=== PATIENT | female | born 1980 | race Caucasian/White ===

== ENCOUNTER 2021-02-02 09:31 | Observation (INO) | payer OTHER, SELFPAY ==
[2021-02-02] VITALS (56 sets, daily range): BP systolic 132–189; BP diastolic 84–127; PULSE 55–100; RESP 9–21; TEMP 35.5–37; O2SAT 95–99; BMI 25.7
--- NOTE | ~2021-02-02 | XR_ITS ---
EXAMINATION: XR chest 2V DATE: 02/02/2021 10:10 INDICATION: Chest pain TECHNIQUE: PA and lateral views of the chest are obtained. COMPARISON: None available FINDINGS: The lungs are free of acute opacities. There is no pleural effusion or pneumothorax. The ca rdiomediastinal silhouette is normal. The visualized bones and soft tissues are unremarkable. IMPRESSION: 1. No acute cardiopulmonary abnormality. Reviewed, dictated and finalized at location B. LE UI DESIGNER
--- NOTE | 2021-02-02 09:33 | ECG_ITS ---
Measurements Intervals [place] Rate: 84 P: 20 LA: 146 QRS: 3 QRSD: 93 T: 28 QT: 331 QTc: 393 Interpretive Statements SINUS RHYTHM DELAYED PRECORDIAL R/S TRANSITION VOLTAGE CRITERIA FOR LVH MINIMAL Q WAVES- HIGH LATERAL LEADS BASELINE ARTIFACT- I, III, AVL BORDERLINE ECG Electronically Signed On 02-02-2021 10:04:29 [employer] [employer] by Sixto Willis D.O.
--- NOTE | 2021-02-02 10:46 | ED.ARRPALP ---
HPI - Arrhythmia/Palpitations General Chief Complaint: Arrhythmia/Palpitations Stated Complaint: CP,PALPATIONS Time Seen by Provider: 02/02/21 10:30 Source: patient and RN notes reviewed Mode of arrival: ambulatory Limitations: no limitations History of Present Illness HPI narrative: This is a 40 year old female with history of hypertension who presents for evaluation of chest pain and palpitations. Last night she developed palpitations. She states it feels like her heart is skip beats and then it will speed up. She is also having associated left chest pain and shortness of breath with her symptoms. She thought her symptoms were due to anxiety, but this morning she felt clammy so she came to ER. She still feels like she is having palpitations. She denies cough, fever, nausea, vomiting, diarrhea, leg swelling or calf pain. She denies history of palpations. Several years ago, she had episode of tachycardia when she was coming off from Heroin. She has not had any more episode. She denies any recent drug use. She took her losartan for hypertension this morning. Related Data Allergies Allergy/AdvReac Type Severity Reaction Status Date / Time amoxicillin Allergy Mild Rash Verified 02/02/21 10:39 sumatriptan Allergy Mild ANAPHALAXIS, Verified 02/02/21 10:39 WHEEZING Review of Systems Review of Systems: All systems reviewed & are unremarkable except as noted in HPI and below PMFSH Past Medical History Medical History (Updated 02/02/21 @ 17:01 by Sindi Powell MD) Hypertension Surgical History Surgical History (Updated 02/02/21 @ 10:58 by Sindi Powell MD) History of hysterectomy Social History Social History (Updated 02/02/21 @ 10:58 by Sindi Poewll MD) Smoking status: Never smoker Substance use: former Substance use type: heroin Exam Narrative: GENERAL: Well-appearing, well-nourished, and in no acute distress. HEAD: Normocephalic, atraumatic EYES: PERRLA and EOMI, conjunctiva clear without discharge EARS: TM's clear bilaterally without erythema or dullness NOSE: Nares clear, no rhinorrhea or epistaxis THROAT:Mucous membranes moist, Oropharynx normal without erythema, exudate, peritonsillar swelling or fluctuance NECK: Supple, without lymphadenopathy or mass RESPIRATORY: No respiratory distress, Airway patent, Respirations non-labored, Clear to auscultation without rales, rhonchi or wheeze HEART: Regular rate and rhythm. No murmur heard. Normal peripheral pulses. ABDOMEN: Soft, nontender, nondistended, normal active bowel sounds. No masses. No rebound or guarding, No organomegaly. EXTREMITIES: No edema, normal strength with full range of motion. SKIN: Warm, dry, normal color without rash NEURO: Alert and oriented x3. CN 2-12 grossly intact. No focal deficits. PSYCH: Normal mood and affect. Course Reevaluation(s) Reevaluation #1: Patient's initial BP was was 189/105 and it decreased to 150/100 without treatment initially. Patient was given metoprolol for her palpitations and she reported that she felt better. On recheck of her BP, it is elevated to 190/110s and now patient is complaining of headache . She was given hydralazine 10 mg IV that has decreased BP to 155/94. She will be admitted. I discussed with Kaylene Monroe who accepts patient to [facility] at this time instead of IMU. Date: 02/02/21 Time: 16:57 Vital Signs Vital signs: Vital Signs Temperature 97.6 F 02/02/21 09:46 Pulse Rate 76 02/02/21 09:46 Respiratory Rate 18 02/02/21 09:46 Blood Pressure 189/105 H 02/02/21 09:46 Pulse Oximetry 99 02/02/21 09:46 Temperature 97.6 F 02/02/21 09:46 Pulse Rate 62 02/02/21 15:00 Respiratory Rate 13 02/02/21 14:45 Blood Pressure 186/110 H 02/02/21 13:40 Pulse Oximetry 98 02/02/21 15:00 MDM - Arrhythmia/Palpitations Lab Data Attestation: I reviewed the patient's lab results. Result diagrams: 02/02/21 11:03 02/02
[2021-02-02] MEDS: ASPIRIN 81 MG CHEWABLE TABLET 324 MG PO (11:03)
[2021-02-02 11:18] LABS: Basophils Percent Auto 0.5 % (0.2-1.2); Eosinophils Percent Auto 0.5 % (0-4.4); Hematocrit 42.7 % (37.0-47.0); Immature Granulocyte Absolute 0.04 K/mm3 (0.00-0.031); Immature Granulocyte Percent A 0.5 % (0-0.5); Lymphocytes Absolute Auto 1.52 K/mm3 (0.9-3.2); Lymphocytes Percent Auto 18.6 % (18.3-44.2); Mean Corpuscular HGB Conc 32.8 g/dl (32-36); Mean Corpuscular Hemoglobin 26.8 pg (26-34); Mean Corpuscular Volume 81.8 fl (80-100); Monocytes Absolute Auto 0.3 K/mm3 (0.1-0.6); Monocytes Percent Auto 3.8 % (2.6-8.5); Neutrophils Absolute Auto 6.2 K/mm3 (1.3-6.7); Neutrophils Percent Auto 76.1 % (45.5-73.1); Platelet Count Result 284 k/mm3 (150-375); Red Blood Count 5.22 M/mm3 (4.2-5.4); Red Cell Distribution Width 13.9 % (11.5-14.5); White Blood Count 8.2 K/mm3 (4.5-10.0)
[2021-02-02 11:24] LABS: D Dimer 0.29 ug/mL (<0.48)
[2021-02-02 11:25] LABS: INR 1.1; Partial Thromboplastin Time 33.4 SECONDS (22.3-36.8); Prothrombin Time 14.1 Seconds (11.1-14.7)
[2021-02-02 13:03] LABS: Blood Urea Nitrogen 14 mg/dL (7-17); Estimated Glomerular Filt Rate > 60
[2021-02-02 13:15] LABS: Troponin I < 0.012 ng/mL (0.000-0.034)
[2021-02-02 13:32] LABS: Anion Gap 13 mmol/L (8-16); Calcium 9.2 mg/dL (8.4-10.2); Carbon Dioxide 22 mmol/L (22-30); Chloride 102 mmol/L (98-107); Estimated CRCL calculation 75 ml/min; Glucose 96 mg/dL (65-110); Potassium 3.6 mmol/L (3.4-5.0); Sodium 137 mmol/L (137-145)
[2021-02-02] MEDS: METOPROLOL TARTRATE 50 MG TAB 25 MG PO (13:41)
--- NOTE | 2021-02-02 13:42 | PC.NURSE ---
pt c/o intermittent palpitations that match up with pvcs noted on monitor. family at bedside.
[2021-02-02 15:08] LABS: Troponin I < 0.012 ng/mL (0.000-0.034)
[2021-02-02] MEDS: hydrALAZINE HCL 20 MG/ML VIAL 10 MG IV PUSH (16:04)
[2021-02-02 17:46] LABS: Amphetamine Screen Urine Negative (Negative); Barbiturate Screen Urine Negative (Negative); Benzodiazepines Screen Urine Positive (Negative); Cannabinoid Screen Urine Negative (Negative); Cocaine Screen Urine Negative (Negative); Methadone Screen Urine Positive (Negative); Opiate Screen Urine Negative (Negative); Phencyclidine Screen Urine Negative (Negative)
--- NOTE | 2021-02-02 18:24 | PM.IMHP ---
H&P: HPI History of Present Illness Date/Time: 02/02/21 18:24 this is a 40-year-old female patient who has a history of high blood pressure. The patient tells me that she is a recovering opioid addict in goes to a methadone clinic daily. The patient stated that she has to check into the methadone clinic every day to receive her medication. She stated that she did so today. The patient stated that she has been under a lot of stress with her oldest son recently. The patient used to have a counselor that she could talk to but no longer has a mental health counselor that she can talk to. She is not on anything for depression or anxiety. The patient admits that she still continues to have strong urges to use opioids. She denies using any other narcotics other than the methadone. The patient came to the emergency room with complaints of chest pain and palpitations. Last night she developed these palpitations. She felt like her heart was skipping beats. This morning she felt very clammy and came to the emergency room. The patient took her routine home medications this morning. Her blood pressure initially was 189/105. She was given several doses of hydralazine. Her EKG was read as sinus rhythm with a heart rate of 84. The patient was given aspirin, Lopressor, and 3 doses of hydralazine and IV Tylenol in the emergency room. Patient stated that she starting to feel somewhat better. Patient's drug toxicology screen came back positive for methadone and benzodiazepine. Troponin negative x2 The patient is being admitted to observation status on the date of service of 02/02/2021. Chief Complaint: Chest pain Review of Systems Review of Systems: All systems reviewed & are unremarkable except as noted in HPI and below Constitutional: Constitutional: Reports as per HPI and Reports no additional constitutional complaints Eyes: Eyes: Reports as per HPI and Reports no additional eye complaints ENT: Reports system reviewed and no additional complaints, except as documented and Reports Normal hearing present Cardiovascular: Cardiovascular: Reports no additional cardiovascular complaints Respiratory: Respiratory: Reports no additional respiratory complaints and Reports no additional respiratory complaints Gastrointestinal: Gastrointestinal: Reports as per HPI and Reports no additional gastrointestinal complaints Musculoskeletal: Musculoskeletal: Reports no additional musculoskeletal complaints Integumentary/Breasts: Skin/Breast: Reports system reviewed and no additional complaints, except as docu and Reports as per HPI Neurologic: Reports system reviewed and no additional complaints, except as documented, Reports as per HPI and Reports Normal hearing present Psychiatric: Psychiatric: Reports no additional psychiatric complaints and Reports as per HPI Endocrine: Endocrine: Reports no additional endocrine complaints Hematologic/Lymphatic: Hematologic/Lymphatic: Reports no additional hematologic/lymphatic complaints Allergic/Immunologic: Allergic/Immunologic: Reports no additional allergic/immunologic complaints PMFSH Past Medical History Medical History (Updated 02/02/21 @ 18:35 by Kaylene Monroe NP) Hypertension Opioid abuse Surgical History Surgical History (Updated 02/02/21 @ 18:35 by Kaylene Monroe NP) H/O tubal ligation History of hysterectomy Family History Family History (Updated 02/02/21 @ 18:35 by Kaylene Monroe NP) Mother Atrial fibrillation Social History Social History (Updated 02/02/21 @ 18:36 by Kaylene Monroe NP) Social History: The patient stated that she is and she has 3 children. She stated that she goes to the methadone clinic and receives methadone every day. She denies any alcohol marijuana or illicit drugs. 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 She does not have a durable power attorney lawyer for healthcare. Code status full code
--- NOTE | 2021-02-02 19:15 | ADMGEN ---
This patient, Gely Allen, was admitted to Medical Room 253-01. Patient/family oriented to hospital policies and general routines including ID bracelet, bed and alarms, visiting hours, pain management, procedures, bathroom and other care routines, personal items, smoking policy, room service/diet, and visiting hours. Information on how to activate the Rapid Response Team has been discussed. Patient/Family are encouraged to report perceived risks to care and to ask questions if they do not understand what they are told or what they should do.
[2021-02-02 21:49] LABS: Troponin I < 0.012 ng/mL (0.000-0.034)
[2021-02-03] VITALS (8 sets, daily range): BP systolic 128–152; BP diastolic 69–87; PULSE 61–89; RESP 14–18; TEMP 36.6–36.8; O2SAT 98–99
--- NOTE | 2021-02-03 05:27 | PC.NURSE ---
0520 SPOKE WITH DARIUS DEGROOT AT [facility] ABOUT PT METHADONE DOSE SHE CONFIRMED THE PT TAKES 170 MG OF METHADONE DAILY AND HER LAST DOSE WAS YESTERDAY 02/02
--- NOTE | 2021-02-03 06:00 | ECHO_ITS ---
Patient Info Name: Gely Allen Age: 40 years : 1980 Gender: Female Ht: 65 in Wt: 154 lbs BSA: 1.80 m2 HR: 60 bpm BP: 128 / 83 mmHg Heart Rhythm: Sinus Rhythm Technical Quality: Good Exam Date: 02/03/2021 10:22 AM Exam Location: [facility] Patient Status: Outpatient Admit Date: 02/02/2021 Staff Ordering Physician: Sindi Powell MD [employer] Worker Composites: Paige Segovia RDCS Attending Provider: Yaa Arvizu PA-C Referring Physician: Andre PALENCIA; Exam Type: CA echo doppler color flow Study Info Indications R00.2 - Palpitations Complete two-dimensional, color flow and Doppler transthoracic echocardiogram is performed. Summary 1. Complete two-dimensional, color flow and Doppler transthoracic echocardiogram is performed. 2. Normal left ventricular size and thickness with good systolic function of all segments. No segmental wall motion abnormalities. Calculated ejection fraction 65%. Grade 2 diastolic dysfunction. Normal global longitudinal strain,-18%. 3. There is trace tricuspid valve regurgitation. 4. No pulmonary hypertension, estimated pulmonary arterial systolic pressure is 24 mmHg. 5. Normal sinus rhythm. Left Ventricle Left ventricular chamber dimension is normal. Left ventricular systolic function is normal, estimated at 60-65%. There is no increased left ventricular wall thickness. Left ventricular septal wall motion is normal. The left ventricular diastolic function is normal. Global longitudinal strain is normal at 18 %. Right Ventricle Right ventricular chamber dimension is normal. Right ventricular systolic function is normal. Left Atria Left atrial chamber dimension is normal. Right Atria Right atrial chamber dimension is normal. Aortic Valve The aortic valve is trileaflet. There is no aortic valve sclerosis. There is no aortic valve stenosis. There is no aortic valve regurgitation. Pulmonic Valve The pulmonic valve is normal. There is no pulmonic valve stenosis. There is no pulmonic regurgitation. Mitral Valve The mitral valve has normal leaflets. There is no mitral valve stenosis. There is no mitral valve regurgitation. Tricuspid Valve The tricuspid valve leaflets are normal. There is no significant tricuspid valve stenosis. There is trace tricuspid valve regurgitation. No pulmonary hypertension, estimated pulmonary arterial systolic pressure is 24 mmHg. Pericardium/Pleural The pericardium appears normal. There is no pericardial effusion. Inferior Vena Cava Not well visualized inferior vena cava with >50% collapse upon inspiration consistent with Empty right atrial pressure, 10 mmHg. Aorta The aortic root size at the sinus of Valsalva is normal. The prox ascending aorta size is normal. Left Ventricular Outflow Tract Name Value Normal LVOT 2D LVOT Diameter 2.0 cm LVOT Doppler LVOT Peak Gradient 4 mmHg LVOT Mean Gradient 2 mmHg LVOT VTI 20 cm LVOT VTI/AV VTI Ratio 1.0 LVOT Stroke Volume
[2021-02-03] MEDS: methADONE HCL (*CRX) 10 MG TABLET 170 MG PO (08:39)
[2021-02-03] MEDS: LOSARTAN POTASSIUM 100 MG TABLET PO (08:39)
[2021-02-03] MEDS: LORazepam (*CRX) 0.5 MG TABLET PO ×2 (08:39→16:37)
[2021-02-03] MEDS: ENOXAPARIN 40 MG/0.4 ML SYRINGE SUB-Q (08:40)
[2021-02-03 09:48] LABS: Basophils Percent Auto 0.3 % (0.2-1.2); Eosinophils Percent Auto 0.5 % (0-4.4); Hematocrit 40.1 % (37.0-47.0); Hemoglobin 13.4 g/dL (12.0-15.0); Immature Granulocyte Absolute 0.02 K/mm3 (0.00-0.031); Immature Granulocyte Percent A 0.2 % (0-0.5); Lymphocytes Percent Auto 15.8 % (18.3-44.2); Mean Corpuscular HGB Conc 33.4 g/dl (32-36); Mean Corpuscular Hemoglobin 26.8 pg (26-34); Mean Corpuscular Volume 80.2 fl (80-100); Mean Platelet Volume 9.8 fl (7.4-10.4); Monocytes Absolute Auto 0.3 K/mm3 (0.1-0.6); Monocytes Percent Auto 2.8 % (2.6-8.5); Neutrophils Absolute Auto 7.1 K/mm3 (1.3-6.7); Neutrophils Percent Auto 80.4 % (45.5-73.1); Platelet Count Result 288 k/mm3 (150-375); Red Cell Distribution Width 13.8 % (11.5-14.5); White Blood Count 8.9 K/mm3 (4.5-10.0)
[2021-02-03 09:59] LABS: Anion Gap 10 mmol/L (8-16); Blood Urea Nitrogen 14 mg/dL (7-17); Calcium 9.4 mg/dL (8.4-10.2); Carbon Dioxide 26 mmol/L (22-30); Chloride 101 mmol/L (98-107); Estimated CRCL calculation 59 ml/min; Estimated Glomerular Filt Rate > 60; Glucose 237 mg/dL (65-110); Potassium 3.9 mmol/L (3.4-5.0); Sodium 137 mmol/L (137-145)
[2021-02-03] MEDS: ACETAMINOPHEN 325 MG TABLET 650 MG PO (14:00)
--- NOTE | 2021-02-03 17:06 | PM.IMPN ---
Progress Note: A&P Assessment and Plan (1) Hypertension, uncontrolled: Code(s): I10 - Essential (primary) hypertension Status: Acute Assessment and Plan: Blood pressure was elevated on presentation up to 175/127. No evidence of end-organ dysfunction. She received hydralazine and labetalol and did have improvement in her blood pressures Resume home losartan Her blood pressure is better controlled at this time. Last BP 150/78 Continue to monitor blood pressure trends. Consider 2nd antihypertensive agent if BP remains elevated (2) Palpitations: Code(s): R00.2 - Palpitations Status: Acute Assessment and Plan: EKG reviewed showing sinus rhythm. Telemetry reviewed with no arrhythmias or pauses, some occasional episodes of bradycardia Palpitations have resolved (3) Opioid abuse: Code(s): F11.10 - Opioid abuse, uncomplicated Status: Chronic Assessment and Plan: History of opiate abuse maintained on methadone. She goes to methadone clinic daily. Continue home methadone dose, verified by her methadone clinic Follow-up with methadone clinic on discharge (4) Chest pain: Code(s): R07.9 - Chest pain, unspecified Status: Acute Assessment and Plan: Episode of atypical chest pain this afternoon. See subjective for further details. Clinical picture not consistent with cardiac etiology. Troponins negative x3 EKG reviewed with no ischemic changes Possibly related to anxiety. Continue low-dose Ativan p.r.n. Possibly related to GERD. Will initiate antacids Continue to monitor Subjective Date/time seen: 02/03/21 17:06 Interval history: Date of service: 02/03/2021 Gely Allen is a 40-year-old female with a history of hypertension and opioid abuse on methadone who is seen in follow-up for hypertension and palpitations. She is feeling slightly better today. She no longer endorses palpitations. She did say that this afternoon after walking back from taking a shower she developed a midsternal chest discomfort that went up from her chest to her neck to her left ear. It then also went to her right ear briefly but that quickly resolved. Discomfort the midsternal area and the right ear persisted. She described this as a sharp sensation. She also thought that it was similar to a really bad heartburn. She denied ringing in the ears, ear pain, hearing changes. Denied jaw pain or arm pain. No diaphoresis. Denies anxiety, though noted she was much more anxious this morning. She did have another episode of supplementing palpitations while in the shower. She denies nausea, vomiting, fever, chills, dizziness, lightheadedness, weakness. Denies shortness of breath. No coughing. Denies swelling in her extremities. She does have a mild frontal headache. She has no additional concerns at this time. Review of Systems Review of Systems: All systems reviewed & are unremarkable except as noted in HPI and below Exam Narrative: Ms. Allen is well-nourished, well-appearing 40-year-old female who is lying supine in bed. She appears comfortable and is in NARD. Neuro: awake, alert and oriented x4, speech clear, no focal neuro deficits noted HEENMT: normocephalic, atraumatic, EOMI, sclerae anicteric, moist oral mucosa Neck: supple, no lymphadenopathy Chest: no reproducible chest pain with palpation Respiratory: clear to auscultation bilaterally, nonlabored breathing Cardio: regular rate, regular rhythm with S1-S2 Abdomen: nondistended, normoactive bowel sounds, soft, nontender to palpation Extremities: no edema, erythema, or tenderness to palpation, DP pulses 2+ bilaterally Skin: no rashes or lesions, warm and dry Psych: appropriate mood and affect, judgment and insight intact Objective Data Vital Signs Vital Signs: Vital Signs - 24 hr 02/02/21 17:18 02/02/21 17:30 02/02/21 17:45 Temperature Pulse Rate 77 69 66 Respiratory Rate
[2021-02-03] MEDS: FAMOTIDINE 20 MG TABLET PO (19:59)
[2021-02-04 06:00] VITALS: BP 137/84; PULSE 81; RESP 18; TEMP 37; O2SAT 98
[2021-02-04 06:42] LABS: Glucose Point of Care 91 mg/dl (65-105)
[2021-02-04] MEDS: LOSARTAN POTASSIUM 100 MG TABLET PO (08:22)
[2021-02-04] MEDS: methADONE HCL (*CRX) 10 MG TABLET 170 MG PO (08:22)
[2021-02-04] MEDS: FAMOTIDINE 20 MG TABLET PO (08:23)
[2021-02-04] MEDS: ENOXAPARIN 40 MG/0.4 ML SYRINGE SUB-Q (08:23)
[2021-02-04] MEDS: LORazepam (*CRX) 0.5 MG TABLET PO (08:23)
--- NOTE | 2021-02-04 11:06 | PM.DS ---
DS: Admitting Diagnosis Discharge Date 02/04/2021 Admitting Diagnosis Palpitations DS: Discharge Diagnosis Discharge Diagnosis (1) Hypertension, uncontrolled: Code(s): I10 - Essential (primary) hypertension Status: Acute Assessment and Plan: Blood pressure was elevated on presentation up to 175/127. No evidence of end-organ dysfunction. She received hydralazine and labetalol and did have improvement in her blood pressures. Home losartan was reviewed and blood pressures were well controlled. Instructed to monitor blood pressures at home daily for 1-2 weeks and follow-up with primary care provider for further monitoring (2) Palpitations: Code(s): R00.2 - Palpitations Status: Acute Assessment and Plan: EKG reviewed showing sinus rhythm. Telemetry reviewed with no arrhythmias or pauses, some occasional episodes of sinus bradycardia (48-55). Palpitations resolved. May have been related to anxiety. Follow-up with PCP in consider event monitor if recurrence. (3) Opioid abuse: Code(s): F11.10 - Opioid abuse, uncomplicated Status: Chronic Assessment and Plan: History of opiate abuse maintained on methadone. She goes to methadone clinic daily. Home methadone continue during hospitalization, follow-up with clinic on discharge (4) Chest pain: Code(s): R07.9 - Chest pain, unspecified Status: Acute Assessment and Plan: Episode of atypical chest pain 02/03/2021. Clinical picture not consistent with cardiac etiology. Troponins negative x3. EKG reviewed with no ischemic changes. May have been related to anxiety. Symptoms resolved entirely. DS: Summary Hospital Course Hospital Course: Date of admission: 02/02/2021 Date of discharge: 02/04/2021 Gely Allen is a 40-year-old female with a history of hypertension and opioid abuse on methadone who presented to the emergency department 820 with complaints palpitations. On presentation to the emergency department, her blood pressure was elevated at 189/95, additional vital signs are stable, CBC and BMP unremarkable, troponin, TSH within normal limits, and CXR showed no acute cardiopulmonary findings. She was admitted to the hospitalist service for further evaluation and management. Please see above for further details. Her blood pressure improved and remained stable on her home regimen. She will continue to monitor at home. Palpitations and chest pain resolved entirely. She will need to follow-up with her primary care provider in 1 week for further monitoring. She was feeling much better and requested discharge home. Given her overall improvement, she was determined to no longer require inpatient care and was felt to be stable for discharge. We discussed worrisome signs and symptoms for which to return and she was educated on her medications. She was discharged in hemodynamically stable condition on 02/04/2021. Status at Discharge Functional status at discharge: independent ambulation Overall status at discharge: patient is back to baseline Time Spent with Patient Time attestation: Total time spent providing and/or coordinating discharge services: 45 minutes Time spent: Greater than 30 minutes Exam Narrative: Ms. Allen is well-nourished, well-appearing 40-year-old female who is lying supine in bed. She appears comfortable and is in NARD. Neuro: awake, alert and oriented x4, speech clear, no focal neuro deficits noted HEENMT: normocephalic, atraumatic, EOMI, sclerae anicteric, moist oral mucosa Neck: supple, no lymphadenopathy Respiratory: clear to auscultation bilaterally, nonlabored breathing Cardio: regular rate, regular rhythm with S1-S2 Abdomen: nondistended, normoactive bowel sounds, soft, nontender to palpation Extremities: no edema, erythema, or tenderness to palpation, DP pulses 2+ bilaterally Skin: no rashes or lesions, warm and dry Psych: appropriate mood and affect, judgment and
== END 2021-02-04 12:54 | disposition home or self-care (01) ==
LOC: ANHED 17:01 → ANH2MED 18:09
PROVIDERS: Physician Assistant; Admitting Provider Internal Medicine; Emergency Provider General Practice; PCP Physician Assistant; Visit Provider Internal Medicine
DX: R07.9 Chest pain, unspecified (principal); R00.2 Palpitations; I10 Essential (primary) hypertension; F11.10 Opioid abuse, uncomplicated; Z23 Encounter for immunization
CPT/HCPCS: 36415; 71046; 80048; 80307; 82948; 83735; 84443; 84484; 85025; 85380; 85610; 85730; 90471; 90653; 93005; 93306; 96372; 96374; 96375; 99285; A9270; G0008; G0378; G0379; J0131; J0360; J1650

== ENCOUNTER 2022-06-30 10:07 | Inpatient (IN) | payer OTHER, SELFPAY ==
[2022-06-30] VITALS (20 sets, daily range): BP systolic 145–168; BP diastolic 62–105; PULSE 74–160; RESP 13–18; TEMP 36.9–37.2; O2SAT 100; BMI 27.8
--- NOTE | 2022-06-30 | ECHO_ITS ---
Patient Info Name: Gely Allen Age: 41 years : 1980 Gender: Female Ht: 65 in Wt: 167 lbs BSA: 1.88 m2 HR: 127 bpm BP: 168 / 62 mmHg Heart Rhythm: Tachycardia Technical Quality: Fair Exam Date: 06/30/2022 5:18 PM Exam Location: [facility] Patient Status: Inpatient Admit Date: 06/30/2022 Staff Ordering Physician: Ronny Barrientos MD Rotor Balancer: Marsha Gardiner RDCS Attending Provider: Peggy Quinn MD Referring Physician: Iliana MORALES; Exam Type: CA echo doppler color flow Study Info Indications - wide complex tachycardia R07.9 - Chest pain, unspecified Complete two-dimensional, color flow and Doppler transthoracic echocardiogram is performed. Summary 1. Complete two-dimensional, color flow and Doppler transthoracic echocardiogram is performed. 2. Left ventricular chamber dimension is normal. 3. Left ventricular systolic function is normal, estimated at 60-65%. 4. There is mildly increased left ventricular wall thickness. 5. The left ventricular diastolic function is normal. 6. The mid anteroseptal is akinetic. 7. The apical septum, apical cap, and mid inferoseptal are hypokinetic. 8. There is mild tricuspid valve regurgitation. Left Ventricle Left ventricular chamber dimension is normal. Left ventricular systolic function is normal, estimated at 60-65%. There is mildly increased left ventricular wall thickness. The left ventricular diastolic function is normal. The mid anteroseptal is akinetic. The apical septum, apical cap, and mid inferoseptal are hypokinetic. All other bennett appear normal. Right Ventricle Right ventricular chamber dimension is normal. Right ventricular systolic function is normal. Left Atria Left atrial chamber dimension is normal. Right Atria Right atrial chamber dimension is normal. Atrial Septum Intact interatrial septum visualized by color flow imaging. Aortic Valve The aortic valve is probable trileaflet. There is mild aortic valve sclerosis. There is no aortic valve stenosis. There is trace aortic valve regurgitation. Pulmonic Valve The pulmonic valve is normal. There is no pulmonic valve stenosis. There is trace pulmonic regurgitation. Mitral Valve The mitral valve has normal leaflets. There is no mitral valve stenosis. There is trace mitral valve regurgitation. Tricuspid Valve The tricuspid valve leaflets are normal. There is no significant tricuspid valve stenosis. There is mild tricuspid valve regurgitation. Pericardium/Pleural The pericardium appears normal. There is no pericardial effusion. Aorta The aortic root size at the sinus of Valsalva is normal. Left Ventricular Outflow Tract Name Value Normal LVOT 2D LVOT Diameter 2.0 cm LVOT Doppler LVOT Peak Gradient 5 mmHg LVOT Mean Gradient 3 mmHg LVOT VTI 17 cm LVOT VTI/AV VTI Ratio 0.9 LVOT Stroke Volume 51 ml LVOT CO 6.1 l/min LVOT
--- NOTE | ~2022-06-30 | CT_ITS ---
EXAMINATION: CTA chest PE protocol DATE: 06/30/2022 12:37 INDICATION: Chest pain. Shortness of breath. TECHNIQUE: Computed tomography angiography (CTA) of the chest was performed with 100 mL Omnipaque-350 intravenous contrast timed to evaluate the pulmonary arteries. Coronal maximum intensity projection 3D-reconstructions were created by the technologist. Automated exposure control and iterative reconst ruction technique were employed. The dose-length product was 556.02 mGy-cm. COMPARISON: None. FINDINGS: The lungs demonstrate mild atelectasis. No pleural effusion. There is a 6 mm nodule left lo wer lobe, likely not clinically significant. The heart size is normal. No pericardial effusion. There is no pulmonary embolus. There is mild thoracic spondylosis. IMPRESSION: 1. No pulmonary embolus. Reviewed, dictated and finalized at location A. IMPRESSION: 1. No pulmonary embolus.
--- NOTE | ~2022-06-30 | CT_ITS ---
EXAMINATION: CT brain wo con INDICATION: Altered mental status, lethargy COMPARISON: None TECHNIQUE: Standard unenhanced head CT. The dose-length product (DLP) was 605.33 mGy-cm. The mA was a djusted according to patient size. Iterative reconstruction technique was employed. FINDINGS: There is no intracranial hemorrhage, acute infarction, or abnormal mass lesion. The ventric les are normal. There is no abnormal mass effect or midline shift. The abdi-white matter differentiat ion is normal. The basal cisterns are patent. The orbits are normal. The paranasal sinuses, mastoids and calvarium are normal. IMPRESSION: 1. No acute intracranial abnormality. Reviewed, dictated and finalized at location B.
--- NOTE | ~2022-06-30 | XR_ITS ---
EXAMINATION: XR chest 2V DATE: 06/30/2022 11:15 INDICATION: Shortness of breath. Diffuse chest pain and weakness. TECHNIQUE: AP and lateral views of the chest were obtained. COMPARISON: Chest radiograph dated 02/02/2021 FINDINGS: The lungs remain clear with no focal airspace opacities, pulmonary edema, pleural effusion or pneumot horax. The cardiomediastinal silhouette is normal. Visualized bones and soft tissues are unremarkable . IMPRESSION: 1. No acute cardiopulmonary disease. Reviewed, dictated and finalized at location A.
--- NOTE | ~2022-06-30 | US_ITS ---
EXAMINATION: US soft tissue UE LT DATE: 06/30/2022 23:25 INDICATION: Swelling and erythema at the left upper arm TECHNIQUE: Multiple grayscale and Doppler ultrasound images of the region of concern at the left uppe r arm were obtained. COMPARISON: None FINDINGS: There is prominent reticular pattern of decreased echogenicity in the subcutaneous fat at the region of concern consistent with cellulitis. No abscess or other abnormal masses or fluid collections ident ified. IMPRESSION: 1. Prominent subcutaneous edema consistent with cellulitis. No evident abscess. Reviewed, dictated and finalized at location A.
--- NOTE | ~2022-06-30 | US_ITS ---
EXAMINATION: US soft tissue UE RT DATE: 06/30/2022 13:48 INDICATION: Induration, warmth and erythema at the right upper extremity. TECHNIQUE: Grayscale and color Doppler images of the region of concern at the right upper extremity w ere obtained. COMPARISON: None. FINDINGS: The right internal jugular vein, subclavian vein, axillary vein, brachial vein, basilic vein, radial vein, and ulnar vein are patent. There is focal soft tissue swelling and subcutaneous edema in the ri ght upper arm in the expected region of the right cephalic vein which was unable be identified either on grayscale images with color Doppler. There is more focal 12 x 7 mm region of decreased echogenici ty with spiculated margins and without posterior acoustic enhancement which could represent a more fo tosha small region of phlegmonous change. No discrete abscess. Per discussion with the gear cutter, the right cephalic vein was able to be identified more distally on real-time sonography and became obscu red upon reaching the region of edema but images were not recorded. IMPRESSION: 1. Focal soft tissue swelling and subcutaneous edema consistent with cellulitis with possible small r egion of phlegmonous change without organized abscess in the right upper extremity region of concern. This occurs along the reported course of the right cephalic vein which became obscured in this regio n and is unable to be identified with either grayscale or color Doppler imaging which raises concern for secondary thrombosis/occlusion. Findings were discussed with Jovana Wells, the nurse gopi amador for the patient, at 2:10 PM. 2. Otherwise patent right upper extremity veins with no definitive venous thrombosis. Reviewed, dictated and finalized at location A. IMPRESSION: 1. Focal soft tissue swelling and subcutaneous edema consistent with cellulitis with possible small region of phlegmonous change without organized abscess in the right upper extremity region of concern. This occurs along the reported cou rse of the right cephalic vein which became obscured in this region and is unab le to be identified with either grayscale or color Doppler imaging which raises concern for secondary thrombosis/occlusion. Findings were discussed with Esther Wells, the nurse caring for the patient, at 2:10 PM. 2. Otherwise patent right upper extremity veins with no definitive venous throm bosis.
--- NOTE | 2022-06-30 10:24 | ECG_ITS ---
Measurements Intervals [place] Rate: 96 P: 58 [place]: 219 QRS: -5 QRSD: 103 T: 8 QT: 310 QTc: 393 Interpretive Statements SINUS RHYTHM WITH FIRST DEGREE AV BLOCK POSSIBLE LEFT ATRIAL ENLARGEMENT [-0.1mV P WAVE IN V1/V2] NONSPECIFIC ST AND T-WAVE ABNORMALITY ABNORMAL ECG COMPARED TO ECG 02/02/2021 09:37:29 FIRST DEGREE AV BLOCK NOW PRESENT T-WAVE ABNORMALITY NOW PRESENT Electronically Signed On 06-30-2022 13:51:49 CDT by Ronny Barrientos M.D.
--- NOTE | 2022-06-30 10:33 | ED.SOB ---
HPI - SOB/Dyspnea General Chief Complaint: Shortness of Breath/Dyspnea <JESSIE Wilkinson Last Filed: 06/30/22 19:30> Stated Complaint: sob <JESSIE Wilkinson Last Filed: 06/30/22 19:30> Time Seen by Provider: 06/30/22 10:10 <JESSIE Wilkinson Last Filed: 06/30/22 19:30> Source: patient <JESSIE Wilkinson Last Filed: 06/30/22 19:30> Mode of arrival: ambulatory <JESSIE Wilkinson Last Filed: 06/30/22 19:30> Limitations: no limitations <JESSIE Wilkinson Last Filed: 06/30/22 19:30> History of Present Illness HPI Narrative: Patient is a 41 y/o female who presents to the ED with c/o SOB. Patient reports she had increased anxiety yesterday. This morning, she had an episode where she felt very out of it. Patient states she never lost consciousness but had a hard time responding to her daughter. She also feels that she is breathing very fast and having to work harder to breathe. She feels her heart racing. She notes a history of PVCs. She reports having intermittent midsternal chest pain since 6 AM this morning, no significant aggravating or alleviating factors. Patient also reports having tingling in her extremities, but denies nausea, vomiting, abdominal pain, fevers, cough or cold symptoms, lower extremity pain or swelling. Patient is a recovering IV drug user, opioids/fentanyl, and is currently on methadone. Patient reports a history of hypertension, but is not on any medication for this currently. Unable to tell me why. She denies history of hyperlipidemia, diabetes, smoking, family history of heart disease. <JESSIE Wilkinson Last Filed: 06/30/22 19:30> Related Data Home Medications: Home Medications Medication Instructions Recorded Confirmed methadone 190 mg PO DAILY 02/03/21 06/30/22 famotidine 20 mg tablet (Pepcid) 20 mg PO BID PRN Stomach Upset 06/30/22 06/30/22 <Melodie Sher PA-C - Last Filed: 06/30/22 19:30> Allergies/Adverse Reactions: Allergies Allergy/AdvReac Type Severity Reaction Status Date / Time amoxicillin Allergy Mild Rash Verified 06/30/22 10:24 sumatriptan Allergy Mild ANAPHALAXIS, Verified 06/30/22 10:24 WHEEZING <Melodie Sher PA-C - Last Filed: 06/30/22 19:30> Review of Systems Review of Systems: CONSTITUTIONAL: Denies fever, chills, or sweats. EYES: Denies visual changes. ENT: Denies rhinorrhea, congestion, sore throat. CARDIOVASCULAR: See HPI. RESPIRATORY: See HPI. GASTROINTESTINAL: Denies abdominal pain, nausea, vomiting, or diarrhea. GENITOURINARY: Denies dysuria or hematuria. SKIN: Denies rash or itching. MUSCULOSKELETAL: Denies back pain, joint pain, or myalgia. NEUROLOGIC: See HPI. PSYCHIATRIC: See HPI. <Melodie Sher PA-C - Last Filed: 06/30/22 19:30> All systems reviewed & are unremarkable except as noted in HPI and below <Melodie Sher PA-C - Last Filed: 06/30/22 19:30> PMFSH Past Medical History Medical History: Medical History Anxiety Bipolar disorder Depression Hypertension Opioid abuse <Melodie Sher PA-C - Last Filed: 06/30/22 19:30> Surgical History Surgical History: Surgical History History of hysterectomy History of tubal ligation <Melodie Sher PA-C - Last Filed: 06/30/22 19:30> Family History Family History: Family History Mother Atrial fibrillation <Melodie Sher PA-C - Last Filed: 06/30/22 19:30> Social History Social History: Social History Social History: Surrogate medical decision maker: Maria L Cuevas, mother. Code status: Full code. Smoking status: Never smoker Alcohol intake: never Substance
--- NOTE | 2022-06-30 11:07 | PC.NURSE ---
Pt to CT scan via stretcher.
[2022-06-30 11:20] LABS: Basophils Percent Auto 0.1 % (0.2-1.2); Hematocrit 38.2 % (37.0-47.0); Hemoglobin 12.5 g/dL (12.0-15.0); Immature Granulocyte Absolute 0.05 K/mm3 (0.00-0.031); Immature Granulocyte Percent A 0.3 % (0-0.5); Lymphocytes Absolute Auto 1.37 K/mm3 (0.9-3.2); Lymphocytes Percent Auto 9.1 % (18.3-44.2); Mean Corpuscular HGB Conc 32.7 g/dl (32-36); Mean Corpuscular Volume 85.7 fl (80-100); Mean Platelet Volume 10.4 fl (7.4-10.4); Monocytes Absolute Auto 0.7 K/mm3 (0.1-0.6); Monocytes Percent Auto 4.6 % (2.6-8.5); Neutrophils Absolute Auto 12.9 K/mm3 (1.3-6.7); Neutrophils Percent Auto 85.9 % (45.5-73.1); Platelet Count Result 344 k/mm3 (150-375); Red Blood Count 4.46 M/mm3 (4.2-5.4)
[2022-06-30] MEDS: SODIUM CHLORIDE 0.9% IV 1,000 ML 999 ML IV CONT ×2 (11:26→12:56)
[2022-06-30 11:28] LABS: INR 1.2; Partial Thromboplastin Time 28.3 SECONDS (22.3-36.8); Prothrombin Time 14.9 Seconds (11.1-14.7)
[2022-06-30 11:31] LABS: Albumin Level 4.5 g/dL (3.5-5.1); Alkaline Phosphatase 108 U/L (38-126); Anion Gap 16 mmol/L (8-16); Aspartate Amino Transferase 35 U/L (14-36); Bilirubin,Total 0.6 mg/dL (0.2-1.3); Blood Urea Nitrogen 16 mg/dL (7-17); Calcium 9.2 mg/dL (8.4-10.2); Carbon Dioxide 22 mmol/L (22-30); Chloride 103 mmol/L (98-107); Estimated CRCL calculation 74 ml/min; Estimated Glomerular Filt Rate > 60; Glucose 154 mg/dL (65-110); Potassium 3.6 mmol/L (3.4-5.0); Sodium 141 mmol/L (137-145)
[2022-06-30] MEDS: MAGNESIUM SULF 2 GM/WATER 50ML 2 GM/50 ML BAG IVPB ×2 (11:31→20:35)
--- NOTE | 2022-06-30 11:39 | PC.NURSE ---
radha in lab contacted regarded adding on mag level.
[2022-06-30 11:44] LABS: D Dimer 0.73 ug/mL (<0.48)
[2022-06-30 11:46] LABS: Alanine Aminotransferase 48 U/L (6-35)
--- NOTE | 2022-06-30 11:47 | PC.NURSE ---
pt asked to provide urine sample, pt stated she is unable to void at this time but will try in a few minutes .
[2022-06-30 11:52] LABS: Magnesium 2.1 mg/dL (1.6-2.3)
--- NOTE | 2022-06-30 12:25 | PC.NURSE ---
Pt to CT scan via stretcher at this time, pt is on tele monitor. HR 105.
[2022-06-30 13:34] LABS: Appearance Urine Cloudy (Clear); Bacteria Urine Rare /hpf; Bilirubin Urine Negative (Negative); Blood Urine Negative (Negative); Color Urine Yellow (Yellow); Glucose Urine UA Negative (Negative); Ketones Urine Trace mg/dL (Negative); Leukocyte Esterase Ur Negative LEU/UL (Negative); Nitrate Urine Negative (Negative); Non Pathogenic Casts 0-2; Protein Urine Negative (Negative); RBC Urine 0-2 /hpf (0-2); Specific Grav Ur 1.021 (1.001-1.035); Squamous Epithelial Cell Urine Few /hpf (Few); Urobilinogen Urine 0.2 mg/dL (<2.0); WBC Urine 0-5 /hpf
--- NOTE | 2022-06-30 13:38 | PC.NURSE ---
u/s in room at this time for test on left upper arm
[2022-06-30 13:42] LABS: Add Urine Microscopic? YES
[2022-06-30 15:05] LABS: Amphetamine Screen Urine Negative (Negative); Barbiturate Screen Urine Negative (Negative); Benzodiazepines Screen Urine Negative (Negative); Cannabinoid Screen Urine Negative (Negative); Cocaine Screen Urine Negative (Negative); Methadone Screen Urine Positive (Negative); Opiate Screen Urine Negative (Negative); Phencyclidine Screen Urine Negative (Negative)
--- NOTE | 2022-06-30 15:45 | PM.IMHP ---
H&P: HPI History of Present Illness Date/Time: 06/30/22 15:45 Chief Complaint: Chest pain and shortness a breath. Narrative: This is a 41-year-old female with history of opiate drug abuse on methadone who presented to the emergency department from for evaluation of chest pain shortness a breath. Patient provides the following history. She got up this morning at about 06:00 and was feeling anxious, short of breath, and reports intermittent, nonradiating midsternal chest discomfort which she has a difficult time describing. She also reports having an episode where she felt ?very out of it? but there was no loss of consciousness. She was afebrile on arrival and her blood pressures have been persistently in the 140s to 150 systolic. Pertinent labs include a WBC count of 15.0, D-dimer 0.73, sodium 141, potassium 3.6, calcium 9.2, magnesium 2.1, troponin 0.050. Chest CTA was negative for pulmonary embolism. EKG did not demonstrate any acute ST segment deviations. An ultrasound of the right arm showed a focal soft tissue swelling and subcutaneous edema consistent with cellulitis and possible right cephalic vein thrombus. Patient admits that she skin pops and though she has been trying to get clean she does admit to using fentanyl last night. While still in the ED she was noted to have a nearly 40 beat run of ventricular tachycardia while in the ED. She was alert the entire time but was nauseated, diaphoretic, short of breath, and she was having some chest discomfort. She was given magnesium and was admitted to the IMU. While in IMU she had a no other run of ventricular tachycardia, initially concerning for torsades though it appeared more monomorphic thereafter (lasting approximately 1 minute) and she was brought to the hospital laboratory technician as echocardiogram showed some wall motion abnormalities. Her coronary arteries were clean but she had several runs of polymorphic ventricular tachycardia requiring defibrillation. She was bolused with amiodarone and she is now in ICU on a lidocaine drip. She has no known personal or family history of long QT syndrome. Aside from methadone and the fentanyl last night, she does not take any medications on a routine basis. Review of Systems Review of Systems: Twelve systems were reviewed and are negative except for as per HPI. [facility] Past Medical History Medical History Anxiety Bipolar disorder Depression Hypertension Opioid abuse Surgical History Surgical History History of hysterectomy History of tubal ligation Family History Family History Mother Atrial fibrillation Social History Social History Social History: Surrogate medical decision maker: Maria L Cuevas, mother. Code status: Full code. Smoking status: Never smoker Alcohol intake: never Substance use: former Substance use type: heroin, opiates, painkillers and IV drugs Other substance usage details: fentanyl Last use: 06/29/22 Lack of Transportation: No Lack of Food: Never True Current Housing: I Have Housing Concerned About Future Housing: No Difficulty Paying Gas/Electric Bills: No Difficulty Paying for Meds: No Currently Unemployed: No Education: Associate Degree Difficulty w/ Childcare or Family Care: No Additional living arrangements comments: Lives in [place]. with 3 children. Spiritual care concerns: No Meds Home Medications and Allergies Home Medications Medication Instructions Recorded Confirmed Type methadone 190 mg PO DAILY 02/03/21 06/30/22 History blood pressure monitor (Blood #1 ea 02/04/21 06/30/22 Rx Pressure Kit) famotidine 20 mg tablet (Pepcid) 20 mg PO BID PRN Stomach Upset 06/30/22 06/30/22 History Allergies Allergy/AdvReac Type Severity Re
--- NOTE | 2022-06-30 16:07 | ADMGEN ---
This patient, Gely Allen, was admitted to IMU Room 204-01 on 06/30/22 at 1420. Patient/family oriented to hospital policies and general routines including ID bracelet, bed and alarms, visiting hours, pain management, procedures, bathroom and other care routines, personal items, smoking policy, room service/diet, and visiting hours. Information on how to activate the Rapid Response Team has been discussed. Patient/Family are encouraged to report perceived risks to care and to ask questions if they do not understand what they are told or what they should do.
--- NOTE | 2022-06-30 17:05 | PM.CNCAR ---
Assessment and Plan Assessment and plan (1) Wide-complex tachycardia: Code(s): R00.0 - Tachycardia, unspecified Status: Acute Assessment and Plan: The ER rhythm strip appears to be torsades. Rhythm is concerning for torsades but had minimum is an unstable wide complex tachycardic rhythm. I ordered a stat echocardiogram. I was present during at the echo and there is wall motion abnormalities in anterior septum apical septum apex. QTC is normal but patient does use methadone as well as fentanyl at this point. Patient has received IV magnesium. Will replace potassium with additional 40 mEq of potassium chloride p.o. x1. I have talked to Dr. Nova and plan given wide complex tachycardia (unstable rhythm), chest pain/tightness, acute dyspnea and elevated troponins, the plan will be to proceed to a coronary angiogram to rule out underlying CAD. Other possibilities include stress-induced cardiomyopathy, coronary spasm versus other (2) Acute dyspnea: Code(s): R06.00 - Dyspnea, unspecified Status: Acute Assessment and Plan: Possibly related to underlying CAD. Echo ordered (3) Elevated troponin: Code(s): R77.8 - Other specified abnormalities of plasma proteins Status: Acute Assessment and Plan: 325 mg p.o. aspirin be given if not already provided than 81 mg daily. (4) Intravenous drug abuse: Code(s): F19.10 - Other psychoactive substance abuse, uncomplicated Status: Acute Assessment and Plan: Social work to aid with support regarding her IV drug use (5) Anxiety: Code(s): F41.9 - Anxiety disorder, unspecified Status: Acute (6) Chest pain: Code(s): R07.9 - Chest pain, unspecified Status: Acute Assessment and Plan: Possible ACS. (7) Hypertension, uncontrolled: Code(s): I10 - Essential (primary) hypertension Status: Acute Plan She may need transfer to a tertiary facility depending on the results of the coronary angiogram. History of Present Illness History of Present Illness Consult date/time: 06/30/22 17:05 Requesting physician: Melodie Sher PA-C Consult reason: chest pain Reason For Visit: cp,sob,elevated troponin,sustained vtach,ivda Narrative: Reason for consultation: Chest pain, polymorphic VT IV drug use, shortness of breath Date of service 06/30/2022 Requesting provider: Melodie WATSON History: Patient is a 41-year-old female who has history of IV drug use including heroin and fentanyl. She scan pops. She has reduced her drug use because of use of methadone. She does have a history of high blood pressure also. She has been using fentanyl recently but acutely woke up today at 6:00 a.m. with shortness of breath and her heart pounding. She also has been having some relatively constant chest heaviness. The shortness of breath occurs at rest. Her heart pounding will come and go over. Of seconds to minutes and she feels hot, tingling and lightheaded and then her symptoms will temporarily subside and then come back. She denies any syncope, paroxysmal nocturnal dyspnea, orthopnea, edema. She came to the ER where she had an episode of sustained wide complex tachycardia appearing to be polymorphic ventricular tachycardia. She did spontaneously convert. She did not lose consciousness but was presyncopal. Review of Systems Review of Systems: All systems reviewed & are unremarkable except as noted in HPI and below Constitutional: Constitutional: Denies body ache(s) Eyes: Eyes: Denies blurry vision ENT: Reports Normal hearing present Cardiovascular: Cardiovascular: Reports chest pain, Reports lightheadedness and Reports palpitations Respiratory: Respiratory: Reports dyspnea Gastrointestinal: Gastrointestinal: Denies abdominal pain Genitourinary: Genitourinary: Denies hematuria Musculoskeletal: Musculoskeletal: Denies back pain Integumentary/Breasts: Skin/Breast: Reports dry s
--- NOTE | 2022-06-30 17:27 | ECG_ITS ---
Measurements Intervals [place] Rate: 111 P: 32 [place]: 148 QRS: -8 QRSD: 105 T: 42 QT: 333 QTc: 453 Interpretive Statements SINUS TACHYCARDIA NONSPECIFIC ST AND T WAVE ABNORMALITY COMPARED TO ECG 06/30/2022 11:28:57 SINUS TACHYCARDIA NOW PRESENT Electronically Signed On 07-01-2022 10:34:52 CDT by Kylie Nova M.D.
--- NOTE | 2022-06-30 17:31 | ECG_ITS ---
Measurements Intervals [place] Rate: 90 P: 68 WV: 219 QRS: 2 QRSD: 102 T: -1 QT: 345 QTc: 424 Interpretive Statements SINUS RHYTHM WITH FIRST DEGREE AV BLOCK NONSPECIFIC ST & T-WAVE ABNORMALITY aBNORMAL ECG COMPARED TO ECG 06/30/2022 10:16:24 NO SIGNIFICANT CHANGES Electronically Signed On 06-30-2022 17:57:00 CDT by Ronny Barrientos M.D.
[2022-06-30] MEDS: ASPIRIN 81 MG CHEWABLE TABLET 324 MG PO (17:58)
[2022-06-30] MEDS: POTASSIUM CHLORIDE 20 MEQ TABLET 40 MEQ PO (17:58)
[2022-06-30 18:00] LABS: CRP 1.3 mg/dL (<1.0); Creatine Kinase 61 U/L (30-135)
[2022-06-30 18:02] LABS: Lactic Acid Reflex 3.7 mmol/L (0.7-2.0)
[2022-06-30 18:11] LABS: Hemoglobin A1C 5.7 % (<5.7)
[2022-06-30 18:18] LABS: Troponin I 0.406 ng/mL (0.000-0.034)
--- NOTE | 2022-06-30 18:20 | WPDMODSED ---
Moderate Sedation Note-Pt Data Patient Data Diagnosis: Torsades, ACS Present Complaint: Torsades, ACS Procedure to be performed/Plan: Coronary angiography, LHC, +/- PCI Allergies Allergy/AdvReac Type Severity Reaction Status Date / Time amoxicillin Allergy Mild Rash Verified 06/30/22 10:24 sumatriptan Allergy Mild ANAPHALAXIS, Verified 06/30/22 10:24 WHEEZING Home Medications Medication Instructions Recorded Confirmed Type methadone 190 mg PO DAILY 02/03/21 06/30/22 History blood pressure monitor (Blood #1 ea 02/04/21 06/30/22 Rx Pressure Kit) famotidine 20 mg tablet (Pepcid) 20 mg PO BID PRN Stomach Upset 06/30/22 06/30/22 History Current Medications: Active Medications Acetaminophen (Acetaminophen 325 Mg Tablet) 650 mg PO Q6H PRN PRN Reason: Mild Pain (1-3) or Fever Enoxaparin Sodium (Enoxaparin 80 Mg/0.8 Ml Syringe) 75 mg SUB-Q Q12HR KENTRELL Imipenem/Cilastatin Sodium 1, (000 mg/ Sodium Chloride) 250 mls @ 375 mls/hr IVPB Q6HR KENTRELL Last Admin: 06/30/22 17:58 Dose: 375 mls/hr Perflutren Lipid Microsphere (Perflutren Lipid Microspheres 1.5 Ml Vial Diluted To 10 Ml Total Volume) 0 ml IV PUSH ONCE PRN; Protocol PRN Reason: adequate visualization Stop: 07/02/22 17:01 Sedation/Anesthesia: No previous sedation/anesthesia problems (including family history). [facility] Past Medical History Medical History Anxiety Bipolar disorder Depression Hypertension Opioid abuse Surgical History Surgical History History of hysterectomy History of tubal ligation Family History Family History Mother Atrial fibrillation Social History Social History Social History: The patient stated that she is and she has 3 children. She stated that she goes to the methadone clinic and receives methadone every day. She denies any alcohol marijuana or illicit drugs. 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 She does not have a durable power assistant city attorney for healthcare. Code status full code Smoking status: Never smoker Alcohol intake: never Substance use: former Substance use type: heroin, opiates, painkillers and IV drugs Other substance usage details: fentanyl Last use: 06/29/22 Lack of Transportation: No Lack of Food: Never True Current Housing: I Have Housing Concerned About Future Housing: No Difficulty Paying Gas/Electric Bills: No Difficulty Paying for Meds: No Currently Unemployed: No Education: Associate Degree Difficulty w/ Childcare or Family Care: No Spiritual care concerns: No Mod Sed Physical Exam Physical Exam Pre Procedural Exam: Normal: Appearance, Lungs, Heart Rate, Heart Rhythm, Neuro Exam, Abdomen, Extremities and Skin Hours since solid foods: 5 Hours since liquid intake: 5 Mallampati Classification: class III Internal Medicine - PN: Obj Da Vital Signs Vital Signs: Vital Signs - 24 hr 06/30/22 10:13 06/30/22 10:21 06/30/22 10:41 Temperature Pulse Rate 107 H Respiratory Rate 15 Blood Pressure 145/92 H 155/100 H Pulse Oximetry 100 100 Oxygen Delivery Room Air Room Air 06/30/22 10:42 06/30/22 10:44 06/30/22 11:50 Temperature Pulse Rate 95 Respiratory Rate 15 Blood Pressure 166/86 H 158/83 H 154/92 H Pulse Oximetry 100 Oxygen Delivery 06/30/22 12:47 06/30/22 13:38 06/30/22 13:41 Temperature Pulse Rate 106 H 116 H 114 H Respiratory Rate 13 14 16 Blood Pressure 166/105 H 154/91 H 154/91 H Pulse Oximetry 100 100 100 Oxygen Delivery 06/30/22 13:44 06/30/22 16:00 06/30/22 14:20 Temperature 37.2 C Pulse Rate 108 H Respiratory Rate 18 Blood Pressure 152/98 H Pulse Oximetry 100 Oxygen Delivery
--- NOTE | 2022-06-30 18:22 | WPDCARDPROC ---
Cardiac Cath Procedure Note Date of procedure:: 06/30/22 Performing physician:: CATHETERIZATION LABORATORY REPORT Procedure Date: 06/30/2022 Willow Analyst: Kylie Nova M.D., [facility]? Referring Physician: John Barrientos M.D. ? Procedure Start Time: 18:39 Procedure End Time: 19:05 Total Procedure Time: 26 minutes Pre-op Diagnosis: Torsades / Acute Coronary Syndrome Post-op Diagnosis: Non-obstructive coronary arteries Elevated left ventricular end-diastolic pressure of 30mmHg Takotsubo cardiomyopathy Ventricular tachycardia - monomorphic and polymorphic VT s/p 4 shocks while on tin can laborer table Procedure(s): Ultrasound-guided access of the right common femoral artery and the right femoral vein Coronary angiography Left heart cath Left ventricular angiogram Angioseal closure of the right common femoral artery Venous sheath sutured in place Access Site: Right common femoral artery (right radial artery not pursued due to concern for possible cellulitis in RUE) Right femoral vein Brief History and Clinical Indications: Patient is a 41-year-old female with a history of IV drug use who is referred for urgent cardiac cath for Torsades / acute coronary syndrome. All risks, benefits and alternatives to left heart catheterization with or without percutaneous coronary intervention was discussed at length with the patient. Risk of complications including but not limited to bleeding, infection, arrhythmia, stroke, worsening kidney function, blood loss, groin hematoma, limb loss, emergency coronary artery bypass grafting, and even were discussed with the patient and all questions were answered. The patient understood and wished to proceed. Time out called, patient name, date of , medical record number, allergies, procedure performed, identify Willow Analyst, patient and staff member concurred with accurate data, procedure carried on. Findings: LEFT HEART CATHETERIZATION FINDINGS: 1. Left main: Large caliber vessel. The left main coronary artery is widely patent without any significant obstructive disease. 2. Left anterior descending: Large caliber vessel. The LAD and the diagonal branches have mild luminal irregularities without any significant obstructive angiographic disease. 3. Left circumflex: Large caliber vessel. The left circumflex artery and the main marginal branches have mild luminal irregularities without any significant obstructive angiographic disease. The left circumflex is co-dominant 4. Right coronary artery: Large caliber vessel. The RCA has mild luminal irregularities without any significant obstructive angiographic disease. The RCA is co-dominant vessel. 5. Left ventricle: A. End-diastolic pressure 30mmHg. B. LV gram: Left ventricular wall motion consistent with a Takotsubo pattern. C. No significant gradient across aortic valve on catheter pullback. Description of Procedure: Informed consent signed and placed in the chart. Patient transferred to tin can laborer room. Prepped and draped in usual sterile fashion. 2% lidocaine in right groin area. Micropuncture needle used to access right common femoral artery with Seldinger technique under fluoroscopic and ultrasound guidance. J wire advanced, micropuncture cannula placed. Right iliofemoral angiogram performed, access confirmed and micropuncture cannula exchanged for 6-FR sheath. Micropuncture needle used to access right femoral vein under ultrasound guidance. J wire advanced, micropuncture cannula placed. 4F sheath placed in right femoral vein. 5F FL 4 diagnostic catheter engaged Left Main Coronary Artery. 5F FR 4 diagnostic catheter engaged Right Coronary Artery. Multiple orthogonal angiogram obtained and reviewed 5F Pigtail diagnostic catheter crossed aortic valve to obtain LVEDP, LV angiogram deferred. Hemostasis was achieved by 6F Angioseal. Venous sheath sutured in place. Throughout the whole procedure, patient intermittently went into monomorphic and p
[2022-06-30 18:42] LABS: HIV 1/2 Ab P24 Ag Result Negative (Negative)
[2022-06-30 18:59] LABS: Hepatitis B Surface Antigen Negative (Negative)
[2022-06-30 19:04] LABS: HAV RESULT Negative (Negative); Hepatitis B Core IgM Result Negative (Negative)
[2022-06-30 19:16] LABS: Hepatitis C Virus Antibody Negative (Negative)
[2022-06-30] MEDS: MAGNESIUM SULF 2 GM/WATER 50ML 2 GM/50 ML BAG 50 GM (20:17)
[2022-06-30 20:36] LABS: Reflex Lactic Acid Yes or No Add Lactic
[2022-06-30] MEDS: MORPHINE SULFATE (*CRX) 2 MG/ML INJ IV PUSH (23:17)
[2022-07-01] VITALS (60 sets, daily range): BP systolic 124–220; BP diastolic 72–155; PULSE 99–139; RESP 13–31; TEMP 36.9–37.9; O2SAT 91–100
[2022-07-01] MEDS: LORazepam INJ (*CRX) 2 MG/ML VIAL 1 MG IV PUSH ×4 (00:15→13:26)
[2022-07-01 04:50] LABS: Hematocrit 39.6 % (37.0-47.0); Hemoglobin 13.2 g/dL (12.0-15.0); Mean Corpuscular HGB Conc 33.3 g/dl (32-36); Mean Corpuscular Hemoglobin 28.1 pg (26-34); Mean Corpuscular Volume 84.3 fl (80-100); Mean Platelet Volume 10.5 fl (7.4-10.4); Platelet Count Result 368 k/mm3 (150-375); Red Cell Distribution Width 13.1 % (11.5-14.5); White Blood Count 18.9 K/mm3 (4.5-10.0)
[2022-07-01 05:15] LABS: Anion Gap 12 mmol/L (8-16); Blood Urea Nitrogen 11 mg/dL (7-17); Calcium 8.6 mg/dL (8.4-10.2); Carbon Dioxide 25 mmol/L (22-30); Chloride 103 mmol/L (98-107); Estimated CRCL calculation 67 ml/min; Estimated Glomerular Filt Rate > 60; Glucose 139 mg/dL (65-110); Lactic Acid 1.3 mmol/L (0.7-2.0); Magnesium 2.7 mg/dL (1.6-2.3); Potassium 3.2 mmol/L (3.4-5.0); Sodium 140 mmol/L (137-145)
[2022-07-01 05:16] LABS: Anion Gap 13 mmol/L (8-16); Blood Urea Nitrogen 11 mg/dL (7-17); Calcium 8.5 mg/dL (8.4-10.2); Carbon Dioxide 24 mmol/L (22-30); Chloride 103 mmol/L (98-107); Estimated CRCL calculation 67 ml/min; Estimated Glomerular Filt Rate > 60; Glucose 138 mg/dL (65-110); Magnesium 2.7 mg/dL (1.6-2.3); Potassium 3.2 mmol/L (3.4-5.0); Sodium 140 mmol/L (137-145)
[2022-07-01 06:23] LABS: Glucose Point of Care 117 mg/dl (65-105)
--- NOTE | 2022-07-01 07:17 | PC.NURSE ---
EKG completed in ER on June 30, 2022 at 1126
[2022-07-01] MEDS: KCL 40 MEQ/WATER 100 ML 100 ML 25 ML IVPB (08:47)
[2022-07-01] MEDS: ENOXAPARIN 40 MG/0.4 ML SYRINGE SUB-Q (08:49)
[2022-07-01] MEDS: SODIUM CHLORIDE 0.9% IV 1,000 ML 75 ML IV CONT (09:35)
--- NOTE | 2022-07-01 10:42 | PM.PNCARD ---
Progress Note: A&P Assessment and Plan (1) Wide-complex tachycardia: Code(s): R00.0 - Tachycardia, unspecified Status: Acute Assessment and Plan: Wide complex tachycardia. Some strips appear to be torsades and other strips appear to be more monomorphic in etiology.? Methadone as cause or simple stress induced cardiomyopathy. Regardless she is more stable at this point. Awaiting transfer to [facility] for further evaluation including EP. Will reduce her lidocaine drip to 3 mg / minute (2) Acute dyspnea: Code(s): R06.00 - Dyspnea, unspecified Status: Acute Assessment and Plan: Possibly related to underlying CAD. Preserved EF but wall motion abnormalities are noted (3) Elevated troponin: Code(s): R77.8 - Other specified abnormalities of plasma proteins Status: Acute Assessment and Plan: Continue aspirin 81 mg p.o. daily (4) Intravenous drug abuse: Code(s): F19.10 - Other psychoactive substance abuse, uncomplicated Status: Acute Assessment and Plan: Social work to aid with support regarding her IV drug use (5) Anxiety: Code(s): F41.9 - Anxiety disorder, unspecified Status: Acute (6) Chest pain: Code(s): R07.9 - Chest pain, unspecified Status: Acute Assessment and Plan: Possible ACS. (7) Hypertension, uncontrolled: Code(s): I10 - Essential (primary) hypertension Status: Acute Assessment and Plan: Will add losartan 25 mg p.o. daily 1st dose now Subjective Date/time seen: 07/01/22 10:42 Interval history: 41-year-old with presyncope, IV drug use, wide complex tachycardia Date of service 07/01/2022: Status post coronary angiogram is detailed below. She did require multiple cardioversions yesterday but nothing since yesterday evening. She is tachycardic but overall feels better. She is having some hallucinations by denies any chest pain, shortness of breath, syncope, presyncope Review of Systems Review of Systems: All systems reviewed & are unremarkable except as noted in HPI and below Constitutional: Constitutional: Denies body ache(s), Reports excessive sweating and Reports headache(s) Eyes: Eyes: Denies blurry vision ENT: Reports Normal hearing present and Reports headache(s) Cardiovascular: Cardiovascular: Reports chest pain, Reports lightheadedness, Reports palpitations and Reports dyspnea Respiratory: Respiratory: Reports dyspnea Gastrointestinal: Gastrointestinal: Denies abdominal pain Genitourinary: Genitourinary: Denies hematuria Musculoskeletal: Musculoskeletal: Denies back pain Integumentary/Breasts: Skin/Breast: Reports dry skin Neurologic: Reports Normal hearing present and Reports headache(s) Psychiatric: Psychiatric: Reports anxiety Endocrine: Endocrine: Reports excessive sweating and Reports palpitations Hematologic/Lymphatic: Hematologic/Lymphatic: Denies easy bleeding Allergic/Immunologic: Allergic/Immunologic: Denies GI upset with certain foods Exam Narrative: Appears stated age Const: General: uncomfortable HENMT: Face/Nose/Sinus: Normal nares present Mouth: Yes moist mucous membranes Eyes: Sclera: sclerae normal EOM: EOMs intact bilaterally Neck: Neck: supple Thyroid: thyroid normal Carotids: no bruits Chest: Other: No reproducible chest wall pain to palpate Resp: Effort & Inspection: normal respiratory effort Auscultation: clear to auscultation bilaterally Cardio: Rate: tachycardic Rhythm: regular rhythm Other: No obvious murmur GI: Inspection: non-distended Auscultation: normal bowel sounds Skin: General skin exam: normal color and wounds noted Wounds: wounds noted Other: Evidence of skin popping noted Neuro: Cranial nerves: Yes Normal hearing present Speech: normal speech Sensory Exam: normal sensation Extrem: General: normal to inspection and no edema Other: Right groin femoral vein line is still in plac
[2022-07-01] MEDS: LIDOCAINE HCL 1% PF INJ 5 ML VIAL INFILTRATE (11:20)
--- NOTE | 2022-07-01 11:33 | WPDCNINT ---
Assessment and Plan Assessment and plan (1) Wide-complex tachycardia: Code(s): R00.0 - Tachycardia, unspecified Status: Acute Assessment and Plan: Wide complex tachycardia likely related to methadone, fentanyl or other drugs. -cardiology following the patient -patient currently on lidocaine infusion and more stable -not required a shock since 8:00 p.m. on 06/30/2022 -patient has been accepted to [facility] for evaluation by mail processing associate, waiting for a bed (2) Elevated troponin: Code(s): R77.8 - Other specified abnormalities of plasma proteins Status: Acute Assessment and Plan: Elevated troponin with chest pain hand and white complex tachycardia, patient was [facility] where she had an angiogram that showed takotsubo cardiomyopathy, nonobstructive coronary arteries, elevated LVEDP and was given Lasix -cardiology following the patient -continue aspirin (3) Intravenous drug abuse: Code(s): F19.10 - Other psychoactive substance abuse, uncomplicated Status: Acute Assessment and Plan: Patient is on methadone and goes to methadone clinic in [place] white admits to skin popping fentanyl -methadone currently on hold due to concerns of prolonged QT and polymorphic ventricular tachycardia -will monitor for withdrawal symptoms (4) Hypertension, uncontrolled: Code(s): I10 - Essential (primary) hypertension Status: Acute Assessment and Plan: Patient started on losartan (5) Cellulitis of left upper arm: Code(s): L03.114 - Cellulitis of left upper limb Status: Acute Assessment and Plan: Right upper extremity cellulitis, likely leads from skin popping -continue vancomycin and imipenem -cultures have been obtained and will deescalate Plan DVT prophylaxis: Lovenox SQ Stress ulcer prophylaxis: Not indicated Nutrition: NPO except meds Code Status: Full code Critical Care Time Spent: 51 minutes Due to a high probability of clinically significant, life threatening deterioration, the patient required my highest level of preparedness to intervene emergently and I personally spent this critical care time directly and personally managing the patient. This critical care time included obtaining a history; examining the patient; pulse oximetry; ordering and review of studies; arranging urgent treatment with development of a management plan; evaluation of patient's response to treatment; frequent reassessment; and discussions with other providers. It was exclusive of separately billable procedures and treating other patients and teaching time. Please see Assessment and Plan section and the rest of the note for further information on patient assessment and treatment This dictation may have been done utilizing a voice recognition system. Attempts have been made to correct errors. However, there may be uncorrected grammatical, spelling, and recognitions errors present. Optical Laboratory Mechanic Consult Note Consult date: 07/01/22 Reason for consult: Chest pain, polymorphic V-tach, IV drug use, shortness of breath HPI: Gely Allen is a 41 year old female with past medical history of opiate drug use, on methadone, history of anxiety, depression, essential hypertension presented the ED. Patient has been recovering addict and is on methadone. She did use fentanyl recently and on the day of admission she woke up with complains of chest heaviness and shortness of breath along with palpitations. She did feel lightheaded. In the ER she had an episode sustained wide complex ventricular tachycardia. She was admitted to IMU where she had another episode of wide complex ventricular tachycardia thought to be torsades and received a shock, patient was taken to [facility] where she was found to Takotsubo cardiomyopathy, nonobstructive coronary arteries, elevated LVEDP 30 mmHg and was given Lasix, she had ventricular tachycardia, more more amorphic and polymor
[2022-07-01] MEDS: LOSARTAN POTASSIUM 25 MG TABLET PO (12:08)
[2022-07-01] MEDS: POTASSIUM CHLORIDE 20 MEQ PACKET (FOR LIQUID) 40 MEQ PO (12:10)
[2022-07-01] MEDS: ASPIRIN 81 MG ENTERIC TABLET PO (12:10)
[2022-07-01] MEDS: ACETAMINOPHEN 325 MG TABLET 650 MG PO (13:26)
[2022-07-01] MEDS: HYDROcodone/acetaminophen (*CRX) 5-325 MG TABLET 1 TAB PO (13:26)
[2022-07-01] MEDS: hydrALAZINE HCL 20 MG/ML VIAL 10 MG IV PUSH (13:28)
[2022-07-01] MEDS: CENTRAL LINE FLUSH 10 ML IV PUSH (13:28)
--- NOTE | 2022-07-01 16:05 | PM.IMPN ---
Progress Note: A&P Assessment and Plan (1) Ventricular tachycardia: Code(s): I47.20 - Ventricular tachycardia, unspecified Status: Acute Assessment and Plan: She has intermittent wide complex tachycardia is consistent with polymorphic ventricular tachycardia. She has been on methadone which can cause QT prolongations which may very well be what is precipitating the torsades [place]. However she has also been on fentanyl and/or other drugs. She has thus far been given potassium, magnesium, amiodarone, and she is now on a lidocaine drip. [facility] system contacted to initiate transfer for EP consult. Awaiting bed placement No shock required since 8:00 p.m. on 06/30/2022 (2) Chest pain: Code(s): R07.9 - Chest pain, unspecified Status: Acute Assessment and Plan: Related to above. Clean coronaries noted on catheterization 06/30/2022 findings of taco soup 0 cardiomyopathy (3) Elevated troponin: Code(s): R77.8 - Other specified abnormalities of plasma proteins Status: Acute Assessment and Plan: Related to above. Trend to peak. (4) Thrombosis of right cephalic vein: Code(s): I82.611 - Acute embolism and thrombosis of superficial veins of right upper extremity Status: Acute Assessment and Plan: Right upper extremity soft tissue ultrasound shows evidence of possible thrombosis/occlusion of the right cephalic vein. Likely related to skin popping. Warm compresses ordered. (5) Intravenous drug abuse: Code(s): F19.10 - Other psychoactive substance abuse, uncomplicated Status: Acute Assessment and Plan: She goes to the methadone clinic in [place] daily but admits to skin popping fentanyl last night. Methadone on hold as there are concerns that may be the etiology of the slightly prolonged QT and polymorphic ventricular tachycardia. Monitor closely for withdrawal symptoms. (6) Cellulitis of left upper arm: Code(s): L03.114 - Cellulitis of left upper limb Status: Acute Assessment and Plan: Continue empiric imipenem and vancomycin for right upper extremity cellulitis. She skin pops and is at risk for MRSA. Imipenem ordered for broader coverage and to cover anaerobes. Subjective Date/time seen: 07/01/22 16:05 Interval history: Chart reviewed. Feels okay. Denies any chest pain or shortness of breath. Required multiple cardioversion yesterday none overnight. Reports she is on methadone for her opiate dependence however she is still using fentanyl Review of Systems Review of Systems: All systems reviewed & are unremarkable except as noted in HPI and below Exam Narrative: General: Moderately ill-appearing female supine in bed. HEENT: Normocephalic, atraumatic. PERRL, EOMI. Sclera anicteric. Tacky mucous membranes. Neck: Supple. No JVD or lymphadenopathy. Respiratory: Lungs are clear to auscultation bilaterally. Cardiovascular: Tachycardic with normal S1-S2. No obvious murmur. Gastrointestinal: Abdomen is soft, nontender, and nondistended with positive bowel sounds. Skin: Warm and dry. Significant scarring over both upper arms from longstanding history of skin popping. The left upper arm is a bit swollen, red, and indurated. It is a bit tender to palpation. Some scabbed over areas. Extremities: No cyanosis, clubbing, or edema. Radial and pedal pulses intact. Neurological: Alert. Cranial nerves 2-12 are grossly intact. No gross focal deficits to casual conversation. Psychiatric: Cooperative. Appropriate mood. Flat affect. Objective Data Vital Signs Vital Signs: Vital Signs - 24 hr 06/30/22 16:33 06/30/22 16:34 06/30/22 16:33 Temperature Pulse Rate Respiratory Rate Blood Pressure 154/90 H 160/81 H 150/85 H Pulse Oximetry Oxygen Delivery 06/30/22 16:50 06/30/22 18:00 06/30/22 20:07 Temperature Pulse Rate 74 113 H 98 Respiratory Rate Blood Pressure 168/62 H 154/94 H Pulse
--- NOTE | 2022-07-01 18:01 | PM.TDS ---
Transfer Discharge Sum: Prov Provider Date of admission: 07/01/22 10:04 Primary care physician: Ravi Flores, PA Admitting clinician: Peggy Quinn MD Consults: 06/30/22 13:45 Consult to Physician Routine Comment: Consulting Provider: Ronny Barrientos Reason for consultation: CP, SOB, elev trop, sustained VT Has provider been notified: Yes DS: Admitting Diagnosis Discharge Date 07/01/2021 Admitting Diagnosis White complex tachycardia DS: Discharge Diagnosis Discharge Diagnosis (1) Ventricular tachycardia: Code(s): I47.20 - Ventricular tachycardia, unspecified Status: Acute (2) Chest pain: Code(s): R07.9 - Chest pain, unspecified Status: Acute (3) Elevated troponin: Code(s): R77.8 - Other specified abnormalities of plasma proteins Status: Acute (4) Thrombosis of right cephalic vein: Code(s): I82.611 - Acute embolism and thrombosis of superficial veins of right upper extremity Status: Acute (5) Intravenous drug abuse: Code(s): F19.10 - Other psychoactive substance abuse, uncomplicated Status: Acute (6) Cellulitis of left upper arm: Code(s): L03.114 - Cellulitis of left upper limb Status: Acute Transfer Discharge Sum: Med Medications Active and Home Medications: Home Medications methadone 190 mg PO DAILY 02/03/21 [History Confirmed 06/30/22] blood pressure monitor (Blood Pressure Kit) #1 ea 02/04/21 [Rx Confirmed 06/30/22] famotidine 20 mg tablet (Pepcid) 20 mg PO BID PRN Stomach Upset 06/30/22 [History Confirmed 06/30/22] Active Medications Acetaminophen (Acetaminophen 325 Mg Tablet) 650 mg PO Q6H PRN PRN Reason: Mild Pain (1-3) or Fever Last Admin: 07/01/22 13:26 Dose: 650 mg Hydrocodone Bitart/Acetaminophen (Hydrocodone/Acetaminophen (*Crx) 5-325 Mg Tablet) 1 tab PO Q6H PRN PRN Reason: Pain Rated 4-6 Last Admin: 07/01/22 13:26 Dose: 1 tab Amlodipine Besylate (Amlodipine Besylate 5 Mg Tablet) 10 mg PO QAM KENTRELL Aspirin (Aspirin 81 Mg Enteric Tablet) 81 mg PO QAM KENTRELL Last Admin: 07/01/22 12:10 Dose: 81 mg Enalaprilat (Enalaprilat 1.25 Mg/Ml Vial) 1.25 mg IV PUSH Q6HR PRN PRN Reason: Hypertension Enoxaparin Sodium (Enoxaparin 40 Mg/0.4 Ml Syringe) 40 mg SUB-Q DAILY [facility] Last Admin: 07/01/22 08:49 Dose: 40 mg Hydralazine HCl (Hydralazine Hcl 20 Mg/Ml Vial) 10 mg IV PUSH Q4HR PRN PRN Reason: Blood Pressure - High Last Admin: 07/01/22 13:28 Dose: 10 mg Lidocaine HCl/Dextrose (Lidocaine Hcl In D5w 4mg/Ml) 2 gm in 500 mls @ 45 mls/hr IV CONT .Q11H7M [facility] Last Infusion: 07/01/22 15:49 Dose: 3 mg/min, 45 mls/hr Vancomycin HCl (Vancomycin 1,500 Mg/D5w 500 Ml) 1,500 mg in 500 mls @ 250 mls/hr IVPB Q18H [facility] Last Admin: 07/01/22 10:25 Dose: 250 mls/hr Sodium Chloride (Normal Saline Iv) 1,000 mls @ 75 mls/hr IV CONT .I53H98H [facility] Last Admin: 07/01/22 09:35 Dose: 75 mls/hr Imipenem/Cilastatin Sodium (Primaxin 500 Mg/Ns 100 Ml) 500 mg in 100 mls @ 300 mls/hr IVPB Q6H [facility] Lorazepam (Lorazepam Inj (*Crx) 2 Mg/Ml Vial) 1 mg IV PUSH Q4H PRN PRN Reason: Anxiety Losartan Potassium (Losartan Potassium 25 Mg Tablet) 25 mg PO DAILY [facility] Last Admin: 07/01/22 12:08 Dose: 25 mg Morphine Sulfate (Morphine Sulfate (*Crx) 2 Mg/Ml Inj) 2 mg IV PUSH Q4H PRN PRN Reason: Pain Rated 7-10 Last Admin: 06/30/22 23:17 Dose: 2 mg Perflutren Lipid Microsphere (Perflutren Lipid Microspheres 1.5 Ml Vial Diluted To 10 Ml Total Volume) 0 ml IV PUSH ONCE PRN; Protocol PRN Reason: adequate visualization Stop: 07/02/22 17:01 Sodium Chloride (Central Line Flush) 10 ml IV PUSH Q8HR [facility] Last Admin: 07/01/22 13:28 Dose: 10 ml Sodium Chloride (Central Line Flush) 10 ml IV PUSH PRN PRN PRN Reason: with TPN bag changes Sodium Chloride (Central Line Flush) 20 ml IV PUSH PRN PRN PRN Reason: after blood draws Transfer Discharge Sum: Hosp Hospital Course Hospital course: Gely Hoyos
--- NOTE | 2022-07-01 18:37 | PC.NURSE ---
Patient bed available at [facility] ICU room 13 , report called to Jazmin DEGROOT. Called Maria L, patients mother, and updated her on patient condition and transfer information
== END 2022-07-01 19:30 | disposition short-term general hospital (02) | DRG 192 ==
LOC: ANHED 13:08 → ANHIMU 13:23 → ANHICU 20:08
PROVIDERS: Internal Medicine; Physician Assistant; Admitting Provider Family Medicine; Emergency Provider Physician Assistant; PCP Physician Assistant; Visit Provider Internal Medicine
PROC: 4A023N7 Measurement of Cardiac Sampling and Pressure, Left Heart, Percutaneous Approach (ICD-10-PCS; CPT 93452; principal; 2022-06-30 18:00)
PROC: 4A023N7 Measurement of Cardiac Sampling and Pressure, Left Heart, Percutaneous Approach (ICD-10-PCS; 2022-06-30 18:00)
PROC: 4A023N7 Measurement of Cardiac Sampling and Pressure, Left Heart, Percutaneous Approach (ICD-10-PCS; CPT 36140; 2022-06-30 18:00)
DX: I51.81 Takotsubo syndrome (principal); I47.29 Other ventricular tachycardia; T40.3X5A Adverse effect of methadone, initial encounter; I25.10 Atherosclerotic heart disease of native coronary artery without angina pectoris; I82.611 Acute embolism and thrombosis of superficial veins of right upper extremity; F11.10 Opioid abuse, uncomplicated; F19.10 Other psychoactive substance abuse, uncomplicated; L03.114 Cellulitis of left upper limb; F31.9 Bipolar disorder, unspecified; F41.9 Anxiety disorder, unspecified; I10 Essential (primary) hypertension; Z90.710 Acquired absence of both cervix and uterus
CPT/HCPCS: 36140; 36415; 36569; 70450; 71046; 71275; 76882; 80048; 80053; 80074; 80307; 81001; 82550; 82948; 83036; 83605; 83735; 84484; 85025; 85027; 85380; 85610; 85730; 86140; 86703; 87040; 93005; 93306; 93458; 96361; 96365; 96367; 99285; A9270; C1751; C1760; C1887; C1894; G0269; G0378; G0379; G0432; J0282; J0360; J0743; J1100; J1644; J1650; J1940; J2001; J2060; J2270; J3370; J3475; J3480; J7030; J7040; J7050; Q9967

== ENCOUNTER 2023-02-01 15:59 | Emergency (ER) | payer OTHER, SELFPAY ==
--- NOTE | ~2023-02-01 | XR_ITS ---
EXAMINATION: XR chest 2V DATE: 02/01/2023 16:53 INDICATION: Chest pain and cough TECHNIQUE: PA and lateral views of the chest are obtained. COMPARISON: 06/30/2022 FINDINGS: The lungs are free of acute opacities. No pleural effusion or pneumothorax. The cardiomedia stinal silhouette is normal. The visualized bones and soft tissues are unremarkable. IMPRESSION: 1. No acute cardiopulmonary abnormality. Reviewed, dictated and finalized at location L. LY CHAIN CONSULTANT
[2023-02-01 16:01] VITALS: BP 151/82; PULSE 68; RESP 18; TEMP 36.6; O2SAT 100
--- NOTE | 2023-02-01 16:02 | ECG_ITS ---
Measurements Intervals [place] Rate: 82 P: 15 HI: 163 QRS: 12 QRSD: 93 T: 61 QT: 352 QTc: 412 Interpretive Statements SINUS RHYTHM NONSPECIFIC T-WAVE ABNORMALITY- ANTERIOR LEADS BORDERLINE ECG COMPARED TO ECG 06/30/2022 17:27:47 SINUS RHYTHM NOW PRESENT Electronically Signed On 02-01-2023 16:13:51 PARAPROFESSIONAL INTERPRETER by Sixto Willis D.O.
[2023-02-01 16:44] VITALS: BP 137/87; PULSE 80; RESP 14; O2SAT 97
[2023-02-01 16:46] VITALS: BP 143/75; RESP 16; O2SAT 98
[2023-02-01 16:52] LABS: Basophils Percent Auto 0.3 % (0.2-1.2); Eosinophils Absolute Auto 0.1 K/mm3 (0-0.3); Eosinophils Percent Auto 0.9 % (0-4.4); Hematocrit 35.9 % (37.0-47.0); Hemoglobin 11.2 g/dL (12.0-15.0); Immature Granulocyte Absolute 0.02 K/mm3 (0.00-0.031); Immature Granulocyte Percent A 0.3 % (0-0.5); Lymphocytes Absolute Auto 1.22 K/mm3 (0.9-3.2); Lymphocytes Percent Auto 16.4 % (18.3-44.2); Mean Corpuscular HGB Conc 31.2 g/dl (32-36); Mean Corpuscular Hemoglobin 26.5 pg (26-34); Mean Corpuscular Volume 85.1 fl (80-100); Mean Platelet Volume 10.2 fl (7.4-10.4); Monocytes Absolute Auto 0.3 K/mm3 (0.1-0.6); Neutrophils Absolute Auto 5.8 K/mm3 (1.3-6.7); Neutrophils Percent Auto 78.1 % (45.5-73.1); Platelet Count Result 225 k/mm3 (150-375); Red Blood Count 4.22 M/mm3 (4.2-5.4); Red Cell Distribution Width 13.5 % (11.5-14.5); White Blood Count 7.4 K/mm3 (4.5-10.0)
--- NOTE | 2023-02-01 16:58 | ED.ARRPALP ---
HPI - Arrhythmia/Palpitations General Chief Complaint: Arrhythmia/Palpitations Stated Complaint: heart palpitations/dizzy/SOB Time Seen by Provider: 02/01/23 16:52 History of Present Illness HPI narrative: Pt presents with palpitations today. Pt says her whole body is tinfgling and this is how she felt when she went into torsades. Pt has some chest pressure. Related Data Home Medications Medication Instructions Recorded Confirmed methadone 190 mg PO DAILY 02/03/21 06/30/22 famotidine 20 mg tablet (Pepcid) 20 mg PO BID PRN Stomach Upset 06/30/22 06/30/22 Allergies Allergy/AdvReac Type Severity Reaction Status Date / Time amoxicillin Allergy Mild Rash Verified 02/01/23 16:46 sumatriptan Allergy Mild ANAPHALAXIS, Verified 02/01/23 16:46 WHEEZING Sulfa (Sulfonamide AdvReac Hives Verified 02/01/23 16:46 Antibiotics) Review of Systems Review of Systems: All systems reviewed & are unremarkable except as noted in HPI and below PMFSH Past Medical History Medical History Anxiety Bipolar disorder Depression Hypertension Opioid abuse Surgical History Surgical History History of hysterectomy History of tubal ligation Family History Family History Mother Atrial fibrillation Social History Social History Social History: Surrogate medical decision maker: Maria L Cuevas, mother. Code status: Full code. Smoking status: Never smoker Alcohol intake: never Substance use: former Substance use type: heroin, opiates, painkillers and IV drugs Other substance usage details: fentanyl Last use: 06/29/22 Lack of Transportation: No Lack of Food: Never True Current Housing: I Have Housing Concerned About Future Housing: No Difficulty Paying Gas/Electric Bills: No Difficulty Paying for Meds: No Currently Unemployed: No Education: Associate Degree Difficulty w/ Childcare or Family Care: No Additional living arrangements comments: Lives in [place]. with 3 children. Spiritual care concerns: No Exam Const: General: healthy appearing and no acute distress Nutritional Appearance: well nourished Orientation/consciousness: patient oriented x3 Limitations: no limitations Eyes: EOM: EOMs intact bilaterally Neck: Neck: normal visual inspection, no lymphadenopathy and no meningeal signs Chest: Chest palpation & inspection: normal inspection of the chest Resp: Effort & Inspection: normal respiratory effort Auscultation: clear to auscultation bilaterally Cardio: Rate: regular rate Rhythm: regular rhythm GI: Auscultation: normal bowel sounds Skin: General skin exam: normal color Rashes: no rashes Wounds: wounds noted (skin popping lesions to arms from herion) Neuro: General: patient oriented x3, moves all extremities, no meningeal signs and no focal motor deficits Cranial nerves: Yes Nystagmus not present Speech: normal speech Extrem: General: normal to inspection and no clubbing, cyanosis or edema Psych: Mental Status: mental status grossly normal Affect: normal affect Attitude: cooperative Course Vital Signs Vital signs: Vital Signs Temperature 97.8 F 02/01/23 16:01 Pulse Rate 68 02/01/23 16:01 Respiratory Rate 18 02/01/23 16:01 Blood Pressure 151/82 H 02/01/23 16:01 Pulse Oximetry 100 02/01/23 16:01 Oxygen Delivery Room Air 02/01/23 16:01 Temperature 97.8 F 02/01/23 16:01 Pulse Rate 74 02/01/23 17:30 Respiratory Rate 18 02/01/23 17:30 Blood Pressure 138/74 02/01/23 17:30 Pulse Oximetry 95 02/01/23 17:30 Oxygen Delivery Room Air 02/01/23 16:01 MDM - Arrhythmia/Palpitations Lab Data 02/01/23 16:36 02/01/23 16:36 Labs: Lab Results 11
[2023-02-01 17:08] LABS: Alanine Aminotransferase 19 U/L (6-35); Albumin Level 4.3 g/dL (3.5-5.1); Alkaline Phosphatase 67 U/L (38-126); Anion Gap 5 mmol/L (8-16); Aspartate Amino Transferase 21 U/L (14-36); Bilirubin,Total 0.7 mg/dL (0.2-1.3); Blood Urea Nitrogen 22 mg/dL (7-17); Carbon Dioxide 31 mmol/L (22-30); Chloride 100 mmol/L (98-107); Estimated CRCL calculation 61 ml/min; Estimated Glomerular Filt Rate 54; Glucose 112 mg/dL (65-110); Lipase 42 U/L (23-300); Potassium 3.8 mmol/L (3.4-5.0); Sodium 136 mmol/L (137-145)
[2023-02-01 17:15] LABS: Magnesium 2.1 mg/dL (1.6-2.3); Phosphorus 3.7 mg/dL (2.5-4.5)
[2023-02-01 17:17] LABS: Troponin I < 0.012 ng/mL (0.000-0.034)
[2023-02-01 17:25] LABS: INR 1.1; Prothrombin Time 14.5 Seconds (11.1-14.7)
[2023-02-01 17:26] LABS: Partial Thromboplastin Time 27.8 SECONDS (22.3-36.8)
[2023-02-01 17:30] VITALS: BP 138/74; PULSE 74; RESP 18; O2SAT 95
== END 2023-02-01 17:52 | disposition home or self-care (01) ==
LOC: ANHED 17:51
PROVIDERS: Emergency Provider Emergency Medicine; PCP Physician Assistant
DX: R00.2 Palpitations (principal); I10 Essential (primary) hypertension; F41.9 Anxiety disorder, unspecified; F32.A Depression, unspecified
CPT/HCPCS: 36415; 71046; 80053; 83690; 83735; 84100; 84484; 85025; 85610; 85730; 93005; 99284

== ENCOUNTER 2023-09-03 16:21 | Emergency (ER) | payer OTHER, SELFPAY ==
[2023-09-03] VITALS (9 sets, daily range): BP systolic 136–162; BP diastolic 81–108; PULSE 92–120; RESP 12–18; TEMP 37.2–39.3; O2SAT 96–100
--- NOTE | ~2023-09-03 | XR_ITS ---
EXAMINATION: XR chest 2V 09/03/2023 16:56 INDICATION: Fever PROCEDURE: 2 view chest COMPARISON: 02/01/2023 FINDINGS: The lungs are clear. The cardiomediastinal silhouette is within normal limits. There are no pleural effusions. There is no pneumothorax suspected. IMPRESSION: 1: NO ACUTE CARDIOPULMONARY DISEASE. Reviewed, dictated and finalized at location B.
--- NOTE | ~2023-09-03 | XR_ITS ---
XR humerus LT 09/03/2023 16:59 INDICATION: Multiple skin wounds PROCEDURE: 2 views of the bilateral humerus COMPARISON: No prior studies for comparison. FINDINGS: Fracture, dislocation or subluxation is not identified. There is soft tissue irregularity b ilaterally. No foreign bodies are identified. IMPRESSION: 1: NO ACUTE BONE OR JOINT ABNORMALITY IDENTIFIED. Reviewed, dictated and finalized at location B.
--- NOTE | ~2023-09-03 | XR_ITS ---
XR humerus RT 09/03/2023 17:00 INDICATION: Soft tissue abnormalities. PROCEDURE: 2 views right humerus COMPARISON: No prior studies for comparison. FINDINGS: Fracture, dislocation or subluxation is not identified. There is extensive soft tissue irre gularity along the margin of the humerus. No foreign bodies. No foreign bodies are identified. IMPRESSION: 1: NO ACUTE BONE OR JOINT ABNORMALITY IDENTIFIED. Reviewed, dictated and finalized at location B.
--- NOTE | 2023-09-03 16:28 | ECG_ITS ---
[facility] [address] Test Date: 2023-09-03 Pat Name: Gely Allen Department: Room: Gender: F [place] Layer: : 1980 Requested By: Michael Guerrero Order Number: [id number] Reading MD: Srinivasan Orr M.D. Measurements Intervals [place] Rate: 130 P: 6 [place]: 151 QRS: 5 QRSD: 87 T: 31 QT: 391 QTc: 576 Interpretive Statements SINUS TACHYCARDIA NONSPECIFIC T-WAVE ABNORMALITY ABNORMAL RHYTHM ECG No previous ECG available for comparison Electronically Signed On 09-04-2023 07:47:47 CDT by Srinivasan Orr M.D.
--- NOTE | 2023-09-03 16:29 | ED.ARRPALP ---
HPI - Arrhythmia/Palpitations General Chief Complaint: Arrhythmia/Palpitations <Lauren Cloud MD - Last Filed: 09/05/23 12:10> Stated Complaint: dysnea, palpatations for three hrs <Lauren Cloud MD - Last Filed: 09/05/23 12:10> Time Seen by Provider: 09/03/23 16:27 <Lauren Cloud MD - Last Filed: 09/05/23 12:10> History of Present Illness HPI narrative: Patient is a 42-year-old female with history of opiate use disorder, usually skin pops with fentanyl, here with palpitations and fever. Patient states that she started feeling palpitations and chest fluttering yesterday. They had gone away on their own initially however 3 hours ago they began again. She feels them mainly in the right side of her chest. 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 She does endorse associated fever and chills. She reportedly went to an urgent care approximately 2 weeks ago for wounds on her bilateral arms as well as her middle finger on her left hand and in her nose. She took a 5 day course of keflex along with an unknown topical ointment. She notes that the finger and nose wounds resolved but her arm wounds have been unchanged. She does have pain and drainage in multiple wounds in her bilateral upper extremities for around 1 month. She reportedly skin pops with fentanyl which is the cause of her wounds. 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 <Lauren Cloud MD - Last Filed: 09/05/23 12:10> Related Data Home Medications: Home Medications Medication Instructions Recorded Confirmed methadone 190 mg PO DAILY 02/03/21 06/30/22 famotidine 20 mg tablet (Pepcid) 20 mg PO BID PRN Stomach Upset 06/30/22 06/30/22 <Lauren Cloud MD - Last Filed: 09/05/23 12:10> Allergies/Adverse Reactions: Allergies Allergy/AdvReac Type Severity Reaction Status Date / Time amoxicillin Allergy Mild Rash Verified 02/01/23 16:46 sumatriptan Allergy Mild ANAPHALAXIS, Verified 02/01/23 16:46 WHEEZING Sulfa (Sulfonamide AdvReac Hives Verified 02/01/23 16:46 Antibiotics) <Lauren Cloud MD - Last Filed: 09/05/23 12:10> Review of Systems Review of Systems: All systems reviewed & are unremarkable except as noted in HPI and below <Lauren Cloud MD - Last Filed: 09/05/23 12:10> [facility] Past Medical History Medical History: Medical History Anxiety Bipolar disorder Depression Hypertension Opioid abuse <Lauren Cloud MD - Last Filed: 09/05/23 12:10> Surgical History Surgical History: Surgical History History of hysterectomy History of tubal ligation <Lauren Cloud MD - Last Filed: 09/05/23 12:10> Family History Family History: Family History Mother Atrial fibrillation <Lauren Cloud MD - Last Filed: 09/05/23 12:10> Social History Social History: Social History Social History: Surrogate medical decision maker: Maria L Cuevas, mother. Code status: Full code. Smoking status: Never smoker Alcohol intake: never Substance use: former Substance use type: heroin, opiates, painkillers and IV drugs Other substance usage details: fentanyl Last use: 06/29/22 Lack of Transportation: No Lack of Food: Never True Current Housing: I Have Housing Concerned About Future Housing: No Difficulty Paying Gas/Electric Bills: No Difficulty Paying for Meds: No Currently Unemployed: No Education: Associate Degree Difficulty w/ Childcare or Family Care: No Additional living arrangements comments: Lives in [place]. with 3 children. Spiritual care concerns: No <Lauren Cloud MD - Last Filed: 09/05/23 12:10> Exam Narrative: GENERAL: Ill appearing, tearful HEAD: Normocephalic, atraumatic
[2023-09-03 17:44] LABS: Basophils Percent Auto 0.2 % (0.2-1.2); Eosinophils Percent Auto 0.3 % (0-4.4); Hematocrit 33.3 % (37.0-47.0); Immature Granulocyte Absolute 0.01 K/mm3 (0.00-0.031); Immature Granulocyte Percent A 0.2 % (0-0.5); Lymphocytes Absolute Auto 0.58 K/mm3 (0.9-3.2); Lymphocytes Percent Auto 9.3 % (18.3-44.2); Mean Corpuscular Hemoglobin 27.2 pg (26-34); Mean Corpuscular Volume 82.2 fl (80-100); Mean Platelet Volume 10.4 fl (7.4-10.4); Monocytes Absolute Auto 0.5 K/mm3 (0.1-0.6); Monocytes Percent Auto 7.7 % (2.6-8.5); Neutrophils Absolute Auto 5.1 K/mm3 (1.3-6.7); Neutrophils Percent Auto 82.3 % (45.5-73.1); Platelet Count Result 184 k/mm3 (150-375); Red Blood Count 4.05 M/mm3 (4.2-5.4); Red Cell Distribution Width 14.1 % (11.5-14.5); White Blood Count 6.2 K/mm3 (4.5-10.0)
[2023-09-03] MEDS: ACETAMINOPHEN 500 MG TABLET 1000 MG PO (17:50)
[2023-09-03] MEDS: MAGNESIUM SULF 2 GM/WATER 50ML 2 GM/50 ML BAG IVPB (17:51)
[2023-09-03 17:52] LABS: Lactic Acid Reflex 1.4 mmol/L (0.7-2.0)
[2023-09-03 17:54] LABS: Alanine Aminotransferase 25 U/L (6-35); Albumin Level 4.5 g/dL (3.5-5.1); Alkaline Phosphatase 92 U/L (38-126); Anion Gap 9 mmol/L (4-12); Aspartate Amino Transferase 26 U/L (14-36); Bilirubin,Total 1.4 mg/dL (0.2-1.3); Blood Urea Nitrogen 19 mg/dL (7-17); CRP 8.6 mg/dL (<1.0); Calcium 9.3 mg/dL (8.4-10.2); Carbon Dioxide 24 mmol/L (22-30); Chloride 103 mmol/L (98-107); Creatine Kinase 44 U/L (30-135); Estimated CRCL calculation 55 ml/min; Estimated Glomerular Filt Rate 49; Glucose 94 mg/dL (65-110); Lipase 24 U/L (23-300); Potassium 3.4 mmol/L (3.4-5.0); Sodium 136 mmol/L (137-145)
[2023-09-03 17:56] LABS: INR 1.2; Prothrombin Time 15.8 Seconds (11.1-14.7)
[2023-09-03 17:57] LABS: Partial Thromboplastin Time 32.5 Seconds (22.3-36.8)
[2023-09-03 18:02] LABS: Troponin I < 0.012 ng/mL (0.000-0.034)
[2023-09-03] MEDS: VANCOMYCIN 2,000 MG/NS 500 ML 2,000 MG/500 ML BAG 250 MG IVPB (18:56)
[2023-09-03 20:07] LABS: Troponin I < 0.012 ng/mL (0.000-0.034)
[2023-09-03 20:14] LABS: Appearance Urine Clear (Clear); Bacteria Urine Rare /hpf; Bilirubin Urine Negative (Negative); Blood Urine Negative (Negative); Color Urine Yellow (Yellow); Glucose Urine UA Negative (Negative); Ketones Urine Trace mg/dL (Negative); Leukocyte Esterase Ur Trace LEU/UL (Negative); Nitrate Urine Negative (Negative); Non Pathogenic Casts 0-2; Protein Urine Trace mg/dL (Negative); RBC Urine 0-2 /hpf (0-2); Specific Grav Ur 1.025 (1.001-1.035); Squamous Epithelial Cell Urine Few /hpf (Few); WBC Urine 0-5 /hpf (0-3)
[2023-09-03 20:20] LABS: Add Urine Microscopic? YES
--- NOTE | 2023-09-03 20:27 | PC.NURSE ---
per edp dr. ponce pt to receive 1mg of ativan iv push for nausea. this rn used closed loop communication to confirm route/ dose/ patient/ time/ medication.
[2023-09-03] MEDS: LORazepam INJ (*CRX) 2 MG/ML VIAL 1 MG IV PUSH (20:37)
== END 2023-09-03 21:40 | disposition short-term general hospital (02) ==
PROVIDERS: Emergency Medicine; Emergency Provider Student in an Organized Health Care Education/Training Program; PCP Physician Assistant
DX: L03.114 Cellulitis of left upper limb (principal); L03.113 Cellulitis of right upper limb; A41.9 Sepsis, unspecified organism; F11.10 Opioid abuse, uncomplicated; F41.9 Anxiety disorder, unspecified; F32.A Depression, unspecified; I10 Essential (primary) hypertension
CPT/HCPCS: 36415; 71046; 73060; 80053; 81001; 81025; 82550; 83605; 83690; 83735; 84484; 85025; 85610; 85730; 86140; 87040; 87070; 87147; 87181; 87205; 93005; 96361; 96365; 96366; 96368; 99285; A9270; J2060; J3370; J3475; J7120

== ENCOUNTER 2023-10-05 20:02 | Emergency (ER) | payer OTHER, SELFPAY ==
--- NOTE | ~2023-10-05 | XR_ITS ---
EXAMINATION: XR humerus LT DATE: 10/05/2023 22:24 INDICATION: Left upper arm infection. TECHNIQUE: 2 views of left humerus were obtained. COMPARISON: Left humerus radiograph 09/03/2023 FINDINGS: Bone alignment is normal. No fracture. There is mild acromioclavicular joint osteoarthritis . The glenohumeral joint and elbow joint are normal. No elbow joint effusion. There is irregularity o f the skin. IMPRESSION: 1. No evidence of osteomyelitis. Reviewed, dictated and finalized at location E.
--- NOTE | ~2023-10-05 | XR_ITS ---
EXAMINATION: XR humerus RT DATE: 10/05/2023 22:24 INDICATION: Right upper arm infection. TECHNIQUE: 2 views of right humerus were obtained. COMPARISON: Right humerus radiograph 09/03/2023 FINDINGS: Bone alignment is normal. No fracture. There is mild osteoarthritis of acromioclavicular lg int. Glenohumeral joint and the elbow joint are normal. No elbow joint effusion. There is a large ski n defect of the upper arm. IMPRESSION: 1. No evidence of osteomyelitis. Reviewed, dictated and finalized at location E.
--- NOTE | ~2023-10-05 | XR_ITS ---
EXAMINATION: XR chest 1V portable DATE: 10/05/2023 21:25 INDICATION: Palpitations. TECHNIQUE: A single frontal view of the chest was obtained. COMPARISON: Chest 2 views 09/03/2023, chest CT 06/30/2022 FINDINGS: There is no pneumonia, pleural effusion, or pneumothorax. The heart size is normal. IMPRESSION: 1. No acute cardiopulmonary disease. Reviewed, dictated and finalized at location E.
[2023-10-05 20:04] VITALS: BP 149/82; PULSE 101; RESP 16; TEMP 36.1; O2SAT 99
--- NOTE | 2023-10-05 20:07 | ECG_ITS ---
Test Date: 2023-10-05 20:10:12 Measurements Intervals [place] Rate: 92 P: 1 NH: 158 QRS: 5 QRSD: 95 T: 56 QT: 352 QTc: 435 Interpretive Statements SINUS RHYTHM NONSPECIFIC ST-T WAVE ABNORMALITY- ANTEROLAT/HIGH LAT LEADS BASELINE ARTIFACT- I, II, AVR, AVL BORDERLINE ECG Compared to ECG 09/03/2023 16:31:56 HEART RATE HAS DECREASED Electronically Signed On 10-05-2023 20:24:05 CDT by Sixto Willis D.O.
--- NOTE | 2023-10-05 21:54 | ED.ARRPALP ---
HPI - Arrhythmia/Palpitations General Chief Complaint: Arrhythmia/Palpitations Stated Complaint: SOB, heart palp Time Seen by Provider: 10/05/23 21:22 Source: patient Mode of arrival: ambulatory Limitations: no limitations History of Present Illness HPI narrative: This is a 42-year-old female With PMH of opiate use disorder, skin pops with fentanyl who presents to the ED with chief complaint of palpitations and feeling short of breath. she is worried because she has gone into torsades in the past and this was a similar feeling. she also feels that she is probably in some withdrawal so she has not had fentanyl in 2 days. endorses nausea, vomiting and runny nose. She denies chest pain. reports that she has tried to get off of fentanyl in the past with methadone. She had the episode last year where she went into torsades and it was thought that it was because of methadone. She reports bilateral upper arm wounds are chronic and she is scheduled for wound care follow-up for these. States there is a little more purulence in the right arm but there is no pain. Denies fevers, chills, pain, diarrhea, abdominal pain. Related Data Home Medications Medication Instructions Recorded Confirmed methadone 190 mg PO DAILY 02/03/21 06/30/22 famotidine 20 mg tablet (Pepcid) 20 mg PO BID PRN Stomach Upset 06/30/22 06/30/22 Allergies Allergy/AdvReac Type Severity Reaction Status Date / Time amoxicillin Allergy Mild Rash Verified 02/01/23 16:46 sumatriptan Allergy Mild ANAPHALAXIS, Verified 02/01/23 16:46 WHEEZING Sulfa (Sulfonamide AdvReac Hives Verified 02/01/23 16:46 Antibiotics) Review of Systems Review of Systems: All systems as dictated in HPI [facility] Past Medical History Medical History Anxiety Bipolar disorder Depression Hypertension Opioid abuse Surgical History Surgical History History of hysterectomy History of tubal ligation Family History Family History Mother Atrial fibrillation Social History Social History Social History: Surrogate medical decision maker: Maria L Cuevas, mother. Code status: Full code. Smoking status: Never smoker Alcohol intake: never Substance use: former Substance use type: heroin, opiates, painkillers and IV drugs Other substance usage details: fentanyl Last use: 06/29/22 Lack of Transportation: No Lack of Food: Never True Current Housing: I Have Housing Concerned About Future Housing: No Difficulty Paying Gas/Electric Bills: No Difficulty Paying for Meds: No Currently Unemployed: No Education: Associate Degree Difficulty w/ Childcare or Family Care: No Additional living arrangements comments: Lives in [place]. with 3 children. Spiritual care concerns: No Exam Narrative: GENERAL: Well-appearing, well-nourished, and in no acute distress. HEAD: Normocephalic, atraumatic. EYES: PERRLA and EOMI. ENT: Nares clear, no rhinorrhea or epistaxis. Mucous membranes moist. Oropharynx without tonsillar hypertrophy exudate or other lesions. NECK: Supple. No adenopathy or masses. CHEST: No respiratory distress. Clear to auscultation. No wheezes rales or rhonchi HEART: Regular rate and rhythm. No murmur heard. Normal peripheral pulses. ABDOMEN: Soft, nontender, nondistended, normal active bowel sounds. MSK: Normal range of motion. No edema. SKIN: Multiple quarter-sized wounds to the bilateral upper arms, right greater than left. small amount of purulence noted but the wounds of the right arm but they are not malodorous. no surrounding erythema or red streaking up the extremities. Minimal warmth. NEURO: Alert and oriented x4. No focal deficits. PSYCH: Normal mood and affect. C
[2023-10-05 22:04] LABS: Basophils Percent Auto 0.2 % (0.2-1.2); Hemoglobin 10.8 g/dL (12.0-15.0); Immature Granulocyte Absolute 0.02 K/mm3 (0.00-0.031); Immature Granulocyte Percent A 0.2 % (0-0.5); Lymphocytes Absolute Auto 0.92 K/mm3 (0.9-3.2); Lymphocytes Percent Auto 9.5 % (18.3-44.2); Mean Corpuscular HGB Conc 31.8 g/dl (32-36); Mean Corpuscular Hemoglobin 26.7 pg (26-34); Mean Platelet Volume 10.3 fl (7.4-10.4); Monocytes Absolute Auto 0.4 K/mm3 (0.1-0.6); Monocytes Percent Auto 3.7 % (2.6-8.5); Neutrophils Absolute Auto 8.4 K/mm3 (1.3-6.7); Neutrophils Percent Auto 86.4 % (45.5-73.1); Platelet Count Result 249 k/mm3 (150-375); Red Blood Count 4.05 M/mm3 (4.2-5.4); Red Cell Distribution Width 14.9 % (11.5-14.5); White Blood Count 9.7 K/mm3 (4.5-10.0)
[2023-10-05 22:14] LABS: INR 1.2; Prothrombin Time 15.5 Seconds (11.1-14.7)
[2023-10-05 22:15] LABS: Alanine Aminotransferase 32 U/L (6-35); Albumin Level 4.7 g/dL (3.5-5.1); Alkaline Phosphatase 93 U/L (38-126); Anion Gap 13 mmol/L (4-12); Aspartate Amino Transferase 34 U/L (14-36); Bilirubin,Total 0.7 mg/dL (0.2-1.3); Blood Urea Nitrogen 18 mg/dL (7-17); Calcium 9.2 mg/dL (8.4-10.2); Carbon Dioxide 26 mmol/L (22-30); Chloride 99 mmol/L (98-107); Estimated CRCL calculation 61 ml/min; Estimated Glomerular Filt Rate 54; Glucose 103 mg/dL (65-110); Lipase 19 U/L (23-300); Partial Thromboplastin Time 27.2 Seconds (22.3-36.8); Potassium 4.3 mmol/L (3.4-5.0); Sodium 138 mmol/L (137-145)
--- NOTE | 2023-10-05 22:23 | PC.NURSE ---
Pt returned to room 3 at this time
[2023-10-05 22:26] LABS: Troponin I < 0.012 ng/mL (0.000-0.034)
[2023-10-05] MEDS: ONDANSETRON INJ 4 MG/2 ML VIAL IV PUSH (22:32)
[2023-10-05] MEDS: SODIUM CHLORIDE 0.9% IV 1,000 ML 999 ML IV CONT (22:32)
[2023-10-05] MEDS: cloNIDine HCL 0.1 MG TABLET PO (22:32)
[2023-10-05 22:35] VITALS: BP 149/94; PULSE 89; RESP 14; O2SAT 100
[2023-10-05 22:46] VITALS: O2SAT 99
[2023-10-05 23:38] VITALS: BP 151/84; PULSE 78; RESP 14; O2SAT 100
== END 2023-10-05 23:41 | disposition home or self-care (01) ==
PROVIDERS: Emergency Medicine; Emergency Provider Physician Assistant; PCP Physician Assistant
DX: L98.499 Non-pressure chronic ulcer of skin of other sites with unspecified severity (principal); I10 Essential (primary) hypertension
CPT/HCPCS: 36415; 71045; 73060; 80053; 83690; 84484; 85025; 85610; 85730; 87070; 87181; 87186; 87205; 93005; 96361; 96374; 99284; A9270; J2405; J7030

== ENCOUNTER 2023-10-31 13:17 | Emergency (ER) | payer OTHER, SELFPAY ==
[2023-10-31] VITALS (7 sets, daily range): BP systolic 108–160; BP diastolic 66–101; PULSE 81–125; RESP 10–16; TEMP 36.7–36.8; O2SAT 96–99
--- NOTE | ~2023-10-31 | XR_ITS ---
EXAMINATION: XR humerus RT DATE: 10/31/2023 16:55 INDICATION: Right upper limb cellulitis. IV drug abuse. TECHNIQUE: 2 views of right humerus were obtained. COMPARISON: Right humerus radiographs 10/05/2023 FINDINGS: Bone alignment is normal. No fracture. Joint spaces are normal. There is skin irregularity of the upper arm. IMPRESSION: 1. No evidence of osteomyelitis. Reviewed, dictated and finalized at location A.
--- NOTE | ~2023-10-31 | XR_ITS ---
EXAMINATION: XR humerus LT DATE: 10/31/2023 16:55 INDICATION: Left upper limb cellulitis. IV drug abuse. TECHNIQUE: 2 views of left humerus were obtained. COMPARISON: Left humerus radiographs 10/05/2023 FINDINGS: Alignment is normal. No fracture. Joint spaces are normal. There is skin irregularity of th e upper arm. IMPRESSION: 1. No evidence of osteomyelitis. Reviewed, dictated and finalized at location A.
--- NOTE | ~2023-10-31 | XR_ITS ---
XR chest 2V Ordering provider: Jared Alvarez MD History: 43 years Female with . chest pain, RAPID HEART BEAT . Comparison: October 05, 2023 FINDINGS: MEDIASTINUM: The cardiac silhouette is not enlarged. LUNGS: No infiltrates, effusions or pneumothorax. OTHER: No free air under the diaphragm. IMPRESSION: No acute cardiopulmonary pathology. Reviewed, dictated and finalized at location A.
--- NOTE | ~2023-10-31 | CT_ITS ---
EXAMINATION: CTA chest PE protocol DATE: 10/31/2023 16:25 INDICATION: SOB, elevated Dimer TECHNIQUE: Computed tomography angiography (CTA) of the chest was performed with 100 mL Omnipaque-350 intravenous contrast timed to evaluate the pulmonary arteries. Coronal maximum intensity projection 3D-reconstructions were created by the technologist. The dose-length product (DLP) was 232.20 mGy-cm. Automated exposure control and iterative reconstruction technique were employed. COMPARISON: X-ray chest, same date; 06/30/2022. FINDINGS: Lung parenchyma and airways: Clear. Pleura: Unremarkable. Thoracic inlet, axillae and chest wall: Unremarkable. Thoracic aorta: No significant dilation. No dissection. Mediastinum: Normal. Heart and pericardium: Normal. Coronary artery calcifications: Absent. Upper abdomen: No significant finding. Bones: No acute osseous finding. Pulmonary arteries: Study quality: Adequate. No pulmonary emboli detected. IMPRESSION: No CT evidence of acute pulmonary embolus. No acute process detected in the chest. Reviewed, dictated and finalized at location K.
--- NOTE | 2023-10-31 13:18 | ECG_ITS ---
Test Date: 2023-10-31 13:21:53 Measurements Intervals [place] Rate: 125 P: 50 GA: 165 QRS: 24 QRSD: 90 T: 65 QT: 403 QTc: 582 Interpretive Statements SINUS TACHYCARDIA NONSPECIFIC ST & T-WAVE ABNORMALITY ABNORMAL RHYTHM ECG Compared to ECG 10/05/2023 20:10:12 HEART RATE INCREASED, NO OTHER SIGNIFICANT CHANGE Electronically Signed On 10-31-2023 17:15:14 CDT by Srinivasan Orr M.D.
--- NOTE | 2023-10-31 14:11 | ED.ARRPALP ---
HPI - Arrhythmia/Palpitations General Chief Complaint: Arrhythmia/Palpitations Stated Complaint: palpitations Time Seen by Provider: 10/31/23 14:11 Focused HPI: Patient is a 43 y/o female who presents to the ED with c/o palpitations. Patient reports the palpitations began yesterday, described as though her heart is racing and skipped beats at times. She has been feeling short of breath and dizzy at times. Denies chest pain. Patient also complains of wound to her bilateral upper arms. States they have been present for the last 2-3 months. She skin pops Fentanyl daily into her upper arms. Last injected yesterday and her right upper arm. She has been diagnosed with a pseudomonal infection and is currently on Levaquin. Takes this as prescribed. She had previously been seeing wound care in [place], but has not been able to go since 10/19. Denies known fevers. Reports decreased appetite, nausea. GENERAL: Ill-appearing, well-nourished, and in no acute distress. HEAD: Normocephalic, atraumatic. CHEST: Clear to auscultation. ?No respiratory distress. HEART: Tachycardic with regular rhythm.?No appreciable murmur. SKIN: Large diffuse wounds encompassing almost entirety of bilateral upper arms with large areas of skin necrosis on R, large ulcer-like wounds with scarring, purulent drainage, malodorous yellow material. Surrounding erythema. NEURO: ?Alert and oriented x3. Patient screened in triage and initial orders placed.? ?Additional care and disposition to be based upon?diagnostic testing and treatment. Source: patient and old records reviewed Mode of arrival: ambulatory Limitations: no limitations Related Data Home Medications Medication Instructions Recorded Confirmed methadone 190 mg PO DAILY 02/03/21 06/30/22 famotidine 20 mg tablet (Pepcid) 20 mg PO BID PRN Stomach Upset 06/30/22 06/30/22 Allergies Allergy/AdvReac Type Severity Reaction Status Date / Time methadone Allergy Severe Other Verified 10/31/23 15:53 amoxicillin Allergy Mild Rash Verified 10/31/23 15:42 sumatriptan Allergy Mild ANAPHALAXIS, Verified 10/31/23 15:42 WHEEZING Sulfa (Sulfonamide AdvReac Hives Verified 10/31/23 15:42 Antibiotics) [facility] Past Medical History Medical History Anxiety Bipolar disorder Depression Hypertension Opioid abuse Surgical History Surgical History History of hysterectomy History of tubal ligation Family History Family History Mother Atrial fibrillation Social History Social History Social History: Surrogate medical decision maker: Maria L Cuevas, mother. Code status: Full code. Smoking status: Never smoker Alcohol intake: never Substance use: former Substance use type: heroin, opiates, painkillers and IV drugs Other substance usage details: fentanyl Last use: 06/29/22 Lack of Transportation: No Lack of Food: Never True Current Housing: I Have Housing Concerned About Future Housing: No Difficulty Paying Gas/Electric Bills: No Difficulty Paying for Meds: No Currently Unemployed: No Education: Associate Degree Difficulty w/ Childcare or Family Care: No Additional living arrangements comments: Lives in [place]. with 3 children. Spiritual care concerns: No Course Vital Signs Vital signs: Vital Signs Pulse Rate 125 H 10/31/23 13:19 Respiratory Rate 16 10/31/23 13:19 Temperature 98.0 F 10/31/23 15:20 Pulse Rate 85 10/31/23 20:01 Respiratory Rate 14 10/31/23 20:01 Blood Pressure 128/66 10/31/23 20:01 Pulse Oximetry 98 10/31/23 20:01 MDM - Arrhythmia/Palpitations MDM Narrative Medical decision making narrative: MSE by RAZIA in triage. Lab Data 10/31/23 15:18 10/31/23 15:18
[2023-10-31] MEDS: ASPIRIN 81 MG CHEWABLE TABLET 324 MG PO (14:48)
[2023-10-31 15:32] LABS: Basophils Percent Auto 0.2 % (0.2-1.2); Eosinophils Absolute Auto 0.2 K/mm3 (0-0.3); Eosinophils Percent Auto 1.8 % (0-4.4); Hematocrit 35.5 % (37.0-47.0); Hemoglobin 11.4 g/dL (12.0-15.0); Immature Granulocyte Absolute 0.03 K/mm3 (0.00-0.031); Immature Granulocyte Percent A 0.3 % (0-0.5); Lymphocytes Absolute Auto 0.93 K/mm3 (0.9-3.2); Lymphocytes Percent Auto 9.8 % (18.3-44.2); Mean Corpuscular HGB Conc 32.1 g/dl (32-36); Mean Corpuscular Hemoglobin 27.5 pg (26-34); Mean Corpuscular Volume 85.5 fl (80-100); Mean Platelet Volume 10.7 fl (7.4-10.4); Monocytes Absolute Auto 0.6 K/mm3 (0.1-0.6); Monocytes Percent Auto 6.3 % (2.6-8.5); Neutrophils Absolute Auto 7.8 K/mm3 (1.3-6.7); Neutrophils Percent Auto 81.6 % (45.5-73.1); Platelet Count Result 245 k/mm3 (150-375); Red Blood Count 4.15 M/mm3 (4.2-5.4); Red Cell Distribution Width 14.6 % (11.5-14.5); White Blood Count 9.5 K/mm3 (4.5-10.0)
[2023-10-31 15:44] LABS: Alanine Aminotransferase 9 U/L (6-35); Albumin Level 3.8 g/dL (3.5-5.1); Alkaline Phosphatase 76 U/L (38-126); Anion Gap 10 mmol/L (4-12); Aspartate Amino Transferase 17 U/L (14-36); Bilirubin,Total 0.6 mg/dL (0.2-1.3); Blood Urea Nitrogen 20 mg/dL (7-17); Calcium 8.9 mg/dL (8.4-10.2); Carbon Dioxide 28 mmol/L (22-30); Chloride 96 mmol/L (98-107); Estimated CRCL calculation 59 ml/min; Estimated Glomerular Filt Rate 54; Glucose 132 mg/dL (65-110); INR 1.2; Lipase 33 U/L (23-300); Partial Thromboplastin Time 29.2 Seconds (22.3-36.8); Potassium 3.8 mmol/L (3.4-5.0); Prothrombin Time 15.5 Seconds (11.1-14.7); Sodium 134 mmol/L (137-145)
[2023-10-31 15:46] LABS: Magnesium 2.1 mg/dL (1.6-2.3)
[2023-10-31 15:55] LABS: Troponin I < 0.012 ng/mL (0.000-0.034)
[2023-10-31 15:55] LABS: Lactic Acid Reflex 0.9 mmol/L (0.7-2.0)
[2023-10-31 16:03] LABS: D Dimer 1.04 ug/mL (<0.48)
[2023-10-31] MEDS: SODIUM CHLORIDE 0.9% IV 1,000 ML 999 ML IV CONT (17:15)
--- NOTE | 2023-10-31 18:26 | ECG_ITS ---
Test Date: 2023-10-31 18:30:35 Measurements Intervals [place] Rate: 79 P: 34 UT: 178 QRS: 19 QRSD: 98 T: 36 QT: 398 QTc: 457 Interpretive Statements SINUS RHYTHM Compared to ECG 10/31/2023 13:21:53 Sinus tachycardia no longer present Electronically Signed On 11-01-2023 14:35:33 CDT by Kylie Nova M.D.
[2023-10-31 18:53] LABS: Troponin I < 0.012 ng/mL (0.000-0.034)
--- NOTE | 2023-10-31 19:29 | ED.ARRPALP ---
HPI - Arrhythmia/Palpitations General Chief Complaint: Arrhythmia/Palpitations Stated Complaint: palpitations Time Seen by Provider: 10/31/23 14:11 Source: patient and old records reviewed Mode of arrival: ambulatory Limitations: no limitations History of Present Illness HPI narrative: This is a 43-year-old female, with history of torsades [place] and skin infection related to IV drug use, who presents the emergency department complaining shortness of breath and palpitation for the past 2 days. The patient denies any recent change in her medications. She states she is taking Levaquin without difficulty under the guidance of her wound care management team at [facility]. She states she continues to use injected fentanyl, primarily in the arms. She denies chest pain, weakness/numbness, loss of consciousness, bleeding and has no other complaints at this time. Related Data Home Medications Medication Instructions Recorded Confirmed methadone 190 mg PO DAILY 02/03/21 06/30/22 famotidine 20 mg tablet (Pepcid) 20 mg PO BID PRN Stomach Upset 06/30/22 06/30/22 Allergies Allergy/AdvReac Type Severity Reaction Status Date / Time methadone Allergy Severe Other Verified 10/31/23 15:53 amoxicillin Allergy Mild Rash Verified 10/31/23 15:42 sumatriptan Allergy Mild ANAPHALAXIS, Verified 10/31/23 15:42 WHEEZING Sulfa (Sulfonamide AdvReac Hives Verified 10/31/23 15:42 Antibiotics) Review of Systems Review of Systems: All systems reviewed & are unremarkable except as noted in HPI and below PMFSH Past Medical History Medical History Anxiety Bipolar disorder Depression Hypertension Opioid abuse Surgical History Surgical History History of hysterectomy History of tubal ligation Family History Family History Mother Atrial fibrillation Social History Social History Social History: Surrogate medical decision maker: Maria L Cuevas, mother. Code status: Full code. Smoking status: Never smoker Alcohol intake: never Substance use: former Substance use type: heroin, opiates, painkillers and IV drugs Other substance usage details: fentanyl Last use: 06/29/22 Lack of Transportation: No Lack of Food: Never True Current Housing: I Have Housing Concerned About Future Housing: No Difficulty Paying Gas/Electric Bills: No Difficulty Paying for Meds: No Currently Unemployed: No Education: Associate Degree Difficulty w/ Childcare or Family Care: No Additional living arrangements comments: Lives in [place]. with 3 children. Spiritual care concerns: No Exam Narrative: GENERAL: Well-developed, well-nourished, and in no acute distress. Appears anxious HEAD: Normocephalic, atraumatic. EYES: PERRLA and EOMI. ENT: Nares clear, no rhinorrhea or epistaxis. Mucous membranes moist. Oropharynx without tonsillar hypertrophy exudate or other lesions. CHEST: Clear to auscultation. No respiratory distress. No wheezes rales or rhonchi HEART: Regular rate and rhythm. No murmur heard. Normal peripheral pulses. ABDOMEN: Soft, nontender, nondistended, normal active bowel sounds. EXTREMITIES: The bilateral arms are indurated with multiple ulcerating appearing lesions with healthy granulation tissue and no active purulent drainage. There is approximately a 1 cm area of erythema around each ulcerated region of the arms. There is no visible bone. There is no palpable crepitus or noted bullae. Normal range of motion. No edema. SKIN: Bilateral lesions of the arms, consistent with ?skin popping. ? Skin otherwise warm, dry, no rash. NEURO: Alert and oriented x3. No focal deficit. Moving all 4 limbs spontaneously PSYCH: Normal mood and affect. Course Course Emergenc
== END 2023-10-31 20:03 | disposition home or self-care (01) ==
PROVIDERS: Emergency Medicine; Physician Assistant; Emergency Provider Preventive Medicine Aerospace Medicine; PCP Physician Assistant
DX: E86.0 Dehydration (principal); R00.0 Tachycardia, unspecified; F11.10 Opioid abuse, uncomplicated; F41.9 Anxiety disorder, unspecified; F31.9 Bipolar disorder, unspecified; I10 Essential (primary) hypertension
CPT/HCPCS: 36415; 71046; 71275; 73060; 80053; 83605; 83690; 83735; 84484; 85025; 85380; 85610; 85730; 87040; 93005; 96360; 96361; 99284; A9270; J7030; Q9967

== ENCOUNTER 2023-11-14 22:27 | Emergency (ER) | payer OTHER, SELFPAY ==
--- NOTE | ~2023-11-14 | XR_ITS ---
EXAMINATION: XR chest 2V Exam Date/Time: 11/14/2023 22:50 CDT HISTORY: sob, palpitations Comparison: 10/31/2023. RESULT: Lines, tubes, and devices: None. Lungs and pleura: Clear. Cardiomediastinal silhouette: Stable. Other: No acute osseous or upper abdominal finding. IMPRESSION: No acute cardiopulmonary process. Reviewed, dictated and finalized at location K.
--- NOTE | 2023-11-14 22:30 | ECG_ITS ---
Test Date: 2023-11-14 22:33:19 Measurements Intervals [place] Rate: 130 P: 0 ID: 144 QRS: -6 QRSD: 85 T: 86 QT: 387 QTc: 571 Interpretive Statements SINUS TACHYCARDIA Compared to ECG 10/31/2023 18:30:35 SINUS TACHYCARDIA NOW PRESENT Electronically Signed On 11-15-2023 10:21:10 CDT by Kylie Nova M.D.
[2023-11-14 22:34] VITALS: BP 164/98; PULSE 138; RESP 15; TEMP 36.8; O2SAT 100
[2023-11-15 00:38] VITALS: PULSE 106
--- NOTE | 2023-11-15 00:38 | ED.ARRPALP ---
HPI - Arrhythmia/Palpitations General Chief Complaint: Arrhythmia/Palpitations Stated Complaint: sob, dizzy, palpitations Time Seen by Provider: 11/15/23 00:26 Source: patient Mode of arrival: ambulatory Limitations: no limitations History of Present Illness HPI narrative: This is a 43-year-old female with history of torsade, skin popping for fit no use who presents to the ED for chief complaint of palpitations and shortness of breath onset today. Patient states that she is anxious about going back and torsades. States that she was sent into torsades potentially by methadone in the past. She started having palpitations today want to be seen before she had to have a cardioversion. reports last fentanyl use was 2 days ago. She also reports some nausea, bilateral arm tingling. denies chest pain, focal weakness, LOC or any further complaints. she is seeing Wound Care regularly for the skin popping lesions and infections to bilateral upper arms. Related Data Home Medications Medication Instructions Recorded Confirmed methadone 190 mg PO DAILY 02/03/21 06/30/22 famotidine 20 mg tablet (Pepcid) 20 mg PO BID PRN Stomach Upset 06/30/22 06/30/22 Allergies Allergy/AdvReac Type Severity Reaction Status Date / Time methadone Allergy Severe Other Verified 11/14/23 22:57 amoxicillin Allergy Mild Rash Verified 11/14/23 22:57 sumatriptan Allergy Mild ANAPHALAXIS, Verified 11/14/23 22:57 WHEEZING Sulfa (Sulfonamide AdvReac Hives Verified 11/14/23 22:57 Antibiotics) Review of Systems Review of Systems: All systems as dictated in HPI [facility] Past Medical History Medical History Anxiety Bipolar disorder Depression Hypertension Opioid abuse Surgical History Surgical History History of hysterectomy History of tubal ligation Family History Family History Mother Atrial fibrillation Social History Social History Social History: Surrogate medical decision maker: Maria L Cuevas, mother. Code status: Full code. Smoking status: Never smoker Alcohol intake: never Substance use: former Substance use type: heroin, opiates, painkillers and IV drugs Other substance usage details: fentanyl Last use: 06/29/22 Lack of Transportation: No Lack of Food: Never True Current Housing: I Have Housing Concerned About Future Housing: No Difficulty Paying Gas/Electric Bills: No Difficulty Paying for Meds: No Currently Unemployed: No Education: Associate Degree Difficulty w/ Childcare or Family Care: No Additional living arrangements comments: Lives in [place]. with 3 children. Spiritual care concerns: No Exam Narrative: GENERAL: Well-appearing, well-nourished, and in no acute distress. HEAD: Normocephalic, atraumatic. EYES: PERRLA and EOMI. ENT: Nares clear, no rhinorrhea or epistaxis. Mucous membranes moist. Oropharynx without tonsillar hypertrophy exudate or other lesions. NECK: Supple. No adenopathy or masses. CHEST: No respiratory distress. Clear to auscultation. No wheezes rales or rhonchi HEART: Regular rate and rhythm. No murmur heard. Normal peripheral pulses. ABDOMEN: Soft, nontender, nondistended, normal active bowel sounds. MSK: Normal range of motion. No edema. SKIN: Bilateral lesions of the arms, consistent with ?skin popping. ? Skin otherwise warm, dry, no rash. NEURO: Alert and oriented x4. No focal deficits. PSYCH: Normal mood and affect. Course Vital Signs Vital signs: Vital Signs Temperature 98.3 F 11/14/23 22:34 Pulse Rate 138 H 11/14/23 22:34 Respiratory Rate 15 11/14/23 22:34 Blood Pressure 164/98 H 11/14/23 22:34 Pulse Oximetry 100 11/14/23 22:34 Oxygen Delivery Room Air 11/14/23 22:34
[2023-11-15 00:39] VITALS: BP 158/94; PULSE 104; RESP 19; O2SAT 97
[2023-11-15] MEDS: SODIUM CHLORIDE 0.9% IV 1,000 ML 999 ML IV CONT (01:35)
[2023-11-15] MEDS: ONDANSETRON INJ 4 MG/2 ML VIAL IV PUSH (01:36)
[2023-11-15] MEDS: cloNIDine HCL 0.1 MG TABLET PO (01:36)
[2023-11-15 01:42] LABS: Basophils Percent Auto 0.3 % (0.2-1.2); Eosinophils Absolute Auto 0.1 K/mm3 (0-0.3); Eosinophils Percent Auto 1.6 % (0-4.4); Hematocrit 31.5 % (37.0-47.0); Hemoglobin 10.1 g/dL (12.0-15.0); Immature Granulocyte Absolute 0.02 K/mm3 (0.00-0.031); Immature Granulocyte Percent A 0.3 % (0-0.5); Lymphocytes Absolute Auto 0.97 K/mm3 (0.9-3.2); Lymphocytes Percent Auto 15.2 % (18.3-44.2); Mean Corpuscular HGB Conc 32.1 g/dl (32-36); Mean Corpuscular Volume 84.2 fl (80-100); Mean Platelet Volume 10.1 fl (7.4-10.4); Monocytes Absolute Auto 0.5 K/mm3 (0.1-0.6); Monocytes Percent Auto 7.3 % (2.6-8.5); Neutrophils Absolute Auto 4.8 K/mm3 (1.3-6.7); Neutrophils Percent Auto 75.3 % (45.5-73.1); Platelet Count Result 279 k/mm3 (150-375); Red Blood Count 3.74 M/mm3 (4.2-5.4); Red Cell Distribution Width 14.6 % (11.5-14.5); White Blood Count 6.4 K/mm3 (4.5-10.0)
[2023-11-15 01:50] LABS: Chloride 101 mmol/L (98-107)
[2023-11-15 01:51] LABS: Magnesium 2.2 mg/dL (1.6-2.3)
[2023-11-15 01:54] LABS: Alanine Aminotransferase 7 U/L (6-35); Albumin Level 3.5 g/dL (3.5-5.1); Alkaline Phosphatase 95 U/L (38-126); Anion Gap 9 mmol/L (4-12); Aspartate Amino Transferase 14 U/L (14-36); Bilirubin,Total 0.3 mg/dL (0.2-1.3); Blood Urea Nitrogen 16 mg/dL (7-17); Carbon Dioxide 28 mmol/L (22-30); Estimated CRCL calculation 59 ml/min; Estimated Glomerular Filt Rate 54; Glucose 118 mg/dL (65-110); Potassium 4.1 mmol/L (3.4-5.0); Sodium 138 mmol/L (137-145)
--- NOTE | 2023-11-15 02:31 | ECG_ITS ---
Test Date: 2023-11-15 02:39:52 Measurements Intervals [place] Rate: 82 P: 6 CT: 161 QRS: 16 QRSD: 92 T: 29 QT: 376 QTc: 442 Interpretive Statements SINUS RHYTHM Compared to ECG 11/14/2023 22:33:19 Sinus tachycardia no longer present Electronically Signed On 11-15-2023 10:23:17 CDT by Kylie Nova M.D.
[2023-11-15 03:20] VITALS: BP 157/97; PULSE 99; RESP 14; TEMP 36.8; O2SAT 99
== END 2023-11-15 03:22 | disposition home or self-care (01) ==
PROVIDERS: Emergency Medicine; Emergency Provider Physician Assistant
DX: R00.2 Palpitations (principal); F11.23 Opioid dependence with withdrawal; R00.0 Tachycardia, unspecified; F41.9 Anxiety disorder, unspecified; F32.A Depression, unspecified; I10 Essential (primary) hypertension
CPT/HCPCS: 36415; 71046; 80053; 83735; 85025; 93005; 96361; 96374; 99284; A9270; J2405; J7030

== ENCOUNTER 2024-03-07 14:36 | Emergency (ER) | payer OTHER, SELFPAY ==
--- NOTE | ~2024-03-07 | XR_ITS ---
EXAMINATION: XR chest 2V DATE: 03/07/2024 15:17 INDICATION: Palpitations TECHNIQUE: PA and lateral views of the chest were obtained. COMPARISON: Chest radiograph dated 11/14/2023 FINDINGS: The lungs remain clear with no focal airspace opacities, pulmonary edema, pleural effusion or pneumot horax. The cardiomediastinal silhouette is normal. Visualized bones and soft tissues are unremarkable . IMPRESSION: 1. No acute cardiopulmonary disease. Reviewed, dictated and finalized at location A. [facility] [employer]
--- NOTE | 2024-03-07 14:58 | ECG_ITS ---
Test Date: 2024-03-07 15:03:29 Measurements Intervals [place] Rate: 72 P: 3 SC: 160 QRS: 16 QRSD: 97 T: 26 QT: 420 QTc: 461 Interpretive Statements SINUS RHYTHM Compared to ECG 11/15/2023 02:39:52 No significant changes Electronically Signed On 03-07-2024 19:02:48 PAINT TINTER by Shantell Clemente
--- NOTE | 2024-03-07 14:59 | ED.ARRPALP ---
HPI - Arrhythmia/Palpitations General Chief Complaint: Arrhythmia/Palpitations <Macey Collazo PA-C - Last Filed: 03/12/24 17:54> Stated Complaint: palpitations and shortness of breath <Macey Collazo PA-C - Last Filed: 03/12/24 17:54> Time Seen by Provider: 03/07/24 14:59 <Macey Collazo PA-C - Last Filed: 03/12/24 17:54> Focused HPI: This is a 43 year old female that presents to the ER for palpitations. Has history of torsades. Reports she started to feel nauseous. Reports she feels like she has been having a lot of PVCs and feels like her heart is racing. This concerned her and prompted her to be seen. She feels like short of breath. GENERAL: Well-appearing, well-nourished, and in no acute distress. HEAD: Normocephalic, atraumatic. CHEST: Clear to auscultation. ?No respiratory distress. HEART: Regular rate and rhythm.? NEURO: ?Alert and oriented x3. Patient screened in triage and initial orders placed.? ?Additional care and disposition to be based upon?diagnostic testing and treatment. <Macey Collazo PA-C - Last Filed: 03/12/24 17:54> Source: patient <Vj Tsang MD - Last Filed: 03/07/24 21:59> Mode of arrival: ambulatory <Vj Tsang MD - Last Filed: 03/07/24 21:59> Limitations: no limitations <Vj Tsang MD - Last Filed: 03/07/24 21:59> History of Present Illness HPI narrative: 43-year-old with a history of IV drug abuse presents to the ER with complaints of intermittent palpitations. she denies any chest pain or lightheadedness. Patient states that she has a history of torsades. <Vj Tsang MD - Last Filed: 03/07/24 21:59> MD complaint: palpitations <Vj Tsang MD - Last Filed: 03/07/24 21:59> Onset (ago): week(s) <Vj Tsang MD - Last Filed: 03/07/24 21:59> Duration: intermittent <Vj Tsang MD - Last Filed: 03/07/24 21:59> Severity: mild <Vj Tsang MD - Last Filed: 03/07/24 21:59> Context: occurred during rest <Vj Tsang MD - Last Filed: 03/07/24 21:59> Associated symptoms: denies other symptoms <Vj Tsang MD - Last Filed: 03/07/24 21:59> Related Data Home Medications: Home Medications ?Medication ?Instructions ?Recorded ?Confirmed ?Last Taken ?Type methadone 190 mg PO DAILY 02/03/21 06/30/22 02/02/21 History famotidine 20 mg tablet (Pepcid) 20 mg PO BID PRN Stomach Upset 06/30/22 06/30/22 Unknown History <Macey Collazo PA-C - Last Filed: 03/12/24 17:54> Allergies/Adverse Reactions: Allergies Allergy/AdvReac Type Severity Reaction Status Date / Time methadone Allergy Severe Other Verified 03/09/24 15:51 amoxicillin Allergy Mild Rash Verified 03/09/24 15:51 clindamycin Allergy Mild Rash Verified 03/09/24 15:51 sumatriptan Allergy Mild ANAPHALAXIS, Verified 03/09/24 15:51 WHEEZING Sulfa (Sulfonamide AdvReac Hives Verified 03/09/24 15:51 Antibiotics) <Macey Collazo PA-C - Last Filed: 03/12/24 17:54> Review of Systems Review of Systems: All systems reviewed & are unremarkable except as noted in HPI and below <Vj Tsang MD - Last Filed: 03/07/24 21:59> Constitutional: Constitutional: Reports no additional constitutional complaints <Vj Tsang MD - Last Filed: 03/07/24 21:59> Eyes: Eyes: Reports no additional eye complaints <Vj Tsang MD - Last Filed: 03/07/24 21:59> ENT: Reports system reviewed and no additional complaints, except as documented <Vj Tsang MD - Last Filed: 03/07/24 21:59> Cardiovascular: Cardiovascular: Reports as per HPI <Vj Tsang MD - Last Filed: 03/07/24 21:59> Genitourinary: Genitourinary: Reports no additional female genitourinary complaints <Vj Tsang MD - Last Filed: 03/07/24 21:59> Musculoskeletal: Musculoskeletal: Reports no additional musculoskeletal complaints <Vj Tsang MD - Last Filed: 03/07/24 21:59> PMFSH Past Medical History Medical History: Medical History Bipolar disorder Depression Anxiety Opioid abuse Hypertension <Macey Collazo PA-C - Last Filed: 03/12/24 17:54> Surgical History Surgical History: Surgical History History of tubal ligation History of hysterectomy <Macey Collazo PA-C - Last Filed: 03/12/24 17:54> Family History Family History: Family History Mother Atrial fibrillation <Macey Collazo PA-C - Last Filed: 03/12/24 17:54> Social History Social History: Social History Social History: Surrogate medical decision maker: Maria L Cuevas, mother. Code status: Full code. Smoking status: Never smoker Alcohol intake: never Substance use: former Substance use type: heroin, opiates, painkillers and IV drugs Other substance usage details: fentanyl Last use: 06/29/22 Lack of Transportation: No Lack of Food: Never True Current Housing: I Have Housing Concerned About Future Housing: No Difficulty Paying Gas/Electric Bills: No Difficulty Paying for Meds: No Currently Unemployed: No Education: Associate Degree Difficulty w/ Childcare or Family Care: No Additional living arrangements comments: Lives in [place]. with 3 children. Spiritual care concerns: No <Macey Collazo PA-C - Last Filed: 03/12/24 17:54> Exam Narrative: GENERAL: Well-appearing, well-nourished, and in no acute distress. HEAD: Normocephalic, atraumatic. EYES: PERRLA and EOMI.. NECK: Supple. CHEST: Clear to auscultation. No respiratory distress. HEART: Regular rate and rhythm. No murmur heard. Normal peripheral pulses. ABDOMEN: Soft, nontender, nondistended, normal active bowel sounds. EXTREMITIES: Normal range of motion. No edema. Has wound on the right biceps which is chronic SKIN: Warm, dry, no rash. NEURO: No focal deficits. Alert and oriented x3. PSYCH: Normal mood and affect. <Vj Tsang MD - Last Filed: 03/07/24 21:59> Course Course Emergency Course: patient feeling comfortable . informed about the lab work.,EKG findins , advised her to follow with her doctor <Vj Tsang MD - Last Filed: 03/07/24 21:59> Vital Signs Vital signs: Vital Signs Pulse Rate 50 L 03/07/24 19:34 Respiratory Rate 12 03/07/24 19:34 Blood Pressure 142/95 H 03/07/24 19:34 Pulse Oximetry 100 03/07/24 19:34 Pulse Rate 88 03/07/24 22:40 Respiratory Rate 20 03/07/24 22:40 Blood Pressure 142/95 H 03/07/24 19:34 Pulse Oximetry 99 03/07/24 22:40 <Macey Collazo PA-C - Last Filed: 03/12/24 17:54> Vital Signs Pulse Rate 50 L 03/07/24 19:34 Respiratory Rate 12 03/07/24 19:34 Blood Pressure 142/95 H 03/07/24 19:34 Pulse Oximetry 100 03/07/24 19:34 Pulse Rate 88 03/07/24 22:40 Respiratory Rate 20 03/07/24 22:40 Blood Pressure 142/95 H 03/07/24 19:34 Pulse Oximetry 99 03/07/24 22:40 <Vj Tsang MD - Last Filed: 03/07/24 21:59> MDM - Arrhythmia/Palpitations Lab Data Result diagrams: 03/07/24 18:25 03/07/24 21:28 <Macey Collazo PA-C - Last Filed: 03/12/24 17:54> Labs: Lab Results 03/07/24 03/07/24 03/07/24 Range/Units 18:25 21:28 21:28 WBC 5.8 (4.5-10.0) K/mm3 RBC 3.90 L (4.2-5.4) M/mm3 Hgb 9.6 L (12.0-15.0) g/dL Hct 31.6 L (37.0-47.0) % MCV 81.0 (80-100) fl MCH 24.6 L (26-34) pg MCHC 30.4 L (32-36) g/dl RDW 15.1 H (11.5-14.5) % Plt Count 264 (150-375) k/mm3 MPV 11.2 H (7.4-10.4) fl Immature Gran % (Auto) 0.7 H (0-0.5) % Neut % (Auto) 76.1 H (45.5-73.1) % Lymph % (Auto) 18.2 L (18.3-44.2) % [place] % (Auto) 4.3 (2.6-8.5) % Eos % (Auto) 0.5 (0-4.4) % Baso % (Auto) 0.2 (0.2-1.2) % Lymph # (Auto) 1.05 (0.9-3.2) K/mm3 [place] # (Auto) 0.3 (0.1-0.6) K/mm3 Eos # (Auto) 0.0 (0-0.3) K/mm3 Baso # (Auto) 0.0 (0.0-0.1) K/mm3 Abs Immat Gran (auto) 0.04 H (0.00-0.031) K/mm3 Absolute Neuts (auto) 4.4 (1.3-6.7) K/mm3 Absolute Nucleated RBC 0.000 (0.0-0.012) K/mm3 Nucleated RBC % 0.0 (0.0-0.2) % PT 15.5 H (11.1-14.7) Seconds INR 1.2 APTT 28.9 (22.3-36.8) Seconds Sodium 140 Cancelled (137-145) mmol/L Potassium 3.7 (3.4-5.0) mmol/L Chloride (98-107) mmol/L Carbon Dioxide (22-30) mmol/L Anion Gap (4-12) mmol/L BUN (7-17) mg/dL Creatinine (0.7-1.0) mg/dL Estim Creat Clear Calc ml/min Estimated GFR (59 - ) Glucose (65-110) mg/dL Calcium (8.4-10.2) mg/dL Magnesium (1.6-2.3) mg/dL Total Bilirubin (0.2-1.3) mg/dL AST (14-36) U/L ALT (6-35) U/L Alkaline Phosphatase (38-126) U/L Troponin I Cancelled Total Protein (6.3-8.2) g/dL Albumin (3.5-5.1) g/dL Lipase (23-300) U/L 03/07/24 03/07/24 03/07/24 Range/Units 21:28 21:28 21:28 WBC (4.5-10.0) K/mm3 RBC (4.2-5.4) M/mm3 Hgb (12.0-15.0) g/dL Hct (37.0-47.0) % MCV (80-100) fl MCH (26-34) pg MCHC (32-36) g/dl RDW (11.5-14.5) % Plt Count (150-375) k/mm3 MPV (7.4-10.4) fl Immature Gran % (Auto) (0-0.5) % Neut % (Auto) (45.5-73.1) % Lymph % (Auto) (18.3-44.2) % [place] % (Auto) (2.6-8.5) % Eos % (Auto) (0-4.4) % Baso % (Auto) (0.2-1.2) % Lymph # (Auto) (0.9-3.2) K/mm3 [place] # (Auto) (0.1-0.6) K/mm3 Eos # (Auto) (0-0.3) K/mm3 Baso # (Auto) (0.0-0.1) K/mm3 Abs Immat Gran (auto) (0.00-0.031) K/mm3 Absolute Neuts (auto) (1.3-6.7) K/mm3 Absolute Nucleated RBC (0.0-0.012) K/mm3 Nucleated RBC % (0.0-0.2) % PT (11.1-14.7) Seconds INR APTT (22.3-36.8) Seconds Sodium (137-145) mmol/L Potassium Cancelled (3.4-5.0) mmol/L Chloride 109 H Cancelled (98-107) mmol/L Carbon Dioxide 29 Cancelled (22-30) mmol/L Anion Gap 2 L (4-12) mmol/L BUN (7-17) mg/dL Creatinine (0.7-1.0) mg/dL Estim Creat Clear Calc ml/min Estimated GFR (59 - ) Glucose (65-110) mg/dL Calcium (8.4-10.2) mg/dL Magnesium (1.6-2.3) mg/dL Total Bilirubin (0.2-1.3) mg/dL AST (14-36) U/L ALT (6-35) U/L Alkaline Phosphatase (38-126) U/L Troponin I Total Protein (6.3-8.2) g/dL Albumin (3.5-5.1) g/dL Lipase (23-300) U/L 03/07/24 03/07/24 03/07/24 Range/Units 21:28 21:28 21:28 WBC (4.5-10.0) K/mm3 RBC (4.2-5.4) M/mm3 Hgb (12.0-15.0) g/dL Hct (37.0-47.0) % MCV (80-100) fl MCH (26-34) pg MCHC (32-36) g/dl RDW (11.5-14.5) % Plt Count (150-375) k/mm3 MPV (7.4-10.4) fl Immature Gran % (Auto) (0-0.5) % Neut % (Auto) (45.5-73.1) % Lymph % (Auto) (18.3-44.2) % [place] % (Auto) (2.6-8.5) % Eos % (Auto) (0-4.4) % Baso % (Auto) (0.2-1.2) % Lymph # (Auto) (0.9-3.2) K/mm3 [place] # (Auto) (0.1-0.6) K/mm3 Eos # (Auto) (0-0.3) K/mm3 Baso # (Auto) (0.0-0.1) K/mm3 Abs Immat Gran (auto) (0.00-0.031) K/mm3 Absolute Neuts (auto) (1.3-6.7) K/mm3 Absolute Nucleated RBC (0.0-0.012) K/mm3 Nucleated RBC % (0.0-0.2) % PT (11.1-14.7) Seconds INR APTT (22.3-36.8) Seconds Sodium (137-145) mmol/L Potassium (3.4-5.0) mmol/L Chloride (98-107) mmol/L Carbon Dioxide (22-30) mmol/L Anion Gap Cancelled (4-12) mmol/L BUN 18 H Cancelled (7-17) mg/dL Creatinine 0.90 Cancelled (0.7-1.0) mg/dL Estim Creat Clear Calc 64 ml/min Estimated GFR (59 - ) Glucose (65-110) mg/dL Calcium (8.4-10.2) mg/dL Magnesium (1.6-2.3) mg/dL Total Bilirubin (0.2-1.3) mg/dL AST (14-36) U/L ALT (6-35) U/L Alkaline Phosphatase (38-126) U/L Troponin I Total Protein (6.3-8.2) g/dL Albumin (3.5-5.1) g/dL Lipase (23-300) U/L 03/07/24 03/07/24 03/07/24 Range/Units 21:28 21:28 21:28 WBC (4.5-10.0) K/mm3 RBC (4.2-5.4) M/mm3 Hgb (12.0-15.0) g/dL Hct (37.0-47.0) % MCV (80-100) fl MCH (26-34) pg MCHC (32-36) g/dl RDW (11.5-14.5) % Plt Count (150-375) k/mm3 MPV (7.4-10.4) fl Immature Gran % (Auto) (0-0.5) % Neut % (Auto) (45.5-73.1) % Lymph % (Auto) (18.3-44.2) % [place] % (Auto) (2.6-8.5) % Eos % (Auto) (0-4.4) % Baso % (Auto) (0.2-1.2) % Lymph # (Auto) (0.9-3.2) K/mm3 [place] # (Auto) (0.1-0.6) K/mm3 Eos # (Auto) (0-0.3) K/mm3 Baso # (Auto) (0.0-0.1) K/mm3 Abs Immat Gran (auto) (0.00-0.031) K/mm3 Absolute Neuts (auto) (1.3-6.7) K/mm3 Absolute Nucleated RBC (0.0-0.012) K/mm3 Nucleated RBC % (0.0-0.2) % PT (11.1-14.7) Seconds INR APTT (22.3-36.8) Seconds Sodium (137-145) mmol/L Potassium (3.4-5.0) mmol/L Chloride (98-107) mmol/L Carbon Dioxide (22-30) mmol/L Anion Gap (4-12) mmol/L BUN (7-17) mg/dL Creatinine (0.7-1.0) mg/dL Estim Creat Clear Calc Cancelled ml/min Estimated GFR > 60 Cancelled (59 - ) Glucose 95 Cancelled (65-110) mg/dL Calcium 8.7 (8.4-10.2) mg/dL Magnesium (1.6-2.3) mg/dL Total Bilirubin (0.2-1.3) mg/dL AST (14-36) U/L ALT (6-35) U/L Alkaline Phosphatase (38-126) U/L Troponin I Total Protein (6.3-8.2) g/dL Albumin (3.5-5.1) g/dL Lipase (23-300) U/L 03/07/24 03/07/24 Range/Units 21:28 21:28 WBC (4.5-10.0) K/mm3 RBC (4.2-5.4) M/mm3 Hgb (12.0-15.0) g/dL Hct (37.0-47.0) % MCV (80-100) fl MCH (26-34) pg MCHC (32-36) g/dl RDW (11.5-14.5) % Plt Count (150-375) k/mm3 MPV (7.4-10.4) fl Immature Gran % (Auto) (0-0.5) % Neut % (Auto) (45.5-73.1) % Lymph % (Auto) (18.3-44.2) % [place] % (Auto) (2.6-8.5) % Eos % (Auto) (0-4.4) % Baso % (Auto) (0.2-1.2) % Lymph # (Auto) (0.9-3.2) K/mm3 [place] # (Auto) (0.1-0.6) K/mm3 Eos # (Auto) (0-0.3) K/mm3 Baso # (Auto) (0.0-0.1) K/mm3 Abs Immat Gran (auto) (0.00-0.031) K/mm3 Absolute Neuts (auto) (1.3-6.7) K/mm3 Absolute Nucleated RBC (0.0-0.012) K/mm3 Nucleated RBC % (0.0-0.2) % PT (11.1-14.7) Seconds INR APTT (22.3-36.8) Seconds Sodium (137-145) mmol/L Potassium (3.4-5.0) mmol/L Chloride (98-107) mmol/L Carbon Dioxide (22-30) mmol/L Anion Gap (4-12) mmol/L BUN (7-17) mg/dL Creatinine (0.7-1.0) mg/dL Estim Creat Clear Calc ml/min Estimated GFR (59 - ) Glucose (65-110) mg/dL Calcium Cancelled (8.4-10.2) mg/dL Magnesium 2.0 Cancelled (1.6-2.3) mg/dL Total Bilirubin 0.5 (0.2-1.3) mg/dL AST 16 (14-36) U/L ALT 7 (6-35) U/L Alkaline Phosphatase 74 (38-126) U/L Troponin I < 0.012 Total Protein 7.0 (6.3-8.2) g/dL Albumin 3.5 (3.5-5.1) g/dL Lipase 26 (23-300) U/L <Macey Collazo PA-C - Last Filed: 03/12/24 17:54> Lab Results 03/07/24 03/07/24 03/07/24 Range/Units 18:25 21:28 21:28 WBC 5.8 (4.5-10.0) K/mm3 RBC 3.90 L (4.2-5.4) M/mm3 Hgb 9.6 L (12.0-15.0) g/dL Hct 31.6 L (37.0-47.0) % MCV 81.0 (80-100) fl MCH 24.6 L (26-34) pg MCHC 30.4 L (32-36) g/dl RDW 15.1 H (11.5-14.5) % Plt Count 264 (150-375) k/mm3 MPV 11.2 H (7.4-10.4) fl Immature Gran % (Auto) 0.7 H (0-0.5) % Neut % (Auto) 76.1 H (45.5-73.1) % Lymph % (Auto) 18.2 L (18.3-44.2) % [place] % (Auto) 4.3 (2.6-8.5) % Eos % (Auto) 0.5 (0-4.4) % Baso % (Auto) 0.2 (0.2-1.2) % Lymph # (Auto) 1.05 (0.9-3.2) K/mm3 [place] # (Auto) 0.3 (0.1-0.6) K/mm3 Eos # (Auto) 0.0 (0-0.3) K/mm3 Baso # (Auto) 0.0 (0.0-0.1) K/mm3 Abs Immat Gran (auto) 0.04 H (0.00-0.031) K/mm3 Absolute Neuts (auto) 4.4 (1.3-6.7) K/mm3 Absolute Nucleated RBC 0.000 (0.0-0.012) K/mm3 Nucleated RBC % 0.0 (0.0-0.2) % PT 15.5 H (11.1-14.7) Seconds INR 1.2 APTT 28.9 (22.3-36.8) Seconds Sodium 140 Cancelled (137-145) mmol/L Potassium 3.7 (3.4-5.0) mmol/L Chloride (98-107) mmol/L Carbon Dioxide (22-30) mmol/L Anion Gap (4-12) mmol/L BUN (7-17) mg/dL Creatinine (0.7-1.0) mg/dL Estim Creat Clear Calc ml/min Estimated GFR (59 - ) Glucose (65-110) mg/dL Calcium (8.4-10.2) mg/dL Magnesium (1.6-2.3) mg/dL Total Bilirubin (0.2-1.3) mg/dL AST (14-36) U/L ALT (6-35) U/L Alkaline Phosphatase (38-126) U/L Troponin I Cancelled Total Protein (6.3-8.2) g/dL Albumin (3.5-5.1) g/dL Lipase (23-300) U/L 03/07/24 03/07/24 03/07/24 Range/Units 21:28 21:28 21:28 WBC (4.5-10.0) K/mm3 RBC (4.2-5.4) M/mm3 Hgb (12.0-15.0) g/dL Hct (37.0-47.0) % MCV (80-100) fl MCH (26-34) pg MCHC (32-36) g/dl RDW (11.5-14.5) % Plt Count (150-375) k/mm3 MPV (7.4-10.4) fl Immature Gran % (Auto) (0-0.5) % Neut % (Auto) (45.5-73.1) % Lymph % (Auto) (18.3-44.2) % [place] % (Auto) (2.6-8.5) % Eos % (Auto) (0-4.4) % Baso % (Auto) (0.2-1.2) % Lymph # (Auto) (0.9-3.2) K/mm3 [place] # (Auto) (0.1-0.6) K/mm3 Eos # (Auto) (0-0.3) K/mm3 Baso # (Auto) (0.0-0.1) K/mm3 Abs Immat Gran (auto) (0.00-0.031) K/mm3 Absolute Neuts (auto) (1.3-6.7) K/mm3 Absolute Nucleated RBC (0.0-0.012) K/mm3 Nucleated RBC % (0.0-0.2) % PT (11.1-14.7) Seconds INR APTT (22.3-36.8) Seconds Sodium (137-145) mmol/L Potassium Cancelled (3.4-5.0) mmol/L Chloride 109 H Cancelled (98-107) mmol/L Carbon Dioxide 29 Cancelled (22-30) mmol/L Anion Gap 2 L (4-12) mmol/L BUN (7-17) mg/dL Creatinine (0.7-1.0) mg/dL Estim Creat Clear Calc ml/min Estimated GFR (59 - ) Glucose (65-110) mg/dL Calcium (8.4-10.2) mg/dL Magnesium (1.6-2.3) mg/dL Total Bilirubin (0.2-1.3) mg/dL AST (14-36) U/L ALT (6-35) U/L Alkaline Phosphatase (38-126) U/L Troponin I Total Protein (6.3-8.2) g/dL Albumin (3.5-5.1) g/dL Lipase (23-300) U/L 03/07/24 03/07/24 03/07/24 Range/Units 21:28 21:28 21:28 WBC (4.5-10.0) K/mm3 RBC (4.2-5.4) M/mm3 Hgb (12.0-15.0) g/dL Hct (37.0-47.0) % MCV (80-100) fl MCH (26-34) pg MCHC (32-36) g/dl RDW (11.5-14.5) % Plt Count (150-375) k/mm3 MPV (7.4-10.4) fl Immature Gran % (Auto) (0-0.5) % Neut % (Auto) (45.5-73.1) % Lymph % (Auto) (18.3-44.2) % [place] % (Auto) (2.6-8.5) % Eos % (Auto) (0-4.4) % Baso % (Auto) (0.2-1.2) % Lymph # (Auto) (0.9-3.2) K/mm3 [place] # (Auto) (0.1-0.6) K/mm3 Eos # (Auto) (0-0.3) K/mm3 Baso # (Auto) (0.0-0.1) K/mm3 Abs Immat Gran (auto) (0.00-0.031) K/mm3 Absolute Neuts (auto) (1.3-6.7) K/mm3 Absolute Nucleated RBC (0.0-0.012) K/mm3 Nucleated RBC % (0.0-0.2) % PT (11.1-14.7) Seconds INR APTT (22.3-36.8) Seconds Sodium (137-145) mmol/L Potassium (3.4-5.0) mmol/L Chloride (98-107) mmol/L Carbon Dioxide (22-30) mmol/L Anion Gap Cancelled (4-12) mmol/L BUN 18 H Cancelled (7-17) mg/dL Creatinine 0.90 Cancelled (0.7-1.0) mg/dL Estim Creat Clear Calc 64 ml/min Estimated GFR (59 - ) Glucose (65-110) mg/dL Calcium (8.4-10.2) mg/dL Magnesium (1.6-2.3) mg/dL Total Bilirubin (0.2-1.3) mg/dL AST (14-36) U/L ALT (6-35) U/L Alkaline Phosphatase (38-126) U/L Troponin I Total Protein (6.3-8.2) g/dL Albumin (3.5-5.1) g/dL Lipase (23-300) U/L 03/07/24 03/07/24 03/07/24 Range/Units 21:28 21:28 21:28 WBC (4.5-10.0) K/mm3 RBC (4.2-5.4) M/mm3 Hgb (12.0-15.0) g/dL Hct (37.0-47.0) % MCV (80-100) fl MCH (26-34) pg MCHC (32-36) g/dl RDW (11.5-14.5) % Plt Count (150-375) k/mm3 MPV (7.4-10.4) fl Immature Gran % (Auto) (0-0.5) % Neut % (Auto) (45.5-73.1) % Lymph % (Auto) (18.3-44.2) % [place] % (Auto) (2.6-8.5) % Eos % (Auto) (0-4.4) % Baso % (Auto) (0.2-1.2) % Lymph # (Auto) (0.9-3.2) K/mm3 [place] # (Auto) (0.1-0.6) K/mm3 Eos # (Auto) (0-0.3) K/mm3 Baso # (Auto) (0.0-0.1) K/mm3 Abs Immat Gran (auto) (0.00-0.031) K/mm3 Absolute Neuts (auto) (1.3-6.7) K/mm3 Absolute Nucleated RBC (0.0-0.012) K/mm3 Nucleated RBC % (0.0-0.2) % PT (11.1-14.7) Seconds INR APTT (22.3-36.8) Seconds Sodium (137-145) mmol/L Potassium (3.4-5.0) mmol/L Chloride (98-107) mmol/L Carbon Dioxide (22-30) mmol/L Anion Gap (4-12) mmol/L BUN (7-17) mg/dL Creatinine (0.7-1.0) mg/dL Estim Creat Clear Calc Cancelled ml/min Estimated GFR > 60 Cancelled (59 - ) Glucose 95 Cancelled (65-110) mg/dL Calcium 8.7 (8.4-10.2) mg/dL Magnesium (1.6-2.3) mg/dL Total Bilirubin (0.2-1.3) mg/dL AST (14-36) U/L ALT (6-35) U/L Alkaline Phosphatase (38-126) U/L Troponin I Total Protein (6.3-8.2) g/dL Albumin (3.5-5.1) g/dL Lipase (23-300) U/L 03/07/24 03/07/24 Range/Units 21:28 21:28 WBC (4.5-10.0) K/mm3 RBC (4.2-5.4) M/mm3 Hgb (12.0-15.0) g/dL Hct (37.0-47.0) % MCV (80-100) fl MCH (26-34) pg MCHC (32-36) g/dl RDW (11.5-14.5) % Plt Count (150-375) k/mm3 MPV (7.4-10.4) fl Immature Gran % (Auto) (0-0.5) % Neut % (Auto) (45.5-73.1) % Lymph % (Auto) (18.3-44.2) % [place] % (Auto) (2.6-8.5) % Eos % (Auto) (0-4.4) % Baso % (Auto) (0.2-1.2) % Lymph # (Auto) (0.9-3.2) K/mm3 [place] # (Auto) (0.1-0.6) K/mm3 Eos # (Auto) (0-0.3) K/mm3 Baso # (Auto) (0.0-0.1) K/mm3 Abs Immat Gran (auto) (0.00-0.031) K/mm3 Absolute Neuts (auto) (1.3-6.7) K/mm3 Absolute Nucleated RBC (0.0-0.012) K/mm3 Nucleated RBC % (0.0-0.2) % PT (11.1-14.7) Seconds INR APTT (22.3-36.8) Seconds Sodium (137-145) mmol/L Potassium (3.4-5.0) mmol/L Chloride (98-107) mmol/L Carbon Dioxide (22-30) mmol/L Anion Gap (4-12) mmol/L BUN (7-17) mg/dL Creatinine (0.7-1.0) mg/dL Estim Creat Clear Calc ml/min Estimated GFR (59 - ) Glucose (65-110) mg/dL Calcium Cancelled (8.4-10.2) mg/dL Magnesium 2.0 Cancelled (1.6-2.3) mg/dL Total Bilirubin 0.5 (0.2-1.3) mg/dL AST 16 (14-36) U/L ALT 7 (6-35) U/L Alkaline Phosphatase 74 (38-126) U/L Troponin I < 0.012 Total Protein 7.0 (6.3-8.2) g/dL Albumin 3.5 (3.5-5.1) g/dL Lipase 26 (23-300) U/L <Vj Tsang MD - Last Filed: 03/07/24 21:59> Imaging Data Radiologist's impression: ITS Impressions Chest X-Ray 03/07/24 15:20 IMPRESSION: 1. No acute cardiopulmonary disease. <Macey Collazo PA-C - Last Filed: 03/12/24 17:54> ECG Data EKG #1: ECG completion date: 03/07/24 <Vj Tsang MD - Last Filed: 03/07/24 21:59> ECG completion time: 15:03 <Vj Tsang MD - Last Filed: 03/07/24 21:59> EKG Interpretation: normal rate (72), sinus rhythm, no ectopy, no ST changes, normal QRS and normal QT <Vj Tsang MD - Last Filed: 03/07/24 21:59> Critical Care Time Critical Care Time Critical Care Time: No <Macey Collazo PA-C - Last Filed: 03/12/24 17:54> Discharge Plan Discharge Clinical Impression: Heart palpitations <Macey Collazo PA-C - Last Filed: 03/12/24 17:54> Patient Disposition: Home, Self-Care <Macey Collazo PA-C - Last Filed: 03/12/24 17:54> Condition: Stable <Macey Collazo PA-C - Last Filed: 03/12/24 17:54> Instructions: Antibiotic Form, Heart Palpitations (ED) <JESSIE Mcallister Last Filed: 03/12/24 17:54> Patient Language: Tajik <Macey Collazo PA-C - Last Filed: 03/12/24 17:54> Prescriptions: No Action methadone 190 mg PO DAILY Patient Comments: [facility] NURSE DARIUS CONFIRMED DOSE STATED BY PT [phone] (DME) blood pressure monitor [Blood Pressure Kit] Kit See Rx Instructions .Route Qty: 1 0RF Rx Instructions: As directed famotidine [Pepcid] 20 mg Tablet 20 mg PO BID PRN (Reason: Stomach Upset) promethazine 25 mg tablet 25 mg PO TID PRN (Reason: nausea and vomiting) Qty: 14 0RF doxycycline hyclate 100 mg capsule 100 mg PO BID 7 Days Qty: 14 0RF hydroxyzine pamoate [Vistaril] 25 mg capsule 25 mg PO BID PRN (Reason: nausea and vomiting) Qty: 14 0RF <Macey Collazo PA-C - Last Filed: 03/12/24 17:54> Follow-up/Referrals: [facility] [Other] <Macey Collazo PA-C - Last Filed: 03/12/24 17:54> Time of Disposition: 21:58 <Macey Collazo PA-C - Last Filed: 03/12/24 17:54> 21:58 <Vj Tsang MD - Last Filed: 03/07/24 21:59>
--- NOTE | 2024-03-07 17:44 | PC.NURSE ---
pt has wounds to bilateral upper arms. pt states she sees wound care for them, wounds are due to pt's drug use. pt states she used prior to coming to the ED.
[2024-03-07 18:33] LABS: Basophils Percent Auto 0.2 % (0.2-1.2); Eosinophils Percent Auto 0.5 % (0-4.4); Hematocrit 31.6 % (37.0-47.0); Hemoglobin 9.6 g/dL (12.0-15.0); Immature Granulocyte Absolute 0.04 K/mm3 (0.00-0.031); Immature Granulocyte Percent A 0.7 % (0-0.5); Lymphocytes Absolute Auto 1.05 K/mm3 (0.9-3.2); Lymphocytes Percent Auto 18.2 % (18.3-44.2); Mean Corpuscular HGB Conc 30.4 g/dl (32-36); Mean Corpuscular Hemoglobin 24.6 pg (26-34); Mean Platelet Volume 11.2 fl (7.4-10.4); Monocytes Absolute Auto 0.3 K/mm3 (0.1-0.6); Monocytes Percent Auto 4.3 % (2.6-8.5); Neutrophils Absolute Auto 4.4 K/mm3 (1.3-6.7); Neutrophils Percent Auto 76.1 % (45.5-73.1); Platelet Count Result 264 k/mm3 (150-375); Red Cell Distribution Width 15.1 % (11.5-14.5); White Blood Count 5.8 K/mm3 (4.5-10.0)
[2024-03-07 19:34] VITALS: BP 142/95; PULSE 50; RESP 12; O2SAT 100
--- NOTE | 2024-03-07 19:35 | PC.NURSE ---
ED Charge called micro computer specialist to obtain lab work.
[2024-03-07 21:48] LABS: INR 1.2; Partial Thromboplastin Time 28.9 Seconds (22.3-36.8); Prothrombin Time 15.5 Seconds (11.1-14.7)
[2024-03-07 21:49] LABS: Alanine Aminotransferase 7 U/L (6-35); Albumin Level 3.5 g/dL (3.5-5.1); Alkaline Phosphatase 74 U/L (38-126); Anion Gap 2 mmol/L (4-12); Aspartate Amino Transferase 16 U/L (14-36); Bilirubin,Total 0.5 mg/dL (0.2-1.3); Blood Urea Nitrogen 18 mg/dL (7-17); Calcium 8.7 mg/dL (8.4-10.2); Carbon Dioxide 29 mmol/L (22-30); Chloride 109 mmol/L (98-107); Estimated CRCL calculation 64 ml/min; Estimated Glomerular Filt Rate > 60; Glucose 95 mg/dL (65-110); Lipase 26 U/L (23-300); Potassium 3.7 mmol/L (3.4-5.0); Sodium 140 mmol/L (137-145)
[2024-03-07 22:00] VITALS: PULSE 65; RESP 12; O2SAT 98
[2024-03-07 22:01] LABS: Troponin I < 0.012 ng/mL (0.000-0.034)
[2024-03-07 22:40] VITALS: PULSE 88; RESP 20; O2SAT 99
== END 2024-03-07 22:57 | disposition home or self-care (01) ==
PROVIDERS: Physician Assistant; Emergency Provider Family Medicine
DX: R00.2 Palpitations (principal); I10 Essential (primary) hypertension; Z90.710 Acquired absence of both cervix and uterus
CPT/HCPCS: 36415; 71046; 80053; 83690; 83735; 84484; 85025; 85610; 85730; 93005; 99284

== ENCOUNTER 2024-03-09 15:48 | Emergency (ER) | payer OTHER, SELFPAY ==
--- NOTE | ~2024-03-09 | XR_ITS ---
EXAMINATION: XR chest 2V DATE: 03/09/2024 16:30 INDICATION: Shortness of breath. Chest pain. TECHNIQUE: Frontal and lateral views of the chest were obtained. COMPARISON: Chest 2 views 03/07/2024 FINDINGS: There is no pneumonia, pleural effusion, or pneumothorax. The heart size is normal. IMPRESSION: 1. No acute cardiopulmonary disease. Reviewed, dictated and finalized at location A. [facility]
--- NOTE | 2024-03-09 15:50 | ECG_ITS ---
Test Date: 2024-03-09 18:59:04 Measurements Intervals [place] Rate: 68 P: 8 UT: 168 QRS: 11 QRSD: 90 T: 7 QT: 435 QTc: 466 Interpretive Statements SINUS RHYTHM Compared to ECG 03/07/2024 15:03:29 No significant changes Electronically Signed On 03-10-2024 12:59:10 [employer] by Romelia Kruse M.D.
[2024-03-09 15:58] VITALS: BP 168/98; PULSE 90; RESP 20; TEMP 36.3; O2SAT 99
[2024-03-09] MEDS: ASPIRIN 81 MG CHEWABLE TABLET 324 MG PO (16:43)
--- NOTE | 2024-03-09 16:59 | ED_ITS ---
HPI - General Adult General Chief complaint: Chest Pain Stated complaint: chest pain Time Seen by Provider: 03/09/24 16:31 History of Present Illness HPI narrative: patient is a 43-year-old female who presents ER with reports of chest pain. So she was shortness of breath and palpitations over last 2 days. Reports she last used opiates this morning when she skin pops. 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 No fevers or chills. No new skin issues. She does have an area on her left arm that she has been seeing wound care for but she has no concerns at this time. Mild nausea/reflux. Poor fluid intake over last couple days. Related Data Home Medications ?Medication ?Instructions ?Recorded ?Confirmed ?Last Taken ?Type methadone 190 mg PO DAILY 02/03/21 06/30/22 02/02/21 History famotidine 20 mg tablet (Pepcid) 20 mg PO BID PRN Stomach Upset 06/30/22 06/30/22 Unknown History Allergies Allergy/AdvReac Type Severity Reaction Status Date / Time methadone Allergy Severe Other Verified 03/09/24 15:51 amoxicillin Allergy Mild Rash Verified 03/09/24 15:51 clindamycin Allergy Mild Rash Verified 03/09/24 15:51 sumatriptan Allergy Mild ANAPHALAXIS, Verified 03/09/24 15:51 WHEEZING Sulfa (Sulfonamide AdvReac Hives Verified 03/09/24 15:51 Antibiotics) Review of Systems 2 Review of Systems: All systems reviewed & are unremarkable except as noted in HPI and below Constitutional: Constitutional: Denies chills, Reports fatigue and Denies fever(s) ENT: Reports system reviewed and no additional complaints, except as documented Cardiovascular: Cardiovascular: Reports chest pain, Denies rapid heart rate and Denies radiating jaw, neck or arm pain Respiratory: Respiratory: Reports no additional respiratory complaints Gastrointestinal: Gastrointestinal: Denies abdominal pain, Reports heartburn, Reports nausea and Denies vomiting PMFSH Past Medical History Medical History Bipolar disorder Depression Anxiety Opioid abuse Hypertension Surgical History Surgical History History of tubal ligation History of hysterectomy Family History Family History Mother Atrial fibrillation Social History Social History Social History: Surrogate medical decision maker: Maria L Cuevas, mother. Code status: Full code. Smoking status: Never smoker Alcohol intake: never Substance use: former Substance use type: heroin, opiates, painkillers and IV drugs Other substance usage details: fentanyl Last use: 06/29/22 Lack of Transportation: No Lack of Food: Never True Current Housing: I Have Housing Concerned About Future Housing: No Difficulty Paying Gas/Electric Bills: No Difficulty Paying for Meds: No Currently Unemployed: No Education: Associate Degree Difficulty w/ Childcare or Family Care: No Additional living arrangements comments: Lives in [place]. with 3 children. Spiritual care concerns: No Exam 2 Narrative: GENERAL: Well-appearing, well-nourished, and in no acute distress. HEAD: Normocephalic, atraumatic. ENT: Mucous membranes moist. NECK: Supple. CHEST: Clear to auscultation. No respiratory distress. HEART: Regular rate and rhythm. Normal peripheral pulses. ABDOMEN: Soft, nontender, nondistended. EXTREMITIES: Normal range of motion. No edema. SKIN: Warm, dry, no rash. NEURO: Alert and oriented x3. PSYCH: Normal mood and affect. Course Course Emergency Course: Very mild hypokalemia and anemia. Troponin negative x2. Hydrated and given antiemetics. Appropriate for discharge. Vital Signs Vital signs: Vital Signs Temperature 97.4 F L 03/09/24 15:58 Pulse Rate 90 03/09/24 15:58 Respiratory Rate 20 03/09/24 15:58 Blood Pressure 168/98 H 03/09/24 15:58 Pulse Oximetry 99 03/09/24 15:58 Oxygen Delivery Room Air 03/09/24 15:58 Temperature 98.2 F 03/09/24 18:24 Pulse Rate 66 03/09/24 20:25 Respiratory Rate 13 03/09/24 20:25 Blood Pressure 142/93 H 03/09/24 20:25 Pulse Oximetry 100 03/09/24 20:25 Oxygen Delivery Room Air 03/09/24 15:58 Medical Decision Making Vital Signs Vital Signs: Vital Signs Temperature 97.4 F L 12/13/24 15:58 Pulse Rate 90 03/09/24 15:58 Respiratory Rate 20 03/09/24 15:58 Blood Pressure 168/98 H 03/09/24 15:58 Pulse Oximetry 99 03/09/24 15:58 Oxygen Delivery Room Air 03/09/24 15:58 Temperature 98.2 F 03/09/24 18:24 Pulse Rate 66 03/09/24 20:25 Respiratory Rate 13 03/09/24 20:25 Blood Pressure 142/93 H 03/09/24 20:25 Pulse Oximetry 100 03/09/24 20:25 Oxygen Delivery Room Air 03/09/24 15:58 Lab Data 03/09/24 17:12 03/09/24 17:12 Labs: Lab Results 03/09/24 03/09/24 Range/Units 17:12 19:04 WBC 7.1 (4.5-10.0) K/mm3 RBC 3.70 L (4.2-5.4) M/mm3 Hgb 9.0 L (12.0-15.0) g/dL Hct 29.4 L (37.0-47.0) % MCV 79.5 L (80-100) fl MCH 24.3 L (26-34) pg MCHC 30.6 L (32-36) g/dl RDW 15.1 H (11.5-14.5) % Plt Count 289 (150-375) k/mm3 MPV 10.5 H (7.4-10.4) fl Immature Gran % (Auto) 0.4 (0-0.5) % Neut % (Auto) 81.1 H (45.5-73.1) % Lymph % (Auto) 13.9 L (18.3-44.2) % Rapides % (Auto) 4.4 (2.6-8.5) % Eos % (Auto) 0.1 (0-4.4) % Baso % (Auto) 0.1 L (0.2-1.2) % Lymph # (Auto) 0.98 (0.9-3.2) K/mm3 [place] # (Auto) 0.3 (0.1-0.6) K/mm3 Eos # (Auto) 0.0 (0-0.3) K/mm3 Baso # (Auto) 0.0 (0.0-0.1) K/mm3 Abs Immat Gran (auto) 0.03 (0.00-0.031) K/mm3 Absolute Neuts (auto) 5.7 (1.3-6.7) K/mm3 Absolute Nucleated RBC 0.000 (0.0-0.012) K/mm3 Nucleated RBC % 0.0 (0.0-0.2) % PT 15.0 H (11.1-14.7) Seconds INR 1.2 APTT 23.3 (22.3-36.8) Seconds Sodium 141 (137-145) mmol/L Potassium 3.3 L (3.4-5.0) mmol/L Chloride 107 (98-107) mmol/L Carbon Dioxide 31 H (22-30) mmol/L Anion Gap 3 L (4-12) mmol/L BUN 18 H (7-17) mg/dL Creatinine 0.90 (0.7-1.0) mg/dL Estim Creat Clear Calc 64 ml/min Estimated GFR > 60 (59 - ) Glucose 123 H (65-110) mg/dL Calcium 8.6 (8.4-10.2) mg/dL Total Bilirubin 0.7 (0.2-1.3) mg/dL AST 18 (14-36) U/L ALT 8 (6-35) U/L Alkaline Phosphatase 78 (38-126) U/L Troponin I < 0.012 < 0.012 (0.000-0.034) ng/mL Total Protein 7.0 (6.3-8.2) g/dL Albumin 3.7 (3.5-5.1) g/dL Lipase 24 (23-300) U/L Imaging Data Radiologist's impression: ITS Impressions Chest X-Ray 03/09/24 16:30 IMPRESSION: 1. No acute cardiopulmonary disease. ECG Data EKG #1: ECG completion date: 03/09/24 ECG completion time: 20:25 EKG Interpretation: normal rate (68), sinus rhythm, non-specific ST changes, normal QRS, normal QT and NL axis Discharge Plan Discharge Clinical Impression: Nausea & vomiting, Dehydration Patient Disposition: Home, Self-Care Condition: Stable Instructions: Acute Nausea and Vomiting (ED) Additional Instructions: Return to the emergency department if you develop severe abdominal pain, severe nausea and vomiting to the point where you are unable to keep down fluids, if you develop chest pain or difficulty breathing, blood in your stool, dizziness or fainting, or if you develop any other new or concerning symptoms as these could be signs of more serious medical illness. Try to stay well hydrated. Patient Language: Somali Prescriptions: New promethazine 25 mg tablet 25 mg PO TID PRN (Reason: nausea and vomiting) Qty: 14 0RF No Action methadone 190 mg PO DAILY Patient Comments: [facility] NURSE DARIUS CONFIRMED DOSE STATED BY PT [phone] (DME) blood pressure monitor [Blood Pressure Kit] Kit See Rx Instructions .Route Qty: 1 0RF Rx Instructions: As directed famotidine [Pepcid] 20 mg Tablet 20 mg PO BID PRN (Reason: Stomach Upset) doxycycline hyclate 100 mg capsule 100 mg PO BID 7 Days Qty: 14 0RF hydroxyzine pamoate [Vistaril] 25 mg capsule 25 mg PO BID PRN (Reason: nausea and vomiting) Qty: 14 0RF Follow-up/Referrals: Gasper Birch MD [Physician] - 1 Week UNKNOWN,DOCTOR [Primary Care Provider] -
[2024-03-09 17:00] VITALS: BP 145/84; PULSE 73; RESP 20; O2SAT 100
[2024-03-09] MEDS: SODIUM CHLORIDE 0.9% IV 1,000 ML 999 ML IV CONT (17:11)
[2024-03-09] MEDS: PROMETHAZINE HCL 25 MG/ML AMPUL 12.5 MG IV PUSH (17:16)
[2024-03-09 17:17] LABS: Basophils Percent Auto 0.1 % (0.2-1.2); Eosinophils Percent Auto 0.1 % (0-4.4); Hematocrit 29.4 % (37.0-47.0); Immature Granulocyte Absolute 0.03 K/mm3 (0.00-0.031); Immature Granulocyte Percent A 0.4 % (0-0.5); Lymphocytes Absolute Auto 0.98 K/mm3 (0.9-3.2); Lymphocytes Percent Auto 13.9 % (18.3-44.2); Mean Corpuscular HGB Conc 30.6 g/dl (32-36); Mean Corpuscular Hemoglobin 24.3 pg (26-34); Mean Corpuscular Volume 79.5 fl (80-100); Mean Platelet Volume 10.5 fl (7.4-10.4); Monocytes Absolute Auto 0.3 K/mm3 (0.1-0.6); Monocytes Percent Auto 4.4 % (2.6-8.5); Neutrophils Absolute Auto 5.7 K/mm3 (1.3-6.7); Neutrophils Percent Auto 81.1 % (45.5-73.1); Platelet Count Result 289 k/mm3 (150-375); Red Cell Distribution Width 15.1 % (11.5-14.5); White Blood Count 7.1 K/mm3 (4.5-10.0)
[2024-03-09 17:29] LABS: Alanine Aminotransferase 8 U/L (6-35); Albumin Level 3.7 g/dL (3.5-5.1); Alkaline Phosphatase 78 U/L (38-126); Anion Gap 3 mmol/L (4-12); Aspartate Amino Transferase 18 U/L (14-36); Bilirubin,Total 0.7 mg/dL (0.2-1.3); Blood Urea Nitrogen 18 mg/dL (7-17); Calcium 8.6 mg/dL (8.4-10.2); Carbon Dioxide 31 mmol/L (22-30); Chloride 107 mmol/L (98-107); Estimated CRCL calculation 64 ml/min; Estimated Glomerular Filt Rate > 60; Glucose 123 mg/dL (65-110); Lipase 24 U/L (23-300); Potassium 3.3 mmol/L (3.4-5.0); Sodium 141 mmol/L (137-145)
[2024-03-09 17:40] LABS: Troponin I < 0.012 ng/mL (0.000-0.034)
[2024-03-09 17:47] LABS: INR 1.2
[2024-03-09 17:48] LABS: Partial Thromboplastin Time 23.3 Seconds (22.3-36.8)
[2024-03-09 18:24] VITALS: BP 134/83; PULSE 63; PULSE 68; RESP 18; TEMP 36.8; O2SAT 100
[2024-03-09 19:29] LABS: Troponin I < 0.012 ng/mL (0.000-0.034)
[2024-03-09 20:25] VITALS: BP 142/93; PULSE 66; RESP 13; O2SAT 100
[2024-03-09 21:19] VITALS: BP 169/98; PULSE 83; RESP 12; O2SAT 100
--- OUTSIDE RECORDS SUMMARY | 2024-03-13 02:07 | XMS_ITS | Encounter Summary ---
Author Organization [facility] Address [address] [place] [address]. [place], [place] [address] [place] [address] Care Team Providers Care Budget Report Clerk Name Role Phone Maritza Lorenzo MD Primary Care Provider Maritza Lorenzo MD Primary Care Provider Maritza Lorenzo MD Primary Care Provider Encounter Details Date Type Department Care Team (Late st Contact Info) Description 11/07/2012 Abstract [facility]Surgical [address] [place], [place] [id number] Micheal Do MD Social History Tobacco Use Types Packs/Day Years Used Date Smoking Tobacco: Never Assessed AUDIT-C Answer Date Recorded Frequency of Alcohol Consumption Never 10/01/2018 Average Number of Drinks Not on file 019 Frequency of Binge Drinking Not on file 09/2018 Comments Unknown Sex and Gender Information Value Date Recorded Sex Assigned at Not on file Legal Sex Female 2:09 PM CDT Gender Identity Not on file Sexual Orientation Not on file documented as of this encounter Plan of Treatment Not on file documented as of this encounter Visit Diagnoses Not on filedocumented in this encounter Care Teams Budget Report Clerk Relationship Specialty Start Date End Date Maritza Lorenzo MD [address] [place], [place] [id number] PCP - General 12/18/15 Maritza Lorenzo MD [address] [place] [address] PCP - General 01/03/15 12/17/15 Mairtza Lorenzo MD [address] [place] [address] PCP - General 02/10/14 01/02/15 documented as of this encounter
--- OUTSIDE RECORDS SUMMARY | 2024-03-13 02:07 | XMS_ITS | Encounter Summary ---
Author Organization [facility] Address [address] [place] [address]. [place], [place] [address] [place] [address] Care Team Providers Care Fruit Or Nut Farmer Name Role Phone Maritza Lorenzo MD Primary Care Provider Maritza Lorenzo MD Primary Care Provider Maritza Lorenzo MD Primary Care Provider Encounter Details Date Type Department Care Team (Late st Contact Info) Description 09/21/1999 Abstract [place] [address] , Generic MD Benigno Social History Tobacco Use Types Packs/Day Years Used Date Smoking Tobacco: Never Assessed Comments Unknown Sex and Gender Information Value Date Recorded Sex Assigned at Not on file Legal Sex Female 2:09 PM CDT Gender Identity Not on file Sexual Orientation Not on file documented as of this encounter Plan of Treatment Not on file documented as of this encounter Visit Diagnoses Not on filedocumented in this encounter Care Teams Fruit Or Nut Farmer Relationship Specialty Start Date End Date Maritza Lorenzo MD [address] [place] [address] PCP - General 12/18/15 Maritza Lorenzo MD [address] [place] [address] PCP - General 01/03/15 12/17/15 Maritza Lorenzo MD [address] [place] [address] PCP - General 02/10/14 01/02/15 documented as of this encounter
--- OUTSIDE RECORDS SUMMARY | 2024-03-13 02:07 | XMS_ITS | Encounter Summary ---
Author Organization [facility] Address [address] [place] [address]. [place], [place] [address] [place] [address] Care Team Providers Care Hot Strip Mill Supervisor Name Role Phone Maritza Lorenzo MD Primary Care Provider Maritza Lorenzo MD Primary Care Provider Maritza Lorenzo MD Primary Care Provider Encounter Details Date Type Department Care Team (Late st Contact Info) Description 05/16/2013 Abstract [facility] Medical/Surgical [address] [place], [place] [phone] Micheal Do MD Social History Tobacco Use [...] on filedocumented in this encounter Care Teams Hot Strip Mill Supervisor Relationship Specialty Start Date End Date Maritza Lorenzo MD [address] [place], [place] [id number] PCP - General 12/18/15 Maritza Lorenzo MD [address] [place] [address] PCP - General 01/03/15 12/17/15 Maritza Lorenzo MD [address] [place] [address] PCP - General 02/10/14 01/02/15 documented as of this encounter
--- OUTSIDE RECORDS SUMMARY | 2024-03-13 02:07 | XMS_ITS | Encounter Summary ---
Author Organization [facility] Address [address] [place] [address]. [place], [place] [address] [place] [address] Care Team Providers Care Fine Wire Drawer Name Role Phone Maritza Lorenzo MD Primary Care Provider Maritza Lorenzo MD Primary Care Provider Maritza Lorenzo MD Primary Care Provider Encounter Details Date Type Department Care Team (Late st Contact Info) Description 10/05/1999 Abstract [place] [address] , Generic MD Benigno Social History Tobacco [...] on filedocumented in this encounter Care Teams Fine Wire Drawer Relationship Specialty Start Date End Date Maritza Lorenzo MD [address] [place] [address] PCP - General 12/18/15 Maritza Lorenzo MD [address] [place] [address] PCP - General 01/03/15 12/17/15 Maritza Lorenzo MD [address] [place] [address] PCP - General 02/10/14 01/02/15 documented as of this encounter
--- OUTSIDE RECORDS SUMMARY | 2024-03-13 02:07 | XMS_ITS | Encounter Summary ---
Author Organization [facility] Address [address] [place] [address]. [place], [place] [address] [place] [address] Care Team Providers Care Link Trainer Mechanic Name Role Phone Maritza Lorenzo MD Primary Care Provider Maritza Lorenzo MD Primary Care Provider Maritza Lorenzo MD Primary Care Provider Encounter Details Date Type Department Care Team (Late st Contact Info) Description 02/10/2014 Abstract [facility] Emergency Room [address] [place], [place] [id number] Micheal Do MD Social History Tobacco Use [...] documented as of this encounter Visit Diagnoses Diagnosis Acute renal failure (CMS/HCC) Acute kidney failure, unspecified documented in this encounter Care Teams Link Trainer Mechanic Relationship Specialty Start Date End Date Maritza Lorenzo MD [address] [place] [address] PCP - General 12/18/15 Maritza Lorenzo MD [address] [place] [address] PCP - General 01/03/15 12/17/15 Maritza Lorenzo MD [address] [place] [address] PCP - General 02/10/14 01/02/15 documented as of this encounter
--- OUTSIDE RECORDS SUMMARY | 2024-03-13 02:07 | XMS_ITS | Encounter Summary ---
Author Organization [facility] Address [address] [place] [address]. [place] [address] [place] [address] Care Team Providers Care Oracle Fusion Developer Name Role Phone Maritza Lorenzo MD Primary Care Provider Maritza Lorenzo MD Primary Care Provider Maritza Lorenzo MD Primary Care Provider Encounter Details Date Type Department Care Team (Late st Contact Info) Description 05/11/2002 Emergency [facility] [place] [address] Micheal Do MD Social History Tobacco Use [...] on filedocumented in this encounter Care Teams Oracle Fusion Developer Relationship Specialty Start Date End Date Maritza Lorenzo MD [address] [place] [address] PCP - General 12/18/15 Maritza Lorenzo MD [address] [place] [address] PCP - General 01/03/15 12/17/15 Maritza Lorenzo MD [address] [place] [address] PCP - General 02/10/14 01/02/15 documented as of this encounter
--- OUTSIDE RECORDS SUMMARY | 2024-03-13 02:07 | XMS_ITS | Encounter Summary ---
Author Organization [facility] Address [address] [place] [address]. [place] [address] [place] [address] Care Team Providers Care Clerical Support Specialist Name Role Phone Maritza Lorenzo MD Primary Care Provider Maritza Lorenzo MD Primary Care Provider Encounter Details Date Type Department Care Team (Late st Contact Info) Description 01/03/2015 Emergency [facility] [place] [address] Rigoberto Tao MD [address] [place] [id number] Social History Tobacco Use Types Packs/Day Years Used Date Smoking Tobacco: Never Assessed Comments Unknown Sex and Gender Information Value Date Recorded Sex Assigned at Not on file Legal Sex Female 2:09 PM CDT Gender Identity Not on file Sexual Orientation Not on file documented as of this encounter Plan of Treatment Not on file documented as of this encounter Visit Diagnoses Diagnosis Dorsalgia Pain in thoracic spine documented in this encounter Care Teams Clerical Support Specialist Relationship Specialty Start Date End Date Maritza Lorenzo MD [address] [place] [address] PCP - General 12/18/15 Maritza Lorenzo MD [address] [place] [address] PCP - General 01/03/15 12/17/15 documented as of this encounter
--- OUTSIDE RECORDS SUMMARY | 2024-03-13 02:07 | XMS_ITS | Encounter Summary ---
Author Organization [facility] Address [address] [place] [address]. [place], [place] [phone] [place] [address] Care Team Providers Care Management Intern Name Role Phone Maritza Lorenzo MD Primary Care Provider Maritza Lorenzo MD Primary Care Provider Maritza Lorenzo MD Primary Care Provider Encounter Details Date Type Department Care Team (Late st Contact Info) Description 07/12/2001 Emergency [facility] [place] [address] Carlos A Dobbs MD [facility] [place] [address] Social History Tobacco Use Types Packs/Day Years [...] on filedocumented in this encounter Care Teams Management Intern Relationship Specialty Start Date End Date Maritza Lorenzo MD [address] [place] [address] PCP - General 12/18/15 Maritza Lorenzo MD [address] [place] [address] PCP - General 01/03/15 12/17/15 Maritza Lorenzo MD [address] [place] [address] PCP - General 02/10/14 01/02/15 documented as of this encounter
--- OUTSIDE RECORDS SUMMARY | 2024-03-13 02:07 | XMS_ITS | Encounter Summary ---
Author Organization [facility] Address [address] [place] [address]. [place] [address] [place] [address] Care Team Providers Care Residency Director Name Role Phone Maritza oLrenzo MD Primary Care Provider Maritza Lorenzo MD Primary Care Provider Maritza Lorenzo MD Primary Care Provider Encounter Details Date Type Department Care Team (Late st Contact Info) Description 10/23/1999 Abstract [facility] Inf[facility] [address] [place], [place] [address] Micheal Do MD Social History Tobacco Use [...] on filedocumented in this encounter Care Teams Residency Director Relationship Specialty Start Date End Date Maritza Lorenzo MD [address] [place] [address] PCP - General 12/18/15 Maritza Lorenzo MD [address] [place] [address] PCP - General 01/03/15 12/17/15 Maritza Lorenzo MD [address] [place] [address] PCP - General 02/10/14 01/02/15 documented as of this encounter
--- OUTSIDE RECORDS SUMMARY | 2024-03-13 02:07 | XMS_ITS | Encounter Summary ---
Author Organization [facility] Address [address] [place] [address]. [place], [place] [address] [place] [address] Care Team Providers Care Software Project Manager Name Role Phone Maritza Lorenzo MD Primary Care Provider Maritza Lorenzo MD Primary Care Provider Maritza Lorenzo MD Primary Care Provider Encounter Details Date Type Department Care Team (Late st Contact Info) Description 09/25/2014 Abstract [facility] Medical/Surgical [address] [place], [place] [phone] Micheal Do MD Social History Tobacco Use [...] on filedocumented in this encounter Care Teams Software Project Manager Relationship Specialty Start Date End Date Maritza Lorenzo MD [address] [place], [place] [id number] PCP - General 12/18/15 Maritza Lorenzo MD [address] [place] [address] PCP - General 01/03/15 12/17/15 Maritza Lorenzo MD [address] [place] [address] PCP - General 02/10/14 01/02/15 documented as of this encounter
--- OUTSIDE RECORDS SUMMARY | 2024-03-13 02:07 | XMS_ITS | Encounter Summary ---
Author Organization [facility] Address [address] [place] [address]. [place], [place] [address] [place] [address] Care Team Providers Care Mortgage Lender Name Role Phone Maritza Lorenzo MD Primary Care Provider Maritza Lorenzo MD Primary Care Provider Maritza Lorenzo MD Primary Care Provider Encounter Details Date Type Department Care Team (Late st Contact Info) Description 06/13/1999 [place] [address] , Generic MD Benigno Social History Tobacco [...] on filedocumented in this encounter Care Teams Mortgage Lender Relationship Specialty Start Date End Date Maritza Lorenzo MD [address] [place] [address] PCP - General 12/18/15 Maritza Lorenzo MD [address] [place] [address] PCP - General 01/03/15 12/17/15 Maritza Lorenzo MD [address] [place] [address] PCP - General 02/10/14 01/02/15 documented as of this encounter
--- OUTSIDE RECORDS SUMMARY | 2024-03-13 02:07 | XMS_ITS | Encounter Summary ---
Author Organization [facility] Address [address] [place] [address]. [place], [place] [address] [place] [address] Care Team Providers Care Manager Commercial Name Role Phone Maritza Lorenzo MD Primary Care Provider Encounter Details Date Type Department Care Team (Late st Contact Info) Description 12/18/2015 Orders Only [facility] [address] [place] [phone] , Micheal Pelaez MD Social History Tobacco Use Types Packs/Day Years Used Date Smoking Tobacco: Never Assessed Comments Unknown Sex and Gender Information Value Date Recorded Sex Assigned at Not on file Legal Sex Female 2:09 PM CDT Gender Identity Not on file Sexual Orientation Not on file documented as of this encounter Plan of Treatment Not on file documented as of this encounter Procedures Procedure Name Priority Date/Time Associated Diagnosis Comments CARDIOLOGY GENERIC 12/18/2015 3: 09 PM CDT documented in this encounter Results * CARDIOLOGY GENERIC (12/18/2015 3:09 PM CDT) 12/18/2015 3:09 PM CDT Narrative [facility] - 12/18/2015 12:00 AM CDT ? MARGY SALDANA Ordering MD: BRISEYDA SULTANA MD ?? Acct: [id number] ?? Admit/Service Date: 12/18/15 Discharge Date: 12/18/15 ?? : 1980 Pt Type: DEP ER ?? Sex: F Ord Site: [facility] [place] ?[address], [place], [place] ?Test Date: ?2015-12-18 ?? Pat Name: ? MARGY SALDANA ?Department: CARD ?? 41 ? Room: ? Gender: ? Female ? Coat Padder: ?? amt ?? : ?1980 ? Requested By: BRISEYDA TREASTER BRISEYDA TREASTER ?? Order Number: [id number] ?Reading MD: ?? Amalia ??Maryuri ?Measurements ?? Intervals ?[place] ? Rate: ? 104 ?P: ?-1 ?? NJ: ? 118 ?QRS: ?6 ?? QRSD: ? 96 ? T: ?22 ?? QT: ? 284 ? QTc: ?375 ?Interpretive Statements ?? SINUS TACHYCARDIA WITH SHORT [place] INTERVAL ?? NONSPECIFIC T-WAVE ABNORMALITY ?? ABNORMAL RHYTHM ECG ?? Compared to ECG 02/11/2014 09:35:24 ?? Short [place] interval now present ?? Sinus rhythm no longer present ?? T-wave abnormality still present ?? No ischemic changes ?? Preliminary EKG interpretation by ED Physician ?? CRITICAL ALERT ISSUED ON 12-18-2015 15:12:03 ? Procedure Note Amalia Wahl MD - 12/19/2015 MARGY SALDANA Ordering MD: BRISEYDA SULTANA MD Acct: [id number] Admit/Service Date: 12/18/15 Discharge Date: 12/18/15 : 1980 Pt Type: DEP ER Sex: F Ord Site: [address] Test Date: 2015-12-18 Pat Name: MARGY SALDANA Department: CARD 41 Room: Gender: Female Coat Padder: amt : 1980 Requested By: BRISEYDA SULTANA Order Number: [id number] Reading MD: Amalia Wahl Measurements Intervals [place] Rate: 104 P: -1 NJ: 118 QRS: 6 QRSD: 96 T: 22 QT: 284 QTc: 375 Interpretive Statements SINUS TACHYCARDIA WITH SHORT NJ INTERVAL NONSPECIFIC T-WAVE ABNORMALITY ABNORMAL RHYTHM ECG Compared to ECG 02/11/2014 09:35:24 Short [place] interval now present Sinus rhythm no longer present T-wave abnormality still present No ischemic changes Preliminary EKG interpretation by ED Physician CRITICAL ALERT ISSUED ON 12-18-2015 15:12:03 us Generic Conversion Md [facility] Final Result [facility] documented in this encounter Visit Diagnoses Not on filedocumented in this encounter Care Teams Manager Commercial Relationship Specialty Start Date End Date Maritza Lorenzo MD [address] [place] [address] PCP - General 12/18/15 documented as of this encounter
--- OUTSIDE RECORDS SUMMARY | 2024-03-13 02:07 | XMS_ITS | Clinical Summary ---
Author Organization [facility] Address [address] [place] [address]. [place], [place] [id number] [place] [address] Care Team Providers Care Chair Maker Name Role Phone Maritza Lorenzo MD Primary Care Provider Allergies Active Allergy Reactions Criticality Noted Date Comments Amoxicillin Rash Medium 06/19/2017 As child Clindamycin Rash Medium 06/19/2017 Sumatriptan Anaphylaxis High 10/01/2018 Social History Tobacco Use Types Packs/Day Years Used Date Smoking Tobacco: Never Smokeless Tobacco: Never Alcohol Use Standard Drinks/Week Comments No 0 (1 standard drink = 0.6 oz pur e alcohol) AUDIT-C Answer Date Recorded Frequency of Alcohol Consumption Never 10/01/2018 Average Number of Drinks Not on file 019 Frequency of Binge Drinking Not on file 09/2018 Comments No Sex and Gender Information Value Date Recorded Sex Assigned at Not on file Legal Sex Female 2:09 PM CDT Gender Identity Not on file Sexual Orientation Not on file Last Filed Vital Signs Vital Sign Reading Time Taken Comments Blood Pressure 180/109 10/01/2018 4:00 PM CDT Pulse 65 10/01/2018 3:53 PM CDT Temperature 37.2 ??C (98.9 ??F) 10/01/2018 1:11 PM CD T Respiratory Rate 17 10/01/2018 4:00 PM CDT Oxygen Saturation 98% 10/01/2018 4:00 PM CDT Inhaled Oxygen Concentration - - Weight 74.8 kg (165 lb) 10/01/2018 1:11 PM CDT Height 165.1 cm (5' 5 ) 10/01/2018 1:11 PM CDT Body Mass Index 27.46 10/01/2018 1:11 PM CDT Plan of Treatment Health Maintenance Due Date Last Done Comments Annual Physical 10/26/1983 Hepatitis C 1998 DTaP, Tdap and Td Vaccines ( 1 - Tdap) 10/26/1999 Hepatitis B Vaccines (1 of 3 - 19+ 3-dose series) 10/26/1999 Mammogram Screening 2020 COVID-19 Vaccine ( - 2023-2 5 season) 2023 Influenza Adult (#1) 2023 HPV Vaccines Aged Out No longer eligi ble based on patient's age to complete this topic Meningococcal Vaccine Aged Out No asha roz eligible based on patient's age to complete this topic Pneumococcal Vaccine: Pediat rics (0 to 5 Years) and At-Risk Patients (6 to 64 Years) Aged Out No longer eligible b ased on patient's age to complete this topic RSV Immunizations Under 20 Months Aged Out No longer eligible based on patient's age to complete this topic Insurance IDIAN Advance Directives Documents on File Type Date Recorded Patient Client Account Specialist Expl anation Advance Directives and Living Will 09/25/2014 12:00 AM ADVANCED DIRECTIVES Advance Directives and Living Will 09/25/2013 12:00 AM ADVANCED DIRECTIVES Advance Directives and Living Will 09/25/2013 12:00 AM ADVANCED DIRECTIVES Advance Directives and Living Will 09/25/2013 12:00 AM ADVANCED DIRECTIVES Advance Directives and Living Will 05/16/2013 12:00 AM ADVANCED DIRECTIVES Advance Directives and Living Will 05/16/2013 12:00 AM ADVANCED DIRECTIVES Advance Directives and Living Will 05/16/2013 12:00 AM ADVANCED DIRECTIVES Advance Directives and Living Will 03/12/2013 12:00 AM ADVANCED DIRECTIVES Advance Directives and Living Will 03/12/2013 12:00 AM ADVANCED DIRECTIVES Advance Directives and Living Will 03/12/2013 12:00 AM ADVANCED DIRECTIVES Advance Directives and Living Will 01/08/2013 12:00 AM ADVANCED DIRECTIVES Advance Directives and Living Will 01/08/2013 12:00 AM ADVANCED DIRECTIVES Advance Directives and Living Will 11/07/2012 12:00 AM ADVANCED DIRECTIVES Care Teams Chair Maker Relationship Specialty Start Date End Date Maritza Lorenzo MD [address] [place] [address] PCP - General 12/18/15
--- OUTSIDE RECORDS SUMMARY | 2024-03-13 02:07 | XMS_ITS | Encounter Summary ---
Author Organization [facility] Address [address] [place] [address]. [place], [place] [address] [place] [address] Care Team Providers Care Graphite Mill Operator Name Role Phone Maritza Lorenzo MD Primary Care Provider Maritza Lorenzo MD Primary Care Provider Maritza Lorenzo MD Primary Care Provider Encounter Details Date Type Department Care Team (Late st Contact Info) Description 09/14/1999 Abstract [place] [address] , Generic MD Benigno Social History Tobacco [...] on filedocumented in this encounter Care Teams Graphite Mill Operator Relationship Specialty Start Date End Date Maritza Lorenzo MD [address] [place] [address] PCP - General 12/18/15 Maritza Lorenzo MD [address] [place] [address] PCP - General 01/03/15 12/17/15 Maritza Lorenzo MD [address] [place] [address] PCP - General 02/10/14 01/02/15 documented as of this encounter
--- OUTSIDE RECORDS SUMMARY | 2024-03-13 02:07 | XMS_ITS | Encounter Summary ---
Author Organization [facility] Address [address] [place] [address]. [place] [address] [place] [address] Care Team Providers Care Case Finishing Machine Adjuster Name Role Phone Maritza Lorenzo MD Primary Care Provider Encounter Details Date Type Department Care Team (Late st Contact Info) Description 12/18/2015 Emergency [facility] Emergency Room [address] [place], [place] [phone] Chandu Garza MD [address] [facility] [address] [place], [place] [phone] Social History Tobacco Use Types Packs/Day Years [...] Procedure Name Priority Date/Time Associated Diagnosis Comments COMPREHENSIVE METABOLIC PANEL STAT 12/18/2015 4:06 PM CDT D-DIMER, QUANTITATIVE STAT 12/18/2015 4:06 PM CDT CKMB(MB FRACTION ONLY) STAT 6 4:06 PM CDT CHORIONIC GONADOTROPIN HCG QL STAT 12/18/2015 4:06 PM CDT CBC W/DIFF AUTOMATED STAT 12/18/2015 4:06 PM CDT TROPONIN, QUANT STAT 12/18/2015 4:06 PM CDT CK (CPK) STAT 12/18/2015 4:06 PM CDT documented in this encounter Results * D-DIMER, QUANTITATIVE (12/18/2015 4:06 PM CDT) Pathologist [facility] D-DIMER 212 0 - 230 ng{D DU}/mL 12/18/2015 4:38 PM CDT [facility] Comment: TESTING PERFORMED ON iXpert ACL TOP 300 ANALYZER. NOTE: RESULTS OF THIS TEST SHOULD ALWAYS BE INTERPRETED IN CONJUNCTION WITH THE PATIENT'S MEDICAL HISTORY, CLINICAL PRESENTATION AND OTHER FINDINGS. CLINICAL DIAGNOSIS SHOULD NOT BE BASED ON THE RESULT OF D-DIMER ALONE. THE MEASUREMENT OF D-DIMER SHOULD NOT BE USED AN AID IN THE DIAGNOSIS OF VTE IN PATIENTS WITH: THERAPEUTIC DOSE ANTICOAGULANT THERAPY FOR >24HRS, FIBRINOLYTIC THERAPY WITHIN PREVIOUS 7 DAYS, TRAUMA OR SURGERY WITHIN PREVIOUS 4 WEEKS, DISSEMINATED MALIGNANCIES, AORTIC ANEURYSM, SEPSIS, SEVERE INFECTIONS, PNEUMONIA, SEVERE SKIN INFECTIONS, LIVER CIRRHOSIS OR . PLASMA SPECIMEN / Unknown 12/18/2015 4:06 PM CDT 12/18/2015 4:12 PM CDT us Generic Conversion Md [facility] Final R esult [facility] [address] [place] [address], [place] [phone] * CHORIONIC GONADOTROPINHCG QL (12/18/2015 4:06 PM CDT) Pathologist [facility] PREG SCREEN-SERUM NEGATIVE 12/18/2015 4:41 PM CDT [facility] 12/18/2015 4:06 PM CDT 12/18/2015 4:11 PM CDT us Generic Conversion Md [facility] Final R esult [facility] [address] [place] [address], * TROPONIN, QUANT (12/18/2015 4:06 PM CDT) TROPONIN I <0.30 <0.30 ng/mL 12/18/2015 4:43 PM CDT [facility] SERUM OR PLASMA SPECIMEN / Unknown 12/18/2015 4:06 PM CDT 12/18/2015 4:11 PM CDT us Generic Conversion Md [facility] Final R esult [facility] [address] [place] [address], * CKMB(MB FRACTION ONLY) (12/18/2015 4:06 PM CDT) CK-MB <1.00 <4.30 ng/mL 12/18/2015 4:43 PM CDT [facility] SERUM OR PLASMA SPECIMEN / Unknown 12/18/2015 4:06 PM CDT 12/18/2015 4:11 PM CDT us Generic Conversion Md [facility] Final R esult [facility] [address] [place] [address], * CK (CPK) (12/18/2015 4:06 PM CDT) CPK 42 26 - 192 U/L 12/18/2015 4:42 PM CDT [facility] SERUM OR PLASMA SPECIMEN / Unknown 12/18/2015 4:06 PM CDT 12/18/2015 4:10 PM CDT us Generic Conversion Md [facility] Final R esult [facility] [address] [place] [address], * (ABNORMAL) COMPREHENSIVE METABOLIC PANEL (12/18/2015 4:06 PM CDT) GLUCOSE 147(H) 70 - 99 mg/dL 12/18/2015 4:42 PM CDT [facility] BUN 12 8 - 23 mg/dL 12/18/2015 4:42 PM CDT [facility] CREATININE S/P/B 0.80 0.60 - 1.10 mg/dL 12/18/2015 4:42 PM CDT [facility] SODIUM S/P/B 141 136 - 145 mmol/L 12/18/2015 4:42 PM CDT [facility] POTASSIUM S/P/B 3.0(LL) 3.5 - 5.1 mmol/L 12/18/2015 4:50 PM CDT [facility] CHLORIDE S/P/B 102 98 - 107 mmol/L 12/18/2015 4:42 PM CDT [facility] CO2 24 22 - 29 mmol/L 12/18/2015 4:42 PM CDT [facility] BILIRUBIN TOTAL S/P/B 0.2 0.2 - 1.2 mg/dL 12/18/2015 4:42 PM CDT [facility] CALCIUM S/P/B 9.9 8.6 - 10.2 mg/dL 12/18/2015 4:42 PM CDT [facility] ALKALINE PHOSPHATASE S/P/B 68 35 - 104 U/L 12/18/2015 4:42 PM CDT [facility] AST 17 0 - 32 U/L 12/18/2015 4:42 PM CDT [facility] TOTAL PROTEIN S/P/B 6.9 6.4 - 8.3 g/dL 12/18/2015 4:42 PM CDT [facility] ALBUMIN S/P/B 4.2 3.5 - 5.2 g/dL 12/18/2015 4:42 PM CDT [facility] ALT 32 0 - 33 U/L 12/18/2015 4:42 PM CDT [facility] GLOBULIN 2.7 2.3 - 3.6 g/dL 12/18/2015 4:42 PM CDT [facility] A/G RATIO 1.6 1.0 - 2.0 12/18/2015 4:42 PM CDT [facility] ANION GAP 18 8 - 20 12/18/2015 4:50 PM CDT [facility] EGFR NON-AFR. AMER. >60 >60 mL/min/1.7 3m'2 12/18/2015 4:42 PM CDT [facility] EGFR AFR. AMER. >60 >60 mL/min/1.7 3m'2 12/18/2015 4:42 PM CDT [facility] Comment: NOTE: eGFR is not calculated for patients <18 years of age. This is an estimated GFR (CKD EPI) and should not be used for calculating drug doses. 12/18/2015 4:06 PM CDT 12/18/2015 4:10 PM CDT us Generic Conversion Md [facility] Final R esult [facility] [address] [place] [address], * (ABNORMAL) CBC W/DIFF AUTOMATED (12/18/2015 4:06 PM CDT) WBC 14.6(H) 4.8 - 10.8 X10'3/uL 12/18/2015 4:16 PM CDT [facility] RBC 4.93 4.20 - 5.40 X10'6/uL 12/18/2015 4:16 PM CDT [facility] HGB 13.5 12.0 - 16.0 g/dL 12/18/2015 4:16 PM CDT [facility] HCT 39.4 38.0 - 48.0 % 12/18/2015 4:16 PM CDT [facility] MCV 79.9(L) 81.0 - 99.0 fL 12/18/2015 4:16 PM CDT [facility] MCH 27.4 27.0 - 31.0 pg 12/18/2015 4:16 PM CDT [facility] MCHC 34.3 32.0 - 36.0 g/dL 12/18/2015 4:16 PM CDT [facility] RDW 13.8 11.5 - 14.5 % 12/18/2015 4:16 PM CDT [facility] PLT 357 130 - 400 X10'3/uL 12/18/2015 4:16 PM CDT [facility] MPV 10.6 9.3 - 12.2 fL 12/18/2015 4:16 PM CDT [facility] DIFFERENTIAL TYPE AUTOMATED 12/18/2015 4:16 PM CDT [facility] NEUTROPHILS % 67.1(H) 43.0 - 65.0 % 12/18/2015 4:16 PM CDT [facility] LYMPHOCYTES % 23.7 20.0 - 46.0 % 12/18/2015 4:16 PM CDT [facility] MONOCYTES % 6.7 5.0 - 12.0 % 12/18/2015 4:16 PM CDT [facility] EOSINOPHILS 1.8 1.0 - 3.0 % 12/18/2015 4:16 PM CDT [facility] BASOPHILS 0.3 0.0 - 1.0 % 12/18/2015 4:16 PM CDT [facility] IMMATURE GRANS % 0.4 0.0 - 1.0 % 12/18/2015 4:16 PM CDT [facility] 12/18/2015 4:06 PM CDT 12/18/2015 4:10 PM CDT us Generic Conversion Md [facility] Final R esult [facility] [address] [place] [address], documented in this encounter Visit Diagnoses Diagnosis Chest pain Chest pain, unspecified documented in this encounter Care Teams Case Finishing Machine Adjuster Relationship Specialty Start Date End Date Maritza Lorenzo MD [address] [place] [address] PCP - General 12/18/15 documented as of this encounter
--- OUTSIDE RECORDS SUMMARY | 2024-03-13 02:07 | XMS_ITS | Encounter Summary ---
Author Organization [facility] Address [address] [place] [address]. [place], [place] [id number] [place] [address] Care Team Providers Care Water Main Pipe Layer Name Role Phone Maritza Lorenzo MD Primary Care Provider Encounter Details Date Type Department Care Team (Late st Contact Info) Description 01/29/2017 [place] [address] , Generic Conversion, Social History Tobacco Use Types Packs/Day Years [...] on filedocumented in this encounter Care Teams Water Main Pipe Layer Relationship Specialty Start Date End Date Maritza Lorenzo MD [address] [place] [address] PCP - General 12/18/15 documented as of this encounter
--- OUTSIDE RECORDS SUMMARY | 2024-03-13 02:07 | XMS_ITS | Encounter Summary ---
Author Organization [facility] Address [address] [place] [address]. [place], [place] [phone] [place] [address] Care Team Providers Care Material Control Clerk Name Role Phone Maritza Lorenzo MD Primary Care Provider Maritza Lorenzo MD Primary Care Provider Maritza Lorenzo MD Primary Care Provider Encounter Details Date Type Department Care Team (Late st Contact Info) Description 09/25/2013 Abstract [facility] Medical/Surgical [address] [place], [place] [id number] Micheal Do MD Social History Tobacco Use [...] on filedocumented in this encounter Care Teams Material Control Clerk Relationship Specialty Start Date End Date Maritza Lorenzo MD [address] [place], [place] [id number] PCP - General 12/18/15 Maritza Lorenzo MD [address] [place] [address] PCP - General 01/03/15 12/17/15 Maritza Lorenzo MD [address] [place] [address] PCP - General 02/10/14 01/02/15 documented as of this encounter
--- OUTSIDE RECORDS SUMMARY | 2024-03-13 02:07 | XMS_ITS | Encounter Summary ---
Author Organization [facility] [place] Address [address] [place] [address]. [place] [address] [place] [address] Care Team Providers Care Sewing Machine Operator Name Role Phone Maritza Lorenzo MD Primary Care Provider Maritza Lorenzo MD Primary Care Provider Maritza Lorenzo MD Primary Care Provider Encounter Details Date Type Department Care Team (Late st Contact Info) Description 07/31/1999 Abstract [facility] Labor & Delivery [address] [place], [place] [phone] Micheal Do MD Social History Tobacco Use [...] on filedocumented in this encounter Care Teams Sewing Machine Operator Relationship Specialty Start Date End Date Maritza Lorenzo MD [address] [place] [address] PCP - General 12/18/15 Maritza Lorenzo MD [address] [place] [address] PCP - General 01/03/15 12/17/15 Maritza Lorenzo MD [address] [place] [address] PCP - General 02/10/14 01/02/15 documented as of this encounter
--- OUTSIDE RECORDS SUMMARY | 2024-03-13 02:07 | XMS_ITS | Encounter Summary ---
Author Organization [facility] Address [address] [place] [address]. [place], [place] [id number] [place] [address] Care Team Providers Care Mobile Heavy Equipment Operator Name Role Phone Maritza Lorenzo MD Primary Care Provider Reason for Visit * Reason Comments Wound Infection Encounter Details Date Type Department Care Team (Late st Contact Info) Description 10/01/2018 1:53 PM CDT - 10/01/2018 4:22 PM CDT Emergency [facility] [place] [address] Jcarlos Goyal MD [address] [place] [address] Wound Infection Discharge Disposition: Home or Self Care (Routine Discharge) Social History Tobacco Use Types Packs/Day Years [...] on file documented as of this encounter Last Filed Vital Signs Vital Sign Reading [...] Mass Index 27.46 10/01/2018 1:11 PM CDT documented in this encounter Discharge Instructions * Discharge Instructions* Jcarlos Goyal MD - 10/01/2018 4:02 PM CDT Please do not hesitate to return to the emergency department for any increase of your symptoms, forany new pains or fevers, or for any other concerns about your health. Take the antibiotics providedexactly as directed. Take the entire course of the medicine. documented in this encounter Medications at Time of Discharge sulfamethoxazole- trimethoprim 800-160 MG tablet Take 2 tablets by mouth 2 (two) times daily for 7 days. 28 tablet 10/01/2018 10/08/2018 documented as of this encounter ED Notes * Gemma España RN - 10/01/2018 4:20 PM CDT Written and verbal instructions provided No questions or concerns at this time * Gemma España RN - 10/01/2018 4:01 PM CDT Nellie DEGROOT attempted LEJ, LEJ infiltrated. No c/o at this time. notified of no IV access * Gemma España RN - 10/01/2018 3:32 PM CDT Attempted IV x 2 without success surgical assistant notified * Jcarlos Goyal MD - 10/01/2018 3:06 PM CDT Chief Complaint Chief Complaint Patient presents with ??? Wound Infection Blood pressure (!) 180/109, pulse 65, temperature 98.9 ??F (37.2 ??C), temperature source Oral, resp. rate 17, height 5' 5 (1.651 m), weight 74.8 kg (165 lb), SpO2 98 %. History of Present Illness Gely Allen is a 37-year-old female presenting with a wound to her left leg that developed over the last 3 weeks. The patient states the wound began as a small red dot. She states it opened 3 days ago. She has been using peroxide and applying neosporin to the wound. She denies recent travel. Denies fever. Denies IV drug use. Denies any prior similar symptoms. Denies history of DM. History provided by: Patient cytology technologist used: No Medical History ALLERGIES: Allergies Allergen Reactions ??? Imitrex [Sumatriptan] Anaphylaxis ??? Amoxicillin Rash As child ??? Clindamycin Rash MEDICATIONS: Prior to Admission medications Medication Sig Start Date End Date Taking? Authorizing Provider sulfamethoxazole-trimethoprim 800-160 MG tablet Take 2 tablets by mouth 2 (two) times daily for 7 days. 10/01/18 10/08/18 Yes Jcarlos Goyal MD PAST MEDICAL HISTORY: Past Medical History: Diagnosis Date ??? Hypertension ??? Migraines PAST SURGICAL HISTORY: Past Surgical History: Procedure Laterality Date ??? HYSTERECTOMY FAMILY HISTORY: No family history on file. SOCIAL HISTORY: Social History Tobacco Use ??? Smoking status: Never Smoker ??? Smokeless tobacco: Never Used Substance Use Topics ??? Alcohol use: No Frequency: Never ??? 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 Negative for chills, diaphoresis, fatigue and fever. Respiratory: Negative. Negative for cough, shortness of breath and wheezing. Cardiovascular: Negative. Negative for chest pain. Gastrointestinal: Negative for abdominal pain, diarrhea, nausea and vomiting. Musculoskeletal: Negative. Skin: Positive for wound (Left lower leg). Negative for rash. Neurological: Negative. Psychiatric/Behavioral: Negative. All other systems reviewed and are negative. Physical Exam Filed Vitals: 10/01/18 1311 10/01/18 1553 BP: (!) 212/105 (!) 184/115 Pulse: 91 65 Resp: 18 10 Temp: 98.9 ??F (37.2 ??C) TempSrc: Oral SpO2: 100% 98% Weight: 74.8 kg (165 lb) Height: 5' 5 (1.651 m) Physical Exam Constitutional: She is oriented to person, place, and time. She appears well- developed and well-nourished. No distress. HENT: Head: Normocephalic and atraumatic. Eyes: Pupils are equal, round, and reactive to light. Neck: Normal range of motion. Neck supple. Cardiovascular: Normal rate, regular rhythm, normal heart sounds and intact distal pulses. Exam reveals no gallop and no friction rub. No murmur heard. Pulmonary/Chest: Effort normal and breath sounds normal. No respiratory distress. She has no wheezes. She has no rales. Abdominal: Soft. She exhibits no distension. There is no tenderness. There is no rebound and no guarding. Musculoskeletal: Normal range of motion. She exhibits no edema or deformity. Neurological: She is alert and oriented to person, place, and time. No cranial nerve deficit. Coordination normal. Skin: Skin is warm and dry. No rash noted. She is not diaphoretic. No erythema. No pallor. 4 centimeter area of eschar to the left anterior mota. No purulence. No crepitus. Neurovascularly intact distally. Psychiatric: She has a normal mood and affect. Her behavior is normal. Nursing note and vitals reviewed. Diagnostic Studies / Procedures ELECTROCARDIOGRAMS: No results found for this visit on 10/01/18. LABORATORY STUDIES: Results for orders placed or performed during the hospital encounter of 10/01/18 CBC W/DIFF AUTOMATED Result Value Ref Range WBC 10.5 4.5 - 11.0 x10'3/uL RBC 5.16 4.20 - 5.40 x10'6/uL HGB 13.9 12.0 - 16.0 G/DL HCT 43.0 38.0 - 48.0 % MCV 83.3 81.0 - 99.0 FL MCH 26.9 (L) 27.0 - 31.0 PG MCHC 32.3 32.0 - 36.0 G/DL RDW 12.5 11.5 - 14.5 % PLT 277 130 - 400 x10'3/uL MPV 9.9 9.3 - 12.2 FL DIFFERENTIAL TYPE AUTOMATED DIFFERENTIAL NEUTROPHILS 83.1 % LYMPHOCYTES 9.6 % MONOCYTES 5.7 % EOSINOPHILS 0.9 % BASOPHILS 0.3 % IMMATURE GRANS 0.4 % ABS. NEUTROPHILS TOTAL 8.73 (H) 1.80 - 7.70 x10'3/uL ABS. LYMPHOCYTES 1.01 1.00 - 4.80 x10'3/uL ABS. MONOCYTES 0.60 0.24 - 0.86 x10'3/uL ABS. EOSINOPHILS 0.09 0.04 - 0.36 x10'3/uL ABS. BASOPHILS 0.03 0.01 - 0.08 x10'3/uL ABS. IMMATURE GRANULOCYTES 0.04 0.00 - 0.49 x10'3/uL COMPREHENSIVE METABOLIC PANEL Result Value Ref Range GLUCOSE 92 70 - 99 MG/DL BUN 13 7 - 18 MG/DL CREATININE 0.90 0.55 - 1.02 MG/DL SODIUM 136 136 - 145 MMOL/L POTASSIUM 3.6 3.5 - 5.1 MMOL/L CHLORIDE 103 100 - 108 MMOL/L CO2 30.1 21 - 32 MMOL/L CALCIUM 9.3 8.5 - 10.1 MG/DL TOTAL BILIRUBIN 0.6 0.2 - 1.2 MG/DL TOTAL PROTEIN 8.8 (H) 6.4 - 8.2 G/DL ALBUMIN 4.3 3.4 - 5.0 G/DL AST 21 15 - 37 U/L ALT 24 14 - 55 U/L ALK PHOS 92 50 - 136 U/L ANION GAP 2.9 (L) 5 - 15 MMOL/L BUN CREATININE RATIO 14.4 6 - 26 A/G RATIO 1.0 1.0 - 2.0 RATIO eGFR Non-Afr. Amer. 82 (L) >90 ML/MIN/1.73 M2 eGFR Afr. Amer. >90 >90 ML/MIN/1.73 M2 LACTIC ACID Result Value Ref Range LACTIC ACID 1.3 0.4 - 2.0 MMOL/L IMAGING STUDIES XR TIBIA+FIBULA LT 2V Final Result by User, [id number] (10/01 1538) Exam: Left lower leg x-ray No comparison INDICATION: Worsening wound on the anterior lower leg for 2 weeks. TECHNIQUE: 2 views FINDINGS: Subtle superficial soft tissue lucency in the distal lower leg anteriorly may represent the area of concern. Normal appearance of the bones. IMPRESSION: No acute bone findings. Interpreted By: Anthony Gavin MD, 10/01/2018 3:36 PM ED Course / Medical Decision Making MDM Diagnosis management comments: 37-year-old female presents with wound to the left lower leg. Pulse oximetry interpreted by me: 100% on room air. Impression normal. Rhythm strip interpreted by me: Normal sinus rhythm, rate of 91. No arrhythmias. Differential: high probability soft tissue. Moderate probability wound infection. Low probability necrotizing infection. Plan: - Labs - X-Ray -Patient with expanding wound that does not appear grossly infected. Plan prophylactic antibiotics and discharged to follow-up with her primary physician at her earliest convenience. Patient also with elevated blood pressure in the emergency department. I have encouraged her to follow-up with her primary physician for further evaluation and management of this problem. Patient states understandingthat she should return for any increase in her symptoms, for any new fevers, or for any other concerns. Patient reassessed frequently. Discharge orders placed I have discussed today's findings with the patient and provided information regarding the likely diagnosis. The patient has been given information regarding their treatment, follow up and concerning symptoms for which they should seek urgent or emergent attention. I have expressed the the importance of seeking attention should there be any new, or worsening symptoms or persistence of their condition. The patient is stable at discharge and has verbalized understanding of these instructions. Clinical Impression Wound of left lower extremity, initial encounter (Primary) Disposition: Discharge Cy Bishop, acting as a scribe, am personally taking down the notes in the presence ofDr. Jcarlos Goyal MD. Take no action on this note until reviewed and authenticated by the physician. Jcarlos Goyal MD 10/01/18 [id number] * Ravi Schuler RN - 10/01/2018 1:14 PM CDT Pt to triage with complaint of worsening wound on her anterior left lower leg. Notes progressively worse over the last 2 weeks. Pt states headache, SOB, HTN, and nausea. Denies cough, fever, sore throat. Open area noted. * Rj Mcmullen PA-C - 10/01/2018 1:14 PM CDT [place], [place] EMERGENCY DEPARTMENT ENCOUNTER Medical Screening Examination 10/01/18 1:15 PM Chief Complaint : Wound Infection HPI : Gely Allen is a 37-year-old female who presents to the ED with a wound on left anterior lower leg. Wound started 2 weeks ago with unknown injury. Increased redness, pain and swelling. Reports nausea. Denies fever. Vital Signs: Filed Vitals: 10/01/18 1311 BP: (!) 212/105 Pulse: 91 Resp: 18 Temp: 98.9 ??F (37.2 ??C) TempSrc: Oral SpO2: 100% Weight: 74.8 kg (165 lb) Height: 5' 5 (1.651 m) Physical exam: A brief physical exam was completed to facilitate/expedite patient care. Plan: Necessary labs/imaging/medications ordered to initiate pt care. Rj Mcmullen PA-C 10/01/18 1315 Cosigned by Marisol Brown MD at 10/01/2018 1:26 PM CDT documented in this encounter Plan of Treatment Not on file documented as of this encounter Procedures Procedure Name Priority Date/Time Associated Diagnosis Comments XR TIBIA+FIBULA LT 2V STAT 10/01/2018 3:15 PM CDT CULTURE, BACTERIA, BLOOD STAT 10/01/2018 2:39 PM CDT COMPREHENSIVE METABOLIC PANEL STAT 10/01/2018 2:36 PM CDT LACTIC ACID TIMED 10/01/2018 2:36 PM CDT CULTURE, BACTERIA, BLOOD STAT 10/01/2018 2:36 PM CDT CBC W/DIFF AUTOMATED STAT 10/01/2018 2:36 PM CDT documented in this encounter Results * XR TIBIA+FIBULA LT 2V (10/01/2018 3:15 PM CDT) Anatomical Region Laterality Modality TibFib Radiographic Brandie ging 10/01/2018 3:36 PM CDT Impressions 10/01/2018 3:38 PM CDT IMPRESSION: No acute bone findings. Interpreted By: Anthony Gavin MD, 10/01/2018 3:36 PM Narrative 10/01/2018 3:38 PM CDT Exam: Left lower leg x-ray No comparison INDICATION: Worsening wound on the anterior lower leg for 2 weeks. TECHNIQUE: 2 views FINDINGS: Subtle superficial soft tissue lucency in the distal lower leg anteriorly may represent the area of concern. ??Normal appearance of the bones. Procedure Note Anthony Gavin MD - 10/01/2018 Exam: Left lower leg x-ray No comparison INDICATION: Worsening wound on the anterior lower leg for 2 weeks. TECHNIQUE: 2 views FINDINGS: Subtle superficial soft tissue lucency in the distal lower leganteriorly may represent the area of concern. Normal appearance of thebones. IMPRESSION: No acute bone findings. Interpreted By: Anthony Gavin MD, 10/01/2018 3:36 PM Jcarlos Goyal MD GENERAL IMAGING Final Result * CULTURE, BACTERIA, BLOOD (10/01/2018 2:39 PM CDT) SPEC DESCRIPTION BLOOD-PEDIA TRIC VOLUME 10/01/2018 1:15 PM CDT [facility] SPECIAL REQUESTS NO SPECIAL REQUEST 10/01/2018 1:15 PM CDT [facility] CULTURE RESULT NO GROWTH 5 DAYS 10/06/2018 2:42 PM CDT [facility] BLOOD SPECIMEN OBTAINED FOR BLOOD CULTURE / Unknown 10/01/2018 2:39 PM CDT 10/01/2018 2:40 PM CDT us Rj Mcmullen PA-C MICROBIOLOGY - GENERAL ORDERABLES Final Result Performing Organization Address City/[facility]/ZIP Co de Phone Number [facility] [address] [place] [address], [place] [phone] * LACTIC ACID (10/01/2018 2:36 PM CDT) LACTIC ACID VENOUS 1.3 0.4 - 2.0 MMOL/L 10/01/2018 3:10 PM CDT [facility] 10/01/2018 2:36 PM CDT Rj Mcmullen PA-C LABORATORY Final R esult Performing Organization Address City/[facility]/ZIP Co de Phone Number [facility] [address] [place] [address], [place] [phone] * CULTURE, BACTERIA, BLOOD (10/01/2018 2:36 PM CDT) SPEC DESCRIPTION BLOOD-PEDIA TRIC VOLUME 10/01/2018 1:14 PM CDT [facility] SPECIAL REQUESTS NO SPECIAL REQUEST 10/01/2018 1:14 PM CDT [facility] CULTURE RESULT NO GROWTH 5 DAYS 10/06/2018 2:42 PM CDT [facility] BLOOD SPECIMEN OBTAINED FOR BLOOD CULTURE / Unknown 10/01/2018 2:36 PM CDT 10/01/2018 2:39 PM CDT us Rj Mcmullen PA-C MICROBIOLOGY - GENERAL ORDERABLES Final Result [facility] [address] [place] [address], [place] [phone] * (ABNORMAL) COMPREHENSIVE METABOLIC PANEL (10/01/2018 2:36 PM CDT) GLUCOSE 92 70 - 99 MG/DL 10/01/2018 3:10 PM CDT [facility] BUN 13 7 - 18 MG/DL 10/01/2018 3:10 PM CDT [facility] CREATININE S/P/B 0.90 0.55 - 1.02 MG/DL 10/01/2018 3:10 PM CDT [facility] SODIUM S/P/B 136 136 - 145 MMOL/L 10/01/2018 3:10 PM CDT [facility] POTASSIUM S/P/B 3.6 3.5 - 5.1 MMOL/L 10/01/2018 3:10 PM CDT [facility] CHLORIDE S/P/B 103 100 - 108 MMOL/L 10/01/2018 3:10 PM CDT [facility] CO2 30.1 21 - 32 MMOL/L 10/01/2018 3:10 PM CDT [facility] CALCIUM S/P/B 9.3 8.5 - 10.1 MG/DL 10/01/2018 3:10 PM CDT [facility] BILIRUBIN TOTAL S/P/B 0.6 0.2 - 1.2 MG/DL 10/01/2018 3:10 PM CDT [facility] TOTAL PROTEIN S/P/B 8.8(H) 6.4 - 8.2 G/DL 10/01/2018 3:10 PM CDT [facility] ALBUMIN S/P/B 4.3 3.4 - 5.0 G/DL 10/01/2018 3:10 PM CDT [facility] AST 21 15 - 37 U/L 10/01/2018 3:10 PM CDT [facility] ALT 24 14 - 55 U/L 10/01/2018 3:10 PM CDT [facility] ALKALINE PHOSPHATASE S/P/B 92 50 - 136 U/L 10/01/2018 3:10 PM CDT [facility] ANION GAP 2.9(L) 5 - 15 MMOL/L 10/01/2018 3:10 PM CDT [facility] BUN CREATININE RATIO 14.4 6 - 26 10/01/2018 3:10 PM CDT [facility] A/G RATIO 1.0 1.0 - 2.0 RATIO 10/01/2018 3:10 PM CDT [facility] EGFR NON-AFR. AMER. 82(L) >90 ML/MIN/1.7 3 M2 10/01/2018 3:10 PM CDT [facility] EGFR AFR. AMER. >90 >90 ML/MIN/1.7 3 M2 10/01/2018 3:10 PM CDT [facility] Comment: NOTE: eGFR is not calculated for patients <18 years of age. This is an estimated GFR (CKD EPI) and should not be used for calculating drug doses. 10/01/2018 2:36 PM CDT us Rj Mcmullen PA-C LABORATORY Final R esult [facility] [address] [place] [address], * (ABNORMAL) CBC W/DIFF AUTOMATED (10/01/2018 2:36 PM CDT) WBC 10.5 4.5 - 11.0 x10'3/uL 10/01/2018 2:49 PM CDT [facility] RBC 5.16 4.20 - 5.40 x10'6/uL 10/01/2018 2:49 PM CDT [facility] HGB 13.9 12.0 - 16.0 G/DL 10/01/2018 2:49 PM CDT [facility] HCT 43.0 38.0 - 48.0 % 10/01/2018 2:49 PM CDT [facility] MCV 83.3 81.0 - 99.0 FL 10/01/2018 2:49 PM CDT [facility] MCH 26.9(L) 27.0 - 31.0 PG 10/01/2018 2:49 PM CDT [facility] MCHC 32.3 32.0 - 36.0 G/DL 10/01/2018 2:49 PM CDT [facility] RDW 12.5 11.5 - 14.5 % 10/01/2018 2:49 PM CDT [facility] PLT 277 130 - 400 x10'3/uL 10/01/2018 2:49 PM CDT [facility] MPV 9.9 9.3 - 12.2 FL 10/01/2018 2:49 PM CDT [facility] DIFFERENTIAL TYPE AUTOMATED DIFFERENTIAL 10/01/2018 2:49 PM CDT [facility] NEUTROPHILS % 83.1 % 10/01/2018 2:49 PM CDT [facility] LYMPHOCYTES % 9.6 % 10/01/2018 2:49 PM CDT [facility] MONOCYTES % 5.7 % 10/01/2018 2:49 PM CDT [facility] EOSINOPHILS 0.9 % 10/01/2018 2:49 PM CDT [facility] BASOPHILS 0.3 % 10/01/2018 2:49 PM CDT [facility] IMMATURE GRANS % 0.4 % 10/02/19 2:49 PM CDT [facility] ABS. NEUTROPHILS TOTAL 8.73(H) 1.80 - 7.70 x10'3/uL 10/01/2018 2:49 PM CDT [facility] ABS. LYMPHOCYTES 1.01 1.00 - 4.80 x10'3/uL 10/01/2018 2:49 PM CDT [facility] ABS. MONOCYTES 0.60 0.24 - 0.86 x10'3/uL 10/01/2018 2:49 PM CDT [facility] ABS. EOSINOPHILS 0.09 0.04 - 0.36 x10'3/uL 10/01/2018 2:49 PM CDT [facility] ABS. BASOPHILS 0.03 0.01 - 0.08 x10'3/uL 10/01/2018 2:49 PM CDT [facility] ABS. IMMATURE GRANULOCYTES 0.04 0.00 - 0.49 x10'3/uL 10/01/2018 2:49 PM CDT [facility] 10/01/2018 2:36 PM CDT Rj Mcmullen PA-C LABORATORY Final R esult [facility] [address] [place] [address], [place] [phone] documented in this encounter Visit Diagnoses Diagnosis Wound of left lower extremity, initial encounter- Primary documented in this encounter Administered Medications Inactive Administered Medications - up to 3 most recent administrations Medication Order MAR Action Action Date Dose Rate Site sodium chloride 0.9% bolus infusion SOLN 1,000 mL 1,000 mL, Intravenous, Administer over 15 Minutes, Once, 1 dose, On 10/01/18 at 1315 New Bag 10/01/2018 3:56 PM CDT 1,000 mLs documented in this encounter Active and Recently Administered Medications Times are shown in CDT. Scheduled Medication Order 09/29/2018 09/30/2018 10/01/2018 sodium chloride 0.9% bolus infusion SOLN 1,000 mL (COMPLETED) 1,000 mL, Intravenous, Administer over 15 Minutes, Once, 1 dose, On 10/01/18 at 1315 1556 (New Bag - Prov ider: Gemma España RN)1613 (Infusion Stop Time - Provider: Gemma España RN) documented in this encounter Care Teams Mobile Heavy Equipment Operator Relationship Specialty Start Date End Date Maritza Lorenzo MD [address] [place] [address] PCP - General 12/18/15 documented as of this encounter
--- OUTSIDE RECORDS SUMMARY | 2024-03-13 02:07 | XMS_ITS | Encounter Summary ---
Author Organization [facility] Address [address] [place] [address]. [place], [place] [address] [place] [address] Care Team Providers Care Recreational Aide Name Role Phone Maritza Lorenzo MD Primary Care Provider Maritza Lorenzo MD Primary Care Provider Maritza Lorenzo MD Primary Care Provider Encounter Details Date Type Department Care Team (Late st Contact Info) Description 09/17/1999 [place] [address] , Generic MD Benigno Social History Tobacco [...] on filedocumented in this encounter Care Teams Recreational Aide Relationship Specialty Start Date End Date Maritza Lorenzo MD [address] [place] [address] PCP - General 12/18/15 Maritza Lorenzo MD [address] [place] [address] PCP - General 01/03/15 12/17/15 Maritza Lorenzo MD [address] [place] [address] PCP - General 02/10/14 01/02/15 documented as of this encounter
--- OUTSIDE RECORDS SUMMARY | 2024-03-13 02:07 | XMS_ITS | Encounter Summary ---
Author Organization [facility] Address [address] [place] [address]. [place] [address] [place] [address] Care Team Providers Care Diagnostic Radiologic Technologist Name Role Phone Maritza Lorenzo MD Primary Care Provider Maritza Lorenzo MD Primary Care Provider Maritza Lorenzo MD Primary Care Provider Encounter Details Date Type Department Care Team (Late st Contact Info) Description 10/23/1999 Abstract [facility] Diagnostic Imaging [address] [place], [place] [id number] Micheal Do MD Social History Tobacco Use [...] on filedocumented in this encounter Care Teams Diagnostic Radiologic Technologist Relationship Specialty Start Date End Date Maritza Lorenzo MD [address] [place] [address] PCP - General 12/18/15 Maritza Lorenzo MD [address] [place] [address] PCP - General 01/03/15 12/17/15 Maritza Lorenzo MD [address] [place] [address] PCP - General 02/10/14 01/02/15 documented as of this encounter
--- OUTSIDE RECORDS SUMMARY | 2024-03-13 02:07 | XMS_ITS | Encounter Summary ---
Author Organization [facility] Address [address] [place] [address]. [place] [address] [place] [address] Care Team Providers Care Stock Handler Name Role Phone Maritza Lorenzo MD Primary Care Provider Maritza Lorenzo MD Primary Care Provider Maritza Lorenzo MD Primary Care Provider Encounter Details Date Type Department Care Team (Late st Contact Info) Description 11/20/2001 Abstract [facility] [address] [place], [place] [id number] Micheal Do MD Social History Tobacco Use [...] on filedocumented in this encounter Care Teams Stock Handler Relationship Specialty Start Date End Date Maritza Lorenzo MD [address] [place] [address] PCP - General 12/18/15 Maritza Lorenzo MD [address] [place] [address] PCP - General 01/03/15 12/17/15 Maritza Lorenzo MD [address] [place] [address] PCP - General 02/10/14 01/02/15 documented as of this encounter
--- OUTSIDE RECORDS SUMMARY | 2024-03-13 02:07 | XMS_ITS | Encounter Summary ---
Author Organization [facility] Address [address] [place] [address]. [place], [place] [id number] [place] [address] Care Team Providers Care Leveling Machine Operator Name Role Phone Maritza Lorenzo MD Primary Care Provider Maritza Lorenzo MD Primary Care Provider Maritza Lorenzo MD Primary Care Provider Encounter Details Date Type Department Care Team (Late st Contact Info) Description 01/08/2013 Abstract [facility] Medical/Surgical [address] [place], [place] [phone] Micheal Do MD Social History Tobacco Use [...] on filedocumented in this encounter Care Teams Leveling Machine Operator Relationship Specialty Start Date End Date Maritza Lorenzo MD [address] [place], [place] [id number] PCP - General 12/18/15 Maritza Lorenzo MD [address] [place] [address] PCP - General 01/03/15 12/17/15 Maritza Lorenzo MD [address] [place] [address] PCP - General 02/10/14 01/02/15 documented as of this encounter
--- OUTSIDE RECORDS SUMMARY | 2024-03-13 02:07 | XMS_ITS | Encounter Summary ---
Author Organization [facility] Address [address] [place] [address]. [place], [place] [phone] [place] [address] Care Team Providers Care Receiving Weigher Name Role Phone Maritza Lorenzo MD Primary Care Provider Maritza Lorenzo MD Primary Care Provider Maritza Lorenzo MD Primary Care Provider Encounter Details Date Type Department Care Team (Late st Contact Info) Description 03/12/2013 Abstract [facility] Medical/Surgical [address] [place], [place] [phone] Micheal Do MD Social History Tobacco Use [...] on filedocumented in this encounter Care Teams Receiving Weigher Relationship Specialty Start Date End Date Maritza Lorenzo MD [address] [place] [address] PCP - General 12/18/15 Maritza Lorenzo MD [address] [place] [address] PCP - General 01/03/15 12/17/15 Maritza Lorenzo MD [address] [place] [address] PCP - General 02/10/14 01/02/15 documented as of this encounter
--- OUTSIDE RECORDS SUMMARY | 2024-03-13 02:21 | XMS_ITS | Encounter Summary ---
Author Organization [facility] Healthcare Address [address] [place] [address] Care Team Providers Care Cloud Systems Architect Name Role Phone No, Physician Primary Care Provider [phone] Rashaun Benavidez MD Unavailable [phone] Miscellaneous, Not In File Unavailable Unava ilable Encounter Details Date Type Department Care Team (Late st Contact Info) Description 12/07/[address] [facility] 1 [place] [address] Anette Apple MD [address] [place] [address] [place] [address] Social History Tobacco Use Types Packs/Day Years Used Date Smoking Tobacco: Never Smokeless Tobacco: Never Alcohol Use Standard Drinks/Week Comments Not Currently 0 (1 standard drink = 0.6 oz pur e alcohol) [facility] Utilities Answer Date Recorded In the past 12 months has [employer], gas, oil, or water [employer] threatened to shut off services in your home? No 09/05/2023 Social Connection and Isolation Panel [NHANES] A nswer Date Recorded In a typical week, how many times do you talk on the phone with family, friends, or neighbors? Once a week 09/05/2023 How often do you get together with friends or re latives? Once a week 09/05/2023 How often do you attend caodaism or taoism serv ices? Never 09/05/2023 Do you belong to any clubs o r organizations such as caodaism groups, unions, fraternal or athletic groups, or school groups? No 09/05/2023 How often do you attend meet ings of the clubs or organizations you belong to? Never 09/05/2023 Are you , , di vorced, , never , or living with a partner? 09/05/2023 AUDIT-C Answer Date Recorded Q1: How often do you have a drink containing alc ohol? Never 07/01/2022 Average Number of Drinks Not on file 023 Q3: How often do you have si x or more drinks on one occasion? Never 07/01/2022 Overall Financial Resource Strain (CARDIA) Answe r Date Recorded How hard is it for you to pa y for the very basics like food, housing, medical care, and heating? Very hard 09/05/2023 PHQ-2 Answer Date Recorded PHQ-2 Total Score (If total score is 3 or more points, staff should administer the PHQ-9) 6 09/05/2023 Hunger Vital Sign Answer Date Recorded Within the past 12 months, y ou worried that your food would run out before you got the money to buy more. Never true 09/05/19 24 Within the past 12 months, t he food you bought just didn't last and you didn't have money to get more. Never true 09/05/2023 PRAPARE - Transportation Answer Date Re corded In the past 12 months, has l ack of transportation kept you from medical appointments or from getting medications? No 08/26 In the past 12 months, has l ack of transportation kept you from meetings, work, or from getting things needed for daily living? No 09/05/2023 Housing Stability Vital Sign Answer Calvin e Recorded In the last 12 months, was t here a time when you were not able to pay the mortgage or rent on time? No 08/06/2022 In the last 12 months, how many places have you lived? 1 08/06/2022 In the last 12 months, was t here a time when you did not have a steady place to sleep or slept in a senior living (including now)? No 08/06/2022 Housing Stability Vital Sign Answer Calvin e Recorded In the last 12 months, was t here a time when you were not able to pay the mortgage or rent on time? No 09/05/2023 In the past 12 months, how m any times have you moved where you were living? 1 09/05/2023 At any time in the past 12 m [facility], were you homeless or living in a senior living (including now)? No 09/05/2023 Personal Safety Answer Date Recorded Have you ever been in or are you currently in a harmful physical or emotional relationship or is someone making you feel afraid or unsafe? 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 Gender Identity Not on file Sexual Orientation Not on file documented as of this encounter Ordered Prescriptions Prescription Sig Dispense Quantity Refills Last Filled Start Date End Date doxycycline monohydrate (MONODOX) 100 mg capsuleIndications :Skin/Soft Tissue Infection Take 1 capsule (100 mg total) by mouth 2 (two) times a day for 14 days 28 capsule 1 12/07/2023 documented in this encounter Plan of Treatment Not on file documented as of this encounter Visit Diagnoses Not on filedocumented in this encounter Additional Health Concerns Infection Onset Date Last Indicated Resolved Time MRSA Comment:Wound from arm - 09/03/2023, 09/04/2023 09/03/2023 03/05/2024 documented as of this encounter Care Teams Cloud Systems Architect Relationship Specialty Start Date End Date No, Physician PCP - General 01/31/21 Rashaun Benavidez MD [address] [place] [id number] Consulting Physician Cardiology 07/08/22 Miscellaneous, Not In File 07/08/22 documented as of this encounter
--- OUTSIDE RECORDS SUMMARY | 2024-03-13 02:21 | XMS_ITS | Encounter Summary ---
Author Organization [facility] Healthcare Address [address] [place] [address] Care Team Providers Care Sports Physiotherapist Name Role Phone No, Physician Primary Care Provider [phone] Rashaun Benavidez MD Unavailable [phone] Miscellaneous, Not In File Unavailable Unava ilable Encounter Details Date Type Department Care Team (Late st Contact Info) Description 02/15/[address] [facility] 1 [place] [address] Anette Apple MD [address] [place] [address] [place] [address] Social History Tobacco Use Types Packs/Day Years Used Date Smoking Tobacco: Never Smokeless Tobacco: Never Alcohol Use Standard Drinks/Week Comments Not Currently 0 (1 standard drink = 0.6 oz pur e alcohol) [facility] Utilities Answer Date Recorded In the past 12 months has [employer], gas, oil, or water [employer] threatened to shut off services in your home? No 09/05/2023 Social Connection and Isolation Panel [NHANES] A nswer Date Recorded In a typical week, how many times do you talk on the phone with family, friends, or neighbors? Once a week 09/05/2023 How often do you get together with friends or re latives? Once a week 09/05/2023 How often do you attend congregation or taoist serv ices? Never 09/05/2023 Do you belong to any clubs o r organizations such as congregation groups, unions, fraternal or athletic groups, or [...] place to sleep or slept in a custodial (including now)? No 08/06/2022 Housing Stability Vital Sign Answer Calvin e Recorded In the last 12 months, was t here a time when you were not able to pay the mortgage or rent on time? No 09/05/2023 In the past 12 months, how m any times have you moved where you were living? 1 09/05/2023 At any time in the past 12 m [facility], were you homeless or living in a custodial (including now)? No 09/05/2023 Personal Safety Answer Date Recorded Have you ever been in or are you currently in a harmful physical or emotional relationship or is someone making you feel afraid or unsafe? 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 Gender Identity Not on file Sexual Orientation Not on file documented as of this encounter Ordered Prescriptions Prescription Sig Dispense Quantity Refills Last Filled Start Date End Date silver sulfadiazine (SILVADENE, SSD) 1 % cream Apply topically daily 400 g 1 02/15/2024 documented in this encounter Plan of Treatment Not on file documented as of this encounter Visit Diagnoses Not on filedocumented in this encounter Additional Health Concerns Infection Onset Date Last Indicated Resolved Time MRSA Comment:Wound from arm - 09/03/2023, 09/04/2023 09/03/2023 03/05/2024 documented as of this encounter Care Teams Sports Physiotherapist Relationship Specialty Start Date End Date No, Physician PCP - General 01/31/21 Rashaun Benavidez MD [address] [facility] [address] [id number] Consulting Physician Cardiology 07/08/22 Miscellaneous, Not In File 07/08/22 documented as of this encounter
--- OUTSIDE RECORDS SUMMARY | 2024-03-13 02:21 | XMS_ITS | Encounter Summary ---
Author Organization [facility] Healthcare Address [address] [place] [address] Care Team Providers Care Financial Specialist Name Role Phone No, Physician Primary Care Provider [phone] Rashaun Benavidez MD Unavailable [phone] Miscellaneous, Not In File Unavailable Unava ilable Encounter Details Date Type Department Care Team (Late st Contact Info) Description 11/09/2023 2:30 PM CDT Office Visit [facility] 1 [place] [address] Ulcer with gangrene, with fat layer exposed (HCC) Social History Tobacco Use Types Packs/Day Years Used Date Smoking Tobacco: Never Smokeless Tobacco: Never Alcohol Use Standard Drinks/Week Comments Not Currently 0 (1 standard drink = 0.6 oz pur e alcohol) [facility] Utilities Answer Date Recorded In the past 12 months has [employer], gas, oil, or water company threatened to shut off services in your home? No 09/05/2023 Social Connection and Isolation Panel [NHANES] A nswer Date Recorded In a typical week, how many times do you talk on the phone with family, friends, or neighbors? Once a week 09/05/2023 How often do you get together with friends or re latives? Once a week 09/05/2023 How often do you attend temple or shinto serv ices? Never 09/05/2023 Do you belong to any clubs o r organizations such as temple groups, unions, fraternal or athletic groups, or [...] place to sleep or slept in a fci (including now)? No 08/06/2022 Housing Stability Vital Sign Answer Calvin e Recorded In the last 12 months, was t here a time when you were not able to pay the mortgage or rent on time? No 09/05/2023 In the past 12 months, how m any times have you moved where you were living? 1 09/05/2023 At any time in the past [address] [facility], were you homeless or living in a fci (including now)? No 09/05/2023 Personal Safety Answer Date Recorded Have you ever been in or are you currently in a harmful physical or emotional relationship or is someone making you feel afraid or unsafe? 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 Moderate Gram Positive Cocci Comment:Testing performed by : [facility], [address] [place]., [address] Report Final Report: Moderate Staphylococcus aureus Methicillin resistant (MRSA) by penicillin binding protein 2a (PBP2a) testing. (.) LAURA HORN (PRATIBHA) Comment:Testing performed by : [facility], [address] [place] [address]., [address] Organism STAPHYLOCOCCUS AUREUS LAURA HORN (PRATIBHA) Tissue (Arm, right) 11/09/2023 4:30 PM CDT 11/09/2023 7:37 PM CDT Narrative LAURA HORN (PRATIBHA) - 11/16/2023 2:34 PM CDT Testing performed by [facility] Laboratory ([phone]) Specimens submitted from normally sterile body sites will have all bacterial morphotypes identified. Specimens that contain grossly mixed geronimo and/or are from body sites that are not normally sterile will be examined for Staphylococcus aureus, Pseudomonas aeruginosa, beta-hemolytic strep, vancomycin-resistant Enterococcus, Bacteroides, Parabacteroides, Clostridium perfringens and fungus. If any of these are isolated, the organism will be reported. Current interpretive data was last revised on 2019. Organism Antibiotic Method Susceptibility Staphylococcus aureus Daptomycin (SHARI) (SHARI) INTERPRET ATION Susceptible Staphylococcus aureus Ceftaroline (SHARI) INTERPRETATIO N Susceptible Staphylococcus aureus Doxycycline (SHARI) INTERPRETATIO N Susceptible Staphylococcus aureus Linezolid (SHARI) INTERPRETATIO N Susceptible Staphylococcus aureus Trimethoprim with Sulfamethoxazole (SHARI) INTERPRETATION Susceptible Staphylococcus aureus Clindamycin (SHARI) INTERPRETATIO N Susceptible Staphylococcus aureus Erythromycin (SHARI) INTERPRETATIO N Resistant Staphylococcus aureus Vancomycin (SHARI) INTERPRETATIO N Susceptible Staphylococcus aureus Oxacillin (SHARI) INTERPRETATIO N Resistant Staphylococcus aureus Cefazolin (SHARI) INTERPRETATIO N Resistant Staphylococcus aureus Ceftriaxone (SHARI) INTERPRETATIO N Resistant us Anette Apple MD LAB MICROBIOLOGY - GENERAL O RDERABLES Final Result [facility] ([facility]) 1 [facility] Department of Laboratories [place], [place] [id number] documented in this encounter Visit Diagnoses Diagnosis Ulcer with gangrene, with fat layer exposed (HCC) documented in this encounter Additional Health Concerns Infection Onset Date Last Indicated Resolved Time MRSA Comment:Wound from arm - 09/03/2023, 09/04/2023 09/03/2023 03/05/2024 documented as of this encounter Care Teams Financial Specialist Relationship Specialty Start Date End Date No, Physician PCP - General 01/31/21 Rashaun Benavidez MD [address] [place], [place] [address] [address] [id number] Consulting Physician Cardiology 07/08/22 Miscellaneous, Not In File 07/08/22 documented as of this encounter
--- OUTSIDE RECORDS SUMMARY | 2024-03-13 02:21 | XMS_ITS | Encounter Summary ---
Author Organization [facility] Healthcare Address [address] [place] [address] Care Team Providers Care Manager Acute Name Role Phone No, Physician Primary Care Provider [phone] Rashaun Benavidez MD Unavailable [phone] Miscellaneous, Not In File Unavailable Unava ilable Encounter Details Date Type Department Care Team (Late st Contact Info) Description 11/15/2023 Orders Only [facility] 1 [place] [address] Anette Apple MD [address] [place] [address] [place] [address] Social History Tobacco Use Types Packs/Day Years Used Date Smoking Tobacco: Never Smokeless Tobacco: Never Alcohol Use Standard Drinks/Week Comments Not Currently 0 (1 standard drink = 0.6 oz pur e alcohol) [facility] Utilities Answer Date Recorded In the past 12 months has [employer], gas, oil, or water [employer] threatened to shut off services in your home? No 09/05/2023 Social Connection and Isolation Panel [NHANES] A nswer Date Recorded In a typical week, how many times do you talk on the phone with family, friends, or neighbors? Once a week 09/05/2023 How often do you get together with friends or re latives? Once a week 09/05/2023 How often do you attend mormonism or lutheran serv ices? Never 09/05/2023 Do you belong to any clubs o r organizations such as mormonism groups, unions, fraternal or athletic groups, or [...] place to sleep or slept in a m[facility]p (including now)? No 08/06/2022 Housing Stability Vital Sign Answer Calvin e Recorded In the last 12 months, was t here a time when you were not able to pay the mortgage or rent on time? No 09/05/2023 In the past 12 months, how m any times have you moved where you were living? 1 09/05/2023 At any time in the past 12 m [facility], were you homeless or living in a mcfp (including now)? No 09/05/2023 Personal Safety Answer Date Recorded Have you ever been in or are you currently in a harmful physical or emotional relationship or is someone making you feel afraid or unsafe? 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 Gender Identity Not on file Sexual Orientation Not on file documented as of this encounter Ordered Prescriptions Prescription Sig Dispense Quantity Refills Last Filled Start Date End Date clindamycin (CLEOCIN) 150 mg capsuleIndications :Skin/Soft Tissue Infection Take 3 capsules (450 mg total) by mouth every 6 (six) hours for 10 days 120 capsule 11/15/2023 documented in this encounter Plan of Treatment Not on file documented as of this encounter Visit Diagnoses Not on filedocumented in this encounter Additional Health Concerns Infection Onset Date Last Indicated Resolved Time MRSA Comment:Wound from arm - 09/03/2023, 09/04/2023 09/03/2023 03/05/2024 documented as of this encounter Care Teams Manager Acute Relationship Specialty Start Date End Date No, Physician PCP - General 01/31/21 Rashaun Benavidez MD [address] [facility] [address] [id number] Consulting Physician Cardiology 07/08/22 Miscellaneous, Not In File 07/08/22 documented as of this encounter
--- OUTSIDE RECORDS SUMMARY | 2024-03-13 02:21 | XMS_ITS | CONTINUITY OF CARE DOCUMENT ---
Author Name sivakumarroseannejuliette Address Unknown Organization [facility] Address [address] [facility] [address] [place] [address] Phone [phone] Care Team Providers Care Flower Pot Press Operator Name Role Phone Tyrone GRIER, Mc Unavailable ROMAIN GRIER, JULIENNE Unavailable Unavailable SHANA AGUSTIN MD Unavailable [phone] INSURANCE PROVIDERS Payer name Policy type / Coverage type [place] MEDICAID (2) Medicaid [id number]
--- OUTSIDE RECORDS SUMMARY | 2024-03-13 02:21 | XMS_ITS | Encounter Summary ---
Author Organization [facility] Healthcare Address [address] [place] [address] Care Team Providers Care Primer Supervisor Name Role Phone No, Physician Primary Care Provider [phone] Rashaun Benavidez MD Unavailable [phone] Miscellaneous, Not In File Unavailable Unava ilable Encounter Details Date Type Department Care Team (Late st Contact Info) Description 11/09/2023 Orders Only [address] [address] Anette Apple MD [address] [place] [address] [place] [address] Social History Tobacco Use Types Packs/Day Years Used Date Smoking Tobacco: Never Smokeless Tobacco: Never Alcohol Use Standard Drinks/Week Comments Not Currently 0 (1 standard drink = 0.6 oz pur e alcohol) [facility] Utilities Answer Date Recorded In the past 12 months has [employer], gas, oil, or water company threatened [...] week 09/05/2023 How often do you attend rastafari or quaker serv ices? 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 Gender Identity Not on file Sexual Orientation Not on file documented as of this encounter Plan of Treatment Not on file documented as of this encounter Visit Diagnoses Not on filedocumented in this encounter Additional Health Concerns Infection Onset Date Last Indicated Resolved Time MRSA Comment:Wound from arm - 09/03/2023, 09/04/2023 09/03/2023 03/05/2024 documented as of this encounter Care Teams Primer Supervisor Relationship Specialty Start Date End Date No, Physician PCP - General 01/31/21 Rashaun Benavidez MD [address] [facility] [address] [id number] Consulting Physician Cardiology 07/08/22 Miscellaneous, Not In File 07/08/22 documented as of this encounter
--- OUTSIDE RECORDS SUMMARY | 2024-03-13 02:21 | XMS_ITS | Referral Summary ---
Author Organization [facility] Address [address] [place] [address] Care Team Providers Care Refrigeration Engineer Name Role Phone No, Physician Primary Care Provider [phone] Rashaun Benavidez MD Unavailable [phone] Miscellaneous, Not In File Unavailable Unava ilable Encounters Date Type Department Care Team Description 03/05/2024 Orders Only [address] [phone] Anette Apple MD 03/05/2024 Orders Only [facility] [address] [place] [id number] Antete Apple MD Abscess of arm, right (Primary Dx); Skin ulcer of upper arm, with fat layer exposed (HCC) 03/05/2024 12:45 PM ONCOLOGY TRANSPLANT NETWORK MANAGER Office Visit [facility] [address] [place] [phone] Abscess of arm, right; Skin ulcer of upper arm, with fat layer exposed (HCC) 02/15/2024 Orders Only [facility] [address] [place] [phone] Anette Apple MD from Last 3 Months Allergies Active Allergy Reactions Criticality Noted Date Comments Amoxicillin Rash Low Reaction: RASH Sulfa (Sulfonamide Antibiotics) Rash Medium 03/04/2020 Sumatriptan Anaphylaxis High Reaction: ANAPHYLAXIS Medications ibuprofen (ADVIL,MOTRIN) 600 mg tablet Take 1 tablet (600 mg total) by mouth every 8 (eight) hours as needed for pain 20 tablet 4 Active gabapentin (NEURONTIN) 300 mg capsule Take 1 capsule (300 mg total) by mouth 2 (two) times a day 60 capsule 4 Active hydrOXYzine (ATARAX) 25 mg tabletIndications :anxiety Take 2 tablets (50 mg total) by mouth every 8 (eight) hours as needed for anxiety 15 tablet 4 Active silver sulfadiazine (SILVADENE, SSD) 1 % cream Apply topically daily 400 g 1 4 03/16/20 24 Active chlorhexidine (HIBICLENS) 4 % external liquidIndications :Skin Disinfection Apply topically once a week Apply to gauze, soap the wounds, then rinse off. 118 mL 1 4 04/04/19 25 Active Active Problems Problem Noted Date Diagnosed Date Palpitations 09/03/2023 Cellulitis of left upper extremity 09/03/2023 Anxiety 08/19/2022 Essential hypertension 08/19/2022 Lipid screening 08/19/2022 Electrolyte imbalance 08/19/2022 Polymorphic ventricular tachycardia 08/19/2022 T wave inversion in EKG 08/04/2022 Ventricular tachycardia 07/01/2022 Fentanyl use disorder, moderate, dependence ([facility]) 03/04/2020 Opioid abuse HFrEF (heart failure with re duced ejection fraction) ([facility]) Immunizations Name Administration Dates Next Due Influenza, Quadrivalent, Spl it, Preservative Free, Intramuscular 03/07/2020(Deferred: Patient Refused) Social History Tobacco Use Types Packs/Day Years Used Date Smoking Tobacco: Never Smokeless Tobacco: Never Tobacco Cessation:Counseling Given: Not Answered Alcohol Use Standard Drinks/Week Comments Not Currently 0 (1 standard drink = 0.6 oz pur e alcohol) [facility] Utilities Answer Date Recorded In the past 12 months has [employer], gas, oil, or water [employer] threatened to shut off services in your home? No 09/05/2023 Social Connection and Isolation Panel [NHANES] A nswer Date Recorded In a typical week, how many times do you talk on the phone with family, friends, or neighbors? Once a week 09/05/2023 How often do you get together with friends or re latives? Once a week 09/05/2023 How often do you attend quaker or faith serv ices? Never 09/05/2023 Do you belong to any clubs o r organizations such as quaker groups, unions, fraternal or athletic groups, or [...] place to sleep or slept in a fdc (including now)? No 08/06/2022 Housing Stability Vital Sign Answer Calvin e Recorded In the last 12 months, was t here a time when you were not able to pay the mortgage or rent on time? No 09/05/2023 In the past 12 months, how m any times have you moved where you were living? 1 09/05/2023 At any time in the past 12 m [facility], were you homeless or living in a fdc (including now)? No 09/05/2023 Personal Safety Answer Date Recorded Have you ever been in or are you currently in a harmful physical or emotional relationship or is someone making you feel afraid or unsafe? Denies 10/05/2023 Comments No Sex and Gender Information Value Date Recorded Sex Assigned at Not on file Legal Sex Female 3:16 AM ONCOLOGY TRANSPLANT NETWORK MANAGER Gender Identity Not on file Sexual Orientation Not on file Last Filed Vital Signs Vital Sign Reading Time Taken Comments Blood Pressure 158/94 10/05/2023 7:14 PM CDT Pulse 104 10/05/2023 7:12 PM CDT Temperature 37.2 ??C (99 ??F) 10/05/2023 7:12 PM CDT Respiratory Rate 18 10/05/2023 7:12 PM CDT Oxygen Saturation 99% 10/05/2023 7:12 PM CDT Inhaled Oxygen Concentration - - Weight 74.4 kg (164 lb) 09/03/2023 10:25 PM CDT Height 165.1 cm (5' 5 ) 09/04/2023 4:30 PM CDT Body Mass Index 27.29 09/03/2023 10:25 PM CDT Plan of Treatment Not on file Procedures Procedure Name Priority Date/Time Associated Diagnosis Comments AEROBIC AND ANAEROBIC CULTURE AND GRAM STAIN Routine 03/05/2024 2:00 PM ONCOLOGY TRANSPLANT NETWORK MANAGER Abscess of arm, right TISSUE AEROBIC AND ANAEROBIC CULTURE AND GRAM STAIN Routine 03/05/2024 1:50 PM ONCOLOGY TRANSPLANT NETWORK MANAGER Skin ulcer of upper arm, with fat layer exposed (HCC) HEPATITIS PANEL, ACUTE Routine 09/05/2023 12:54 PM CDT from Last 3 Months or Most Recently Relevant to Health Maintenance Results * (ABNORMAL) Aerobic and anaerobic culture and gram stain Wound Arm, right (03/05/2024 2:00 PM ONCOLOGY TRANSPLANT NETWORK MANAGER) Direct Specimen Exam Stain: No polymorphonuclear leukocytes seen. No organisms seen. Comment:Testing performed by : [facility], [address] [place]., [address] Report Final Report: Few Staphylococcus aureus Methicillin resistant (MRSA) by penicillin binding protein 2a (PBP2a) testing. Few Streptococcus pyogenes (Group A Streptococci) Streptococcus pyogenes is uniformly susceptible to beta-lactam antibiotics and vancomycin. ??Routine susceptibility testing is not performed. (.) LAURA HORN (PRATIBHA) Comment:Testing performed by : [facility], [address] [place]., [address] Organism STAPHYLOCOCCUS AUREUS LAURA HORN (PRATIBHA) Organism STREPTOCOCCUS PYOGENES (GROUP A STREPTOCOCCI) LAURA HORN (PRATIBHA) Wound (Arm, right) 03/05/2024 2:00 PM ONCOLOGY TRANSPLANT NETWORK MANAGER 03/05/2024 7:46 PM ONCOLOGY TRANSPLANT NETWORK MANAGER Narrative LAURA HORN (PRATIBHA) - 03/09/2024 8:13 AM ONCOLOGY TRANSPLANT NETWORK MANAGER Specimen received on an ESwab. Testing performed by [facility] Microbiology Laboratory ([phone]) Specimens submitted from normally sterile body sites [...] 2019. Organism Antibiotic Method Susceptibility Staphylococcus aureus Vancomycin INTERPRETATION Susceptible Staphylococcus aureus Ceftaroline INTERPRETATION Susceptible Staphylococcus aureus Trimethoprim with Sulfamethoxazole INTERPRETATION Susceptible Staphylococcus aureus Linezolid INTERPRETATION Susceptible Staphylococcus aureus Doxycycline INTERPRETATION Susceptible Staphylococcus aureus Clindamycin INTERPRETATION Susceptible Staphylococcus aureus Erythromycin INTERPRETATION Resistant Staphylococcus aureus Oxacillin INTERPRETATION Resistant Staphylococcus aureus Cefazolin INTERPRETATION Resistant Staphylococcus aureus Ceftriaxone INTERPRETATION Resistant us Anette Apple MD LAB MICROBIOLOGY - GENERAL O RDERABLES Final Result LAURA HORN (PRATIBHA) 1 [facility] [place] [address] * (ABNORMAL) Tissue aerobic and anaerobic culture and gram stain Tissue Arm, left (03/05/2024 1:50 PMCST) Direct Specimen Exam Stain: No polymorphonuclear leukocytes seen. Moderate Gram Positive Cocci Comment:Testing performed by : [facility], [address] [place] [address]., [id number] Report Final Report: Moderate Staphylococcus aureus Methicillin resistant (MRSA) by penicillin binding protein 2a (PBP2a) testing. Moderate Streptococcus pyogenes (Group A Streptococci) Streptococcus pyogenes is uniformly susceptible to beta-lactam antibiotics and vancomycin. ??Routine susceptibility testing is not performed. (.) LAURA HORN (PRATIBHA) Comment:Testing performed by : [facility], [address] [place] [address]., [id number] Organism STAPHYLOCOCCUS AUREUS LAURA HORN (PRATIBHA) Organism STREPTOCOCCUS PYOGENES (GROUP A STREPTOCOCCI) LAURA HORN (PRATIBHA) Tissue (Arm, left) 03/05/2024 1:50 PM ONCOLOGY TRANSPLANT NETWORK MANAGER 03/05/2024 7:42 PM ONCOLOGY TRANSPLANT NETWORK MANAGER Narrative LAURA HORN (PRATIBHA) - 03/09/2024 8:14 AM ONCOLOGY TRANSPLANT NETWORK MANAGER Testing performed by [facility] Microbiology Laboratory ([phone]) Specimens submitted from normally sterile body sites [...] MICROBIOLOGY - GENERAL O RDERABLES Final Result Performing Organization Address City/[facility]/ZIP Co de Phone Number LAURA HORN ([place]) 1 [facility] [place] [address] * Hepatitis panel, acute Blood (09/05/2023 12:54 PM CDT) Hep A IgM Nonreactive Nonreactive Comment: Interpretive Data: If Hep A IgM Ab is reported as Equivocal, a new sample should be drawn in two weeks for testing. Current interpretive data was last revised on 19. Hep B core IgM Nonreactive Nonreactive [facility] Comment: Interpretive Data If HepB Core IgM Ab is reported as Equivocal, a new sample should be drawn in two weeks for testing. Current interpretive data was last revised on 19. Hep C Ab Nonreactive Nonreactive [facility] Comment: Interpretive Data Nonreactive: Antibodies to HCV not detected. Does NOT exclude the possibility of recent exposure to HCV. Equivocal: Equivocal for HCV antibodies. Supplemental molecular testing will be automatically performed to determine infection status in accordance with current CDC screening recommendations. ?? Reactive: Positive for HCV antibodies. ??This may represent current or past HCV infection. Supplemental molecular testing will be automatically performed to determine ??current infection status in accordance with current CDC screening recommendations. Interpretive data was last revised on 2019. HepBsAg Nonreactive Nonreactive [facility] Blood 09/05/2023 12:5 4 PM CDT 09/05/2023 1:19 PM CDT Janet Borges MD LAB M ICROBIOLOGY - GENERAL ORDERABLES Final Result LAURA [id number] [address] Department [place] [address] from Last 3 Months or Most Recently Relevant to Health Maintenance Additional Health Concerns Infection Onset Date Last Indicated MRSA Comment:Wound from arm - 09/03/2023, 09/04/2023 09/03/20232023 Insurance [facility] Advance Directives For more information, please contact: [phone] * Full Code (Latest Code Status on File) Date Activated Date Inactivated Comments 09/03/2023 11:12 PM 09/07/2023 7:35 PM * Full Code Date Activated Date Inactivated Comments 08/04/2022 8:38 PM 08/06/2022 10:36 PM * Full Code Date Activated Date Inactivated Comments 08/04/2022 6:23 PM 08/04/2022 8:38 PM * Full Code Date Activated Date Inactivated Comments 07/01/2022 8:35 PM 07/08/2022 11:08 PM * Full Code Date Activated Date Inactivated Comments 03/04/2020 1:05 PM 03/07/2020 1:54 PM Care Teams Refrigeration Engineer Relationship Specialty Start Date End Date No, Physician PCP - General 01/31/21 Rashaun Benavidez MD [address] [place] [address] Consulting Physician Cardiology 07/08/22 Miscellaneous, Not In File 07/08/22
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
--- OUTSIDE RECORDS SUMMARY | 2024-03-13 02:21 | XMS_ITS | Encounter Summary ---
Author Organization [facility] Healthcare Address [address] [place] [address] Care Team Providers Care Computer Systems Security Administrator Name Role Phone No, Physician Primary Care Provider [phone] Rashaun Benavidez MD Unavailable [phone] Miscellaneous, Not In File Unavailable Unava ilable Encounter Details Date Type Department Care Team (Late st Contact Info) Description 03/05/2024 Orders Only [facility] [address] [place], [place] [id number] Anette Apple MD [address] [place] [address] [place] [address] Abscess of arm, right (Primary Dx); Skin ulcer of upper arm, with fat layer exposed (HCC) Social History Tobacco Use Types Packs/Day Years Used Date Smoking Tobacco: Never Smokeless Tobacco: Never Alcohol Use Standard Drinks/Week Comments Not Currently 0 (1 standard drink = 0.6 oz pur e alcohol) [facility] Utilities Answer Date Recorded In the past 12 months has [employer] electric, gas, oil, or water company threatened [...] week 09/05/2023 How often do you attend gnosticist or samaritan serv ices? Never 09/05/2023 Do you belong to any clubs o r organizations such as gnosticist groups, unions, fraternal or athletic groups, or [...] place to sleep or slept in a jail (including now)? No 08/06/2022 Housing Stability Vital Sign Answer Calvin e Recorded In the last 12 months, was t here a time when you were not able to pay the mortgage or rent on time? No 09/05/2023 In the past 12 months, how m any times have you moved where you were living? 1 09/05/2023 At any time in the past 12 m [facility], were you homeless or living in a jail (including now)? No 09/05/2023 Personal Safety Answer Date Recorded Have you ever been in or are you currently in a harmful physical or emotional relationship or is someone making you feel afraid or unsafe? Denies 10/05/2023 Comments No Sex and Gender Information Value Date Recorded Sex Assigned at Not on file Legal Sex Female 3:16 AM PROFESSIONAL NURSING ASSISTANT Gender Identity Not on file Sexual Orientation Not on file documented as of this encounter Ordered Prescriptions Prescription Sig Dispense Quantity Refills Last Filled Start Date End Date chlorhexidine (HIBICLENS) 4 % external liquidIndications: Skin Disinfection Apply topically once a week Apply to gauze, soap the wounds, then rinse off. 118 mL 1 03/05/2024 documented in this encounter Plan of Treatment Not on file documented as of this encounter Results * (ABNORMAL) Aerobic and anaerobic culture and gram stain Wound Arm, right (03/05/2024 2:00 PM PROFESSIONAL NURSING ASSISTANT) Direct Specimen Exam Stain: No polymorphonuclear leukocytes seen. No organisms seen. Comment:Testing performed by : [facility], [address] [place] [address]., [id number] Report Final Report: Few Staphylococcus aureus Methicillin resistant (MRSA) by penicillin binding protein 2a (PBP2a) testing. Few Streptococcus pyogenes (Group A Streptococci) Streptococcus pyogenes is uniformly susceptible to beta-lactam antibiotics and vancomycin. ??Routine susceptibility testing is not performed. (.) LAURA HORN (PRATIBHA) Comment:Testing performed by : [facility], [address] [place] [address], [place]., [address] Organism STAPHYLOCOCCUS AUREUS LAURA HORN (PRATIBHA) Organism STREPTOCOCCUS PYOGENES (GROUP A STREPTOCOCCI) LAURA HORN (PRATIBHA) Wound (Arm, right) 03/05/2024 2:00 PM PROFESSIONAL NURSING ASSISTANT 03/05/2024 7:46 PM PROFESSIONAL NURSING ASSISTANT Narrative LAURA HORN (PRATIBHA) - 03/09/2024 8:13 AM PROFESSIONAL NURSING ASSISTANT Specimen received on an ESwab. Testing performed by [facility] Microbiology Laboratory ([phone]) Specimens submitted from normally sterile body sites [...] INTERPRETATION Resistant Staphylococcus aureus Ceftriaxone INTERPRETATION Resistant Anette Apple MD LAB MICROBIOLOGY - GENERAL O RDERABLES Final Result LAURA HORN (PRATIBHA) 1 [facility] Department [place] [address] * (ABNORMAL) Tissue aerobic and anaerobic culture and gram stain Tissue Arm, left (03/05/2024 1:50 PMCST) Direct Specimen Exam Stain: No polymorphonuclear leukocytes seen. Moderate Gram Positive Cocci Comment:Testing performed by : [facility], [address] [place] [address], [place]., [address] Report Final Report: Moderate Staphylococcus aureus Methicillin resistant (MRSA) by penicillin binding protein 2a (PBP2a) testing. Moderate Streptococcus pyogenes (Group A Streptococci) Streptococcus pyogenes is uniformly susceptible to beta-lactam antibiotics and vancomycin. ??Routine susceptibility testing is not performed. (.) LAURA HORN (PRATIBHA) Comment:Testing performed by : [facility], [address] [place] [address], [place]., [address] Organism STAPHYLOCOCCUS AUREUS LAURA HORN (PRATIBHA) Organism STREPTOCOCCUS PYOGENES (GROUP A STREPTOCOCCI) LAURA HORN (PRATIBHA) Tissue (Arm, left) 03/05/2024 1:50 PM PROFESSIONAL NURSING ASSISTANT 03/05/2024 7:42 PM PROFESSIONAL NURSING ASSISTANT Narrative LAURA HORN (PRATIBHA) - 03/09/2024 8:14 AM PROFESSIONAL NURSING ASSISTANT Testing performed by [facility] Microbiology Laboratory ([phone]) Specimens submitted from normally sterile body sites [...] RDERABLES Final Result LAURA HORN (PRATIBHA) 1 [facility] Department of Laboratories [place], [place] [id number] documented in this encounter Visit Diagnoses Diagnosis Abscess of arm, right Skin ulcer of upper arm, with fat layer exposed (HCC) Abscess of arm, right- Primary Skin ulcer of upper arm, with fat layer exposed (HCC) documented in this encounter Additional Health Concerns Infection Onset Date Last Indicated Resolved Time MRSA Comment:Wound from arm - 09/03/2023, 09/04/2023 09/03/2023 03/05/2024 documented as of this encounter Care Teams Computer Systems Security Administrator Relationship Specialty Start Date End Date No, Physician PCP - General 01/31/21 Rashaun Benavidez MD [address] [facility] [address] [facility]31 Consulting Physician Cardiology 07/08/22 Miscellaneous, Not In File 07/08/22 documented as of this encounter
--- OUTSIDE RECORDS SUMMARY | 2024-03-13 02:21 | XMS_ITS | Clinical Summary ---
Author Organization [facility] Address [address] [place] [address] Care Team Providers Care Architectural Designer Name Role Phone No, Physician Primary Care Provider [phone] Rashaun Benavidez MD Unavailable [phone] Miscellaneous, Not In File Unavailable Unava ilable Allergies Active Allergy Reactions Criticality Noted Date [...] tachycardia 07/01/2022 Fentanyl use disorder, moderate, dependence ([facility] /HCC) 03/04/2020 Opioid abuse HFrEF (heart failure with re duced ejection fraction) ([facility]) Encounters Date Type Department Care Team Description 03/05/2024 12:45 PM STILL OPERATOR HELPER Office Visit [facility] Medicine [address] [place] [address] Abscess of arm, right; Skin ulcer of upper arm, with fat layer exposed (HCC) 03/05/2024 Orders Only [address] [address] Anette Apple MD 03/05/2024 Orders Only [facility] Medicine [address] [place] [address] Anette Apple MD Abscess of arm, right (Primary Dx); Skin ulcer of upper arm, with fat layer exposed (HCC) 02/15/2024 Orders Only [facility] [address] [place] [address] Anette Apple MD from Last 3 Months Immunizations Name Administration Dates Next Due Influenza, Quadrivalent, Spl it, Preservative Free, Intramuscular 03/07/2020(Deferred: Patient Refused) Surgical History Surgery Date Site/Laterality Comments HYSTERECTOMY Medical History Medical History Date Comments Hypertension Ventricular dysfunction Social History Tobacco Use Types Packs/Day Years Used Date Smoking Tobacco: Never Smokeless Tobacco: Never Tobacco Cessation:Counseling Given: Not Answered Alcohol Use Standard Drinks/Week Comments Not Currently 0 (1 standard drink = 0.6 oz pur e alcohol) [facility] Utilities Answer Date Recorded In the past 12 months has [employer], gas, oil, or water [employer] threatened to shut off services in your home? No 09/05/2023 Social Connection and Isolation Panel [NHANES] A nswer Date Recorded In a typical week, how many times do you talk on the phone with family, friends, or neighbors? Once a week 09/05/2023 How often do you get together with friends or re latives? Once a week 09/05/2023 How often do you attend yarsanism or restorationist serv ices? Never 09/05/2023 Do you belong to any clubs o r organizations such as yarsanism groups, unions, fraternal or athletic groups, or [...] place to sleep or slept in a prison (including now)? No 08/06/2022 Housing Stability Vital Sign Answer Calvin e Recorded In the last 12 months, was t here a time when you were not able to pay the mortgage or rent on time? No 09/05/2023 In the past 12 months, how m any times have you moved where you were living? 1 09/05/2023 At any time in the past 12 m [facility], were you homeless or living in a prison (including now)? No 09/05/2023 Personal Safety Answer Date Recorded Have you ever been in or are you currently in a harmful physical or emotional relationship or is someone making you feel afraid or unsafe? Denies 10/05/2023 Comments No Sex and Gender Information Value Date Recorded Sex Assigned at Not on file Legal Sex Female 3:16 AM STILL OPERATOR HELPER Gender Identity Not on file Sexual Orientation Not on file Obstetrics History Last Filed Vital Signs Vital Sign Reading [...] 09/03/2023 10:25 PM CDT Plan of Treatment Health Maintenance Due Date Last Done Comments Breast Cancer Screening-Mammogram 1980 DTaP/Tdap/Td Vaccine (1 - Tdap) 10/26/1991 Varicella Vaccines (1 of 2 - 13+ 2-dose series) 1993 Hepatitis B Screening 1998 Regular Well Visit/Exam 18-64 1998 Influenza Vaccine (#1) 2023 , 01/28/2019, 12/26/2017, Additional history exists Depression Screening 09/02/2024 09/03/2023, 09/03/2023, 08/04/2022, Additional history exists Hepatitis C Screening Completed 09/05/2023, 023 HPV Vaccines Aged Out No longer eligi ble based on patient's age to complete this topic Pneumococcal vaccine <65 Aged Out No longer eligible based on patient's age to complete this topic Procedures Procedure Name Priority Date/Time Associated Diagnosis Comments AEROBIC AND ANAEROBIC CULTURE AND GRAM STAIN Routine 03/05/2024 2:00 PM STILL OPERATOR HELPER Abscess of arm, right TISSUE AEROBIC AND ANAEROBIC CULTURE AND GRAM STAIN Routine 03/05/2024 1:50 PM STILL OPERATOR HELPER Skin ulcer of upper arm, with fat layer exposed (HCC) HEPATITIS PANEL, ACUTE Routine 09/05/2023 12:54 PM CDT from Last 3 Months or Most Recently Relevant to Health Maintenance Results * (ABNORMAL) Aerobic and anaerobic culture and gram stain Wound Arm, right (03/05/2024 2:00 PM STILL OPERATOR HELPER) Direct Specimen Exam Stain: No polymorphonuclear leukocytes seen. No organisms seen. Comment:Testing performed by : [facility], [address] [place] [address]., [phone] Report Final Report: Few Staphylococcus aureus Methicillin resistant (MRSA) by penicillin binding protein 2a (PBP2a) testing. Few Streptococcus pyogenes (Group A Streptococci) Streptococcus pyogenes is uniformly susceptible to beta-lactam antibiotics and vancomycin. ??Routine susceptibility testing is not performed. (.) LAURA HORN (PRATIBHA) Comment:Testing performed by : [facility], [address] [place] [address]., [address] Organism STAPHYLOCOCCUS AUREUS LAURA HORN (PRATIBHA) Organism STREPTOCOCCUS PYOGENES (GROUP A STREPTOCOCCI) LAURA HORN (PRATIBHA) Wound (Arm, right) 03/05/2024 2:00 PM STILL OPERATOR HELPER 03/05/2024 7:46 PM STILL OPERATOR HELPER Narrative LAURA HORN (PRATIBHA) - 03/09/2024 8:13 AM STILL OPERATOR HELPER Specimen received on an ESwab. Testing performed by [facility] Microbiology Laboratory ([phone]) Specimens submitted from normally sterile body sites [...] Apple MD LAB MICROBIOLOGY - GENERAL O ALEERAARMEN Final Result LAURA HORN (PRATIBHA) 1 [facility] Department [place] [address] * (ABNORMAL) Tissue aerobic and anaerobic culture and gram stain Tissue Arm, left (03/05/2024 1:50 PMCST) Direct Specimen Exam Stain: No polymorphonuclear leukocytes seen. Moderate Gram Positive Cocci Comment:Testing performed by : [facility], [address] [place] [address]., [id number] Report Final Report: Moderate Staphylococcus aureus Methicillin resistant (MRSA) by penicillin binding protein 2a (PBP2a) testing. Moderate Streptococcus pyogenes (Group A Streptococci) Streptococcus pyogenes is uniformly susceptible to beta-lactam antibiotics and vancomycin. ??Routine susceptibility testing is not performed. (.) LAURA HORN (PRATIBHA) Comment:Testing performed by : [facility], [address] [place] [address], [place]., [address] Organism STAPHYLOCOCCUS AUREUS LAURA HORN (PRATIBHA) Organism STREPTOCOCCUS PYOGENES (GROUP A STREPTOCOCCI) LAURA HORN (PRATIBHA) Tissue (Arm, left) 03/05/2024 1:50 PM STILL OPERATOR HELPER 03/05/2024 7:42 PM STILL OPERATOR HELPER Narrative LAURA HORN (PRATIBHA) - 03/09/2024 8:14 AM STILL OPERATOR HELPER Testing performed by [facility] Microbiology Laboratory ([phone]) Specimens submitted from normally sterile body sites [...] INTERPRETATIO N Susceptible Staphylococcus aureus Erythromycin (SHARI) INTERPRETATI ON Resistant Staphylococcus aureus Vancomycin (SHARI) INTERPRETATIO N Susceptible Staphylococcus aureus Oxacillin (SHARI) INTERPRETATIO N Resistant Staphylococcus aureus Cefazolin (SHARI) INTERPRETATIO N Resistant Staphylococcus aureus Ceftriaxone (SHARI) INTERPRETATIO N Resistant us Anette Apple MD LAB MICROBIOLOGY - GENERAL O RDERABLES Final Result LAURA HORN (PRATIBHA) 1 [facility] Department of Laboratories [place], [place] [id number] * Hepatitis panel, acute Blood (09/05/2023 12:54 PM CDT) Hep A IgM Nonreactive Nonreactive Comment: Interpretive Data: If Hep A IgM Ab is reported as Equivocal, a new sample should be drawn in two weeks for testing. Current interpretive data was last revised on 19. Hep B core IgM Nonreactive Nonreactive LAURA Comment: Interpretive Data If HepB Core IgM Ab is reported as Equivocal, a new sample should be drawn in two weeks for testing. Current interpretive data was last revised on 19. Hep C Ab Nonreactive Nonreactive LAURA Comment: Interpretive Data Nonreactive: Antibodies to HCV [...] last revised on 2019. HepBsAg Nonreactive Nonreactive DONNATRAVIS KRYSTA Blood 09/05/2023 12:5 4 PM CDT 09/05/2023 1:19 PM CDT us Janet Borges MD LAB M ICROBIOLOGY - GENERAL ORDERABLES Final Result LAURA [address] [address] Department [place] [address] from Last 3 Months or Most Recently Relevant to Health Maintenance Additional Health Concerns Infection Onset Date Last Indicated MRSA Comment:Wound from arm - 09/03/2023, 09/04/2023 09/03/20232023 Insurance [facility] Advance Directives For more information, please contact: [phone] * Full Code (Latest Code Status on [...] 1:05 PM 03/07/2020 1:54 PM Care Teams Architectural Designer Relationship Specialty Start Date End Date No, Physician PCP - General 01/31/21 Rashaun Benavidez MD [address] [place] [address] Consulting Physician Cardiology 07/08/22 Miscellaneous, Not In File 07/08/22
--- OUTSIDE RECORDS SUMMARY | 2024-03-13 02:21 | XMS_ITS | Encounter Summary ---
Author Organization [facility] Healthcare Address [address] [place] [address] Care Team Providers Care Fuel Testing Technician Name Role Phone No, Physician Primary Care Provider [phone] Rashaun Benavidez MD Unavailable [phone] Miscellaneous, Not In File Unavailable Unava ilable Encounter Details Date Type Department Care Team (Late st Contact Info) Description 11/09/[address] [facility] [address] [place] [address] Anette Apple MD [address] [place] [address] [place] [address] Ulcer with gangrene, with fat layer exposed (HCC) (Primary Dx) Social History Tobacco Use Types Packs/Day Years Used Date Smoking Tobacco: Never Smokeless Tobacco: Never Alcohol Use Standard Drinks/Week Comments Not Currently 0 (1 standard drink = 0.6 oz pur e alcohol) [facility] Utilities Answer Date Recorded In the past 12 months has [employer] electric, gas, oil, or water [employer] threatened to shut off services in your [...] How often do you attend yarsanism or rastafarian serv ices? Never 09/05/2023 Do you belong [...] place to sleep or slept in a mcc (including now)? No 08/06/2022 Housing Stability Vital Sign Answer Calvin e Recorded In the last 12 months, was t here a time when you were not able to pay the mortgage or rent on time? No 09/05/2023 In the past 12 months, how m any times have you moved where you were living? 1 09/05/2023 At any time in the past 12 m [facility], were you homeless or living in a mcc (including now)? No 09/05/2023 Personal Safety Answer Date Recorded Have you ever been in or are you currently in a harmful physical or emotional relationship or is someone making you feel afraid or unsafe? Denies 10/05/2023 Comments No Sex and Gender Information Value Date Recorded Sex Assigned at Not on file Legal Sex Female 3:16 AM SAND MILL OPERATOR Gender Identity Not on file Sexual Orientation Not on file documented as of this encounter Plan of Treatment Not on file documented as of this encounter Results * (ABNORMAL) Tissue aerobic and anaerobic culture and gram stain Tissue Arm, right (11/09/2023 4:30 PM CDT) Direct Specimen Exam Stain: Few polymorphonuclear leukocytes seen. Moderate Gram Positive Cocci Comment:Testing performed by : [facility], [address] [place] [address]., [id number] Report Final Report: Moderate Staphylococcus aureus Methicillin resistant (MRSA) by penicillin binding protein 2a (PBP2a) testing. (.) LAURA HORN (PRATIBHA) Comment:Testing performed by : [facility], [address] [place] [address]., [address] Organism STAPHYLOCOCCUS AUREUS LAURA HORN (PRATIBHA) Tissue (Arm, right) 11/09/2023 4:30 PM CDT 11/09/2023 7:37 PM CDT Narrative LAURA HORN (PRATIBHA) - 11/16/2023 2:34 PM CDT Testing performed by [facility] Microbiology Laboratory ([phone]) Specimens submitted from normally sterile body sites [...] - GENERAL O RDERABLES Final Result [facility] ([place]) 1 [facility] Department [place] [address] documented in this encounter Visit Diagnoses Diagnosis Ulcer with gangrene, with fat layer exposed (HCC) Ulcer with gangrene, with fat layer exposed (HCC)- Primary documented in this encounter Additional Health Concerns Infection Onset Date Last Indicated Resolved Time MRSA Comment:Wound from arm - 09/03/2023, 09/04/2023 09/03/2023 03/05/2024 documented as of this encounter Care Teams Fuel Testing Technician Relationship Specialty Start Date End Date No, Physician PCP - General 01/31/21 Rashaun Benavidez MD [facility] [address] [place] [address] Consulting Physician Cardiology 07/08/22 Miscellaneous, Not In File 07/08/22 documented as of this encounter
--- OUTSIDE RECORDS SUMMARY | 2024-03-13 02:21 | XMS_ITS | Encounter Summary ---
Author Organization [facility] Healthcare Address [address] [place] [address] Care Team Providers Care Donor Relations Officer Name Role Phone No, Physician Primary Care Provider [phone] Rashaun Benavidez MD Unavailable [phone] Miscellaneous, Not In File Unavailable Unava ilable Encounter Details Date Type Department Care Team (Late st Contact Info) Description 03/05/2024 12:45 PM DEPUTY FIRE MARSHAL Office Visit [facility] [address] [place] [id number] Abscess of arm, right; Skin ulcer of upper arm, with fat layer exposed (HCC) Social History Tobacco Use Types Packs/Day Years Used Date Smoking Tobacco: Never Smokeless Tobacco: Never Alcohol Use Standard Drinks/Week Comments Not Currently 0 (1 standard drink = 0.6 oz pur e alcohol) [facility] Utilities Answer Date Recorded In the past 12 months has [employer] electric, gas, oil, or water company threatened [...] week 09/05/2023 How often do you attend orthodoxy or yazidism serv ices? Never 09/05/2023 Do you belong to any clubs o r organizations such as orthodoxy groups, unions, fraternal or athletic groups, or [...] to sleep or slept in a senior care (including now)? No 08/06/2022 Housing Stability Vital Sign Answer Calvin e Recorded In the last 12 months, was t here a time when you were not able to pay the mortgage or rent on time? No 09/05/2023 In the past 12 months, how m any times have you moved where you were living? 1 09/05/2023 At any time in the past 12 m [facility], were you homeless or living in a senior care (including now)? No 09/05/2023 Personal Safety Answer Date Recorded Have you ever been in or are you currently in a harmful physical or emotional relationship or is someone making you feel afraid or unsafe? 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 FIRE MARSHAL Gender Identity Not on file Sexual Orientation Not on file documented as of this encounter Plan of Treatment Not on file documented as of this encounter Procedures Procedure Name Priority Date/Time Associated Diagnosis Comments AEROBIC AND ANAEROBIC CULTURE AND GRAM STAIN Routine 03/05/2024 2:00 PM DEPUTY FIRE MARSHAL Abscess of arm, right TISSUE AEROBIC AND ANAEROBIC CULTURE AND GRAM STAIN Routine 03/05/2024 1:50 PM DEPUTY FIRE MARSHAL Skin ulcer of upper arm, with fat layer exposed (HCC) documented in this encounter Results * (ABNORMAL) Aerobic and anaerobic culture and gram stain Wound Arm, right (03/05/2024 2:00 PM DEPUTY FIRE MARSHAL) Direct Specimen Exam Stain: No polymorphonuclear leukocytes seen. No organisms seen. Comment:Testing performed by : [facility], [address] [place]., [address] Report Final Report: Few Staphylococcus aureus Methicillin resistant (MRSA) by penicillin binding protein 2a (PBP2a) testing. Few Streptococcus pyogenes (Group A Streptococci) Streptococcus pyogenes is uniformly susceptible to beta-lactam antibiotics and vancomycin. ??Routine susceptibility testing is not performed. (.) LAURA HORN (PRATIBHA) Comment:Testing performed by : [facility], [address] [place] [address], [place]., [address] Organism STAPHYLOCOCCUS AUREUS LAURA HORN (PRATIBHA) Organism STREPTOCOCCUS PYOGENES (GROUP A STREPTOCOCCI) LAURA HORN (PRATIBHA) Wound (Arm, right) 03/05/2024 2:00 PM DEPUTY FIRE MARSHAL 03/05/2024 7:46 PM DEPUTY FIRE MARSHAL Narrative LAURA HORN (PRATIBHA) - 03/09/2024 8:13 AM DEPUTY FIRE MARSHAL Specimen received on an ESwab. Testing performed by [facility] ([phone]) Specimens submitted from normally sterile body sites [...] RDERABLES Final Result LAURA HORN (PRATIBHA) [address] [facility] Department [place] [address] * (ABNORMAL) Tissue aerobic and anaerobic culture and gram stain Tissue Arm, left (03/05/2024 1:50 PMCST) Direct Specimen Exam Stain: No polymorphonuclear leukocytes seen. Moderate Gram Positive Cocci Comment:Testing performed by : [facility], [address] [place] [address], [place]., [address] Report Final Report: Moderate Staphylococcus aureus Methicillin resistant (MRSA) by penicillin binding protein 2a (PBP2a) testing. Moderate Streptococcus pyogenes (Group A Streptococci) Streptococcus pyogenes is uniformly susceptible to beta-lactam antibiotics and vancomycin. ??Routine susceptibility testing is not performed. (.) LAURA HORN (PRATIBHA) Comment:Testing performed by : [address] [place]., [address] Organism STAPHYLOCOCCUS AUREUS LAURA HORN (PRATIBHA) Organism STREPTOCOCCUS PYOGENES (GROUP A STREPTOCOCCI) LAURA HORN (PRATIBHA) Tissue (Arm, left) 03/05/2024 1:50 PM DEPUTY FIRE MARSHAL 03/05/2024 7:42 PM DEPUTY FIRE MARSHAL Narrative LAURA HORN (PRATIBHA) - 03/09/2024 8:14 AM DEPUTY FIRE MARSHAL Testing performed by [facility] ([phone]) Specimens submitted from normally sterile body sites [...] RDERABLES Final Result LAURA HORN (PRATIBHA) [address] [facility] Department [place] [address] documented in this encounter Visit Diagnoses Diagnosis Abscess of arm, right Skin ulcer of upper arm, with fat layer exposed (HCC) documented in this encounter Additional Health Concerns Infection Onset Date Last Indicated Resolved Time MRSA Comment:Wound from arm - 09/03/2023, 09/04/2023 09/03/2023 03/05/2024 documented as of this encounter Care Teams Donor Relations Officer Relationship Specialty Start Date End Date No, Physician PCP - General 01/31/21 Rashaun Benavidez MD [address] [place] [id number] [place] [address] Consulting Physician Cardiology 07/08/22 Miscellaneous, Not In File 07/08/22 documented as of this encounter
--- OUTSIDE RECORDS SUMMARY | 2024-03-13 02:21 | XMS_ITS | Encounter Summary ---
Author Organization [facility] Healthcare Address [address] [place] [address] Care Team Providers Care Coordinator Of Rehabilitation Services Name Role Phone No, Physician Primary Care Provider [phone] Rashaun Benavidez MD Unavailable [phone] Miscellaneous, Not In File Unavailable Unava ilable Encounter Details Date Type Department Care Team (Late st Contact Info) Description 03/05/2024 Orders Only [address] [address] Anette Apple MD [address] [place] [address] [place] [address] Social History Tobacco Use Types Packs/Day Years Used Date Smoking Tobacco: Never Smokeless Tobacco: Never Alcohol Use Standard Drinks/Week Comments Not Currently 0 (1 standard drink = 0.6 oz pur e alcohol) [facility] Utilities Answer Date Recorded In the past 12 months has [employer] electric, gas, oil, or water company threatened [...] week 09/05/2023 How often do you attend jew or yazidi serv ices? 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 Gender Identity Not on file Sexual Orientation Not on file documented as of this encounter Plan of Treatment Not on file documented as of this encounter Visit Diagnoses Not on filedocumented in this encounter Additional Health Concerns Infection Onset Date Last Indicated Resolved Time MRSA Comment:Wound from arm - 09/03/2023, 09/04/2023 09/03/2023 03/05/2024 documented as of this encounter Care Teams Coordinator Of Rehabilitation Services Relationship Specialty Start Date End Date No, Physician PCP - General 01/31/21 Rashaun Benavidez MD [address] [facility] [address] [place] [id number] Consulting Physician Cardiology 07/08/22 Miscellaneous, Not In File 07/08/22 documented as of this encounter
--- OUTSIDE RECORDS SUMMARY | 2024-03-13 02:22 | XMS_ITS | Encounter Summary ---
Author Organization [facility] Healthcare Address [address] [place] [address] Care Team Providers Care Veterinary Surgeon Name Role Phone No, Physician Primary Care Provider [phone] Rashaun Benavidez MD Unavailable [phone] Miscellaneous, Not In File Unavailable Unava ilable Encounter Details Date Type Department Care Team (Late st Contact Info) Description 09/03/2023 12:10 AM CDT Ancillary Procedure [facility] Outside Films Social History Tobacco Use Types Packs/Day Years Used Date Smoking Tobacco: Never Smokeless Tobacco: Never Alcohol Use Standard Drinks/Week Comments Not Currently 0 (1 standard drink = 0.6 oz pur e alcohol) Social Connection and Isolat ion Panel [NHANES] Answer Date Recorded In a typical week, how many times do you talk on the phone with family, friends, or neighbors? More than three times a week 08/06/2022 How often do you get togethe r with friends or relatives? More than three times a week 08/06/2022 How often do you attend chur ch or christian services? Never 08/06/2022 Do you belong to any clubs o r organizations such as buddhist groups, unions, fraternal or athletic groups, or school groups? No 08/06/2022 Attends Club or Organization Meetings Not on liz e 08/06/2022 Are you , , di vorced, , never , or living with a partner? 08/06/2022 AUDIT-C Answer Date Recorded Q1: How often [...] housing, medical care, and heating? Very hard 08/06/2022 PHQ-2 Answer Date Recorded PHQ-2 Total Score 0 08/05/2022 Hunger Vital Sign Answer Date Recorded Within the past 12 months, y ou worried that your food would run out before you got the money to buy more. Never true 08/07/19 23 Within the past 12 months, t he food you bought just didn't last and you didn't have money to get more. Never true 08/06/2022 PRAPARE - Transportation Answer Date Re corded In the past 12 months, has l ack of transportation kept you from medical appointments or from getting medications? No 07/26 In the past 12 months, has l ack of transportation kept you from meetings, work, or from getting things needed for daily living? No 08/06/2022 Housing Stability Vital Sign Answer [...] place to sleep or slept in a snf (including now)? No 08/06/2022 Personal Safety Answer Date Recorded Have you ever been in or are you currently in a harmful physical or emotional relationship or is someone making you feel afraid or unsafe? 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 us Not In File Miscellaneous IMG XR PROCEDURES Rachna l Result [facility] documented in this encounter Visit Diagnoses Not on filedocumented in this encounter Care Teams Veterinary Surgeon Relationship Specialty Start Date End Date No, Physician PCP - General 01/31/21 Rashaun Benavidez MD [address] [address] Consulting Physician Cardiology 07/08/22 Miscellaneous, Not In File 07/08/22 documented as of this encounter
--- OUTSIDE RECORDS SUMMARY | 2024-03-13 02:22 | XMS_ITS | Encounter Summary ---
Author Organization [facility] Address [address] [facility] [address] [place] [address] Care Team Providers Care Cosmetic Account Coordinator Name Role Phone No, Physician Primary Care Provider [phone] Rashaun Benavidez MD Unavailable [phone] Miscellaneous, Not In File Unavailable Unava ilable Encounter Details Date Type Department Care Team (Late st Contact Info) Description 07/21/2022 Telephone [facility] Cardiology [address] [address] Lucinda Murcia NP [address] [address] Social History Tobacco Use Types Packs/Day Years [...] often do you attend chur ch or christianity services? Never 08/06/2022 Do you belong to any clubs o r organizations such as sabianism groups, unions, fraternal or athletic groups, or [...] place to sleep or slept in a usp (including now)? No 08/06/2022 Personal Safety Answer Date Recorded Have you ever been in or are you currently in a harmful physical or emotional relationship or is someone making you feel afraid or unsafe? 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 Pt said she was told her Mg level was low and received a Mg infusion-reviewed lab results from the ED visit and her Mg was 1.9-told her I wasn't sure why she was given the Mg infusion with a normal level. Pt said she wasn't discharged on anything butshe was given a xanax or ativan and it helped. Told pt we dont prescribe that and given her historyI would not advise-pt verbalized understanding. Pt said she was concerned about her electrolytes-reviewed them with her and informed her they were all normal at her ED visit. Pt said the episode may have been related to her anxiety-she said she tries to meditate and relax but it doesn't always help. Advised pt to cont to monitor and contact us with any future concerns. Pt appreciated the time andinformation. * Telephone Encounter - Erna Feliciano - 07/23/2022 3:55 PM CDT Pt returning rosio angel. Contact [phone] * Telephone Encounter - Rosio Jimenez RN - 07/23/2022 3:42 PM CDT LM on VM requesting callback and informing pt that her MG level was not low in the ED this week-it was 1.9. * Telephone Encounter - Erna Feliciano - 07/23/2022 2:30 PM CDT Pt requesting to speak with a nurse about her electrolytes states that she was seen at the er. However her magnesium is still low. Contact [phone] * Telephone Encounter - Aysha Dye RN - 07/21/2022 2:16 PM CDT Lm on requesting call back to discuss * Telephone Encounter - Tia Aguilar - 07/21/2022 1:54 PM CDT Pt states a few days ago she was just sitting at work and hotness in her head that spread to her whole body. States she felt tingly and her HR was going from in the 90s to 140s. States she went to [facility] on 07/19 and they stated she was in carol ann sinus rhythm and that her magnesium was low. Pt requesting call to discuss. Contact: documented in this encounter Plan of Treatment Not on file documented as of this encounter Visit Diagnoses Not on filedocumented in this encounter Care Teams Cosmetic Account Coordinator Relationship Specialty Start Date End Date No, Physician PCP - General 01/31/21 Rashaun Benavidez MD [facility] [place] [address] Consulting Physician Cardiology 07/08/22 Miscellaneous, Not In File 07/08/22 documented as of this encounter
--- OUTSIDE RECORDS SUMMARY | 2024-03-13 02:22 | XMS_ITS | Encounter Summary ---
Author Organization [facility] Healthcare Address [address] [place] [address] Care Team Providers Care Planner Chief Name Role Phone No, Physician Primary Care Provider [phone] Rashaun Benavidez MD Unavailable [phone] Miscellaneous, Not In File Unavailable Unava ilable Encounter Details Date Type Department Care Team (Late st Contact Info) Description 09/03/2023 12:05 AM CDT Ancillary Procedure [facility] Outside Films [...] often do you attend chur ch or muslim services? Never 08/06/2022 Do you belong to any clubs o r organizations such as adventism groups, unions, fraternal or athletic groups, or [...] place to sleep or slept in a retirement (including now)? No 08/06/2022 Personal Safety Answer Date Recorded Have you ever been in or are you currently in a harmful physical or emotional relationship or is someone making you feel afraid or unsafe? 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 us Not In File Miscellaneous IMG XR PROCEDURES Rachna l Result [facility] documented in this encounter Visit Diagnoses Not on filedocumented in this encounter Care Teams Planner Chief Relationship Specialty Start Date End Date No, Physician PCP - General 01/31/21 Rashaun Benavidez MD [address] [address] Consulting Physician Cardiology 07/08/22 Miscellaneous, Not In File 07/08/22 documented as of this encounter
--- OUTSIDE RECORDS SUMMARY | 2024-03-13 02:22 | XMS_ITS | Encounter Summary ---
Author Organization [facility] Healthcare Address [address] [place] [address] Care Team Providers Care Discovery Guide Name Role Phone No, Physician Primary Care Provider [phone] Rashaun Benavidez MD Unavailable [phone] Miscellaneous, Not In File Unavailable Unava ilable Reason for Referral * Consultation (Routine) - Authorized Specialty Diagnoses / Procedures Referred By Caitlyn bates Referred To Contact Wound Care Diagnoses [place] [address] [employer] [place] [id number] Phone: tel: fax: [address] [phone] Referral ID Status Reason Start Date Expiration Date Visits Requested Visits Authorized [id number] Authorized Specialty Services Required 09/05/2023 10/04/2024 1 1 Question Answer Please select the performing region: [facility] [[id number]] Please select the performing department: [facility] OP WOUND CARE [] # of visits: 1 Comments BUE abscesses/cellulitis * Consultation (Routine) - Canceled Specialty Diagnoses / Procedures Referred By Caitlyn bates Referred To Contact Psychiatry Diagnoses Cellulitis of left upper extremity Fentanyl use disorder, moderate, dependence (CMS/HCC) (H[place]) [place] [address] [employer] [address] [address] Phone: tel: fax: Aung Garcia [place] [id number] [place] [address] Phone: tel: fax: Referral ID Status Reason Start Date Expiration Date Visits Requested Visits Authorized [id number] Canceled Specialty Services Required 09/07/2023 10/06/2024 1 1 Question Answer Please select the performing region: [facility] Group [[id number]] Please select the performing department: [facility] [[id number]] To provider: AUNG GARCIA [[id number]] # of visits: 1 Comments PLEASE CALL FOR APPOINTMENT Reason for Visit * Auth/Cert Specialty Diagnoses / Procedures Referred By Caitlyn t Referred To Contact Diagnoses UE WOUNDS FROM USING FENTANYL Procedures na Referral ID Status Reason Start Date Expiration Date Visits Re quested Visits Authorized [id number] 1 1 Encounter Details Date Type Department Care Team (Latest Contact Info) Description 09/03/2023 10:27 PM CDT - 09/07/2023 3:29 PM CDT Hospital Encounter [facility] [address] [place] [address] [place] [address] [place] [address] [place] [address] [place] [address] [place] [address] [place] [phone] Cellulitis of left upper extremity (Primary Dx); Fentanyl use disorder, moderate, dependence (CMS/HCC) (HCC) Discharge Disposition: Discharge to home or self care Social History Tobacco Use Types Packs/Day Years Used Date Smoking Tobacco: Never Smokeless Tobacco: Never Alcohol Use Standard Drinks/Week Comments Not Currently 0 (1 standard drink = 0.6 oz pur e alcohol) [facility] Utilities Answer Date Recorded In the past 12 months has [employer], gas, oil, or water [employer] threatened to shut off services in your home? No 09/05/2023 Social Connection and Isolation Panel [NHANES] A nswer Date Recorded In a typical week, how many times do you talk on the phone with family, friends, or neighbors? Once a week 09/05/2023 How often do you get together with friends or re latives? Once a week 09/05/2023 How often do you attend nondenominational or roman catholic serv ices? Never 09/05/2023 Do you belong to any clubs o r organizations such as nondenominational groups, unions, fraternal or athletic groups, or [...] place to sleep or slept in a [place] (including now)? No 08/06/2022 Housing Stability Vital Sign Answer Calvin e Recorded In the last 12 months, was t here a time when you were not able to pay the mortgage or rent on time? No 09/05/2023 In the past 12 months, how m any times have you moved where you were living? 1 09/05/2023 At any time in the past 12 m [facility], were you homeless or living in a [place] facility (including now)? No 09/05/2023 Personal Safety Answer Date Recorded Have you ever been in or are you currently in a harmful physical or emotional relationship or is someone making you feel afraid or unsafe? Denies 09/03/2023 Comments No Sex and Gender Information Value Date Recorded Sex Assigned at Not on file Legal Sex Female 3:16 AM [employer] W[employer] Gender Identity Not on file Sexual Orientation Not on file documented as of this encounter Last Filed Vital Signs Vital Sign Reading Time Taken Comments Blood Pressure 130/91 09/07/2023 11:40 AM CDT Pulse 74 09/07/2023 11:40 AM CDT Temperature 36.7 ??C (98.1 ??F) 09/07/2023 11:40 AM C DT Respiratory Rate 19 09/07/2023 11:40 AM CDT Oxygen Saturation 97% 09/07/2023 11:40 AM CDT Inhaled Oxygen Concentration - - Weight 74.4 kg (164 lb) 09/03/2023 10:25 PM CDT Height 165.1 cm (5' 5 ) 09/04/2023 4:30 PM CDT Body Mass Index 27.29 09/03/2023 10:25 PM CDT documented in this encounter Discharge Summaries * Mario Moss MD - 09/07/2023 1:33 PM CDT Images from the original note were not included. Inpatient Discharge Summary BRIEF OVERVIEW Admitting Provider: Nuzhat Parada MD Discharge Provider: Mario Moss MD Primary Care Physician at Discharge: Sadaf, Physician [phone] Admission Date: 09/03/2023 Discharge Date: 09/07/2023 Admission Location: [facility] [place] Problems/Diagnoses: Principal Problem: Cellulitis of left upper extremity Resolved Problems: No resolved hospital problems. DETAILS OF HOSPITAL STAY Presenting Problem/History of Present Illness: A 42-year-old woman with a history of depression, anxiety, bipolar disorder and IV fentanyl use [facility] with palpitations dyspnea and fever. She was found to have bilateral upper arm wounds. She was transferred to [facility] for Infectious diseases and General surgery evaluation. Hospital Course: Arrival Vitals [09/03/23 2225] Temp 36.9 ??C (98.4 ??F) Pulse 116 Resp 19 BP 144/91 SpO2 100 % FiO2 (%) She was placed on IV vancomycin. Wound cultures later yielded MRSA. Infectious diseases service wasconsulted. Daily wound care was provided by the wound care nursing team. CT scan of the upper extremities showed no radiologic evidence of an abscess or bony involvement. She reported mild opioid withdrawal symptoms which were managed with benzodiazepines, clonidine. Suboxone was also ordered as needed but was never requested by the patient. She was assessed by Behavioral Health and Psychiatry. Active Issues Requiring Follow-up: Test Results Pending at Discharge: Pending Labs Order Current Status Aerobic and anaerobic culture and gram stain Wound Arm, left Preliminary result Blood culture Blood Preliminary result Blood culture Blood Forearm, left Preliminary result Operative Procedures Performed: Other Procedures: Pertinent Test Results: Discharge Details Physical Exam at Discharge: Discharge Condition: stable Pulse: 74 Resp: 19 BP: 130/91 Temp: 36.7 ??C (98.1 ??F) Weight: 74.4 kg (164 lb) Pertinent Exam Findings at Discharge: Gen: In no apparent distress Neuro: Alert, oriented in time place and person. Pulmonary: Not dyspneic. No crackles or rhonchi. Cardiovascular: HS 1, 2 . regular rhythm. No murmurs Skin: No rash Discharge Disposition: Discharge to home or self care Code Status at Discharge: full code Discharge Instructions: Diet Instructions Eat a variety of healthy foods from all the food groups. Eat fruits, vegetables, whole grains, and fat-free or low-fat dairy foods. Whole grains include whole- wheat breads, cereals, pasta, and brown rice. Choose lean meats, poultry (chicken and turkey), fish, beans, eggs, and nuts. A healthy meal plan is low in unhealthy fats, salt, and added sugar. Healthy fats include olive oil and canola oil. Recommend to avoid sugary drinks like lemonade, regular soda, gatorade, and sweet tea. Additional resources are available online from the Academy of Nutrition and Dietetics at www.eatright.org Drink a high protein supplement such as Ensure Enlive/Complete or Boost Plus 1-2 times daily for poor appetite/meal intakes Recommend to continue drinking Andrés two times per day for 30 days or until your wound is healed. Andrés can be purchased at a reduced cost here at [facility] in the [facility] in Medical Office [address], or you may purchase it at [facility] or on [employer] Instructions: mix the packet of Andrés with 8-10 fluid ounces of water, diet clear soda, or whichever beverage you prefer. Once mixed, it must be consumed within 24 hours. Continue to include high sources of protein (chicken, turkey, peanut butter, nuts, beans, fish, eggs, cheese, Belgian yogurt, etc.) in your diet to press worker helper in wound healing. Additional information is available online at [email or web address] Please call the dietitian's office at [phone] if you have questions about nutrition. If you would like to see our outpatient dietitian please have your physician fax a referral to [phone], and you may call [phone] to make an appointment. For any other questions you can call and ask to be connected to the floor that you were discharged from. Discharge Medications: Current Medications TAKE these medications doxycycline 100 mg capsule Take 1 tablet/capsule (100 mg total) by mouth 2 (two) times a day for 12 days For: Skin/Soft Tissue Infection Commonly known as: VIBRAMYCIN gabapentin 300 mg capsule Take 1 capsule (300 mg total) by mouth 2 (two) times a day Commonly known as: NEURONTIN hydrOXYzine 25 mg tablet Take 2 tablets (50 mg total) by mouth every 8 (eight) hours as needed for anxiety For: anxious Commonly known as: ATARAX ibuprofen 600 mg tablet Take 1 tablet (600 mg total) by mouth every 8 (eight) hours as needed for pain Commonly known as: ADVIL,MOTRIN Outpatient Follow-Up: Contact Information for Follow-ups [facility] [address] [facility] [phone] Next Steps: Follow up Comments: BUE abscesses/cellulitis Questions: Please select the performing region: [facility] Please select the performing department: [facility] WOUND CARE # of visits: 1 Referral Status: Pending Authorization Aung Garcia MD Specialty: Psychiatry, Neurology, Internal Medicine [id number] [place] [address] Next Steps: Follow up Comments: PLEASE CALL FOR APPOINTMENT Questions: Please select the performing region: [facility] Medical Group Please select the performing department: [facility] To provider: AUNG GARCIA # of visits: 1 Referral Status: Pending Authorization [facility] Specialty: Infectious Diseases [address] [place] [id number] Next Steps: Follow up on 09/19/2023 Instructions: This will be your provider for wound care. They will call you to arrange the first appointment. [address] [address] Next Steps: Call Instructions: Please, contact [facility] at [phone] to schedule appointments for a new primary care doctor, mental health services and substance use. For the primary care doctor appointment they will try to schedule same day so be sure to call early in the morning to get an appointment. DC TIME- 32 MIN documented in this encounter Discharge Instructions * Discharge Instructions* Tyesha Colunga LCSW - 09/04/2023 10:36 AM CDT Images from the original note were not included. MENTAL HEALTH CRISIS/URGENT CARE SERVICES National Suicide Prevention Hotline (Available by calling or texting 314 to speak with a counselor for support or additional resources) [facility] [phone] (Crisis hotline) [facility] [phone] (Crisis hotline) Call for Help-Living Room Crisis Support [phone] (Immediate crisis and mental health support in a calm, comfortable environment) [facility]ERS FOR UNINSURED OR MEDICAID [facility] [phone] ([facility]) [facility] [phone] ([facility]) SUBSTANCE USE TREATMENT [facility] Warm Hand Off- [phone] [facility] Medical Stabilization - [phone] [facility] Crisis Residential/Stabilization For Crisis Residential services in the [facility], please call [phone] andask for the Crisis Residential Unit. For Crisis Stabilization services in [facility] please call [phone] and ask for the Crisis Stabilization Unit. [facility] provides 24 hour short term supervised care for persons aged 18 years and older experiencing an acute psychiatric crisis that does not require hospitalization. The average length of stay is 14 days. Admission to our crisis unit is voluntary; we only accept those individuals who choose to come to the unit. The facility is not prepared to work with persons who may be acutely suicidal or homicidal or who are experiencing serious medical problems or complications. The unit is staffed with nurses and behavioral health technicians and is not a hospital. During their stay on the unit, clients spend time in groups that meet four or more times a day. Thegroups provide education on topics helpful to individuals in crisis and clients are expected to attend and to participate actively. [facility] will provide a safe and supportive environment conductive to achieving stability. Clients are expected to contribute to their recovery by assuming responsibility for several tasks including: Personal care and grooming Making one???s bed and keeping one???s bedroom neat Laundering and returning towels, linens, scrubs and other items issued by [facility]. Taking all medications as prescribed by the doctor Cleaning up after using the kitchen, common area, bathroom and shower area. Maintaining a peaceful environment Following one???s own treatment plan No alcohol or drugs are allowed on the unit. All medications are dispensed by [facility] nurses at appropriate times. No visitors are allowed on the unit but there is a phone available for clients to use and make calls. Persons may refer themselves for crisis residential/stabilization services and may be referred by hospitals, police departments, mental health agencies, social service agencies, and families. Counseling Services: [facility] [address] [place] [address] [address] [facility] [address] [place] [address] Counseling, therapy, and evaluations to individuals, groups, and families; open Tuesday through Tuesday from 8:30 AM to 5 PM. [employer] [facility] [place] [address] Counseling services; specializes in disordered eating, anxiety, grief, ADHD, behavioral issues, anddepression; serves adults and children. [facility] [address] [place] [address] Counseling services [facility] [address] [facility] Counseling services; open from Tuesday through Tuesday from 8:30 AM to 5 PM. [facility]: BEHAVIORAL HEALTH [address] [place] [address] [address] [place] [address] Counseling services; open from Tuesday through Tuesday from 7 AM to 5:30 PM [facility] [address] [place] [address] Counseling services; specializes in ADD/ADHD testing and evaluation, eating disorders, anxiety, grief, behavior issues, and depression [facility] [address] [place] [address] Counseling services for children ages 4 and up, adults, family, couples. [facility] [address] [place] [address] [address] Counseling for marriage, family therapy, children, and domestic violence; open Tuesday through Tuesday from 8 AM to 5 PM. [facility] [address] [facility] [place] [address] 3 [place] [address] Counseling services; specializes in ADD/ADHD, autism spectrum, disordered eating, play therapy, grief, loss, self-harming behaviors, art therapy, infertility issues, and oppositional defiant disorder [facility] [address] [place] [address] Individual counseling, family counseling, group counseling, community education, professional training, and mental health programs for the community available for children, adolescents, and adults. [facility] [address] [place] [address] Provides no cost or reduced cost marriage/family/individual counseling. [facility] [address] [place] [address] Counseling services [facility] [address] [place] [address] [address]. [address] [place] [address] [address]. 204 Therapeutic services are provided to individuals, couples, and families by therapists that focuses on helping clients cope with life's challenges in order to return to their optimum level of functioning; accepts insurance and self-pay sliding scale. [facility] [address] [place] [address] Behavioral health services and family counseling. [facility] [address] [place] [address] Outpatient therapy services; open Tuesday and Tuesday from 9 AM to 5 PM, Tuesday and from10 AM to 5 PM, and Tuesday from 10 AM to 3 PM. [facility] [address] [facility] 4th [place] [address] Mental health outpatient counseling, evaluation, consultation, group, family, and individual therapy for children, adolescents, adults, and seniors. [facility] [address] [place] [address] Counseling services [facility] [address] [place] [address] [address] Evidence-based treatment models which incorporate individual, family, and group therapy to address each family's unique needs and strengths; works to prevent childhood exposure to violence and abuse through direct therapeutic work with families. [facility] [address] [address] Counseling services; open Tuesday through Tuesday from 8:30 AM to 5 PM. Counseling services; specializes in ADD/ADHD testing and evaluation, eating disorders, anxiety, grief, behavior issues, and depression [facility] [address] [place] [address] Counseling services for children ages 4 and up, adults, family, couples. [facility] [address] [place] [address] [address] Counseling for marriage, family therapy, children, and domestic violence; open Tuesday through Tuesday from 8 AM to 5 PM. [facility] [address] [facility] [place] [address] [place] [address] [place] [address] Counseling services; specializes in ADD/ADHD, autism spectrum, disordered eating, play therapy, grief, loss, self-harming behaviors, art therapy, infertility issues, and oppositional defiant disorder [facility] [address] [place] [address] Individual counseling, family counseling, group counseling, community education, professional training, and mental health programs for the community available for children, adolescents, and adults. [facility] [address] [place] [address] Provides no cost or reduced cost marriage/family/individual counseling. [facility] [address] [place] [address] Counseling services [facility] [address] [place] [address] [address]. 233 Follow up at: [facility] [address] [place] [address] Cleanse daily with antimicrobial soap. Pat dry. Apply ABD pad and kerlix wrap. Place DES wrap from elbow to shoulder. Change dressings daily and as needed. * Discharge Instr - Diet* Roxann Avendano, RD - 09/04/2023 4:33 PM CDT Eat a variety of healthy foods from all the food groups. Eat fruits, vegetables, whole grains, and fat-free or low-fat dairy foods. Whole grains include whole- wheat breads, cereals, pasta, and brown rice. Choose lean meats, poultry (chicken and turkey), fish, beans, eggs, and nuts. A healthy meal plan is low in unhealthy fats, salt, and added sugar. Healthy fats include olive oil and canola oil. Recommend to avoid sugary drinks like lemonade, regular soda, gatorade, and sweet tea. Additional resources are available online from the Academy of Nutrition and Dietetics at www.eatright.org Drink a high protein supplement such as Ensure Enlive/Complete or Boost Plus 1-2 times daily for poor appetite/meal intakes Recommend to continue drinking Andrés two times per day for 30 days or until your wound is healed. Andrés can be purchased at a reduced cost here at [facility] in the [facility] in Medical Office [address], or you may purchase it at [facility] or on [employer] Instructions: mix the packet of Andrés with 8-10 fluid ounces of water, diet clear soda, or whichever beverage you prefer. Once mixed, it must be consumed within 24 hours. Continue to include high sources of protein (chicken, turkey, peanut butter, nuts, beans, fish, eggs, cheese, Belgian yogurt, etc.) in your diet to press worker helper in wound healing. Additional information is available online at [email or web address] Please call the dietitian's office at [phone] if you have questions about nutrition. If you would like to see our outpatient dietitian please have your physician fax a referral to [phone], and you may call [phone] to make an appointment. For any other questions you can call and ask to be connected to the floor that you were discharged from. documented in this encounter Medications at Time of Discharge gabapentin (NEURONTIN) 300 mg capsule Take 1 capsule (300 mg total) by mouth 2 (two) times a day 60 capsule 09/07/2023 hydrOXYzine (ATARAX) 25 mg tabletIndications :anxiety Take 2 tablets (50 mg total) by mouth every 8 (eight) hours as needed for anxiety 15 tablet 09/07/2023 ibuprofen (ADVIL,MOTRIN) 600 mg tablet Take 1 tablet (600 mg total) by mouth every 8 (eight) hours as needed for pain 20 tablet 09/07/2023 doxycycline (VIBRAMYCIN) 100 mg capsuleIndication s:Skin/Soft Tissue Infection Take 1 tablet/capsul e (100 mg total) by mouth 2 (two) times a day for 12 days 24 tablet/capsule 09/07/2023 09/19/2023 documented as of this encounter Ordered Prescriptions Prescription Sig Dispense Quantity Refills Last Filled Start Date End Date hydrOXYzine (ATARAX) 25 mg tabletIndications: anxiety Take 2 tablets (50 mg total) by mouth every 8 (eight) hours as needed for anxiety 15 tablet 09/07/2023 gabapentin (NEURONTIN) 300 mg capsule Take 1 capsule (300 mg total) by mouth 2 (two) times a day 60 capsule 09/07/2023 ibuprofen (ADVIL,MOTRIN) 600 mg tablet Take 1 tablet (600 mg total) by mouth every 8 (eight) hours as needed for pain 20 tablet 09/07/2023 doxycycline (VIBRAMYCIN) 100 mg capsuleIndications :Skin/Soft Tissue Infection Take 1 tablet/capsul e (100 mg total) by mouth 2 (two) times a day for 12 days 24 tablet/capsule 09/07/2023 documented in this encounter Discharge Disposition Disposition Code Departure Means Destination Comment s Discharge to home or self care documented in this encounter Progress Notes * Alejandro Carrillo MD - 09/07/2023 1:10 PM CDT Images from the original note were not included. Infectious Disease Gely Allen Admit Date: 09/03/2023 LOS: 4 Days Requesting provider: Flavia Lange MD Reason for consult: cellullitis/abscess Interval Course Blood cultures remain negative, CT bilateral upper arms negative for abscess New Symptoms Afebrile, denies any new complaints ATBX Vancomycin Data Vitals: 09/07/23 0136 09/07/23 0420 09/07/23 0729 09/07/23 1140 BP: 121/71 112/76 113/67 130/91 BP Location: Right arm Right arm Right arm Right arm Patient Position: HOB 30 degrees HOB 30 degrees HOB 30 degrees HOB 30 degrees Pulse: 81 91 68 74 Resp: 18 19 19 Temp: 36.9 ??C (98.4 ??F) 36.7 ??C (98.1 ??F) 36.8 ??C (98.2 ??F) 36.7 ??C (98.1 ??F) TempSrc: Oral Oral Oral Oral SpO2: 97% 98% 97% 97% Weight: Height: Temp (24hrs), Av.9 ??C (98.4 ??F), Min:36.7 ??C (98.1 ??F), Max:37.3 ??C (99.1 ??F) Recent Labs Lab Units 09/04/23 1203 WBC K/cumm 7.0 HEMOGLOBIN g/dL 10.6* HEMATOCRIT % 32.8* PLATELETS K/cumm 188 Recent Labs Lab Units 09/04/23 1203 BUN SERUM mg/dL 15 CREATININE mg/dL 1.00 Scheduled Meds:enoxaparin, 40 mg, subcutaneous, Daily-2100 gabapentin, 300 mg, oral, BID sodium chloride 0.9%, 0.5-20 mL, intra-catheter, Q8H KENTRELL vancomycin, 15 mg/kg, intravenous, Q12H Continuous Infusions: PRN Meds:. acetaminophen buprenorphine-naloxone cloNIDine OR cloNIDine [START ON 09/08/2023] cloNIDine OR [START ON 09/08/2023] cloNIDine [START ON 09/10/2023] cloNIDine OR [START ON 09/10/2023] cloNIDine docusate sodium hydrOXYzine loperamide loperamide LORazepam methocarbamoL ondansetron ondansetron ODT OR ondansetron traZODone Exam General appearance: alert, cooperative, no distress HEENT: mmm, no thrush, no icterus Neck: No masses, trachea midline, supple. Heart: regular rhythm, normal S1 and S2, without murmurs, rubs or gallops Lungs: breath sounds normal and symmetric; no rales or wheezes Abdomen: soft without mass, non-tender, with normal bowel sounds Extremities: no clubbing, cyanosis or edema Joint: no joint deformities or effusions Skin: decretoice lesiosn with purulence on b/l upper arms. Neuro: A+Ox3, Moves all 4 extremities, CN 2-12 grossly intact Lab: 69 bld cx no growth to date 09/03 wound cx MRSA Assessment 42 year odl female with depression, HTN, opiate use disorder with IV fentanyl B/l arm cellulitis and necrotic lesions ?Xylazine related Fever r/o BSI Plan Continue IV vanc Final wound culture if sensitive okay to discharge patient home on doxycycline 100 mg b.i.d. to 09/18 Follow bld cxs, no growth CT bilateral upper arm Wound care to arms Hepatitis and HIV negative * Stefany Strickland, [facility] - 09/06/2023 9:39 PM CDT Images from the original note were not included. Pharmacokinetic Consult - Vancomycin Dosing Gely Allen is a 42 y.o. female who has been consulted for vancomycin dosing for skin/soft tissue infection. Relevant clinical data and objective history reviewed: Creatinine Date Value Ref Range Status 09/04/2023 1.00 0.60 - 1.10 mg/dL Final 08/04/2022 0.93 0.60 - 1.10 mg/dL Final 07/19/2022 1.08 0.60 - 1.10 mg/dL Final BUN Date Value Ref Range Status 09/04/2023 15 6 - 25 mg/dL Final 08/04/2022 15 8 - 25 mg/dL Final 07/19/2022 16 8 - 25 mg/dL Final Estimated Creatinine Clearance: 65.9 mL/min (by Cockcroft-Gault based on SCr of 1 mg/dL). I/O last 3 completed shifts: In: 1260 [P.O.:1260] Out: - Lab Results Component Value Date/Time WBC 7.0 09/04/2023 12:03 PM HGB 10.6 (L) 09/04/2023 12:03 PM HCT 32.8 (L) 09/04/2023 12:03 PM MCV 83.2 09/04/2023 12:03 PM LABPLAT 188 09/04/2023 12:03 PM Temp Readings from Last 3 Encounters: 09/06/23 37.3 ??C (99.1 ??F) (Oral) 08/06/22 37 ??C (98.6 ??F) (Oral) 07/19/22 36.8 ??C (98.3 ??F) (Tympanic) Patient Weight 09/03/23 74.4 kg (164 lb) Abnormal Microbiology Results (10 days) Collected Updated Procedure Result Status 09/05/2023 0633 09/05/2023 0649 Urinalysis reflex to microscopic and culture Urine [[id number]] (Abnormal) Urine Final result Component Value Color, ur Mayra Clarity, ur Clear Specific gravity, ur 1.028 pH, urine 5.0 Protein, ur ql Negative Glucose, ur ql Negative Ketones, ur Negative Bilirubin, ur Negative Blood, ur Negative Urobilinogen, ur 4.0 Nitrite, ur Negative Leukocyte esterase, ur 1+ UA reflex comment Reflex to microscopic UA will be performed. 09/04/2023 1142 09/06/2023 0759 Aerobic culture and gram stain Wound Arm, right [[id number]] (Abnormal) Wound from Arm, right Preliminary result Component Value Direct Specimen Exam Stain: No polymorphonuclear leukocytes seen. Few Gram Positive Cocci Report Preliminary Report: Moderate Staphylococcus aureus Methicillin resistant (MRSA) by penicillin binding protein 2a (PBP2a) testing. Susceptibility testing results to follow. Organism STAPHYLOCOCCUS AUREUS 09/03/2023 2353 09/06/2023 0759 Aerobic and anaerobic culture and gram stain Wound Arm, left [[id number]] (Abnormal) Wound from Arm, left Preliminary result Component Value Direct Specimen Exam Stain: Rare polymorphonuclear leukocytes seen. Abundant Gram Positive Cocci Report Preliminary Report: Abundant Staphylococcus aureus Methicillin resistant (MRSA) by penicillin binding protein 2a (PBP2a) testing. Susceptibility testing results to follow. Organism STAPHYLOCOCCUS AUREUS Assessment/Plan The patient has been receiving vancomycin 1000 mg every 12 hours. Vancomycin trough level returned as 15.5 on 09/06/23 at 203. No adjustment to dose or frequency necessary. Next vancomycin trough level ordered to be drawn 09/08 at 0830. Pharmacy will continue to follow the patient???s culture results and clinical progress daily. Day 2 of therapy Stefany Strickland RPh * Alejandro Carrillo MD - 09/06/2023 2:06 PM CDT Images from the original note were not included. Infectious Disease Gely Allen Admit Date: 09/03/2023 LOS: 3 Days Requesting provider: Flavia Lange MD Reason for consult: cellullitis/abscess Interval Course Blood cultures remain negative New Symptoms Afebrile, denies any new complaints ATBX Vancomycin Data Vitals: 09/05/23 2300 09/06/23 0300 09/06/23 0825 09/06/23 1221 BP: 99/55 108/57 123/73 127/68 BP Location: Right arm Left arm Left arm Left arm Patient Position: HOB 30 degrees HOB 30 degrees Pulse: 75 75 93 91 Resp: 18 18 18 18 Temp: 36.7 ??C (98.1 ??F) 36.6 ??C (97.8 ??F) 36.7 ??C (98.1 ??F) 37 ??C (98.6 ??F) TempSrc: Oral Oral Oral Oral SpO2: 97% 99% 98% 97% Weight: Height: Temp (24hrs), Av.8 ??C (98.2 ??F), Min:36.6 ??C (97.8 ??F), Max:37 ??C (98.6 ??F) Recent Labs Lab Units 09/04/23 1203 WBC K/cumm 7.0 HEMOGLOBIN g/dL 10.6* HEMATOCRIT % 32.8* PLATELETS K/cumm 188 Recent Labs Lab Units 09/04/23 1203 BUN SERUM mg/dL 15 CREATININE mg/dL 1.00 Scheduled Meds:enoxaparin, 40 mg, subcutaneous, Daily-2100 gabapentin, 300 mg, oral, BID sodium chloride 0.9%, 0.5-20 mL, intra-catheter, Q8H KENTRELL vancomycin, 15 mg/kg, intravenous, Q12H Continuous Infusions: PRN Meds:. acetaminophen buprenorphine-naloxone cloNIDine OR cloNIDine [START ON 09/08/2023] cloNIDine OR [START ON 09/08/2023] cloNIDine [START ON 09/10/2023] cloNIDine OR [START ON 09/10/2023] cloNIDine docusate sodium hydrOXYzine loperamide loperamide LORazepam methocarbamoL ondansetron ondansetron ODT OR ondansetron traZODone Exam General appearance: alert, cooperative, no distress HEENT: mmm, no thrush, no icterus Neck: No masses, trachea midline, supple. Heart: regular rhythm, normal S1 and S2, without murmurs, rubs or gallops Lungs: breath sounds normal and symmetric; no rales or wheezes Abdomen: soft without mass, non-tender, with normal bowel sounds Extremities: no clubbing, cyanosis or edema Joint: no joint deformities or effusions Skin: decretoice lesiosn with purulence on b/l upper arms. Neuro: A+Ox3, Moves all 4 extremities, CN 2-12 grossly intact Lab: 69 bld cx no growth to date 09/03 wound cx MRSA Assessment 42 year odl female with depression, HTN, opiate use disorder with IV fentanyl B/l arm cellulitis and necrotic lesions ?Xylazine related Fever r/o BSI Plan Continue IV vanc Final wound culture Recommend surgery consultation Follow bld cxs, no growth CT bilateral upper arm Wound care to arms Hepatitis and HIV negative * Mario Moss MD - 09/06/2023 8:54 AM CDT Images from the original note were not included. General Medicine Daily Progress Patient is a 42 y.o. female who was transferred from [facility] for bilateral upper extremity wounds and ID evaluation. Arrival Vitals Temp 09/03/23 222 36.9 ??C (98.4 ??F) Pulse 09/03/23 222 116 Resp 09/03/235 19 BP 09/03/23 222 144/91 SpO2 09/03/232224 100 % Temp src 09/03/23 222 Oral Heart Rate Source 09/04/23 0000 Monitor Patient Position 09/03/232224 Sitting BP Location 09/03/232224 Left arm FiO2 (%) -- Length of stay: 3 days Interval History: Subjective: Reports mild muscle aches Objective: Vitals: 24hr Min/Max: Temp Min: 36.6 ??C (97.8 ??F) Max: 36.8 ??C (98.2 ??F) Pulse Min: 75 Max: 93 BP Min: 99/55 Max: 126/69 Resp Min: 18 Max: 18 SpO2 Min: 96 % Max: 99 % Most Recent : Vitals: 09/05/23 1900 09/05/23 2300 09/06/23 0300 09/06/23 0825 BP: 102/60 99/55 108/57 123/73 BP Location: Right arm Right arm Left arm Left arm Patient Position: HOB 30 degrees Pulse: 79 75 75 93 Resp: 18 18 18 18 Temp: 36.8 ??C (98.2 ??F) 36.7 ??C (98.1 ??F) 36.6 ??C (97.8 ??F) 36.7 ??C (98.1 ??F) TempSrc: Oral Oral Oral Oral SpO2: 96% 97% 99% 98% Weight: Height: I/O last 2 completed shifts: In: 780 [P.O.:780] Out: - No intake/output data recorded. Physical Exam: Gen: Intermittently tearful Neuro: Alert, oriented in time place and person. Pulmonary: Not dyspneic. No crackles or rhonchi. Cardiovascular: HS 1, 2 . regular rhythm. GI: abdomen not distended, soft, non-tender. Musculoskeletal: No joint swelling, tenderness or warmth. Skin: Upper arms wrapped with wound dressing Current Meds: enoxaparin, 40 mg, subcutaneous, Daily-2100 gabapentin, 300 mg, oral, BID sodium chloride 0.9%, 0.5-20 mL, intra-catheter, Q8H KENTRELL vancomycin, 15 mg/kg, intravenous, Q12H PRN Medications Medication Dose Route Frequency Last Admin acetaminophen (TYLENOL) tablet 650 mg 650 mg oral Q6H PRN buprenorphine-naloxone (SUBOXONE) 8-2 mg per sublingual tablet 1 tablet 1 tablet sublingual Q6H PRN cloNIDine (CATAPRES) tablet 0.1 mg 0.1 mg oral QID PRN Or cloNIDine (CATAPRES) tablet 0.2 mg 0.2 mg oral QID PRN [START ON 09/08/2023] cloNIDine (CATAPRES) tablet 0.1 mg 0.1 mg oral BID PRN Or [START ON 09/08/2023] cloNIDine (CATAPRES) tablet 0.1 mg 0.1 mg oral QID PRN [START ON 09/10/2023] cloNIDine (CATAPRES) tablet 0.1 mg 0.1 mg oral Daily PRN Or [START ON 09/10/2023] cloNIDine (CATAPRES) tablet 0.1 mg 0.1 mg oral BID PRN docusate sodium (COLACE) capsule 100 mg 100 mg oral BID PRN hydrOXYzine (ATARAX) tablet 50 mg 50 mg oral TID PRN 50 mg at 09/05/23 0821 loperamide (IMODIUM) capsule 2 mg 2 mg oral Q4H PRN loperamide (IMODIUM) capsule 4 mg 4 mg oral Once PRN LORazepam (ATIVAN) tablet 1 mg 1 mg oral Q6H PRN 1 mg at 09/06/23 0816 methocarbamoL (ROBAXIN) tablet 1,500 mg 1,500 mg oral TID PRN ondansetron (ZOFRAN) injection 4 mg 4 mg intravenous Q6H PRN 4 mg at 09/04/23 0134 ondansetron ODT (ZOFRAN-ODT) disintegrating tablet 4 mg 4 mg oral TID PRN Or ondansetron (ZOFRAN) injection 4 mg 4 mg intravenous TID PRN 4 mg at 09/06/23 0816 traZODone (DESYREL) tablet 50 mg 50 mg oral Nightly PRN [] I have utilized all available immediate resources to obtain, update, or review the patient's current medications (including all prescriptions, gbby-hzx-edfsklc products, herbals, cannabis/cannabidiol products, and vitamin/mineral/dietary (nutritional) supplements). Lab/Radiology/Diagnostic Review: Recent Labs Lab Units 09/04/23 1203 WBC K/cumm 7.0 HEMOGLOBIN g/dL 10.6* HEMATOCRIT % 32.8* MCV fL 83.2 PLATELETS K/cumm 188 Recent Labs Lab Units 09/04/23 1203 SODIUM mmol/L 136 POTASSIUM PLASMA mmol/L 3.7 CHLORIDE mmol/L 101 CO2 mmol/L 25 ANIONGAP mmol/L 10 GLUCOSE mg/dL 107 BUN SERUM mg/dL 15 CREATININE mg/dL 1.00 CALCIUM mg/dL 8.8 ALBUMIN g/dL 3.5 ALK PHOS Units/L 79 ALT Units/L 20 AST Units/L 17 BILIRUBIN TOTAL mg/dL 0.6 Recent Labs Lab Units 09/04/23 1203 ALK PHOS Units/L 79 BILIRUBIN TOTAL mg/dL 0.6 TOTAL PROTEIN g/dL 6.8 No results found for: BNP No results found for: TROPONINT Recent Labs Lab Units 09/05/23 0633 COLOR U Mayra CLARITY U Clear SPEC GRAV U 1.028 PH, URINE 5.0 PROTEIN UR QL Negative GLUCOSE URQL Negative KETONES UR Negative BLOOD UR Negative NITRITE UR Negative LEUKOCYTE ESTERASE UR 1+* Estimated Creatinine Clearance: 65.9 mL/min (by Cockcroft-Gault based on SCr of 1 mg/dL). Patient Active Problem List Diagnosis Date Noted Fentanyl use disorder, moderate, dependence ([facility]) ([facility]) 03/04/2020 Palpitations 09/03/2023 Cellulitis of left upper extremity 09/03/2023 Anxiety 08/19/2022 Essential hypertension 08/19/2022 Lipid screening 08/19/2022 Electrolyte imbalance 08/19/2022 Polymorphic ventricular tachycardia (HCC) 08/19/2022 T wave inversion in EKG 08/04/2022 Opioid abuse (HCC) HFrEF (heart failure with reduced ejection fraction) ([facility]) ([facility]) Ventricular tachycardia (HCC) 07/01/2022 All lab results stated above were reviewed by me. [] I confirmed that the patient's Advance Care Plan is present, code status is documented, or surrogate decision maker is listed in the patient's medical record. Assessment/Plan: Bilateral upper extremity wounds with cellulitis: Secondary to IV drug use. Wound culture yielded MRSA. Continue IV vancomycin. Id and Wound Care following. Chronic IV fentanyl use: Behavioral health consulted. Mild opioid withdrawal: Continue Suboxone p.r.n. Anxiety: P.o. Ativan p.r.n.. Patient states she would welcome a visit from the hospital latin teacher. Spiritual care consult placed. DVT prophylaxis: Lovenox Code status: Full code Mario Moss MD [facility] Pager #: [phone] This note is dictated and transcribed by [employer] Direct direct software. Franchise Sales Manager variances may occur. Despite proof reading, typographical errors may occur. * Sean Jimenez [facility] - 09/05/2023 1:01 PM CDT Pharmacokinetic Consult - Vancomycin Dosing Gely Allen is a 42 y.o. female who has been consulted for vancomycin dosing for skin/soft tissue infection. Relevant clinical data and objective history reviewed: Creatinine Date Value Ref Range Status 09/04/2023 1.00 0.60 - 1.10 mg/dL Final 08/04/2022 0.93 0.60 - 1.10 mg/dL Final 07/19/2022 1.08 0.60 - 1.10 mg/dL Final BUN Date Value Ref Range Status 09/04/2023 15 6 - 25 mg/dL Final 08/04/2022 15 8 - 25 mg/dL Final 07/19/2022 16 8 - 25 mg/dL Final Estimated Creatinine Clearance: 65.9 mL/min (by Cockcroft-Gault based on SCr of 1 mg/dL). I/O last 3 completed shifts: In: 340 [P.O.:340] Out: - Lab Results Component Value Date/Time WBC 7.0 09/04/2023 12:03 PM HGB 10.6 (L) 09/04/2023 12:03 PM HCT 32.8 (L) 09/04/2023 12:03 PM MCV 83.2 09/04/2023 12:03 PM LABPLAT 188 09/04/2023 12:03 PM Temp Readings from Last 3 Encounters: 09/05/23 36.8 ??C (98.2 ??F) (Oral) 08/06/22 37 ??C (98.6 ??F) (Oral) 07/19/22 36.8 ??C (98.3 ??F) (Tympanic) Patient Weight 09/03/23 74.4 kg (164 lb) Lab Results Component Value Date DIRECTEXAM 09/04/2023 Stain: No polymorphonuclear leukocytes seen. Few Gram Positive Cocci DIRECTEXAM 09/03/2023 Stain: Rare polymorphonuclear leukocytes seen. Abundant Gram Positive Cocci DIRECTEXAM 07/02/2022 Molecular Analysis: Rapid molecular analysis has NOT detected bacterial targets (for a list of targets evaluated, referto the interpretive data for this specimen). Correlation of molecular analysis with culture resultsis recommended. DIRECTEXAM 07/02/2022 Stain: Abundant polymorphonuclear leukocytes seen. Few squamous epithelial cells seen. Rare mixed bacterial renay seen on Gram stain. MICROBIOLOGY Preliminary Report: No growth to date. 09/04/2023 MICROBIOLOGY Preliminary Report: Culture results pending. (.) 09/04/2023 MICROBIOLOGY Preliminary Report: Culture results pending. (.) 09/03/2023 ORGANISM GROWTH INDICATES UPPER RESPIRATORY RENAY. 07/02/2022 Assessment/Plan The patient will be started on vancomycin utilizing scheduled dosing based on actual body weight. Will initiate dosing at 1750 mg IV once, followed by 1000 mg every 12 hours. Pharmacy will also follow closely for signs and symptoms of toxicity. Serum creatinine will be ordered per policy. Vancomycin trough level has been ordered to be drawn on 09/06/23 at 2030. Goal trough is 10-20 mcg/mL. Pharmacy will continue to follow the patient???s culture results and clinical progress daily. Day 1 of therapy. Sean Jimenez, PharmD, BCPS * Fitz Zepeda SLP - 09/05/2023 10:22 AM CDT CLINICAL SWALLOW EVALUATION GENERAL INFORMATION Reason for Swallow Evaluation Referral: Difficulty Swallowing Ordering Physician: Vira Warren NP Date of Order: 09/04/23 Date of Evaluation: 09/05/23 Diet Prior to this Study: Regular diet/thin liquids Time In: 10:12 Time Out: 10:35 ORAL MOTOR Oral Motor: WNL Dentition: Adequate OBJECTIVE Respiratory Status: Room air History of Intubation: No Tracheostomy: No Vocal Quality: WNL Vocal Intensity: WNL Secretion Management: WNL Behavior/Cognition: Patient awake and cooperative; able to follow commands accurately. Speech is clear and intelligible. Oriented x4 Pain: Pre Therapy Pain Level: 0/10 Pain Location: N/A Pain Intervention: N/A Post Therapy Pain Level/Response to Intervention: 0/10 Patient Positioning: Patient sitting upright 90 degrees CLINICAL SWALLOW ASSESSMENT CONSISTENCIES ASSESSED: Thin Liquids Presentation: Straw, Self fed Oral: WNL Pharyngeal: WNL Puree Presentation: Spoon, Self fed Oral: WNL Pharyngeal: WNL Solid Presentation: Self fed Oral: WNL Pharyngeal: WNL - Patient reports feeling solid foods slowly going down and eventually causing a pain in her stomach; feeling resolves once patient has vomited. Patient reports this has been occurring for 3 years. RECOMMENDATIONS Risk for Aspiration: None Solid Recommendations: Regular Liquid Recommendations: Thin Recommended Form of Medications: Whole with liquid Assistance with Feeding/Swallowing: Independent with all meals Compensatory Strategies/Modifications: small bites, small sips, alternate bites/sips Postural Changes: Sit upright 90 degrees for all meals, Remain upright 30 minutes after meals PLATING DEPARTMENT HELPER Frequency: One time visit Education:Discussed diet recommendations and swallow guidelines with patient, RN(Kathleen) and Dr. Moss - Recommend GI consult to further assess esophageal function. * Mario Moss MD - 09/05/2023 9:44 AM CDT Images from the original note were not included. General Medicine Daily Progress Patient is a 42 y.o. female who was transferred from [facility] for bilateral upper extremity wounds and ID evaluation. Arrival Vitals Temp 09/03/23 2225 36.9 ??C (98.4 ??F) Pulse 06/08/24 222 116 Resp 09/03/232224 19 BP 09/03/232224 144/91 SpO2 09/03/232224 100 % Temp src 09/03/232224 Oral Heart Rate Source 09/04/23 0000 Monitor Patient Position 09/03/232224 Sitting BP Location 09/03/232224 Left arm FiO2 (%) -- Length of stay: 2 days Interval History: IV Access restored this morning Subjective: No complaints. Objective: Vitals: 24hr Min/Max: Temp Min: 36.7 ??C (98 ??F) Max: 37.1 ??C (98.8 ??F) Pulse Min: 72 Max: 100 BP Min: 98/57 Max: 138/69 Resp Min: 18 Max: 19 SpO2 Min: 97 % Max: 100 % Most Recent : Vitals: 09/05/23 0036 09/05/23 0400 09/05/23 0442 09/05/23 0735 BP: 98/57 111/68 125/77 BP Location: Left arm Left arm Left arm Patient Position: Lying Lying Lying;HOB 30 degrees Pulse: 81 74 76 82 Resp: 19 19 18 Temp: 36.9 ??C (98.4 ??F) 36.8 ??C (98.2 ??F) 36.8 ??C (98.2 ??F) TempSrc: Oral Oral Oral SpO2: 98% 100% 97% Weight: Height: I/O last 2 completed shifts: In: 240 [P.O.:240] Out: - I/O this shift: In: 120 [P.O.:120] Out: - Physical Exam: Gen: Intermittently tearful Neuro: Alert, oriented in time place and person. Pulmonary: Not dyspneic. No crackles or rhonchi. Cardiovascular: HS 1, 2 . regular rhythm. GI: abdomen not distended, soft, non-tender. Musculoskeletal: No joint swelling, tenderness or warmth. Skin: Upper arms wrapped with wound dressing Current Meds: chlordiazePOXIDE, 25 mg, oral, QID enoxaparin, 40 mg, subcutaneous, Daily-2100 gabapentin, 300 mg, oral, BID sodium chloride 0.9%, 0.5-20 mL, intra-catheter, Q8H KENTRELL vancomycin, 1,250 mg, intravenous, Q24H PRN Medications Medication Dose Route Frequency Last Admin acetaminophen (TYLENOL) tablet 650 mg 650 mg oral Q6H PRN cloNIDine (CATAPRES) tablet 0.1 mg 0.1 mg oral QID PRN Or cloNIDine (CATAPRES) tablet 0.2 mg 0.2 mg oral QID PRN [START ON 09/08/2023] cloNIDine (CATAPRES) tablet 0.1 mg 0.1 mg oral BID PRN Or [START ON 09/08/2023] cloNIDine (CATAPRES) tablet 0.1 mg 0.1 mg oral QID PRN [START ON 09/10/2023] cloNIDine (CATAPRES) tablet 0.1 mg 0.1 mg oral Daily PRN Or [START ON 09/10/2023] cloNIDine (CATAPRES) tablet 0.1 mg 0.1 mg oral BID PRN docusate sodium (COLACE) capsule 100 mg 100 mg oral BID PRN hydrOXYzine (ATARAX) tablet 50 mg 50 mg oral TID PRN 50 mg at 09/05/23 0821 loperamide (IMODIUM) capsule 2 mg 2 mg oral Q4H PRN loperamide (IMODIUM) capsule 4 mg 4 mg oral Once PRN LORazepam (ATIVAN) tablet 1 mg 1 mg oral Q6H PRN 1 mg at 09/05/23 0821 methocarbamoL (ROBAXIN) tablet 1,500 mg 1,500 mg oral TID PRN ondansetron (ZOFRAN) injection 4 mg 4 mg intravenous Q6H PRN 4 mg at 09/04/23 0134 ondansetron ODT (ZOFRAN-ODT) disintegrating tablet 4 mg 4 mg oral TID PRN Or ondansetron (ZOFRAN) injection 4 mg 4 mg intravenous TID PRN traZODone (DESYREL) tablet 50 mg 50 mg oral Nightly PRN [] I have utilized all available immediate resources to obtain, update, or review the patient's current medications (including all prescriptions, bezi-xzi-xxgokno products, herbals, cannabis/cannabidiol products, and vitamin/mineral/dietary (nutritional) supplements). Lab/Radiology/Diagnostic Review: Recent Labs Lab Units 09/04/23 1203 WBC K/cumm 7.0 HEMOGLOBIN g/dL 10.6* HEMATOCRIT % 32.8* MCV fL 83.2 PLATELETS K/cumm 188 Recent Labs Lab Units 09/04/23 1203 SODIUM mmol/L 136 POTASSIUM PLASMA mmol/L 3.7 CHLORIDE mmol/L 101 CO2 mmol/L 25 ANIONGAP mmol/L 10 GLUCOSE mg/dL 107 BUN SERUM mg/dL 15 CREATININE mg/dL 1.00 CALCIUM mg/dL 8.8 ALBUMIN g/dL 3.5 ALK PHOS Units/L 79 ALT Units/L 20 AST Units/L 17 BILIRUBIN TOTAL mg/dL 0.6 Recent Labs Lab Units 09/04/23 1203 ALK PHOS Units/L 79 BILIRUBIN TOTAL mg/dL 0.6 TOTAL PROTEIN g/dL 6.8 No results found for: BNP No results found for: TROPONINT Recent Labs Lab Units 09/05/23 0633 COLOR U Mayra CLARITY U Clear SPEC GRAV U 1.028 PH, URINE 5.0 PROTEIN UR QL Negative GLUCOSE URQL Negative KETONES UR Negative BLOOD UR Negative NITRITE UR Negative LEUKOCYTE ESTERASE UR 1+* Estimated Creatinine Clearance: 65.9 mL/min (by Cockcroft-Gault based on SCr of 1 mg/dL). Patient Active Problem List Diagnosis Date Noted Fentanyl use disorder, moderate, dependence ([facility] ([facility]) 03/04/2020 Palpitations 09/03/2023 Cellulitis of left upper extremity 09/03/2023 Anxiety 08/19/2022 Essential hypertension 08/19/2022 Lipid screening 08/19/2022 Electrolyte imbalance 08/19/2022 Polymorphic ventricular tachycardia (HCC) 08/19/2022 T wave inversion in EKG 08/04/2022 Opioid abuse ([facility]) HFrEF (heart failure with reduced ejection fraction) ([facility]) ([facility]) Ventricular tachycardia ([facility]) 07/01/2022 All lab results stated above were reviewed by me. [] I confirmed that the patient's Advance Care Plan is present, code status is documented, or surrogate decision maker is listed in the patient's medical record. Assessment/Plan: Bilateral upper extremity wounds with cellulitis: Secondary to IV drug use. Continue IV vancomycin.Follow wound cultures. Id and Wound Care following. Chronic IV fentanyl use: No significant withdrawal symptoms at this time. Behavioral health consulted. Start Suboxone p.r.n. Anxiety: P.o. Ativan p.r.n.. Patient states she would welcome a visit from the hospital latin teacher. Spiritual care consult placed. DVT prophylaxis: Lovenox Code status: Full code Mario Moss MD [facility] Pager #: [phone] This note is dictated and transcribed by [employer] Direct direct software. Franchise Sales Manager variances may occur. Despite proof reading, typographical errors may occur. * Alejandro Carrillo MD - 09/05/2023 6:06 AM CDT Images from the original note were not included. Infectious Disease Gely Allen Admit Date: 09/03/2023 LOS: 2 Days Requesting provider: Flavia Lange MD Reason for consult: cellullitis/abscess Interval Course Blood cultures remain negative New Symptoms Afebrile, denies any new complaints ATBX Vancomycin Data Vitals: 09/05/23 0000 09/05/23 0036 09/05/23 0400 09/05/23 0442 BP: 98/57 111/68 BP Location: Left arm Left arm Patient Position: Lying Lying Pulse: 72 81 74 76 Resp: 19 19 Temp: 36.9 ??C (98.4 ??F) 36.8 ??C (98.2 ??F) TempSrc: Oral Oral SpO2: 98% 100% Weight: Height: Temp (24hrs), Av.8 ??C (98.3 ??F), Min:36.7 ??C (98 ??F), Max:37.1 ??C (98.8 ??F) Recent Labs Lab Units 09/04/23 1203 WBC K/cumm 7.0 HEMOGLOBIN g/dL 10.6* HEMATOCRIT % 32.8* PLATELETS K/cumm 188 Recent Labs Lab Units 09/04/23 1203 BUN SERUM mg/dL 15 CREATININE mg/dL 1.00 Scheduled Meds:chlordiazePOXIDE, 25 mg, oral, QID enoxaparin, 40 mg, subcutaneous, Daily-2100 gabapentin, 300 mg, oral, BID sodium chloride 0.9%, 0.5-20 mL, intra-catheter, Q8H KENTRELL vancomycin, 1,250 mg, intravenous, Q24H Continuous Infusions: PRN Meds:. acetaminophen cloNIDine OR cloNIDine [START ON 09/08/2023] cloNIDine OR [START ON 09/08/2023] cloNIDine [START ON 09/10/2023] cloNIDine OR [START ON 09/10/2023] cloNIDine docusate sodium hydrOXYzine loperamide loperamide LORazepam methocarbamoL ondansetron ondansetron ODT OR ondansetron traZODone Exam General appearance: alert, cooperative, no distress HEENT: mmm, no thrush, no icterus Neck: No masses, trachea midline, supple. Heart: regular rhythm, normal S1 and S2, without murmurs, rubs or gallops Lungs: breath sounds normal and symmetric; no rales or wheezes Abdomen: soft without mass, non-tender, with normal bowel sounds Extremities: no clubbing, cyanosis or edema Joint: no joint deformities or effusions Skin: decretoice lesiosn with purulence on b/l upper arms. Neuro: A+Ox3, Moves all 4 extremities, CN 2-12 grossly intact Lab: 69 bld cx no growth to date 09/03 wound cx Staph aureus susceptibility pending Assessment 42 year odl female with depression, HTN, opiate use disorder with IV fentanyl B/l arm cellulitis and necrotic lesions ?Xylazine related Fever r/o BSI Plan Continue IV vanc Follow wound culture Staph aureus of Recommend surgery consultation Follow bld cxs Wound care to arms Hepatitis and HIV negative * Gayathri Campos M.A. - 09/04/2023 10:19 AM CDT At 1029 [facility] entered a inpatient urgent video consult, which has a median time of EIGHT hours to becompleted into the [facility] Portal. Reason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 Vira Warren NP doxycycline monohydrate (MONODOX) capsule 100 mg, 100 mg, oral, BID - special, Flavia Lange MD, 100 mg at 09/04/23 1147 enoxaparin (LOVENOX) syringe 40 mg, 40 mg, subcutaneous, Daily-2100, Vira Warren NP, 40 mg at 09/03/23 2356 hydrOXYzine (ATARAX) tablet 50 mg, 50 mg, oral, TID PRN, Vira Warren NP loperamide (IMODIUM) capsule 2 mg, 2 mg, oral, Q4H PRN, Vira Warren NP loperamide (IMODIUM) capsule 4 mg, 4 mg, oral, Once PRN, Vira Warren NP LORazepam (ATIVAN) tablet 1 mg, 1 mg, oral, Q6H PRN, Flavia Lange MD methocarbamoL (ROBAXIN) tablet 1,500 mg, 1,500 mg, oral, TID PRN, Vira Warren NP metroNIDAZOLE (FLAGYL) tablet 500 mg, 500 mg, oral, TID, Flavia Lange MD, 500 mg at 09/04/23 1140 ondansetron (ZOFRAN) injection 4 mg, 4 mg, intravenous, Q6H PRN, Vira Warren NP, 4 mg at 09/04/23 0134 ondansetron ODT (ZOFRAN-ODT) disintegrating tablet 4 mg, 4 mg, oral, TID PRN OR ondansetron (ZOFRAN) injection 4 mg, 4 mg, intravenous, TID PRN, Vira Warren NP sodium chloride 0.9% flush 0.5-20 mL, 0.5-20 mL, intra-catheter, Q8H KENTRELL, Vira Warren NP, 10mL at 09/03/23 235 traZODone (DESYREL) tablet 50 mg, 50 mg, oral, Nightly PRN, Vira Warren NP vancomycin 1250 mg/250 mL in sodium chloride 0.9% (premix) 1,250 mg, 1,250 mg, intravenous, Q24H, Vira Warren NP ROS: 10 pt ROS reviewed and negative except per HPI Objective: Vitals: 09/04/23 0350 09/04/23 0800 09/04/23 1200 09/04/23 1319 BP: 109/66 157/90 116/75 BP Location: Left arm Left leg Left arm Patient Position: HOB 30 degrees Sitting Pulse: 101 109 87 100 Resp: 17 19 Temp: 37 ??C (98.6 ??F) 36.7 ??C (98 ??F) 37 ??C (98.6 ??F) TempSrc: Oral Oral Oral SpO2: 95% 96% 98% Weight: Height: Temp (24hrs), Av.9 ??C (98.5 ??F), Min:36.7 ??C (98 ??F), Max:37.1 ??C (98.7 ??F) Intake/Output Summary (Last 24 hours) at 09/04/2023 1418 Last data filed at 09/04/2023 1000 Gross per 24 hour Intake 340 ml Output -- Net 340 ml Exam General appearance: alert, cooperative, no distress HEENT: mmm, no thrush, no icterus Neck: No masses, trachea midline, supple. Heart: regular rhythm, normal S1 and S2, without murmurs, rubs or gallops Lungs: breath sounds normal and symmetric; no rales or wheezes Abdomen: soft without mass, non-tender, with normal bowel sounds Extremities: no clubbing, cyanosis or edema Joint: no joint deformities or effusions Skin: decretoice lesiosn with purulence on b/l upper arms. Neuro: A+Ox3, Moves all 4 extremities, CN 2-12 grossly intact Lab: Recent Labs Lab Units 09/04/23 1203 WBC K/cumm 7.0 HEMOGLOBIN g/dL 10.6* HEMATOCRIT % 32.8* PLATELETS K/cumm 188 Recent Labs Lab Units 09/04/23 1203 SODIUM mmol/L 136 POTASSIUM PLASMA mmol/L 3.7 CHLORIDE mmol/L 101 CO2 mmol/L 25 CREATININE mg/dL 1.00 GLUCOSE mg/dL 107 CALCIUM mg/dL 8.8 ALBUMIN g/dL 3.5 ALK PHOS Units/L 79 ALT Units/L 20 AST Units/L 17 69 bld cx pending 09/03 wound cx GPC Assessment 42 year odl female with depression, HTN, opiate use disorder with IV fentanyl B/l arm cellulitis and necrotic lesions ?Xylazine related Fever r/o BSI Plan Continue IV vanc DC doxy and flagyl Follow wound culture Recommend surgery consultation Follow bld cxs Wound care to arms Send Hep C/B and HIV testing Thank you for this consult, will follow with you, Janet Borges MD [place] [facility] [phone] * Roxann Avendano Carolina, RD - 09/04/2023 10:31 AM CDTAssociated Order(s): IP CONSULT TO NUTRITION SERVICES NUTRITION ASSESSMENT Nutrition Status: Patient at risk for malnutrition, but does not meet ASPEN criteria for malnutrition. REASON FOR ASSESSMENT: Consult/Referral - At Risk MST Score Encounter Date: 09/04/23 4:41 PM Admission Date: 09/03/2023 LOS: 1 days HPI: Patient is a 42 y.o. female with a medical history of anxiety, bipolar disorder, depression, hypertension, opiate use disorder who presented to [facility] 09/03/2023 with complaints of palpitations, dyspnea and fever. Patient reported palpitations mainly on the right side. On admission patient was noted to have bilateral upper arm wounds and cellulitis secondary to IV drug use. She reported being seen at urgent care about 2 weeks ago and completed a 5 day course of Keflex and mupirocin. The drainage and pain from the multiple wounds did not improve. Patient presented with a fever of 102, heart rate 120 and blood pressure 162/108. Labs done at outside hospital showed WBC 6.2, H&H 11.0/33.3, PLT 184, creatinine 1.20, BUN 90, potassium 3.4, sodium 136 and bicarb 24, CRP 8.6. Placed on tele monitoring and closely monitoring for withdrawals from IV drug use. 09/03- Ensure High Protein vanilla is ordered tid but Pt requesting chocolate, D/C ONS and add EnsurePlus High Protein chocolate bid. Sending Andrés fruit punch flavor bid. Objective Past Medical History: Diagnosis Date Hypertension Ventricular dysfunction Past Surgical History: Procedure Laterality Date HYSTERECTOMY Social History Tobacco Use Smoking status: Never Smokeless tobacco: Never Substance and Sexual Activity Drug use: Not Currently Types: Amphetamines, Benzodiazepines, Fentanyl, Opioid Sexual activity: Defer Alcohol Use: Not At Risk (07/01/2022) AUDIT-C Frequency of Alcohol Consumption: Never Average Number of Drinks: Not on file Frequency of Binge Drinking: Never MEDICATION/LAB REVIEW: Scheduled Meds: chlordiazePOXIDE, 25 mg, oral, QID enoxaparin, 40 mg, subcutaneous, Daily-2100 sodium chloride 0.9%, 0.5-20 mL, intra-catheter, Q8H KENTRELL vancomycin, 1,250 mg, intravenous, Q24H Continuous Infusions: PRN Meds: acetaminophen cloNIDine OR cloNIDine [START ON 09/08/2023] cloNIDine OR [START ON 09/08/2023] cloNIDine [START ON 09/10/2023] cloNIDine OR [START ON 09/10/2023] cloNIDine docusate sodium hydrOXYzine loperamide loperamide LORazepam methocarbamoL ondansetron ondansetron ODT OR ondansetron traZODone Recent Labs Lab Units 09/04/23 1203 SODIUM mmol/L 136 POTASSIUM PLASMA mmol/L 3.7 CHLORIDE mmol/L 101 CO2 mmol/L 25 BUN SERUM mg/dL 15 CREATININE mg/dL 1.00 [id number] mL/min/1.73 m2 72 CALCIUM mg/dL 8.8 ALBUMIN g/dL 3.5 Recent Labs Lab Units 09/04/23 1203 GLUCOSE mg/dL 107 ALT Date Value Ref Range Status 09/04/2023 20 7 - 45 Units/L Final AST Date Value Ref Range Status 09/04/2023 17 10 - 45 Units/L Final Alk phos Date Value Ref Range Status 09/04/2023 79 40 - 130 Units/L Final No results found for: HGBA1C , HDL , LDLCALC , CHOL , TRIG NURSING ASSESSMENT: Arian Scale Score: 22 Skin Integrity: Weeping, Other (Comment) (wounds on bilateral arms) Type of Wound (LDA): Wound Vital Signs BP: 116/75 Temp: 37 ??C (98.6 ??F) Pulse: 83 Resp: 19 SpO2: 98 % Intake/Output Summary (Last 24 hours) at 09/04/2023 1641 Last data filed at 09/04/2023 1000 Gross per 24 hour Intake 340 ml Output -- Net 340 ml Adult Malnutrition Scoring Tool (MST) What diet do you follow at home?: adult regular Have You Recently Lost Weight Without Trying?: Yes (Comment) How Much Weight Have You Lost?: Unsure Have you been eating poorly because of a decreased appetite?: No Malnutrition Screening Tool (MST) Score: 2 Anthropometrics Weight: 74.4 kg (164 lb) Weight Change: 0.45 kg (1.00 lbs) IBW/kg (Calculated) : 56.7 kg Height: 165.1 cm (5' 5 ) Weight in (lb) to have BMI = 25: 149.9 BMI (Calculated): 27.3 BMI Classification: BMI 25.0 - 29.9 Overweight Wt Readings from Last 10 Encounters: 09/03/23 74.4 kg (164 lb) 08/19/22 73.9 kg (163 lb) 08/05/22 74.1 kg (163 lb 6.4 oz) 07/19/22 79.4 kg (175 lb) 07/03/22 78.9 kg (173 lb 15.1 oz) 02/01/21 77.1 kg (170 lb) 01/31/21 77.1 kg (170 lb) 03/04/20 74.8 kg (165 lb) 02/28/20 72.6 kg (160 lb) ESTIMATED NEEDS: Weight Used for Equation Calculations (RD Determined): 74.4 kg (164 lb) Total Kcal/kg Estimated Needs : 1859.75 Kcal/k. Type of Weight Used for Estimated Kcals: Current Total Protein Estimated Needs (gm): 89.27 Protein Needs Based on g/k.2 Type of Weight Used for Estimated Protein : Current Total Fluid Estimated Needs: 1859.75 Fluid Needs Based on : 1 ml/kcal Type of Weight Used for Estimated Fluid Needs: Current Dietary Orders (From admission, onward) Start Ordered 09/04/23 0700 Oral Nutrition Supplements Quantity (# of cans): 1 can; (CH) Select Supplement: Ensure High Protein - Vanilla All Meals Question Answer Comment Quantity (# of cans): 1 can (CH) Select Supplement: Ensure High Protein - Vanilla 09/04/23 0119 09/04/23 0016 Adult Diet Regular Diet effective now Question: (CH) Diet type Answer: Regular 09/04/23 0015 Allergies: Reviewed. IMPRESSION: Consult Received for MST- unsure of Wt loss -Recent PO intakes not recorded yet. Pt reports only eating toast, chicken, juice, and white sodas for the past 3 years as she reported only being able to tolerate these foods without chest pain/vomiting. She reports no vomiting for the past year as she has limited herself to these foods. She is eating other foods currently, but if she starts having issues with tolerance (unrelated to withdrawal), she may benefit from a GI consult (messaged Dr. Lange with information). RD encouraged a balance diet with a variety of the food groups for optimal nutrition and to promote wound healing. Ensure High Protein vanilla is ordered tid but Pt requesting chocolate, D/C ONS and add Ensure Plus High P rotein chocolate bid -GI: nausea. -Skin: Pt has increased nutrient needs from deteriorating open right arm wound and deteriorating left arm wound (Cellulitis/abscess bilateral upper arms - secondary to IV drug use per chart). Sending Andrés fruit punch flavor bid -Pt reports ubw 174 lbs, down to 160 lbs since April. Current Wt 164 lbs was taken via scale, this would be 10 lbs Wt loss or 5.9% body Wt loss over >3 months (not clinically significant). However, Wt history reveals 163 lbs via standing scale on 08/05/22, this would be 1 lbs Wt gain overall. Will monitor for Wt changes -Pt denies having any cultural/roman catholic beliefs related diet restrictions or social needs at thistime -Hunger Screen was not completed Weights/Vitals Weight (LB) Weight (KG) Weight Method 07/01/2022 168 lb 3.4 oz 76.3 kg Bed scale 07/03/2022 173 lb 15.1 oz 78.9 kg Bed scale 07/19/2022 175 lb 79.379 kg Stated 08/04/2022 160 lb 72.576 kg 08/05/2022 163 lb 6.4 oz 74.118 kg Standing scale 08/19/2022 163 lb 73.936 kg 09/03/2023 164 lb 74.39 kg Standing scale ASPEN MALNUTRITION ASSESSMENT: Date of completion: 09/03- at risk, does not currently meet NUTRITION FOCUSED PHYSICAL EXAM: Completed. Subcutaneous Fat Loss Orbital Region - Surrounding the Eye: Slightly dark circles Cheek Region - Buccal Fat: Full, round filled-out cheeks Muscle Loss Jehovah'S Witness Region - Temporalis Muscle: Can see/feel well-defined muscle Clavicle Bone Region - Pectoralis Major, Deltoid, Trapezius Muscles: Assessment of region not appropriate NUTRITION DIAGNOSIS: Nutrition Diagnosis 1: Inadequate oral intake Related to: Food choices Evidenced by: Patient interview, Weight loss Nutrition Diagnosis 2: Increased nutrient needs (protein) Related to: Wounds Evidenced by: Physicalfinding INTERVENTION(S): Summary: Communication, Medical food supplement, [place] diet preferences within the limits of nutrition care order, Discontinue supplement GOAL(S): Oral intake to meet 75% estimated nutritional needs by next assessment, Tolerance of medical food supplement by next assessment, Promote wound healing, Prevent further unintended weight loss during admission MONITORING/EVALUATION: Appetite, Discharge plans, Labs, Plan of care, PO intake, Stool patterns, Supplement tolerance, Wound healing, Weight changes, GI output Diet Instructions Eat a variety of healthy foods from all the food groups. Eat fruits, vegetables, whole grains, and fat-free or low-fat dairy foods. Whole grains include whole- wheat breads, cereals, pasta, and brown rice. Choose lean meats, poultry (chicken and turkey), fish, beans, eggs, and nuts. A healthy meal plan is low in unhealthy fats, salt, and added sugar. Healthy fats include olive oil and canola oil. Recommend to avoid sugary drinks like lemonade, regular soda, gatorade, and sweet tea. Additional resources are available online from the Academy of Nutrition and Dietetics at www.eatright.org Drink a high protein supplement such as Ensure Enlive/Complete or Boost Plus 1-2 times daily for poor appetite/meal intakes Recommend to continue drinking Andrés two times per day for 30 days or until your wound is healed. Andrés can be purchased at a reduced cost here at [facility] in the [facility] in [address], or you may purchase it at [employer] or on [employer] Instructions: mix the packet of Andrés with 8-10 fluid ounces of water, diet clear soda, or whichever beverage you prefer. Once mixed, it must be consumed within 24 hours. Continue to include high sources of protein (chicken, turkey, peanut butter, nuts, beans, fish, eggs, cheese, Belgian yogurt, etc.) in your diet to press worker helper in wound healing. Additional information is available online at www.andrés.com Please call the dietitian's office at [phone] if you have questions about nutrition. If you would like to see our outpatient dietitian please have your physician fax a referral to [phone], and you may call [phone] to make an appointment. For any other questions you can call and ask to be connected to the floor that you were discharged from. Nutrition Follow-Up : 09/08/[address], LD * Gaytahri Campos M.A. - 09/04/2023 8:51 AM CDTAssociated Order(s): CONSULT TO BEHAVIORAL HEALTH [facility] ([facility]) [facility] Initial Assessment Date: 09/04/23 Assessment Start time: 856 Assessment End time: 935 Patient Name: Gely Allen Preferred Name: Gely Preferred Pronouns: she/her/hers Legal Status: Patient is own legal guardian. Date of : 1980 Information Source: Patient and Hospital staff / EMR Chief Complaint: No chief complaint on file. HP consultation was requested by KENAN Warren for IVDU fentanyl . Presenting Problem: I wanna be done... I'm tired of the life style... I was using 60 pills a day and I got down to 5 and threw it away. History of Present Illness/Summary Patient is currently on the inpatient unit at [facility]. Gely Allen is a 42 y.o. White female who is Alert and oriented x4. Patient has a past psychiatric history of anxiety and bipolar. Patient denies any current prescribed psychotropic medications. Patient presents to the hospital reporting palpitations. On admission patient was noted to have bilateral upper arm wounds and cellulitis secondary to IV drug use. During Substance Use consult patient stated that she's exhausted with living her current lifestyle and wants help in quitting fentanyl. Patient states that in the past she had been clean for a year but relapsed in January 2023. Patient states not wanting to go to because it just made me think about it more... I think I it was better without it... people would tell stories then talk about the phones afterwards... it was a huge trigger... Patient also reported that her anxiety is out of control... I barely leave my house Patient denies suicidal thoughts/plan/intent. However, patient reports having weekly thoughts of wanting to saying, I think people would be better off. Patient does report 2 previous suicide attempts by overdose, most recently in 2007.Patient is interest in starting psychotropic medications for anxiety and/or bipolar disorder. Patient is also interested in [facility] for her opioid/opiate use. Patient states that no one knows I use, and so did not give consent for collateral. Patient denies homicidal thoughts. Patient denies any paranoia, hallucinations or delusions. Patient admits to drinking alcohol. Last use: like months ago . Patient admits to using fentanyl Referral made to [facility] ([place] area only), , to facilitate transfer to a treatment program at discharge. [facility] will contact the patient directly today. [facility] will communicate directly with the patient for the duration of her stay. [facility] will provide follow up instructions directly tothe patient. [facility] will contact the assigned Street Vendor/Mold Filler for discharge date. There are no affidavits related to this encounter to review for patient at [facility]. Recommendations: /DO Lange and [facility] discussed patient disposition. Based on the clinical presentation of patient wanting medication recommendations for anxiety while in the hospital, telapsychiatry will be contacted. Patient does not meet criteria for inpatient psychiatric admission. Patient acknowledges herunderstanding of the plan of care without any questions at this time. ~ [facility] discussed with Dr. Lange and a Consult to Psychiatry will be added for medication recommendations*. Plan of Care: Telepsychiatry will be involved. ~I to contact Telepsychiatry to see patient. Care Plan while remaining in hospital: Patient Strengths: Motivation/Readiness to change, Insurance, Stable housing, Supportive relationships (family, friends, peers), and Stable home environment Patient Coping Mechanisms: Take pet for walk/hike and Other: artwork Patient Triggers: Feeling overwhelmed/high stress and Feel like they are letting people down Distractions and things that may help: Allow patient to call family/friend if appropriate and does not cause issues, Be specific on time frames and follow them, and Give options when possible What staff can do proactively: For Anxiety: ~Talk calmly with patient ~Deep breathing with them: 3 seconds in, 3 seconds out ~Grounding technique 5-4-3-2-1 : 5 things you can see, 4 things you can feel, 3 things you can hear, 2 things you can smell, 1 thing you can taste ~Inform patient of anticipated testing, treatments, therapies, etc. as soon as possible ~ Administer PRN medication(s) if appropriate to assist with anxiety ~ Allow the patient to talk about distressing emotions and feelings ~ Interact with the patient in a calm and gentle manner For Alcohol/Opiate Withdrawal: ~Ensure that alcohol withdrawal or opiate withdrawal protocol orders have been ordered ~Encourage patient to report symptoms of withdrawal (ie: shaking, sweats, nausea, cramping, etc.) ~If patient is expressing any withdrawal symptoms or are evidenced, offer PRN if available ~Offer PRNs regularly, if available, especially within the first 24 hours ~Offer warm/cold compress ~Offer other comfort measures such as more/less blankets ~Talk with patient, acknowledge their cravings and offer support Psychiatric History and Symptoms Mental Health Treatment: (Inpatient/outpatient, when, where, and how many admissions in past year): Patient's most recent admission was to [place] in 2007. Patient has a past psychiatric history of anxiety and bipolar. Patient does not have any outpatient providers for psychiatric treatment. Patient is not currently receiving any outpatient group treatment. Next appointment with psychiatrist: jeffy Next appointment with therapist/counselor: jeffy Paper Products Inspector Name, Agency and Phone number: na Current suicidal ideation: Patient denies suicidal thoughts/plan/intent. Previous suicide attempt(s): Patient has 2 previous suicide attempt(s). Most recent was 2007 with method of overdose. Suicidal Ideation in the past month? Yes SAFE-T Protocol with C-SSRS (Bennett Risk and Protective Factors) - Recent Step 1: Identify Risk Factors: Bennett Suicide Severity Rating Scale (Recent Screener) Initial Screening: Reassessment (as needed): Is the patient being treated today because it is known or suspected that they prepared, started, ortried to end their life? No No Is the patient able to appropriately answer questions? Yes Yes Information obtained from: Patient Patient 1. In the past month, have you wished you were or that you could go to sleep and not wake up? Yes Yes 2. In the past month, have you actually had any thoughts of killing yourself? No No 3. In the past month, have you been thinking about how you might kill yourself? No 4. In the past month, have you had these thoughts and had some intention of acting on them? No 5. In the past month, have you started to work out or worked out the details of how to kill yourself and do you intend to carry out this plan? No 6. Have you ever done anything, started to do anything, or prepared to do anything to end your life? No Yes 6b. Was this within the past three months? No Suicide Risk Level: Low Activating Events: I just feel like the world would be better off without me. Treatment History: history of mental illness, prior psychiatric hospitalizations, and not receivingtreatment Clinical Status: hopelessness and substance use disorder Access to lethal methods (specifically about the presence or absence of a firearm in the home or ease of accessing): No Step 2: Identify Protective Factors (Protective factors may not counteract significant acute suicide risk factors): Internal: identifies the following reasons to live: my kids and future planning/forward thinking: I had my youngest moved back in... I'm looking forward to having that bustillo. External: responsibility to family/others, stable housing, and no access to firearms Step 3: Specific Questioning about Thoughts, Plans, and Suicidal Intent (see Step 1 for Ideation Severity and Behavior): C-SSRS Suicidal Ideation Intensity (with respect to the most severe ideation 1-5 identified above) Month Frequency In the past month, how many times have you had these thoughts? (3) 2-5 times in week Duration When you have the thoughts how long do they last? (3) 1-4 hours/a lot of the time Controllability Could/can you stop thinking about killing yourself or wanting to if you want to? (2) Can control thoughts with little difficulty Deterrents Are there things - anyone or anything (e.g., family, yazdanism, pain of ) - that stopped you from wanting to or acting on thoughts of suicide? (1) Deterrents definitely stopped you from attempting suicide Reasons for Ideation What sort of reasons did you have for thinking about wanting to or killing yourself? Was it to end the pain or stop the way you were feeling (in other words you couldn???t go on livingwith this pain or how you were feeling) or was it to get attention, revenge or a reaction from others? Or both? (5) Completely to end or stop the pain (you couldn't go on living with the pain or how you were feeling) Total Suicidal Ideation Intensity Score* (add values of selected answers above) *Score can range from 2- 25: -Low: 2-5 -Moderate: 6-10 -Moderately Severe: 11-15 -Severe: 16-20 -Very Severe: 21-25 Moderately Severe Step 4: Guidelines to Determine Level of Risk and Develop Interventions to LOWER Risk Level: Assessment of risk level is based on clinical judgment after completing steps 1-3. The Suicide Ideation Intensity Score does not directly correlate to Suicide Risk. The Suicide Ideation Intensity score must be used in conjunction with clinical judgment to determine risk stratification. Initial Risk Stratification Suggested Interventions High Suicide Risk Suicidal ideation with intent or intent with plan in past month (C-SSRS Suicidal Ideation #4 or #5) OR Suicidal behavior within past 3 months (C-SSRS Suicidal Behavior) High Suicide Precautions 1:1 observation All belongings secured Hospital attire Elopement precautions Minimize environment risk in room Moderate-High Suicide Risk Suicidal ideation with method WITHOUT plan, intent or behavior in past month (C- SSRS Suicidal Ideation #3) OR Multiple risk factors and few protective factors Moderate-High Suicide Precautions Patient sitter not required May keep items evaluated as safe, other belongings secured Hospital attire Minimize environment risk in room Moderate-Low Suicide Risk Suicidal behavior more than 3 months ago (C-SSRS Suicidal Behavior Lifetime) OR Multiple risk factors and few protective factors Moderate-Low Suicide Precautions Resources given to patient Nursing handoff precautions Low Suicide Risk Wish to or Suicidal Ideation WITHOUT method, intent, plan or behavior (C- SSRS Suicidal Ideation#1 or #2) OR Modifiable risk factors and strong protective factors OR No reported history of Suicidal Ideation or Behavior Low Suicide Precautions Resources given to patient Step 5: Assessment and Plan: Updated Risk Level: Low Suicide Risk Rationale for risk level decision and actions taken: Patient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 The humerus appears normal. No evidence of a destructive bony lesion to suggest osteomyelitis. There is subcutaneous fat stranding in the anterior upper arm with skin thickening. There is no evidence of an abscess or other fluid collection. IMPRESSION: 1. THERE IS IRREGULAR SKIN THICKENING WITH SUBCUTANEOUS FAT STRANDING IN THE ANTERIOR UPPER ARM. 2. NO EVIDENCE OF AN ABSCESS OR OTHER FLUID COLLECTION. 3. NO BONY ABNORMALITY IS SEEN. Electronically signed by: Ravi Palacios M.D. Alejandro Carrillo MD [facility] [place] PROCEDURES Final Result * CT Humerus Right WO Contrast (09/06/2023 4:43 PM CDT) Anatomical Region Laterality Modality Upper Extremities Right Computed Tomog julio 09/06/2023 5:12 PM CDT Impressions 09/06/2023 5:12 PM CDT 1. ??THERE IS IRREGULAR SKIN THICKENING WITH SUBCUTANEOUS FAT STRANDING IN THE ANTERIOR UPPER ARM. 2. ??NO EVIDENCE OF AN ABSCESS OR OTHER FLUID COLLECTION. 3. ??NO BONY ABNORMALITY IS SEEN. Electronically signed by: Ravi Palacios M.D. Narrative 09/06/2023 5:12 PM CDT EXAMINATION: CT HUMERUS RIGHT WO CONTRAST DATE: 09/06/2023 4:35 PM HISTORY: Soft tissue infection in the upper arm. ??Rule out fluid collection. TECHNIQUE: Transaxial computed tomographic images of the right humerus were obtained without the administration of intravenous contrast. Multiplanar coronal and sagittal images were reformatted. COMPARISON: None FINDINGS: The humerus appears normal. ??No evidence of a destructive bony lesion to suggest osteomyelitis. ??There is subcutaneous fat stranding in the anterior upper arm with skin thickening. ??There is no evidence of an abscess or other fluid collection. Procedure Note Ravi Palacios MD - 09/06/2023 EXAMINATION: CT HUMERUS RIGHT WO CONTRAST DATE: 09/06/2023 4:35 PM HISTORY: Soft tissue infection in the upper arm. Rule out fluid collection. TECHNIQUE: Transaxial computed tomographic images of the right humerus were obtained without the administration of intravenous contrast. Multiplanar coronal and sagittal images were reformatted. COMPARISON: None FINDINGS: The humerus appears normal. No evidence of a destructive bony lesion to suggest osteomyelitis. There is subcutaneous fat stranding in the anterior upper arm with skin thickening. There is no evidence of an abscess or other fluid collection. IMPRESSION: 1. THERE IS IRREGULAR SKIN THICKENING WITH SUBCUTANEOUS FAT STRANDING IN THE ANTERIOR UPPER ARM. 2. NO EVIDENCE OF AN ABSCESS OR OTHER FLUID COLLECTION. 3. NO BONY ABNORMALITY IS SEEN. Electronically signed by: Ravi Palacios M.D. Alejandro Carrillo MD IMG CT PROCEDURES Final Result * HIV 1/2 Antibody plus p24 Antigen Blood (09/06/2023 4:09 AM CDT) HIV 1/2 ab + p24 ag Nonreactive Nonreactive Comment: Nonreactive for HIV-1 antigen and HIV-1/HIV-2 antibodies. No laboratory evidence of HIV infection. If acute HIV infection is suspected, consider testing for HIV-1 RNA. Blood 09/06/2023 4:09 AM CDT 09/06/2023 4:53 AM CDT Alejandro Carrillo MD LAB MICROBIOLOGY - GENERAL [facility] Final Result [facility] CH[facility]O [id number] Department [place] [address] * Hepatitis panel, acute Blood (09/05/2023 12:54 PM CDT) Hep A IgM Nonreactive Nonreactive Comment: Interpretive Data: If Hep A IgM Ab is reported as Equivocal, a new sample should be drawn in two weeks for testing. Current interpretive data was last revised on 19. Hep B core IgM Nonreactive Nonreactive [facility] CHAPARRO Comment: Interpretive Data If HepB Core IgM [...] last revised on 2019. HepBsAg Nonreactive Nonreactive [facility] Blood 09/05/2023 12:5 4 PM CDT 09/05/2023 1:19 PM CDT Janet Borges MD LAB [facility] [employer] - Presentain ORDERABLES Final Result Performing Organization Address City/[facility] Co de Phone Number [facility] [id number] [address] Department [place] [address] * HIV 1/2 Antibody plus p24 Antigen Blood (09/05/2023 12:54 PM CDT) Pathologist [facility] HIV 1/2 ab + p24 ag Nonreactive Nonreactive Comment: Nonreactive for HIV-1 antigen and HIV-1/HIV-2 antibodies. No laboratory evidence of HIV infection. If acute HIV infection is suspected, consider testing for HIV-1 RNA. Blood 09/05/2023 12:5 4 PM CDT 09/05/2023 1:32 PM CDT Janet Borges MD LAB [facility] [employer] - GENERAL ORDERABLES Final Result [facility] [id number] [address] Department [place] [place] [address] * Blood culture Blood Forearm, left (09/05/2023 12:54 PM CDT) Report Final Report: No growth Comment:Testing performed by : [facility], [address] [facility], [place]., [address] Blood (Forearm, left) 09/05/2023 12:54 PM CDT 09/05/2023 6:04 PM CDT Steven LAURA KRYSTA Valencia 09/10/2023 7:00 AM CDT From a different site than #1. Collection->Peripheral 1. ?Blood cultures are incubated for 4 days on a continuously monitored blood culture system. The first report of a negative culture is issued within 24 hours of receipt of the specimen in the laboratory. 2. ?Positive culture results are reported as soon as they are detected. 3. ?The most important factor for detection of microbes in the setting of bloodstream infection is the volume of blood submitted for culture. Failure to collect an optimal blood volume can result in false negative blood cultures. For pediatric patients, the recommended blood volume to collect is 1 mL of blood per year of patient age (up to 20 mL) per blood culture set. For adult patients, 20 mL of blood, divided equally between aerobic and anaerobic blood culture bottles, is recommended for each blood culture set. 4. ?For blood cultures with Gram-positive cocci, a rapid molecular test for organism identification may be performed using the [employer] Gram-Positive Blood Culture Assay. This assay detects microbial DNA in positive blood culture broth via hybridization of target DNA to capture oligonucleotides on a microarray. This assay has been cleared by the [place] Food and Drug Administration and its performance characteristics have been verified by the [facility]. 5. ?For questions about this culture, contact the Microbiology Laboratory at [phone]. Interpretive data was last revised on 2019. Flavia Lange MD LAB MICROBIOLOGY - GENERAL OR DERABLES Final Result [facility]A [facility]O [address] Department [place] [address] * ECG 12 lead (09/05/2023 7:04 AM CDT) 09/05/2023 7:04 AM CDT Narrative [facility] - 09/05/2023 8:35 AM CDT Vent Rate: 78 bpm RR Interval: 762 msec SD Interval: 170 msec QRS Duration: 101 msec QT Interval: 382 msec QTC Interval: 416 msec P-R-T Wagner: -6 - 6 - 5 degrees IMPRESSION: SINUS RHYTHM NORMAL ECG Compared to previous ECG the sinus bradycardia is no longer present. ??The T- wave abnormality has resolved. Electronically Signed By: Ruben Piedra MD, [facility] us Rosemarie Vergara MD ECG ORDERABLES Final Result [facility] * Opiates Confirmation, Urine (09/05/2023 6:33 AM CDT) Codeine Conf, Ur Does Not Confirm CutOff 50 ng/mL Comment:Testing performed by : [facility], [address] [place]., [address] 6- Acetylmorphine Conf, Ur Does Not Confirm CutOff 10 ng/mL CERNER Comment:Testing performed by : [facility], [address] [place]., [address] Hydrocodone Conf, Ur Does Not Confirm CutOff 50 ng/mL CERNER Comment:Testing performed by : [facility], [address] [place] [address] Morphine Conf, Ur Does Not Confirm CutOff 50 ng/mL CERNER Comment:Testing performed by : [facility], [address] [place]., [address] Hydromorphone Conf, Ur Does Not Confirm CutOff 50 ng/mL CERNER Comment: Interpretive Data This test detects the presence or absence of drug compounds using LC Tandem mass spectrometry and is not intended to assess compliance with prescribed medications. While this test is highly specific, false positive and false negative results may occur in very rare circumstances. Contact the laboratory for consultation, if needed. Performance characteristics were determined by the [facility] in a manner consistent with CLIA requirement and has not been cleared or approved by the U.S. Food and Drug Administration. Current interpretive data was last revised 2020. Testing performed by: [facility], [address] [place]., [address] Urine 09/05/2023 6:33 AM CDT 09/05/2023 8:49 AM CDT Vira Warren NP LAB URINE ORDERABLES Final R esult LAURA [address] [address] Department [place] [address] * (ABNORMAL) Fentanyl Confirmation, Urine (09/05/2023 6:33 AM CDT) Fentanyl Conf, Ur Confirmed Positive(A) Cutoff 0.3ng/mL Comment:Testing performed by : [facility], [address] [place] [address]., [address] Acetylfentanyl Conf, Ur Does Not Confirm Cutoff 1 ng/mL [facility]ERTR[facility]IS Comment:Testing performed by : [facility], [address] [place] [address]., [address] Acrylfentanyl Conf, Ur Does Not Confirm Cutoff 1 ng/mL CERNER Comment:Testing performed by : [facility], [address] [place] [address]., [address] Furanylfentanyl Conf, Ur Does Not Confirm Cutoff 1 ng/mL [facility] Comment:Testing performed by : [facility], [address] [place] [address]., [address] Fentanyl Metabolite (Norfentanyl) Conf, Ur Confirmed Positive(A) CutOff 5 ng/mL CERNER Comment:Testing performed by : [facility], [address] [place] [address]., [address] Xylazine MS Confirmed Positive(A) Cutoff 1 ng/mL [facility] Comment: Interpretive Data This test detects the presence or absence of drug compounds using LC Tandem mass spectrometry and is not intended to assess compliance with prescribed medications. While this test is highly specific, false positive and false negative results may occur in very rare circumstances. Contact the laboratory for consultation, if needed. Performance characteristics were determined by the [facility] in a manner consistent with CLIA requirement and has not been cleared or approved by the U.S. Food and Drug Administration. Current interpretive data was last revised 2020. Testing performed by: [facility], [address] [place]., [address] Urine 09/05/2023 6:33 AM CDT 09/05/2023 8:49 AM CDT Vira Warren LAB URINE ORDERABLES Final R esult Performing Organization Address [facility] Co de Phone Number LAURA CAHPARRO [phone] [address] [place] [address] * (ABNORMAL) Urinalysis, microscopic only (09/05/2023 6:33 AM CDT) WBC, ur 0-5 0 - 5 /HPF RBC, ur 3-5(A) 0 - 2 /HPF [facility] Epithelial cells, squamous, ur 6-10(A) 0 - 5 /HPF [facility] Comment:Suggestive of contam ination. Consider recollection by clean catch. Mucous, ur Present(A) [facility] Uric acid crystals, ur Trace(A) [facility] Culture Reflex Comment Reflex conditions for urine culture (WBC >10) not met. [facility] Urine 09/05/2023 6:33 AM CDT 09/05/2023 6:38 AM CDT Vira Warren LAB URINE ORDERABLES Final R esult Performing Organization Address [facility] Co de Phone Number DON[facility] CHAPARRO [id number] [address] [place] [address] * (ABNORMAL) Drugs of Abuse Screen, Urine with Reflex Confirmation (09/05/2023 6:33 AM CDT) Amphetamine, ur Not Detected CutOff 500ng/mL Comment: Interpretive Data - Amphetamines: ??Samples containing greater than 500 ng/mL d-methamphetamine ??or other cross-reacting amphetamine compounds are reported as positive. ??Amphetamine immunoassays are subject to significant false positive rates due to cross-reactivity of non-amphetamine drugs. Confirmatory testing required for definitive results. Current Interpretive Data was last reviewed 2022. Barbiturates, ur Not Detected CutOff 200ng/mL CERNER Comment: Interpretive Data - Barbiturates: ??Samples containing greater than 200 ng/mL secobarbital or other cross-reacting barbiturate compounds are reported as positive. ??False positive and false negative results are possible. Confirmatory testing required for definitive results. Current Interpretive Data was last reviewed 2022. Benzodiazepines, ur Screen Positive, presumptive (A) CutOff 100ng/mL CERNER Comment: Interpretive Data - Benzodiazepines: ??Samples containing greater than 100 ng/mL nordiazepam or other cross-reacting compounds are reported as positive. False positive and false negative results are possible. Confirmatory testing required for definitive results. Current Interpretive Data was last reviewed 2022. Cannabinoids, ur Screen Positive, presumptive (A) CutOff 50 ng/mL CERNER Comment: Interpretive Data - Cannabinoids: ??Samples containing greater than 50 ng/mL delta-9 THC -COOH or other cross-reacting compounds are reported as positive. ??False positive and false negative results are possible. ??Confirmatory testing required for definitive results. Current Interpretive Data was last reviewed 2022. Cocaine, ur Not Detected CutOff 150ng/mL CERNER Comment: Interpretive Data - Cocaine: ??Samples containing greater than 150 ng/mL benzoylecgonine or other cross-reacting compounds are reported as positive. False positive and false negative results are possible. Confirmatory testing required for definitive results. Current Interpretive Data was last reviewed 2022. Fentanyl, Ur Screen Positive, presumptive (A) CutOff 5 ng/mL CERNER Comment: Interpretive Data - Fentanyl: ?? Samples containing greater than 5 ng/mL norfentanyl, fentanyl, or other cross-reacting fentanyl compounds are reported as positive. False positive and false negative results are possible. Confirmatory testing required for definitive results. Current Interpretive Data was last reviewed 2023. Methadone, ur Not Detected CutOff 300ng/mL CERNER Comment: Interpretive Data - Methadone: ??Samples containing greater than 300 ng/mL d,l-methadone or other cross-reacting compounds are reported as positive. ??False positive and false negative results are possible. Confirmatory testing required for definitive results. Current Interpretive Data was last reviewed 2022. Opiates, ur Screen Positive, presumptive (A) CutOff 300ng/mL [facility] Comment: Interpretive Data - Opiates: ??Samples containing greater than 300 ng/mL morphine or other cross-reacting compounds are reported as positive. ??False positive and false negative results are possible. Confirmatory testing required for definitive results. Current Interpretive Data was last reviewed 2022. Oxycodone, ur Not Detected CutOff 100ng/mL [facility] Comment: Interpretive Data - Oxycodone: ??Samples containing greater than 100 ng/mL oxycodone or other cross-reacting compounds are reported as ??positive. ??False positive and false negative results are possible. Confirmatory testing required for definitive results. Current Interpretive Data was last reviewed 2022. Phencyclidine, ur Not Detected CutOff 25 ng/mL [facility] Comment: Interpretive Data - Phencyclidine: ??Samples containing greater than 25 ng/mL phencyclidine or other cross-reacting compounds are reported as positive. ??False positive and false negative results are possible. Confirmatory testing required for definitive results. Current Interpretive Data was last reviewed 2022. Urine Creatinine 308 mg/dL [facility]A Comment: Interpretive Data Urine Creatinine: < 10 mg/dL is extremely dilute = or > 10 but < 20 mg/dL is dilute = or > 20 mg/dL is normal Current Interpretive Data was last revised on 2017. Urine 09/05/2023 6:33 AM CDT 09/05/2023 6:38 AM CDT Narrative [facility] - 09/05/2023 7:33 AM CDT Drug of Abuse screening is performed by immunoassay for medical purposes only. ??This is not to be used for Pain Management purposes. ??If Detected, confirmation testing will be performed for Amphetamines, Cocaine, Fentanyl, Methadone, Opiates, Oxycodone or Phencyclidine. us Vira Warren NP LAB URINE ORDERABLES Final R esult [facility]O [address] [address] Department of Laboratories [place], [place] [id number] * (ABNORMAL) Urinalysis reflex to microscopic and culture Urine (09/05/2023 6:33 AM CDT) Color, ur Mayra Yellow Clarity, ur Clear Clear [facility] CH Specific gravity, ur 1.028 1.003 - 1.030 [facility] CH pH, urine 5.0 [facility] Comment: Interpretive Data ? Urine pH is affected by diet, medications, systemic acid-base disturbances, and renal tubular function. ??pH may affect urinary stone formation. ??For example, urine pH below 6.0 may help reduce the tendency for calcium phosphate stones and pH greater than 6.0 may reduce the tendency for uric acid stone formation. Source: [facility] [employer] Current Interpretive Data was last revised on 2017 Protein, ur ql Negative Negative [facility] CH Glucose, ur ql Negative Negative [facility] CH Ketones, ur Negative Negative [facility] Bilirubin, ur Negative Negative [facility] Blood, ur Negative Negative [facility] Urobilinogen, ur 4.0(A) <2.0 mg/dL [facility] CH Nitrite, ur Negative Negative [facility] CH Leukocyte esterase, ur 1+(A) Negative CERNER CH UA reflex comment Reflex to microscopic UA will be performed. CERNER Urine 09/05/2023 6:33 AM CDT 09/05/2023 6:38 AM CDT Vira Warren NP LAB MICROBIOLOGY - GENERAL O RDERABLES Final Result [facility]O [address] [address] Department [place] [address] * eGFR (09/04/2023 12:03 PM CDT) eGFR 72 >=60 mL/min/1. 73 m2 Comment: Interpretive Data Reference Interval Normal ?>/= 90 mL/min/1.73m2 Mildly decreased* ? 60 - 89 mL/min/1.73m2 Mildly to moderately decreased ?45 - 59 mL/min/1.73m2 Moderately to severely decreased ??30 - 44 mL/min/1.73m2 Severely decreased ?15 - 29 mL/min/1.73m2 Kidney Failure ?< 15 ??mL/min/1.73m2 *Relative to young adult level Estimated glomerular filtration rate is determined by the 2020 CKD-EPI equation recommended by the National Kidney Foundation (A Unifying Approach to GFR Estimation: Recommendations of the NKF-ASK Task Force on Reassessing the Inclusion of Race in Diagnosing Kidney Disease, JASN 2020). The CKD-EPI equation should not be used for patients with unstable renal function and has not been validated in children and those over 70. Current interpretive data was last reviewed 2021. Blood 09/04/2023 12:0 3 PM CDT 09/04/2023 12:12 PM CDT us Vira Warren NP LAB BLOOD ORDERABLES Final R esult [facility] [address] [address] Department [place] [address] * Differential, auto (09/04/2023 12:03 PM CDT) Neutrophil abs 5.5 1.5 - 6.5 K/cumm Imm gran abs 0.0 0.0 - 0.1 K/cumm CERNER Lymphocyte abs 0.9 0.8 - 3.3 K/cumm [facility] CH Monocyte abs 0.3 0.2 - 0.8 K/cumm CERNER Eosinophil abs 0.2 0.0 - 0.5 K/cumm [facility] Basophil abs 0.0 0.0 - 0.1 K/cumm [facility] Neutrophil pct 79.5 % CERNER Comment: Interpretive Data Percent cell count reference ranges are not reported, since discordance with absolute values may lead to misinterpretation of CBC data. Current Interpretive Data was last revised on 2017. Imm gran pct 0.4 % [facility] Comment: Interpretive Data Percent cell count reference ranges are not reported, since discordance with absolute values may lead to misinterpretation of CBC data. Current Interpretive Data was last revised on 2017. Lymphocyte pct 13.1 % [facility] Comment: Interpretive Data Percent cell count reference ranges are not reported, since discordance with absolute values may lead to misinterpretation of CBC data. Current Interpretive Data was last revised on 2017. Monocyte pct 4.7 % [facility] Comment: Interpretive Data Percent cell count reference ranges are not reported, since discordance with absolute values may lead to misinterpretation of CBC data. Current Interpretive Data was last revised on 2017. Eosinophil pct 2.2 % [facility] Comment: Interpretive Data Percent cell count reference ranges are not reported, since discordance with absolute values may lead to misinterpretation of CBC data. Current Interpretive Data was last revised on 2017. Basophil pct 0.1 % [facility] Comment: Interpretive Data Percent cell count reference ranges are not reported, since discordance with absolute values may lead to misinterpretation of CBC data. Current Interpretive Data was last revised on 2017. Blood 09/04/2023 12:0 3 PM CDT 09/04/2023 12:17 PM CDT Vira Warren NP LAB BLOOD ORDERABLES Final R esult LAURA [id number] Department [place] [address] * Blood culture Blood (09/04/2023 12:03 PM CDT) Report Final Report: No growth Comment:Testing performed by : [facility], [address] [place] [address] Blood 09/04/2023 12:0 3 PM CDT 09/04/2023 2:40 PM CDT Narrative LAURA CHAPARRO - 09/08/2023 4:01 PM CDT Collection->Peripheral 1. ?Blood cultures are incubated for 4 days on a continuously monitored blood culture system. The first report of a negative culture is issued within 24 hours of receipt of the specimen in the laboratory. 2. ?Positive culture results are reported as soon as they are detected. 3. ?The most important factor for detection of microbes in the setting of bloodstream infection is the volume of blood submitted for culture. Failure to collect an optimal blood volume can result in false negative blood cultures. For pediatric patients, the recommended blood volume to collect is 1 mL of blood per year of patient age (up to 20 mL) per blood culture set. For adult patients, 20 mL of blood, divided equally between aerobic and anaerobic blood culture bottles, is recommended for each blood culture set. 4. ?For blood cultures with Gram-positive cocci, a rapid molecular test for organism identification may be performed using the [employer] Gram-Positive Blood Culture Assay. This assay detects microbial DNA in positive blood culture broth via hybridization of target DNA to capture oligonucleotides on a microarray. This assay has been cleared by the [place] Food and Drug Administration and its performance characteristics have been verified by the [facility]. 5. ?For questions about this culture, contact the Microbiology Laboratory at [phone]. Interpretive data was last revised on 2019. Flavia Lange MD LAB MICROBIOLOGY - GENERAL OR DERABLES Final Result LAURA [address] Department [place] [address] * Vancomycin level random (09/04/2023 12:03 PM CDT) [facility] Vancomycin random 9.1 mcg/mL Comment: Interpretive Data No reference ranges have been established for random drug levels. Current Interpretive Data was last revised on 2020. Blood 09/04/2023 12:0 3 PM CDT 09/04/2023 12:12 PM CDT us Vira Warren NP LAB BLOOD ORDERABLES Final R esult [facility] [address] Department [place] [address] * Comprehensive metabolic panel (09/04/2023 12:03 PM CDT) Sodium 136 135 - 145 mmol/L Potassium, pl 3.7 3.3 - 4.9 mmol/L [facility] Chloride 101 97 - 110 mmol/L [facility] CO2 25 22 - 32 mmol/L [facility] Anion gap 10 2 - 15 mmol/L [facility] BUN 15 6 - 25 mg/dL [facility] Creatinine 1.00 0.60 - 1.10 mg/dL [facility] Glucose 107 70 - 199 mg/dL [facility] Comment: Interpretive Data Fasting glucose >/= 126 mg/dl is diagnostic for diabetes. ?? Fasting is defined as no caloric intake for at least 8 hours. Fasting glucose between 100 mg/dl to 125 mg/dl is diagnostic of prediabetes. In a patient with classic symptoms of hyperglycemia or hyperglycemic crisis, a random glucose >/= 200 mg/dl is diagnostic for diabetes. In the absence of unequivocal hyperglycemia, results should be confirmed by repeat testing. The classification and Diagnosis of Diabetes Diabetes Care 202; 46: S19-S40. Current interpretive data was last revised 2022. Calcium 8.8 8.5 - 10.3 mg/dL [facility] Bilirubin, total 0.6 0.1 - 1.2 mg/dL [facility] Protein, pl 6.8 6.5 - 8.5 g/dL [facility] Albumin 3.5 3.5 - 5.0 g/dL [facility] Alk phos 79 40 - 130 Units/L [facility] ALT 20 7 - 45 Units/L [facility] AST 17 10 - 45 Units/L [facility] Blood 09/04/2023 12:0 3 PM CDT 09/04/2023 12:12 PM CDT Vira Warren NP LAB BLOOD ORDERABLES Final R esult LAURA CHAPARRO [address] Department [place] [address] * (ABNORMAL) CBC with auto differential (09/04/2023 12:03 PM CDT) Pathologist [facility] WBC 7.0 3.8 - 9.9 K/cumm Hgb 10.6(L) 11.9 - 15.5 g/dL [facility] Hct 32.8(L) 35.6 - 45.5 % [facility] Plt 188 150 - 400 K/cumm [facility] MPV 10.8 9.1 - 12.3 fL [facility] RBC 3.94 3.90 - 5.20 M/cumm [facility] MCV 83.2 81.3 - 96.4 fL [facility] MCH 26.9(L) 27.1 - 33.3 pg [facility] MCHC 32.3 32.3 - 35.7 g/dL [facility] RDW CV 14.0 11.1 - 14.9 % [facility] RDW SD 42.7 35.7 - 48.1 fL [facility] NRBC abs 0.00 0.00 - 0.01 K/cumm [facility] Blood 09/04/2023 12:0 3 PM CDT 09/04/2023 12:17 PM CDT us Vira Warren NP LAB BLOOD ORDERABLES Final R esult Performing Organization Address [facility]/ZIP Co de Phone Number LAURA [address] Department [place] [address] * (ABNORMAL) Aerobic culture and gram stain Wound Arm, right (09/04/2023 11:42 AM CDT) Pathologist [facility] Direct Specimen Exam Stain: No polymorphonuclear leukocytes seen. Few Gram Positive Cocci Comment:Testing performed by : [facility], [address] [place] [address], [place]., [address] Report Final Report: Moderate Staphylococcus aureus Methicillin resistant (MRSA) by penicillin binding protein 2a (PBP2a) testing. (.) [facility]ERNER Comment:Testing performed by : [facility], [address] [place] [address] Organism STAPHYLOCOCCUS AUREUS LAURA Wound (Arm, right) 09/04/2023 11:42 AM CDT 09/04/2023 2:33 PM CDT Narrative LAURA CHAPARRO - 09/07/2023 2:21 PM CDT Specimen received on an ESwab. Testing performed by [facility] ([phone]) Specimens submitted from normally sterile body sites will have all bacterial morphotypes identified. ??Specimens that contain grossly mixed renay and/or are from body sites that are not normally sterile will be examined for Staphylococcus aureus, Pseudomonas aeruginosa, beta-hemolytic strep, vancomycin-resistant Enterococcus and fungus. ??If any of these are isolated, the organism will be reported. Current interpretive data was last revised on 2016. Organism Antibiotic Method Susceptibility Staphylococcus aureus Vancomycin INTERPRETATION Susceptible Staphylococcus aureus Ceftaroline INTERPRETATION Susceptible Staphylococcus aureus Trimethoprim with Sulfamethoxazole INTERPRETATION Susceptible Staphylococcus aureus Linezolid INTERPRETATION Susceptible Staphylococcus aureus Doxycycline INTERPRETATION Susceptible Staphylococcus aureus Clindamycin INTERPRETATION Susceptible Staphylococcus aureus Erythromycin INTERPRETATION Resistant Staphylococcus aureus Oxacillin INTERPRETATION Resistant Staphylococcus aureus Cefazolin INTERPRETATION Resistant Staphylococcus aureus Ceftriaxone INTERPRETATION Resistant us Flavia Lange MD LAB MICROBIOLOGY - GENERAL OR DERABLES Final Result LAURA [address] Department [place] [address] * (ABNORMAL) Aerobic and anaerobic culture and gram stain Wound Arm, left (09/03/2023 11:53 PM CDT) Direct Specimen Exam Stain: Rare polymorphonuclear leukocytes seen. Abundant Gram Positive Cocci Comment:Testing performed by : [facility], [address] [place] [address], [place] [address] Report Final Report: Abundant Staphylococcus aureus Methicillin resistant (MRSA) by penicillin binding protein 2a (PBP2a) testing. (.) LAURA CHAPARRO Comment:Testing performed by : [facility], [address] [place] [address], [place]., [address] Organism STAPHYLOCOCCUS AUREUS LAURA Wound (Arm, left) 09/03/2023 11:53 PM CDT 09/04/2023 6:41 AM CDT Narrative LAURA CHAPARRO - 09/10/2023 3:18 PM CDT Specimen received on an ESwab. Testing performed by [facility] ([phone]) Specimens submitted from normally sterile body sites will have all bacterial morphotypes identified. Specimens that contain grossly mixed renay and/or are from body sites that are [...] Resistant Staphylococcus aureus Ceftriaxone INTERPRETATION Resistant us Vira Warren NP LAB MICROBIOLOGY - GENERAL O RDERABLES Final Result LAURA [address] Department [place] [address] documented in this encounter Visit Diagnoses Diagnosis Cellulitis of left upper extremity- Primary Cellulitis of left upper extremity Fentanyl use disorder, moderate, dependence (CMS/HCC) (HCC) documented in this encounter Admitting Diagnoses Diagnosis Palpitations documented in this encounter Administered Medications Inactive Administered Medications - up to 3 most recent administrations Medication Order MAR Action Action Date Dose Rate Site acetaminophen (TYLENOL) tablet 650 mg 650 mg, oral, Every 6 hours PRN, 1st line for pain, headaches, fever, Starting on 09/03/23 at 2346 buprenorphine-naloxone (SUBOXONE) 8-2 mg per sublingual tablet 1 tablet 1 tablet, sublingual, Every 6 hours PRN, withdrawal symptoms, Starting on 09/05/23 at 0946 chlordiazePOXIDE (LIBRIUM) capsule 25 mg 25 mg, oral, 4 times daily, First dose on 09/04/23 at 1045 Given 09/05/2023 12:56 PM CDT 25 mg Given 09/05/2023 8:17 AM CDT 25 mg Given 09/04/2023 8:29 PM CDT 25 mg cloNIDine (CATAPRES) tablet 0.1 mg 0.1 mg, oral, Once, On 09/04/23 at 0030, For 1 dose, Check blood pressure and heart rate in one hour. Hold clonidine if blood pressure is less than 90/60 or heart rate less than 60 and notify physician., Indications: Opioid Withdrawal SymptomsIndications:Opioid Withdrawal Symptoms Given 09/03/2023 11:58 PM CDT 0.1 mg cloNIDine (CATAPRES) tablet 0.1 mg 0.1 mg, oral, 4 times daily PRN, other, opioid withdrawal score 5-11, Starting on 09/03/23 at 2350, For 4 days, Hold clonidine if blood pressure is less than 90/60 or heart rate less than 60 and notify physician., Indications: Opioid Withdrawal SymptomsIndications:Opioid Withdrawal Symptoms Given 09/06/2023 9:11 PM CDT 0.1 mg cloNIDine (CATAPRES) tablet 0.1 mg 0.1 mg, oral, 2 times daily PRN, other, opioid withdrawal score 5-11, Starting on Janett 09/08/23 at 0000, For 2 days, Hold clonidine if blood pressure is less than 90/60 or heart rate less than 60 and notify physician., Indications: Opioid Withdrawal SymptomsIndications:Opioid Withdrawal Symptoms cloNIDine (CATAPRES) tablet 0.1 mg 0.1 mg, oral, 4 times daily PRN, other, opioid withdrawal score 12-24, Starting on Janett 09/08/23 at 0000, For 2 days, Hold clonidine if blood pressure is less than 90/60 or heart rate less than 60 and notify physician., Indications: Opioid Withdrawal SymptomsIndications:Opioid Withdrawal Symptoms cloNIDine (CATAPRES) tablet 0.1 mg 0.1 mg, oral, Daily PRN, other, opioid withdrawal score 5-11, Starting on 09/10/23 at 0000, For 2 days, Hold clonidine if blood pressure is less than 90/60 or heart rate less than 60 and notify physician., Indications: Opioid Withdrawal SymptomsIndications:Opioid Withdrawal Symptoms cloNIDine (CATAPRES) tablet 0.1 mg 0.1 mg, oral, 2 times daily PRN, other, opioid withdrawal score 12-24, Starting on 09/10/23 at 0000, For 2 days, Hold clonidine if blood pressure is less than 90/60 or heart rate less than 60 and notify physician., Indications: Opioid Withdrawal SymptomsIndications:Opioid Withdrawal Symptoms cloNIDine (CATAPRES) tablet 0.2 mg 0.2 mg, oral, 4 times daily PRN, other, opioid withdrawal score 12-24, Starting on 09/03/23 at 2350, For 4 days, Hold clonidine if blood pressure is less than 90/60 or heart rate less than 60 and notify physician. docusate sodium (COLACE) capsule 100 mg 100 mg, oral, 2 times daily PRN, constipation, Starting on 09/03/23 at 2309, Indications: constipationIndications:const ipation doxycycline monohydrate (MONODOX) capsule 100 mg 100 mg, oral, 2 times daily (for quinolones,etc), First dose on 09/04/23 at 1100, Give 2 hrs before or 2 hrs after MVI, antacids, or other products containing sucralfate, magnesium, aluminum, iron, or zinc. May be taken without regard to meals., Indications: cellulitisIndications:celluli tis Given 09/04/2023 11:47 AM CDT 100 mg enoxaparin (LOVENOX) syringe 40 mg 40 mg, subcutaneous, Daily (for enoxaparin), First dose on 09/03/23 at 2345, Indications: Deep Vein Thrombosis PreventionIndications:Deep Vein Thrombosis Prevention Given 09/06/2023 9:06 PM CDT 40 mg Right Lower Abdomen Given 09/05/2023 9:04 PM CDT 40 mg Le ft Lower Abdomen Given 09/04/2023 8:29 PM CDT 40 mg Ri ght Lower Abdomen gabapentin (NEURONTIN) capsule 300 mg 300 mg, oral, 2 times daily, First dose on 09/04/23 at 2100 Given 09/07/2023 7:58 AM CDT 300 mg Given 09/06/2023 9:06 PM CDT 300 mg Given 09/06/2023 8:16 AM CDT 300 mg hydrOXYzine (ATARAX) tablet 50 mg 50 mg, oral, 3 times daily PRN, anxiety, lacrimation, rhinorrhea, Starting on 09/03/23 at 2350, Indications: anxiety, lacrimation, rhinorrheaIndications:anxiety,lacrimation, rhinorrhea Given 09/07/2023 7:58 AM CDT 50 mg Given 09/06/2023 9:05 PM CDT 50 mg Given 09/05/2023 8:21 AM CDT 50 mg loperamide (IMODIUM) capsule 2 mg 2 mg, oral, Every 4 hours PRN, other, each subsequent loose stool, Starting on 09/03/23 at 2347, Do not exceed 16 mg per 24 hour time period., Indications: diarrheaIndications:diarrhea loperamide (IMODIUM) capsule 4 mg 4 mg, oral, Once as needed, other, first loose stool, Starting on 09/03/23 at 2347, For 1 dose, Maximum recommended dose 16 mg/day, Indications: diarrheaIndications:diarrhea LORazepam (ATIVAN) tablet 1 mg 1 mg, oral, Every 6 hours PRN, anxiety, Starting on 09/04/23 at 1021 Given 09/06/2023 2:17 PM CDT 1 mg Given 09/06/2023 8:16 AM CDT 1 mg Given 09/05/2023 8:21 AM CDT 1 mg methocarbamoL (ROBAXIN) tablet 1,500 mg 1,500 mg, oral, 3 times daily PRN, other, cramping, Starting on 09/03/23 at 2350, Indications: Muscle SpasmIndications:Muscle Spasm Given 09/06/2023 9:11 PM CDT 1,500 mg metroNIDAZOLE (FLAGYL) tablet 500 mg 500 mg, oral, 3 times daily, First dose on 09/04/23 at 1030, Indications: cellulitisIndications:cellulitis Given 09/04/2023 11:40 AM CDT 500 mg ondansetron (ZOFRAN) injection 4 mg 4 mg, intravenous, Administer over 2 Minutes, Every 6 hours PRN, nausea, vomiting, Starting on 09/03/23 at 2314 Given 09/04/2023 1:34 AM CDT 4 m g ondansetron (ZOFRAN) injection 4 mg 4 mg, intravenous, Administer over 2 Minutes, 3 times daily PRN, nausea, vomiting, if not tolerating PO, Starting on 09/03/23 at 2347, Indications: Nausea and VomitingIndications:Nausea and Vomiting Given 09/06/2023 8:16 AM CDT 4 mg Given 09/05/2023 5:57 PM CDT 4 mg ondansetron ODT (ZOFRAN-ODT) disintegrating tablet 4 mg 4 mg, oral, 3 times daily PRN, nausea, vomiting, Starting on Tue09/03/23 at 2347, Indications: Nausea and VomitingIndications:Nausea and Vomiting sodium chloride 0.9% flush 0.5-20 mL 0.5-20 mL, intra-catheter, Every 8 hours scheduled, First dose on Tue09/03/23 at 2345, Flush volume based on line type and size. Given 09/07/2023 6:52 AM CDT 10 mL Given 09/06/2023 9:06 PM CDT 10 mL Given 09/06/2023 2:18 PM CDT 10 mL traZODone (DESYREL) tablet 50 mg 50 mg, oral, Nightly PRN, sleep, insomnia, Starting on Tue09/03/23 at 2350, Indications: InsomniaIndications:Insomnia vancomycin 1,000 mg/200 mL in dextrose 5% (premix) 1,000 mg 1,000 mg (rounded from 1,116 mg = 15 mg/kg ? 74.4 kg), intravenous, Administer over 60 Minutes, Every 12 hours, First dose on Tue09/05/23 at 2100, Indications: Skin/Soft Tissue InfectionIndications:Skin/Soft Tissue Infection New Bag 09/07/2023 1:03 AM CDT 1,000 mg New Bag 09/06/2023 8:16 AM CDT 1,000 mg New 09/05/2023 9:04 PM CDT 1,000 mg vancomycin 1,000 mg/200 mL in dextrose 5% (premix) 1,000 mg 1,000 mg (rounded from 1,116 mg = 15 mg/kg ? 74.4 kg), intravenous, Administer over 60 Minutes, Every 12 hours, First dose (after last modification) on Tue09/07/23 at 1200, Indications: Skin/Soft Tissue InfectionIndications:Skin/Soft Tissue Infection New Bag 09/07/2023 12:26 PM CDT 1,000 mg vancomycin 1,750 mg/517.5 mL sodium chloride 0.9% (premix) 1,750 mg 1,750 mg (rounded from 1,860 mg = 25 mg/kg ? 74.4 kg), intravenous, Administer over 120 Minutes, Once, On 09/05/23 at 1345, For 1 dose, Indications: Skin/Soft Tissue InfectionIndications:Skin/Soft Tissue Infection New Bag 09/05/2023 3:35 PM CDT 1,750 mg documented in this encounter Discontinued Medications Medication Sig Discontinue Reason Start Date End Da te hydrOXYzine (ATARAX) 25 mg tabletIndications:anxi ety Take 1 tablet (25 mg total) by mouth 4 (four) times a day as needed for anxiety 08/06/2022 09/07/2023 escitalopram (LEXAPRO) 20 mg tabletIndications:Anxi ety with Depression Take 1 tablet (20 mg total) by mouth nightly Stop Taking at Discharge 08/06/2022 09/07/2023 documented as of this encounter Active and Recently Administered Medications Times are shown in CDT. Scheduled Medication Order 09/05/2023 09/06/2023 09/07/2023 chlordiazePOXIDE (LIBRIUM) capsule 25 mg (CANCELED) 25 mg, oral, 4 times daily, First dose on 09/04/23 at 1045 0817 (Given - Provider: Kathleen Gordon RN)1256 (Given - Provider: Kathleen Gordon RN) enoxaparin (LOVENOX) syringe 40 mg 40 mg, subcutaneous, Daily (for enoxaparin), First dose on 09/03/23 at 2345, Indications: Deep Vein Thrombosis Prevention 2103 (Given - Provider: Maira Forrester) 2105 (Given - Provider: Marina Rice RN) gabapentin (NEURONTIN) capsule 300 mg 300 mg, oral, 2 times daily, First dose on 09/04/23 at 2100 0817 (Given - Provider: Kathleen Gordon RN)2103 (Given - Provider: Maira Forrester) 0816 (Given - Provider: Chetna Saenz RN)2105 (Given - Provider: Marina Rice RN) 0758 (Given - Provider: Dianne Smalls RN) sodium chloride 0.9% flush 0.5-20 mL 0.5-20 mL, intra-catheter, Every 8 hours scheduled, First dose on Tue09/03/23 at 2345, Flush volume based on line type and size. 0508 (Not Given - Provider: Marina Rice RN - Reason: Loss of IV access)1539 (Not Given - Provider: Kathleen Gordon RN - Reason: Loss of IV access)2105 (Given - Provider: Maira Forrester) 0523 (Given - Provider: Maira Forrester)1418 (Given - Provider: Chetna Saenz RN)2106 (Given - Provider: Marina Rice RN) 0652 (Given - Provider: Marina Rice RN)1400 (Canceled Entry - Provider: Dianne Smalls RN) vancomycin 1,000 mg/200 mL in dextrose 5% (premix) 1,000 mg (CANCELED) 1,000 mg (rounded from 1,116 mg = 15 mg/kg ? 74.4 kg), intravenous, Administer over 60 Minutes, Every 12 hours, First dose on Tue09/05/23 at 2100, Indications: Skin/Soft Tissue Infection 2104 (New Bag - Provider: Maira Forrester) 0816 (New Bag - Provider: Chetna Saenz, ZANE) 0103 (New Bag - Provider: Marina Rice RN - Comment: loss of iv access) vancomycin 1,000 mg/200 mL in dextrose 5% (premix) 1,000 mg 1,000 mg (rounded from 1,116 mg = 15 mg/kg ? 74.4 kg), intravenous, Administer over 60 Minutes, Every 12 hours, First dose (after last modification) on Tue09/07/23 at 1200, Indications: Skin/Soft Tissue Infection 1226 (New Bag - Provider: Dianne Smalls, ZANE)1326 (Stopped - Provider: Dianne Smalls RN) vancomycin 1,750 mg/517.5 mL sodium chloride 0.9% (premix) 1,750 mg (COMPLETED) 1,750 mg (rounded from 1,860 mg = 25 mg/kg ? 74.4 kg), intravenous, Administer over 120 Minutes, Once, On Tue09/05/23 at 1345, For 1 dose, Indications: Skin/Soft Tissue Infection 1535 (New Bag - Provider: Kathleen Gordon, RN) PRN Medication Order 09/05/2023 09/06/2023 09/07/2023 acetaminophen (TYLENOL) tablet 650 mg 650 mg, oral, Every 6 hours PRN, 1st line for pain, headaches, fever, Starting on 09/03/23 at 2346 buprenorphine-naloxone (SUBOXONE) 8-2 mg per sublingual tablet 1 tablet 1 tablet, sublingual, Every 6 hours PRN, withdrawal symptoms, Starting on 09/05/23 at 0946 cloNIDine (CATAPRES) tablet 0.1 mg(Linked Group 1) 0.1 mg, oral, 4 times daily PRN, other, opioid withdrawal score 5-11, Starting on 09/03/23 at 2350, For 4 days, Hold clonidine if blood pressure is less than 90/60 or heart rate less than 60 and notify physician., Indications: Opioid Withdrawal Symptoms 2110 (Given - Provider: Marina Rice, RN) cloNIDine (CATAPRES) tablet 0.1 mg(Linked Group 2) 0.1 mg, oral, 2 times daily PRN, other, opioid withdrawal score 5-11, Starting on Janett 09/08/23 at 0000, For 2 days, Hold clonidine if blood pressure is less than 90/60 or heart rate less than 60 and notify physician., Indications: Opioid Withdrawal Symptoms cloNIDine (CATAPRES) tablet 0.1 mg(Linked Group 2) 0.1 mg, oral, 4 times daily PRN, other, opioid withdrawal score 12-24, Starting on Janett 09/08/23 at 0000, For 2 days, Hold clonidine if blood pressure is less than 90/60 or heart rate less than 60 and notify physician., Indications: Opioid Withdrawal Symptoms cloNIDine (CATAPRES) tablet 0.1 mg(Linked Group 3) 0.1 mg, oral, Daily PRN, other, opioid withdrawal score 5-11, Starting on 09/10/23 at 0000, For 2 days, Hold clonidine if blood pressure is less than 90/60 or heart rate less than 60 and notify physician., Indications: Opioid Withdrawal Symptoms cloNIDine (CATAPRES) tablet 0.1 mg(Linked Group 3) 0.1 mg, oral, 2 times daily PRN, other, opioid withdrawal score 12-24, Starting on 09/10/23 at 0000, For 2 days, Hold clonidine if blood pressure is less than 90/60 or heart rate less than 60 and notify physician., Indications: Opioid Withdrawal Symptoms cloNIDine (CATAPRES) tablet 0.2 mg(Linked Group 1) 0.2 mg, oral, 4 times daily PRN, other, opioid withdrawal score 12-24, Starting on 09/03/23 at 2350, For 4 days, Hold clonidine if blood pressure is less than 90/60 or heart rate less than 60 and notify physician. 2110 (See Alternative - Provider: Marina Rice RN) docusate sodium (COLACE) capsule 100 mg 100 mg, oral, 2 times daily PRN, constipation, Starting on 09/03/23 at 2309, Indications: constipation hydrOXYzine (ATARAX) tablet 50 mg 50 mg, oral, 3 times daily PRN, anxiety, lacrimation, rhinorrhea, Starting on 09/03/23 at 2350, Indications: anxiety, lacrimation, rhinorrhea 0821 (Given - Provider: Kathleen Gordon RN) 210 (Given - Provider: Marina Rice RN) 0758 (Given - Provider: Dianne Smalls RN) loperamide (IMODIUM) capsule 2 mg 2 mg, oral, Every 4 hours PRN, other, each subsequent loose stool, Starting on 09/03/23 at 2347, Do not exceed 16 mg per 24 hour time period., Indications: diarrhea loperamide (IMODIUM) capsule 4 mg 4 mg, oral, Once as needed, other, first loose stool, Starting on 09/03/23 at 2347, For 1 dose, Maximum recommended dose 16 mg/day, Indications: diarrhea LORazepam (ATIVAN) tablet 1 mg 1 mg, oral, Every 6 hours PRN, anxiety, Starting on 09/04/23 at 1021 0821 (Given - Provider: Kathleen Gordon RN) 0816 (Given - Provider: Chetna Saenz RN)1417 (Given - Provider: Chetna Saenz RN) methocarbamoL (ROBAXIN) tablet 1,500 mg 1,500 mg, oral, 3 times daily PRN, other, cramping, Starting on 09/03/23 at 2350, Indications: Muscle Spasm 2110 (Given - Provider: Marina Rice, ZANE) ondansetron (ZOFRAN) injection 4 mg 4 mg, intravenous, Administer over 2 Minutes, Every 6 hours PRN, nausea, vomiting, Starting on 09/03/23 at 2314 1800 (Canceled Entry - Provider: Kathleen Gordon RN - Comment: duplicate MAR-already given-see below) ondansetron (ZOFRAN) injection 4 mg(Linked Group 4) 4 mg, intravenous, Administer over 2 Minutes, 3 times daily PRN, nausea, vomiting, if not tolerating PO, Starting on 09/03/23 at 2347, Indications: Nausea and Vomiting 1757 (Given - Provider: Kathleen Gordon RN) 0816 (Given - Provider: Chetna Saenz, ZANE) ondansetron ODT (ZOFRAN-ODT) disintegrating tablet 4 mg(Linked Group 4) 4 mg, oral, 3 times daily PRN, nausea, vomiting, Starting on 09/03/23 at 2347, Indications: Nausea and Vomiting 1757 (See Alternative - Provider: Kathleen Gordon RN) 0816 (See Alternative - Provider: Chetna Saenz, ZANE) traZODone (DESYREL) tablet 50 mg 50 mg, oral, Nightly PRN, sleep, insomnia, Starting on 09/03/23 at 2350, Indications: Insomnia Linked Groups Order Group 1: cloNIDine (CATAPRES) tablet 0.1 mgJump to med 0.1 mg, oral, 4 times daily PRN, other, opioid withdrawal score 5-11, Starting on 09/03/23 at 2350, For 4 days, Hold clonidine if blood pressure is less than 90/60 or heart rate less than 60 and notify physician., Indications: Opioid Withdrawal Symptoms Or cloNIDine (CATAPRES) tablet 0.2 mgJump to med 0.2 mg, oral, 4 times daily PRN, other, opioid withdrawal score 12-24, Starting on 09/03/23 at 2350, For 4 days, Hold clonidine if blood pressure is less than 90/60 or heart rate less than 60 and notify physician. Group 2: cloNIDine (CATAPRES) tablet 0.1 mgJump to med 0.1 mg, oral, 2 times daily PRN, other, opioid withdrawal score 5-11, Starting on Janett 09/08/23 at 0000, For 2 days, Hold clonidine if blood pressure is less than 90/60 or heart rate less than 60 and notify physician., Indications: Opioid Withdrawal Symptoms Or cloNIDine (CATAPRES) tablet 0.1 mgJump to med 0.1 mg, oral, 4 times daily PRN, other, opioid withdrawal score 12-24, Starting on Janett 09/08/23 at 0000, For 2 days, Hold clonidine if blood pressure is less than 90/60 or heart rate less than 60 and notify physician., Indications: Opioid Withdrawal Symptoms Group 3: cloNIDine (CATAPRES) tablet 0.1 mgJump to med 0.1 mg, oral, Daily PRN, other, opioid withdrawal score 5-11, Starting on 09/10/23 at 0000, For 2 days, Hold clonidine if blood pressure is less than 90/60 or heart rate less than 60 and notify physician., Indications: Opioid Withdrawal Symptoms Or cloNIDine (CATAPRES) tablet 0.1 mgJump to med 0.1 mg, oral, 2 times daily PRN, other, opioid withdrawal score 12-24, Starting on 09/10/23 at 0000, For 2 days, Hold clonidine if blood pressure is less than 90/60 or heart rate less than 60 and notify physician., Indications: Opioid Withdrawal Symptoms Group 4: ondansetron ODT (ZOFRAN-ODT) disintegrating tablet 4 mgJump to med 4 mg, oral, 3 times daily PRN, nausea, vomiting, Starting on 09/03/23 at 2347, Indications: Nausea and Vomiting Or ondansetron (ZOFRAN) injection 4 mgJump to med 4 mg, intravenous, Administer over 2 Minutes, 3 times daily PRN, nausea, vomiting, if not tolerating PO, Starting on 09/03/23 at 2347, Indications: Nausea and Vomiting documented in this encounter Orders Medications Ordered That Timoteo ht Not Have Been Administered Count Last Ordered Date First Ordered Date buprenorphine-naloxone (SUBO XONE) 8-2 mg per sublingual tablet 1 tablet 1 09/05/2023 cefepime (MAXIPIME) 2,000 mg in sodium chloride 0.9% 100 mL IVPB 1 09/04/2023 acetaminophen (TYLENOL) tablet 650 mg 1 10/2023 cloNIDine (CATAPRES) tablet 0.1 mg 4 2023 cloNIDine (CATAPRES) tablet 0.2 mg 1 2023 docusate sodium (COLACE) capsule 100 mg 1 0 09/03/2023 loperamide (IMODIUM) capsule 2 mg 1 024 loperamide (IMODIUM) capsule 4 mg 1 024 ondansetron ODT (ZOFRAN-ODT) disintegrating tablet 4 mg 1 09/03/2023 traZODone (DESYREL) tablet 50 mg 1 09/03/19 24 vancomycin 1250 mg/250 mL in sodium chloride 0.9% (premix) 1,250 mg 1 09/03/2023 Nursing Count Last Ordered Date First Orde red Date MEASURE HEIGHT AND LENGTH 1 09/03/2023 WEIGH PATIENT 1 09/03/2023 Consult Count Last Ordered Date First Orde red Date IP CONSULT TO SOCIAL WORK 1 09/05/2023 IP CONSULT TO NUTRITION SERVICES 1 09/04/19 24 IP CONSULT TO PSYCHIATRY 1 09/04/2023 IP CONSULT TO VASCULAR ACCESS TEAM 1 2023 CONSULT TO BEHAVIORAL HEALTH [facility] 1 024 IP CONSULT TO INFECTIOUS DISEASES 1 024 Isolation Count Last Ordered Date First Orde red Date INITIATE CONTACT ISOLATION 1 09/03/2023 Admission Count Last Ordered Date First Orde red Date ADMIT TO INPATIENT 1 09/03/2023 Discharge Count Last Ordered Date First Orde red Date DISCHARGE PATIENT 1 09/07/2023 documented in this encounter Additional Health Concerns Infection Onset Date Last Indicated Resolved Time MRSA Comment:Wound from arm - 09/03/2023, 09/04/2023 09/03/2023 03/05/2024 documented as of this encounter Care Teams Discovery Guide Relationship Specialty Start Date End Date No, Physician PCP - General 01/31/21 Rashaun Benavidez MD [address] [facility] [id number] [place] [id number] Consulting Physician Cardiology 07/08/22 Miscellaneous, Not In File 07/08/22 documented as of this encounter
--- OUTSIDE RECORDS SUMMARY | 2024-03-13 02:22 | XMS_ITS | Encounter Summary ---
Author Organization [facility] Healthcare Address [address] [place] [address] Care Team Providers Care Wafer Cleaner Name Role Phone No, Physician Primary Care Provider [phone] Rashaun Benavidez MD Unavailable [phone] Miscellaneous, Not In File Unavailable Unava ilable Reason for Visit * Reason Comments Chest Pain My heart has been a cting up and been short of breath. Encounter Details Date Type Department Care Team (Late st Contact Info) Description 10/05/2023 11:31 PM CDT - 10/05/2023 11:33 PM CDT Emergency [facility] Emergency Department [address] [place] [address] Discharge Disposition: Left without being seen Social History Tobacco Use Types Packs/Day Years Used Date Smoking Tobacco: Never Smokeless Tobacco: Never Alcohol Use Standard Drinks/Week Comments Not Currently 0 (1 standard drink = 0.6 oz pur e alcohol) [facility] Utilities Answer Date Recorded In the past 12 months has [facility], gas, oil, or water [employer] threatened to shut off services in your home? No 09/05/2023 Social Connection and Isolation Panel [NHANES] A nswer Date Recorded In a typical week, how many times do you talk on the phone with family, friends, or neighbors? Once a week 09/05/2023 How often do you get together with friends or re latives? Once a week 09/05/2023 How often do you attend amish or jehovah's witness serv ices? 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 Gender Identity Not on file Sexual Orientation [...] CDT Inhaled Oxygen Concentration - - Weight - - Height - - Body Mass Index - - documented in this encounter Medications at Time [...] as needed for pain 20 tablet 09/07/2023 documented as of this encounter Discharge Disposition Disposition Code Departure Means Destination Comment s Left without being seen documented in this encounter Plan of Treatment Not on file documented as of this encounter Procedures Procedure Name Priority Date/Time Associated Diagnosis Comments ECG 12-LEAD STAT 10/05/2023 7:14 PM CDT documented in this encounter Results * ECG 12 lead (10/05/2023 7:14 PM CDT) 10/05/2023 7:[address] [facility] - 10/06/2023 7:25 AM CDT Vent Rate: 91 bpm RR Interval: 657 msec PA Interval: 153 msec QRS Duration: 98 msec QT Interval: 352 msec QTC Interval: 401 msec P-R-T [place]: 12 - 7 - 74 degrees IMPRESSION: SINUS RHYTHM NONSPECIFIC T-WAVE ABNORMALITY BORDERLINE ECG INTERPRETATION BASED ON A DEFAULT AGE OF 40 YEARS Electronically Signed By: Dr. Romelia Kruse [facility] us Shawn Joseph DO ECG ORDERABLES Final Result [facility] documented in this encounter Visit Diagnoses Not on filedocumented in this encounter Additional Health Concerns Infection Onset Date Last Indicated Resolved Time MRSA Comment:Wound from arm - 09/03/2023, 09/04/2023 09/03/2023 03/05/2024 documented as of this encounter Care Teams Wafer Cleaner Relationship Specialty Start Date End Date No, Physician PCP - General 01/31/21 Rashaun Benavidez MD [address] [place] [address] Consulting Physician Cardiology 07/08/22 Miscellaneous, Not In File 07/08/22 documented as of this encounter
--- OUTSIDE RECORDS SUMMARY | 2024-03-13 02:22 | XMS_ITS | Encounter Summary ---
Author Organization [facility] Healthcare Address [address] [place] [address] Care Team Providers Care Metal Spinner Name Role Phone No, Physician Primary Care Provider [phone] Rashaun Benavidez MD Unavailable [phone] Miscellaneous, Not In File Unavailable Unava ilable Encounter Details Date Type Department Care Team (Late st Contact Info) Description 10/13/2023 10:00 AM CDT Office Visit [facility] [address] [place] [id number] Skin ulcer of upper arm, with fat layer exposed (HCC) Social History Tobacco Use Types Packs/Day Years Used Date Smoking Tobacco: Never Smokeless Tobacco: Never Alcohol Use Standard Drinks/Week Comments Not Currently 0 (1 standard drink = 0.6 oz pur e alcohol) [facility] Utilities Answer Date Recorded In the past 12 months has [employer], gas, oil, or water company threatened [...] How often do you attend caodaism or scientology serv ices? Never 09/05/2023 Do you belong [...] place to sleep or slept in a group home (including now)? No 08/06/2022 Housing Stability Vital Sign Answer Calvin e Recorded In the last 12 months, was t here a time when you were not able to pay the mortgage or rent on time? No 09/05/2023 In the past 12 months, how m any times have you moved where you were living? 1 09/05/2023 At any time in the past 12 m [facility], were you homeless or living in a group home (including now)? No 09/05/2023 Personal Safety Answer Date Recorded Have you ever been in or are you currently in a harmful physical or emotional relationship or is someone making you feel afraid or unsafe? 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 Moderate Gram Positive [place]ci Comment:Testing performed by : [facility], [address] [place]., [address] Report Final Report: Moderate Mixed microorganisms. Includes the following: Few Pseudomonas aeruginosa (.) [facility] ([place]) Comment:Testing performed by : [facility], [address] [place]., [address] Organism PSEUDOMONAS AERUGINOSA [facility] ([place]) Organism MIXED MICROORGANISMS. [facility] ([place]) Tissue (Arm, right) 10/13/2023 11:30 AM CDT 10/13/2023 7:41 PM CDT Narrative [facility] ([place]) - 10/17/2023 3:09 PM CDT Testing performed by [facility] Laboratory ([phone]) Specimens submitted from normally sterile body sites [...] revised on 2019. Organism Antibiotic Method Susceptibility Pseudomonas aeruginosa Aztreonam INTERPRETATION Susceptible Pseudomonas aeruginosa Ceftazidime INTERPRETATION Susceptible Pseudomonas aeruginosa Ciprofloxacin INTERPRETATION Susceptible Pseudomonas aeruginosa Cefepime INTERPRETATION Susceptible Pseudomonas aeruginosa Imipenem INTERPRETATION Susceptible Pseudomonas aeruginosa Meropenem INTERPRETATION Susceptible Pseudomonas aeruginosa Piperacillin/Tazobactam INTERPR ETATION Susceptible Pseudomonas aeruginosa Tobramycin INTERPRETATION Susceptible us Anette Apple MD LAB MICROBIOLOGY - GENERAL O RDERABLES Final Result [facility] ([place]) 1 [facility] Department [place] [address] documented in this encounter Visit Diagnoses Diagnosis Skin ulcer of upper arm, with fat layer exposed (HCC) documented in this encounter Additional Health Concerns Infection Onset Date Last Indicated Resolved Time MRSA Comment:Wound from arm - 09/03/2023, 09/04/2023 09/03/2023 03/05/2024 documented as of this encounter Care Teams Metal Spinner Relationship Specialty Start Date End Date No, Physician PCP - General 01/31/21 Rashaun Benavidez MD [address] [place] [id number] Consulting Physician Cardiology 07/08/22 Miscellaneous, Not In File 07/08/22 documented as of this encounter
--- OUTSIDE RECORDS SUMMARY | 2024-03-13 02:22 | XMS_ITS | Encounter Summary ---
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 Name Role Phone No, Physician Primary Care Provider [phone] Rashaun Benavidez MD Unavailable [phone] Miscellaneous, Not In File Unavailable Unava ilable Reason for Visit * Reason Comments Dizziness Rapid Heart Rate * Auth/Cert (Routine) Specialty Diagnoses / Procedures Referred By Contac t Referred To Contact Diagnoses Lightheadedness T wave inversion in EKG Procedures na Referral ID Status Reason Start Date Expiration Date Visits Re quested Visits Authorized [id number] 1 1 Encounter Details Date Type Department Care Team (Latest Contact Info) Description 08/04/2022 12:59 PM CDT - 08/06/2022 6:30 PM CDT [place] [address] [place] [address] [facility] [address] [place] [address] [place] [id number] [place] [address] [place] [address] [id number] [place] [phone] T wave inversion in EKG (Primary Dx); Lightheadedness Discharge Disposition: Discharge to home or self [...] 08/06/2022 How often do you attend chur or yarsanism services? Never 08/06/2022 Do you belong to any clubs o r organizations such as hinduism groups, unions, fraternal or athletic groups, or [...] place to sleep or slept in a fpc (including now)? No 08/06/2022 Personal Safety Answer Date Recorded Have you ever been in or are you currently in a harmful physical or emotional relationship or is someone making you feel afraid or unsafe? 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 Gender Identity Not on file Sexual Orientation Not on file documented as of this encounter Last Filed Vital Signs Vital Sign Reading Time Taken Comments Blood Pressure 128/78 08/06/2022 11:00 AM CDT Pulse 73 08/06/2022 11:00 AM CDT Temperature 37 ??C (98.6 ??F) 08/06/2022 11:00 AM CDT Respiratory Rate 18 08/06/2022 11:00 AM CDT Oxygen Saturation 96% 08/06/2022 11:00 AM CDT Inhaled Oxygen Concentration - - Weight 74.1 kg (163 lb 6.4 oz) 08/05/2022 2:00 A M CDT Height 165.1 cm (5' 5 ) 08/05/2022 2:00 AM CDT Body Mass Index 27.19 08/05/2022 2:00 AM CDT documented in this encounter Discharge Summaries * Antonio Akins DO - 08/06/2022 3:57 PM CDT Inpatient Discharge Summary Patient Name - Margy Saldana Patient Age - 41 yrs Patient - [id number] [facility] - [id number] Document Creation Date: 08/06/2022 Admitting Provider, : Michael Piedra DO Discharge Provider, : Antonio Akins DO Primary Care Physician at Discharge: Sadaf, Physician [phone] Admission Date: 08/04/2022 Discharge Date/time: 08/06/2022 Admission Location: [facility] LOS - LOS: 2 days DETAILS OF HOSPITAL STAY Hospital Problems/Diagnoses Principal Problem: T wave inversion in EKG Active Problems: Ventricular tachycardia (HCC) Opioid abuse (HCC) HFrEF (heart failure with reduced ejection fraction) ([facility]/HCC) (HCC) Reason for Hospitalization: Patient is a 41 year old female with a PMH of HTN, torsades de point, substance abuse with opioids, and Takotsubo cardiomyopathy with EF of 28% presented to the ED on 08/04/22 with a chief complaint of chest pain and weakness. She reports some dizziness and a rapid heart rate.She has had chest pain for about 6 weeks. Her heart rate upon presentation to the ER is 62 BPM.Initial ECG shows NSR with new T wave inversion in V3-5. No other changes when compared to ECG doneon 07/20/22. Her urine drug screen is positive for fentanyl. Other labs are unremarkable. Patient was having a lot of anxiety and has tried Lexapro in the past but has never been on it more than a couple of weeks. She was admitted 07/08/22 with chest pain and palpitations after using some fentanyl which was likely laced with some other drug. She went into polymorphic V T. She was treated with amiodarone, lidocaine and magnesium. 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 The angiogram showed clean coronary arteries. An ECHO was done which revealed the depressed EF of 28%. She was diagnosed with Takotsubo cardiomyopathy. She was then discharged home on 07/08/22 with a life vest, Metoprolol, Losartan, and Librium. She then presented to the ER with chest pain and palpitations on 07/19/22. She denied drug use at that time but her UDS was positive for fentanyl. The rest of her workup was negative and she was discharged home. Repeat ekg negative. Patient EF improved to 56%, lifevest removed. Had some episodes of bradycardia. Cardiology and EP consulted. Decided to remove metoprolol and losartan since her EF has improved. Recommend drug cessation. Patient states uses drugs for calming down her anxiety. Started her on hydr oxyzine and Lexapro. Needs to follow-up with psychiatry as an outpatient. Resources given. She states she is in process of getting a pcp Discharge Details Physical Exam at Discharge: Discharge Condition: stable Pulse: 73 Resp: 18 BP: 128/78 Temp: 37 ??C (98.6 ??F) Weight: 74.1 kg (163 lb 6.4 oz) Pertinent Exam Findings at Discharge: No new physical exam findings at time of discharge Discharge Disposition: Discharge to home or self care Code Status at Discharge: Full Code Allergies: Sumatriptan, Sulfa (sulfonamide antibiotics), and Amoxicillin Discharge Medications: Your medication list START taking these medications Instructions Last Dose Given Next Dose Due escitalopram 20 mg tablet Commonly known as: LEXAPRO 20 mg, oral, Nightly hydrOXYzine 25 mg tablet Commonly known as: ATARAX 25 mg, oral, 4 times daily PRN STOP taking these medications chlordiazePOXIDE 25 mg capsule Commonly known as: LIBRIUM losartan 25 mg tablet Commonly known as: COZAAR metoprolol XL 25 mg extended release tablet Commonly known as: TOPROL-XL Where to Get Your Medications These medications were sent to [facility] [address] [id number] escitalopram 20 mg tablet hydrOXYzine 25 mg tablet Time Spent in Discharge Process: I have spent 35 minutes on discharge planning activities. Time spent was on Coordination of care, Follow up , Counselling with patient/family, discharge exam, and parent/patient education Test Results Pending at Discharge (If Blank, None Found): Operative Procedures Performed (If Blank, None Found): Outpatient Follow-Up: Future Appointments Date Time Provider Department Center 08/19/2022 1:30 PM Ronny Barrientos MD [facility] Specialty 10/19/2022 9:00 AM Rashaun Benavidez MD [facility] Specialty Please schedule an appointment with the following provider(s): No follow-up provider specified. ANCILLARY INFORMATION Other Procedures & Diagnostic Tests: Transthoracic Echo (TTE) Limited/Followup Result Date: 08/05/2022 [facility] [id number] [place] [id number] Limited Echocardiogram Report Patient Name: MARGY SALDNAA N : 1980 Study Date:08/05/2022 12:14:16 PM Gender: F Tech: Location: [id number] Ref Provider: Robert HERNANDEZ(Cm): 165 BSA: 1.84 Weight(Kg): 74 Heart Rate: 62 BP: 104/53 Quality: Good Order Provider: RENALDO HERNANDEZ PROCEDURES: Echocardiographic Report: Limited transthoracic echocardiogram with 2D and color Doppler. INDICATIONS: Evaluate EF. Measurements: 2D/M Mode Measurement Value Normal Range LVIDd 2D 4.32 [ 3.90 - 5.30 ] cm LVIDs 2D 2.73 [ 2.30 - 3.90 ] cm LVPWd 2D 1.11 [ 0.60 - 1.00 ] cm IVSd 2D 1.39 [ 0.60 - 0.90 ] cm Measurement Value Normal Range 2D/M Mode FINDINGS: Left Ventricle: Normal left ventricular systolic function with no focal wall motion abnormalities. Normal left ventricular size. Mild concentric left ventricular hypertrophy. Ejection fraction is measured at 56 %. Perica rdium: Normal pericardium with no significant pericardial effusion. CONCLUSIONS: Normal left ventricular systolic function with no focal wall motion abnormalities. Normal left ventricular size. Mild concentric left ventricular hypertrophy. Ejection fraction is measured at 56 %. Electronically Signed By: Stefany Winkler DO, FACC, JAZMIN VIZCARRA 2022-08-05 13:23:40 CDT CC: CC: CC: ECG 12 lead Result Date: 08/04/2022 Vent Rate: 58 bpm RR Interval: 1027 msec VT Interval: 163 msec QRS Duration: 108 msec QT Interval: 457 msec QTC Interval: 454 msec P-R-T [place]: 5 - 4 - 94 degrees SINUS BRADYCARDIA MARKED T-WAVE ABNORMALITY, CONSIDER ANTEROLATERAL ISCHEMIA [- 0.5+ mV T-WAVE IN I/aVL/V3-V6] ABNORMAL ECG Compared to July 19, 2022, T-wave inversion appears to be deeper in leads V1, V2, new T inversion in leads V3 to V 5 Electronically Signed By: Dr. Romelia Kruse [facility] XR Chest 1 Vw Portable Result Date: 08/04/2022 EXAMINATION: XR CHEST 1 VIEW HISTORY: The patient is a 41-year-old female who presents with chest pain. Comparison made with the previous study dated 07/19/2022. TECHNIQUE: AP portable view of the chest. FINDINGS: Lungs clear. Cardiovascular structures unremarkable. No active disease. Electronically signed by: Cuauhtemoc Leo M.D. Recent Labs: Recent Labs Lab Units 08/04/22 1403 WBC K/cumm 6.8 HEMOGLOBIN g/dL 11.3* HEMATOCRIT % 35.2* PLATELETS K/cumm 264 Recent Labs Lab Units 08/04/22 1403 WBC K/cumm 6.8 HEMOGLOBIN g/dL 11.3* HEMATOCRIT % 35.2* PLATELETS K/cumm 264 NEUTROS PCT % 75.0 LYMPHS PCT % 17.6 MONOS PCT % 5.6 EOS PCT % 1.2 Recent Labs Lab Units 08/04/22 1403 SODIUM mmol/L 139 POTASSIUM PLASMA mmol/L 4.0 CHLORIDE mmol/L 105 CO2 mmol/L 23 BUN SERUM mg/dL 15 CREATININE mg/dL 0.93 [id number] mL/min/1.73 m2 79 GLUCOSE mg/dL 115 CALCIUM mg/dL 9.4 ALBUMIN g/dL 4.1 Recent Labs Lab Units 08/04/22 1403 SODIUM mmol/L 139 POTASSIUM PLASMA mmol/L 4.0 CHLORIDE mmol/L 105 CO2 mmol/L 23 ANIONGAP mmol/L 11 GLUCOSE mg/dL 115 BUN SERUM mg/dL 15 CREATININE mg/dL 0.93 CALCIUM mg/dL 9.4 ALBUMIN g/dL 4.1 ALK PHOS Units/L 76 ALT Units/L 8 AST Units/L 16 BILIRUBIN TOTAL mg/dL 0.3 Recent Labs Lab Units 08/04/22 1403 ALK PHOS Units/L 76 BILIRUBIN TOTAL mg/dL 0.3 TOTAL PROTEIN g/dL 7.0 ALT Units/L 8 AST Units/L 16 Recent Labs Lab Units 08/04/22 1403 MAGNESIUM mg/dL 2.0 Lab Results Component Value Date GLUCOSE 115 08/04/2022 GLUCOSE 124 07/19/2022 GLUCOSE 143 07/08/2022 Implant: Implants No active implants to display in this view. General Precautions (If Blank, None Found): Isolation Status: No active isolations Nutritional Status and in-house recommendations: Dietary Orders (From admission, onward) Start Ordered 08/04/222038 Adult Diet Restricted; Low Fat, Low Chol, Low Na, 4 GM Sodium Diet effective now Question Answer Comment (CH) Diet type Restricted Fat / Sodium Restriction: Low Fat, Low Chol, Low Na Fat / Sodium Restriction: 4 GM Sodium 08/04/222038 Anticoagulation Indication: INR: No results found for requested labs within last 30 days. Warfarin Administrations (last 168 hours) None Oxygen Status: O2 Therapy for the past 12 hrs: O2 Therapy 08/06/22 0830 None (Room air) 08/06/22 0439 None (Room air) Wound Care Instructions Other Instructions Call provider for: Temperature -Temperature greater than 101 degrees F Call provider for: difficulty breathing or chest pain Call provider for: extreme fatigue Call provider for: hives Call provider for: persistent dizziness or light-headedness Call provider for: persistent nausea or vomiting Call provider for: redness, tenderness, or signs of infection (pain, swelling, redness, odor or green/yellow discharge around incision site) Call provider for: severe uncontrolled pain Call provider for: headache, visual disturbances, weakness and speech changes Active LDAs (If Blank, None Found): Peripheral IV 08/04/22 20 G Left Forearm (Active) Placement Date/Time: 08/04/22 1359 Type: Angiocath Size (Gauge): 20 G Location Orientation: Left Location: Forearm Site Prep: Chlorhexidine Technique: Guidewire with Ultrasound Guidance Inserted by: ZANE Rodrigues Insertion attempts: 1 Peripheral IV 08/04/22 18 G Anterior;Left External Jugular (Active) Placement Date/Time: 08/04/22 1656 Type: Angiocath Size (Gauge): 18 G Location Orientation: Anterior;Left Location: External Jugular Site Prep: Chlorhexidine Technique: Anatomical landmarks Patient Emergency Contact: Primary Emergency Contact: tila cuevas Immunization Status at Discharge There is no immunization history for the selected administration types on file for this patient. Antonio Akins DO documented in this encounter Discharge Instructions * Discharge Instructions* Josee Calixto MSW - 08/05/2022 4:47 PM CDT MENTAL HEALTH CRISIS/URGENT CARE SERVICES National Suicide Prevention Hotline (Available by calling or texting 858 to speak with a counselor for support or additional resources) Behavioral Health Response [phone] or [phone] (Crisis hotline or additional resources) [facility] Behavioral Health [phone] (Crisis hotline) [facility] Behavioral Health Urgent Care [phone] (walk in urgent care for mental health) Tuesday - Tuesday MOBILE OUTREACH SERVICES TO ASSIST IN LOCATING OUTPATIENT CARE FOR MENTAL HEALTH Behavioral Health Response [phone] (Contact and request a mobile outreach to establish community mental health care for [facility] and [facility]) Disaster Hotline (Contact to request assistance in establishing community mental health care in [facility]) COMMUNITY MENT[facility] CENTERS FOR UNINSURED OR MEDICAID [facility] Behavioral Health [phone] ([facility], [facility], [facility], [facility], and [facility]) [place] [phone] ([facility]) [facility] [phone] ([facility]) [place] ([facility]) [facility] [phone] ([facility]) [place] [phone] ([facility] [facility] SUBSTANCE USE TREATMENT [facility] [phone] (opioid response project for [place] residents) [facility] (drug and alcohol treatment) [facility] [phone] (inpatient and outpatient rehabilitation services) [place] ([place] option for treatment) [facility] ([place] option for treatment) [facility] Off- [phone]- ([place] option for assistance in locating treatment) .[facility] documented in this encounter Medications at Time of Discharge escitalopram (LEXAPRO) 20 mg tabletIndications :Anxiety with Depression Take 1 tablet (20 mg total) by mouth nightly 30 tablet 08/06/2022 09/07/2023 hydrOXYzine (ATARAX) 25 mg tabletIndications :anxiety Take 1 tablet (25 mg total) by mouth 4 (four) times a day as needed for anxiety 120 tablet 08/06/2022 09/07/2023 documented as of this encounter Ordered Prescriptions Prescription Sig Dispense Quantity Refills Last Filled Start Date End Date escitalopram (LEXAPRO) 20 mg tabletIndications: Anxiety with Depression Take 1 tablet (20 mg total) by mouth nightly 30 tablet 08/06/2022 hydrOXYzine (ATARAX) 25 mg tabletIndications: anxiety Take 1 tablet (25 mg total) by mouth 4 (four) times a day as needed for anxiety 120 tablet 08/06/2022 4 documented in this encounter Discharge Disposition Disposition Code Departure Means Destination Comment s Discharge to home or self care Car documented in this encounter Progress Notes * Kathia Walters LCSW - 08/06/2022 3:30 PM CDT [facility] received message from Dr. Akins that patient wants to discharge at this time. Asked for outpatient mental health resources. [facility] provided outpatient mental health resources in [facility]. Dr. Mable DO was notified that [facility] will cancel psychiatry consult at this time. Kathia Walters LCSW Behavioral Health HP * Renaldo Hernandez NP - 08/06/2022 1:25 PM CDT CARDIOLOGY PROGRESS NOTE 08/06/2022 CHIEF COMPLAINT Dizziness INTERVAL HISTORY Patient was requested to be seen in consultation by Austyn Fitzgerald MD for new T-wave inversion. Margy Saldana is a 41 y.o. female with past medical history of nonischemic cardiomyopathy EF 28%,history of polymorphic VT, hypertension, history of fentanyl abuse. We saw the patient when she washospitalized in 06/2022. She initially presented to [facility] with chest pain and palpitations after taking a fentanyl pill. She was found to be in polymorphic VT. She underwent cardiac catheterization which demonstrated normal coronary arteries, possible takotsubo cardiomyopathy. She had recurrent VT and received approximately 8 shocks on 06/30 and was transferred to [facility] on 07/01. 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 She was discharged home on 07/08/2022 with LifeVest and on metoprolol succinate 25 mg p.o. daily and losartan 12.5 mg p.o. b.i.d.. She presented to the emergency roomat [facility] on 08/04/2022 with complaints of dizziness and lightheadedness. 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 She denies any palpitations or shortness of breath. She does admit to chest pain which she states has been present since her last hospitalization that is worse with palpation and deep inspiration. Blood pressure on presentation was 134/75, heart rate 62. Troponins negative x3. UDS positive forfentanyl and patient admits to having used fentanyl several times since her last hospitalization but states her last use was approximately 1 week ago. 08/06-patient is sitting up in a chair. States she is feeling much better. Denies any further dizziness or lightheadedness. Sinus rhythm on telemetry with heart rates in the 60s at present. Sinus bradycardia noted overnight during sleeping hours. HOSPITAL MEDICATIONS Allergies Allergen Reactions ??? Sumatriptan Anaphylaxis Reaction: ANAPHYLAXIS ??? Sulfa (Sulfonamide Antibiotics) Rash ??? Amoxicillin Rash Reaction: RASH Scheduled Meds:escitalopram, 20 mg, oral, Nightly [Held by Provider] losartan, 12.5 mg, oral, Daily sodium chloride 0.9%, 0.5-20 mL, intra-catheter, Q8H KENT[place] Continuous Infusions: PRN Meds:.??? sodium chloride 0.9% ??? docusate sodium ??? hydrocortisone ??? hydrOXYzine ??? ondansetron ODT OR ondansetron ??? sodium chloride 0.9% REVIEW OF SYSTEMS ROS No further dizziness or lightheadedness. No chest pain. No palpitations. No shortness of breath. Noedema. No nausea or vomiting. No abdominal pain. LABS AND OTHER DIAGNOSTIC TESTS Lab Results Component Value Date WBC 6.8 08/04/2022 HGB 11.3 (L) 08/04/2022 HCT 35.2 (L) 08/04/2022 MCV 86.9 08/04/2022 Recent Labs Lab Units 08/04/22 1403 CO2 mmol/L 23 CREATININE mg/dL 0.93 CALCIUM mg/dL 9.4 TOTAL PROTEIN g/dL 7.0 BILIRUBIN TOTAL mg/dL 0.3 ALK PHOS Units/L 76 ALT Units/L 8 AST Units/L 16 GLUCOSE mg/dL 115 No results found for: CHOL No results found for: HDL No results found for: LDLCALC No results found for: TRIG PHYSICAL EXAM Vitals: BP 128/78 (BP Location: Right arm, Patient Position: Sitting) Pulse 73 Temp 37 ??C (98.6 ??F) (Oral) Resp 18 Ht 165.1 cm (5' 5 ) Wt 74.1 kg (163 lb 6.4 oz) SpO2 96% BMI 27.19 kg/m?? Physical Exam Vitals reviewed. Constitutional: Appearance: She is well-developed. HENT: Head: Normocephalic and atraumatic. Nose: Nose normal. Mouth/Throat: Pharynx: Oropharynx is clear. Eyes: Conjunctiva/sclera: Conjunctivae normal. Cardiovascular: Rate and Rhythm: Normal rate and regular rhythm. Pulmonary: Effort: Pulmonary effort is normal. Breath sounds: Normal breath sounds. Abdominal: General: There is no distension. Palpations: Abdomen is soft. Musculoskeletal: Right lower leg: No edema. Left lower leg: No edema. Skin: General: Skin is warm and dry. Neurological: Mental Status: She is alert. Comments: Awake and alert Psychiatric: Comments: Awake and alert ASSESSMENT -dizziness -intermittent sinus bradycardia -hypotension -history of nonischemic cardiomyopathy EF 28% -history of polymorphic VT -history of hypertension -fentanyl abuse -anxiety/depression PLAN/RECOMMENDATIONS -dizziness: Patient denies any further dizziness or lightheadedness. Orthostatics noted to be negative. -intermittent sinus bradycardia: Intermittent sinus bradycardia noted overnight during sleeping hours. Patient denies any further dizziness or lightheadedness. Metoprolol has been discontinued per EP. -hypotension: Blood pressure remains on the lower side but patient denies any further dizziness or lightheadedness. Toprol-XL and losartan have been discontinued. Patient advised to continue to monitor her blood pressure at home and keep a log. She is stable for discharge from a cardiac standpoint.She will follow-up in the office with Dr. Barrientos on 08/19/2022. -history of nonischemic cardiomyopathy EF 28%: Echo this admission shows improvement in EF, now 56%. Toprol XL and losartan have been discontinued due to lower blood pressures. Advised that she may now discontinue her LifeVest. Will notify [facility] of discontinuation. -history of polymorphic VT: Patient had recurrent polymorphic VT in 06/2022. 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 Continue avoidance of QT prolonging medications. EP following. -history of hypertension: Blood pressure now on the lower side. Toprol-XL and losartan have been discontinued. Patient advised to continue to monitor her blood pressure at home and keep a log. -fentanyl abuse: Patient admits to using fentanyl on several occasions since her last hospitalization. She was advised to not take methadone given concern for QT interval prolongation. -anxiety/depression: Recommend psych consult. Patient denies any further dizziness or lightheadedness. Echocardiogram this admission shows improvement in EF to 56%. Her Toprol-XL and losartan have been discontinued given presentation with dizziness and hypotension. Her LifeVest has also been discontinued. She is stable for discharge from a cardiac standpoint. She is advised to continue to monitor her blood pressure at home and keep a log. She will follow-up in the office with Dr. Barrientos on 08/19/2022. My total encounter time on 08/06/2022 was 13 minutes which was spent in the activities documented in the note. This includes time spent prior to the visit and after the visit in direct care of the patient. This time does not include time spent in any separately reportable services. Renaldo Hernandez NP Cosigned by Stefany Winkler DO at 08/06/2022 2:51 PM CDT Associated attestation - Stefany Winkler DO - 08/06/2022 2:51 PM CDT I personally performed a substantive portion of this patient encounter in conjunction with renaldo hernandez NP. My impression/plan is . -hypotension: Resolved with holding Toprol and losartan. Will continue to hold both of these medications. -intermittent sinus bradycardia: Bradycardia has resolved with discontinuation of Toprol. -dizziness: Her symptoms of dizziness has resolved with discontinuation of losartan and Toprol. -recent polymorphic ventricular tachycardia: She is not had any further episodes of ventricular tachycardia. We have reviewed tracings from her LifeVest, with no ventricular tachycardia. She also hasnormalization of her EF. Will plan to discontinue LifeVest. Discussed with EP. -recent takotsubo cardiomyopathy EF 28% with normalization of EF: Her EF has normalized. Will discontinue LifeVest. -hypertension: Will plan to hold losartan for now, as blood pressure is currently normal. Will follow-up in the office in 2 weeks. -fentanyl abuse: -anxiety/depression: Patient would like treatment for anxiety and depression. She would like to seepsychiatry. Behavior health consult was placed, however it looks as though they were under the impression was only a place for fentanyl use. I will place another consult, so that they can see her andaddress her anxiety/depression. I spent 25 minutes of non-overlapping time managing the patient independent of Renaldo hernandez NP today. * Snow Davidson - 08/06/2022 11:45 AM CDT Behavioral Health [facility] entered consult request into [facility] Portal at 1205. Reason for consult: Anxiety, Depression and medication recommendation. [facility] staff will be contacting [facility] at phone number: [phone]. Psychiatrist will use this number to start video assessment as well. Please have equipment charged and ready. Device ID given to [facility] is: [id number]. This consult is a/an inpatient urgent video consult which has a median time of EIGHT hours to be completed. [facility] will monitor consult timeframe and contact [facility] as necessary. For inpatient consults, [facility] should not call after 2300 to start a consult and patient will be seen the next morning. For Emergency Department consults, [facility] sees the patient 18/10. Behavioral Health [facility] spoke/messaged with Dr. Akins at [facility] and updated them on status. Snow Davidson [facility] * Leeanna Day - 08/06/2022 9:12 AM CDT Behavioral Health Intervention Services (BHI) Navigator Note Navigator-Aware of consult. [facility] will be assigned when available. Leeanna Day Behavioral Health Navigator * Antonio Akins - 08/05/2022 3:32 PM CDT Daily Progress Margy Saldana Admit Date: 08/04/2022 12:59 PM Today's Date: 08/05/2022 Hospital Day: 2 SUBJECTIVE Chief Complaint: Chest pain Brief Hospital Course: Patient is a 41 year old female with a PMH of HTN, torsades de point, substance abuse with opioids, and Takotsubo cardiomyopathy with EF of 28% presented to the ED on 08/04/22 with a chief complaint of chest pain and weakness. She reports some dizziness and a rapid heart rate.She has had chest pain for about 6 weeks. Her heart rate upon presentation to the ER is 62 BPM. Initial ECG shows NSR with new T wave inversion in V3-5. No other changes when compared to ECG done on 07/20/22. Her urine drug screen is positive for fentanyl. Other labs are unremarkable. Patient was having a lot of anxiety and has tried Lexapro in the past but has never been on it more than a couple of weeks. She was admitted 07/08/22 with chest pain and palpitations after using some fentanyl which was likely laced with some other drug. She went into polymorphic V T. She was treated with amiodarone, lidocaine and magnesium. 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 The angiogram showed clean coronary arteries. An ECHO was done which revealed the depressed EF of 28%. She was diagnosed with Takotsubo cardiomyopathy. She was then discharged home on 07/08/22 with a life vest, Metoprolol, Losartan, and Librium. She then presented to the ER with chest pain and palpitations on 07/19/22. She denied drug use at that time but her UDS was positive for fentanyl. The rest of her workup was negative and she was discharged home. Labs/Tests ECG on 08/04/22 shows NSR with new T wave inversion in V3-5. No other changes when compared to ECG done on 07/20/22. Troponin on 08/04/22 unremarkable CXR on 08/04/22 was negative Urine drug screen on 08/04/22 is positive for fentanyl Interval History: Pt seen and examined. Patient states feeling much better. Having some episodes ofbradycardia likely from beta-lane. Cardiology recommended EP evaluation given the fact that she is had torsade and ventricular tachycardia in the past we do not want to necessarily stop the beta-lane if can avoid it. ROS: Constitutional: Denies fevers, chills, sweats, fatique, weakness CV: Denies CP, edema, palpitations Resp: Denies SOB, cough, wheezes, HAMMOND GI: Denies abd pain, NVDC, positive BM escitalopram, 20 mg, oral, Daily [Held by Provider] losartan, 12.5 mg, oral, Daily [Held by Provider] metoprolol XL, 25 mg, oral, Daily sodium chloride 0.9%, 0.5-20 mL, intra-catheter, Q8H KENTRELL sodium chloride 0.9%, 30 mL docusate sodium, 100 mg hydrocortisone, hydrOXYzine, 25 mg, 25 mg at 08/05/22 1410 ondansetron ODT, 4 mg OR ondansetron, 4 mg sodium chloride 0.9%, 0.5-20 mL OBJECTIVE Vitals: Most Recent : Vitals: 08/05/22 0200 08/05/22 0350 08/05/22 0545 08/05/22 0841 BP: 127/78 104/53 BP Location: Right arm Right arm Patient Position: Sitting Pulse: 58 71 52 72 Resp: 18 19 Temp: 36.8 ??C (98.3 ??F) 36.7 ??C (98.1 ??F) TempSrc: Oral Oral SpO2: 96% 94% Weight: 74.1 kg (163 lb 6.4 oz) Height: 165.1 cm (5' 5 ) 24hr Min/Max: Temp Min: 36.7 ??C (98.1 ??F) Max: 36.8 ??C (98.3 ??F) Pulse Min: 47 Max: 74 BP Min: 102/67 Max: 152/89 Resp Min: 11 Max: 19 SpO2 Min: 94 % Max: 100 % Intake/Output Summary (Last 24 hours) at 08/05/2022 1532 Last data filed at 08/05/2022 1336 Gross per 24 hour Intake 449 ml Output -- Net 449 ml LDA: Peripheral IV 08/04/22 20 G Left Forearm (Active) Placement Date/Time: 08/04/22 1359 Type: Angiocath Size (Gauge): 20 G Location Orientation: Left Location: Forearm Site Prep: Chlorhexidine Technique: Guidewire with Ultrasound Guidance Inserted by: ZANE Rodrigues Insertion attempts: 1 Number of days: 1 Peripheral IV 08/04/22 18 G Anterior;Left External Jugular (Active) Placement Date/Time: 08/04/22 1656 Type: Angiocath Size (Gauge): 18 G Location Orientation: Anterior;Left Location: External Jugular Site Prep: Chlorhexidine Technique: Anatomical landmarks Number of days: 0 Physical Exam: Constitutional: Awake, NAD HEENT: Atraumatic, normocephalic, EOMI, ext ear canals atraumatic Cardio: RRR, S1/S2, no murmurs Lungs: CTABL, no wheezes, rhonchi or crackles Gi: abd soft, Nt, Nd, +BS Ext: no edema, no cyanosis, pulses intact Neuro: A&Ox3, no focal deficits Skin: warm and dry, no rashes, lesions or growths Psych: normal affect and mood, behavior normal Lab/Radiology/Diagnostic Review: I have personally reviewed all labs, diagnostic studies and films and unless otherwise noted I agree with the findings. Recent Results (from the past 24 hour(s)) Troponin T high-sensitivity 2-hour Collection Time: 08/04/22 4:43 PM Result Value Ref Range Trop T hs 8 <=14 ng/L Trop T hs delta -2 ng/L Trop T hs interp Insignificant Troponin T high-sensitivity 4-hour Collection Time: 08/04/22 6:05 PM Result Value Ref Range Trop T hs 7 <=14 ng/L Trop T hs delta -3 ng/L Trop T hs interp Insignificant Drugs of Abuse Screen, Urine without Confirmation Collection Time: 08/04/22 7:08 PM Result Value Ref Range Amphetamine, ur Not Detected CutOff 500ng/mL Barbiturates, ur Not Detected CutOff 200ng/mL Benzodiazepines, ur Not Detected CutOff 100ng/mL Cannabinoids, ur Not Detected CutOff 50 ng/mL Cocaine, ur Not Detected CutOff 150ng/mL Fentanyl, Ur Detected (A) Cutoff 1 ng/mL Methadone, ur Not Detected CutOff 300ng/mL Opiates, ur Not Detected CutOff 300ng/mL Oxycodone, ur Not Detected CutOff 100ng/mL Phencyclidine, ur Not Detected CutOff 25 ng/mL Urine Creatinine 83 mg/dL Transthoracic Echo (TTE) Limited/Followup Result Date: 08/05/2022 Narrative: [place] [address] Limited Echocardiogram Report Patient Name: MARGY SALDANA N : 1980 Study Date: 08/05/2022 12:14:16 PM Gender: F Tech: Location: [place] [address] Ref Provider: RENALDO HERNANDEZHeight(Cm): 165 BSA: 1.84 Weight(Kg): 74 Heart Rate: 62 BP: 104/53 Quality: Good Order Provider: RENALDO HERNANDEZ PROCEDURES: Echocardiographic Report: Limited transthoracic echocardiogram with 2D and color Doppler. INDICATIONS: Evaluate EF. Measurements: 2D/M Mode Measurement Value Normal Range LVIDd 2D 4.32 [ 3.90 - 5.30 ] cm LVIDs 2D 2.73 [ 2.30 - 3.90 ] cm LVPWd 2D 1.11 [ 0.60 - 1.00 ] cm IVSd 2D 1.39 [ 0.60 - 0.90 ] cm Measurement Value Normal Range 2D/M Mode FINDINGS: Left Ventricle: Normal left ventricular systolic function with no focal wall motion abnormalities. Normal left ventricular size. Mild concentric left ventricular hypertrophy. Ejection fraction is measured at56 %. Pericardium: Normal pericardium with no significant pericardial effusion. CONCLUSIONS: Normal left ventricular systolic function with no focal wall motion abnormalities. Normal left ventricularsize. Mild concentric left ventricular hypertrophy. Ejection fraction is measured at 56 %. Electronically Signed By: Stefany Winkler DO, CARMITA ORTIZ FASNC 2022-08-05 13:23:40 CDT CC: CC: CC: ECG 12 lead Result Date: 08/04/2022 Narrative: Vent Rate: 58 bpm RR Interval: 1027 msec VT Interval: 163 msec QRS Duration: 108 msec QTInterval: 457 msec QTC Interval: 454 msec P-R-T [place]: 5 - 4 - 94 degrees SINUS BRADYCARDIA MARKED T-WAVE ABNORMALITY, CONSIDER ANTEROLATERAL ISCHEMIA [-0.5+ mV T-WAVE IN I/aVL/V3-V6] ABNORMAL ECG Compared to July 19, 2022, T-wave inversion appears to be deeper in leads V1, V2, new T inversion in leads V3 to V5 Electronically Signed By: Dr. Romelia Kruse [facility] XR Chest 1 Vw Portable Result Date: 08/04/2022 Narrative: EXAMINATION: XR CHEST 1 VIEW HISTORY: The patient is a 41-year-old female who presents with chest pain. Comparison made with the previous study dated 07/19/2022. TECHNIQUE: AP portable view of the chest. FINDINGS: Lungs clear. Cardiovascular structures unremarkable. Impression: No active disease. Electronically signed by: Cuauhtemoc Leo M.D. CT Chest PE (CTA) W Contrast Result Date: 07/20/2022 Narrative: Examination: CTA chest with contrast, PE protocol. Order Date: 07/19/2022 10:30 PM History: Chest pain, PE suspected, high prob Technique: Transaxial computed tomographic images of the chest were obtained following administration of 75 mL Optiray 350 intravenous contrast according to pulmonary embolism protocol. Coronal and sagittal images were submitted by the technologist. 3-D rendering, MIP and 3-D reconstruction images were obtained Comparison: 02/29/2020 Findings: The heart size is normal. There is no pericardial effusion. There is no filling defect in the pulmonary arterial bra nches to suggest pulmonary embolism. There is no enlarged mediastinal or axillary lymphadenopathy. There is no pneumothorax or pleural effusion. There is no suspicious lung nodule or focal pulmonic consolidation. Osseous structures of the chest are intact. Impression: No acute findings No evidence for central pulmonary thrombus Results of the exam that given by V rad. Electronically signed by: Krystyna Escobar M.D. ECG 12 lead Result Date: 07/20/2022 Narrative: Vent Rate: 97 bpm RR Interval: 614 msec VT Interval: 167 msec QRS Duration: 97 msec QT Interval: 298 msec QTC Interval: 353 msec P-R-T [place]: 6 - 15 - 97 degrees SINUS RHYTHM NONSPECIFIC T-WAVE ABNORMALITY ABNORMAL ECG No change from prior EKG Electronically Signed By: Néstor Norris MD XR Chest 1 Vw Portable Result Date: 07/19/2022 Narrative: EXAMINATION: XR CHEST 1 VIEW HISTORY: The patient is a 41-year-old female who presents with shortness of breath. Comparison made with the previous study dated 01/14/2023. TECHNIQUE: AP portable view of the chest. FINDINGS: Lungs clear. Cardiovascular structures unremarkable. Impression: No active disease. Electronically signed by: Cuauhtemoc Leo M.D. CT Humerus Left W Contrast Result Date: 07/08/2022 Narrative: EXAMINATION: CT HUMERUS LEFT W CONTRAST DATE: 07/07/2022 7:55 PM HISTORY: Soft tissue infection suspected, upper arm, xray done TECHNIQUE: Images through the left upper arm were obtained following intravenous contrast administration. FINDINGS: The left humerus and other visualized osseous structures are normal. There is no fracture or abnormal bone production or destruction. There is significant subcutaneous fat stranding over the left shoulder and lateral upper arm. There is no abscess or abnormal fluid collection. The left subclavian, brachial and axillary arteries are grossly norm al. Impression: Left upper arm and shoulder cellulitis. No abscess. Electronically signed by: Chance Hidalgo M.D. ECG 12 lead Result Date: 07/08/2022 Narrative: Vent Rate: 78 bpm RR Interval: 765 msec VT Interval: 168 msec QRS Duration: 92 msec QT Interval: 410 msec QTC Interval: 443 msec P-R-T [place]: 28 - 10 - 29 degrees SINUS RHYTHM NONSPECIFIC T-WAVE ABNORMALITY BORDERLINE ECG INTERPRETATION BASED ON A DEFAULT AGE OF 40 YEARS Electronically Signed By: Dr. Romelia Kruse [facility] ECG 12 lead Result Date: 07/07/2022 Narrative: Vent Rate: 69 bpm RR Interval: 860 msec VT Interval: 154 msec QRS Duration: 95 msec QT Interval: 446 msec QTC Interval: 466 msec P-R-T [place]: 19 - 13 - -9 degrees SINUS RHYTHM NORMAL ECG Electronically Signed By: Dr. Romelia Kruse [facility] ASSESSMENT/PLAN Principal Problem: T wave inversion in EKG Active Problems: Ventricular tachycardia (HCC) Opioid abuse (HCC) HFrEF (heart failure with reduced ejection fraction) (CMS/HCC) (HCC) T-wave inversions have resolved. No active chest pain at this time EP consult to evaluate bradycardia in the setting of history of torsades Continue LifeVest care Continue home medications for her heart failure Full Code Disposition: Pending improvement MDM: Moderate Antonio Akins DO 08/05/22 * Leeanna Day - 08/05/2022 11:17 AM CDT Behavioral Health Intervention Services (BHI) Navigator Note Navigator-Aware of consult. HP will be assigned when available. Leeanna Day Behavioral Health Navigator documented in this encounter H&P Notes * Brother, Fred SierraMD Dhruv - 08/04/2022 7:54 PM CDT Primary Care Physician: Sadaf, Physician [phone] SUBJECTIVE HPI: Margy Saldana is a 41 y.o. female admitted to [facility] on 08/04/2022. Pt history obtained from review of medical records in [facility] and interview with patient. Pt with HTN, torsades de point,and Takotsubo cardiomyopathy with EF of 28%. She was admitted in early June with chest pain and palpitations after using some fentanyl which was likely laced with some other drug. She went into polymorphic V T. She was treated with amiodarone, lidocaine and magnesium. 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 The angiogram showed clean coronary arteries. An ECHO was done which revealed the depressed EF of 28%. She was diagnosed with Takotsubo cardiomyopathy. She was then discharged home on 07/08/22 with a life vest, Metoprolol, Losartan, and Librium. She then presented to the ER with chest pain and palpitations on 07/19/22. She denied drug use at that time but her UDS was positive for fentanyl. The rest of her workup was negative and she was discharged home. She presents again today withchest pain and weakness. She reports some dizziness and a rapid heart rate. The dizziness started about 48 hours ago. She has had chest pain for about 6 weeks. Her heart rate upon presentation to theER is 62 BPM. Initial ECG shows NSR with new T wave inversion in V3-5. No other changes when compared to ECG done on 07/20/22. Her urine drug screen is positive for fentanyl today. Other labs are unremarkable. Case was discussed with Dr. Rodrigues. Of note, pt is having a lot of anxiety especially in light of recent events. She has tried Lexapro in the past but has never been on it more than a couple of weeks so she is unsure if it was helpful. She did not experience side effects so is willing to try this medications again. Pt now admitted for further treatment and evaluation. This patient's past medical, surgical, social, allergic, and family history were reviewed at bedside and are available below. Past Medical History: Diagnosis Date Hypertension Ventricular [...] on file Frequency of Binge Drinking: Never No family history on file. (Not in a hospital admission) Allergies Allergen Reactions Sumatriptan Anaphylaxis Reaction: ANAPHYLAXIS Sulfa (Sulfonamide Antibiotics) Rash Amoxicillin Rash Reaction: RASH Review of Systems: All 14 systems were reviewed. All systems are negative except that described in the HPI. OBJECTIVE Vitals: Presenting: Arrival Vitals Temp 08/04/22 1253 36.4 ??C (97.5 ??F) Pulse 08/04/22 1253 62 Resp 08/04/22 1253 16 BP 08/04/22 1253 134/75 SpO2 08/04/22 1256 100 % Temp src 08/04/22 1253 Tympanic Heart Rate Source -- Patient Position -- BP Location -- FiO2 (%) -- Most Recent : Vitals: 08/04/22 1737 08/04/22 1835 08/04/22 1850 08/04/22 2035 BP: 104/72 107/76 152/89 146/82 Pulse: (!) 47 68 72 Resp: 15 13 14 Temp: TempSrc: SpO2: 96% 100% 98% Weight: Height: Physical Exam: Constitutional: Well-developed well-nourished female alert in no apparent distress HEENT: Normocephalic atraumatic. Eyes, ears, nose and throat all appear normal to inspection. Mucous membranes are pink and moist. Neck: Supple, trachea midline, no lymphadenopathy. Heart: Life vest in place, Regular rate and rhythm with normal S1 and S2. No peripheral edema. Pulses are 2+ bilaterally Lungs: Clear to auscultation bilaterally. No wheezes or crackles. No accessory muscle use noted. Nosigns of respiratory distress. Abdomen: Soft nontender nondistended with normoactive bowel sounds Extremities: Extremities appear normal without clubbing cyanosis or edema. Moves all extremities well. Neuro: Alert oriented x4. Normal speech. Normal nonfocal neuro exam. Lab/Radiology/Diagnostic Review: Recent Results (from the past 24 hour(s)) CBC with auto differential Collection Time: 08/04/22 2:03 PM Result Value Ref Range WBC 6.8 3.8 - 9.9 K/cumm Hgb 11.3 (L) 11.9 - 15.5 g/dL Hct 35.2 (L) 35.6 - 45.5 % Plt 264 150 - 400 K/cumm MPV 11.4 9.1 - 12.3 fL RBC 4.05 3.90 - 5.20 M/cumm MCV 86.9 81.3 - 96.4 fL MCH 27.9 27.1 - 33.3 pg MCHC 32.1 (L) 32.3 - 35.7 g/dL RDW CV 13.0 11.1 - 14.9 % RDW SD 41.0 35.7 - 48.1 fL NRBC abs 0.00 0.00 - 0.01 K/cumm Comprehensive metabolic panel Collection Time: 08/04/22 2:03 PM Result Value Ref Range Sodium 139 135 - 145 mmol/L Potassium, pl 4.0 3.3 - 4.9 mmol/L Chloride 105 97 - 110 mmol/L CO2 23 22 - 32 mmol/L Anion gap 11 2 - 15 mmol/L BUN 15 8 - 25 mg/dL Creatinine 0.93 0.60 - 1.10 mg/dL Glucose 115 70 - 199 mg/dL Calcium 9.4 8.5 - 10.3 mg/dL Bilirubin, total 0.3 0.1 - 1.2 mg/dL Protein, pl 7.0 6.5 - 8.5 g/dL Albumin 4.1 3.5 - 5.0 g/dL Alk phos 76 40 - 130 Units/L ALT 8 7 - 45 Units/L AST 16 10 - 45 Units/L Troponin T high-sensitivity series (baseline, 2hr, 4hr, 6hr) Collection Time: 08/04/22 2:03 PM Result Value Ref Range Trop T hs 10 <=14 ng/L Differential, auto Collection Time: 08/04/22 2:03 PM Result Value Ref Range Neutrophil abs 5.1 1.7 - 6.5 K/cumm Imm gran abs 0.0 0.0 - 0.1 K/cumm Lymphocyte abs 1.2 0.8 - 3.3 K/cumm Monocyte abs 0.4 0.2 - 0.8 K/cumm Eosinophil abs 0.1 0.0 - 0.5 K/cumm Basophil abs 0.0 0.0 - 0.1 K/cumm Neutrophil pct 75.0 % Imm gran pct 0.3 % Lymphocyte pct 17.6 % Monocyte pct 5.6 % Eosinophil pct 1.2 % Basophil pct 0.3 % eGFR Collection Time: 08/04/22 2:03 PM Result Value Ref Range eGFR 79 mL/min/1.73 m2 Magnesium Collection Time: 08/04/22 2:03 PM Result Value Ref Range Magnesium 2.0 1.4 - 2.5 mg/dL Troponin T high-sensitivity 2-hour Collection Time: 08/04/22 4:43 PM Result Value Ref Range Trop T hs 8 <=14 ng/L Trop T hs delta -2 ng/L Trop T hs interp Insignificant Troponin T high-sensitivity 4-hour Collection Time: 08/04/22 6:05 PM Result Value Ref Range Trop T hs 7 <=14 ng/L Trop T hs delta -3 ng/L Trop T hs interp Insignificant Drugs of Abuse Screen, Urine without Confirmation Collection Time: 08/04/22 7:08 PM Result Value Ref Range Amphetamine, ur Not Detected CutOff 500ng/mL Barbiturates, ur Not Detected CutOff 200ng/mL Benzodiazepines, ur Not Detected CutOff 100ng/mL Cannabinoids, ur Not Detected CutOff 50 ng/mL Cocaine, ur Not Detected CutOff 150ng/mL Fentanyl, Ur Detected (A) Cutoff 1 ng/mL Methadone, ur Not Detected CutOff 300ng/mL Opiates, ur Not Detected CutOff 300ng/mL Oxycodone, ur Not Detected CutOff 100ng/mL Phencyclidine, ur Not Detected CutOff 25 ng/mL Urine Creatinine 83 mg/dL Assessment & Plan: All diagnoses are present on admission unless otherwise indicated. Principal Problem: T wave inversion in EKG Active Problems: Ventricular tachycardia (HCC) Opioid abuse (HCC) HFrEF (heart failure with reduced ejection fraction) (CMS/HCC) (HCC) New ECG changes. No evidence of ischemia with normal troponin levels of 10, 8, and 7. Continue to monitor on telemetry. Cardiology consult. H/O polymorphic VT. No recurrence to date. Wearing life vest. MG and other labs are normal. Monitoron telemetry. Continue metoprolol. Chronic systolic CHF. No signs of fluid overload. Continue home meds with Losartan and metoprolol. Opioid abuse. Continues to be positive for fentanyl in urine drug screen. Counseled about complete discontinuation of drug use. environmental services assistant consulted. Uncontrolled anxiety. Starting Lexapro. May benefit from outpatient mental health evaluation and counseling. environmental services assistant consulted DVT Prophylaxis: Lovenox Code Status: Full Code Estimated Length of Stay: 1-2 Days Voice recognition software ([employer]) was used to complete this document. Despite proofreading, networks software consultant variances and typographical errors may occur. Fred Rodriguez MD 08/04/2022 9:18 PM documented in this encounter Consult Notes * Snow Davidson - 08/06/2022 2:40 PM CDTAssociated Order(s): CONSULT TO [facility]IORAL HEALTH [facility] Is [facility] consult complete? Other Behavioral Health Intervention Services (I) [facility] Consult Note Date: 08/06/22 Patient Name: Margy Saldana Medical Record: [id number] Date of : 1980 [facility] consult ordered by Stefany Winkler DO for requesting psychiatry consult for treatment of anxiety and depression . [facility] spoke/messaged with Dr. Akins who reports he would like psychiatry to contact him following the consultation. [facility] will notify Psychiatry. Per EMR, patient has not expressed any thoughts of harming self or others. C-SSRS risk upon admission was no risk. ADDITIONAL ASSESSMENTS: None Snow Davidson [facility] Telehealth Patient? No * Josee Calixto MSW - 08/05/2022 6:03 PM CDTAssociated Order(s): CONSULT TO [facility] Behavioral Health Services [facility] Substance Use Consult Is patient agreeable to complete consult? No Date: 08/05/22 Patient Name: Margy Saldana Preferred Name: Medical Record: [id number] Date of : 1980 [facility] Substance Use consult ordered by Dr. Akins for fentanyl use . Urine drug screen was positive for fentanyl . Patient declined to participate in assessments. Patient reported not interested in participating. Patient declined to accept resource information. Follow up recommendations including information on Recovery, treatment programs, and hotlines/support groups added to discharge instructions/AVS. ZANE De Los Santos.CSSR was low/no risk for suciide Additional Assessments: None Thank you for the opportunity to participate in this patient's care. ARIC Weber [facility] Telehealth Patient? No * Rashaun Benavidez MD - 08/05/2022 12:25 PM CDT Cardiology Consult Note - Electrophysiology Patient Name: Margy Saldana : 1980 Date of Service: 08/05/22 Requesting Attending: Antonio Akins* Reason for Consult: Other: New T-wave inversion Chief Complaint: chest pain, weakness, dizziness HPI Margy Saldana is a 41 y.o. female with a history of LQT induced PMVt/TdP, Takutsubo CM, Opioid use disorder presenting with above CC. Electrophysiology has been consulted for bradycardia. Patient was initially seen in June 2022 after presenting to [facility] with episodes of chest pain, palpitations or presyncope. 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 Coronary angiogram at that time showed no obstructive coronary disease. She still had repeated episodes of polymorphic ventricular tachycardia requiring external defibrillations. Patient transferred to [facility] for further management. She was weaned off lidocaine drip, and after a QTC had normalized, patient wasmaintained on metoprolol 25 mg XL. Due to takotsubo cardiomyopathy diagnosed during this admission,patient was discharged with a LifeVest. Patient presented to [facility] ER on 07/19. She states she had similar symptoms as to when she had TdP earlier in the month, where she had preceeding warmth pride over her and SOB. She states she beared down and held her breath and the symptoms would resolve. She states the LifeVest did not alarm during this period. She presented to the ED and found that her HR would fluctuate between 90s and 140s. UDS positive for fentanyl at this time(states she used 3-4 days prior to this presentation). Potassium slightly low at 3.4, magnesium slightly low at 1.9. No arrhythmias noted on monitoring and pt d/c'ed home. 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 She decided to go home and sleep, and states sheslept the whole day, however she still felt LH and dizzy at times on 08/04, prompting admission. Pt admitted for further evaluation, in setting of deep TWIs seen on EKG. This afternoon pt states she is feeling well without any warmth rushing over her, she has no dizziness or LH, no CP, SOB or palpitations currently. Pt noted to have SB this yesterday afternoon and this morning into the 40s, and notes her symptoms of LH did feel worse. Tele reviewed showing SB during sleeping hour and during morning time, currently in NSR. No VAs. Nohigh grade AVB Review of Systems: Review of systems as per HPI and, otherwise all other systems are negative. PMHX: has a past medical history of Hypertension and Ventricular dysfunction. PSHX: has a past surgical history that includes Hysterectomy. Family Hx: Reviewed and noncontibutory Social Hx: Social History Tobacco Use Smoking status: Never Smokeless tobacco: Never Substance and Sexual Activity Drug use: Not Currently Types: Amphetamines, Benzodiazepines, Fentanyl, Opioid Sexual activity: Defer Alcohol Use: Not At Risk (07/01/2022) AUDIT-C Frequency of Alcohol Consumption: Never Average Number of Drinks: Not on file Frequency of Binge Drinking: Never Allergies: Allergies Allergen Reactions Sumatriptan Anaphylaxis Reaction: ANAPHYLAXIS Sulfa (Sulfonamide Antibiotics) Rash Amoxicillin Rash Reaction: RASH Home Medications: HOME MEDICATIONS : chlordiazePOXIDE (LIBRIUM) 25 mg capsule losartan (COZAAR) 25 mg tablet metoprolol XL (TOPROL-XL) 25 mg extended release tablet Current Medications: escitalopram, 20 mg, oral, Daily [Held by Provider] losartan, 12.5 mg, oral, Daily [Held by Provider] metoprolol XL, 25 mg, oral, Daily sodium chloride 0.9%, 0.5-20 mL, intra-catheter, Q8H KENTRELL Objective Vital Signs: 24hr Min/Max: Temp Min: 36.4 ??C (97.5 ??F) Max: 36.8 ??C (98.3 ??F) Pulse Min: 44 Max: 74 BP Min: 99/56 Max: 152/89 Resp Min: 11 Max: 19 SpO2 Min: 93 % Max: 100 % Most Recent: Vitals: 08/05/22 0841 BP: 104/53 Pulse: 72 Resp: 19 Temp: 36.7 ??C (98.1 ??F) SpO2: 94% Intake/Output: Intake/Output Summary (Last 24 hours) at 08/05/2022 1225 Last data filed at 08/05/2022 1145 Gross per 24 hour Intake 444 ml Output -- Net 444 ml Physical Exam: General appearance: no acute distress HENT:NCAT, MMM, Eyes: Anicteric Lungs: CTAB, no w/r/r, non-labored Heart: RRR, S1, S2 normal, no murmur, rub or gallop. JVP not elevated, no LE edema Chest: LifeVest in place Abdomen: soft, NT/ND; bowel sounds normal Extremities: extremities normal, warm and well-perfused, equal pulses Skin: numerous areas of induration and scarring on UE, worse on LUe than RUE. Excoriations present Neurologic: No abnormal movements, non-focal exam Lab/Radiology/Diagnostic Review: Labs: Recent Labs Lab Units 08/04/22 1403 HEMOGLOBIN g/dL 11.3* HEMATOCRIT % 35.2* WBC K/cumm 6.8 PLATELETS K/cumm 264 Recent Labs Lab Units 08/04/22 1403 SODIUM mmol/L 139 POTASSIUM PLASMA mmol/L 4.0 CHLORIDE mmol/L 105 CO2 mmol/L 23 ANIONGAP mmol/L 11 BUN SERUM mg/dL 15 CREATININE mg/dL 0.93 CALCIUM mg/dL 9.4 MAGNESIUM mg/dL 2.0 Recent Labs Lab Units 08/04/22 1403 ALBUMIN g/dL 4.1 ALK PHOS Units/L 76 AST Units/L 16 ALT Units/L 8 BILIRUBIN TOTAL mg/dL 0.3 Cultures: Lab Results Component Value Date MICROBIOLOGY 07/02/2022 Final Report: Growth indicates upper respiratory geronimo. MICROBIOLOGY Final Report: No growth 07/02/2022 I personally reviewed the Telemetry images with the following findings: As per HPI I personally reviewed the ECG images with the following findings: 08/04/22: SB, TWI through precordium and laterally. QTc measured at 433 TTE: 07/02/22: Conclusions: Normal left ventricular wall thickness. Severe global left ventricular systolic dysfunction. There is pseudonormal diastolic dysfunction Grade II. Ejection fraction is visually estimated at 28 %. These segments of the LV are hypokinetic mid anterior segment, apical segment, apical lateral segment and apical inferior segment. Picture could be compatible with Takotsubo or ischemic Cardiomyopathy. 07/2022: CONCLUSIONS: Normal left ventricular systolic function with no focal wall motion abnormalities. Normal left ventricular size. Mild concentric left ventricular hypertrophy. Ejection fraction is measured at 56 %. Cardiac catheterization: 06/2022 [facility] at [facility] without CAD I personally reviewed the CXR images with the following findings: No acute cardiopulm disease Assessment/Plan Margy Saldana is a 41 y.o. female with a history of LQT induced PMVt/TdP, Takutsubo CM, Opioid use disorder presenting with above CC. Electrophysiology has been consulted for bradycardia. #Sinus bradycardia: Myriad of symptoms worsened when pt bradycardic compared to baseline. Pt's lastuse of Fentanyl 3-4 days prior to admission. At this time -Agree with holding metoprolol at this time -Cont Tele monitoring -Repeat TTE showing normalization of EF, so will need to make a decision through patient's hospitalization if this is a vital medication #H/o PMVT/TdP: Previously in setting of LQT 2/2 being on methadone. QTc normalized during this admission -CTM on tele -Would avoid any Qt prolonging medications if possible -Keep K>4, Mg>2 # warmth sensation, dizziness, palpations: Unclear etiology at this time. -Agree with LifeVest interrogation to see if she had any ventricular arrhythmias prior to this admission -Episodes occur 3-4 days after using Fentanyl, and pt states other than this has been fine. Agree with Psychiatry consult to eval for treatment for anxiety, as pt states this is the main trigger for her Fentanyl use. We appreciate the ability to be involved in this patient's care. Rashaun Benavidez MD Clinical Cardiac Electrophysiology [facility] [place]-Cardiology at 12:25 PM 08/05/22 * Renaldo Hernandez NP - 08/05/2022 10:41 AM CDTAssociated Order(s): IP CONSULT TO CARDIOLOGY CARDIOLOGY CONSULT DATE OF CONSULT: 08/05/2022 CHIEF COMPLAINT Dizziness HPI Patient was requested to be seen in consultation by Austyn Fitzgerald MD for new T-wave inversion. Margy Saldana is a 41 y.o. female with past medical history of nonischemic cardiomyopathy EF 28%,history of polymorphic VT, hypertension, history of fentanyl abuse. We saw the patient when she washospitalized in 06/2022. She initially presented to [facility] with chest pain and palpitations after taking a fentanyl pill. She was found to be in polymorphic VT. She underwent cardiac catheterization which demonstrated normal coronary arteries, possible takotsubo cardiomyopathy. She had recurrent VT and received approximately 8 shocks on 06/30 and was transferred to [facility] on 07/01. 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 She was discharged home on 07/08/2022 with LifeVest and on metoprolol succinate 25 mg p.o. daily and losartan 12.5 mg p.o. b.i.d.. [facility] 08[facility]22 with complaints of dizziness and lightheadedness. 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 She denies any palpitations or shortness of breath. She does admit to chest pain which she states has been present since her last hospitalization that is worse with palpation and deep inspiration. Blood pressure on presentation was 134/75, heart rate 62. Troponins negative x3. UDS positive forfentanyl and patient admits to having used fentanyl several times since her last hospitalization but states her last use was approximately 1 week ago. MEDICAL HISTORY Past Medical History: Diagnosis Date ??? Hypertension ??? Ventricular dysfunction Social History Tobacco Use ??? Smoking status: Never ??? Smokeless tobacco: Never Substance and Sexual Activity ??? Drug use: Not Currently Types: Amphetamines, Benzodiazepines, Fentanyl, Opioid ??? Sexual activity: Defer Alcohol Use: Not At Risk (07/01/2022) AUDIT-C ??? Frequency of Alcohol Consumption: Never ??? Average Number of Drinks: Not on file ??? Frequency of Binge Drinking: Never Family history: No family history of premature coronary artery disease. Allergies Allergen Reactions ??? Sumatriptan Anaphylaxis Reaction: ANAPHYLAXIS ??? Sulfa (Sulfonamide Antibiotics) Rash ??? Amoxicillin Rash Reaction: RASH Medications Prior to Admission Medication Sig Dispense Refill Last Dose ??? chlordiazePOXIDE (LIBRIUM) 25 mg capsule Take 1 capsule (25 mg total) by mouth 3 (three) times a day as needed for anxiety or withdrawal symptoms 30 capsule 0 ??? losartan (COZAAR) 25 mg tablet Take 0.5 tablets (12.5 mg total) by mouth daily 30 tablet 0 ??? metoprolol XL (TOPROL-XL) 25 mg extended release tablet Take 1 tablet (25 mg total) by mouth daily 30 tablet 1 Current Facility-Administered Medications: ??? Carrier Fluids for Secondary Infusion - 0.9% Sodium Chloride, 30 mL, intravenous, PRN, Austyn Fitzgerald MD ??? docusate sodium (COLACE) capsule 100 mg, 100 mg, oral, BID PRN, Austyn Fitzgerald MD ??? escitalopram (LEXAPRO) tablet 20 mg, 20 mg, oral, Daily, Fred Rodriguez MD ??? losartan (COZAAR) tablet 12.5 mg, 12.5 mg, oral, Daily, Fred Rodriguez MD, 12.5 mg at 08/04/222153 ??? metoprolol XL (TOPROL-XL) extended release tablet 25 mg, 25 mg, oral, Daily, Fred Rodriguez MD, 25 mg at 08/04/222153 ??? ondansetron ODT (ZOFRAN-ODT) disintegrating tablet 4 mg, 4 mg, oral, Q6H PRN OR ondansetron(ZOFRAN) injection 4 mg, 4 mg, intravenous, Q6H PRN, Austyn Fitzgerald MD ??? sodium chloride 0.9% flush 0.5-20 mL, 0.5-20 mL, intra-catheter, Q8H KENTRELL, Austyn Fitzgerald MD ??? sodium chloride 0.9% flush 0.5-20 mL, 0.5-20 mL, intra-catheter, PRN, Austyn Fitzgerald MD REVIEW OF SYSTEMS Review of Systems Constitutional: Negative for chills and fever. HENT: Negative for sinus pressure and sinus pain. Eyes: Negative for discharge and itching. Respiratory: Negative for chest tightness and shortness of breath. Cardiovascular: Negative for chest pain and palpitations. Gastrointestinal: Negative for nausea and vomiting. Endocrine: Negative for cold intolerance and heat intolerance. Genitourinary: Negative for dysuria and hematuria. Musculoskeletal: Negative for neck pain and neck stiffness. Skin: Negative for rash and wound. Allergic/Immunologic: Negative for environmental allergies and food allergies. Neurological: Positive for dizziness, weakness and light-headedness. Hematological: Negative for adenopathy. Does not bruise/bleed easily. Psychiatric/Behavioral: Negative for agitation and confusion. The patient is nervous/anxious. Breast: Negative for breast discharge and lump(s). LABS AND OTHER DIAGNOSTIC TESTS Lab Results Component Value Date WBC 6.8 08/04/2022 HGB 11.3 (L) 08/04/2022 HCT 35.2 (L) 08/04/2022 MCV 86.9 08/04/2022 Recent Labs Lab Units 08/04/22 1403 CO2 mmol/L 23 CREATININE mg/dL 0.93 CALCIUM mg/dL 9.4 TOTAL PROTEIN g/dL 7.0 BILIRUBIN TOTAL mg/dL 0.3 ALK PHOS Units/L 76 ALT Units/L 8 AST Units/L 16 GLUCOSE mg/dL 115 EKG on admission, which I personally reviewed, demonstrates sinus bradycardia, T-wave inversion in V1 through V5, heart rate 58. Chest x-ray on admission, which I personally reviewed, demonstrated noacute findings. Echocardiogram done 07/02/2022, which I personally reviewed, demonstrated EF 28%, grade 2 diastolic dysfunction, hypokinetic mid anterior segment, apical segment, apical lateral segment and apical inferior segment. Cardiac catheterization done 06/30/2022 at [facility], which I personally reviewed, demonstrated normal coronary arteries, possible takotsubo cardiomyopathy. PHYSICAL EXAM Vitals: 08/05/22 0200 08/05/22 0350 08/05/22 0545 08/05/22 0841 BP: 127/78 104/53 BP Location: Right arm Right arm Patient Position: Sitting Pulse: 58 71 52 72 Resp: 18 19 Temp: 36.8 ??C (98.3 ??F) 36.7 ??C (98.1 ??F) TempSrc: Oral Oral SpO2: 96% 94% Weight: 74.1 kg (163 lb 6.4 oz) Height: 165.1 cm (5' 5 ) Physical Exam Vitals reviewed. HENT: Head: Normocephalic and atraumatic. Nose: Nose normal. Mouth/Throat: Pharynx: Oropharynx is clear. Eyes: Conjunctiva/sclera: Conjunctivae normal. Cardiovascular: Rate and Rhythm: Normal rate and regular rhythm. Pulmonary: Effort: Pulmonary effort is normal. Breath sounds: Normal breath sounds. Abdominal: General: There is no distension. Palpations: Abdomen is soft. Tenderness: There is no abdominal tenderness. Musculoskeletal: Right lower leg: No edema. Left lower leg: No edema. Skin: General: Skin is warm and dry. Neurological: Mental Status: She is alert. Comments: Awake and alert Psychiatric: Comments: Awake and alert ASSESSMENT -dizziness -intermittent sinus bradycardia -hypotension -history of nonischemic cardiomyopathy EF 28% -history of polymorphic VT -history of hypertension -fentanyl abuse -anxiety/depression PLAN/RECOMMENDATIONS -dizziness: Patient presented with acute onset dizziness. Intermittent sinus bradycardia and hypotension noted since admission. Will place her Toprol-XL and losartan on hold. Check orthostatics. Check echocardiogram. -intermittent sinus bradycardia: Heart rate as low as 38 beats per minute noted overnight during sleeping hours. Will hold Toprol-XL for now. Will consult electrophysiology, Dr. Benavidez for further recommendations given history of polymorphic VT. -hypotension: Blood pressure 104/[address] her Toprol-XL and losartan on hold. Check orthostatics. -history of nonischemic cardiomyopathy EF 28%: Normal coronaries per catheterization in 06/2022. Will hold Toprol XL and losartan for now given lower blood pressures and presentation with dizziness. Check repeat echocardiogram. -history of polymorphic VT: Patient had recurrent polymorphic VT in 06/2022. 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 Await EP recommendations. -history of hypertension: Blood pressure now on the lower side. Holding Toprol XL and losartan. -fentanyl abuse: Patient admits to using fentanyl on several occasions since her last hospitalization. She was advised to not take methadone given concern for QT interval prolongation. Behavioral Health and social work consulted. -anxiety/depression: Patient admits to untreated anxiety and depression and states she has been self medicating with fentanyl. Recommend psych consult. Discussed with Dr. Akins. My total encounter time on 08/05/2022 was 38 minutes which was spent in the activities documented in the note. This includes time spent prior to the visit and after the visit in direct care of the patient. This time does not include time spent in any separately reportable services. Thank you for allowing us to participate in the care of this patient. Renaldo Hernandez NP Cosigned by Stefany Winkler DO at 08/05/2022 2:51 PM CDT Associated attestation - Stefany Winkler DO - 08/05/2022 2:51 PM CDT I personally performed a substantive portion of this patient encounter in conjunction with Renaldo hernandez NP. My impression/plan is -hypotension: Patient presented with dizziness, has had lower blood pressures/hypotension, and is also having episodes of intermittent sinus bradycardia. Will place losartan on hold. Continue to monitor blood pressure. Check orthostatics. Check repeat echocardiogram. -intermittent sinus bradycardia: Patient is experiencing intermittent sinus bradycardia, with heartrates down into the low 40s while she is awake, episodes down into the 30s while sleeping. Given her bradycardia and hypotension, will place Toprol-XL on hold. Patient was started on Toprol-XL not only for treatment of her nonischemic cardiomyopathy, but also due to recent polymorphic ventricular tachycardia. Therefore, will consult EP for further evaluation regarding beta-lane therapy. -dizziness: Patient is having episodes of dizziness, which I suspect is secondary to hypotension. She is however, also having episodes of intermittent sinus bradycardia. Place losartan and Toprol on hold. -recent polymorphic ventricular tachycardia: Will place Toprol on hold, and consult EP for further evaluation. No current ventricular tachycardia. -takotsubo cardiomyopathy EF 28%: Patient has recent takotsubo cardiomyopathy with EF of 20% diagnosed approximately 1 month ago. Ordered a repeat echocardiogram today, and patient's echocardiogram demonstrates normalization of her LV function. Will review patient's life vest report, she is not hadany further episodes of ventricular tachycardia, will tentatively plan to remove the LifeVest. -hypertension: Patient has history of hypertension, but is currently hypotensive. Losartan on hold. -fentanyl abuse: Patient freely admits to still using fentanyl from time to time, states it is muchharder now that she has been instructed not to use methadone. The methadone was thought to cause her QT prolongation and her polymorphic ventricular tachycardia. -anxiety/depression: Patient states she has anxiety/depression, has had for years. In the past, shewas on medication but currently is not taking any. She is interested in seeing a psychiatrist, and feels that treatment of her anxiety and depression would help prevent her from using fentanyl. I discussed the patient at length with Dr. Tara templeton. Also discussed the patient at length with . I spent 49 minutes of non-overlapping time managing the patient independent of Renaldo hernandez NP today. documented in this encounter Nursing Notes * Ophelia Duran RN - 08/06/2022 6:07 PM CDT Discharge instructions given- voiced understanding. IV x2 removed- canula's intact. * Ophelia Duran RN - 08/05/2022 4:45 PM CDT Pt declined participating in the drug and alcohol assessment. documented in this encounter ED Notes * Austyn Fitzgerald MD - 08/04/2022 3:09 PM CDT HPI Chief Complaint Patient presents with Dizziness Rapid Heart Rate Wearing a life vest due to torsades a month ago,. Recently had magnesium for low lab value. Today having dizziness. And a rapid heart rate The above entry was entered by triage nurse. Patient endorses dizziness. Patient gives onset of dizziness approximately past 48 hours. Patient does endorse chest pain that has been constant for the past 6 weeks. Patient denies any alleviating or exacerbating factors. Patient denies her life vest going to. Patient denies difficulty with speech. Patient denies weakness of upper extremities. Patient denies weakness of lower extremities. HPI Patient History: Patient Active Problem List Diagnosis Date Noted Opioid dependence with withdrawal ([facility]) ([facility]) 03/04/2020 T wave inversion in EKG 08/04/2022 Opioid abuse ([facility]) HFrEF (heart failure with reduced ejection fraction) ([facility]) ([facility]) Ventricular tachycardia ([facility]) 07/01/2022 Past Medical History: Diagnosis Date Hypertension Ventricular dysfunction Past Surgical History: Procedure Laterality Date HYSTERECTOMY No family history on file. Social History Tobacco Use Smoking status: Never Smokeless tobacco: Never Vaping Use Vaping status: Not on file Substance and Sexual Activity Alcohol use: Not Currently Drug use: Not Currently Types: Amphetamines, Benzodiazepines, Fentanyl, Opioid Sexual activity: Defer Social History Social History Narrative Not on file Review of Systems Review of Systems All other systems reviewed and are negative. Physical Exam ED Triage Vitals Temp Pulse Resp BP SpO2 08/04/22 1253 08/04/22 1253 08/04/22 1253 08/04/22 1253 08/04/22 1256 36.4 ??C (97.5 ??F) 62 16 134/75 100 % Temp src Heart Rate Source Patient Position BP Location FiO2 (%) 08/04/22 1253 -- -- -- -- Tympanic Height Height Method Weight Weight Method 08/04/22 1253 08/04/22 1253 08/04/22 1253 -- 1.575 m (5' 2 ) Stated 72.6 kg (160 lb) Patient Vitals for the past 24 hrs: BP Temp Temp src Pulse Resp SpO2 Height Weight 08/04/22 1737 104/72 -- -- -- -- -- -- -- 08/04/22 1736 -- -- -- 53 14 96 % -- -- 08/04/22 1652 102/67 -- -- (!) 48 13 97 % -- -- 08/04/22 1521 101/69 -- -- 52 13 95 % -- -- 08/04/22 1439 -- -- -- (!) 44 15 94 % -- -- 08/04/22 1437 99/56 -- -- 50 14 93 % -- -- 08/04/22 1406 122/67 -- -- 56 18 96 % -- -- 08/04/22 1321 137/85 -- -- 60 13 95 % -- -- 08/04/22 1256 -- -- -- -- -- 100 % -- -- 08/04/22 1253 134/75 36.4 ??C (97.5 ??F) Tympanic 62 16 -- 157.5 cm (5' 2 ) 72.6 kg (160 lb) Physical Exam Vitals and nursing note reviewed. Constitutional: General: She is not in acute distress. Appearance: She is well-developed. HENT: Head: Normocephalic and atraumatic. Eyes: Conjunctiva/sclera: Conjunctivae normal. Cardiovascular: Rate and Rhythm: Normal rate and regular rhythm. Heart sounds: No murmur heard. Pulmonary: Effort: Pulmonary effort is normal. No respiratory distress. Breath sounds: Normal breath sounds. Abdominal: Palpations: Abdomen is soft. Tenderness: There is no abdominal tenderness. Musculoskeletal: General: No swelling. Cervical back: Neck supple. Skin: General: Skin is warm and dry. Capillary Refill: Capillary refill takes less than 2 seconds. Neurological: Mental Status: She is alert. Psychiatric: Mood and Affect: Mood normal. MDM Results for orders placed or performed during the hospital encounter of 08/04/22 CBC with auto differential Result Value Ref Range WBC 6.8 3.8 - 9.9 K/cumm Hgb 11.3 (L) 11.9 - 15.5 g/dL Hct 35.2 (L) 35.6 - 45.5 % Plt 264 150 - 400 K/cumm MPV 11.4 9.1 - 12.3 fL RBC 4.05 3.90 - 5.20 M/cumm MCV 86.9 81.3 - 96.4 fL MCH 27.9 27.1 - 33.3 pg MCHC 32.1 (L) 32.3 - 35.7 g/dL RDW CV 13.0 11.1 - 14.9 % RDW SD 41.0 35.7 - 48.1 fL NRBC abs 0.00 0.00 - 0.01 K/cumm Comprehensive metabolic panel Result Value Ref Range Sodium 139 135 - 145 mmol/L Potassium, pl 4.0 3.3 - 4.9 mmol/L Chloride 105 97 - 110 mmol/L CO2 23 22 - 32 mmol/L Anion gap 11 2 - 15 mmol/L BUN 15 8 - 25 mg/dL Creatinine 0.93 0.60 - 1.10 mg/dL Glucose 115 70 - 199 mg/dL Calcium 9.4 8.5 - 10.3 mg/dL Bilirubin, total 0.3 0.1 - 1.2 mg/dL Protein, pl 7.0 6.5 - 8.5 g/dL Albumin 4.1 3.5 - 5.0 g/dL Alk phos 76 40 - 130 Units/L ALT 8 7 - 45 Units/L AST 16 10 - 45 Units/L Troponin T high-sensitivity series (baseline, 2hr, 4hr, 6hr) Result Value Ref Range Trop T hs 10 <=14 ng/L Differential, auto Result Value Ref Range Neutrophil abs 5.1 1.7 - 6.5 K/cumm Imm gran abs 0.0 0.0 - 0.1 K/cumm Lymphocyte abs 1.2 0.8 - 3.3 K/cumm Monocyte abs 0.4 0.2 - 0.8 K/cumm Eosinophil abs 0.1 0.0 - 0.5 K/cumm Basophil abs 0.0 0.0 - 0.1 K/cumm Neutrophil pct 75.0 % Imm gran pct 0.3 % Lymphocyte pct 17.6 % Monocyte pct 5.6 % Eosinophil pct 1.2 % Basophil pct 0.3 % Troponin T high-sensitivity 2-hour Result Value Ref Range Trop T hs 8 <=14 ng/L Trop T hs delta -2 ng/L Trop T hs interp Insignificant Troponin T high-sensitivity 4-hour Result Value Ref Range Trop T hs 7 <=14 ng/L Trop T hs delta -3 ng/L Trop T hs interp Insignificant eGFR Result Value Ref Range eGFR 79 mL/min/1.73 m2 Magnesium Result Value Ref Range Magnesium 2.0 1.4 - 2.5 mg/dL XR Chest 1 Vw Portable Final Result No active disease. Electronically signed by: Cuauhtemoc Leo M.D. 6:15 PM Sinus rhythm, rate 55. QRS, VT, QT Interval WNL. Normal axis. No ST elevation or depression. T-waveinversion in V1, V2, V3, V4, & V5. Clinical Interpretation: nonspecific EKG. New T-wave inversions in anterior lateral leads compared to EKG from July 20. Interpreted by Dr. Fitzgerald. Medical Decision Making Amount and/or Complexity of Data Reviewed Labs: ordered. Radiology: ordered. ECG/medicine tests: ordered. Risk Decision regarding hospitalization. 5:30 PM Case discussed with: Dr Mariam GAY physical exam, labs, radiographic evaluation, medications/interventions, EKG (if done), EMS note (if available) were discussed. He agrees with care plan; no recommendations given. 6:49 PM Case discussed with: Dr Piedra HPI, physical exam, labs, radiographic evaluation, medications/interventions, EKG (if done), EMS note (if available) were discussed. He agrees to admit the patient. Interim/bridging admission orders reviewed and agreed upon. Furthermore, the floor where the patient was admitted to and the consultants were agreed upon. Nursing notes reviewed as of this entry. EMS note (if available) has been reviewed. 6:51 PM On my initial discussion with Dr. Becerra I did not convey the acuity of the T- wave inversions. I used [employer] chart to update him of the new information. Final diagnoses: Lightheadedness T wave inversion in EKG Austyn Fitzgerald MD 08/04/221850 * Safia Srinivasan, ZANE - 08/04/2022 12:51 PM CDT Wearing a life vest due to torsades a month ago,. Recently had magnesium for low lab value. Today having dizziness. And a rapid heart rate documented in this encounter Miscellaneous Notes * Initial Assessments - Nadeem, StephanieISAIAS myers - 08/06/2022 3:46 PM CDT CM Initial Assessment Interview Note Information Obtained From: Patient (08/06/221540) Admission Source: [facility] ED Impression: Dizziness and Rapid Heart Beat Plan Includes: Cardiology consult, Continue metoprolol, environmental services assistant consulted Primary Source of Transportation: Does the patient need discharge transport arranged?: No Has discharge transport been arranged?: No (08/06/22 154) Health Insurance Coverage: [place] Medicaid Prescription Coverage: yes Pharmacy: [facility] [place], [place] - [address] [facility] [address] [facility] [address] [employer] [id number] [place], [place] [facility] [address] [address] [address] [facility] [facility] [phone] Primary Care Provider: No, Physician Prior to Admission: Primary Caregiver: Self Who does the patient or legal guardian want to receive education instruction and discharge plans for after care assistance?: Decline Caregiver Name: iTla Cuevas Relationship to patient: Mother Caregiver Contact Information: [phone] Support System: Parent, Children Support system contact info (name, phone, availablity): Tila Cuevas [phone] Home Care Services: No Durable Medical Equipment: None Living Arrangements: Family members Type of Residence: Private residence Steps in home?: Yes, Outside of home Number of steps outside: 4 steps (08/06/221540) SDOH: Transportation: In the past 12 months, has lack of transportation kept you from medical appointments or from getting medications?: No In the past 12 months, has lack of transportation kept you from meetings, work, or from getting things needed for daily living?: No (08/06/221539) Financial Resource: How hard is it for you to pay for the very basics like food, housing, medical care, and heating?: Very hard (08/06/221539) Housing: In the last 12 months, was there a time when you were not able to pay the mortgage or rent on time?: No In the last 12 months, how many places have you lived?: 1 In the last 12 months, was there a time when you did not have a steady place to sleep or slept in ashelter (including now)?: No (08/06/221540) Social Connections: In a typical week, how many times do you talk on the phone with family, friends, or neighbors?: More than three times a week How often do you get together with friends or relatives?: More than three times a week How often do you attend hinduism or yarsanism services?: Never Do you belong to any clubs or organizations such as hinduism groups, unions, fraternal or athletic groups, or school groups?: No Are you , , , , never , or living with a partner?: (08/06/221539) Food Insecurity: Within the past 12 months, you worried that your food would run out before you got the money to buymore.: Never true Within the past 12 months, the food you bought just didn't last and you didn't have money to get more.: Never true (08/06/221540) Alcohol Use: PHQ Screening Potential discharge needs include: Dialysis: N/A Behavioral Health Services: Behavioral Health Services: No (Pt reports that she has used used [place] for detox in the past andhas spoke to the dr regarding anxiety and is awaiting a psych eval.) (08/06/221540) Patient expects to be Discharged to: Private residence, (08/06/221540) Additional Information: CARLY met at bedside to discuss plan of care, anticipated discharge date, and goal for discharge. Demographic were verified via facesheet. SDOH(social connections, finances and transportation) completed . Pt is a 41 y/o white female admitted for dizziness and rapid heart beat. She is oriented x4. Pt reports that patient lives with her mother and daughter in a house with 4 steps outside. Pt is independent with her ADLs. No DME. No transportation needed. SW discussed DPOA andprovided a form. Pt has no income and has [place] Medicaid. Pcp is [facility] in [place], [place]. Pt request bedside delivery of meds. She also reports being behind with electric [employer]. SW provided a referral list. A list of detox programs was also provided as pt has a substance abuse problem. Pt said that she is awaiting a psych eval due to having anxiety. .Patient's Identified Problem/Goal Problem: Ensure acute medical needs [...] community resources. Plan includes: 1. Collaboration with patient, MD, direct care nurse, Painter Chassis, and other members of the health care team to assure needed interventions completed. 2. Return patient to optimal level of self-care post discharge. 3. [employer]dn[employer]er will follow for Discharge Planning - interventions as needed 4. Anticipated level of care at discharge 5. Planned Discharge Disposition [facility] [employer] Case Management\ [phone] * Plan of Care - Ophelia Duran RN - 08/06/2022 10:35 AM CDT Goals: Clinical Goals for the Shift: rest Summary: Problem: Activity: Goal: Risk for activity intolerance will decrease Outcome: Progressing Problem: Health Behavior: Goal: Ability to state signs and symptoms to report to health care provider will improve Outcome: Progressing Problem: Infection Risk: Goal: Will remain free from infection Outcome: Progressing Problem: Safety: Goal: Will remain free from falls Outcome: Progressing * Consults, Subsequent - Rashaun Benavidez MD - 08/06/2022 8:03 AM CDT Cardiology Daily Progress Note - Electrophysiology Chief complaint: weakness, feelings of warmth, palpiations Interval History: Did well overnight. Ambulated to bathroom a few times without issue, however did note her HR increased. No more feelings of symptoms that caused admission. No CP, LH, dizziness, palpitations. Tele showing SR/SB, bradycardic mainly overnight night, able to augment HR. Objective Vital Signs: 24hr Min/Max: Temp Min: 36.6 ??C (97.9 ??F) Max: 36.9 ??C (98.5 ??F) Pulse Min: 53 Max: 72 BP Min: 96/56 Max: 122/77 Resp Min: 18 Max: 20 SpO2 Min: 87 % Max: 97 % Most Recent: Vitals: 08/06/22 0439 BP: 106/60 Pulse: 59 Resp: 18 Temp: 36.6 ??C (97.9 ??F) SpO2: 97% Intake/Output: Intake/Output Summary (Last 24 hours) at 08/06/2022 0803 Last data filed at 08/05/2022 1336 Gross per 24 hour Intake 449 ml Output -- Net 449 ml Physical Exam: General appearance: no acute distress HENT:NCAT,poor dentition Eyes: Anicteric Lungs: CTAB, no w/r/r, non-labored Heart: bradycardic, reg rhythm, S1, S2 normal, no murmur, rub or gallop. JVP not elevated, no LE edema Abdomen: obese, soft, NT/ND; bowel sounds normal Extremities: BLUE with scarring from prior drug use and multiple excoriations Skin: warm and dry Neurologic: No abnormal movements, non-focal exam Current Medications: Current Facility-Administered Medications: Carrier Fluids for Secondary Infusion - 0.9% Sodium Chloride, 30 mL, intravenous, PRN docusate sodium (COLACE) capsule 100 mg, 100 mg, oral, BID PRN escitalopram (LEXAPRO) tablet 20 mg, 20 mg, oral, Daily hydrocortisone 2.5 % ointment, , topical, BID PRN hydrOXYzine (ATARAX) tablet 25 mg, 25 mg, oral, QID PRN, 25 mg at 08/05/22 1410 [Held by Provider] losartan (COZAAR) tablet 12.5 mg, 12.5 mg, oral, Daily, 12.5 mg at 08/04/224 [Held by Provider] metoprolol XL (TOPROL-XL) extended release tablet 25 mg, 25 mg, oral, Daily, 25 mg at 08/04/22 2154 ondansetron ODT (ZOFRAN-ODT) disintegrating tablet 4 mg, 4 mg, oral, Q6H PRN OR ondansetron (ZOFRAN) injection 4 mg, 4 mg, intravenous, Q6H PRN sodium chloride 0.9% flush 0.5-20 mL, 0.5-20 mL, intra-catheter, Q8H KENTRELL, 10 mL at 08/06/22 0516 sodium chloride 0.9% flush 0.5-20 mL, 0.5-20 mL, intra-catheter, PRN Lab/Radiology/Diagnostic Review: Labs: Recent Labs Lab Units 08/04/22 1403 HEMOGLOBIN g/dL 11.3* HEMATOCRIT % 35.2* WBC K/cumm 6.8 PLATELETS K/cumm 264 Recent Labs Lab Units 08/04/22 1403 SODIUM mmol/L 139 POTASSIUM PLASMA mmol/L 4.0 CHLORIDE mmol/L 105 CO2 mmol/L 23 ANIONGAP mmol/L 11 BUN SERUM mg/dL 15 CREATININE mg/dL 0.93 CALCIUM mg/dL 9.4 MAGNESIUM mg/dL 2.0 Recent Labs Lab Units 08/04/22 1403 ALBUMIN g/dL 4.1 ALK PHOS Units/L 76 AST Units/L 16 ALT Units/L 8 BILIRUBIN TOTAL mg/dL 0.3 Cultures: Lab Results Component Value Date MICROBIOLOGY 07/02/2022 Final Report: Growth indicates upper respiratory geronimo. MICROBIOLOGY Final Report: No growth 07/02/202207/2022 TTE: FINDINGS: Left Ventricle: Normal left ventricular systolic function with no focal wall motion abnormalities. Normal left ventricular size. Mild concentric left ventricular hypertrophy. Ejection fraction is measured at 56 %. Pericardium: Normal pericardium with no significant pericardial effusion. Assessment/Plan Margy Saldana is a 41 y.o. female with a history of LQT induced PMVt/TdP, [place] CM, Opioid use disorder presenting with above CC. Electrophysiology has been consulted for bradycardia. #Sinus bradycardia: Periods of bradycardia still occurring, mainly during periods of staying in bed/sleep. Able to augment Hr with ambulation and no s/s of symptomatic bradycardia -Discontinue Metoprolol, especially in setting of normalized EF, as would not wanted to worsen bradycardia in this young patient -Cont Tele monitoring #H/o PMVT/TdP: Previously in setting of LQT 2/2 being on methadone. QTc normalized during this admission -CTM on tele -Would avoid any Qt prolonging medications if possible -Keep K>4, Mg>2 # warmth sensation, dizziness, palpations: Unclear etiology at this time. -LifeVest interrogation pending -Episodes occur 3-4 days after using Fentanyl, and pt states other than this has been fine. Possibly these symptoms are related to withdrawal symptoms. Agree with Psychiatry consult to eval for treatment for anxiety, as pt states this is the main trigger for her Fentanyl use. Rest of the plan as per primary team. Thank you for the consult. We will continue to follow. Pleasecall with additional questions or concerns. Rashaun Benavidez MD Clinical Cardiac Electrophysiology [facility]-Cardiology at 8:03 AM 08/06/22 ADDENDUM: Kestra WCD interrogation reviewed showing compliance with vest however no ventricular tachycarrhythmias seen. No changes in treatment. EP will sign off at this time. * Plan of Care - Tila Huff RN - 08/05/2022 9:00 PM CDT Goals: Clinical Goals for the Shift: Free of pain Summary: AAOx4. Denies chest pain. VSS. Tele SR. No acute distress noted. Problem: Activity: Goal: Risk for activity intolerance will decrease Outcome: Progressing Problem: Lack of Knowledge: Goal: Knowledge of diagnostic tests will improve Outcome: Progressing Goal: Knowledge of disease or condition will improve Outcome: Progressing Problem: Health Behavior: Goal: Ability to state signs and symptoms to report to health care provider will improve Outcome: Progressing Problem: Physical Regulation: Goal: Ability to maintain clinical measurements within normal limits will improve Outcome: Progressing Problem: Lack of Knowledge: Goal: Knowledge of disease or condition and prescribed therapeutic regimen will improve Outcome: Progressing Problem: Coping: Goal: Level of anxiety will decrease Outcome: Progressing * Plan of Care - Tila Huff RN - 08/05/2022 1:55 AM CDT Goals: Pain control Summary: AAOx4. Denies CP. VSS. Lifevest in use. Tele SR with HR 79. Ambs in room with steady gait.No skin issues. Problem: Activity: Goal: Risk for activity intolerance will decrease Outcome: Progressing Problem: Lack of Knowledge: Goal: Knowledge of diagnostic tests will improve Outcome: Progressing Goal: Knowledge of disease or condition will improve Outcome: Progressing Goal: Knowledge of safety precautions will improve Outcome: Progressing Goal: Knowledge of the prescribed therapeutic regimen will improve Outcome: Progressing Problem: Lack of Knowledge: Goal: Knowledge of disease or condition and prescribed therapeutic regimen will improve Outcome: Progressing Problem: Coping: Goal: Level of anxiety will decrease Outcome: Progressing Problem: Sensory: Goal: Pain level will decrease Outcome: Progressing documented in this encounter Plan of Treatment Not on file documented as of this encounter Procedures Procedure Name Priority Date/Time Associated Diagnosis Comments TRANSTHORACIC ECHO (TTE) LIMITED/FOLLOW UP W LTD DOPPLER/CF WO CONTRAST Routine 08/05/2022 12:24 PM CDT DRUGS OF ABUSE SCREEN, URINE WITHOUT CONFIRMATION STAT 08/04/2022 7:08 PM CDT TROPONIN T HIGH-SENSITIVITY 4-HR Timed 08/04/2022 6:05 PM CDT TROPONIN T HIGH-SENSITIVITY 2-HOUR Timed 08/04/2022 4:43 PM CDT TROPONIN T HIGH-SENSITIVITY SERIES (BASELINE, 2HR, 4HR, 6HR) STAT 08/04/2022 2:03 PM CDT EGFR STAT 08/04/2022 2:03 PM CDT DIFFERENTIAL AUTO STAT 08/04/2022 2:0 3 PM CDT CBC WITH AUTO DIFFERENTIAL STAT 08/04/2022 2:03 PM CDT MAGNESIUM Add-On 08/04/2022 2:03 PM CDT COMPREHENSIVE METABOLIC PANEL STAT 08/04/2022 2:03 PM CDT XR CHEST 1 VIEW ED 08/04/2022 1:49 PM CDT ECG 12-LEAD STAT 08/04/2022 12:55 PM CDT documented in this encounter Results * TRANSTHORACIC ECHO (TTE) LIMITED/FOLLOW UP W LTD DOPPLER/CF WO CONTRAST (08/05/2022 12:24 PM CDT) Anatomical Region Laterality Modality Ultrasound 08/05/2022 12:1 4 PM CDT Narrative 08/05/2022 1:23 [place] [address] Limited Echocardiogram Report Patient Name: MARGY SALDANA N : 1980 Study Date: 08/05/2022 12:14:16 PM Gender: F Tech: Location: [id number] [facility] Provider: RENALDO HERNANDEZHeight(Cm): 165 BSA: 1.84 Weight(Kg): 74 Heart Rate: 62 BP: 104/53 Quality: Good Order Provider: RENALDO HERNANDEZ PROCEDURES: Echocardiographic Report: Limited transthoracic echocardiogram with 2D and color Doppler. INDICATIONS: Evaluate EF. Measurements: 2D/M Mode Measurement ?Value ?Normal Range ? LVIDd 2D ? 4.32 ? [ 3.90 - 5.30 ] cm ? LVIDs 2D ? 2.73 ? [ 2.30 - 3.90 ] cm ? LVPWd 2D ? 1.11 ? [ 0.60 - 1.00 ] cm ? IVSd 2D ?1.39 ? [ 0.60 - 0.90 ] cm ? Measurement ?Value ?Normal Range ? 2D/M Mode FINDINGS: Left Ventricle: Normal left ventricular systolic function with no focal wall motion abnormalities. Normal left ventricular size. Mild concentric left ventricular hypertrophy. Ejection fraction is measured at 56 %. Pericardium: Normal pericardium with no significant pericardial effusion. CONCLUSIONS: Normal left ventricular systolic function with no focal wall motion abnormalities. Normal left ventricular size. Mild concentric left ventricular hypertrophy. Ejection fraction is measured at 56 %. Electronically Signed By: Stefany Winkler DO, FACC, FASE, FASNC 2022-08-05 13:23:40 CDT CC: CC: CC: Procedure Note Stefany Winkler DO - 08/05/2022 [place] [address] Limited Echocardiogram Report Patient Name: MARGY SALDANA NPatient ID: [id number] : [id number] Date: 08/05/2022 12:14:16 PM Gender: FAccession #: [id number] Tech: CHLocation: [id number] Ref Provider: RENALDO HERNANDEZHeight(Cm): 165 BSA: 1.84Weight(Kg): 74 Heart Rate: 62BP: 104/53 Quality: GoodOrder Provider: RENALDO HERNANDEZ PROCEDURES: Echocardiographic Report: Limited transthoracic echocardiogram with 2D and color Doppler. INDICATIONS: Evaluate EF. Measurements: 2D/M Mode Measurement Value Normal Range LVIDd 2D 4.32 [ 3.90 - 5.30 ] cm LVIDs 2D 2.73 [ 2.30 - 3.90 ] cm LVPWd 2D 1.11 [ 0.60 - 1.00 ] cm IVSd 2D 1.39 [ 0.60 - 0.90 ] cm Measurement Value Normal Range 2D/M Mode FINDINGS: Left Ventricle: Normal left ventricular systolic function with no focal wall motionabnormalities. Normal left ventricular size. Mild concentric left ventricular hypertrophy.Ejection fraction is measured at 56 %. Pericardium: Normal pericardium with no significant pericardial effusion. CONCLUSIONS: Normal left ventricular systolic function with no focal wall motionabnormalities. Normal left ventricular size. Mild concentric left ventricular hypertrophy.Ejection fraction is measured at 56 %. Electronically Signed By: Stefany Winkler DO, FACBessy, CARMITA, JAZMIN 2022-08-05 13:23:40 CDT CC: CC: CC: [facility]al[facility] CV ECHO PROCEDURES Final Result * (ABNORMAL) Drugs of Abuse Screen, Urine without Confirmation (08/04/2022 7:08 PM CDT) Amphetamine, ur Not Detected CutOff 500ng/mL [facility] Comment: Interpretive Data - Amphetamines: ??Samples containing greater than 500 ng/mL d-methamphetamine ??or other cross-reacting amphetamine compounds are reported as positive. ??Amphetamine immunoassays are subject to significant false positive rates due to cross-reactivity of non-amphetamine drugs. Current Interpretive Data was last reviewed 2018. Barbiturates, ur Not Detected CutOff 200ng/mL [facility] Comment: Interpretive Data - Barbiturates: ??Samples containing greater than 200 ng/mL secobarbital or other cross-reacting barbiturate compounds are reported as positive. ??False positive and false negative results are possible. Current Interpretive Data was last reviewed 2018. Benzodiazepines, ur Not Detected CutOff 100ng/mL [facility] Comment: Interpretive Data - Benzodiazepines: ??Samples containing greater than 100 ng/mL nordiazepam or other cross-reacting compounds are reported as positive. ?? False positive and false negative results are possible. ?? Current Interpretive Data was last reviewed 2018. Cannabinoids, ur Not Detected CutOff 50 ng/mL [facility] Comment: Interpretive Data - Cannabinoids: ??Samples containing greater than 50 ng/mL delta-9 THC -COOH or other cross-reacting compounds are reported as positive. ??False positive and false negative results are possible. ?? Current Interpretive Data was last reviewed 2018. Cocaine, ur Not Detected CutOff 150ng/mL [facility] Comment: Interpretive Data - Cocaine: ??Samples containing greater than 150 ng/mL benzoylecgonine or other cross-reacting compounds are reported as positive. False positive and false negative results are possible. Current Interpretive Data was last reviewed 2018. Fentanyl, Ur Detected(A) Cutoff 1 ng/mL [facility] Comment: Interpretive Data - Fentanyls: ??Samples containing greater than 1 ng/mL fentanyl or other cross-reacting fentanyl compounds are reported as detected. ??False positive and false negative results are possible. Current Interpretive Data was last reviewed 2018. Methadone, ur Not Detected CutOff 300ng/mL [facility] Comment: Interpretive Data - Methadone: ??Samples containing greater than 300 ng/mL d,l-methadone or other cross-reacting compounds are reported as positive. ??False positive and false negative results are possible. Current Interpretive Data was last reviewed 2018. Opiates, ur Not Detected CutOff 300ng/mL [facility] Comment: Interpretive Data - Opiates: ??Samples containing greater than 300 ng/mL morphine or other cross-reacting compounds are reported as positive. ??False positive and false negative results are possible. Current Interpretive Data was last reviewed 2018. Oxycodone, ur Not Detected CutOff 100ng/mL [facility] Comment: Interpretive Data - Oxycodone: ??Samples containing greater than 100 ng/mL oxycodone or other cross-reacting compounds are reported as positive. ??False positive and false negative results are possible. ?? Current Interpretive Data was last reviewed 2018. Phencyclidine, ur Not Detected CutOff 25 ng/mL [facility] Comment: Interpretive Data - Phencyclidine: ??Samples containing greater than 25 ng/mL phencyclidine or other cross-reacting compounds are reported as positive. ??False positive and false negative results are possible. ?? Current Interpretive Data was last reviewed 2018. Urine Creatinine 83 mg/dL [facility] Comment: Interpretive Data Urine Creatinine: < 10 mg/dL is extremely dilute = or > 10 but < 20 mg/dL is dilute = or > 20 mg/dL is normal Current Interpretive Data was last revised on 2017. Urine 08/04/2022 7:08 PM CDT 08/04/2022 7:16 PM CDT Narrative [facility] - 08/04/2022 8:14 PM CDT Drug of Abuse screening is performed by immunoassay for medical purposes only. ??This is not to be used for Pain Management purposes. Result [facility] Austyn Fitzgerald MD LAB URINE ORDERABLES Final Result Performing Organization Address [facility] de Phone Number [facility] [address] [facility] [place] [address] * Troponin T high-sensitivity 4-hour (08/04/2022 6:05 PM CDT) Trop T hs 7 <=14 ng/L [facility] Comment: Interpretive Data For further hscTnT resources including the diagnostic algorithm and an aid in interpretation, copy and paste this link: [email or web address]/show/[email or web address] Current Interpretive Data last revised 2020. Trop T hs delta -3 ng/L [facility] Trop T hs interp Insignificant [facility] Blood 08/04/2022 6:05 PM CDT 08/04/2022 6:05 PM CDT Result [facility] Donna Cabral MD LAB BLOOD ORDERABLES F inal Result Performing Organization Address [facility] de Phone Number [facility] [address] [facility] [place] [address] * Troponin T high-sensitivity 2-hour (08/04/2022 4:43 PM CDT) Trop T hs 8 <=14 ng/L [facility] Comment: Interpretive Data For further hscTnT resources including the diagnostic algorithm and an aid in interpretation, copy and paste this link: [email or web address]/show/hsTrop Current Interpretive Data last revised 2020. Trop T hs delta -2 ng/L [facility] Trop T hs interp Insignificant [facility] Blood 08/04/2022 4:43 PM CDT 08/04/2022 4:43 PM CDT Result [facility] Donna Cabral MD LAB BLOOD ORDERABLES F inal Result Performing Organization Address [facility] Co de Phone Number [facility] [address] [place] [address] * Magnesium (08/04/2022 2:03 PM CDT) Pathologist [facility] Magnesium 2.0 1.4 - 2.5 mg/dL [facility] Blood 08/04/2022 2:03 PM CDT 08/04/2022 4:57 PM CDT Austyn Fitzgerald MD LAB BLOOD ORDERABLES Final Result Performing Organization Address [facility] de Phone Number [facility] [address] [employer] [place] [address] * eGFR (08/04/2022 2:03 PM CDT) Pathologist [facility] eGFR 79 mL/min/1. 73 m2 [facility] [facility] Comment: Interpretive Data Reference Interval Normal ?>/= [...] interpretive data was last reviewed 2021. Blood 08/04/2022 2:03 PM CDT 08/04/2022 2:03 PM CDT us Donna Cabral MD LAB BLOOD ORDERABLES F inal Result [facility] [id number] Department [place] [address] * Differential, auto (08/04/2022 2:03 PM CDT) Neutrophil abs 5.1 1.7 - 6.5 K/cumm [facility] Imm gran abs 0.0 0.0 - 0.1 K/cumm [facility] Lymphocyte abs 1.2 0.8 - 3.3 K/cumm [facility] Monocyte abs 0.4 0.2 - 0.8 K/cumm [facility] Eosinophil abs 0.1 0.0 - 0.5 K/cumm [facility] Basophil abs 0.0 0.0 - 0.1 K/cumm [facility] Neutrophil pct 75.0 % [facility] Comment: Interpretive Data Percent cell count reference ranges are not reported, since discordance with absolute values may lead to misinterpretation of CBC data. Current Interpretive Data was last revised on 2017. Imm gran pct 0.3 % [facility] Comment: Interpretive Data Percent cell count reference ranges are not reported, since discordance with absolute values may lead to misinterpretation of CBC data. Current Interpretive Data was last revised on 2017. Lymphocyte pct 17.6 % [facility] Comment: Interpretive Data Percent cell count reference ranges are not reported, since discordance with absolute values may lead to misinterpretation of CBC data. Current Interpretive Data was last revised on 2017. Monocyte pct 5.6 % [facility] Comment: Interpretive Data Percent cell count reference ranges are not reported, since discordance with absolute values may lead to misinterpretation of CBC data. Current Interpretive Data was last revised on 2017. Eosinophil pct 1.2 % [facility] Comment: Interpretive Data Percent cell count reference ranges are not reported, since discordance with absolute values may lead to misinterpretation of CBC data. Current Interpretive Data was last revised on 2017. Basophil pct 0.3 % [facility] Comment: Interpretive Data Percent cell count reference ranges are not reported, since discordance with absolute values may lead to misinterpretation of CBC data. Current Interpretive Data was last revised on 2017. Blood 08/04/2022 2:03 PM CDT 08/04/2022 2:03 PM CDT Austyn Fitzgerald MD LAB BLOOD ORDERABLES Final Result Performing Organization Address [facility] de Phone Number DONNATRAVIS [facility] [address] [place] [address] * Troponin T high-sensitivity series (baseline, 2hr, 4hr, 6hr) (08/04/2022 2:03 PM CDT) Trop T hs 10 <=14 ng/L [facility] Comment: Interpretive Data For further hscTnT resources including the diagnostic algorithm and an aid in interpretation, copy and paste this link: https://nrl.testcatalog.org/show/hsTrop Current Interpretive Data last revised 2020. Blood 08/04/2022 2:03 PM CDT 08/04/2022 2:03 PM CDT Austyn Fitzgerald MD LAB BLOOD ORDERABLES Edite d Result - Final Performing Organization Address [facility] Co de Phone Number [facility] [address] Department [employer] [place], [place] [id number] * Comprehensive metabolic panel (08/04/2022 2:03 PM CDT) Sodium 139 135 - 145 mmol/L [facility] Potassium, pl 4.0 3.3 - 4.9 mmol/L [facility] Chloride 105 97 - 110 mmol/L [facility] CO2 23 22 - 32 mmol/L [facility] Anion gap 11 2 - 15 mmol/L [facility] BUN 15 8 - 25 mg/dL [facility] Creatinine 0.93 0.60 - 1.10 mg/dL [facility] Glucose 115 70 - 199 mg/dL [facility] Comment: [...] classification and Diagnosis of Diabetes Diabetes Care 2021; 46: S19-S40. Current interpretive data was last revised 2022. Calcium 9.4 8.5 - 10.3 mg/dL [facility] Bilirubin, total 0.3 0.1 - 1.2 mg/dL [facility] Protein, pl 7.0 6.5 - 8.5 g/dL [facility] Albumin 4.1 3.5 - 5.0 g/dL [facility] Alk phos 76 40 - 130 Units/L [facility] ALT 8 7 - 45 Units/L [facility] AST 16 10 - 45 Units/L [facility] Blood 08/04/2022 2:03 PM CDT 08/04/2022 2:03 PM CDT us Austyn Fitzgerald MD LAB BLOOD ORDERABLES Final Result [facility] [id number] Department [place] [address] * (ABNORMAL) CBC with auto differential (08/04/2022 2:03 PM CDT) WBC 6.8 3.8 - 9.9 K/cumm [facility] Hgb 11.3(L) 11.9 - 15.5 g/dL [facility] Hct 35.2(L) 35.6 - 45.5 % [facility] Plt 264 150 - 400 K/cumm [facility] MPV 11.4 9.1 - 12.3 fL [facility] RBC 4.05 3.90 - 5.20 M/cumm [facility] MCV 86.9 81.3 - 96.4 fL [facility] MCH 27.9 27.1 - 33.3 pg [facility] MCHC 32.1(L) 32.3 - 35.7 g/dL [facility] RDW CV 13.0 11.1 - 14.9 % [facility] RDW SD 41.0 35.7 - 48.1 fL [facility] NRBC abs 0.00 0.00 - 0.01 K/cumm [facility] Blood (Blood, Venous) 08/04/2022 2:03 PM CDT 08/04/2022 2:03 PM CDT us Austyn Fitzgerald MD LAB BLOOD ORDERABLES Final Result [facility] [address] Department [place] [address] * XR Chest 1 Vw Portable (08/04/2022 1:49 PM CDT) Anatomical Region Laterality Modality Body, Chest N/A Computed Radiogr aphy 08/04/2022 1:53 PM CDT Impressions 08/04/2022 1:53 PM CDT No active disease. Electronically signed by: Cuauhtemoc Leo M.D. Narrative 08/04/2022 1:53 PM CDT EXAMINATION: XR CHEST 1 VIEW HISTORY: The patient is a 41-year-old female who presents with chest pain. Comparison made with the previous study dated 07/19/2022. TECHNIQUE: AP portable view of the chest. FINDINGS: Lungs clear. ??Cardiovascular structures unremarkable. Procedure Note Cuauhtemoc Leo MD - 08/04/2022 EXAMINATION: XR CHEST 1 VIEW HISTORY: The patient is a 41-year-old female who presents with chest pain. Comparison made with the previous study dated 07/19/2022. TECHNIQUE: AP portable view of the chest. FINDINGS: Lungs clear. Cardiovascular structures unremarkable. IMPRESSION: No active disease. Electronically signed by: Cuauhtemoc Leo M.D. us Austyn Fitzgerald MD IMG XR PROCEDURES Final Re sult * ECG 12 lead (08/04/2022 12:55 PM CDT) 08/04/2022 12:5 5 PM CDT Narrative [facility] - 08/04/2022 3:06 PM CDT Vent Rate: 58 bpm RR Interval: 1027 msec VT Interval: 163 msec QRS Duration: 108 msec QT Interval: 457 msec QTC Interval: 454 msec P-R-T [place]: 5 - 4 - 94 degrees SINUS BRADYCARDIA MARKED T-WAVE ABNORMALITY, CONSIDER ANTEROLATERAL ISCHEMIA ??[-0.5+ mV T-WAVE IN I/aVL/V3-V6] ABNORMAL ECG Compared to July 19, 2022, T-wave inversion appears to be deeper in leads V1, V2, new T inversion in leads V3 to V5 Electronically Signed By: Dr. Romelia Kruse [facility] us Austyn Fitzgerald MD ECG ORDERABLES Final Resu lt [facility] documented in this encounter Visit Diagnoses Diagnosis T wave inversion in EKG- Primary Lightheadedness Dizziness and giddiness T wave inversion in EKG Opioid abuse (HCC) Nondependent opioid abuse, unspecified HFrEF (heart failure with reduced ejection fraction) ([facility]/HCC) (HCC) Ventricular tachycardia ([facility]) Paroxysmal ventricular tachycardia documented in this encounter Admitting Diagnoses Diagnosis T wave inversion in EKG documented in this encounter Administered Medications Inactive Administered Medications - up to 3 most recent administrations Medication Order MAR Action Action Date Dose Rate Site escitalopram (LEXAPRO) tablet 20 mg 20 mg, oral, Nightly, First dose (after last modification) on Tue08/06/22 at 2100 hydrocortisone 2.5 % ointment topical, 2 times daily PRN, rash, irritation, Starting on Tue08/05/22 at 1102, Apply to affected area: rash, back hydrOXYzine (ATARAX) tablet 25 mg 25 mg, oral, 4 times daily PRN, anxiety, Starting on Tue08/05/22 at 1207 Given 08/05/2022 2:10 PM CDT 25 mg losartan (COZAAR) tablet 12.5 mg 12.5 mg, oral, Daily, First dose on Tue08/04/22 at 2040, On hold since Tue08/05/2022 at 1056 until manually unheld Given 08/04/2022 9:54 PM CDT 12.5 mg metoprolol XL (TOPROL-XL) extended release tablet 25 mg 25 mg, oral, Daily, First dose on Tue08/04/22 at 2040, Tablets that are scored may be split, but do not crush, chew, dissolve, open or otherwise manipulate tablet/capsule., On hold since Tue08/05/2022 at 1041 until manually unheld Given 08/04/2022 9:54 PM CDT 25 mg ondansetron (ZOFRAN) injection 4 mg 4 mg, intravenous, Administer over 2 Minutes, Every 6 hours PRN, nausea, vomiting, if not tolerating PO, Starting on Tue08/04/22 at 2037, Indications: Nausea and VomitingIndications:Nausea and Vomiting ondansetron ODT (ZOFRAN-ODT) disintegrating tablet 4 mg 4 mg, oral, Every 6 hours PRN, nausea, vomiting, Starting on Tue08/04/22 at 2037, Indications: Nausea and VomitingIndications:Nausea and Vomiting sodium chloride 0.9% flush 0.5-20 mL 0.5-20 mL, intra-catheter, Every 8 hours scheduled, First dose on Tue08/04/22 at 2200, Flush volume based on line type and size. , Indications: FlushingIndications:Flushing Given 08/06/2022 2:03 PM CDT 3 mL Given 08/06/2022 5:16 AM CDT 10 mL Given 08/05/2022 9:01 PM CDT 10 mL documented in this encounter Discontinued Medications Medication Sig Discontinue Reason Start Date End Da te losartan (COZAAR) 25 mg tablet Take 0.5 tablets (12.5 mg total) by mouth daily Stop Taking at Discharge 07/09/2022 08/06/2022 metoprolol XL (TOPROL-XL) 25 mg extended release tablet Take 1 tablet (25 mg total) by mouth daily Stop Taking at Discharge 07/09/2022 08/06/2022 chlordiazePOXIDE (LIBRIUM) 25 mg capsuleIndications:an xiety Take 1 capsule (25 mg total) by mouth 3 (three) times a day as needed for anxiety or withdrawal symptoms Stop Taking at Discharge 07/10/2022 08/06/2022 documented as of this encounter Active and Recently Administered Medications Times are shown in CDT. Scheduled Medication Order 08/04/2022 08/05/2022 08/06/2022 escitalopram (LEXAPRO) tablet 20 mg 20 mg, oral, Nightly, First dose (after last modification) on Tue08/06/22 at 2100 losartan (COZAAR) tablet 12.5 mg (CANCELED) 12.5 mg, oral, Daily, First dose on Tue08/04/22 at 2040, On hold since Tue08/05/2022 at 1056 until manually unheld 215 (Given - Provider: Yamila Galvez RN) 0818 (Not Given - Provider: Ophelia Duran RN - Reason: Other - Comment: pt wants all meds at HS)1056 (Held by Provider - Provider: Renaldo Hernandez NP - Reason: Change in Patient Status) 0900 (Dose Auto Held - Provider: Renaldo Hernandez NP)1331 (Unheld by Provider - Provider: Renaldo Hernandez NP) metoprolol XL (TOPROL-XL) extended release tablet 25 mg (CANCELED) 25 mg, oral, Daily, First dose on Tue08/04/22 at 2040, Tablets that are scored may be split, but do not crush, chew, dissolve, open or otherwise manipulate tablet/capsule., On hold since Tue08/05/2022 at 1041 until manually unheld 215 (Given - Provider: Yamila Galvez RN) 0819 (Not Given - Provider: Ophelia Duran RN - Reason: Other - Comment: pt request all meds at HS)1041 (Held by Provider - Provider: Renaldo Hernandez NP - Reason: Change in Patient Status) 0900 (Dose Auto Held - Provider: Renaldo Hernandez NP)0905 (Unheld by Provider - Provider: Stefany Winkler DO) sodium chloride 0.9% flush 0.5-20 mL 0.5-20 mL, intra-catheter, Every 8 hours scheduled, First dose on Tue08/04/22 at 2200, Flush volume based on line type and size. , Indications: Flushing 2153 (Not Given - Provider: Yamila Galvez RN - Reason: Other) 0754 (Canceled Entry - Provider: Tila Huff, RN)1336 (Given - Provider: Ophelia Duran RN)2101 (Given - Provider: Tila Huff RN) 0516 (Given - Provider: Tila Huff RN)1403 (Given - Provider: Ophelia Duran RN) PRN Medication Order 08/04/2022 08/05/2022 08/06/2022 Carrier Fluids for Secondary Infusion - 0.9% Sodium Chloride 30 mL, intravenous, As needed, For priming tubing and/or flushing, Starting on Tue08/04/22 at 2037, 0-250 ml/hr to flush line after IV infusions when no maintenance IV ordered. Infuse 30mL at the same rate as the secondary infusion. Run as primary IV, not intended for KVO. docusate sodium (COLACE) capsule 100 mg 100 mg, oral, 2 times daily PRN, constipation, Starting on Tue08/04/22 at 2037, Indications: constipation hydrocortisone 2.5 % ointment topical, 2 times daily PRN, rash, irritation, Starting on Tue08/05/22 at 1102, Apply to affected area: rash, back hydrOXYzine (ATARAX) tablet 25 mg 25 mg, oral, 4 times daily PRN, anxiety, Starting on Tue08/05/22 at 1207 1410 (Given - Provider: Ophelia Duran RN) ondansetron (ZOFRAN) injection 4 mg(Linked Group 1) 4 mg, intravenous, Administer over 2 Minutes, Every 6 hours PRN, nausea, vomiting, if not tolerating PO, Starting on Tue08/04/22 at 2037, Indications: Nausea and Vomiting ondansetron ODT (ZOFRAN-ODT) disintegrating tablet 4 mg(Linked Group 1) 4 mg, oral, Every 6 hours PRN, nausea, vomiting, Starting on Tue08/04/22 at 2037, Indications: Nausea and Vomiting sodium chloride 0.9% flush 0.5-20 mL 0.5-20 mL, intra-catheter, As needed, line care, Starting on Tue08/04/22 at 2037, Flush volume based on line type and size. Flush before and after each use. , Indications: Flushing Linked Groups Order Group 1: ondansetron ODT (ZOFRAN-ODT) disintegrating tablet 4 mgJump to med 4 mg, oral, Every 6 hours PRN, nausea, vomiting, Starting on Tue08/04/22 at 2037, Indications: Nausea and Vomiting Or ondansetron (ZOFRAN) injection 4 mgJump to med 4 mg, intravenous, Administer over 2 Minutes, Every 6 hours PRN, nausea, vomiting, if not tolerating PO, Starting on Tue08/04/22 at 2037, Indications: Nausea and Vomiting documented in this encounter Orders Medications Ordered That Timoteo ht Not Have Been Administered Count Last Ordered Date First Ordered Date escitalopram (LEXAPRO) tablet 20 mg 2 08/0608/04/2022 hydrocortisone 2.5 % ointment 1 08/05/2022 Carrier Fluids for Secondary Infusion - 0.9% Sodium Chloride 1 08/04/2022 docusate sodium (COLACE) capsule 100 mg 1 0 08/04/2022 ondansetron (ZOFRAN) injection 4 mg 1 08/04 ondansetron ODT (ZOFRAN-ODT) disintegrating tablet 4 mg 1 08/04/2022 sodium chloride 0.9% flush 0.5-20 mL 1 07/26 Diet Count Last Ordered Date First Orde red Date ADULT DISCHARGE DIET 1 08/06/2022 Nursing Count Last Ordered Date First Orde red Date DISCHARGE ACTIVITY 1 08/06/2022 DISCHARGE CALL PROVIDER 8 08/06/2022 DISCHARGE INSTRUCTIONS 1 08/06/2022 ORTHOSTATIC BLOOD PRESSURE 1 08/05/2022 TELEMETRY MONITORING 1 08/05/2022 MAINTAIN IV ACCESS 1 08/04/2022 MISCELLANEOUS NURSING CARE ORDER (SPECIFY) 1 08/04/2022 Consult Count Last Ordered Date First Orde red Date CONSULT TO BEHAVIORAL HEALTH [facility] 2 023 08/05/2022 IP CONSULT TO CARDIOLOGY 1 08/04/2022 IV Count Last Ordered Date First Orde red Date INSERT PERIPHERAL IV 1 08/04/2022 SALINE LOCK IV 1 08/04/2022 Admission Count Last Ordered Date First Orde red Date ADMIT TO INPATIENT 1 08/04/2022 Discharge Count Last Ordered Date First Orde red Date DISCHARGE PATIENT 1 08/06/2022 CORE MEASURES Count Last Ordered Date First Ord ered Date REASON FOR NO VTE PROPHYLAXIS AT ADMISSION 1 08/04/2022 documented in this encounter Care Teams Air Pollution Auditor Relationship Specialty Start Date End Date No, Physician PCP - General 01/31/21 Rashaun Benavidez MD [address] [address] Consulting Physician Cardiology 07/08/22 Miscellaneous, Not In File 07/08/22 documented as of this encounter
--- OUTSIDE RECORDS SUMMARY | 2024-03-13 02:22 | XMS_ITS | Encounter Summary ---
Author Organization [facility] Healthcare Address [address] [place] [address] Care Team Providers Care Security Guard Supervisor Name Role Phone No, Physician Primary Care Provider [phone] Rashaun Benavidez MD Unavailable [phone] Miscellaneous, Not In File Unavailable Unava ilable Encounter Details Date Type Department Care Team (Late st Contact Info) Description 09/03/2023 Ancillary Procedure [facility] Outside Films Social History [...] week 08/06/2022 How often do you attend [facility] or restorationist services? Never 08/06/2022 Do you belong to any clubs o r organizations such as zoroastrianism groups, unions, fraternal or athletic groups, or [...] place to sleep or slept in a alf (including now)? No 08/06/2022 Personal Safety Answer Date Recorded Have you ever been in or are you currently in a harmful physical or emotional relationship or is someone making you feel afraid or unsafe? 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 us Not In File Miscellaneous IMG XR PROCEDURES Rachna l Result [facility] documented in this encounter Visit Diagnoses Not on filedocumented in this encounter Care Teams Security Guard Supervisor Relationship Specialty Start Date End Date No, Physician PCP - General 01/31/21 Rashaun Benavidez MD [address] [address] Consulting Physician Cardiology 07/08/22 Miscellaneous, Not In File 07/08/22 documented as of this encounter
--- OUTSIDE RECORDS SUMMARY | 2024-03-13 02:22 | XMS_ITS | Encounter Summary ---
Author Organization [facility] Healthcare Address [address] [place] [address] Care Team Providers Care Kindergarten Teacher Name Role Phone No, Physician Primary Care Provider [phone] Rashaun Benavidez MD Unavailable [phone] Miscellaneous, Not In File Unavailable Unava ilable Encounter Details Date Type Department Care Team (Late st Contact Info) Description 09/12/2023 [facility] Post Discharge Follow up phone call [address] [address] Yaa Bishop, ZANE Social History Tobacco Use Types Packs/Day Years Used Date Smoking Tobacco: Never Smokeless Tobacco: Never Alcohol Use Standard Drinks/Week Comments Not Currently 0 (1 standard drink = 0.6 oz pur e alcohol) [facility] Utilities Answer Date Recorded In the past 12 months has e electric, gas, oil, or water company threatened [...] week 09/05/2023 How often do you attend buddhism or islam serv ices? Never 09/05/2023 Do you belong to any clubs o r organizations such as buddhism groups, unions, fraternal or athletic groups, or [...] place to sleep or slept in a care home (including now)? No 08/06/2022 Housing Stability [...] any time in the past 12 m [facility], were you homeless or living in a care home (including now)? No 09/05/2023 Personal Safety Answer Date Recorded Have you ever been in or are you currently in a harmful physical or emotional relationship or is someone making you feel afraid or unsafe? 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 Gender Identity Not on file Sexual Orientation Not on file documented as of this encounter Plan of Treatment Not on file documented as of this encounter Visit Diagnoses Not on filedocumented in this encounter Additional Health Concerns Infection Onset Date Last Indicated Resolved Time MRSA Comment:Wound from arm - 09/03/2023, 09/04/2023 09/03/2023 03/05/2024 documented as of this encounter Care Teams Kindergarten Teacher Relationship Specialty Start Date End Date No, Physician PCP - General 01/31/21 Rashaun Benavidez MD [facility] [address] [place] [id number] Consulting Physician Cardiology 07/08/22 Miscellaneous, Not In File 07/08/22 documented as of this encounter
--- OUTSIDE RECORDS SUMMARY | 2024-03-13 02:22 | XMS_ITS | Encounter Summary ---
Author Organization [facility] Address [address] [facility] [address] [place] [address] Care Team Providers Care Er Manager Name Role Phone No, Physician Primary Care Provider [phone] Rashaun Benavidez MD Unavailable [phone] Miscellaneous, Not In File Unavailable Unava ilable Reason for Visit * Reason Comments Hospital Follow Up Encounter Details Date Type Department Care Team (Late st Contact Info) Description 08/19/2022 1:30 PM CDT Office Visit [facility] Medical [facility] Cardiology [address] [address] Ronny Barrientos MD [address] [place] [address] Lipid screening (Primary Dx); HFrEF (heart failure with reduced ejection fraction) (CMS/HCC) (HCC); Essential hypertension; Fentanyl use disorder, moderate, dependence (CMS/HCC) (HCC); Anxiety; Electrolyte imbalance; Polymorphic ventricular tachycardia (HCC) Social History Tobacco Use Types Packs/Day [...] often do you attend chur ch or temple services? 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 Gender Identity Not on file Sexual Orientation Not on file documented as of this encounter Last Filed Vital Signs Vital Sign Reading Time Taken Comments Blood Pressure 130/70 08/19/2022 1:15 PM CDT Pulse 64 08/19/2022 1:15 PM CDT Temperature - - Respiratory Rate 16 08/19/2022 1:15 PM CDT Oxygen Saturation 97% 08/19/2022 1:15 PM CDT Inhaled Oxygen Concentration - - Weight 73.9 kg (163 lb) 08/19/2022 1:15 PM CDT Height 165.1 cm (5' 5 ) 08/19/2022 1:15 PM CDT Body Mass Index 27.12 08/19/2022 1:15 PM CDT documented in this encounter Progress Notes * Ronny Barrientos MD - 08/19/2022 1:30 PM CDT Images from the original note were not included. [facility]-Cardiology DATE OF VISIT: 08/19/2022 CHIEF COMPLAINT Chief Complaint Patient presents with Hospital Follow Up CM HPI Gely Allen is a 41 y.o. female with past medical history of nonischemic cardiomyopathy EF 28%,history of polymorphic VT, hypertension, history of fentanyl abuse. We saw the patient when she washospitalized in 06/2022. She initially presented to [facility] with chest pain and palpitations after taking a fentanyl pill. She was found to be in polymorphic VT. She underwent cardiac catheterization which demonstrated normal coronary arteries, possible takotsubo cardiomyopathy. She had recurrent VT and received approximately 8 shocks on 06/30 and was transferred to [facility] on 07/01. 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 She was discharged home on 07/08/2022 with LifeVest and on metoprolol succinate 25 mg p.o. daily and losartan 12.5 mg p.o. b.i.d.. She [facility] on 08/04[facility]2022 with complaints of dizziness and [...] her last use was approximately 1 week ago Follow-up note 08/19/2022: She seen today in the outpatient setting. She was hospitalized in June and was found have polymorphic VT as well as a severe cardiomyopathy. She was on metoprolol and losartan but a recent admission because of dizziness. Both of those medications were stopped. Heart ratewas also low in the 30s. She has been feeling better since discontinuation of these medications. She unfortunately still using fentanyl several times per week. She denies any palpitations at this point and no longer feels her PVCs. Ejection fraction has normalized. Swelling, chest pain, shortness of breath, paroxysmal nocturnal dyspnea orthopnea or edema MEDICAL HISTORY Past Medical History: Diagnosis Date Hypertension Ventricular dysfunction Social History Tobacco Use Smoking status: Never Smokeless tobacco: Never Substance and Sexual Activity Drug use: Not Currently Types: Amphetamines, Benzodiazepines, Fentanyl, Opioid Sexual activity: Defer Alcohol Use: Not At Risk (07/01/2022) AUDIT-C Frequency of Alcohol Consumption: Never Average Number of Drinks: Not on file Frequency of Binge Drinking: Never History reviewed. No pertinent family history. MEDICATIONS Medication List Accurate as of August 19, 2022 1:43 PM. If you have any questions, ask your nurse or doctor. CONTINUE taking these medications escitalopram 20 mg tablet Commonly known as: LEXAPRO Take 1 tablet (20 mg total) by mouth nightly hydrOXYzine 25 mg tablet Commonly known as: ATARAX Take 1 tablet (25 mg total) by mouth 4 (four) times a day as needed for anxiety ALLERGIES Allergies Allergen Reactions Sumatriptan Anaphylaxis Reaction: ANAPHYLAXIS Sulfa (Sulfonamide Antibiotics) Rash Amoxicillin Rash Reaction: RASH REVIEW OF SYSTEMS Review of Systems Constitutional: Negative for weight gain and weight loss. HENT: Negative for hearing loss. Eyes: Negative for blurred vision and visual disturbance. Cardiovascular: Negative for chest pain, claudication, dyspnea on exertion, irregular heartbeat, leg swelling, near-syncope, orthopnea, palpitations, paroxysmal nocturnal dyspnea and syncope. Respiratory: Negative for cough, hemoptysis, shortness of breath, snoring, sputum production and wheezing. Endocrine: Negative for cold intolerance, heat intolerance and polyuria. Hematologic/Lymphatic: Does not bruise/bleed easily. Skin: Negative for color change and rash. Musculoskeletal: Negative for falls, joint pain, joint swelling and myalgias. Gastrointestinal: Negative for abdominal pain, heartburn, nausea and vomiting. Genitourinary: Negative for dysuria. Neurological: Negative for dizziness, focal weakness, headaches, light- headedness, numbness and weakness. Psychiatric/Behavioral: Negative for depression. The patient is nervous/anxious. Allergic/Immunologic: Negative for environmental allergies. PHYSICAL EXAM Blood pressure 130/70, pulse 64, resp. rate 16, height 165.1 cm (5' 5 ), weight 73.9 kg (163 lb), SpO2 97 %. Body mass index is 27.12 kg/m??. Physical Exam Vitals reviewed. Constitutional: Appearance: Normal appearance. HENT: Head: Normocephalic and atraumatic. Nose: Nose normal. Eyes: General: No scleral icterus. Conjunctiva/sclera: Conjunctivae normal. Cardiovascular: Rate and Rhythm: Normal rate and regular rhythm. Pulses: Intact distal pulses. Heart sounds: Normal heart sounds. No murmur heard. No friction rub. No gallop. Pulmonary: Effort: Pulmonary effort is normal. No respiratory distress. Breath sounds: Normal breath sounds. No wheezing or rales. Chest: Chest wall: No tenderness. Abdominal: General: Bowel sounds are normal. There is no distension. Palpations: Abdomen is soft. Tenderness: There is no abdominal tenderness. Musculoskeletal: General: Normal range of motion. Cervical back: Neck supple. Skin: General: Skin is warm and dry. Neurological: Mental Status: She is alert and oriented to person, place, and time. Psychiatric: Mood and Affect: Mood normal. LABS AND OTHER DIAGNOSTIC TESTS Lab Results Component Value Date WBC 6.8 08/04/2022 HGB 11.3 (L) 08/04/2022 HCT 35.2 (L) 08/04/2022 MCV 86.9 08/04/2022 Chemistry Component Value Date/Time SODIUM 139 08/04/2022 1403 POTASSIUM 4.0 08/04/2022 1403 CHLORIDE 105 08/04/2022 1403 CO2 23 08/04/2022 1403 BUNSER 15 08/04/2022 1403 CREATININE 0.93 08/04/2022 1403 GLUCOSE 115 08/04/2022 1403 Component Value Date/Time CALCIUM 9.4 08/04/2022 1403 ALKPHOS 76 08/04/2022 1403 AST 16 08/04/2022 1403 ALT 8 08/04/2022 1403 BILITOT 0.3 08/04/2022 1403 No results found for: CHOL No results found for: HDL No results found for: LDL] No results found for: LDLCALC No results found for: TRIG No results found for: CHOLHDL EKG Echo 07/02/2022 Normal left ventricular wall thickness. Severe global left ventricular systolic dysfunction. There is pseudonormal diastolic dysfunction Grade II. Ejection fraction is visually estimated at 28 %. These segments of the LV are hypokinetic mid anterior segment, apical segment, apical lateral segment and apical inferior segment. Picture could be compatible with Takotsubo or ischemic Cardiomyopathy. ECHO 08/05/2022 Normal left ventricular systolic function with no focal wall motion abnormalities. Normal left ventricular size. Mild concentric left ventricular hypertrophy. Ejection fraction is measured at 56 %. ASSESSMENT Diagnoses and all orders for this visit: Lipid screening (Primary) - POCT lipid panel HFrEF (heart failure with reduced ejection fraction) (CMS/HCC) (HCC) Normalized Essential hypertension At goal Fentanyl use disorder, moderate, dependence (CMS/HCC) ([facility]) Ongoing Anxiety Significant Electrolyte imbalance Replaced Polymorphic ventricular tachycardia ([facility]) No recurrence PLAN/RECOMMENDATIONS Counseling performed regarding avoidance of fentanyl. In office lipid panel today showed total cholesterol 100, HDL 35, LDL 53, triglycerides 59 Continue to hold metoprolol and losartan at this point. She has normalization of her ejection fraction. She has follow-up with Dr. Benavidez in a couple of weeks which she is encouraged to keep. Potassium should be greater than 4 and magnesium greater than 2. Blood pressure is at goal. Follow-up in 3 months or sooner as clinically indicated Ronny Barrientos MD, FACC documented in this encounter Plan of Treatment Not on file documented as of this encounter Procedures Procedure Name Priority Date/Time Associated Diagnosis Comments POCT LIPID PANEL Routine 08/19/2022 1:28 PM CDT Lipid screening documented in this encounter Results * POCT lipid panel (08/19/2022 1:28 PM CDT) Cholesterol, POC <100 mg/dL HDL, POC 35 mg/dL Triglycerides, POC 59 mg/dL LDL Cholesterol POC 53.2 mg/dL Chol/HDL Ratio, POC 0 Non-HDL Cholesterol, POC 0 mg/dL Cholesterol Total, POC <100 mg/dL Capillary blood 08/19/2022 1 :28 PM CDT Ronny Barrientos MD POINT OF CARE TEST ORDERA BLES Final Result documented in this encounter Visit Diagnoses Diagnosis Lipid screening- Primary Screening for lipoid disorders HFrEF (heart failure with reduced ejection fraction) (CMS/HCC) (HCC) Essential hypertension Unspecified essential hypertension Fentanyl use disorder, moderate, dependence (CMS/HCC) (HCC) Anxiety Anxiety state, unspecified Electrolyte imbalance Electrolyte and fluid disorders not elsewhere classified Polymorphic ventricular tachycardia (HCC) Paroxysmal ventricular tachycardia documented in this encounter Care Teams Er Manager Relationship Specialty Start Date End Date No, Physician PCP - General 01/31/21 R[facility]un [facility]z [facility] [address] [address] Consulting Physician Cardiology 07/08/22 Miscellaneous, Not In File 07/08/22 documented as of this encounter
--- OUTSIDE RECORDS SUMMARY | 2024-03-13 02:22 | XMS_ITS | Encounter Summary ---
Author Organization [facility] Address [address] [facility] [address] [place] [address] Care Team Providers Care Almond Cutting Machine Tender Name Role Phone No, Physician Primary Care Provider [phone] Rashaun Benavidez MD Unavailable [phone] Miscellaneous, Not In File Unavailable Unava ilable Encounter Details Date Type Department Care Team (Late st Contact Info) Description 07/08/[address] [facility] Cardiology [address] [phone] Lucinda Murcia NP [address] [address] Social History Tobacco Use Types [...] neighbors? More than three times a week 07/05/2022 How often do you get togethe r with friends or relatives? More than three times a week 07/05/2022 How often do you attend chur ch or caodaism services? Patient declined 07/05/2022 Do you belong to any clubs o r organizations such as adventism groups, unions, fraternal or athletic groups, or school groups? Patient declined 07/05/2022 How often do you attend meet ings of the clubs or organizations you belong to? Patient declined 07/05/2022 Are you , , di vorced, , never , or living with a partner? 07/05/2022 AUDIT-C Answer Date Recorded Q1: How often [...] like food, housing, medical care, and heating? Not hard at all 07/05/2022 Hunger Vital Sign Answer Date Recorded Within the past 12 months, y ou worried that your food would run out before you got the money to buy more. Never true 07/06/19 23 Within the past 12 months, t he food you bought just didn't last and you didn't have money to get more. Never true 07/05/2022 PRAPARE - Transportation Answer Date Re corded In the past 12 months, has l ack of transportation kept you from medical appointments or from getting medications? No 06/26 In the past 12 months, has l ack of transportation kept you from meetings, work, or from getting things needed for daily living? No 07/05/2022 Housing Stability Vital Sign Answer Calvin e Recorded In the last 12 months, was t here a time when you were not able to pay the mortgage or rent on time? No 07/05/2022 In the last 12 months, how many places have you lived? 1 07/05/2022 In the last 12 months, was t here a time when you did not have a steady place to sleep or slept in a penitentiary (including now)? No 07/05/2022 Comments No Sex and Gender Information Value Date Recorded Sex Assigned at Not on file Legal Sex Female 3:16 AM MEDICAL LIAISON Gender Identity Not on file Sexual Orientation Not on file documented as of this encounter Miscellaneous Notes * Telephone Encounter - Elin Mancera RN - 07/12/2022 9:12 AM CDT Printed out appointment reminders. Will mail to patient. Advised pt if date/time doesn't work, pt should call the office to reschedule. * Telephone Encounter - Cleopatra Cohen MA - 07/08/2022 4:55 PM CDT Appt's scheduled, called pt to inform but unable to leave a message, will try again * Telephone Encounter - Lucinda Murcia NP - 07/08/2022 12:16 PM CDT Patient currently hospitalized at [facility] but should be discharged home later today after she is fitted with LifeVest (Kestra). Can you please arrange for a hospital follow-up appointment with Dr. Barrientos in the [place] office in 4-6 weeks? She will also need a appointment with Dr. Benavidez in the [place] office in 2-3 months. Thank you! documented in this encounter Plan of Treatment Not on file documented as of this encounter Visit Diagnoses Not on filedocumented in this encounter Care Teams Almond Cutting Machine Tender Relationship Specialty Start Date End Date No, Physician PCP - General 01/31/21 Rashaun Benavidez MD [address] [place] [address] [place] [address] Consulting Physician Cardiology 07/08/22 Miscellaneous, Not In File 07/08/22 documented as of this encounter
--- OUTSIDE RECORDS SUMMARY | 2024-03-13 02:22 | XMS_ITS | Encounter Summary ---
Author Organization [facility] Address [address] [place] [address] Care Team Providers Care Fountain Pen Nibs Inspector Name Role Phone No, Physician Primary Care Provider [phone] Rashaun Benavidez MD Unavailable [phone] Miscellaneous, Not In File Unavailable Unava ilable Encounter Details Date Type Department Care Team (Late st Contact Info) Description 10/13/2023 Orders Only [facility] [address] [place] [address] Anette Apple MD [address] [place] [address] [place] [address] Skin ulcer of upper arm, with fat layer exposed (HCC) (Primary Dx) Social History Tobacco Use Types Packs/Day Years Used Date Smoking Tobacco: Never Smokeless Tobacco: Never Alcohol Use Standard Drinks/Week Comments Not Currently 0 (1 standard drink = 0.6 oz pur e alcohol) [facility] Utilities Answer Date Recorded In the past 12 months has [employer], gas, oil, or water [employer] threatened to shut off services in your home? No 09/05/2023 Social Connection and Isolation Panel [NHANES] A nswer Date Recorded In a typical week, how many times do you talk on the phone with family, friends, or neighbors? Once a week 09/05/2023 How often do you get together with friends or re latives? Once a week 09/05/2023 How often do you attend confucianist or sikh serv ices? 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 Moderate Gram Positive Cocci Comment:Testing performed by : [facility], [address] [place]., [address] Report Final Report: Moderate Mixed microorganisms. Includes the following: Few Pseudomonas aeruginosa (.) [facility] (PRAT[place]HA) Comment:Testing performed by : [facility], [address] [place]., [address] Organism PSEUDOMONAS AERUGINOSA [facility] (PRATIBHA) Organism MIXED MICROORGANISMS. [facility] (PRATIBHA) Tissue (Arm, right) 10/13/2023 11:30 AM CDT 10/13/2023 7:41 PM CDT Narrative [facility] (PRATIBHA) - 10/17/2023 3:09 PM CDT Testing performed by [facility] Microbiology Laboratory ([phone]) Specimens submitted from normally sterile body sites [...] - GENERAL O ALEERAARMEN Final Result [facility] ([place]) [address] [facility] Department [place] [address] documented in this encounter Visit Diagnoses Diagnosis Skin ulcer of upper arm, with fat layer exposed (HCC) Skin ulcer of upper arm, with fat layer exposed (HCC)- Primary documented in this encounter Additional Health Concerns Infection Onset Date Last Indicated Resolved Time MRSA Comment:Wound from arm - 09/03/2023, 09/04/2023 09/03/2023 03/05/2024 documented as of this encounter Care Teams Fountain Pen Nibs Inspector Relationship Specialty Start Date End Date No, Physician PCP - General 01/31/21 Rashaun Benavidez MD [address] [place] [address] Consulting Physician Cardiology 07/08/22 Miscellaneous, Not In File 07/08/22 documented as of this encounter
--- OUTSIDE RECORDS SUMMARY | 2024-03-13 02:22 | XMS_ITS | Encounter Summary ---
Author Organization [facility] Healthcare Address [address] [place] [address] Care Team Providers Care Electrical Assembler Name Role Phone No, Physician Primary Care Provider [phone] Rashaun Benavidez MD Unavailable [phone] Miscellaneous, Not In File Unavailable Unava ilable Encounter Details Date Type Department Care Team (Late st Contact Info) Description 10/20/2023 Orders Only [facility] [address] [place] [address] Anette Apple MD [address] [place] [address] [place] [address] Social History Tobacco Use Types Packs/Day Years Used Date Smoking Tobacco: Never Smokeless Tobacco: Never Alcohol Use Standard Drinks/Week Comments Not Currently 0 (1 standard drink = 0.6 oz pur e alcohol) [facility] Utilities Answer Date Recorded In the past 12 months has [employer], gas, oil, or water [employer] threatened to shut off services in your home? No 09/05/2023 Social Connection and Isolation Panel [NHANES] A nswer Date Recorded In a typical week, how many times do you talk on the phone with family, friends, or neighbors? Once a week 09/05/2023 How often do you get together with friends or re latives? Once a week 09/05/2023 How often do you attend anabaptism or christian serv ices? Never 09/05/2023 Do you belong to any clubs o r organizations such as anabaptism groups, unions, fraternal or athletic groups, or [...] in a snf (including now)? No 08/06/2022 Housing Stability Vital Sign Answer Calvin e Recorded In the last 12 months, was t here a time when you were not able to pay the mortgage or rent on time? No 09/05/2023 In the past 12 months, how m any times have you moved where you were living? 1 09/05/2023 At any time in the past 12 m [facility], were you homeless or living in a snf (including now)? No 09/05/2023 Personal Safety Answer Date Recorded Have you ever been in or are you currently in a harmful physical or emotional relationship or is someone making you feel afraid or unsafe? 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 CONNECTOR PLACER Gender Identity Not on file Sexual Orientation Not on file documented as of this encounter Ordered Prescriptions Prescription Sig Dispense Quantity Refills Last Filled Start Date End Date silver sulfadiazine (SILVADENE, SSD) 1 % cream Apply topically daily To both arms 400 g 1 10/20/2023 4 levoFLOXacin (LEVAQUIN) 500 mg tablet Take 1.5 tablets (750 mg total) by mouth daily for 10 days 15 tablet 10/20/2023 4 documented in this encounter Plan of Treatment Not on file documented as of this encounter Visit Diagnoses Not on filedocumented in this encounter Additional Health Concerns Infection Onset Date Last Indicated Resolved Time MRSA Comment:Wound from arm - 09/03/2023, 09/04/2023 09/03/2023 03/05/2024 documented as of this encounter Care Teams Electrical Assembler Relationship Specialty Start Date End Date No, Physician PCP - General 01/31/21 Rashaun Benavidez MD [facility] [place] [address] [place] [address] Consulting Physician Cardiology 07/08/22 Miscellaneous, Not In File 07/08/22 documented as of this encounter
--- OUTSIDE RECORDS SUMMARY | 2024-03-13 02:22 | XMS_ITS | Encounter Summary ---
Author Organization [facility] Healthcare Address [address] [place] [address] Care Team Providers Care Stone Rougher Name Role Phone No, Physician Primary Care Provider [phone] Rashaun Benavidez MD Unavailable [phone] Miscellaneous, Not In File Unavailable Unava ilable Reason for Visit * Reason Comments Shortness of Breath X1 hour Encounter Details Date Type Department Care Team (Late st Contact Info) Description 07/19/2022 7:24 PM CDT - 07/20/2022 1:42 AM CDT Emergency [facility] Emergency Department [address] [place] [address] [place] [address] [place] [address] Chest pain, unspecified type (Primary Dx) Discharge Disposition: Discharge to home or self [...] often do you attend chur ch or mosque services? Patient declined 07/05/2022 Do you belong [...] slept in a fci (including now)? 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 Gender Identity Not on file Sexual Orientation Not on file documented as of this encounter Last Filed Vital Signs Vital Sign Reading Time Taken Comments Blood Pressure 174/96 07/19/2022 11:45 PM CDT Pulse 115 07/19/2022 11:45 PM CDT Temperature 36.8 ??C (98.3 ??F) 07/19/2022 7:15 PM CD T Respiratory Rate 13 07/19/2022 11:45 PM CDT Oxygen Saturation 98% 07/19/2022 11:45 PM CDT Inhaled Oxygen Concentration - - Weight 79.4 kg (175 lb) 07/19/2022 7:15 PM CDT Height 165.1 cm (5' 5 ) 07/19/2022 7:15 PM CDT Body Mass Index 29.12 07/19/2022 7:15 PM CDT documented in this encounter Discharge Instructions * Discharge Instructions* Wendy Isaac MD - 07/20/2022 12:45 AM CDT Keep your life vest on. No more drugs or alcohol. Return to ER if you develop fast heart rate or chest pain. * Attachments The following attachments cannot be sent through Care Everywhere. * Chest Pain (AfterCare(R) Instructions(ER/ED)) (Bangladeshi) documented in this encounter Medications at Time of Discharge chlordiazePOXIDE (LIBRIUM) 25 mg capsuleIndicatio ns:anxiety Take 1 capsule (25 mg total) by mouth 3 (three) times a day as needed for anxiety or withdrawal symptoms 30 capsule 07/10/2022 3 losartan (COZAAR) 25 mg tablet Take 0.5 tablets (12.5 mg total) by mouth daily 30 tablet 07/09/2022 3 metoprolol XL (TOPROL-XL) 25 mg extended release tablet Take 1 tablet (25 mg total) by mouth daily 30 tablet 1 07/09/2022 3 documented as of this encounter Discharge Disposition Disposition Code Departure Means Destination Comment s Discharge to home or self care documented in this encounter ED Notes * Wendy Isaac MD - 07/19/2022 8:07 PM CDT HPI Chief Complaint Patient presents with Shortness of Breath X1 hour 41 year old female w/ hx of HTN, recent admission (07/01-) for fentanyl overdose c/b Torsades and Takotsubo w/ EF 28%, requiring ICU stay, currently wearing life vest, presents to ER with SOB and palpitations. No shock per life vest per patient. She appears anxious and diaphoretic. No SOB. No active CP currently. Pt denies any drug use since discharge. No significant withdrawal symptoms. Patient History: Patient Active Problem List Diagnosis Date Noted Opioid dependence with withdrawal ([facility]) ([facility]) 03/04/2020 Opioid abuse ([facility]) HFrEF (heart failure with reduced ejection fraction) ([facility]) ([facility]) Ventricular tachycardia ([facility]) 07/01/2022 Past Medical History: Diagnosis Date Hypertension Ventricular dysfunction Past Surgical History: Procedure Laterality Date HYSTERECTOMY History reviewed. No pertinent family history. Social History Tobacco Use Smoking status: Never Smokeless tobacco: Never Vaping Use Vaping status: None Substance and Sexual Activity Alcohol use: Not Currently Drug use: Not Currently Types: Amphetamines, Benzodiazepines, Fentanyl, Opioid Sexual activity: Defer Social History Social History Narrative Not on file Review of Systems Review of Systems Constitutional: Positive for diaphoresis. HENT: Negative. Eyes: Negative. Respiratory: Positive for chest tightness and shortness of breath. Cardiovascular: Positive for chest pain. Gastrointestinal: Negative. Endocrine: Negative. Genitourinary: Negative. Musculoskeletal: Negative. Skin: Negative. Allergic/Immunologic: Negative. Neurological: Negative. Hematological: Negative. Psychiatric/Behavioral: Negative. Breast: Negative. Physical Exam ED Triage Vitals [07/19/22 1915] Temp Pulse Resp BP SpO2 36.8 ??C (98.3 ??F) 110 17 (!) 185/102 97 % Temp src Heart Rate Source Patient Position BP Location FiO2 (%) Tympanic Monitor Sitting Left arm -- Height Height Method Weight Weight Method 1.651 m (5' 5 ) Stated 79.4 kg (175 lb) Stated Physical Exam Vitals and nursing note reviewed. Constitutional: Appearance: She is well-developed. HENT: Head: Normocephalic and atraumatic. Mouth/Throat: Mouth: Mucous membranes are moist. Eyes: Extraocular Movements: Extraocular movements intact. Pupils: Pupils are equal, round, and reactive to light. Cardiovascular: Rate and Rhythm: Normal rate and regular rhythm. Pulmonary: Effort: Pulmonary effort is normal. Breath sounds: Normal breath sounds. Chest: Comments: Pt has life vest on. Abdominal: Palpations: Abdomen is soft. Musculoskeletal: General: Normal range of motion. Cervical back: Normal range of motion. Skin: General: Skin is warm. Capillary Refill: Capillary refill takes less than 2 seconds. Neurological: General: No focal deficit present. Mental Status: She is alert and oriented to person, place, and time. Psychiatric: Mood and Affect: Mood normal. Behavior: Behavior normal. MDM Medical Decision Making Medical Decision Making: Summary: 41 year old female w/ hx of HTN, recent torsades/Vtachy s/p from fentanyl overdose s/p ICUstay here at [facility], wearing a life vest, here with SOB and palpitations. Pt felt CP and lightheadedness during the episode. She overall is feeling weak and diaphoretic. No shocks via life vest. She denies any drug use since discharge on 07/08/22. No ETOH use. She states her withdrawal symptoms are under control. Differential diagnosis includes, but is not limited to cardiac arrhythmia vs electrolyte abnormality vs opioid withdrawal vs infection vs CHF. By virtue of history and physical, some of these diagnoses can be excluded. Imaging was interpreted by me and notable for: CXR: clear. CT PE protocol negative. Non-ED notes reviewed: recent ICU stay from 07/01-07/08. Additional information obtained from independent historian: boyfriend. The following social determinants of health potentially complicated the patient's course and were considered in my plan of care: PSA Plan: Will get labs including mag, phos, UDS. Will give fluids, pt is sinus tachy in the room at 110s. Results: EKG shows sinus rate of 97, no interval prolongation. QRS narrow. No abnormal rhythm observed. No ischemic changes. No leukocytosis. No electrolyte abnormality. CXR is clear. CT PE negative.Pt HR improved to 80s. Mag sulfate given for mag of 1.9. Disposition: No acute findings. Encouraged patient to keep her life vest on. Encouraged her to stayaway from drugs and ETOH (UDS today showed fentanyl). She has follow up in two weeks. Patient was given the opportunity to ask questions and all questions were answered. Amount and/or Complexity of Data Reviewed Labs: ordered. Radiology: ordered and independent interpretation performed. ECG/medicine tests: ordered. Risk OTC drugs. Prescription drug management. Decision regarding hospitalization. Final diagnoses: Chest pain, unspecified type Wendy Isaac MD 07/20/2241 Wendy Isaac MD 07/20/2242 * Monie Ingram RN - 07/19/2022 7:21 PM CDT Pt presents with shortness of breath for one hour with tightness in her chest. States that she was recently released from hospital after episodes of ventricular tachycardia and now is wearing life vest. Pt states that she has been shocked by life vest recently but not today. documented in this encounter Plan of Treatment Not on file documented as of this encounter Procedures Procedure Name Priority Date/Time Associated Diagnosis Comments TROPONIN T HIGH-SENSITIVITY 2-HOUR Timed 07/19/2022 10:52 PM CDT DRUGS OF ABUSE SCREEN, URINE WITHOUT CONFIRMATION STAT 07/19/2022 10:[address] CHEST PE W CONTRAST ED 10:44 PM CDT XR CHEST 1 VIEW ED 07/19/2022 8:37 PM CDT TROPONIN T HIGH-SENSITIVITY SERIES (BASELINE, 2HR, 4HR, 6HR) STAT 07/19/2022 7:56 PM CDT EGFR STAT 07/19/2022 7:56 PM CDT DIFFERENTIAL AUTO STAT 07/19/2022 7:5 6 PM CDT CBC WITH AUTO DIFFERENTIAL STAT 07/19/2022 7:56 PM CDT PHOSPHORUS Add-On 07/19/2022 7:56 PM CDT MAGNESIUM Add-On 07/19/2022 7:56 PM CDT COMPREHENSIVE METABOLIC PANEL STAT 07/19/2022 7:56 PM CDT ECG 12-LEAD STAT 07/19/2022 7:23 PM CDT documented in this encounter Results * (ABNORMAL) Drugs of Abuse Screen, Urine without Confirmation (07/19/2022 10:52 PM CDT) [facility] Amphetamine, ur Not Detected CutOff 500ng/mL [facility] Comment: Interpretive Data - Amphetamines: ??Samples containing greater than 500 ng/mL d-methamphetamine ??or other cross-reacting amphetamine compounds are reported as positive. ??Amphetamine immunoassays are subject to significant false positive rates due to cross-reactivity of non-amphetamine drugs. Current Interpretive Data was last reviewed 2018. Barbiturates, ur Not Detected CutOff 200ng/mL [facility] Comment: Interpretive Data - Barbiturates: ??Samples [...] 2018. Cocaine, ur Not Detected CutOff 150ng/mL [facility] Comment: Interpretive Data - Cocaine: ??Samples containing greater than 150 ng/mL benzoylecgonine or other cross-reacting compounds are reported as positive. False positive and false negative results are possible. Current Interpretive Data was last reviewed 2018. Fentanyl, Ur Detected(A) Cutoff 1 ng/mL [facility] Comment: Interpretive Data - Fentanyls: ??Samples containing greater than 1 ng/mL fentanyl or other cross-reacting fentanyl compounds are reported as detected. ??False positive and false negative results are possible. Current Interpretive Data was last reviewed 2018. Methadone, ur Not Detected CutOff 300ng/mL [facility] Comment: Interpretive Data - Methadone: ??Samples containing greater than 300 ng/mL d,l-methadone or other cross-reacting compounds are reported as positive. ??False positive and false negative results are possible. Current Interpretive Data was last reviewed 2018. Opiates, ur Not Detected CutOff 300ng/mL [facility] Comment: Interpretive Data - Opiates: ??Samples containing greater than 300 ng/mL morphine or other cross-reacting compounds are reported as positive. ??False positive and false negative results are possible. Current Interpretive Data was last reviewed 2018. Oxycodone, ur Not Detected CutOff 100ng/mL [facility] Comment: Interpretive Data - Oxycodone: ??Samples containing greater than 100 ng/mL oxycodone or other cross-reacting compounds are reported as positive. ??False positive and false negative results are possible. ?? Current Interpretive Data was last reviewed 2018. Phencyclidine, ur Not Detected CutOff 25 ng/mL [facility] Comment: Interpretive Data - Phencyclidine: ??Samples containing greater than 25 ng/mL phencyclidine or other cross-reacting compounds are reported as positive. ??False positive and false negative results are possible. ?? Current Interpretive Data was last reviewed 2018. Urine Creatinine 37 mg/dL [facility] Comment: Interpretive Data Urine Creatinine: < 10 mg/dL is extremely dilute = or > 10 but < 20 mg/dL is dilute = or > 20 mg/dL is normal Current Interpretive Data was last revised on 2017. Urine 07/19/2022 10:5 2 PM CDT 07/19/2022 10:57 PM CDT Narrative [facility] - 07/19/2022 11:22 PM CDT Drug of Abuse screening is performed by immunoassay for medical purposes only. ??This is not to be used for Pain Management purposes. us Wendy Isaac MD LAB URINE ORDERABLES Final Resul t Performing Organization Address [facility] de Phone Number LAURA [address] Department [place] [address] * (ABNORMAL) Troponin T high-sensitivity 2-hour (07/19/2022 10:52 PM CDT) Trop T hs 26(H) <=14 ng/L [facility] Comment: Interpretive Data For further hscTnT resources including the diagnostic algorithm and an aid in interpretation, copy and paste this link: https://nrl.testcatalog.org/show/hsTrop Current Interpretive Data last revised 2020. Trop T hs delta 6 ng/L [facility] Trop T hs interp Equivocal [facility] Blood 07/19/2022 10:5 2 PM CDT 07/19/2022 10:58 PM CDT us Katie WATSON LAB BLOOD ORDERABLES Final Res ult Performing Organization Address [facility] Co de Phone Number LAURA CHAPARRO [address] Department [place] [address] * CT Chest PE (CTA) W Contrast (07/19/2022 10:44 PM CDT) Anatomical Region Laterality Modality Body N/A Computed Tomogra phy 07/19/2022 10:3 3 PM CDT Impressions 07/20/2022 8:12 AM CDT No acute findings No evidence for central pulmonary thrombus Results of the exam that given by Nayely grimes. Electronically signed by: Krystyna Escobar M.D. Narrative 07/20/2022 8:12 AM CDT Examination: CTA chest with contrast, PE protocol. Order Date: 07/19/2022 10:30 PM History: Chest pain, PE suspected, high prob Technique: Transaxial computed tomographic images of the chest were obtained following administration of 75 mL Optiray 350 intravenous contrast according to pulmonary embolism protocol. Coronal and sagittal images were submitted by the technologist. ??3-D rendering, MIP and 3-D reconstruction images were obtained Comparison: 02/29/2020 Findings: The heart size is normal. There is no pericardial effusion. There is no filling defect in the pulmonary arterial branches to suggest pulmonary embolism. There is no enlarged mediastinal or axillary lymphadenopathy. There is no pneumothorax or pleural effusion. There is no suspicious lung nodule or focal pulmonic consolidation. Osseous structures of the chest are intact. Procedure Note Krystnya Escobar MD - 07/20/2022 Examination: CTA chest with contrast, PE protocol. [...] no filling defect in the pulmonary arterial branches to suggest pulmonary embolism. There is no enlarged mediastinal or axillary lymphadenopathy. There is no pneumothorax or pleural effusion. There is no suspicious lung nodule or focal pulmonic consolidation. Osseous structures of the chest are intact. IMPRESSION: No acute findings No evidence for central pulmonary thrombus Results of the exam that given by V rad. Electronically signed by: Krystyna Escobar M.D. Wendy Isaac MD IMG CT PROCEDURES Final Result * XR Chest 1 Vw Portable (07/19/2022 8:37 PM CDT) Anatomical Region Laterality Modality Body, Chest N/A Computed Radiogr aphy 07/19/2022 9:53 PM CDT Impressions 07/19/2022 9:53 PM CDT No active disease. Electronically signed by: Cuauhtemoc Leo M.D. Narrative 07/19/2022 9:53 PM CDT EXAMINATION: XR CHEST 1 VIEW HISTORY: The patient is a 41-year-old female who presents with shortness of breath. ??Comparison made with the previous study dated 01/14/2023. TECHNIQUE: AP portable view of the chest. FINDINGS: Lungs clear. ??Cardiovascular structures unremarkable. Procedure Note Cuauhtemoc Leo MD - 07/19/2022 EXAMINATION: XR CHEST 1 VIEW HISTORY: The patient is a 41-year-old female who presents with shortness of breath. Comparison made with the previous study dated 01/14/2023. TECHNIQUE: AP portable view of the chest. FINDINGS: Lungs clear. Cardiovascular structures unremarkable. IMPRESSION: No active disease. Electronically signed by: Cuauhtemoc Leo M.D. Wendy Isaac MD IMG XR PROCEDURES Final Result * Phosphorus (07/19/2022 7:56 PM CDT) Pathologist [facility] Phosphorus, pl 3.3 2.3 - 4.5 mg/dL [facility] Blood 07/19/2022 7:56 PM CDT 07/19/2022 8:57 PM CDT Wendy Isaac MD LAB BLOOD ORDERABLES Final Resul t Performing Organization Address [facility] Co de Phone Number [facility] [address] [place] [address] * Magnesium (07/19/2022 7:56 PM CDT) [facility] Magnesium 1.9 1.4 - 2.5 mg/dL [facility] Blood 07/19/2022 7:56 PM CDT 07/19/2022 8:57 PM CDT Wendy Isaac MD LAB BLOOD ORDERABLES Final Resul t Performing Organization Address [facility]/ZIP Co de Phone Number [facility] [address] Department [place] [address] * eGFR (07/19/2022 7:56 PM CDT) Pathologist [facility] eGFR 66 mL/min/1. 73 m2 [facility] Comment: Interpretive Data Reference Interval Normal [...] interpretive data was last reviewed 2021. Blood 07/19/2022 7:56 PM CDT 07/19/2022 8:00 PM CDT us Katie WATSON LAB BLOOD ORDERABLES Final Res ult Performing Organization Address City/State/[facility] Co wa Phone Number LAURA [address] Department [place] [address] * Differential, auto (07/19/2022 7:56 PM CDT) Neutrophil abs 6.4 1.7 - 6.5 K/cumm [facility] Imm gran abs 0.0 0.0 - 0.1 K/cumm [facility] Lymphocyte abs 1.5 0.8 - 3.3 K/cumm [facility] Monocyte abs 0.4 0.2 - 0.8 K/cumm [facility] Eosinophil abs 0.1 0.0 - 0.5 K/cumm [facility] Basophil abs 0.0 0.0 - 0.1 K/cumm [facility] Neutrophil pct 75.8 % [facility] Comment: Interpretive Data Percent cell count reference ranges are not reported, since discordance with absolute values may lead to misinterpretation of CBC data. Current Interpretive Data was last revised on 2017. Imm gran pct 0.4 % [facility] Comment: Interpretive Data Percent cell count reference ranges are not reported, since discordance with absolute values may lead to misinterpretation of CBC data. Current Interpretive Data was last revised on 2017. Lymphocyte pct 17.6 % [facility] Comment: Interpretive Data Percent cell count reference ranges are not reported, since discordance with absolute values may lead to misinterpretation of CBC data. Current Interpretive Data was last revised on 2017. Monocyte pct 5.1 % [facility] Comment: Interpretive Data Percent cell count reference ranges are not reported, since discordance with absolute values may lead to misinterpretation of CBC data. Current Interpretive Data was last revised on 2017. Eosinophil pct 0.7 % [facility] Comment: Interpretive Data Percent cell count reference ranges are not reported, since discordance with absolute values may lead to misinterpretation of CBC data. Current Interpretive Data was last revised on 2017. Basophil pct 0.4 % [facility] Comment: Interpretive Data Percent cell count reference ranges are not reported, since discordance with absolute values may lead to misinterpretation of CBC data. Current Interpretive Data was last revised on 2017. Blood 07/19/2022 7:56 PM CDT 07/19/2022 8:00 PM CDT us Katie WATSON LAB BLOOD ORDERABLES Final Res ult [facility] [address] Department [place] [address] * (ABNORMAL) Troponin T high-sensitivity series (baseline, 2hr, 4hr, 6hr) (07/19/2022 7:56 PM CDT) Trop T hs 20(H) <=14 ng/L [facility] Comment: Interpretive Data For further hscTnT resources including the diagnostic algorithm and an aid in interpretation, copy and paste this link: https://nrl.testcatalog.org/show/hsTrop Current Interpretive Data last revised 2020. Blood 07/19/2022 7:5 6 PM CDT 07/19/2022 8:00 PM CDT Wendy Isaac MD LAB BLOOD ORDERABLES Final Resul t [facility] [address] Department [place] [address] * Comprehensive metabolic panel (07/19/2022 7:56 PM CDT) Sodium 138 135 - 145 mmol/L [facility] Potassium, pl 3.4 3.3 - 4.9 mmol/L [facility] Chloride 102 97 - 110 mmol/L [facility] CO2 24 22 - 32 mmol/L [facility] Anion gap 12 2 - 15 mmol/L [facility] BUN 16 8 - 25 mg/dL [facility] Creatinine 1.08 0.60 - 1.10 mg/dL [facility] Glucose 124 70 - 199 mg/dL [facility] Comment: Interpretive Data Fasting glucose >/= 126 [...] interpretive data was last revised 2022. Calcium 9.1 8.5 - 10.3 mg/dL [facility] Bilirubin, total 0.3 0.1 - 1.2 mg/dL [facility] Protein, pl 7.0 6.5 - 8.5 g/dL [facility] Albumin 4.0 3.5 - 5.0 g/dL [facility] Alk phos 84 40 - 130 Units/L [facility] ALT 21 7 - 45 Units/L [facility] AST 26 10 - 45 Units/L [facility] Blood 07/19/2022 7:56 PM CDT 07/19/2022 8:00 PM CDT Wendy Isaac MD LAB BLOOD ORDERABLES Final Resul t Performing Organization Address City/[facility] Co de Phone Number LAURA CHAPARRO [address] [place] [address] * (ABNORMAL) CBC with auto differential (07/19/2022 7:56 PM CDT) WBC 8.4 3.8 - 9.9 K/cumm [facility] Hgb 10.4(L) 11.9 - 15.5 g/dL [facility] Hct 32.3(L) 35.6 - 45.5 % [facility] Plt 288 150 - 400 K/cumm [facility] MPV 10.4 9.1 - 12.3 fL [facility] RBC 3.67(L) 3.90 - 5.20 M/cumm [facility] MCV 88.0 81.3 - 96.4 fL [facility] MCH 28.3 27.1 - 33.3 pg [facility] MCHC 32.2(L) 32.3 - 35.7 g/dL [facility] RDW CV 13.5 11.1 - 14.9 % [facility] RDW SD 43.3 35.7 - 48.1 fL [facility] NRBC abs 0.00 0.00 - 0.01 K/cumm [facility] Blood (Blood, Venous) 07/19/2022 7:56 PM CDT 07/19/2022 8:00 PM CDT Wendy Isaac MD LAB BLOOD ORDERABLES Final Resul t Performing Organization Address City/[facility]/ZIP Co de Phone Number LAURA CHAPARRO [address] Department [place] [address] * ECG 12 lead (07/19/2022 7:23 PM CDT) 07/19/2022 7:23 PM CDT Narrative [facility] - 07/20/2022 5:52 AM CDT Vent Rate: 97 bpm RR Interval: 614 msec NV Interval: 167 msec QRS Duration: 97 msec QT Interval: 298 msec QTC Interval: 353 msec P-R-T Hamel: 6 - 15 - 97 degrees SINUS RHYTHM NONSPECIFIC T-WAVE ABNORMALITY ABNORMAL ECG No change from prior EKG Electronically Signed By: Néstor Norris MD us Wendy Isaac MD ECG ORDERABLES Final Result [facility] documented in this encounter Visit Diagnoses Diagnosis Chest pain, unspecified type- Primary documented in this encounter Administered Medications Inactive Administered Medications - up to 3 most recent administrations Medication Order MAR Action Action Date Dose Rate Site aspirin chewable tablet 324 mg 324 mg, oral, Once, On Tue07/19/22 at 1918, For 1 dose, Indications: Chest PainIndications:Chest Pain Given 07/19/2022 8:05 PM CDT 324 mg ioversoL (OPTIRAY 350) syringe 75 mL 75 mL, intravenous, Once in imaging, contrast, Starting on Tue07/19/22 at 2246, For 1 dose Contrast Given 07/19/2022 10:47 PM CDT 75 mL LORazepam (ATIVAN) tablet 1 mg 1 mg, oral, Once, On Tue07/20/22 at 0044, For 1 dose Given 07/20/2022 12:57 AM CDT 1 mg magnesium sulfate 2 g/50 mL in water (premix) 2 g 2 g, intravenous, Administer over 60 Minutes, Once, On Tue07/19/22 at 2152, For 1 dose New Bag 07/19/2022 10:48 PM CDT 2 g sodium chloride 0.9% bolus 1,000 mL 1,000 mL, intravenous, at 1,000 mL/hr, Administer over 1 Hours, Once, On Tue07/19/22 at 1946, For 1 dose New Bag 07/19/2022 8:07 PM CDT 1,000 mL 1000 mL/hr documented in this encounter Active and Recently Administered Medications Times are shown in CDT. Scheduled Medication Order 07/18/2022 07/19/2022 07/20/2022 aspirin chewable tablet 324 mg (COMPLETED) 324 mg, oral, Once, On Tue07/19/22 at 1918, For 1 dose, Indications: Chest Pain 2004 (Given - Provider: Clover Mchugh, ZANE) LORazepam (ATIVAN) tablet 1 mg (COMPLETED) 1 mg, oral, Once, On Tue07/20/22 at 0044, For 1 dose 0057 (Given - Provid er: Alzia Gallagher, ZANE) magnesium sulfate 2 g/50 mL in water (premix) 2 g (COMPLETED) 2 g, intravenous, Administer over 60 Minutes, Once, On Tue07/19/22 at 2152, For 1 dose 2248 (New Bag - Provider: Clover Mchugh, ZANE)2348 (Stopped - Provider: Aliza Gallagher, ZANE) sodium chloride 0.9% bolus 1,000 mL (COMPLETED) 1,000 mL, intravenous, at 1,000 mL/hr, Administer over 1 Hours, Once, On Tue07/19/22 at 1946, For 1 dose 2006 (New Bag - Provider: Clover Mchugh RN)210 (Stopped - Provider: Aliza Gallagher, ZANE) PRN Medication Order 07/18/2022 07/19/2022 07/20/2022 ioversoL (OPTIRAY 350) syringe 75 mL (COMPLETED) 75 mL, intravenous, Once in imaging, contrast, Starting on Tue07/19/22 at 2246, For 1 dose 2247 (Contrast Given - Provider: Kiki Lin, RT) documented in this encounter Orders Nursing Count Last Ordered Date First Orde red Date MISCELLANEOUS NURSING CARE ORDER (SPECIFY) 07/19/2022 IV Count Last Ordered Date First Orde red Date SALINE LOCK IV 1 07/19/2022 documented in this encounter Care Teams Stone Rougher Relationship Specialty Start Date End Date No, Physician PCP - General 01/31/21 Rashaun Benavidez MD [address] [facility] [address], [place] [address] Consulting Physician Cardiology 07/08/22 Miscellaneous, Not In File 07/08/22 documented as of this encounter
--- OUTSIDE RECORDS SUMMARY | 2024-03-13 02:23 | XMS_ITS | Encounter Summary ---
Author Organization [facility] Healthcare Address [address] [place] [address] Care Team Providers Care Car Pre Cooler Name Role Phone Unavailable Primary Care Provider Unavailabl e Encounter Details Date Type Department Care Team (Latest Contact Info) Description 02/28/2020 7:16 PM CATALYST IMPREGNATOR - 02/28/2020 11:59 PM CATALYST IMPREGNATOR Hospital Encounter [facility] Diagnostic Imaging [address] [place] [address] [place] [id number] [address] Discharge Disposition: Discharge to home or self care Social History Tobacco Use Types Packs/Day Years Used Date Smoking Tobacco: Never Smokeless Tobacco: Never Alcohol Use Standard Drinks/Week Comments Not Currently 0 (1 standard drink = 0.6 oz pur e alcohol) Comments No Sex and Gender Information Value Date Recorded Sex Assigned at Not on file Legal Sex Female 3:16 AM CATALYST IMPREGNATOR Gender Identity Not on file Sexual Orientation Not on file documented as of this encounter Discharge Disposition Disposition Code Departure Means Destination Discharge to home or self care documented in this encounter Plan of Treatment Not on file documented as of this encounter Procedures Procedure Name Priority Date/Time Associated Diagnosis Comments XR CHEST 1 VIEW ED 02/28/2020 7:36 PM CATALYST IMPREGNATOR documented in this encounter Results * XR Chest 1 Vw Portable (02/28/2020 7:36 PM CATALYST IMPREGNATOR) Anatomical Region Laterality Modality Body, Chest N/A Computed Radiogr aphy 02/28/2020 10:3 2 PM CATALYST IMPREGNATOR Impressions 02/28/2020 10:32 PM CATALYST IMPREGNATOR Negative study. Electronically signed by: Cuauhtemoc Leo M.D. [facility] 02/28/2020 10:32 PM CATALYST IMPREGNATOR EXAMINATION: XR CHEST 1 VIEW HISTORY: The patient is a 39-year-old female who presents with shortness of breath. TECHNIQUE: AP portable view of the chest. FINDINGS: Lungs clear. Cardiovascular structures unremarkable. Procedure Note Cuauhtemoc Leo MD - 02/28/2020 EXAMINATION: XR CHEST 1 VIEW HISTORY: The patient is a 39-year-old female who presents with shortness of breath. TECHNIQUE: AP portable view of the chest. FINDINGS: Lungs clear. Cardiovascular structures unremarkable. IMPRESSION: Negative study. Electronically signed by: Cuauhtemoc Leo M.D. Donna Cabral MD IMG XR PROCEDURES Rachna l Result documented in this encounter Visit Diagnoses Not on filedocumented in this encounter
--- OUTSIDE RECORDS SUMMARY | 2024-03-13 02:23 | XMS_ITS | Encounter Summary ---
Author Organization [facility] Healthcare Address [address] [place] [address] Care Team Providers Care P 3 Armament/Ordnance Ima Technician Name Role Phone Unavailable Primary Care Provider Unavailabl e Encounter Details Date Type Department Care Team (Late st Contact Info) Description 06/16/2015 10:25 AM CDT - 06/19/2015 12:33 PM CDT Hospital [place] [id number] [address] Opioid dependence with withdrawal (CMS/HCC); Major depressive disorder, single episode (CMS/HCC); Allergy status to penicillin; Anxiety disorder Social History Tobacco Use Types Packs/Day Years Used Date Smoking Tobacco: Never Assessed Comments Unknown Sex and Gender Information Value Date Recorded Sex Assigned at Not on file Legal Sex Female 3:16 AM PHYSICAL THERAPY RESIDENT Gender Identity Not on file Sexual Orientation Not on file documented as of this encounter Last Filed Vital Signs Vital Sign Reading Time Taken Comments Blood Pressure 119/80 06/18/2015 9:37 PM CDT Pulse 78 06/18/2015 9:37 PM CDT Temperature - - Respiratory Rate - - Oxygen Saturation - - Inhaled Oxygen Concentration - - Weight 83 kg (182 lb 15.7 oz) 06/18/2015 6:01 AM CDT Height 162.6 cm (5' 4.02 ) 06/16/2015 12:07 PM C DT Body Mass Index 31.39 06/16/2015 12:07 PM CDT documented in this encounter Discharge Summaries * ProviderJazmin MD - 06/19/2015 12:00 AM CDT DISCHARGE SUMMARY Patient: MARGY SALDANA Account: [id number] Room No: 503-02 : 1980 Patient Type: IP Attend.: Arslan Funes M.D. Admit Date: 06/16/2015 Dict.: Arslan Funes M.D. Disch. Date: 06/19/2015 Principal Diagnoses: 1. Acute opioid withdrawal. 2. Opioid dependence. Chief Complaint and Brief History of Present Illness: Please see History and Physical. Hospital Course: The patient underwent successful medical stabilization on the [facility] service and is now stable and ready for discharge home. Discharge Medications: Lorazepam 1 mg t.i.d. p.r.n. anxiety. Activity: As tolerated. Discharge Diet: As tolerated. Followup Appointment: As per [facility]. Electronically Authenticated by: Arslan Funes MD On 06/20/2015 06:39 AM CDT Kaity Cordero/ct TD: 06/20/2015 02:24 documented in this encounter H&P Notes * ProviderJazmin MD - 06/16/2015 12:00 AM CDT HISTORY AND PHYSICAL Patient: MARGY SALDANA Account: [id number] Room No: 503-02 : 1980 Patient Type: IP Attend.: Arslan Funes M.D. Admit Date: 06/16/2015 Dict.: Arslan Funes M.D. Disch. Date: REASON FOR ADMISSION Relapse of opioid dependence and acute opioid withdrawal. CHIEF COMPLAINT AND BRIEF HISTORY OF PRESENT ILLNESS This is a very pleasant 34-year-old female who had previously been in the [facility] and did well for an extended period of time and then relapsed. She was admitted to [facility] with symptoms of acute opioid withdrawal. She began using again and last used the day before admission and was admitted with symptoms of nausea, vomiting and diarrhea, changes in temperature, some muscle aches as well as having goose bumps, nasal congestion, tremors, tearing, sweating and yawning. Since admission, she has been started on a methadone taper and other medications for symptomatic relief. She was feeling somewhat better this morning. ALLERGIES Amoxicillin and Imitrex. MEDICATIONS AT HOME Currently none. PAST MEDICAL HISTORY Depression and anxiety. SOCIAL HISTORY She does have children that her parents are looking after. She has drank some beer in the past. She is not a cigarette smoker. FAMILY HISTORY Noncontributory. REVIEW OF SYSTEMS She denies fever, ear or throat pain, neck pain or stiffness, chest pain or shortness of breath, constipation, dysuria, hematuria, focal weakness or paresthesias, skin rashes, leg swelling or headache. PHYSICAL EXAMINATION VITAL SIGNS: Temperature was 97.8, pulse 65, respirations were 16, blood pressure 98/59, sating 96% on room air. GENERAL: She appears fatigued but otherwise in no acute distress. Her respirations are not labored. HEENT: Sclerae are nonicteric. Oropharynx is dry. NECK: Supple with no adenopathy or thyromegaly. HEART: Regular rhythm without murmurs. LUNGS: Clear anteriorly without wheezes or crackles. ABDOMEN: Her belly is soft and nontender with no obvious hepatosplenomegaly. EXTREMITIES: No cyanosis, clubbing or edema. NEUROLOGIC: She is alert and appropriate. Her speech is clear and she can move all four extremities without difficulty. LABORATORY AND X-RAY Her white cell count is 9, hemoglobin 12, hematocrit 38, platelets are 296,000, sodium 135, potassium 3.7, chloride 106, bicarbonate 23, creatinine 1.0. BUN was 11. Glucose was 145. Liver function tests were normal. Coagulation studies were normal. Amylase and lipase were normal. Ethanol level was negative. HIV test was negative. test was negative. UA was negative. ASSESSMENT 1. Acute opioid withdrawal. 2. Opioid dependence. PLAN Continue medical stabilization on the [facility] Service with a methadone taper and other medications for symptomatic relief. She remains stable at this time. Electronically Authenticated by: Arslan Funes MD On 06/17/2015 08:32 AM CDT Arslan Funes M.D. ESSIE/peggy TD: 06/17/2015 07:56 documented in this encounter Plan of Treatment Not on file documented as of this encounter Procedures Procedure Name Priority Date/Time Associated Diagnosis Comments DISCHARGE LABORATORY CUMULATIVE REPORT 06/19/2015 SERUM HEPATITIS C GENOTYPE Routine 06/16/2015 2:38 PM CDT SERUM HUMAN IMMUNODEFICIENCY VIRUS Routine 06/16/2015 12:17 PM CDT SERUM ETHANOL Routine 06/16/2015 12:17 PM CDT PLASMA PROTHROMBIN TIME (PT) Routine 06/16/2015 12:17 PM CDT PLASMA PARTIAL THROMBOPLASTIN TIME (PTT) Routine 06/16/2015 12:17 PM CDT PLASMA LIPASE Routine 06/16/2015 12:17 PM CDT PLASMA COMPREHENSIVE METABOLIC PANEL Routine 06/16/2015 12:17 PM CDT PLASMA AMYLASE Routine 06/16/2015 12:17 PM CDT BLOOD CELL COUNT (CBC), MORPHOLOGIC EXAM Routine 06/16/2015 12:17 PM CDT URINE DRUG SCREEN Routine 06/16/2015 11: 10 AM CDT URINE CHORIONIC GONADOTROPIN (HCG) Routine 06/16/2015 11:10 AM CDT URINE ANALYSIS AND MICROSCOPY Routine 06/16/2015 11:10 AM CDT documented in this encounter Results * DISCHARGE LABORATORY CUMULATIVE REPORT (06/19/2015) Narrative 06/19/2015 Ordered by an unspecified provider. us Historical Provider LAB BLOOD ORDERABLES Rachna l Result * Serum Hepatitis C genotype (06/16/2015 2:38 PM CDT) Pathologist [facility] HCV genotype Undetected Undetected HISTO RICAL RESULTS Comment: Assay failed to detect HCV RNA. This assay is not intended for HCV RNA detection purposes. ADDITIONAL INFORMATION This test was performed using the Stephen RealTime HCV Genotype II assay ([employer] [place], [place]). Serum 06/16/2015 2:38 PM CDT Narrative HISTORICAL RESULTS - 06/18/2015 5:13 PM CDT Test performed at [facility] Medicine [facility] Pathology, [address] [place] [address], [facility], [address]. Arslan Funes MD LAB BLOOD ORDERABLES Final Resu lt HISTORICAL RESULTS * (ABNORMAL) Plasma comprehensive metabolic panel (06/16/2015 12:17 PM CDT) Pathologist [facility] BUN 11 8 - 24 3939 HISTORICAL RESULTS Glucose 145 70 - 199 3939 HISTORICAL RESULTS Sodium 135 135 - 145 6278 HISTORICAL RESULTS K, pl 3.7 3.5 - 5.1 6278 HISTORICAL RESULTS Chloride 106 100 - 114 6278 HISTORICAL RESULTS CO2 23 22 - 32 6278 HISTORICAL RESULTS Creatinine 1.08 0.60 - 1.30 3939 HISTORICAL RESULTS AST 19 7 - 40 2000 HISTORICAL RESULTS ALT 13 1 - 45 2001 HISTORICAL RESULTS Alk phos 69 30 - 110 2000 HISTORICAL RESULTS Calcium 8.7 8.4 - 10.5 3939 HISTORICAL RESULTS Bilirubin 0.70 0.10 - 1.30 3939 HISTORICAL RESULTS Protein, pl 5.9(L) 6.0 - 8.3 3944 HISTORICAL RESULTS Alb 3.4 3.2 - 4.8 3944 HISTORICAL RESULTS Globulin 2.5 2.0 - 4.3 3944 HISTORICAL RESULTS A. gap 10 8 - 16 6278 HISTORICAL RESULTS eGFR 58 90 - 200 ml/min/1.7 3 m2 HISTORICAL RESULTS Comment: If this individual is -[place], multiply result by 1.21 Repeated results of less than 60 is indicative of chronic kidney disease. MDRD formula has not been validated on individuals greater than 70 years old. Plasma 06/16/2015 12:1 7 PM CDT us Arslan Funes MD LAB BLOOD ORDERABLES Final Resu lt HISTORICAL RESULTS * Blood cell count (CBC), morphologic exam (06/16/2015 12:17 PM CDT) WBC 9.0 3.8 - 9.8 K/cumm HISTORICAL RESULTS RBC 4.61 4.20 - 5.20 M/cumm HISTORICAL RESULTS Hgb 12.6 12.0 - 15.0 g/dl HISTORICAL RESULTS Hct 38.7 37.0 - 47.0 % HISTORICAL RESULTS MCV 83.9 82.0 - 96.0 fl HISTORICAL RESULTS MCH 27.3 27.0 - 32.0 pg HISTORICAL RESULTS MCHC 32.6 29.0 - 35.0 g/dl HISTORICAL RESULTS Platelets 296 150 - 450 K/cumm HISTORICAL RESULTS RDW 40.4 36.4 - 46.3 fl HISTORICAL RESULTS Rdw 13.3 11.5 - 14.5 % HISTORICAL RESULTS MPV 10.5 8.6 - 12.6 fl HISTORICAL RESULTS Neutrophils 72.8 42.0 - 85.0 % HISTORICAL RESULTS Neutrophils, abs 6.6 2.1 - 8.5 K/cumm HISTORICAL RESULTS Lymphocytes 19.4 16.0 - 52.0 % HISTORICAL RESULTS Lymphocytes, abs 1.8 0.8 - 5.2 K/cumm HISTORICAL RESULTS Monos 5.4 1.0 - 13.0 % HISTORICAL RESULTS Monocytes, absolute 0.5 0.0 - 1.3 K/cumm HISTORICAL RESULTS Eosinophils 2.0 0.0 - 7.0 % HISTORICAL RESULTS Eosinophils, abs 0.2 0.0 - 0.7 K/cumm HISTORICAL RESULTS Basophils 0.2 0.0 - 4.0 % HISTORICAL RESULTS Basophils, abs 0.0 0.0 - 0.4 K/cumm HISTORICAL RESULTS Young granulocytes, % 0.2 0.0 - 1.0 % HISTORICAL RESULTS Young granulocyte 0.02 0.00 - 0.10 K/cumm HISTORICAL RESULTS NRBC 0.0 0.0 - 0.2 #/100 WBC HISTORICAL RESULTS NRBC, abs 0.00 0.00 - 0.01 K/cumm HISTORICAL RESULTS Blood specimen (specimen) 06/16/2015 12:17 PM CDT Result [facility] Arslan Funes MD LAB BLOOD ORDERABLES Final Resu lt Performing Organization Address [facility] de Phone Number HISTORICAL RESULTS * Serum Human Immunodeficiency virus [HIV] 1and 2 ag/ab (06/16/2015 12:17 PM CDT) HIV 1 and 2, ag/ab Negative Negative HISTORICAL RESULTS Serum 06/16/2015 12:1 7 PM CDT Result [facility] Arslan Funes MD LAB BLOOD ORDERABLES Final Resu lt Performing Organization Address [facility] de Phone Number HISTORICAL RESULTS * Plasma prothrombin time (PT) (06/16/2015 12:17 PM CDT) Prothrombin time (PT) 12.8 9.5 - 13.0 seconds HISTORICAL RESULTS INR 1.18 0.90 - 1.20 HISTORIC AL RESULTS Plasma 06/16/2015 12:1 7 PM CDT Result [facility] Arslan Funes MD LAB BLOOD ORDERABLES Final Resu lt Performing Organization Address [facility] de Phone Number HISTORICAL RESULTS * Plasma partial thromboplastin time (PTT) (06/16/2015 12:17 PM CDT) APTT 28.6 25.0 - 37.0 seconds HISTORICAL RESULTS Plasma 06/16/2015 12:1 7 PM CDT Arslan Funes MD LAB BLOOD ORDERABLES Final Resu lt Performing Organization Address [facility] de Phone Number HISTORICAL RESULTS * Serum ethanol (06/16/2015 12:17 PM CDT) Ethanol, sr Absent 0 - 0 3939 HISTORI ALIN RESULTS Serum 06/16/2015 12:1 7 PM CDT Arslan Funes MD LAB BLOOD ORDERABLES Final Resu lt HISTORICAL RESULTS * Plasma lipase (06/16/2015 12:17 PM CDT) Lip 20 20 - 50 2000 HISTORICAL RESULTS Plasma 06/16/2015 12:1 7 PM CDT Arslan Funes MD LAB BLOOD ORDERABLES Final Resu lt HISTORICAL RESULTS * Plasma amylase (06/16/2015 12:17 PM CDT) Sherri, pl 38 28 - 100 2000 HISTORICAL RESULTS Plasma 06/16/2015 12:1 7 PM CDT Arslan Funes MD LAB BLOOD ORDERABLES Final Resu lt Performing Organization Address [facility]/ZIP Co de Phone Number HISTORICAL RESULTS * (ABNORMAL) Urine drug screen (06/16/2015 11:10 AM CDT) Amphetamine, ur Negative Negative HISTORICAL RESULTS Comment: This drug screen is for medical purposes only. It is not intended to be used for legal, employment or forensic purposes. Barbiturates, ur Negative Negative HISTORICAL RESULTS Comment: This drug screen is for medical purposes only. It is not intended to be used for legal, employment or forensic purposes. Benzodiazepine s, ur Negative Negative HISTORICAL RESULTS Comment: This drug screen is for medical purposes only. It is not intended to be used for legal, employment or forensic purposes. Cocaine, ur Negative Negative HISTORIC AL RESULTS Comment: This drug screen is for medical purposes only. It is not intended to be used for legal, employment or forensic purposes. Cannabinoids, ur Negative Negative HISTORICAL RESULTS Comment: This drug screen is for medical purposes only. It is not intended to be used for legal, employment or forensic purposes. Methadone, ur Negative Negative HISTOR ICAL RESULTS Comment: This drug screen is for medical purposes only. It is not intended to be used for legal, employment or forensic purposes. Opiates, qual, ur Positive(A) Negative HISTORICAL RESULTS Comment: This assay is optimized to detect morphine and codeine. ??It has low sensitivity for synthetic opiates. ??This drug screen is for medical purposes only. ??It is not intended to be used for legal, employment or forensic purposes. Phencyclidine, qual, ur Negative Negative HISTORICAL RESULTS Comment: This drug screen is for medical purposes only. It is not intended to be used for legal, employment or forensic purposes. Propoxyphene, ur Negative Negative HISTORICAL RESULTS Comment: This drug screen is for medical purposes only. It is not intended to be used for legal, employment or forensic purposes. Concentration, ur Concentrated HISTORICAL RESULTS Urine 06/16/2015 11:1 0 AM CDT Arslan Funes MD LAB BLOOD ORDERABLES Final Resu Performing Organization Address [facility] de Phone Number HISTORICAL RESULTS * Urine chorionic gonadotropin (HCG) (06/16/2015 11:10 AM CDT) HCG, ur Negative HISTORICAL RESULTS Specific gravity, ur 1.028 HISTORICAL RESULTS Urine 06/16/2015 11:1 0 AM CDT Arslan Funes MD LAB BLOOD ORDERABLES Final Resu Performing Organization Address [facility] de Phone Number HISTORICAL RESULTS * (ABNORMAL) Urine analysis and microscopy (06/16/2015 11:10 AM CDT) Protein, ur 1+(A) Negative HISTORIC AL RESULTS Color, ur Mayra HISTORICAL RESULTS Glucose, ur Negative Negative HISTORIC AL RESULTS Clarity, ur Cloudy(A) Clear HISTORIC AL RESULTS Ketones, ur Negative Negative HISTORIC AL RESULTS pH, ur 5.0 5 - 7 HISTORICAL RESULTS Bilirubin, ur Negative Negative HISTOR ICAL RESULTS Specific gravity, ur 1.028 1.001 - 1.033 HISTORICAL RESULTS U Blood Negative Negative HISTORICAL RESULTS Urobilinogen, quant, ur Normal 0.2 - 1.0 mg/dl HISTORICAL RESULTS Nitrites, ur Negative Negative HISTORI ALIN RESULTS Leukocyte esterase, ur Negative Negative HISTORICAL RESULTS Hyaline casts 10 - 15 /lpf HISTOR ICAL RESULTS WBC, ur 0 - 5 0 - 5 /hpf HISTORICA L RESULTS RBC, ur 0 - 5 0 - 5 /hpf HISTORICA L RESULTS Epithelial cells, ur >75 /hpf HISTORICAL RESULTS Mucus Present HISTORICAL RESULTS Calcium oxalate crystals, ur Present HISTORICAL RESULTS Urine 06/16/2015 11:1 0 AM CDT us Arslan Funes MD LAB BLOOD ORDERABLES Final Resu lt HISTORICAL RESULTS documented in this encounter Visit Diagnoses Diagnosis Opioid dependence with withdrawal (CMS/HCC) (HCC) Major depressive disorder, single episode Major depressive disorder, single episode, unspecified Allergy status to penicillin Anxiety disorder Anxiety state, unspecified documented in this encounter
--- OUTSIDE RECORDS SUMMARY | 2024-03-13 02:23 | XMS_ITS | Encounter Summary ---
Author Organization [facility] Healthcare Address [address] [place] [address] Care Team Providers Care Clinical Lab Scientist Name Role Phone No, Physician Primary Care Provider [phone] Reason for Visit * Reason Comments Chest Pain Encounter Details Date Type Department Care Team (Late st Contact Info) Description 01/31/2021 10:45 PM CDT - 01/31/2021 10:49 PM CDT Emergency [facility] Emergency Department [address] [place], [place] [id number] Discharge Disposition: Left Against Medical Advice Social History Tobacco Use Types Packs/Day Years Used Date Smoking Tobacco: Never Smokeless Tobacco: Never Alcohol Use Standard Drinks/Week Comments Not Currently 0 (1 standard drink = 0.6 oz pur e alcohol) Comments No Sex and Gender Information Value Date Recorded Sex Assigned at Not on file Legal Sex Female 3:16 AM PURCHASING DIRECTOR Gender Identity Not on file Sexual Orientation Not on file documented as of this encounter Last Filed Vital Signs Vital Sign Reading Time Taken Comments Blood Pressure 190/106 01/31/2021 7:45 PM CDT Pulse 96 01/31/2021 5:42 PM CDT Temperature 37.1 ??C (98.7 ??F) 01/31/2021 5:42 PM CD T Respiratory Rate 18 01/31/2021 5:42 PM CDT Oxygen Saturation 98% 01/31/2021 5:42 PM CDT Inhaled Oxygen Concentration - - Weight 77.1 kg (170 lb) 01/31/2021 5:42 PM CDT Height 165.1 cm (5' 5 ) 01/31/2021 5:42 PM CDT Body Mass Index 28.29 01/31/2021 5:42 PM CDT documented in this encounter Discharge Diagnoses Diagnosis Chest pain, unspecified - CHEST PAIN, UNSPECIFIED Shortness of breath - SHORTNESS OF BREATH Palpitations - PALPITATIONS Procedure and treatment not carried out due to patient leaving prior to being seen by health care provider - PROCEDURE AND TREATMENT NOT CARRIED OUT DUE TO PATIENT LEAVING PRIOR TO BEING SEEN BY HEALTH CARE IN documented in this encounter Medications at Time of Discharge chlordiazePOXIDE (LIBRIUM) 25 mg capsuleIndication s:anxiety Take 1 capsule (25 mg total) by mouth 3 (three) times a day as needed for anxiety 30 capsule 03/07/2020 07/08/2022 losartan (COZAAR) 100 mg tablet Take 1 tablet (100 mg total) by mouth daily 30 tablet 11 03/07/2020 07/08/2022 documented as of this encounter Discharge Disposition Disposition Code Departure Means Destination Left Against Medical Advice documented in this encounter ED Notes * Delvin Arreguin RN - 01/31/2021 5:36 PM CDT Pt to ED from home for CP and palpitations. Pt takes BP meds and is compliant, never been told she has abnormal rhythm, but she states her mother does. documented in this encounter Miscellaneous Notes * ED Triage Provider Note - Nelida Rudd PA - 01/31/2021 7:25 PM CDT 40 yo female presents to the ED with mid chest pain, SOB, palpitations, elevated BP that started yesterday, worsening today. Severity is 6/10 and describes it as dull . She did not take anything forher Sx. She denies chills, fever, cough, sore throat, abd pain, N/V/D, headache, dizziness, weakness, numbness, urinary Sx, or any other complaints at this time. Labs, CXR, main This is a medical screening assessment for the pt's initial workup to begin the process. ED provider to re-assess, review workup and set disposition documented in this encounter Plan of Treatment Scheduled Orders Name Type Priority Associated Diagnoses Orde r Schedule Urinalysis reflex to microscopic and culture Urine Microbiology STAT STAT for 1 Occurrences starting 01/31/2021 until 01/31/2021 documented as of this encounter Procedures Procedure Name Priority Date/Time Associated Diagnosis Comments XR CHEST 1 VIEW ED 01/31/2021 8:11 PM CDT ECG 12-LEAD STAT 01/31/2021 5:38 PM CDT documented in this encounter Results * XR Chest 1 Vw Portable (01/31/2021 8:11 PM CDT) Anatomical Region Laterality Modality Body, Chest N/A Computed Radiogr aphy 01/31/2021 10:1 5 PM CDT Impressions 01/31/2021 10:15 PM CDT NO ACUTE PULMONARY CHANGE. Electronically signed by: Poli Le M.D. Narrative 01/31/2021 10:15 PM CDT EXAMINATION: XR CHEST 1 VIEW HISTORY: Chest pain and short of breath ORDER DATE: 01/31/2021 7:30 PM FINDINGS: The lungs are clear of infiltrate. ??The cardiac and mediastinal outlines are unremarkable. There are no significant pleural effusions . No significant abnormalities are noted in the spine or remainder of the bony thorax. Procedure Note Poli Le MD - 01/31/2021 EXAMINATION: XR CHEST 1 VIEW HISTORY: Chest pain and short of breath ORDER DATE: 01/31/2021 7:30 PM FINDINGS: The lungs are clear of infiltrate. The cardiac and mediastinal outlines are unremarkable. There are no significant pleural effusions . No significant abnormalities are noted in the spine or remainder of the bony thorax. IMPRESSION: NO ACUTE PULMONARY CHANGE. Electronically signed by: Poli Le M.D. Nelida WATSON IMWinter XR PROCEDURES Final Result * ECG 12 lead (01/31/2021 5:38 PM CDT) 01/31/2021 5:38 PM CDT Narrative [facility] - 02/01/2021 11:35 AM PURCHASING DIRECTOR Vent Rate: 98 bpm RR Interval: 612 msec IN Interval: 165 msec QRS Duration: 89 msec QT Interval: 310 msec QTC Interval: 365 msec P-R-T [place]: 10 - -1 - 12 degrees SINUS RHYTHM WITH FREQUENT VENTRICULAR PREMATURE COMPLEXES NONSPECIFIC T-WAVE ABNORMALITY ABNORMAL RHYTHM ECG Electronically Signed By: Dr. Romelia rKuse [facility] us Michael Adan MD ECG ORDERABLES Final Resu lt [facility] documented in this encounter Visit Diagnoses Not on filedocumented in this encounter Care Teams Clinical Lab Scientist Relationship Specialty Start Date End Date No, Physician PCP - General 01/31/21 documented as of this encounter
--- OUTSIDE RECORDS SUMMARY | 2024-03-13 02:23 | XMS_ITS | Encounter Summary ---
Author Organization [facility] Address [address] [place] [address] Care Team Providers Care Automation And Control Engineer Name Role Phone No, Physician Primary Care Provider [phone] Encounter Details Date Type Department Care Team (Late st Contact Info) Description 06/30/2022 Orders Only [facility] Cardiology [address] [place] [address] Ronny Barrientos MD [facility] [place] [id number] Social History Tobacco Use Types Packs/Day Years [...] often do you attend chur ch or religion services? Patient declined 07/05/2022 Do you belong to any clubs o r organizations such as orthodox groups, unions, fraternal or athletic groups, or [...] place to sleep or slept in a correction (including now)? 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 Gender Identity Not on file Sexual Orientation Not on file documented as of this encounter Plan of Treatment Not on file documented as of this encounter Procedures Procedure Name Priority Date/Time Associated Diagnosis Comments CARDIOLOGY DOCUMENT SCAN Routine 06/30/2022 documented in this encounter Results * Cardiology Document Scan (06/30/2022) Anatomical Region Laterality Modality Other Ronny Barrientos MD [facility] Final Result documented in this encounter Visit Diagnoses Not on filedocumented in this encounter Additional Health Concerns Infection Onset Date Last Indicated Resolved Time COVID: Suspected 07/01/2022 07/01/2022 07/01/2022 9:37 PM CDT documented as of this encounter Care Teams Automation And Control Engineer Relationship Specialty Start Date End Date No, Physician PCP - General 01/31/21 documented as of this encounter
--- OUTSIDE RECORDS SUMMARY | 2024-03-13 02:23 | XMS_ITS | Encounter Summary ---
Author Organization [facility] Healthcare Address [address] [place] [address] Care Team Providers Care Group Teacher Name Role Phone Unavailable Primary Care Provider Unavailabl e Encounter Details Date Type Department Care Team (Late st Contact Info) Description 03/04/2020 Documentation [facility] Case Management [address] [place] [address] Lawrence Irby RN Social History Tobacco Use Types Packs/Day Years Used Date Smoking Tobacco: Never Smokeless Tobacco: Never Alcohol Use Standard Drinks/Week Comments Not Currently 0 (1 standard drink = 0.6 oz pur e alcohol) Comments No Sex and Gender Information Value Date Recorded Sex Assigned at Not on file 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
--- OUTSIDE RECORDS SUMMARY | 2024-03-13 02:23 | XMS_ITS | Encounter Summary ---
Author Organization [facility] Healthcare Address [address] [place] [address] Care Team Providers Care Core Java Engineer Name Role Phone No, Physician Primary Care Provider [phone] Reason for Visit * Reason Comments Palpitations feels shaky, heart i s jumping around, dull pain in chest x2 days Encounter Details Date Type Department Care Team (Late st Contact Info) Description 02/02/2021 1:[address] R[address] SALESMAN - 02/02/2021 2:10 AM [facility] Emergency Emergency Department [address] [place] [address] Discharge Disposition: Left Against Medical Advice Social History Tobacco Use Types Packs/Day Years Used Date Smoking Tobacco: Never Smokeless Tobacco: Never Alcohol Use Standard Drinks/Week Comments Not Currently 0 (1 standard drink = 0.6 oz pur e alcohol) Comments No Sex and Gender Information Value Date Recorded Sex Assigned at Not on file Legal Sex Female 3:16 AM ROUTE SALESMAN Gender Identity Not on file Sexual Orientation Not on file documented as of this encounter Last Filed Vital Signs Vital Sign Reading Time Taken Comments Blood Pressure 189/100 02/01/2021 4:45 PM ROUTE SALESMAN Pulse 100 02/01/2021 4:45 PM ROUTE SALESMAN Temperature 37.2 ??C (98.9 ??F) 02/01/2021 4:45 PM CS T Respiratory Rate 16 02/01/2021 4:45 PM ROUTE SALESMAN Oxygen Saturation 100% 02/01/2021 4:45 PM ROUTE SALESMAN Inhaled Oxygen Concentration - - Weight 77.1 kg (170 lb) 02/01/2021 4:45 PM ROUTE SALESMAN Height 165.1 cm (5' 5 ) 02/01/2021 4:45 PM ROUTE SALESMAN Body Mass Index 28.29 02/01/2021 4:45 PM ROUTE SALESMAN documented in this encounter Discharge Diagnoses Diagnosis Procedure and treatment not carried out because of patient's decision for unspecified reasons - PROCEDURE AND TREATMENT NOT CARRIED OUT BECAUSE OF PATIENT'S DECISION FOR UNSPECIFIED REASONS documented in this encounter Medications at Time [...] Against Medical Advice documented in this encounter Miscellaneous Notes * ED Triage Provider Note - Nelida Rudd PA - 02/01/2021 5:04 PM ROUTE SALESMAN 40 yo female presents to the ED with mid chest pain, SOB, palpitations, elevated BP that started yesterday, worsening today. Severity is 6/10 and describes it as dull . She did not take anything forher Sx. She denies chills, fever, cough, sore throat, abd pain, N/V/D, headache, dizziness, weakness, numbness, urinary Sx, or any other complaints at this time. Patient came to the ED yesterday for same complaints, LBTC due to waiting time. Labs, main This is a medical screening assessment for the pt's initial workup to begin the process. ED provider to re-assess, review workup and set disposition E SALESMAN documented in this encounter Plan of Treatment Scheduled Orders Name Type Priority Associated Diagnoses Orde r Schedule Urinalysis reflex to microscopic and culture Urine Microbiology STAT STAT for 1 Occurrences starting 02/01/2021 until 02/01/2021 documented as of this encounter Procedures Procedure Name Priority Date/Time Associated Diagnosis Comments ECG 12-LEAD STAT 02/01/2021 4:44 PM ROUTE SALESMAN documented in this encounter Results * ECG 12 lead (02/01/2021 4:44 PM ROUTE SALESMAN) 02/01/2021 4:44 PM ROUTE SALESMAN Narrative [facility] - 02/01/2021 9:47 PM ROUTE SALESMAN Vent Rate: 88 bpm RR Interval: 676 msec [place] Interval: 152 msec QRS Duration: 96 msec QT Interval: 334 msec QTC Interval: 380 msec P-R-T [place]: 29 - 12 - 57 degrees SINUS RHYTHM NONSPECIFIC T-WAVE ABNORMALITY BORDERLINE ECG Electronically Signed By: Dr. Romelia Kruse [facility] us Lenin Koroma MD ECG ORDERABLES Final R esult [facility] documented in this encounter Visit Diagnoses Not on filedocumented in this encounter Care Teams Core Java Engineer Relationship Specialty Start Date End Date No, Physician PCP - General 01/31/21 documented as of this encounter
--- OUTSIDE RECORDS SUMMARY | 2024-03-13 02:23 | XMS_ITS | Encounter Summary ---
Author Organization 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; Transient alteration of awareness; Bathroom of non-institutional residence single-family house as the place of occurrence of the external cause; Other specified events, undetermined intent, initial encounter; Unspecified place or not applicable Social History Tobacco Use Types Packs/Day Years Used Date Smoking Tobacco: Never Assessed Comments Unknown Sex and Gender Information Value Date Recorded Sex Assigned at Not on file Legal Sex Female 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
--- OUTSIDE RECORDS SUMMARY | 2024-03-13 02:23 | XMS_ITS | Encounter Summary ---
Author Organization [facility] Healthcare Address [address] [place] [address] Care Team Providers Care Button Tufting Machine Operator Name Role Phone No, Physician Primary Care Provider [phone] Encounter Details Date Type Department Care Team (Latest Contact Info) Description 01/31/2021 7:25 PM CDT - 01/31/2021 10:44 PM CDT Hospital Encounter [facility] Diagnostic Imaging [address] [place] [address] Discharge Disposition: Discharge to home or self care Social History Tobacco Use Types Packs/Day Years Used Date Smoking Tobacco: Never Smokeless Tobacco: Never Alcohol Use Standard Drinks/Week Comments Not Currently 0 (1 standard drink = 0.6 oz pur e alcohol) Comments No Sex and Gender Information Value Date Recorded Sex Assigned at Not on file Legal Sex Female 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 Nelida WATSON IMG XR PROCEDURES Final Result documented in this encounter Visit Diagnoses Not on filedocumented in this encounter Care Teams Button Tufting Machine Operator Relationship Specialty Start Date End Date No, Physician PCP - General 01/31/21 documented as of this encounter
--- OUTSIDE RECORDS SUMMARY | 2024-03-13 02:23 | XMS_ITS | Encounter Summary ---
Author Organization [facility] Address [address] [place] [address] Care Team Providers Care Elementary Educator Name Role Phone Unavailable Primary Care Provider Unavailabl e Encounter Details Date Type Department Care Team (Late st Contact Info) Description 07/26/2013 2:48 PM CDT - 07/29/2013 1:00 PM CDT Hospital Encounter [facility] Oscar Snow MD 1 [facility] [address] [place] [id number] Drug withdrawal (HCC); Opioid type dependence, continuous abuse (HCC); Bipolar affective disorder (HCC); Personal history of noncompliance with medical treatment, presenting hazards to health; Other nonspecific finding on examination of urine Social History Tobacco Use Types Packs/Day Years Used Date Smoking Tobacco: Never Assessed Comments Unknown Sex and Gender Information Value Date Recorded Sex Assigned at Not on file 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 Gender Identity Not on file Sexual Orientation Not on file documented as of this encounter Last Filed Vital Signs Vital Sign Reading Time Taken Comments Blood Pressure 105/60 07/29/2013 11:00 AM CDT Pulse 99 07/29/2013 11:00 AM CDT Temperature - - Respiratory Rate - - Oxygen Saturation - - Inhaled Oxygen Concentration - - Weight 73.6 kg (162 lb 4.1 oz) 07/26/2013 3:38 P M CDT Height 162.6 cm (5' 4.02 ) 07/26/2013 3:38 PM CD T Body Mass Index 27.84 07/26/2013 3:38 PM CDT documented in this encounter Discharge Summaries * ProviderJazmin MD - 07/29/2013 12:00 AM CDT DISCHARGE SUMMARY - [facility] Patient: MARGY SALDANA Account: [id number] Room No: 3616-01 : 1980 Patient Type: IP Attend.: Keisha Kwon MD Admit Date: 07/26/2013 Dict.: Keisha Kwon MD Disch. Date: 07/29/2013 DISCHARGE DIAGNOSES: 1. Opiate withdrawal syndrome. 2. Bipolar disorder. 3. Positive urinalysis. HISTORY OF PRESENT ILLNESS: This is a 32-year-old white female with a history of bipolar disorder and chronic opiate addiction for the past year. The patient was recently dismissed from a drug detox and withdrawal program in [place], [place] in April of this year. She stated she was clean for approximately two months. Following this she had an argument with her mother, moved in with her father and brother and was exposed again to drugs. She stated that her current usage was approximately 1 gram of intravenous heroin a day, spending up to $100 per day on her drug habit using mostly her child support money. In addition, she has accrued quite a debt due to her habit. She currently lives with her mother whom she states is very supportive, as well as a sister and an aunt who have voiced their support. The patient is currently not employed, is on Medicaid of [place]. Her last drug usage was approximately 36 hours prior to this admission. The patient stated that she had a possession charge against her and for this reason was required to go into a drug program so as to get these charges dropped. She states she is motivated at this time due to the risk of legal action if she does not go through the program. Since her discontinuation of drugs some 36 hours prior to this admission, the patient stated she had rhinitis, fatigue and anxiety. She had also noted increased depression. She was having both leg and back pain, as well as diaphoresis, nausea without vomiting, diarrhea without constipation and no particular abdominal pain. She presents at this time for acute drug withdrawal. HOSPITAL COURSE: 1. Opiate withdrawal syndrome. The patient was admitted. Laboratory on admission included a serum that was negative, a drug screen that was positive for opiates, lipase 93, ethanol less than 10, CMP that was unremarkable with mildly elevated ALT of 73, CBC that was normal with a slightly elevated white count of 10.6, hemoglobin of 13.8, amylase normal at 36. PT and PTT also normal. The patient was admitted. She was started on a methadone taper in accordance to her drug usage. She also received p.r.n. Sinemet, Bentyl, clonidine, Flexeril, Imodium and did fairly well. The patient had no difficulty with any further withdrawal symptoms and was actually much improved by the following day. She continued in the program and by 07/29/13, was believed stable enough for discharge. She was discharged to home with followup plan at [facility] for which she is to call and make this appointment. 2. Bipolar with noncompliance. The patient was restarted on her Wellbutrin SR and Depakote 500 mg a day. She had no further problems throughout this hospital stay. 3. Positive urinalysis. On admission, the patient had a urine that was significant for 1+ bacteria and 10 to 25 epithelial cells. A urine culture returned no significant growth and antibiotics were not started. OPERATIONS AND PROCEDURES performed during this hospital stay: Included the above-mentioned lab, but no other procedures. CONSULTANTS: None. DISCHARGE INSTRUCTIONS: 1. Condition: Stable. 2. Code status: One. 3. Physical exam: Found the patient's lungs to be clear. Cardiac: Regular rate and rhythm. Normal S1 and S2 without any murmurs, S3s or S4s heard. Abdomen was benign, bland with positive bowel sounds. Extremity, bone and joint without any calf pain, edema, cyanosis or clubbing. Neurologically, she was grossly intact. 4. Diet: Regular, as tolerated. 5. Activity: As tolerated. 6. Destination: To home. 7. Medications: Included Wellbutrin SR 150 mg daily and Depakote 500 mg daily. 8. Medication changes: None. 9. Followup appointment: Was to be with her primary care physician, Dr. Flores, in 10 to 14 days', as well as [facility] as scheduled. The patient is to call for this appointment and states she will do so. 10. Pending labs or studies at the time of this dictation: None. 11. Time spent preparing this dictation, discussing the patient's care with her, as well as followup: 40 minutes. Keisha Kwon MD CS/me TD: 07/30/2013 07:35 CC: Dr. Flores Authenticated by Keisha Kwon MD On 07/30/2013 08:53:25 PM documented in this encounter H&P Notes * Provider, MD Jazmin - 07/26/2013 12:00 AM CDT HISTORY AND PHYSICAL Patient: MARGY SALDANA Account: [id number] Room No: 3616-01 : 1980 Patient Type: IP Attend.: Keisha Kwon MD Admit Date: 07/26/2013 Dict.: Keisha Kwon MD Disch. Date: REASON FOR ADMISSION: Opiate withdrawal. HISTORY OF PRESENT ILLNESS: This is a 32-year-old white female with a history of bipolar disorder and chronic opiate addiction for at least the past year. The patient was recently dismissed from a drug detox/withdrawal program in April 2013 in [place], [place]. She states that she was clean for approximately two months. Following this, she had an argument with her mother and moved in with her father and brother. Apparently, her brother uses drugs as well and she began using again. The patient states her current usage is approximately 1 gram of IV heroin a day. She spends $100 per day on her drug habit, using mostly her child support money. In addition, she has accrued quite a debt due to her habit. She currently lives with her mother who she states is very supportive, as well as a sister and an aunt who also have voiced their support. The patient is currently not employed and is on Medicaid of [place]. Her last drug usage was approximately 36 hours ago. The patient states that she has a possession charge out against her, and for this reason was required to go into a drug program so as to get these charges dropped. She states she is motivated at this time due to the risk of legal action if she does not go through the program. Since her discontinuation of drugs some 36 hours ago the patient states she has had rhinitis, fatigue, and anxiety. She states she has been depressed. She is having both leg pain and back pain. She has had diaphoresis, nausea without vomiting, diarrhea without constipation, and no particular abdominal pain. She presents at this time for acute drug withdrawal. REVIEW OF SYSTEMS: Weakness, fatigue, malaise, chills without fever, and diaphoresis. The patient denies any rashes, skin eruptions, or jaundice. She denies any bleeding, easy bruisability, or lymph node enlargement. She has had chronic headaches but denies any syncope, seizures, tremor, or previous stroke. She denies any change in vision or hearing. She is having rhinitis with no sore throat or cough. She denies chest pain, dyspnea on exertion, palpitations, edema, shortness of breath, history of NC, dysrhythmia or hypertension. She denies any history of asthma, COPD, or sleep apnea. She denies any dysphagia. She is having nausea without vomiting, diarrhea without constipation, and no abdominal pain or blood in the stool. She denies any urinary frequency, urgency, dysuria, hesitancy, hematuria, or incontinence. She denies any joint inflammation, redness or heat but has had rather diffuse myalgias. The patient has a history of bipolar but denies any suicidal thoughts or ideations. She has had no previous admissions for psychiatric reasons. She denies diabetes or thyroid disease. SOCIAL HISTORY: The patient currently lives with her mother and her three children. She is A2. She is a graduate from [employer] with a degree in nursing. 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 She has not been working anywhere for the past year. As mentioned, she uses IV heroin 1 gram per day but has been off all heroin for the past 36 hours or so. She denies any tobacco, alcohol, or additional drug use. She denies marijuana. The patient is previously from the father of her children and is currently from her current since February 2012. FAMILY HISTORY: Mother with hypertension. Brother with hypertension and another brother with drug addiction. PAST MEDICAL HISTORY: Bipolar. PAST SURGICAL HISTORY: Total abdominal hysterectomy without bilateral salpingo-oophorectomy for prolapse in 2010, and status post tubal ligation prior to the hysterectomy. ALLERGIES: IMITREX and AMOXICILLIN which causes a rash. CURRENT MEDICATIONS: Depakote 500 mg a day per her primary care physician for bipolar disorder. The patient was on Zyprexa 7.5 mg daily but this was recently changed to Wellbutrin SR 150 mg daily. The patient apparently has picked up the Wellbutrin prescription but has not begun it. She did take her Zyprexa yesterday. PHYSICAL EXAMINATION: The patient is best described as a young obese white female in no particular distress. She has multiple body piercings including the navel which is well-healed. Skin is otherwise unremarkable with no other lesions, and is warm and dry. Head was normocephalic, atraumatic. Pupils are equal, round and reactive to light and accommodation. Extraocular muscles were intact without nystagmus. Oral mucosa was pink and moist without lesions. Dentition fair. Neck was nontender with full range of motion. Thyroid was normal. Carotids were 2+ and equal with fairly good upstrokes. Trachea was in the midline. There was no adenopathy. Lungs were clear throughout. Cardiac exam revealed a regular rate and rhythm. Normal S1 and S2 without any murmurs, S3, or S4 heard. Breast exam was benign without masses or lesions. Abdomen was soft, nontender, nondistended with positive bowel sounds, obese. There were no masses, hernias, bruits, organomegaly, rebound or guarding. Extremities, bones and joints revealed the absence of any edema, cyanosis, or clubbing. Pulses were 2+ and equal. There was no calf tenderness. The patient was oriented x 4. Speech was clear. Cranial nerves II through XII were intact. Motor, sensory and coordination were all tested and found to be normal. The patient was ambulated without difficulty. IMPRESSION: 1. Opiate withdrawal syndrome. The patient has been admitted. She has been started on a methadone taper with p.r.n. Sinemet, Bentyl, clonidine, Flexeril, Imodium, and insulin. The patient states she is motivated at this time to quit, more so than her last admission some two months ago. 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 Additional medications or adjustment in medication will be made pending her progress and response to the above. Obviously, the routine lab work will be done to include a drug screen, urine test, urinalysis, CBC, CMP, ethanol level, lipase, prothrombin time and PTT. Again, further recommendations will be made pending the results of these tests. 2. Bipolar with noncompliance. The patient will be started on her Wellbutrin SR 150 mg daily as well as Depakote 500 mg a day. 3. DVT prophylaxis has been provided. All of the above, including the requirement for the patient to remain on the floor without visitors and no smoking or drug use during the course of her stay, have been discussed in great detail with the patient. She voices her understanding of the same. She will require an inpatient stay and will be in here in excess of two midnights. Time spent: 45 minutes. Keisha Kwon MD CS/ms TD: 07/26/2013 16:21 CC: Kaity Francisco Dr. Authenticated by Keisha Kwon MD On 07/27/2013 06:43:47 AM documented in this encounter Plan of Treatment Not on file documented as of this encounter Procedures Procedure Name Priority Date/Time Associated Diagnosis Comments DISCHARGE LABORATORY CUMULATIVE REPORT Routine 07/29/2013 12:00 AM CDT PLASMA PROTHROMBIN TIME (PT) Routine 07/26/2013 8:21 PM CDT PLASMA PARTIAL THROMBOPLASTIN TIME (PTT) Routine 07/26/2013 8:21 PM CDT SKIN TUBERCULOSIS Routine 07/26/2013 5:2 5 PM CDT SERUM LIPASE Routine 07/26/2013 5:25 PM CDT SERUM COMPREHENSIVE METABOLIC PANEL Routine 07/26/2013 5:25 PM CDT SERUM AMYLASE Routine 07/26/2013 5:25 PM CDT BLOOD WBC CELL MORPHOLOGIC EXAM, AUTO Routine 07/26/2013 5:25 PM CDT BLOOD CELL COUNT (CBC) Routine 4 5:25 PM CDT URINE MICROSCOPY Routine 07/26/2013 4:10 PM CDT URINE DRUG SCREEN Routine 07/26/2013 4:1 0 PM CDT URINE CHORIONIC GONADOTROPIN (HCG) Routine 07/26/2013 4:10 PM CDT URINALYSIS Routine 07/26/2013 4:10 PM CDT SERUM ETHANOL Routine 07/26/2013 12:25 PM CDT MICROBIOLOGY SUMMARY Routine 07/26/2013 12:00 AM CDT documented in this encounter Results * Discharge Laboratory Cumulative Report (07/29/2013 12:00 AM CDT) 07/29/2013 Narrative HISTORICAL RESULTS - 07/30/2013 12:30 AM CDT Patient No: [id number] ? [facility] Patient Name: MARGY SALDANA ? [facility] Age: 32 YRS ?: 1980 ?Sex:F ?[address] )[phone] ?? Adm Dt: 07/26/2013 ?[place] ??[id number] Created: 07/30/2013 ??0030 ?? Pt. Type: I ? Discharge Dt: 07/29/2013 ? Pathologists: Noelle Wallace MD Admit Dr. Gordillo Dr: OSCAR KWON MD ? BLOOD CELL COUNTS ?Collection Date: ?07/26/13 ?Collection Time: ?1725 ? Ref Range: ?? Units: [4.00-10.50] /CMM ? WBC X 10^3 ? 10.59 H [4.20-5.40] ??/CMM ? RBC X 10^6 ?5.34 [12.0-16.0] ??G/DL ? HGB ? 13.8 [37.0-47.0] ??% ?HCT ? 42.1 [77.0-97.0] ??FL ? MCV ? 78.8 [23.0-34.0] ??PG ? MCH ? 25.8 [32.0-36.0] ??% ?MCHC ?32.8 [11.5-14.5] ??% ?RDW ? 13.9 [150-450] ?? /CMM ? PLT X 10^3 ? 293 ?BLOOD CELL DIFFERENTIAL ?Collection Date: ?07/26/13 ?Collection Time: ?1725 ? Ref Range: ?? Units: [53.0-69.0] ??% ?NEUTROPHILS ? 68.9 [25.0-33.0] ??% ?LYMPHOCYTES ? 20.4 L [1.0-13.0] ??% ?MONOCYTES ?6.6 [0.0-10.0] ??% ?EOSINOPHILS ?3.5 [0.0-1.0] ?? % ?BASOPHILS ?0.3 ? /CMM ? A LYMPHOCYTE ? 2.2 [0.0-1.0] ?? % ?IMM GRAN % ? 0.3 [0.00-0.02] ??/CMM ? A IMM GRAN ?0.03 H [1.1-1.9] ?? /CMM ? A MONOCYTE ? 0.7 L [1.4-6.5] ?? /CMM ? A NEUTROPHIL ? 7.3 H [0.0-0.7] ?? /CMM ? A EOSINOPHIL ? 0.4 [0.0-0.2] ?? /CMM ? A BASOPHIL ? 0.0 Footnotes and Symbols: L = Low, H = High ?? CONTINUED ?Page: ?? 1 Patient No: [id number] ? [facility] Patient Name: MARGY SALDANA ? [facility] Age: 32 YRS ?: 1980 ?Sex:F ?[address] )[phone] ?? Adm Dt: 07/26/2013 ?[place], [place] ??[id number] Created: 07/30/2013 ??0030 ?? Pt. Type: I ? Discharge Dt: 07/29/2013 ? Pathologists: Noelle Wallace MD Admit Attend Dr: OSCAR KWON MD ? GENERAL CHEMISTRY ?Collection Date: ?07/26/13 ?Collection Time: ?1725 ? Ref Range: ?? Units: [134-143] ?? MMOL/L ? SODIUM ? 138 [3.4-5.0] ?? MMOL/L ? POTASSIUM ?3.9 [99.0-108.0] MMOL/L ? CHLORIDE ? 100.0 [23.0-32.0] ??MMOL/L ? TOTAL CO2 ? 29.2 ?? [7-14] ?MMOL/L ? ANION GAP ? 13 ??[70-199] ?? MG/DL ?GLUCOSE ?100 f [6.4-8.0] ?? G/DL ? TOTAL PROTEIN ?8.0 [3.3-4.5] ?? G/DL ? ALBUMIN ?3.9 [1.1-1.8] ?A/G RATIO ?1.0 L [8.6-9.8] ?? MG/DL ?CALCIUM ?9.4 [0.0-1.1] ?? MG/DL ?BILI TOTAL ? 0.2 ??[44-125] ?? U/L ?ALK PHOS ? 141 H ?? [5-40] ?U/L ?AST(SGOT) ? 31 f ??[15-70] ?U/L ?ALT(SGPT) ? 73 Hf [6.0-23.0] ??MG/DL ?BUN ? 12.0 ??[10-20] ? B/C RATIO ? 11 Footnotes and Symbols: L = Low, H = High, f = Footnote GLUCOSE (02/27/13 -- Current) Note:The glucose is assumed non fasting Fastin-99 mg/dl Random: 70-199 mg/dl Either a fasting glucose > 126 mg/dL or a random glucose > 200 mg/dL plus symptoms is diagnostic of diabetes when confirmed on another day. Fasting values > 100 mg/dl but < 125 mg/dL are diagnostic of impaired fasting glucose. New reference ranges implemented 02/05/2013. AST(SGOT) (09/06/12 -- Current) AST ??- NOTE REFERENCE RANGE CHANGE ALT(SGPT) (10/17/12 -- Current) ?? CONTINUED ?Page: ?? 2 Patient No: [id number] ? [facility] Patient Name: MARGY SALDANA ? [facility] Age: 32 YRS ?: 1980 ?Sex:F ?[address] )[phone] ?? Adm Dt: 07/26/2013 ?[place] ??[id number] Created: 07/30/2013 ??0030 ?? Pt. Type: I ? Discharge Dt: 07/29/2013 ? Pathologists: Noelle Wallace MD Admit Attend Dr: OSCAR KWON MD ? GENERAL CHEMISTRY ?Collection Date: ?07/26/13 ?Collection Time: ?1725 ? Ref Range: ?? Units: [0.60-1.30] ??MG/DL ?CREATININE ?1.05 f ?07/26/13 1725 eGFR:65 ml/min/1.73sq.m if non -Ugandan. eGFR: >70 ml/min/1.73sq.m if -Ugandan. AVE GFR for 30-39 yr. age group: 107 ml/min/1.73sq.m Calculated using MDRD Equation FOOTNOTE ADDED ON ?? 07/26/13 ?? AT 1957 BY 999 ??[25-115] ?? U/L ?AMYLASE ? 36 f ??[70-400] ?? U/L ?LIPASE ?93 Footnotes and Symbols: f = Footnote AMYLASE (02/11/10 -- Current) PLEASE SEE NEW REFERENCE RANGE ?? CONTINUED ?Page: ?? 3 Patient No: [id number] ? [facility] Patient Name: MARGY SALDANA ? [facility] Age: 32 YRS ?: 1980 ?Sex:F ?[address] )[phone] ?? Adm Dt: 07/26/2013 ?[place] ??[id number] Created: 07/30/2013 ??0030 ?? Pt. Type: I ? Discharge Dt: 07/29/2013 ? Pathologists: Noelle Wallace MD Admit Attend Dr: OSCAR KWON MD ?TOXICOLOGY ?Collection Date: ?07/26/13 ? 07/26/13 ?Collection Time: ?1725 ? 1610 ? Ref Range: ?? Units: [< ? 10] ?? MG/DL ?ALCOHOL ?<10 *f ?07/26/13 1725 <10.O mg/dl = NO ETHANOL DETECTED FOOTNOTE ADDED ON ?? 07/26/13 ?? AT 1957 BY 999 ? URINE DRUG SCREEN [NEGATIVE] ?PCP ?NEGATIVE f [NEGATIVE] ?BENZODIAZEPINES ?NEGATIVE f [NEGATIVE] ?COCAINE ?NEGATIVE f [NEGATIVE] ?AMPHETAMINES ? NEGATIVE f [NEGATIVE] ?THC/MARIJUANA ?NEGATIVE f [NEGATIVE] ?OPIATES ?POSITIVE f [NEGATIVE] ?BARBITURATES ? NEGATIVE f ?? [6.0] ?U PH ?5.0 Footnotes and Symbols: * = Abnormal, f = Footnote ALCOHOL (08/22/09 -- Current) NORMAL: ??NO ETHANOL DETECTED FOR MEDICAL PURPOSES ONLY PCP (12/30/06 -- Current) PCP CUT OFF VALUE 25 ng/ml BENZODIAZEPINES (12/30/06 -- Current) BENZODIAZEPINES CUT OFF VALUE 200 ng/ml COCAINE (12/30/06 -- Current) COCAINE CUT OFF VALUE 300 ng/ml AMPHETAMINES (12/30/06 -- Current) AMPHETAMINES CUT OFF VALUE 1000 ng/ml THC/MARIJUANA (12/30/06 -- Current) THC/MARIJUANA CUT OFF VALUE 50 ng/ml OPIATES (12/30/06 -- Current) OPIATES CUT OFF VALUE 2000 ng/ml BARBITURATES (12/30/06 -- Current) BARBITURATES CUT OFF VALUE 200 ng/ml SCREENING TEST ONLY. ALL POSITIVE URINES WILL BE CONFIRMED UPON DOCTOR REQUEST ONLY. UNCONFIRMED SCREENING RESULTS MUST NOT BE USED FOR NON-MEDICAL PURPOSES. ?? CONTINUED ?Page: ?? 4 Patient No: [id number] ? [facility] Patient Name: MARGY SALDANA ? [facility] Age: 32 YRS ?: 1980 ?Sex:F ?[address] ?? Adm Dt: 07/26/2013 ?[place] ??[id number] Created: 07/30/2013 ??0030 ?? Pt. Type: I ? Discharge Dt: 07/29/2013 ? Pathologists: Noelle Wallace MD Admit Attend Dr: OSCAR KWON MD ? HORMONES ?Collection Date: ?07/26/13 ?Collection Time: ?1610 ? Ref Range: ?? Units: [NEGATIVE] ?U ? NEGATIVE ?COAGULATION ? Units: ?? PROTIME ?INR ?APTT PAT ? Low: ??[11.1-14.4] ? [< ?? 35.4] ? Ref Range: ? SECS ?SECS ? 07/26/132020 ?12.9 ? 1.01 f ? 30.0 Footnotes and Symbols: f = Footnote INR (10/15/99 -- Current) RECOMMENDED RANGES FOR PROTIME INR: NOTE: THE INR HAS BEEN VALIDATED ONLY FOR PATIENTS ON STABLE ORAL ?ANTICOAGULANT THERAPY. ?2.0 - 3.0 ??PROPHYLAXIS OF VENOUS THROMBOSIS (HIGH RISK SURGERY) ?2.0 - 3.0 ??TREATMENT OF VENOUS THROMBOSIS ?2.0 - 3.0 ??TREATMENT OF PULMONARY EMBOLISM ?2.0 - 3.0 ??PREVENTION OF SYSTEMIC EMBOLISM ? TISSUE HEART VALVES ? AMI (TO PREVENT SYSTEMIC EMBOLISM)* ? VALVULAR HEART DISEASE ? ATRIAL FIBRILLATION ?2.5 - 3.5 ??MECHANICAL PROSTHETIC VALVES (HIGH RISK) ?2.0 - 3.0 ??BILEAFLET MECHANICAL VALVE IN AORTIC POSITION *If oral anticoagulant therapy is elected to prevent recurrent myocardial infarction, an INR of 2.5 to 3.5 is recommended, consistent with Food and Drug Administration recommendations. ?? CONTINUED ?Page: ?? 5 Patient No: [id number] ? [facility] Patient Name: MARGY SALDANA ? [facility] Age: 32 YRS ?: 1980 ?Sex:F ?[address] )[phone] ?? Adm Dt: 07/26/2013 ?[place], [place] ??[id number] Created: 07/30/2013 ??0030 ?? Pt. Type: I ? Discharge Dt: 07/29/2013 ? Pathologists: Noelle Wallace MD Admit Attend Dr: OSCAR KWON MD ?SKIN TESTS ?Collection Date: ?07/26/13 ?Collection Time: ?1725 ? Ref Range: ?? Units: ?TB DATE GIVEN ?[id number] ?TB TIME GIVEN ? 1730 ?TB ARM ?RT ARM ?TB READ BY ?[id number] ?TB DATE TO READ ?[id number] ?TB DATE READ ? [id number] [NEGATIVE] ?TB RESULT ? NEGATIVE ?URINALYSIS ?Collection Date: ?07/26/13 ?Collection Time: ?1610 ? Ref Range: ?? Units: [YELLOW] ? U COLOR ? YELLOW ??[CLEAR] ? U APPEARANCE ?CLOUDY * [1.003-1.030] ? U SPEC GRAVITY ? 1.018 [NEGATIVE] ?U LEUKO ESTRASE ? NEGATIVE [NEGATIVE] ?U NITRITE ? NEGATIVE ?? [6.0] ?U PH ? 5.0 [NEGATIVE] ?U PROTEIN ? NEGATIVE [NEGATIVE] ?U GLUCOSE ? NEGATIVE [NEGATIVE] ?U KETONES ? NEGATIVE [0.2- 1.0] ?UROBILINOGEN ? 0.2 [NEGATIVE] ?U BILIRUBIN ? NEGATIVE [NEGATIVE] ?U BLOOD ? NEGATIVE ?? [0-2] ?U WBC ? NEGATIVE ?? [0-5] ?U RBC ? NEGATIVE ?? [0-2] ?U EPI CELLS ?10-25 * [NEGATIVE] ?U BACTERIA ?1+ * Footnotes and Symbols: * = Abnormal ?? CONTINUED ?Page: ?? 6 Patient No: [id number] ? [facility] Patient Name: MARGY SALDANA ? [facility] Age: 32 YRS ?: 1980 ?Sex:F ?[address] )[phone] ?? Adm Dt: 07/26/2013 ?[place], [place] ??[id number] Created: 07/30/2013 ??0030 ?? Pt. Type: I ? Discharge Dt: 07/29/2013 ? Pathologists: Noelle Wallace MD Admit Attend Dr: OSCAR KWON MD ?URINALYSIS ?Collection Date: ?07/26/13 ?Collection Time: ?1610 ? Ref Range: ?? Units: ?U YEASTS ?NEGATIVE ?? [0-4] ?U HYALINE CASTS ?0-2 [NEGATIVE] ?U CRYSTALS ? CA OX * [NEGATIVE] ?U PATH CASTS ?NEGATIVE ? MICRO - URINE URINE CULTURE ? Collected: 07/27/131124 ? Received: 07/27/131143 Source: CLEAN CATCH URINE ? Started: 07/27/131146 ? PRELIMINARY REPORT ?07/28/13 1104 ? GREATER THAN 100, 000 CFU/ml STAPHYLOCOCCUS SPECIES (TO ?BE IDENTIFIED) ? FINAL REPORT ?07/29/13718 ? GREATER THAN 100, 000 CFU/ml STAPHYLOCOCCUS SPECIES ? IDENTIFIED : COAGULASE NEGATIVE STAPH SPECIES ?(SENSITIVITIES NOT PERFORMED) Footnotes and Symbols: * = Abnormal ?? CONTINUED ?Page: ?? 7 Patient No: [id number] ? [facility] Patient Name: MARGY SALDANA ? [facility] Age: 32 YRS ?: 1980 ?Sex:F ?[address] )[phone] ?? Adm Dt: 07/26/2013 ?[place], [place] ??[id number] Created: 07/30/2013 ??0030 ?? Pt. Type: I ? Discharge Dt: 07/29/2013 ? Pathologists: Noelle Wallace MD Admit Attend Dr: OSCAR KWON MD ? MICRO - MISCELLANEOUS STAPHYLOCOCCUS SCREEN ? Collected: 07/26/13 1625 ? Received: 07/26/13 1646 Source: LARA ? Started: 07/26/13 1849 ?Lara ? FINAL REPORT ?07/28/13 0928 ? NO METHICILLIN RESISTANT STAPH AUREUS CULTURED ?? END OF CHART ? Page: ?? 8 Historical Provider LAB BLOOD ORDERABLES Rachna l Result Performing Organization Address [facility] de Phone Number HISTORICAL RESULTS * Plasma partial thromboplastin time (PTT) (07/26/2013 8:21 PM CDT) Pathologist [facility] APTT 30.0 -<35. seconds HISTOR ICAL RESULTS Plasma 07/26/2013 8:21 PM CDT Oscar Kwon MD LAB BLOOD ORDERABLES Fin al Result Performing Organization Address [facility] de Phone Number HISTORICAL RESULTS * Plasma prothrombin time (PT) (07/26/2013 8:21 PM CDT) Prothrombin time (PT) 12.9 11.1 - 14.4 seconds HISTORICAL RESULTS INR 1.01 HISTORICAL RESULTS Comment: RECOMMENDED RANGES FOR PROTIME INR: NOTE: THE INR HAS BEEN VALIDATED ONLY FOR PATIENTS ON STABLE ORAL ?ANTICOAGULANT THERAPY. ?2.0 - 3.0 ??PROPHYLAXIS OF VENOUS THROMBOSIS (HIGH RISK SURGERY) ?2.0 - 3.0 ??TREATMENT OF VENOUS THROMBOSIS ?2.0 - 3.0 ??TREATMENT OF PULMONARY EMBOLISM ?2.0 - 3.0 ??PREVENTION OF SYSTEMIC EMBOLISM ? TISSUE HEART VALVES ? AMI (TO PREVENT SYSTEMIC EMBOLISM)* ? VALVULAR HEART DISEASE ? ATRIAL FIBRILLATION ?2.5 - 3.5 ??MECHANICAL PROSTHETIC VALVES (HIGH RISK) ?2.0 - 3.0 ??BILEAFLET MECHANICAL VALVE IN AORTIC POSITION *If oral anticoagulant therapy is elected to prevent recurrent myocardial infarction, an INR of 2.5 to 3.5 is recommended, consistent with Food and Drug Administration recommendations. Plasma 07/26/2013 8:2 1 PM CDT Oscar Kwon MD LAB BLOOD ORDERABLES Fin al Result Performing Organization Address [facility]/ZIP Co de Phone Number HISTORICAL RESULTS * Skin Tuberculosis (07/26/2013 5:25 PM CDT) [facility] Site tested RTARM HISTORIC AL RESULTS Date given HISTORICA L RESULTS Time given 173 HISTORICA L RESULTS Date to be read HIST ORICAL RESULTS Date read HISTORICAL RESULTS Read by [id number] HISTORICAL RESULTS Tuberculin ab interpretation Negative NEGATIVE HISTORICAL RESULTS Skin, NOS 07/26/2013 5:25 PM CDT Oscar Kwon MD LAB BLOOD ORDERABLES Fin al Result Performing Organization Address [facility] de Phone Number HISTORICAL RESULTS * Serum lipase (07/26/2013 5:25 PM CDT) [facility] Lip 93 70 - 400 Units/L HISTORICAL RESULTS Serum 07/26/2013 5:25 PM CDT Oscar Kwon MD LAB BLOOD ORDERABLES Fin al Result Performing Organization Address [facility] de Phone Number HISTORICAL RESULTS * (ABNORMAL) Blood cell count (CBC) (07/26/2013 5:25 PM CDT) WBC 10.6(H) 4.0 - 10.5 K/cumm HISTORICAL RESULTS RBC 5.34 4.20 - 5.40 M/cumm HISTORICAL RESULTS Hgb 13.8 12.0 - 16.0 g/dl HISTORICAL RESULTS Hct 42.1 37.0 - 47.0 % HISTORICAL RESULTS MCV 78.8 77.0 - 97.0 fl HISTORICAL RESULTS MCH 25.8 23.0 - 34.0 pg HISTORICAL RESULTS MCHC 32.8 32.0 - 36.0 g/dl HISTORICAL RESULTS Rdw 13.9 11.5 - 14.5 % HISTORICAL RESULTS Platelets 293 150 - 450 K/cumm HISTORICAL RESULTS MPV 10.1 7.4 - 10.4 fl HISTORICAL RESULTS Blood specimen (specimen) 07/26/2013 5:25 PM CDT Oscar Kwon MD LAB BLOOD ORDERABLES Fin al Result Performing Organization Address [facility] Phone Number HISTORICAL RESULTS * Serum amylase (07/26/2013 5:25 PM CDT) Sherri, sr 36 25 - 115 IUnits/L HISTORICAL RESULTS Comment:PLEASE SEE NEW REFER ENCE RANGE Serum 07/26/2013 5:25 PM CDT Oscar Kwon MD LAB BLOOD ORDERABLES Fin al Result Performing Organization Address [facility] Co de Phone Number HISTORICAL RESULTS * (ABNORMAL) Blood WBC cell morphologic exam, auto (07/26/2013 5:25 PM CDT) Lymphocytes 20.4(L) 25.0 - 33.0 % HISTORICAL RESULTS Monos 6.6 1.0 - 13.0 % HISTORICAL RESULTS Neutrophils 68.9 53.0 - 69.0 % HISTORICAL RESULTS Eosinophils 3.5 0.0 - 10.0 % HISTORICAL RESULTS Basophils 0.3 0.0 - 1.0 % HISTORICAL RESULTS Immature granulocytes 0.3 0.0 - 1.0 % HISTORICAL RESULTS Lymphocytes, abs 2.2 1.2 - 3.4 K/cumm HISTORICAL RESULTS Monocytes, absolute 0.7(L) 1.1 - 1.9 K/cumm HISTORICAL RESULTS Neutrophils, abs 7.3(H) 1.4 - 6.5 K/cumm HISTORICAL RESULTS Eosinophils, abs 0.4 0.0 - 0.7 cells/cum m HISTORICAL RESULTS Basophils, abs 0.0 0.0 - 0.2 K/cumm HISTORICAL RESULTS Immature granulocyte, abs 0.0(H) 0.0 - 0.0 K/cumm HISTORICAL RESULTS Blood specimen (specimen) 07/26/2013 5:25 PM CDT Oscar Kwon MD LAB BLOOD ORDERABLES [facility] al Result HISTORICAL RESULTS * (ABNORMAL) Serum comprehensive metabolic panel (07/26/2013 5:25 PM CDT) Pathologist [facility] BUN 12.0 6.0 - 23.0 mg/dl HISTORICAL RESULTS Sodium 138 134 - 143 mmol/L HISTORICAL RESULTS Potassium, sr 3.9 3.4 - 5.0 mmol/L HISTORICAL RESULTS Chloride 100 99 - 108 mmol/L HISTORICAL RESULTS CO2 29 23 - 32 mmol/L HISTORICAL RESULTS Glucose 100 70 - 199 mg/dl HISTORICAL RESULTS Comment: Note:The glucose is assumed non fasting Fastin-99 mg/dl Random: 70-199 mg/dl Either a fasting glucose > 126 mg/dL or a random glucose > 200 mg/dL plus symptoms is diagnostic of diabetes when confirmed on another day. Fasting values > 100 mg/dl but < 125 mg/dL are diagnostic of impaired fasting glucose. New reference ranges implemented 02/05/2013. Creatinine 1.05 0.60 - 1.30 mg/dl HISTORICAL RESULTS Comment: eGFR:65 ml/min/1.73sq.m if non -[place]gand[place]. eGFR: >70 ml/min/1.73sq.m if -[place]gandan. AVE GFR for 30-39 yr. age group: 107 ml/min/1.73sq.m Calculated using MDRD Equation BUN/creat ratio 11 10 - 20 HIST ORICAL RESULTS A. gap 13 7 - 14 mmol/L HISTORICAL RESULTS Protein, sr 8.0 6.4 - 8.0 g/dl HISTORICAL RESULTS Alb 3.9 3.3 - 4.5 g/dl HISTORICAL RESULTS Alb/glob ratio 1.0(L) 1.1 - 1.8 HISTO RICAL RESULTS Calcium 9.4 8.6 - 9.8 mg/dl HISTORICAL RESULTS Bilirubin 0.2 0.0 - 1.1 mg/dl HISTORICAL RESULTS Alk phos 141(H) 44 - 125 Units/L HISTORICAL RESULTS AST 31 5 - 40 Units/L HISTORICAL RESULTS Comment:AST - NOTE REFERENCE RANGE CHANGE ALT 73(H) 15 - 70 Units/L HISTORICAL RESULTS Serum 07/26/2013 5:25 PM CDT Oscar Kwon MD LAB BLOOD ORDERABLES Fin al Result Performing Organization Address [facility] de Phone Number HISTORICAL RESULTS * Urine chorionic gonadotropin (HCG) (07/26/2013 4:10 PM CDT) HCG, ur Negative NEGATIVE HISTORICAL RESULTS Urine 07/26/2013 4:10 PM CDT Oscar Kwon MD LAB BLOOD ORDERABLES Fin al Result Performing Organization Address [facility] de Phone Number HISTORICAL RESULTS * (ABNORMAL) Urinalysis (07/26/2013 4:10 PM CDT) Color, ur YELLOW YELLOW HISTORICAL RESULTS Clarity, ur CLOUDY(A) CLEAR HISTORIC AL RESULTS Specific gravity, ur 1.018 1.003 - 1.030 gu HISTORICAL RESULTS Leukocyte esterase, ur Negative NEGATIVE HISTORICAL RESULTS Nitrites, ur Negative NEGATIVE HISTORI ALIN RESULTS pH, ur 5.0 6.0 HISTORICAL RESULTS Protein, ur Negative NEGATIVE HISTORIC AL RESULTS Glucose, ur Negative NEGATIVE HISTORIC AL RESULTS Ketones, ur Negative NEGATIVE HISTORIC AL RESULTS Urobilinogen, quant, ur 0.2 0.2 - 1.0 mg/dl HISTORICAL RESULTS Bilirubin, ur Negative NEGATIVE HISTOR ICAL RESULTS U Blood Negative NEGATIVE HISTORICAL RESULTS Urine 07/26/2013 4:10 PM CDT Oscar Kwon MD LAB BLOOD ORDERABLES Fin al Result Performing Organization Address [facility] de Phone Number HISTORICAL RESULTS * Urine drug screen (07/26/2013 4:10 PM CDT) pH, ur 5.0 6.0 HISTORICAL RESULTS Benzodiazepines , ur Negative NEGATIVE HISTORICAL RESULTS Comment:BENZODIAZEPINES CUT OFF VALUE 200 ng/ml Cocaine, ur Negative NEGATIVE HISTORIC AL RESULTS Comment:COCAINE CUT OFF VALU E 300 ng/ml Amphetamine + methamphetamine , ur Negative NEGATIVE HISTORICAL RESULTS Comment:AMPHETAMINES CUT OFF VALUE 1000 ng/ml Cannabinoids, ur Negative NEGATIVE HISTORICAL RESULTS Comment:THC/MARIJUANA CUT OF F VALUE 50 ng/ml Opiates, qual, ur Positive NEGATIVE HISTORICAL RESULTS Comment:OPIATES CUT OFF VALU E 2000 ng/ml Barbiturates, ur Negative NEGATIVE HISTORICAL RESULTS Comment: BARBITURATES CUT OFF VALUE 200 ng/ml SCREENING TEST ONLY. ALL POSITIVE URINES WILL BE CONFIRMED UPON DOCTOR REQUEST ONLY. UNCONFIRMED SCREENING RESULTS MUST NOT BE USED FOR NON-MEDICAL PURPOSES. Phencyclidine, qual, ur Negative NEGATIVE HISTORICAL RESULTS Comment:PCP CUT OFF VALUE 25 ng/ml Urine 07/26/2013 4:10 PM CDT Oscar Kwon MD LAB BLOOD ORDERABLES Fin al Result Performing Organization Address [facility] de Phone Number HISTORICAL RESULTS * (ABNORMAL) Urine microscopy (07/26/2013 4:10 PM CDT) WBC, ur Negative 0 - 2 /hpf HISTORICA L RESULTS RBC, ur Negative 0 - 5 /hpf HISTORICA L RESULTS Epithelial cells, ur 10 - 25(A) 0 - 2 /hpf HISTORICAL RESULTS Bacteria, ur 1+(A) NEGATIVE /hpf HISTORICAL RESULTS Hyaline casts 0 - 2 0 - 4 /lpf HISTO RICAL RESULTS Crystals, ur CAOX(A) NEGATIVE HISTORI ALIN RESULTS Yeast, ur Negative NEGATIVE HISTORICAL RESULTS Pathological casts, ur Negative NEGATIVE HISTORICAL RESULTS Urine 07/26/2013 4:10 PM CDT us Oscar Kwon MD LAB BLOOD ORDERABLES Fin al Result Performing Organization Address City/[facility] Co de Phone Number HISTORICAL RESULTS * (ABNORMAL) Serum ethanol (07/26/2013 12:25 PM CDT) Ethanol, sr <10(A) -<10 mg/dl HISTORI ALIN RESULTS Serum 07/26/2013 12:2 5 PM CDT Narrative HISTORICAL RESULTS - 07/26/2013 2:57 PM CDT <10.O mg/dl = NO ETHANOL DETECTED NORMAL: ??NO ETHANOL DETECTED FOR MEDICAL PURPOSES ONLY us Oscar Kwon MD LAB BLOOD ORDERABLES Fin al Result Performing Organization Address [facility] de Phone Number HISTORICAL RESULTS * Microbiology Summary (07/26/2013 12:00 AM CDT) 07/26/2013 Narrative HISTORICAL RESULTS - 07/30/2013 12:32 AM CDT ? [facility] ?CLINICAL LABORATORIES ? MICROBIOLOGY REPORT PATIENT NAME: ??MARGY SALDANA ? MED RECORD#: ??[id number] BIRTHDATE: ??1980 ?? AGE: ??32 YRS SEX: F ?PATIENT#: ? [id number] ADMITTING DR: ??OSCAR KWON MD ? ATTENDING DR: ??OSCAR KWON MD ? ACCESSION#: ?? [id number] CREATED: ??07/30/13 ?? 0030 ? ADMIT DATE: ?? 07/26/13 ? MICRO - URINE URINE CULTURE ? Collected: 07/27/13 1125 ? Received: 07/27/13 1144 Source: CLEAN CATCH URINE ? Started: 07/27/13 1147 ?07/28/13 1104 ? GREATER THAN 100, 000 CFU/ml STAPHYLOCOCCUS SPECIES (TO ?BE IDENTIFIED) ?07/29/13 0719 ? GREATER THAN 100, 000 CFU/ml STAPHYLOCOCCUS SPECIES ? IDENTIFIED : COAGULASE NEGATIVE STAPH SPECIES ?(SENSITIVITIES NOT PERFORMED) ? MICRO - MISCELLANEOUS STAPHYLOCOCCUS SCREEN ? Collected: 07/26/13 1625 ? Received: 07/26/13 1646 Source: NARES ? Started: 07/26/13 1849 ?Nares ?07/28/13 0928 ? NO METHICILLIN RESISTANT STAPH AUREUS CULTURED ?? END OF CHART us Historical Provider LAB MICROBIOLOGY - GENERA L ORDERABLES Final Result HISTORICAL RESULTS documented in this encounter Visit Diagnoses Diagnosis Drug withdrawal (HCC) Drug withdrawal Opioid type dependence, continuous abuse (HCC) Bipolar affective disorder (HCC) Bipolar disorder, unspecified Personal history of noncompliance with medical treatment, presenting hazards to health Other nonspecific finding on examination of urine documented in this encounter
--- OUTSIDE RECORDS SUMMARY | 2024-03-13 02:23 | XMS_ITS | Encounter Summary ---
Author Organization [facility] Address [address] [place] [address] Care Team Providers Care Bellmaker Name Role Phone No, Physician Primary Care Provider [phone] Encounter Details Date Type Department Care Team (Late st Contact Info) Description 02/03/2021 Orders Only [facility] Cardiology [address] [facility] [address] [place] [address] Merline Singleton MD [address] [place] [address] [place] [address] Social History Tobacco Use Types Packs/Day Years Used Date Smoking Tobacco: Never Smokeless Tobacco: Never Alcohol Use Standard Drinks/Week Comments Not Currently 0 (1 standard drink = 0.6 oz pur e alcohol) Comments No Sex and Gender Information Value Date Recorded Sex Assigned at Not on file Legal Sex Female 3:16 AM [employer] Gender Identity Not on file Sexual Orientation Not on file documented as of this encounter Plan of Treatment Not on file documented as of this encounter Procedures Procedure Name Priority Date/Time Associated Diagnosis Comments CARDIOLOGY DOCUMENT SCAN Routine 02/03/2021 documented in this encounter Results * SCAN - CARDIOLOGY (02/03/2021) Anatomical Region Laterality Modality Other Merline Singleton MD CV CARDIAC SERVICES PROCEDU RES Final Result documented in this encounter Visit Diagnoses Not on filedocumented in this encounter Care Teams Bellmaker Relationship Specialty Start Date End Date No, Physician PCP - General 01/31/21 documented as of this encounter
--- OUTSIDE RECORDS SUMMARY | 2024-03-13 02:23 | XMS_ITS | Encounter Summary ---
Author Organization [facility] Healthcare Address [address] [place] [address] Care Team Providers Care Nursing Support Worker Name Role Phone Unavailable Primary Care Provider Unavailabl e Encounter Details Date Type Department Care Team (Latest Contact Info) Description 03/04/2020 12:48 PM JACKERMAN - 03/07/2020 9:53 AM JACKERMAN Hospital Encounter [address] [address] Arslan Funes MD [address] [place] [address] Discharge Disposition: Discharge to home or self care Social History Tobacco Use Types Packs/Day Years Used Date Smoking Tobacco: Never Smokeless Tobacco: Never Alcohol Use Standard Drinks/Week Comments Not Currently 0 (1 standard drink = 0.6 oz pur e alcohol) Comments No Sex and Gender Information Value Date Recorded Sex Assigned at Not on file Legal Sex Female 3:16 AM JACKERMAN Gender Identity Not on file Sexual Orientation Not on file documented as of this encounter Last Filed Vital Signs Vital Sign Reading Time Taken Comments Blood Pressure 126/80 03/07/2020 8:00 AM JACKERMAN Pulse 69 03/07/2020 8:00 AM JACKERMAN Temperature 36.6 ??C (97.9 ??F) 03/07/2020 8:00 AM CS T Respiratory Rate 18 03/07/2020 8:00 AM JACKERMAN Oxygen Saturation 100% 03/07/2020 8:00 AM JACKERMAN Inhaled Oxygen Concentration - - Weight 74.8 kg (165 lb) 03/04/2020 1:55 PM JACKERMAN Height 165.1 cm (5' 5 ) 03/04/2020 1:55 PM JACKERMAN Body Mass Index 27.46 03/04/2020 1:55 PM JACKERMAN documented in this encounter Discharge Diagnoses Diagnosis Opioid dependence with withdrawal (CMS/HCC) (HCC) - OPIOID DEPENDENCE WITH WITHDRAWAL Essential (primary) hypertension - ESSENTIAL (PRIMARY) HYPERTENSION Unspecified essential hypertension Allergy status to sulfonamides - ALLERGY STATUS TO SULFONAMIDES documented in this encounter Discharge Summaries * Arslan Funes MD - 03/07/2020 7:30 AM CST Inpatient Discharge Summary BRIEF OVERVIEW Admitting Provider: Arslan Funes MD Discharge Provider: Arslan Funes MD Primary Care Physician at Discharge: Miscellaneous, Not In File None Admission Date: 03/04/2020 Discharge Date: 03/07/2020 Admission Location: [facility], [place] Problems/Diagnoses: Principal Problem: Opioid dependence with withdrawal (CMS/HCC) DETAILS OF HOSPITAL STAY Presenting Problem/History of Present Illness: Opioid withdrawal Hospital Course: Successful medical stabilization Discharge Details Physical Exam at Discharge: Discharge Condition: stable Pulse: 80 Resp: 18 BP: 160/98 Temp: 36.7 ??C (98 ??F) Weight: 74.8 kg (165 lb) Pertinent Exam Findings at Discharge: none Discharge Disposition: Discharge to home or self care Code Status at Discharge: full Discharge Instructions: Discharge Medications: Current Medications TAKE these medications buprenorphine 2 mg tablet, sublingual Place 1 tablet (2 mg total) under the tongue every 12 (twelve) hours for 14 doses For: dependence on opioid-type drugs, prevention of relapse to opioid dependence, Opioid Withdrawal Commonly known as: SUBUTEX chlordiazePOXIDE 25 mg capsule Take 1 capsule (25 mg total) by mouth 3 (three) times a day as needed for anxiety For: anxious Commonly known as: LIBRIUM losartan 100 mg tablet Take 1 tablet (100 mg total) by mouth daily Commonly known as: COZAAR Outpatient Follow-Up: Per Medical Stabilization ERMAN documented in this encounter Medications at Time of Discharge buprenorphine (SUBUTEX) 2 mg tablet, sublingualIndicat ions:Opioid Dependence,Preven tion of Opioid Abuse,Opioid Withdrawal Place 1 tablet (2 mg total) under the tongue every 12 (twelve) hours for 14 doses 14 tablet 03/07/2020 03/14/2020 chlordiazePOXIDE (LIBRIUM) 25 mg capsuleIndication s:anxiety Take 1 capsule (25 mg total) by mouth 3 (three) times a day as needed for anxiety 30 capsule 03/07/2020 07/08/2022 losartan (COZAAR) 100 mg tablet Take 1 tablet (100 mg total) by mouth daily 30 tablet 03/07/2020 07/08/2022 documented as of this encounter Ordered Prescriptions Prescription Sig Dispense Quantity Refills Last Filled Start Date End Date losartan (COZAAR) 100 mg tablet Take 1 tablet (100 mg total) by mouth daily 30 tablet 03/07/2020 3 chlordiazePOXIDE (LIBRIUM) 25 mg capsuleIndications :anxiety Take 1 capsule (25 mg total) by mouth 3 (three) times a day as needed for anxiety 30 capsule 03/07/2020 3 buprenorphine (SUBUTEX) 2 mg tablet, sublingualIndicati ons:Opioid Dependence,Prevent ion of Opioid Abuse,Opioid Withdrawal Place 1 tablet (2 mg total) under the tongue every 12 (twelve) hours for 14 doses 14 tablet 03/07/2020 0 documented in this encounter Discharge Disposition Disposition Code Departure Means Destination Discharge to home or self care documented in this encounter Progress Notes * Lucas Muñoz RN - 03/07/2020 9:50 AM CST Patient discharged to home via family friend accompanied by ZANE Basilio to vehicle. Discharge instructions reviewed with patient and/or senior human resources representative. Mobile pharmacy medications and/or prescriptionsprovided. Belongings/home medications returned. ERMAN * Arslan Funes MD - 03/06/2020 7:35 AM CST General Medicine Progress Note Gely Allen is a 39 y.o. female Subjective: Doing better Objective: Vitals: 24hr Min/Max: Temp Min: 36.6 ??C (97.9 ??F) Max: 36.8 ??C (98.2 ??F) Pulse Min: 58 Max: 69 BP Min: 100/57 Max: 130/89 Resp Min: 18 Max: 20 SpO2 Min: 96 % Max: 98 % Physical exam: Blood pressure 100/57, pulse 58, temperature 36.7 ??C (98 ??F), temperature source Oral, resp. rate18, height 165.1 cm (5' 5 ), weight 74.8 kg (165 lb), SpO2 96 %. Gen: AO^3, NAD Cv: RR Resp: CTA, no wheezes or crackles Ext: No edema Lab/Radiology/Diagnostic Review: Reviewed. No results found for this or any previous visit (from the past 24 hour(s)). Assessment and Plan: Principal Problem: Opioid dependence with withdrawal ([facility]) Opioid withdrawal - continue medical stabilization Arslan Funes MD 03/06/2020 7:35 AM ERMAN * Lucas Muñoz RN - 03/04/2020 6:47 PM CST Assessment of patient???s baseline is established at the beginning of the shift in flowsheets. Patient reassessed per order, unexpected findings and/or deviations from baseline are captured in flowsheets. Frequent safety checks and comfort rounds provided. Orders and/or nursing care completed as indicated. Patient monitored for response to interventions and treatments as documented in flowsheets.Patient monitored for signs and symptoms of withdrawal. PRN medications utilized as needed. PatientBP was very high when admitted, PRN clonidine given and BP is now significantly improved. Educationprovided includes withdrawal medications, signs and symptoms of withdrawal, VS schedule, fall precautions. Patient and/or senior human resources representative receptive to learning but will need further reinforcement. Will continue to monitor. ERMAN * Lucas Muñoz RN - 03/04/2020 1:13 PM CST Patient admitted to 5th floor from home via family. Covering service notified. Patient presents with opiate withdrawal. Orders reviewed & will continue to monitor. Patient and/or senior human resources representative oriented to environment, equipment, and informed of the following as found in admission booklet: patient rights & responsibilities, visitor policy, hand and respiratory hygiene practice. Other education includes: withdrawal medications, VS, fall precautions. Patient and/or senior human resources representative receptive to learning but will need reinforcement. ERMAN documented in this encounter H&P Notes * Arslan Funes MD - 03/05/2020 7:08 AM CST Medical Stabilization History and Physical HPI: Gely Allen is a 39 y.o. female admitted with opioid withdrawal. Patient last used the day before admission. Gely Allen presented with nausea, vomiting, abdominal pain, stomach cramps, diarrhea, as well as muscle aches, goosebumps, nasal congestion, tearing, sweating, and yawning. Since admission, the patient was started on medication for opioid withdrawal and other medications for symptomatic relief. Past Medical History: Diagnosis Date ??? Hypertension Past Surgical History: Procedure Laterality Date ??? HYSTERECTOMY No medications prior to admission. Allergies Allergen Reactions ??? Sumatriptan Anaphylaxis Reaction: ANAPHYLAXIS ??? Sulfa (Sulfonamide Antibiotics) Rash ??? Amoxicillin Rash Reaction: RASH Social History Tobacco Use ??? Smoking status: Never Smoker ??? Smokeless tobacco: Never Used Substance Use Topics ??? Alcohol use: Not Currently History reviewed. No pertinent family history. Review of Systems Gen: +unintentional weight loss, +sweats, +fatigue, denies fevers HEENT: Denies ear or throat pain CV: Denies chest pain, denies palpitations, denies claudication, denies edema Resp: Denies shortness of breath, denies wheezing Gi: +nausea, +vomiting, +abdominal pain, +diarrhea Gu: Denies hematuria, denies dysuria, denies frequency MSK: +myalgias, denies joint pain or swelling Skin: Denies rashes, + lesions Heme: Denies purpura, denies bleeding Neuro: Denies numbness, denies paraesthesias, denies headache Psych: +depression, +anxiety, +insomnia Objective: Vitals: Arrival Vitals [03/04/20 1310] Temp 36.9 ??C (98.5 ??F) Pulse 90 Resp 20 BP (!) 216/139 SpO2 97 % Temp src Oral Heart Rate Source Pulse Oximetry Patient Position Sitting BP Location Left arm FiO2 (%) 24hr Min/Max: Temp Min: 36.5 ??C (97.7 ??F) Max: 37.1 ??C (98.8 ??F) Pulse Min: 59 Max: 90 BP Min: 115/74 Max: 216/139 Resp Min: 18 Max: 20 SpO2 Min: 97 % Max: 99 % Most Recent : Vitals: 03/05/20 0407 BP: 115/74 Pulse: 59 Resp: 18 Temp: 36.8 ??C (98.2 ??F) SpO2: 98% I/O last 2 completed shifts: In: 240 [P.O.:240] Out: 1 [Urine:1] No intake/output data recorded. Physical exam: Gen: female in NAD HEENT: Sclerae nonicteric, OP clear and dry Neck: No lymphadenopathy or thyromegaly Cv: RRR, no murmurs Resp: CTA, no wheezes or crackles Gi: +BS, NTND MSK: No gross deformities Ext: No edema Neuro: AO^3, speech clear Psych: Depressed and anxious mood Lab/Radiology/Diagnostic Review: Reviewed. Recent Results (from the past 24 hour(s)) Drugs of Abuse Screen, Urine without Confirmation Collection Time: 03/04/20 1:26 PM Result Value Ref Range Amphetamine, ur Detected (A) CutOff 500ng/mL Barbiturates, ur Not Detected CutOff 200ng/mL Benzodiazepines, ur Detected (A) CutOff 100ng/mL Cannabinoids, ur Not Detected CutOff 50 ng/mL Cocaine, ur Not Detected CutOff 150ng/mL Fentanyl, Ur Detected (A) Cutoff 1 ng/mL Methadone, ur Not Detected CutOff 300ng/mL Opiates, ur Detected (A) CutOff 300ng/mL Oxycodone, ur Not Detected CutOff 100ng/mL Phencyclidine, ur Not Detected CutOff 25 ng/mL Urine Creatinine 190 mg/dL hCG, urine, qualitative Collection Time: 03/04/20 1:26 PM Result Value Ref Range HCG, ur Negative Negative Assessment and Plan: Opioid withdrawal and dependence - continue medical stabilization Arslan Funes MD Medical Stabilization Service 03/05/2020 7:08 AM ERMAN ERMAN documented in this encounter Miscellaneous Notes * Plan of Care - Wagner Hawthorne RN - 03/07/2020 5:27 AM JACKERMAN Problem: Lack of Knowledge: Goal: Ability to state ways to decrease the risk of falls will improve Outcome: Progressing Problem: Safety: Goal: Will remain free from falls Outcome: Progressing Goal: Will remain free from injury from falls Outcome: Progressing Problem: Health Behavior: Goal: Understanding of discharge needs will improve Outcome: Progressing Problem: Drug Abuse Goal: Will have no drug abuse symptoms and will verbalize plan for changing drup-related behavior Description: INTERVENTIONS: 1. Administer medication as ordered 2. Monitor physical status 3. Encourage recovery focused treatment Outcome: Progressing Goals: Clinical Goals for the Shift: Continue medical stabalization program. Monitor for and manage symtpoms of withdrawal with both PRN and scheduled medications. Summary:Patient noted to have intermittent discomfort with PRN medications given with resolution ofsymptoms. Will continue to monitor this shift. ERMAN * Plan of Care - Kiki Palacios RN - 03/06/2020 6:16 PM CST Goals: Clinical Goals for the Shift: Continue medical stabalization program. Monitor for and manage symptoms of withdrawal with both PRN and scheduled medications Summary: Patient symptoms managed with PRN and scheduled meds. ERMAN * Treatment Plan - Yohana Verdugo BSW - 03/06/2020 10:30 AM CST CSS met with Pt to talk about aftercare plan. Pt was up and states that she is feeling a lot bettertoday.As places discussed, Pt was given the number to call and schedule her aftercare. [facility] program on March 11, 2020 @ 8:20 am. Pt asked that she get a Bridge script so she does not relapse until her appointment next week. ERMAN * Plan of Care - Wagner Hawthorne RN - 03/06/2020 5:48 AM JACKERMAN Problem: Lack of Knowledge: Goal: Ability to state ways to decrease the risk of falls will improve Outcome: Progressing Problem: Safety: Goal: Will remain free from falls Outcome: Progressing Goal: Will remain free from injury from falls Outcome: Progressing Problem: Health Behavior: Goal: Understanding of discharge needs will improve Outcome: Progressing Goals: Clinical Goals for the Shift: Continue medical stabalization program. Monitor for and manage symptoms of withdrawal with both PRN and scheduled medications Summary: ERMAN documented in this encounter Plan of Treatment Not on file documented as of this encounter Procedures Procedure Name Priority Date/Time Associated Diagnosis Comments EGFR STAT 03/06/2020 9:04 AM JACKERMAN LIPASE STAT 03/06/2020 9:04 AM JACKERMAN AMYLASE STAT 03/06/2020 9:04 AM JACKERMAN ETHANOL STAT 03/06/2020 9:04 AM JACKERMAN COMPREHENSIVE METABOLIC PANEL STAT 03/06/2020 9:04 AM JACKERMAN DRUGS OF ABUSE SCREEN, URINE WITHOUT CONFIRMATION STAT 03/04/2020 1:26 PM JACKERMAN HCG, URINE, QUALITATIVE STAT 03/04/2020 1:26 PM JACKERMAN documented in this encounter Results * eGFR (03/06/2020 9:04 AM JACKERMAN) [facility] eGFR 82 mL/min/1.7 3 m2 LAURA CHAPARRO Comment: Interpretive Data Reference Interval Normal ?>/= 90 mL/min/1.73m2 Mildly decreased* ? 60 - 89 mL/min/1.73m2 Mildly to moderately decreased ?45 - 59 mL/min/1.73m2 Moderately to severely decreased ??30 - 44 mL/min/1.73m2 Severely decreased ?15 - 29 mL/min/1.73m2 Kidney Failure ?< 15 ??mL/min/1.73m2 *Relative to young adult level If -Swedish multiply value by 1.16. Estimated glomerular filtration rate is determined by the CKD-EPI equation recommended by the National Kidney Foundation (KDIGO 2012 Clinical Practice Guideline for the Evaluation and Management of Chronic Kidney Disease. Kidney Intnl Suppl Mar 2012;3:1). The CKD-EPI equation should not be used for patients with unstable renal function and has not been validated in children and those over 70. Current interpretive data was last reviewed 2015. Blood specimen (specimen) 03/06/2020 9:04 AM JACKERMAN 03/06/2020 9:13 AM JACKERMAN Arslan Funes MD LAB BLOOD ORDERABLES Final Resu lt Performing Organization Address [facility] Co de Phone Number LAURA [address] [place] [place] [address] * Ethanol (03/06/2020 9:04 AM JACKERMAN) Ethanol <10 <=10 mg/dL LAURA Comment: Interpretive Data Legal limit of intoxication > or = 80 mg/dL Levels > or = 400 mg/dL are potentially TOXIC. Current interpretive data was last revised on 2018. Blood specimen (specimen) 03/06/2020 9:04 AM JACKERMAN 03/06/2020 9:13 AM JACKERMAN Arslan Funes MD LAB BLOOD ORDERABLES Final Resu lt Performing Organization Address [facility]/ZIP Co de Phone Number LAURA [address] [facility] [employer] [place] [address] * Lipase (03/06/2020 9:04 AM JACKERMAN) Lipase 18 10 - 99 Units/L [facility] Blood specimen (specimen) 03/06/2020 9:04 AM JACKERMAN 03/06/2020 9:13 AM JACKERMAN us Arslan Funes MD LAB [place]LOOD [place] [address] Department of Laboratories [place] [id number] * Comprehensive metabolic panel (03/06/2020 9:04 AM JACKERMAN) Sodium 137 135 - 145 mmol/L [facility] Potassium, pl 4.6 3.3 - 4.9 mmol/L [facility] Comment:Hemolysis present. R esults may be affected. Chloride 106 97 - 110 mmol/L [facility] CO2 22 22 - 32 mmol/L [facility] Anion gap 9 2 - 15 mmol/L [facility] BUN 17 8 - 25 mg/dL [facility] Creatinine 0.89 0.60 - 1.10 mg/dL [facility] Glucose 150 70 - 199 mg/dL [facility] Comment: [...] classification and Diagnosis of Diabetes Diabetes Care 2017;40 (Suppl. 1):S11. Current interpretive data was last revised 2017. Calcium 9.0 8.5 - 10.3 mg/dL [facility] Bilirubin, total 0.6 0.1 - 1.2 mg/dL [facility] Protein, pl 6.8 6.5 - 8.5 g/dL [facility] Albumin 3.5 3.5 - 5.0 g/dL [facility] Alk phos 75 40 - 130 Units/L [facility] ALT 7 7 - 45 Units/L [facility] AST 32 10 - 45 Units/L [facility] Comment:Hemolysis present. R esults may be affected. Blood specimen (specimen) 03/06/2020 9:04 AM JACKERMAN 03/06/2020 9:13 AM JACKERMAN Arslan Funes MD LAB BLOOD ORDERABLES Final Resu lt Performing Organization Address [facility] de Phone Number [facility] [address] [place] [address] * (ABNORMAL) Amylase (03/06/2020 9:04 AM JACKERMAN) Amylase 27(L) 30 - 99 Units/L [facility] Blood specimen (specimen) 03/06/2020 9:04 AM JACKERMAN 03/06/2020 9:13 AM JACKERMAN Arslan Funes MD LAB BLOOD ORDERABLES Final Resu lt Performing Organization Address [facility] de Phone Number [facility] [address] [place] [address] * hCG, urine, qualitative (03/04/2020 1:26 PM JACKERMAN) HCG, ur Negative Negative [facility] Urine 03/04/2020 1:26 PM JACKERMAN 03/04/2020 1:29 PM JACKERMAN Arslan Funes MD LAB URINE ORDERABLES Final Resu lt Performing Organization Address [facility] de Phone Number [facility] [address] [place] [address] * (ABNORMAL) Drugs of Abuse Screen, Urine without Confirmation (03/04/2020 1:26 PM JACKERMAN) Amphetamine, ur Detected(A) CutOff 500ng/mL [facility] Comment: Interpretive Data - Amphetamines: ??Samples containing greater than 500 ng/mL d-methamphetamine ??or other cross-reacting amphetamine compounds are reported as positive. ??Amphetamine immunoassays are subject to significant false positive rates due to cross-reactivity of non-amphetamine drugs. Current Interpretive Data was last reviewed 2018. Testing performed by: [facility], [address], [place] [address] Barbiturates, ur Not Detected CutOff 200ng/mL CERNER Comment: Interpretive Data - Barbiturates: ??Samples containing greater than 200 ng/mL secobarbital or other cross-reacting barbiturate compounds are reported as positive. ??False positive and false negative results are possible. Current Interpretive Data was last reviewed 2018. Testing performed by: [facility], [address] [place] [address] [place] [address] Benzodiazepines, ur Detected(A) CutOff 100ng/mL CERNER Comment: Interpretive Data - Benzodiazepines: ??Samples containing greater than 100 ng/mL nordiazepam or other cross-reacting compounds are reported as positive. ?? False positive and false negative results are possible. ?? Current Interpretive Data was last reviewed 2018. Testing performed by: [facility], [facility] [address] [place] [address] Cannabinoids, ur Not Detected CutOff 50 ng/mL CERNER Comment: Interpretive Data - Cannabinoids: ??Samples containing greater than 50 ng/mL delta-9 THC -COOH or other cross-reacting compounds are reported as positive. ??False positive and false negative results are possible. ?? Current Interpretive Data was last reviewed 2018. Testing performed by: [facility], [facility] [place], [place] [address] Cocaine, ur Not Detected CutOff 150ng/mL [facility]ERNER Comment: Interpretive Data - Cocaine: ??Samples containing greater than 150 ng/mL benzoylecgonine or other cross-reacting compounds are reported as positive. False positive and false negative results are possible. Current Interpretive Data was last reviewed 2018. Testing performed by: [facility], [address] [place], [place] [address], [facility] Fentanyl, Ur Detected(A) Cutoff 1 ng/mL [facility] Comment: Interpretive Data - Fentanyls: ??Samples containing greater than 1 ng/mL fentanyl or other cross-reacting fentanyl compounds are reported as detected. ??False positive and false negative results are possible. Current Interpretive Data was last reviewed 2018. Testing performed by: [facility], [facility] [place] [address] Methadone, ur Not Detected CutOff 300ng/mL [facility]ER Comment: Interpretive Data - Methadone: ??Samples containing greater than 300 ng/mL d,l-methadone or other cross-reacting compounds are reported as positive. ??False positive and false negative results are possible. Current Interpretive Data was last reviewed 2018. [facility] [address], [place] [address] Opiates, ur Detected(A) CutOff 300ng/mL [facility] Comment: Interpretive Data - Opiates: ??Samples containing greater than 300 ng/mL morphine or other cross-reacting compounds are reported as positive. ??False positive and false negative results are possible. Current Interpretive Data was last reviewed 2018. Testing [facility] [address] [place] [address] Oxycodone, ur Not Detected CutOff 100ng/mL [facility] Comment: Interpretive Data - Oxycodone: ??Samples containing greater than 100 ng/mL oxycodone or other cross-reacting compounds are reported as positive. ??False positive and false negative results are possible. ?? Current Interpretive Data was last reviewed 2018. [facility] [address] [place] [address] Phencyclidine, ur Not Detected CutOff 25 ng/mL [facility] Comment: Interpretive Data - Phencyclidine: ??Samples containing greater than 25 ng/mL phencyclidine or other cross-reacting compounds are reported as positive. ??False positive and false negative results are possible. ?? Current Interpretive Data was last reviewed 2018. Testing [facility] [address] [place] [address] Urine Creatinine 190 mg/dL [facility] Comment: Interpretive Data Urine Creatinine: < 10 mg/dL is extremely dilute = or > 10 but < 20 mg/dL is dilute = or > 20 mg/dL is normal Current Interpretive Data was last revised on 2017. [facility] [address] [place] [address] Urine 03/04/2020 1:26 PM JACKERMAN 03/04/2020 3:13 PM JACKERMAN Narrative [facility] - 03/04/2020 3:41 PM JACKERMAN Drug of Abuse screening is performed by immunoassay for medical purposes only. ??This is not to be used for Pain Management purposes. us Arslan Funes MD LAB URINE ORDERABLES Final Resu lt LAURA CHAPARRO [address] [facility] Department [place] [address] documented in this encounter Visit Diagnoses Diagnosis Opioid dependence with withdrawal (CMS/HCC) (HCC) documented in this encounter Administered Medications Inactive Administered Medications - up to 3 most recent administrations Medication Order MAR Action Action Date Dose Rate Site acetaminophen (TYLENOL) tablet 500 mg 500 mg, oral, Every 4 hours PRN, fever, temperature greater than 38 C (100.4 F), Starting on Tue03/04/20 at 1300 aluminum-magnesium hydroxide-simethicone (MAALOX) 40-40-4 mg/mL oral suspension 30 mL 30 mL, oral, Every 6 hours PRN, dyspepsia, Starting on Tue03/04/20 at 1301 bisacodyL (DULCOLAX) suppository 10 mg 10 mg, rectal, Daily PRN, other, no BM in 48 hours, Starting on Tue03/04/20 at 1301, Indications: constipationIndications:constipatio n buprenorphine (SUBUTEX) sublingual tablet 2 mg 2 mg, sublingual, Every 8 hours, First dose on Tue03/05/20 at 1600, For 2 doses, Indications: Opioid WithdrawalIndications:Opioid Withdrawal Given 03/06/2020 12:53 AM [facility] 2 mg Given 03/05/2020 3:50 PM [facility] 2 mg buprenorphine (SUBUTEX) sublingual tablet 2 mg 2 mg, sublingual, Every 12 hours, First dose on Tue03/06/20 at 0800, For 3 doses, Indications: Opioid WithdrawalIndications:Opioid Withdrawal Given 03/07/2020 8: 45 AM [facility] 2 mg Given 03/06/2020 7:00 PM [facility] 2 mg Given 03/06/2020 8:48 AM [facility] 2 mg buprenorphine (SUBUTEX) sublingual tablet 4 mg 4 mg, sublingual, Every 8 hours, First dose on Tue03/04/20 at 1600, For 3 doses, Date/Time of Last Opioid Use: 03/03/2020 3pm RESCHEDULE administration time if needed., Indications: Opioid WithdrawalIndications:Opioid Withdrawal Given 03/05/2020 9: 22 AM [facility] 4 mg Given 03/04/2020 11:50 PM [facility] 4 mg Given 03/04/2020 4:22 PM [facility] 4 mg chlordiazePOXIDE (LIBRIUM) capsule 25 mg 25 mg, oral, Every 4 hours, First dose on Tue03/04/20 at 1430, For 6 doses, Indications: anxietyIndications:anxiety Given 03/05/2020 10:54 AM [facility] 25 mg Given 03/05/2020 6:09 AM [facility] 25 mg Given 03/05/2020 2:52 AM [facility] 25 mg chlordiazePOXIDE (LIBRIUM) capsule 25 mg 25 mg, oral, Every 6 hours PRN, other, mild anxiety - patient reported scale of 1-4, Starting on Tue03/05/20 at 1430, Indications: anxietyIndications:anxiety Given 03/06/2020 5:40 PM [facility] 25 mg cloNIDine (CATAPRES) tablet 0.1 mg 0.1 mg, oral, Every 2 hours PRN, high blood pressure, hot/cold sweats or anxiety, Starting on Tue03/04/20 at 1302, Hold for BP less than 90/60 or heart rate less than 60. Max dose 1.2 mg per 24 hours., Indications: Opioid Withdrawal SymptomsIndications:Opioid Withdrawal Symptoms Given 03/06/2020 5:50 PM [facility] 0.1 mg Given 03/05/2020 4:02 PM [facility] 0.1 mg Given 03/05/2020 10:54 AM [facility] 0.1 mg dicyclomine (BENTYL) tablet 20 mg 20 mg, oral, Every 6 hours PRN, abdominal discomfort, Starting on Tue03/04/20 at 1302, Indications: Abdominal Pain with CrampsIndications:Abdominal Pain with Cramps Given 03/06/2020 5:40 PM [facility] 20 mg Given 03/05/2020 4:03 PM [facility] 20 mg Given 03/05/2020 12:47 AM [facility] 20 mg folic acid (FOLVITE) tablet 1 mg 1 mg, oral, Daily, First dose on Tue03/04/20 at 1345, Indications: Folate DeficiencyIndications:Folate Deficiency Given 03/07/2020 8:44 AM [facility] 1 mg Given 03/06/2020 8:48 AM [facility] 1 mg Given 03/05/2020 9:21 AM [facility] 1 mg hydrOXYzine (ATARAX) tablet 50 mg 50 mg, oral, Every 6 hours PRN, other, mild anxiety - patient reported scale of 1-4, Starting on Tue03/04/20 at 1302, May administer together with PRN chlordiazePOXIDE (LIBRIUM)., Indications: anxietyIndications:anxiety Given 03/07/2020 3:18 AM [facility] 50 mg Given 03/06/2020 6:23 AM [facility] 50 mg Given 03/05/2020 9:33 PM [facility] 50 mg hydrOXYzine (VISTARIL) injection 50 mg 50 mg, intramuscular, Every 6 hours PRN, other, breakthrough anxiety if oral hydroxyzine is not effective after 30 minutes or patient reported scale of 5-10., Starting on Tue03/04/20 at 1302 ibuprofen (ADVIL,MOTRIN) tablet 600 mg 600 mg, oral, Every 8 hours PRN, 1st line for pain, pain less than 5/10, Starting on Tue03/04/20 at 1300 Given 03/07/2020 3:18 AM [facility] 600 mg Given 03/06/2020 6:23 AM [facility] 600 mg Given 03/05/2020 4:01 PM [facility] 600 mg loperamide (IMODIUM) capsule 2 mg 2 mg, oral, Every 8 hours PRN, diarrhea, loose stool, Starting on Tue03/04/20 at 1300, Maximum 16 mg/24 hours. loperamide (IMODIUM) capsule 4 mg 4 mg, oral, Once as needed, diarrhea, onset of diarrhea, Starting on Tue03/04/20 at 1300, For 1 dose, Maximum recommended dose 16 mg/day LORazepam (ATIVAN) injection 2 mg 2 mg, intravenous, Once as needed, seizures, Starting on Tue03/04/20 at 1301, For 1 dose, Administer STAT and notify MD. For IV administration, dilute with equal volume of 0.9% sodium chloride. Do not exceed a rate of 2 mg/minute methocarbamoL (ROBAXIN) tablet 750 mg 750 mg, oral, Every 6 hours PRN, muscle spasms, muscle aches, Starting on Tue03/04/20 at 1302 Given 03/07/2020 3:18 AM [facility] 750 mg Given 03/06/2020 5:40 PM [facility] 750 mg Given 03/06/2020 6:23 AM [facility] 750 mg multivit yzfphcfz-pacq-ZZ-calcium (THERA-M) tablet 1 tablet 1 tablet, oral, Daily, First dose on Tue03/04/20 at 1345, Indications: Vitamin Deficiency PreventionIndications:Vitamin Deficiency Prevention Given 03/07/2020 8:44 AM [facility] 1 tablet Given 03/06/2020 8:48 AM [facility] 1 tablet Given 03/05/2020 9:21 AM [facility] 1 tablet nicotine (NICODERM CQ) 21 mg patch 24 hour 1 patch 1 patch, transdermal, Administer over 24 Hours, Daily PRN, smoking cessation, Starting on Tue03/04/20 at 1300, per patient request. ondansetron (ZOFRAN) injection 4 mg 4 mg, intravenous, Administer over 2 Minutes, Every 6 hours PRN, nausea, vomiting, Starting on Tue03/04/20 at 1301, May administer for nausea or vomiting unrelieved by oral ondansetron after 30 minutes, or if unable to tolerate oral intake., Indications: Nausea and VomitingIndications:Nausea and Vomiting ondansetron (ZOFRAN) tablet 4 mg 4 mg, oral, Every 6 hours PRN, nausea, vomiting, Starting on Tue03/04/20 at 1301, Indications: Nausea and VomitingIndications:Nausea and Vomiting Given 03/05/2020 12:48 AM [facility] 4 m g Given 03/04/2020 4:57 PM [facility] 4 mg rOPINIRole (REQUIP) tablet 0.5 mg 0.5 mg, oral, Every 12 hours PRN, restless legs, Starting on Tue03/04/20 at 1302 Given 03/06/2020 6:23 AM [facility] 0.5 mg Given 03/05/2020 4:02 PM [facility] 0.5 mg Given 03/04/2020 4:54 PM [facility] 0.5 mg senna (SENOKOT) tablet 2 tablet 2 tablet (17.2 mg), oral, Nightly PRN, constipation, Starting on Tue03/04/20 at 2100 thiamine (VITAMIN B-1) tablet 100 mg 100 mg, oral, Daily, First dose on Tue03/04/20 at 1345, Indications: Thiamine DeficiencyIndications:Thiamine Deficiency Given 03/07/2020 8:44 AM [facility] 10 0 mg Given 03/06/2020 8:48 AM [facility] 100 mg Given 03/05/2020 9:21 AM [facility] 100 mg traZODone (DESYREL) tablet 50 mg 50 mg, oral, Nightly PRN, sleep, insomnia, Starting on Tue03/04/20 at 2100, Repeat dose if insomnia persists greater than 30 minutes. Given 03/05/2020 9:3 3 PM [facility] 50 mg documented in this encounter Active and Recently Administered Medications Times are shown in [facility]. Scheduled Medication Order 03/05/2020 03/06/2020 03/07/2020 buprenorphine (SUBUTEX) sublingual tablet 2 mg (COMPLETED)(Linked Group 1) 2 mg, sublingual, Every 8 hours, First dose on Tue03/05/20 at 1600, For 2 doses, Indications: Opioid Withdrawal 1550 (Given - Provider: Kiki Palacios, RN) 0053 (Given - Provider: Wagner Hawthorne RN) buprenorphine (SUBUTEX) sublingual tablet 2 mg (COMPLETED)(Linked Group 1) 2 mg, sublingual, Every 12 hours, First dose on Tue03/06/20 at 0800, For 3 doses, Indications: Opioid Withdrawal 0848 (Given - Provider: Kiki Palacios RN)1900 (Given - Provider: Kiki Palacios RN) 0845 (Given - Provider: Lucas Muñoz RN) buprenorphine (SUBUTEX) sublingual tablet 4 mg (COMPLETED)(Linked Group 1) 4 mg, sublingual, Every 8 hours, First dose on Tue03/04/20 at 1600, For 3 doses, Date/Time of Last Opioid Use: 03/03/2020 3pm RESCHEDULE administration time if needed., Indications: Opioid Withdrawal 0922 (Given - Provider: Alyssa Fitzgerald, ZANE) chlordiazePOXIDE (LIBRIUM) capsule 25 mg (COMPLETED)(Linked Group 2) 25 mg, oral, Every 4 hours, First dose on Tue03/04/20 at 1430, For 6 doses, Indications: anxiety 0252 (Given - Provider: Ernestina Rodriguez, RN)0609 (Given - Provider: Ernestina Rodriguez, RN)1054 (Given - Provider: Alyssa Fitzgerald, RN) folic acid (FOLVITE) tablet 1 mg 1 mg, oral, Daily, First dose on Tue03/04/20 at 1345, Indications: Folate Deficiency 0921 (Given - Provider: Alyssa Fitzgerald, ZANE) 0848 (Given - Provider: Kiki Palacios RN) 0844 (Given - Provider: Lucas Muñoz, ZANE) multivit daghsqkj-qokh-KM-calcium (THERA-M) tablet 1 tablet 1 tablet, oral, Daily, First dose on Tue03/04/20 at 1345, Indications: Vitamin Deficiency Prevention 0921 (Given - Provider: Alyssa Fitzgerald, RN) 0848 (Given - Provider: Kiki Palacios RN) 0844 (Given - Provider: Lucas Muñoz, ZANE) thiamine (VITAMIN B-1) tablet 100 mg 100 mg, oral, Daily, First dose on Tue03/04/20 at 1345, Indications: Thiamine Deficiency 0921 (Given - Provider: Alyssa Fitzgerald, RN) 0848 (Given - Provider: Kiki Palacios RN) 0844 (Given - Provider: Lucas Muñoz RN) PRN Medication Order 03/05/2020 03/06/2020 03/07/2020 acetaminophen (TYLENOL) tablet 500 mg 500 mg, oral, Every 4 hours PRN, fever, temperature greater than 38 C (100.4 F), Starting on Tue03/04/20 at 1300 aluminum-magnesium hydroxide-simethicone (MAALOX) 40-40-4 mg/mL oral suspension 30 mL 30 mL, oral, Every 6 hours PRN, dyspepsia, Starting on Tue03/04/20 at 1301 bisacodyL (DULCOLAX) suppository 10 mg 10 mg, rectal, Daily PRN, other, no BM in 48 hours, Starting on Tue03/04/20 at 1301, Indications: constipation chlordiazePOXIDE (LIBRIUM) capsule 25 mg(Linked Group 2) 25 mg, oral, Every 6 hours PRN, other, mild anxiety - patient reported scale of 1-4, Starting on Tue03/05/20 at 1430, Indications: anxiety 1740 (Given - Provider: Kiki Palacios RN) cloNIDine (CATAPRES) tablet 0.1 mg 0.1 mg, oral, Every 2 hours PRN, high blood pressure, hot/cold sweats or anxiety, Starting on Tue03/04/20 at 1302, Hold for BP less than 90/60 or heart rate less than 60. Max dose 1.2 mg per 24 hours., Indications: Opioid Withdrawal Symptoms 0047 (Given - Provider: Ernestina Rodriguez ZANE)1054 (Given - Provider: Alyssa Fitzgerald, ZANE)1602 (Given - Provider: Kiki Palacios, RN) 1750 (Given - Provider: Kiki Palacios, ZANE) dicyclomine (BENTYL) tablet 20 mg 20 mg, oral, Every 6 hours PRN, abdominal discomfort, Starting on Tue03/04/20 at 1302, Indications: Abdominal Pain with Cramps 0047 (Given - Provider: Ernestina Rodriguez, ZANE)1603 (Given - Provider: Kiki Palacios RN) 1740 (Given - Provider: Kiki Palacios RN) hydrOXYzine (ATARAX) tablet 50 mg 50 mg, oral, Every 6 hours PRN, other, mild anxiety - patient reported scale of 1-4, Starting on Tue03/04/20 at 1302, May administer together with PRN chlordiazePOXIDE (LIBRIUM)., Indications: anxiety 2133 (Given - Provider: Wagner Hawthorne RN) 0623 (Given - Provider: Wagner Hawthorne RN) 0318 (Given - Provider: Wagner Hawthorne RN) hydrOXYzine (VISTARIL) injection 50 mg 50 mg, intramuscular, Every 6 hours PRN, other, breakthrough anxiety if oral hydroxyzine is not effective after 30 minutes or patient reported scale of 5-10., Starting on Tue03/04/20 at 1302 ibuprofen (ADVIL,MOTRIN) tablet 600 mg 600 mg, oral, Every 8 hours PRN, 1st line for pain, pain less than 5/10, Starting on Tue03/04/20 at 1300 1601 (Given - Provider: Kiki Palacios RN) 0623 (Given - Provider: Wagner Hawthorne RN) 0318 (Given - Provider: Wagner Hawthorne RN) loperamide (IMODIUM) capsule 2 mg 2 mg, oral, Every 8 hours PRN, diarrhea, loose stool, Starting on Tue03/04/20 at 1300, Maximum 16 mg/24 hours. loperamide (IMODIUM) capsule 4 mg 4 mg, oral, Once as needed, diarrhea, onset of diarrhea, Starting on Tue03/04/20 at 1300, For 1 dose, Maximum recommended dose 16 mg/day 0606 (Return to [facility] - Provider: Ernestina Rodriguez, RN) LORazepam (ATIVAN) injection 2 mg 2 mg, intravenous, Once as needed, seizures, Starting on Tue03/04/20 at 1301, For 1 dose, Administer STAT and notify MD. For IV administration, dilute with equal volume of 0.9% sodium chloride. Do not exceed a rate of 2 mg/minute methocarbamoL (ROBAXIN) tablet 750 mg 750 mg, oral, Every 6 hours PRN, muscle spasms, muscle aches, Starting on Tue03/04/20 at 1302 1054 (Given - Provider: Alyssa Fitzgerald, RN)2133 (Given - Provider: Wagner Hawthorne, ZANE) 0623 (Given - Provider: Wagner Hawthorne, ZANE)1740 (Given - Provider: Kiki Palacios, ZANE) 0318 (Given - Provider: Wagner Hawthorne, ZANE) nicotine (NICODERM CQ) 21 mg patch 24 hour 1 patch 1 patch, transdermal, Administer over 24 Hours, Daily PRN, smoking cessation, Starting on Tue03/04/20 at 1300, per patient request. ondansetron (ZOFRAN) injection 4 mg 4 mg, intravenous, Administer over 2 Minutes, Every 6 hours PRN, nausea, vomiting, Starting on Tue03/04/20 at 1301, May administer for nausea or vomiting unrelieved by oral ondansetron after 30 minutes, or if unable to tolerate oral intake., Indications: Nausea and Vomiting ondansetron (ZOFRAN) tablet 4 mg 4 mg, oral, Every 6 hours PRN, nausea, vomiting, Starting on Tue03/04/20 at 1301, Indications: Nausea and Vomiting 0048 (Given - Provider: Ernestina Rodriguez, ZANE) rOPINIRole (REQUIP) tablet 0.5 mg 0.5 mg, oral, Every 12 hours PRN, restless legs, Starting on Tue03/04/20 at 1302 1602 (Given - Provider: Kiki Palacios, ZANE) 0623 (Given - Provider: Wagner Hawthorne, ZANE) senna (SENOKOT) tablet 2 tablet 2 tablet (17.2 mg), oral, Nightly PRN, constipation, Starting on Tue03/04/20 at 2100 traZODone (DESYREL) tablet 50 mg 50 mg, oral, Nightly PRN, sleep, insomnia, Starting on Tue03/04/20 at 2100, Repeat dose if insomnia persists greater than 30 minutes. 2133 (Given - Provider: Wagner Hawthorne, ZANE) Linked Groups Order Group 1: buprenorphine (SUBUTEX) sublingual tablet 4 mg (COMPLETED)Jump to med 4 mg, sublingual, Every 8 hours, First dose on Tue03/04/20 at 1600, For 3 doses, Date/Time of Last Opioid Use: 03/03/2020 3pm RESCHEDULE administration time if needed., Indications: Opioid Withdrawal Followed by buprenorphine (SUBUTEX) sublingual tablet 2 mg (COMPLETED)Jump to med 2 mg, sublingual, Every 8 hours, First dose on Tue03/05/20 at 1600, For 2 doses, Indications: Opioid Withdrawal Followed by buprenorphine (SUBUTEX) sublingual tablet 2 mg (COMPLETED)Jump to med 2 mg, sublingual, Every 12 hours, First dose on Tue03/06/20 at 0800, For 3 doses, Indications: Opioid Withdrawal Group 2: chlordiazePOXIDE (LIBRIUM) capsule 25 mg (COMPLETED)Jump to med 25 mg, oral, Every 4 hours, First dose on Tue03/04/20 at 1430, For 6 doses, Indications: anxiety Followed by chlordiazePOXIDE (LIBRIUM) capsule 25 mgJump to med 25 mg, oral, Every 6 hours PRN, other, mild anxiety - patient reported scale of 1-4, Starting on Tue03/05/20 at 1430, Indications: anxiety documented in this encounter Orders Medications Ordered That Timoteo ht Not Have Been Administered Count Last Ordered Date First Ordered Date acetaminophen (TYLENOL) tablet 500 mg 1 10/2019 aluminum-magnesium hydroxide -simethicone (MAALOX) 40-40-4 mg/mL oral suspension 30 mL 1 03/04/2020 bisacodyL (DULCOLAX) suppository 10 mg 1 hydrOXYzine (VISTARIL) injection 50 mg 1 loperamide (IMODIUM) capsule 2 mg 1 020 loperamide (IMODIUM) capsule 4 mg 1 020 LORazepam (ATIVAN) injection 2 mg 1 020 nicotine (NICODERM CQ) 21 mg patch 24 hour 1 patch 1 03/04/2020 ondansetron (ZOFRAN) injection 4 mg 1 03/04 senna (SENOKOT) tablet 2 tablet 1 0 Nursing Count Last Ordered Date First Orde red Date WEIGH PATIENT 1 03/04/2020 CORE MEASURES Count Last Ordered Date First Ord ered Date REASON FOR NO VTE PROPHYLAXIS AT ADMISSION 1 03/04/2020 documented in this encounter
--- OUTSIDE RECORDS SUMMARY | 2024-03-13 02:23 | XMS_ITS | Encounter Summary ---
Author Organization [facility] Healthcare Address [address] [place] [id number] Care Team Providers Care Ophthalmic Assistant Name Role Phone Unavailable Primary Care Provider Unavailabl e Encounter Details Date Type Department Care Team (Latest Contact Info) Description 12/25/2015 1:24 PM CDT - 12/25/2015 11:59 PM CDT Hospital Encounter [facility] Poisoning by unspecified drugs, medicaments and biological substances, undetermined, initial encounter; Unspecified place or not applicable; Engages in activity; Other specified events, undetermined intent, initial encounter Social History Tobacco Use Types Packs/Day Years Used Date Smoking Tobacco: Never Assessed Comments Unknown Sex and Gender Information Value Date Recorded Sex Assigned at Not on file 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
--- OUTSIDE RECORDS SUMMARY | 2024-03-13 02:23 | XMS_ITS | Encounter Summary ---
Author Organization [facility] Healthcare Address [address] [place] [address] Care Team Providers Care Automation And Controls Supervisor Name Role Phone Unavailable Primary Care Provider Unavailabl e Encounter Details Date Type Department Care Team (Late st Contact Info) Description 03/14/2014 11:53 AM DEVELOPMENT ARCHITECT - 03/17/2014 3:44 PM DEVELOPMENT ARCHITECT [place] [id number] [id number] Drug withdrawal (HCC); Opioid abuse (HCC); Bipolar affective disorder (HCC); Migraine; History of allergy to other antibiotic agent; History of allergy to other specified medicinal agents; Acquired absence of both cervix and uterus Social History Tobacco Use Types Packs/Day Years Used Date Smoking Tobacco: Never Assessed Comments Unknown Sex and Gender Information Value Date Recorded Sex Assigned at Not on file Legal Sex Female 3:16 AM DEVELOPMENT ARCHITECT Gender Identity Not on file Sexual Orientation Not on file documented as of this encounter Last Filed Vital Signs Vital Sign Reading Time Taken Comments Blood Pressure 113/60 03/17/2014 12:05 PM DEVELOPMENT ARCHITECT Pulse 52 03/17/2014 12:05 PM DEVELOPMENT ARCHITECT Temperature - - Respiratory Rate - - Oxygen Saturation - - Inhaled Oxygen Concentration - - Weight 69.7 kg (153 lb 10.6 oz) 014 12:16 PM DEVELOPMENT ARCHITECT Height 162.6 cm (5' 4.02 ) 03/14/2014 1 2:16 PM DEVELOPMENT ARCHITECT Body Mass Index 26.36 03/14/2014 12:16 PM DEVELOPMENT ARCHITECT documented in this encounter Discharge Summaries * ProviderJazmin MD - 03/17/2014 12:00 AM CST DISCHARGE SUMMARY Patient: MARGY SALDANA Account: [id number] Room No: 505-02 : 1980 Patient Type: IP Attend.: Arslan Funes M.D. Admit Date: 03/14/2014 Dict.: Arslan Funes M.D. Disch. Date: 03/17/2014 Principal Diagnosis: Acute opiate withdrawal. Chief Complaint and Brief History of Present Illness: Please see History and Physical. Hospital Course: The patient underwent successful medical stabilization on the [facility] service with a methadone taper and other medications for symptomatic withdrawal. She is now stable and ready for discharge home. Discharge Medications: 1. Wellbutrin SR 150 mg daily 2. Diazepam 10 mg t.i.d. p.r.n. for anxiety. 3. Depakote ER 500 mg daily. 4. Clonidine 0.1 mg t.i.d. p.r.n. hot flashes and sweats. Activity and Diet: As tolerated. Followup Care: As per [facility]. Arslan Funes M.D. DLS/ct TD: 03/18/2014 03:50 Electronically Authenticated by: Arslan Funes MD On 03/18/2014 06:40 AM DEVELOPMENT ARCHITECT documented in this encounter H&P Notes * Provider, MD Jazmin - 03/14/2014 12:00 AM CST HISTORY AND PHYSICAL Patient: MARGY SALDANA Account: [id number] Room No: [id number] : 1980 Patient Type: IP Attend.: Arslan Funes M.D. Admit Date: 03/14/2014 Dict.: Arslan Funes M.D. Disch. Date: REASON FOR ADMISSION: Acute opiate withdrawal. CHIEF COMPLAINT/HISTORY OF PRESENT ILLNESS: This is a very pleasant 33-year-old female with a several-year history of using IV heroin, last use the day before admission, who is admitted to with symptoms of acute opiate withdrawal. She was complaining of cramping, chills, nausea, muscle aches, goose bumps, nasal congestion, restlessness, tremor, tearing, sweating, and yawning. As I am seeing her she already has been started on a methadone taper. She was able to get a little bit of sleep but still feels fairly uncomfortable because of the sweats and nausea. Otherwise, no complaints at this time. ALLERGIES: AMOXICILLIN and IMITREX. CURRENT MEDICATIONS: Wellbutrin and Depakote. PAST MEDICAL HISTORY: 1. Bipolar affective disorder. 2. Migraines. 3. Status post hysterectomy. SOCIAL HISTORY: She does not drink alcohol or smoke cigarettes. FAMILY HISTORY: Noncontributory. REVIEW OF SYSTEMS: She denies fever, ear or throat pain, neck pain or stiffness, chest pain or shortness of breath, vomiting, constipation, diarrhea, dysuria, hematuria, focal weakness or paresthesias, skin rashes, leg swelling, or headaches. PHYSICAL EXAMINATION: Admission vital signs: Temperature 98.1, pulse 78, respirations 18, blood pressure 107/66, saturation 93% on room air. General: She appears fatigued, otherwise in no acute distress. Respirations are not labored. HEENT: Sclerae are clear. Oropharynx is dry. Neck is supple with no adenopathy or thyromegaly. Heart: Regular rhythm without murmurs. Lungs: Clear to auscultation without wheezes or crackles. Abdomen: Belly is soft and nontender with no obvious hepatosplenomegaly. Extremities: No clubbing, cyanosis or edema. Skin: Very clammy. Neurological: She is alert and appropriate. LABORATORY AND X-RAY DATA: White blood cell count is 7.0, hemoglobin 11, hematocrit 36, platelets 268,000, MCV low at 80. Coagulation studies are normal. Amylase and lipase are normal. Sodium 140, potassium 4.0, chloride 104, bicarb 31, creatinine 0.9, BUN 14, glucose 116. Liver function tests were unremarkable. Urinalysis is still pending. ASSESSMENT: Acute opiate withdrawal. PLAN: Continue medical stabilization on the [facility] service with methadone taper and medications for symptomatic relief including sweats and nausea. I will also continue her home medicines of Depakote and Wellbutrin. Further disposition to follow. Arslan Funes M.D. DLS/ms TD: 03/15/2014 16:38 Electronically Authenticated by: Arslan Funes MD On 03/16/2014 06:01 AM DEVELOPMENT ARCHITECT documented in this encounter Plan of Treatment Not on file documented as of this encounter Procedures Procedure Name Priority Date/Time Associated Diagnosis Comments DISCHARGE LABORATORY CUMULATIVE REPORT 03/17/2014 PLASMA PROTHROMBIN TIME (PT) Routine 03/14/2014 10:47 PM DEVELOPMENT ARCHITECT PLASMA PARTIAL THROMBOPLASTIN TIME (PTT) Routine 03/14/2014 10:47 PM DEVELOPMENT ARCHITECT PLASMA LIPASE Routine 03/14/2014 10:47 PM DEVELOPMENT ARCHITECT PLASMA COMPREHENSIVE METABOLIC PANEL Routine 03/14/2014 10:47 PM DEVELOPMENT ARCHITECT PLASMA AMYLASE Routine 03/14/2014 10:47 PM DEVELOPMENT ARCHITECT BLOOD CELL COUNT (CBC), MORPHOLOGIC EXAM Routine 03/14/2014 10:47 PM DEVELOPMENT ARCHITECT URINE ANALYSIS AND MICROSCOPY Routine 03/14/2014 1:15 PM DEVELOPMENT ARCHITECT URINE DRUG SCREEN Routine 03/14/2014 1:1 4 PM DEVELOPMENT ARCHITECT URINE CHORIONIC GONADOTROPIN (HCG) Routine 03/14/2014 1:14 PM DEVELOPMENT ARCHITECT documented in this encounter Results * DISCHARGE LABORATORY CUMULATIVE REPORT (03/17/2014) Narrative 03/17/2014 Ordered by an unspecified provider. us Historical Provider LAB BLOOD ORDERABLES Rachna l Result * Plasma prothrombin time (PT) (03/14/2014 10:47 PM DEVELOPMENT ARCHITECT) Prothrombin time (PT) 14.1 11.5 - 15.5 seconds HISTORICAL RESULTS INR 1.05 0.81 - 1.21 HISTORIC AL RESULTS Plasma 03/14/2014 10:4 7 PM DEVELOPMENT ARCHITECT Arslan Funes MD LAB BLOOD ORDERABLES Final Resu lt Performing Organization Address [facility] de Phone Number HISTORICAL RESULTS * Plasma partial thromboplastin time (PTT) (03/14/2014 10:47 PM DEVELOPMENT ARCHITECT) APTT 30.1 21.5 - 39.0 seconds HISTORICAL RESULTS Plasma 03/14/2014 10:4 7 PM DEVELOPMENT ARCHITECT Arslan Funes MD LAB BLOOD ORDERABLES Final Resu lt Performing Organization Address [facility] de Phone Number HISTORICAL RESULTS * (ABNORMAL) Blood cell count (CBC), morphologic exam (03/14/2014 10:47 PM DEVELOPMENT ARCHITECT) WBC 7.3 3.8 - 9.8 K/cumm HISTORICAL RESULTS RBC 4.55 4.20 - 5.20 M/cumm HISTORICAL RESULTS Hgb 11.8(L) 12.0 - 15.0 g/dl HISTORICAL RESULTS Hct 36.5(L) 37.0 - 47.0 % HISTORICAL RESULTS MCV 80.2(L) 82.0 - 96.0 fl HISTORICAL RESULTS MCH 25.9(L) 27.0 - 32.0 pg HISTORICAL RESULTS MCHC 32.3 29.0 - 35.0 g/dl HISTORICAL RESULTS Platelets 268 150 - 450 K/cumm HISTORICAL RESULTS RDW 42.3 36.4 - 46.3 fl HISTORICAL RESULTS Rdw 14.5 11.5 - 14.5 % HISTORICAL RESULTS MPV 10.3 8.6 - 12.6 fl HISTORICAL RESULTS Neutrophils 56.2 42.0 - 85.0 % HISTORICAL RESULTS Neutrophils, abs 4.1 2.1 - 8.5 K/cumm HISTORICAL RESULTS Lymphocytes 32.7 16.0 - 52.0 % HISTORICAL RESULTS Lymphocytes, abs 2.4 0.8 - 5.2 K/cumm HISTORICAL RESULTS Monos 7.9 1.0 - 13.0 % HISTORICAL RESULTS Monocytes, absolute 0.6 0.0 - 1.3 K/cumm HISTORICAL RESULTS Eosinophils 2.5 0.0 - 7.0 % HISTORICAL RESULTS Eosinophils, abs 0.2 0.0 - 0.7 K/cumm HISTORICAL RESULTS Basophils 0.4 0.0 - 4.0 % HISTORICAL RESULTS Basophils, abs 0.0 0.0 - 0.4 K/cumm HISTORICAL RESULTS Young granulocytes, % 0.3 0.0 - 1.0 % HISTORICAL RESULTS Young granulocyte 0.02 0.00 - 0.10 K/cumm HISTORICAL RESULTS NRBC 0.0 0.0 - 0.2 #/100 WBC HISTORICAL RESULTS NRBC, abs 0.00 0.00 - 0.01 K/cumm HISTORICAL RESULTS Blood specimen (specimen) 03/14/2014 10:47 PM DEVELOPMENT ARCHITECT Arslan Funes MD LAB BLOOD ORDERABLES Final Resu lt HISTORICAL RESULTS * Plasma comprehensive metabolic panel (03/14/2014 10:47 PM DEVELOPMENT ARCHITECT) BUN 14 8 - 24 mg/dl HISTORICAL RESULTS Glucose 116 70 - 199 mg/dl HISTORICAL RESULTS Sodium 140 135 - 145 mmol/L HISTORICAL RESULTS K, pl 4.0 3.5 - 5.1 mmol/L HISTORICAL RESULTS Chloride 104 100 - 114 mmol/L HISTORICAL RESULTS CO2 31 22 - 32 mmol/L HISTORICAL RESULTS Creatinine 0.93 0.60 - 1.30 mg/dl HISTORICAL RESULTS AST 19 7 - 40 Units/L HISTORICAL RESULTS ALT 18 1 - 45 Units/L HISTORICAL RESULTS Alk phos 55 30 - 110 Units/L HISTORICAL RESULTS Calcium 9.5 8.4 - 10.5 mg/dl HISTORICAL RESULTS Bilirubin 0.50 0.10 - 1.30 mg/dl HISTORICAL RESULTS Protein, pl 6.3 6.0 - 8.3 g/dl HISTORICAL RESULTS Alb 3.4 3.2 - 4.8 g/dl HISTORICAL RESULTS Globulin 2.9 2.0 - 4.3 g/dl HISTORICAL RESULTS A. gap 9 8 - 16 mmol/L HISTORICAL RESULTS eGFR 69 90 - 200 ml/min/1.7 3 m2 HISTORICAL RESULTS Comment: If this individual is -[place], multiply result by 1.21 Repeated results of less than 60 is indicative of chronic kidney disease. MDRD formula has not been validated on individuals greater than 70 years old. Plasma 03/14/2014 10:4 7 PM DEVELOPMENT ARCHITECT Arslan Funes MD LAB BLOOD ORDERABLES Final Resu lt Performing Organization Address [facility] de Phone Number HISTORICAL RESULTS * Plasma lipase (03/14/2014 10:47 PM DEVELOPMENT ARCHITECT) Lip 32 20 - 50 Units/L HISTORICAL RESULTS Plasma 03/14/2014 10:4 7 PM DEVELOPMENT ARCHITECT Arslan Funes MD LAB BLOOD ORDERABLES Final Resu Performing Organization Address [facility] de Phone Number HISTORICAL RESULTS * Plasma amylase (03/14/2014 10:47 PM DEVELOPMENT ARCHITECT) Sherri, pl 48 28 - 100 Units/L HISTORICAL RESULTS Plasma 03/14/2014 10:4 7 PM DEVELOPMENT ARCHITECT Arslan Funes MD LAB BLOOD ORDERABLES Final Resu Performing Organization Address [facility] de Phone Number HISTORICAL RESULTS * (ABNORMAL) Urine analysis and microscopy (03/14/2014 1:15 PM DEVELOPMENT ARCHITECT) Color, ur Yellow HISTORICAL RESULTS Clarity, ur Cloudy(A) Clear HISTORIC AL RESULTS pH, ur 5.0 5 - 7 HISTORICAL RESULTS Specific gravity, ur 1.026 1.001 - 1.033 HISTORICAL RESULTS Protein, ur Negative Negative HISTORIC AL RESULTS Glucose, ur Negative Negative HISTORIC AL RESULTS Ketones, ur Negative Negative HISTORIC AL RESULTS Bilirubin, ur Negative Negative HISTOR ICAL RESULTS U Blood Negative Negative HISTORICAL RESULTS Urobilinogen, quant, ur Normal 0.2 - 1.0 mg/dl HISTORICAL RESULTS Nitrites, ur Negative Negative HISTORI ALIN RESULTS Leukocyte esterase, ur Negative Negative HISTORICAL RESULTS WBC, ur 0 - 5 0 - 5 /hpf HISTORICA L RESULTS RBC, ur 0 - 5 0 - 5 /hpf HISTORICA L RESULTS Epithelial cells, ur 20 - 40 /hpf HISTORICAL RESULTS Bacteria, ur Trace HISTORI ALIN RESULTS Mucus Present HISTORICAL RESULTS Calcium oxalate crystals, ur Present HISTORICAL RESULTS Urine 03/14/2014 1:15 PM DEVELOPMENT ARCHITECT Result [facility] Arslan Funes MD LAB BLOOD ORDERABLES Final Resu lt Performing Organization Address [facility] de Phone Number HISTORICAL RESULTS * Urine chorionic gonadotropin (HCG) (03/14/2014 1:14 PM DEVELOPMENT ARCHITECT) HCG, ur Negative HISTORICAL RESULTS Specific gravity, ur 1.027 HISTORICAL RESULTS Urine 03/14/2014 1:14 PM DEVELOPMENT ARCHITECT Result [facility] Arslan Funes MD LAB BLOOD ORDERABLES Final Resu lt Performing Organization Address [facility] de Phone Number HISTORICAL RESULTS * (ABNORMAL) Urine drug screen (03/14/2014 1:14 PM DEVELOPMENT ARCHITECT) Amphetamine, ur Negative Negative HISTORICAL RESULTS Barbiturates, ur Negative Negative HISTORICAL RESULTS Benzodiazepine s, ur Positive(A) Negative HISTORICAL RESULTS Cocaine, ur Negative Negative HISTORIC AL RESULTS Cannabinoids, ur Negative Negative HISTORICAL RESULTS Methadone, ur Negative Negative HISTOR ICAL RESULTS Opiates, qual, ur Positive(A) Negative HISTORICAL RESULTS Comment: Opiate immuno-reactive compound(s) are present in the urine. ??If clinically required, additional testing can be performed for Opiate identification. ??Contact the laboratory for further details. Phencyclidine, qual, ur Negative Negative HISTORICAL RESULTS Propoxyphene, ur Negative Negative HISTORICAL RESULTS Concentration, ur Average HISTORICAL RESULTS Urine 03/14/2014 1:14 PM DEVELOPMENT ARCHITECT Result [facility] Arslan Funes MD LAB BLOOD ORDERABLES Final Resu lt Performing Organization Address [facility] de Phone Number HISTORICAL RESULTS documented in this encounter Visit Diagnoses Diagnosis Drug withdrawal (HCC) Drug withdrawal Opioid abuse (HCC) Nondependent opioid abuse, unspecified Bipolar affective disorder (HCC) Bipolar disorder, unspecified Migraine Migraine, unspecified, without mention of intractable migraine without mention of status migrainosus History of allergy to other antibiotic agent History of allergy to other specified medicinal agents Acquired absence of both cervix and uterus documented in this encounter
--- OUTSIDE RECORDS SUMMARY | 2024-03-13 02:23 | XMS_ITS | Encounter Summary ---
Author Organization [facility] Healthcare Address [address] [place] [address] Care Team Providers Care Propagation Worker Name Role Phone No, Physician Primary Care Provider [phone] Rashaun Benavidez MD Unavailable [phone] Miscellaneous, Not In File Unavailable Unava ilable Reason for Visit * Auth/Cert (Routine) Specialty Diagnoses / Procedures Referred By Contac t Referred To Contact Diagnoses Ventricular tachycardia (HCC) ventricular tachycardia Procedures NA Referral ID Status Reason Start Date Expiration Date Visits Re quested Visits Authorized [id number] 1 1 Encounter Details Date Type Department Care Team (Latest Contact Info) Description 07/01/2022 8:19 PM CDT - 07/08/2022 7:03 PM CDT Hospital Encounter [address] [address] rBidgett Fry MD [address] [phone] [place] [address] Srinivasan Lizama [place] [id number] [place] [id number] Alvin Hilario [place] [id number] [place] [address] [place] [id number] [address] Ventricular tachycardia (HCC) (Primary Dx) Discharge Disposition: Discharge to home [...] often do you attend chur ch or judaism services? Patient declined 07/05/2022 Do you belong to any clubs o r organizations such as restorationist groups, unions, fraternal or athletic groups, or [...] place to sleep or slept in a long-term (including now)? 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 Gender Identity Not on file Sexual Orientation Not on file documented as of this encounter Last Filed Vital Signs Vital Sign Reading Time Taken Comments Blood Pressure 135/87 07/08/2022 4:25 PM CDT Pulse 89 07/08/2022 4:25 PM CDT Temperature 36.8 ??C (98.2 ??F) 07/08/2022 4:25 PM CD T Respiratory Rate 18 07/08/2022 4:25 PM CDT Oxygen Saturation 94% 07/08/2022 4:25 PM CDT Inhaled Oxygen Concentration - - Weight 78.9 kg (173 lb 15.1 oz) 07/03/2022 5:00 AM CDT Height 165.1 cm (5' 5 ) 07/01/2022 9:26 PM CDT Body Mass Index 28.95 07/01/2022 9:26 PM CDT documented in this encounter Discharge Summaries * Naomi Foote MD - 07/08/2022 6:46 PM CDT Inpatient Discharge Summary Patient Name - Margy Saldana Patient Age - 41 yrs Patient - [id number] [facility] - [id number] Document Creation Date: 07/08/2022 Admitting Provider, MD: Bridgett Fry MD Discharge Provider, MD: Naomi Foote MD Primary Care Physician at Discharge: Sadaf, Physician [phone] Admission Date: 07/01/2022 Discharge Date/time: 07/08/2022 Admission Location: [facility] LOS - LOS: 7 days DETAILS OF HOSPITAL STAY Hospital Problems/Diagnoses Principal Problem: Ventricular tachycardia (HCC) Reason for Hospitalization: Per H&P: 41 year old female w/ PMH of HTN, and substance abuse w/ opioids. On 06/30 she reports she took a fentanyl pill which she suspects was laced w/ an upper because immediately after taking it she began to experience chest pain and palpitations. EMS was called and she was found to be found in polymorphic ventricular tachycardia. She was initially taken to [facility] where initial treatment consisted of amio, lidocaine and magnesium. She was then taken to the [facility] which demonstrated clean coronary arteries but c/f takotsubo cardiomyopathy. She now arrives to [facility] ICU for ongoing cardiology workup and a consult to EP (Dr. Benavidez). She arrives on a lidocaine gtt. Of note, the patient also utilizes skin popping as an administration vector for fentanyl and has c/f cellulitis to bilateral upper arms. Hospital Course: Polymorphic VT. POA resolved; Pt was on lidocaine gtt, and now d/c Cardio and EP are consulted and monitor. On bb. CMP likely takotsubo. Compensated. Echo from 07/02/22: There is pseudonormal diastolic dysfunction Grade II. Ejection fraction is visually estimated at 28 %. These segments of the LV are hypokinetic mid anterior segment, apical segment, apical lateral segment and apical inferior segment. Discussed with cardiology, lifevest placement prior to dc Cellulitis left arm from skin popping. No warmth; no active drainage; on IV abx; left arm Completed 7 days of IV vac. Will d/c abx and monitor off of abx. Chronic scarring of left arm. cT showed no abscess; showed cellulitis. UTI. ? No reflex urine cx. No symptoms. HTN. BP are now stable. Hypokalemia. Resolved. Hypophosphatemia. resolved Opioid abuse. 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 I also discussed with CM who added multiple places if needed. Discharge Details Physical Exam at Discharge: Discharge Condition: stable Pulse: 89 Resp: 18 BP: 135/87 Temp: 36.8 ??C (98.2 ??F) Weight: 78.9 kg (173 lb 15.1 oz) Pertinent Exam Findings at Discharge: Constitutional: Awake, alert, of sound mind. Non-distressed on room air. Non- toxic appearing. Well-nourished. Eyes: EOMI. Conjunctiva are normal. ENMT: Face, External ears, and Nose are normal appearing. Hearing is intact bilaterally. No pathologic abnormality of the nasal mucosa, septum, or turbinates. Oropharyngeal examination shows moist membranes and no pathological abnormalities. Dentition is age-appropriate. Cardiovascular: Heart Rate and Rhythm Regular. No Murmur. No Jugular Venous Distention. No Carotid Bruit. Distal pulses are intact in the upper extremity. No edema in the lower extremities. Respiratory: Breath sounds are appropriate in all lung street. No wheezing. No rhonchi. No rales. Gastrointestinal: Soft. Non-tender without guarding. Non-distended. No mass Skin: Warm, Dry. Scarring on arms from skin popping; no active infection at this time. Musculoskeletal: No inflamed joints. No significant joint deformities. Neurological: No gross neurological deficits appreciated. Psychiatric: Mood and affect are appropriate. Discharge Disposition: Discharge to home or self care Code Status at Discharge: Full Code Active Issues & Recommended Plan for Follow-up: Allergies: Sumatriptan, Sulfa (sulfonamide antibiotics), and Amoxicillin Discharge Medications: Your medication list START taking these medications Instructions Last Dose Given Next Dose Due metoprolol XL 25 mg extended release tablet Commonly known as: TOPROL-XL Start taking on: July 09, 2022 Take 1 tablet (25 mg total) by mouth daily CHANGE how you take these medications Instructions Last Dose Given Next Dose Due losartan 25 mg tablet Commonly known as: COZAAR Start taking on: July 09, 2022 What changed: medication strength how much to take Take 0.5 tablets (12.5 mg total) by mouth daily CONTINUE taking these medications Instructions Last Dose Given Next Dose Due chlordiazePOXIDE 25 mg capsule Commonly known as: LIBRIUM Take 1 capsule (25 mg total) by mouth 3 (three) times a day as needed for anxiety Where to Get Your Medications These medications were sent to [facility] [place] - [address] [facility] [address] [facility] [address] losartan 25 mg tablet metoprolol XL 25 mg extended release tablet Time Spent in Discharge Process: I have spent 40 minutes on discharge planning activities. Time spent was on Coordination of care, Follow up , Counselling with patient/family, and discharge exam Test Results Pending at Discharge (If Blank, None Found): Operative Procedures Performed (If Blank, None Found): Outpatient Follow-Up: Future Appointments Date Time Provider Department Center 08/19/2022 1:30 PM Ronny Barrientos MD [facility] Specialty 10/19/2022 9:00 AM Rashaun Benavidez MD [facility] Specialty Contact Information for Follow-ups [facility] Next Steps: Follow up Instructions: Please call [facility] Primary Care Provider referral line at [phone] option 1 or to schedule a new PCP appointment as they have been trying to contact you! You may also call [phone] ([phone]) or [phone]. Comments: I attest that the patient has agreed to be contacted by a insurance follow up representative of [facility] to schedule the patient with a new primary care provider: yes What is the goal time frame for this appointment? Low 14 days Should the post-discharge visit be performed virtually? no Who should be contacted to schedule the appointment Patient [phone] Phone number for scheduling contact: [phone] Please list the patient's Collar Starcher and phone number: Angelita DEGROOT [phone] Questions: Please select the performing region: [facility] # of visits: 1 Referral Status: Do Not Schedule [facility] Behavioral Health [address] [facility] [address] [facility] [address] Next Steps: Follow up Behavioral Health Response [address] [facility] [address] [facility] [address] Next Steps: Follow up [facility] [address] [facility] [address] Next Steps: Call Instructions: Addiction Recovery, Counseling, Crisis & Urgent Care, Housing, , Pharmacy, Psychiatric Care and more. [facility] [address] [address] Next Steps: Follow up Instructions: [facility] [employer] provides primary care, substance use, mental health treatment, dentistry, housing, and credit counseling. Rashaun Benavidez MD Specialty: Cardiology, [employer], Cardiovascular Disease, Internal Medicine, Clinical Cardiac Electrophysiology Relationship: Consulting Physician [address] [facility] [address] [address] Next Steps: Follow up Instructions: call office for follow up with software applications designer outpatient. Questions: Instructions for follow-up (appointment date and time): call office for follow up with software applications designer outpatient. To provider: RASHAUN BENAVIDEZ Miscellaneous, Not In File Next Steps: Follow up Instructions: Follow-up with PCP in 5-7 days; bring all home medications to appointment Questions: To provider: SVENCELLANEOUS, NOT IN FILE Instructions for follow-up (appointment date and time): Follow-up with PCP in 5- 7 days; bring all home medications to appointment Please schedule an appointment with the following provider(s): [facility] Please call [facility] Primary Care Provider referral line at [phone] option 1 or to schedule a new PCP appointment as they have been trying to contact you! You may also call [phone] ([phone]) or [phone]. [facility] Behavioral Health [address] [facility] [address] [facility] [address] Follow up Behavioral Health Response [address] [facility] [address] [facility] [address] Follow up [address] [address] Call Addiction Recovery, Counseling, Crisis & Urgent Care, Housing, , Pharmacy, Psychiatric Care and more. [address] [address] Follow up [facility] provides primary care, substance use, mental health treatment, dentistry, housing, and credit counseling. Rashaun Benavidez MD [address] [facility] [address] [address] call office for follow up with software applications designer outpatient. Miscellaneous, Not In File Follow-up with PCP in 5-7 days; bring all home medications to appointment ANCILLARY INFORMATION Other Procedures & Diagnostic Tests: ECG 12 lead Result Date: 07/03/2022 Vent Rate: 90 bpm RR Interval: 664 msec WI Interval: 167 msec QRS Duration: 90 msec QT Interval: 416 msec QTC Interval: 464 msec P-R-T [place]: 29 - -4 - 79 degrees SINUS RHYTHM POSSIBLE LEFT ATRIAL ENLARGEMENT [-0.1mV P WAVE IN V1/V2] MODERATE T-WAVE ABNORMALITY, CONSIDER ANTERIOR ISCHEMIA [-0.1+ mV T WAVE IN V3/V4] ABNORMAL ECG Compared to prior EKG, heart rate has decreased Anterior T- wave inversions are now evident ST elevations are no longer present Electronically Signed By: Néstor Norris MD ECG 12 lead Result Date: 07/02/2022 Vent Rate: 125 bpm RR Interval: 480 msec WI Interval: 168 msec QRS Duration: 88 msec QT Interval: 316 msec QTC Interval: 390 msec P-R-T [place]: 27 - -16 - 48 degrees SINUS TACHYCARDIA MINIMAL VOLTAGE CRITERIA FOR LVH, CONSIDER NORMAL VARIANT [MEETS CRITERIA IN ONE OF: R(aVL), S(V1), R(V5), R(V5/V6)+S(V1)] ANTERIOR MYOCARDIAL INFARCTION , PROBABLY RECENT [40+ ms Q WAVE AND/OR ST/T ABNORMALITY IN V3/V4] No change from prior EKG Electronically Signed By: Néstor Norris MD ECG 12 lead Result Date: 07/02/2022 Vent Rate: 121 bpm RR Interval: 495 msec WI Interval: 168 msec QRS Duration: 130 msec QT Interval: 284 msec QTC Interval: 356 msec P-R-T [place]: 16 - -34 - 85 degrees SINUS TACHYCARDIA LEFTWARD AXIS VOLTAGE CRITERIA FOR LVH ANTERIOR MYOCARDIAL INFARCTION , OF INDETERMINATE AGE T-WAVE ABNORMALITY, CONSIDER ISCHEMIA Electronically Signed By: Chas Hirsch MD, [facility] XR Chest 1 View Result Date: 07/02/2022 EXAMINATION: XR CHEST 1 VIEW HISTORY: Hypoxia ORDER DATE: 07/01/2022 8:40 PM FINDINGS: The lungs are clear of infiltrate. There is a PICC line in the SVC The cardiac and mediastinal outlines are unremarkable. There are no significant pleural effusions . No significant abnormalities are noted in the spine or remainder of the bony thorax. NO ACUTE PULMONARY CHANGE. Electronically signed by: Poli Le M.D. Transthoracic Echo (TTE) Complete W Doppler/CF Result Date: 07/02/2022 [place] [address] Echocardiogram Report Patient Name: MARGY SALDANA : 1980 Study Date: 39:40:23 AM Gender: F Tech: Location: [id number] Ref.Provider: NIK LOGAN Height(Cm): 165 BSA: 1.87 Weight(Kg): 76.3 Heart Rate: 128 BP: 148/98 Quality: Good Order Provider: NIK LOGAN Procedures: Echocardiographic Report: Transthoracic echocardiogram with complete 2D, M-Mode, and color Doppler examination. Indications: Tachycardia. Measurements: 2D/M Mode Doppler Measurement Value Normal Range Measurement Value Normal Range EF Teich 2D 25.3 [ 55.0 - 70.0 ] percent KATARZYNA Vmax 3.15 [ 2.00 - 4.00 ] cm2 EF Mod 4C 28.2 [ 55.0 - 70.0 ] percent AV Mean PG 4 [ 2 - 4 ] mmHg LVIDd 2D 4.13 [ 3.90 - 5.30 ] cm AV Peak Rebel 1.45 [ 1.00 - 1.70 ] m/s LVIDs 2D 3.65 [ 2.30 -3.90 ] cm AV VTI 19.36 cm LVPWd 2D 0.75 [ 0.60 - 1.00 ] cm LVOT Diam 2.06 [ 1.70 - 2.10 ] cm IVSd 2D 0.83 [ 0.60 - 0.90 ] cm LVOT Peak Rebel 1.38 [ 0.70 - 1.10 ] m/s LA Dimension MM 2.85 [ 2.70 - 3.80 ] cm LVOT VTI 20.96 [ 20.00 - 30.00 ] cm AoR Diam MM 2.68 [ 2.60 - 3.70 ] cm MV E Peak Rebel 1.10 [ 0.60 - 1.30 ] m/s LA Volume Index 19.03 [ 16.00 - 28.00 ] cc/m2 MV A Peak Rebel 0.27 [ 1.00 - 1.20 ] m/sACS MM 1.78 cm MV PHT 44 [ 20 - 100 ] msec MVA 5.00 MV Decel Time 118 [ 104 - 258 ] msec PV Peak Rebel 0.78 [ 0.40 - 0.80 ] m/s E' 0.07 E/E' 15.10 Measurement Value Normal Range Measurement Value Normal Range 2D/M Mode Doppler - Findings: Atrial Septum: Normal atrial septum. Left Ventricle: Normal left ventricular wall thickness. Severe global left ventricular systolic dysfunction. There is pseudonormal diastolic dysfunction Grade II. Ejection fraction is visually estimated at 28 %. These segments of the LV are hypokinetic mid anterior segment, apical segment, apical lateral segment and apical inferior segment. Left Atrium: The left atrium is normal in size. Right Ventricle: Normal right ventricular size. Normal right ventricular systolic function. Right Atrium: The right atrium is normal in size. Aortic Valve: Normal structure of the aortic valve. Mitral Valve: Normal structure of the mitral valve. Pulmonic Valve: Normal structure of the pulmonic valve. Tricuspid Valve: Normal structure of the tricuspid valve. Normal right ventricular systolic pressure. Pericardium: Normal pericardium with no significant pericardial effusion. Aorta: Normal aortic root. IVC: Normal size and normal respiratory collapse consistent with normal right atrial pressure (<5 mmHg). Pulmonary Artery:Normal pulmonary artery size. Conclusions: Normal left ventricular wall thickness. Severe global left ventricular systolic dysfunction. There is pseudonormal diastolic dysfunction Grade II. Ejection fraction is visually estimated at 28 %. These segments of the LV are hypokinetic mid anterior segment, apical segment, apical lateral segment and apical inferior segment. Picture could be compatible with Takotsubo or ischemic Cardiomyopathy. Electronically Signed By: Makenzie Saez MD 2022-07-02 10:50:10 CDT CC: CC: US Vein Duplex Upper Extremity Bilateral Complete Result Date: 07/02/2022 EXAMINATION: BILATERAL UPPER EXTREMITY VENOUS DUPLEX EXAM DATE: 07/02/2022 8:00 AM HISTORY: Swelling of the bilateral upper extremity. TECHNIQUE: Ultrasound of the deep and superficial veins in both arms was performed using real-time, spectral analysis and color flow imaging. FINDINGS: There is acuteocclusive superficial venous thrombosis in the left cephalic vein. There is normal blood flow and co mpressibility in the jugular, subclavian, axillary, brachial, radial, ulnar, cephalic (right only) and basilic veins bilaterally. Acute superficial thrombosis of the left cephalic vein. Results discussed with ordering provider approximately 0800 on date of study by performing technologist. Electronically signed by: Arslan De La Cruz II, D.O. Recent Labs: Recent Labs Lab Units 07/08/22 0707/07/22 0508 07/06/22 0517 WBC K/cumm 8.6 12.4* 10.8* HEMOGLOBIN g/dL 11.1* 10.3* 11.4* HEMATOCRIT % 34.9* 31.5* 34.9* PLATELETS K/cumm 305 408* 223 Labs Lab Units 07/08/22 0712 07/07/22 0508 07/06/22 0517 WBC K/cumm 8.6 12.4* 10.8* HEMOGLOBIN g/dL 11.1* 10.3* 11.4* HEMATOCRIT % 34.9* 31.5* 34.9* PLATELETS K/cumm 305 408* 223 Labs Lab Units 07/08/22 1110 07/08/22 0738 07/08/22 0712 07/07/22 2036 07/07/22 1210 07/07/22 0508 07/06/22 1715 07/06/22 0645 07/02/22 0734 07/01/22 2042 SODIUM mmol/L -- -- 140 -- -- 138 -- 137 < > 135 POTASSIUM PLASMA mmol/L -- -- 4.0 -- 3.6 6.3* < > 5.2* < > 5.6* CHLORIDE mmol/L -- -- 103 -- -- 105 -- 102 < > 103 CO2 mmol/L -- -- 29 -- -- 29 -- 28 < > 19* BUN SERUM mg/dL -- -- 8 -- -- 11 -- 10 < > 9 CREATININE mg/dL -- -- 0.92 -- -- 0.90 -- 0.90 < > 0.83 [id number] mL/min/1.73 m2 -- -- 80 -- -- 82 -- 82 < > 91 GLUCOSE mg/dL -- -- 114 -- -- 111 -- 161 < > 138 POC GLUCOSE MONITOR mg/dL 143 < > -- < > -- -- < > -- < > -- CALCIUM mg/dL -- -- 8.8 -- -- 8.4* -- 8.1* < > 8.9 ALBUMIN g/dL -- -- -- -- -- -- -- -- -- 3.9 PHOSPHORUS PLASMA mg/dL -- -- 3.7 -- -- 4.2 -- 3.5 < > 2.4 < > = values in this interval not displayed. Recent Labs Lab Units 07/08/22 1110 07/08/22 0738 07/08/22 0712 07/07/22 2036 07/07/22 1210 07/07/22 0508 07/06/22 1715 07/06/22 0645 07/02/22 0734 07/01/22 2042 SODIUM mmol/L -- -- 140 -- -- 138 -- 137 < > 135 POTASSIUM PLASMA mmol/L -- -- 4.0 -- 3.6 6.3* < > 5.2* < > 5.6* CHLORIDE mmol/L -- -- 103 -- -- 105 -- 102 < > 103 CO2 mmol/L -- -- 29 -- -- 29 -- 28 < > 19* ANIONGAP mmol/L -- -- 8 -- -- 4 -- 7 < > 13 GLUCOSE mg/dL -- -- 114 -- -- 111 -- 161 < > 138 POC GLUCOSE MONITOR mg/dL 143 124 -- < > -- -- < > -- < > -- BUN SERUM mg/dL -- -- 8 -- -- 11 -- 10 < > 9 CREATININE mg/dL -- -- 0.92 -- -- 0.90 -- 0.90 < > 0.83 CALCIUM mg/dL -- -- 8.8 -- -- 8.4* -- 8.1* < > 8.9 ALBUMIN g/dL -- -- -- -- -- -- -- -- -- 3.9 ALK PHOS Units/L -- -- -- -- -- -- -- -- -- 95 ALT Units/L -- -- -- -- -- -- -- -- -- 40 AST Units/L -- -- -- -- -- -- -- -- -- 66* BILIRUBIN TOTAL mg/dL -- -- -- -- -- -- -- -- -- 0.6 < > = values in this interval not displayed. Recent Labs Lab Units 07/01/22 2042 ALK PHOS Units/L 95 BILIRUBIN TOTAL mg/dL 0.6 TOTAL PROTEIN g/dL 7.6 ALT Units/L 40 AST Units/L 66* Recent Labs Lab Units 07/08/22 0712 07/07/22 0508 07/06/22 0645 MAGNESIUM mg/dL 2.0 2.0 2.0 Recent Labs Lab Units 07/01/22 2122 PROTIME (PT) sec 16.1* INR 1.5* APTT sec 26* Lab Results Component Value Date GLUCOSE 143 07/08/2022 GLUCOSE 124 07/08/2022 GLUCOSE 114 07/08/2022 Implant: Implants No active implants to display in this view. General Precautions (If Blank, None Found): Isolation Status: No active isolations Nutritional Status and in-house recommendations: Dietary Orders (From admission, onward) Start Ordered 07/08/22 1217 Adult Diet Restricted; 4 GM Sodium Diet effective now Question Answer Comment (CH) Diet type Restricted Fat / Sodium Restriction: 4 GM Sodium 07/08/22 1216 Anticoagulation Indication: INR: 07/01/2022: 1.5 (H) Warfarin Administrations (last 168 hours) None Oxygen Status: O2 Therapy for the past 12 hrs: O2 Therapy 07/08/22 1625 None (Room air) 07/08/22 1150 None (Room air) 07/08/22 0750 None (Room air) Wound Care Instructions Other Instructions Call provider for: Call provider for: Temperature -Temperature greater than 101 degrees F Call provider for: difficulty breathing or chest pain Call provider for: extreme fatigue Call provider for: hives Call provider for: persistent dizziness or light-headedness Call provider for: redness, tenderness, or signs of infection (pain, swelling, redness, odor or green/yellow discharge around incision site) Call provider for: severe uncontrolled pain Call provider for: headache, visual disturbances, weakness and speech changes Special Instructions Follow up with methadone clinic for continue with abstinence; continue to follow up with your therapist. Active LDAs (If Blank, None Found): Patient Emergency Contact: Primary Emergency Contact: maria l cuevas Immunization Status at Discharge There is no immunization history for the selected administration types on file for this patient. Naomi Foote MD documented in this encounter Discharge Instructions * Discharge Instr - Diet* Ivett Jackson RD - 07/08/2022 12:10 PM CDT Continue to follow a low sodium diet and limit sodium intake to less than 2,000mg per day. Avoid foods that are high sources of sodium, such as fast foods, fried/breaded foods, pickled foods, canned goods, deli meats and gravies/sauces. Use alternatives to season foods such as . LUIS ANTONIO and other he rbs. If you have any further diet-related questions, please call the dietitian's office at [phone]. Additional resources are available online from the [place] at www.heart.org/en/healthy-living/healthy-eating documented in this encounter Medications at Time of Discharge chlordiazePOXIDE (LIBRIUM) 25 mg capsuleIndicatio ns:anxiety Take 1 capsule (25 mg total) by mouth 3 (three) times a day as needed for anxiety or withdrawal symptoms 30 capsule 07/08/2022 3 chlordiazePOXIDE (LIBRIUM) 25 mg capsuleIndicatio ns:anxiety Take [...] 07/09/2022 3 documented as of this encounter Ordered Prescriptions Prescription Sig Dispense Quantity Refills Last Filled Start Date End Date chlordiazePOXIDE (LIBRIUM) 25 mg capsuleIndications :anxiety Take 1 capsule (25 mg total) by mouth 3 (three) times a day as needed for anxiety or withdrawal symptoms 30 capsule 07/10/2022 3 chlordiazePOXIDE (LIBRIUM) 25 mg capsuleIndications :anxiety Take 1 capsule (25 mg total) by mouth 3 (three) times a day as needed for anxiety or withdrawal symptoms 30 capsule 07/08/2022 3 metoprolol XL (TOPROL-XL) 25 mg extended release tablet Take 1 tablet (25 mg total) by mouth daily 30 tablet 1 07/09/2022 3 losartan (COZAAR) 25 mg tablet Take 0.5 tablets (12.5 mg total) by mouth daily 30 tablet 07/09/2022 3 documented in this encounter Discharge Disposition Disposition Code Departure Means Destination Comment s Discharge to home or self care documented in this encounter Progress Notes * Ivett Jackson, RD - 07/08/2022 12:10 PM CDT Nutrition Assessment Reason for Assessment: Initial Nutrition Assessment and Length of Stay Encounter Date: 07/08/22 12:10 PM Nutrition Assessment and Plan: Patient is a 41 y.o. female. Admit Dx: Ventricular tachycardia (HCC) [I47.20]. Admitted on 07/01/2022, current LOS is 7 days. PMH includes HTN, NICM, opioid abuse. Seen for LOS. Pt reported appetite was initially poor on admission but greatly improved. Reported that she is often starving and has beengetting snacks throughout the day from the floor stock. Denied N/V/D/C. GI WNL. Skin intact. Will modify diet to 4gm Na+ restricted to increase mealtime options and continue to follow nutrition parameters and plans of care. Current diet order: Adult Diet Restricted; 2 GM Sodium Pt intake is adequate. PO intakes: 0% x 3; 25% x 1; 75% x 2; 100% x 1 Nutrition Diagnosis 1: No nutrition issue at this time Interventions: Modify diet, Encouragement, Follow up per policy Monitoring and Evaluation: Appetite, PO intake, Blood glucoses, Supplement tolerance, Diet-related questions, Discharge plans, Labs, Plan of care, I/O, Weight changes, Food preferences Goals: Continue adequate PO intakes Estimated needs: Total Kcal/kg Estimated Needs : 1972.5 based on Kcal/k. Type of Weight Used for Estimated Kcals: Current Total Protein Estimated Needs (gm): 94.68 Protein Needs Based on g/k.2 Type of Weight Used for Estimated Protein : Current. Estimated Fluid Needs Type of Weight Used for Estimated Fluid Needs: Current Fluid Needs Based on : 1 ml/kcal Total Fluid Estimated Needs: 1972.5 Objective Anthropometrics Weight: 78.9 kg (173 lb 15.1 oz) Admission Weight : 76.3 kg Weight Change: 2.59 kg (5.73 lbs) IBW/kg (Calculated) : 56.7 kg Height: 165.1 cm (5' 5 ) Weight in (lb) to have BMI = 25: 149.9 BMI (Calculated): 28.9 BMI Classification: BMI 25.0 - 29.9 Overweight 3 Day I/O Summary 07/06 1899 - 07/08 658 In: 222 [P.O.:222] Out: 0 Temp: 36.7 ??C (98.1 ??F) Past Medical History: Diagnosis Date Hypertension Medications and Lab Review: Scheduled Meds: enoxaparin, 40 mg, subcutaneous, Daily-2100 losartan, 12.5 mg, oral, Daily metoprolol XL, 25 mg, oral, Daily senna-docusate, 1 tablet, oral, BID Continuous Infusions: Sodium Date Value Ref Range Status 07/08/2022 140 135 - 145 mmol/L Final Potassium, pl Date Value Ref Range Status 07/08/2022 4.0 3.3 - 4.9 mmol/L Final BUN Date Value Ref Range Status 07/08/2022 8 8 - 25 mg/dL Final Creatinine Date Value Ref Range Status 07/08/2022 0.92 0.60 - 1.10 mg/dL Final Phosphorus, pl Date Value Ref Range Status 07/08/2022 3.7 2.3 - 4.5 mg/dL Final Magnesium Date Value Ref Range Status 07/08/2022 2.0 1.4 - 2.5 mg/dL Final Calcium Date Value Ref Range Status 07/08/2022 8.8 8.5 - 10.3 mg/dL Final No results found for: HGBA1C Lab Results Component Value Date GLUCOSE 143 07/08/2022 GLUCOSE 124 07/08/2022 GLUCOSE 114 07/08/2022 GLUCOSE 126 07/07/2022 GLUCOSE 111 07/07/2022 GLUCOSE 148 07/06/2022 GLUCOSE 161 07/06/2022 GLUCOSE 187 07/05/2022 Nursing Assessment: Last BM Date: 07/06/22 Bowel Sounds (All Quadrants): Active Emesis Assessment Emesis Color/Appearance: Brown Arian Scale Score: 23 Skin Integrity: Bruising (upper arm scabs) Diet Instructions Continue to follow a low sodium diet and limit sodium intake to less than 2,000mg per day. Avoid foods that are high sources of sodium, such as fast foods, fried/breaded foods, pickled foods, canned goods, deli meats and gravies/sauces. Use alternatives to season foods such as Mrs. SALMON and other he rbs. If you have any further diet-related questions, please call the dietitian's office at [phone]. Additional resources are available online from the [place] at www.heart.org/en/healthy-living/healthy-eating Nutrition Follow-Up : 07/15/[address],LD * Renaldo Hernandez NP - 07/08/2022 10:07 AM CDT CARDIOLOGY PROGRESS NOTE 07/08/2022 CHIEF COMPLAINT Ventricular tachycardia INTERVAL HISTORY HPI: Patient was requested to be seen in consultation by Nik Logan APRN for takotsubo cardiomyopathy. Margy Saldana is a 41 y.o. female with a past medical history of hypertension, opioid substance abuse. According to documentation, on 06/30/2022 she took a fentanyl pill and immediately afterwards began to experience chest pain and palpitations. EMS was called and she was found to be in polymorphic ventricular tachycardia. She was brought to [facility] and underwent cardiac catheterization which demonstrated normal coronaries, possible takotsubo cardiomyopathy. Patient had recurrent ventricular tachycardia in the cardiac cath lab manager and was shocked 4 times. She received magnesium and was started on a lidocaine drip. She was transferred to [facility] on the evening of07/01/2022 for electrophysiology evaluation. Date of service 07/03: No acute events overnight. Lidocaine drip restarted. No events on telemetry overnight. Patient is feeling okay this morning, still having some withdrawal symptoms, but better compared to yesterday. Date of service 07/04: Feeling okay, still having withdrawal symptoms. No events on telemetry. Remains on lidocaine drip. Date of service 07/05: Has more of an appetite now, and is able to eat in small portions. Telemetry with sinus tachycardia without any arrhythmias. Lidocaine drip decreased to 0.5 this AM due to elevated lidocaine level. 07/08-patient resting comfortably in bed. No new issues overnight. Feels well. Sinus rhythm on telemetry. HOSPITAL MEDICATIONS Allergies Allergen Reactions ??? Sumatriptan Anaphylaxis Reaction: ANAPHYLAXIS ??? Sulfa (Sulfonamide Antibiotics) Rash ??? Amoxicillin Rash Reaction: RASH Scheduled Meds:enoxaparin, 40 mg, subcutaneous, Daily-2100 losartan, 12.5 mg, oral, Daily metoprolol XL, 25 mg, oral, Daily senna-docusate, 1 tablet, oral, BID Continuous Infusions: PRN Meds:.??? acetaminophen ??? aluminum-magnesium hydroxide-simethicone ??? ondansetron REVIEW OF SYSTEMS ROS No chest pain. No shortness of breath. No palpitations. No dizziness or lightheadedness. No near syncope or syncope. No nausea or vomiting. No abdominal pain. LABS AND OTHER DIAGNOSTIC TESTS Lab Results Component Value Date WBC 8.6 07/08/2022 HGB 11.1 (L) 07/08/2022 HCT 34.9 (L) 07/08/2022 MCV 88.6 07/08/2022 Recent Labs Lab Units 07/08/22 0738 07/08/22 0712 07/02/22 0734 07/01/22 2042 CO2 mmol/L -- 29 < > 19* CREATININE mg/dL -- 0.92 < > 0.83 CALCIUM mg/dL -- 8.8 < > 8.9 TOTAL PROTEIN g/dL -- -- -- 7.6 BILIRUBIN TOTAL mg/dL -- -- -- 0.6 ALK PHOS Units/L -- -- -- 95 ALT Units/L -- -- -- 40 AST Units/L -- -- -- 66* GLUCOSE mg/dL -- 114 < > 138 POC GLUCOSE MONITOR mg/dL 124 -- < > -- < > = values in this interval not displayed. No results found for: CHOL No results found for: HDL No results found for: LDLCALC No results found for: TRIG PHYSICAL EXAM Vitals: BP 137/83 (BP Location: Left arm, Patient Position: Lying) Pulse 94 Temp 36.7 ??C (98.1??F) (Oral) Resp 18 Ht 165.1 cm (5' 5 ) Wt 78.9 kg (173 lb 15.1 oz) SpO2 97% BMI 28.95 kg/m?? Physical Exam Constitutional: General: She is awake. She is not in acute distress. HENT: Head: Normocephalic and atraumatic. Nose: Nose normal. Eyes: Conjunctiva/sclera: Conjunctivae normal. Cardiovascular: Rate and Rhythm: Normal rate and regular rhythm. Pulmonary: Effort: Pulmonary effort is normal. Breath sounds: Normal breath sounds. Abdominal: General: There is no distension. Musculoskeletal: Right lower leg: No edema. Left lower leg: No edema. Skin: General: Skin is warm and dry. Neurological: General: No focal deficit present. Mental Status: She is alert and oriented to person, place, and time. Psychiatric: Mood and Affect: Mood normal. Speech: Speech normal. Behavior: Behavior normal. Behavior is cooperative. ASSESSMENT -Polymorphic ventricular tachycardia -nonischemic cardiomyopathy EF 28% -hypertension -Cellulitis of arms -Opioid substance abuse PLAN/RECOMMENDATIONS -Polymorphic ventricular tachycardia: Patient had multiple episodes of polymorphic ventricular tachycardia on presentation. Received approximately 8 shocks on 06/30 at [place] for VT. EP consulted andPMVT/TdP likely due to acquired long QT. Patient remains in sinus rhythm on telemetry. QTC has normalized. Continue metoprolol succinate 25 mg p.o. daily. Continue to avoid QT prolonging medications. Will arrange for LifeVest (Assure) priorto discharge. -nonischemic cardiomyopathy EF 28%: Echocardiogram 07/02 shows EF 28%, grade 2 diastolic dysfunction,hypokinetic mid anterior segment, apical segment, apical lateral segment and apical inferior segment. Cardiac catheterization done 06/30 at [facility] showed no significant coronary artery disease. Continue metoprolol succinate 25 mg p.o. daily. Will add low-dose losartan 12.5 mg p.o. daily. Will arrange for LifeVest (Assure) prior to discharge. She can be discharged from a cardiac standpoint once she is fitted with LifeVest. Will arrange for outpatient follow-up. -Hypertension: Blood pressure currently stable. Continue metoprolol succinate 25 mg p.o. daily. Will add low-dose losartan 12.5 mg p.o. daily given cardiomyopathy. -Cellulitis, bilateral arms: Upon presentation patient noted to have cellulitis of arms, apparentlyrelated to skin popping of narcotics. Completed antibiotics. Cellulitis improved. -Opioid substance abuse: Continue management per primary medical team. Avoid QT prolonging medications including methadone. My total encounter time on 07/08/2022 was 18 minutes which was spent in the activities documented in the note. This includes time spent prior to the visit and after the visit in direct care of the patient. This time does not include time spent in any separately reportable services. Voice recognition software was used to complete this document, therefore, reservation clerk variances may occur. Renaldo Hernandez NP 07/08/22 Cosigned by Stefany Winkler DO at 07/08/2022 3:04 PM CDT Associated attestation - Stefany Winkler DO - 07/08/2022 3:04 PM CDT I personally performed a substantive portion of this patient encounter in conjunction with Renaldo Hernandez NP. My impression/plan is -polymorphic ventricular tachycardia: Patient had multiple episodes of polymorphic ventricular tachycardia, with QT prolongation. EP has been following. Her QT interval is normalized, and this is thought to be secondary to the methadone she was taking. Patient has been informed by myself personally that taking methadone again could be dangerous and/or deadly. -QT prolongation: Patient presented with QT prolongation, which has resolved. This is thought to besecondary to methadone. EP following, patient will follow- up with EP as an outpatient. -nonischemic cardiomyopathy EF 30%: She is a nonischemic cardiomyopathy. I have recommended that patient wear LifeVest. Discussed this with the patient at length, and she is agreeable. Will continue Toprol-XL. Will restart losartan, but at a lower dose of 12.5 mg p.o. daily. -hypertension: Continue metoprolol. Will start losartan 12.5 mg p.o. daily, 1st dose this morning. -cellulitis bilateral arms: Resolved with antibiotics -opioid abuse: Had long discussion with the patient. She is through her withdrawal symptoms. She isaware that methadone will likely cause recurrent QT prolongation and life-threatening arrhythmias. She is also been offered information of resources for substance abuse counseling, for which he is int erested. Patient is otherwise stable for discharge from cardiac standpoint after LifeVest is placed today.. Will arrange for follow-up in the cardiology clinic at [facility]. Patient is also to follow-up with EP as an outpatient. Plan discussed with Dr. Foote. I spent 33 minutes of non-overlapping time managing the patient independent of Renaldo hernandez NP today. * Naomi Foote MD - 07/07/2022 10:58 AM CDT Daily Progress Hospital day: Hospital Day: 7 Patient Information Name: Margy Saldana Date of : 1980 (41 y.o.) Date of Service: 07/07/2022 at 10:59 AM CHIEF COMPLAINT/ HOSPITAL COURSE Pt presented with chest pain. 07/07: pt is doing well; boyfriend is visiting; pt has no new complaints. No family at bedside. I spoke with nursing staff at bedside. We discussed the case in detail. All of their concerns were addressed at bedside. REVIEW OF SYSTEM: Constitutional: Denies fevers, chills. Respiratory: Denies shortness of breath, cough. Cardiovascular: Denies chest pain, palpitations. Gastrointestinal: Denies abdominal pain, loss of appetite, nausea, constipation. Genitourinary: Denies dysuria, frequency, urgency. Musculoskeletal: Denies myalgias, swollen joints. Skin: Denies rashes, itching. Neurological: Denies dizziness, headache, changes to vision or hearing, focal numbness or weakness. Hematology: Denies bruising, swelling. Psychiatric: Denies depression, anxiety. enoxaparin, 40 mg, subcutaneous, Daily-2100 [Held by Provider] losartan, 100 mg, oral, Daily metoprolol XL, 25 mg, oral, Daily senna-docusate, 1 tablet, oral, BID vancomycin, 15 mg/kg, intravenous, Q12H ??? acetaminophen, 650 mg, 650 mg at 07/03/22 1255 ??? aluminum-magnesium hydroxide-simethicone, 30 mL, 30 mL at 07/05/22 0528 ??? ondansetron, 4 mg, 4 mg at 07/05/22 0528 OBJECTIVE Vitals: Most Recent : Vitals: 07/07/22 0031 07/07/22 0509 07/07/22 0800 07/07/22 0820 BP: 122/81 119/76 131/74 BP Location: Left arm Left arm Left arm Patient Position: HOB 30 degrees HOB 30 degrees HOB 30 degrees Pulse: 85 74 83 78 Resp: 19 19 19 Temp: 37.2 ??C (98.9 ??F) 37.2 ??C (98.9 ??F) 36.7 ??C (98.1 ??F) TempSrc: Oral Oral Oral SpO2: 97% 95% 99% Weight: Height: 24hr Min/Max: Temp Min: 36.7 ??C (98 ??F) Max: 37.2 ??C (99 ??F) Pulse Min: 74 Max: 107 BP Min: 100/67 Max: 131/74 Resp Min: 18 Max: 20 SpO2 Min: 93 % Max: 99 % Intake/Output Summary (Last 24 hours) at 07/07/2022 1059 Last data filed at 07/06/2022 1906 Gross per 24 hour Intake 222 ml Output -- Net 222 ml PHYSICAL EXAM: Constitutional: Awake, alert, of sound mind. Non-distressed on room air. Non- toxic appearing. Well-nourished. Eyes: EOMI. Conjunctiva are normal. ENMT: Face, External ears, and Nose are normal appearing. Hearing is intact bilaterally. Cardiovascular: Heart Rate and Rhythm Regular. No edema in the lower extremities. Respiratory: Breath sounds are appropriate in all lung street. No wheezing. No rhonchi. No rales. Gastrointestinal: Soft. Non-tender without guarding. Non-distended. No mass Skin: Warm, Dry. Musculoskeletal: No inflamed joints. No significant joint deformities. Left arm: chronic extensive skin scars due to old skin popping. One open wound with redness; but no active drainage; Neurological: No gross neurological deficits appreciated. Psychiatric: Mood and affect are appropriate. LDA: PICC Double Lumen 06/30/22 Right Basilic;Brachial (Active) Placement Date: 06/30/[address] on Admission: Yes Placed by External Staff?: Other hospital Orientation: Right Location: Basilic;Brachial Number of days: 7 Lab/Radiology/Diagnostic Review: I have reviewed the pertinent laboratory, radiographic, and other diagnostic studies. Recent Results (from the past 48 hour(s)) Lidocaine level Collection Time: 07/05/22 3:00 PM Result Value Ref Range Lidocaine (Xylocaine) 11.8 (Critical) 1.5 - 5.0 mcg/mL Type and screen Collection Time: 07/05/22 5:55 PM Result Value Ref Range Mercedes, indirect Negative ABO Rh O Positive POCT glucose Collection Time: 07/05/22 7:40 PM Result Value Ref Range Glucose, POC 187 70 - 199 mg/dL Calcium, ionized Collection Time: 07/06/22 5:10 AM Result Value Ref Range Ca, ionized, bld 4.42 (L) 4.60 - 5.20 mg/dL Ca, ionized, bld, calc 4.29 (L) 4.60 - 5.20 mg/dL CBC without differential Collection Time: 07/06/22 5:17 AM Result Value Ref Range WBC 10.8 (H) 3.8 - 9.9 K/cumm Hgb 11.4 (L) 11.9 - 15.5 g/dL Hct 34.9 (L) 35.6 - 45.5 % Plt 223 150 - 400 K/cumm MPV 11.0 9.1 - 12.3 fL RBC 3.98 3.90 - 5.20 M/cumm MCV 87.7 81.3 - 96.4 fL MCH 28.6 27.1 - 33.3 pg MCHC 32.7 32.3 - 35.7 g/dL RDW CV 13.4 11.1 - 14.9 % RDW SD 41.4 35.7 - 48.1 fL NRBC abs 0.00 0.00 - 0.01 K/cumm Phosphorus Collection Time: 07/06/22 6:45 AM Result Value Ref Range Phosphorus, pl 3.5 2.3 - 4.5 mg/dL Magnesium Collection Time: 07/06/22 6:45 AM Result Value Ref Range Magnesium 2.0 1.4 - 2.5 mg/dL Basic metabolic panel Collection Time: 07/06/22 6:45 AM Result Value Ref Range Sodium 137 135 - 145 mmol/L Potassium, pl 5.2 (H) 3.3 - 4.9 mmol/L Chloride 102 97 - 110 mmol/L CO2 28 22 - 32 mmol/L Anion gap 7 2 - 15 mmol/L BUN 10 8 - 25 mg/dL Creatinine 0.90 0.60 - 1.10 mg/dL Glucose 161 70 - 199 mg/dL Calcium 8.1 (L) 8.5 - 10.3 mg/dL eGFR Collection Time: 07/06/22 6:45 AM Result Value Ref Range eGFR 82 mL/min/1.73 m2 Potassium Collection Time: 07/06/22 5:15 PM Result Value Ref Range Potassium, pl 3.8 3.3 - 4.9 mmol/L POCT glucose Collection Time: 07/06/22 8:09 PM Result Value Ref Range Glucose, POC 148 70 - 199 mg/dL Basic metabolic panel Collection Time: 07/07/22 5:08 AM Result Value Ref Range Sodium 138 135 - 145 mmol/L Potassium, pl 6.3 (Critical) 3.3 - 4.9 mmol/L Chloride 105 97 - 110 mmol/L CO2 29 22 - 32 mmol/L Anion gap 4 2 - 15 mmol/L BUN 11 8 - 25 mg/dL Creatinine 0.90 0.60 - 1.10 mg/dL Glucose 111 70 - 199 mg/dL Calcium 8.4 (L) 8.5 - 10.3 mg/dL CBC without differential Collection Time: 07/07/22 5:08 AM Result Value Ref Range WBC 12.4 (H) 3.8 - 9.9 K/cumm Hgb 10.3 (L) 11.9 - 15.5 g/dL Hct 31.5 (L) 35.6 - 45.5 % Plt 408 (H) 150 - 400 K/cumm MPV 10.7 9.1 - 12.3 fL RBC 3.57 (L) 3.90 - 5.20 M/cumm MCV 88.2 81.3 - 96.4 fL MCH 28.9 27.1 - 33.3 pg MCHC 32.7 32.3 - 35.7 g/dL RDW CV 13.8 11.1 - 14.9 % RDW SD 43.1 35.7 - 48.1 fL NRBC abs 0.00 0.00 - 0.01 K/cumm Magnesium Collection Time: 07/07/22 5:08 AM Result Value Ref Range Magnesium 2.0 1.4 - 2.5 mg/dL Phosphorus Collection Time: 07/07/22 5:08 AM Result Value Ref Range Phosphorus, pl 4.2 2.3 - 4.5 mg/dL Calcium, ionized Collection Time: 07/07/22 5:08 AM Result Value Ref Range Ca, ionized, bld 4.54 (L) 4.60 - 5.20 mg/dL Ca, ionized, bld, calc 4.39 (L) 4.60 - 5.20 mg/dL eGFR Collection Time: 07/07/22 5:08 AM Result Value Ref Range eGFR 82 mL/min/1.73 m2 ASSESSMENT/PLAN Polymorphic VT. POA resolved; Pt was on lidocaine gtt, and now d/c Cardio and EP are consulted and monitor. On bb. CMP likely takotsubo. Compensated. Echo from 07/02/22: There is pseudonormal diastolic dysfunction Grade II. Ejection fraction is visually estimated at 28 %. These segments of the LV are hypokinetic mid anterior segment, apical segment, apical lateral segment and apical inferior segment. Cellulitis left arm from skin popping. No warmth; no active drainage; on IV abx; left arm Completed 7 days of IV vac. Will d/c abx and monitor off of abx. Chronic scarring of left arm. Will check CT left arm UTI. ? No reflex urine cx. No symptoms. HTN. BP are now stable. Hypokalemia. Resolved. Hypophosphatemia. resolved Opioid abuse. Pt used to take 80 tabs a day and now down to 1; and since admission pt has not needing any; wast taking methadone; has been here for 6 days; Full Code DVT Prophylaxis with - lovenox D/W patient and RN Medical Decision Making complexity: moderate Discharge disposition:possible in 1-2 days Naomi Foote MD 07/07/22 10:59 AM * Alvin Hilario MD - 07/06/2022 8:35 AM CDT DAILY PROGRESS NOTE C/C:CP and palpitations Interval History: Off Lidocaine drip since last night. On Calcium gluconate and IVF SUBJECTIVE: Complaints: No more palpitations,CP,nausea No abd pain.Heartburn+ ROS: No fever,chills. No cough,wheezing,SOB No headache,dizziness. OBJECTIVE: Vitals: Temp (24hrs), Av.8 ??C (98.2 ??F), Min:36.6 ??C (97.9 ??F), Max:36.9 ??C (98.4 ??F) Vitals: 07/05/22 2100 07/05/22 2347 07/06/22 0417 07/06/22 0815 BP: 115/76 129/73 129/77 BP Location: Left arm Left arm Left arm Patient Position: HOB 30 degrees HOB 30 degrees Pulse: 93 101 73 75 Resp: 18 20 Temp: 36.7 ??C (98.1 ??F) 36.8 ??C (98.3 ??F) 36.6 ??C (97.9 ??F) TempSrc: Oral Oral Oral SpO2: 96% 98% 96% Weight: Height: LDA: PICC Double Lumen 06/30/22 Right Basilic;Brachial (Active) Placement Date: 06/30/[address] on Admission: Yes Placed by External Staff?: Other hospital Orientation: Right Location: Basilic;Brachial Number of days: 4 Urethral Catheter Temperature probe (Active) Placement Date/Time: 06/30/22 0000 Placed by External Staff?: Other hospital Catheter Type: Temperature probe Number of days: 4 I/O: Intake/Output Summary (Last 24 hours) at 07/06/2022 0835 Last data filed at 07/06/2022 0425 Gross per 24 hour Intake -- Output 600 ml Net -600 ml Physical Exam General: Lying in bed,awake,alert,on RA,NAD SHEENT:Skin warm,dry,no rashes. No icterus,no cyanosis,no pallor,EOMI. Neck:Supple Respi:CTA frantz, Cardio:RRR,no murmur GI:Abdomen soft,bowel sounds +,non tender,not distended. Extre:No edema,no cyanosis,no pallor Neuro:Non focal. Psych:Mood/Affect normal.Behavior normal. Laboratory: Recent Results (from the past 24 hour(s)) Basic metabolic panel Collection Time: 07/05/22 10:15 AM Result Value Ref Range Sodium 138 135 - 145 mmol/L Potassium, pl 3.4 3.3 - 4.9 mmol/L Chloride 101 97 - 110 mmol/L CO2 28 22 - 32 mmol/L Anion gap 9 2 - 15 mmol/L BUN 6 (L) 8 - 25 mg/dL Creatinine 0.94 0.60 - 1.10 mg/dL Glucose 190 70 - 199 mg/dL Calcium 8.4 (L) 8.5 - 10.3 mg/dL CBC without differential Collection Time: 07/05/22 10:15 AM Result Value Ref Range WBC 13.2 (H) 3.8 - 9.9 K/cumm Hgb 11.9 11.9 - 15.5 g/dL Hct 36.7 35.6 - 45.5 % Plt 235 150 - 400 K/cumm MPV 10.7 9.1 - 12.3 fL RBC 4.25 3.90 - 5.20 M/cumm MCV 86.4 81.3 - 96.4 fL MCH 28.0 27.1 - 33.3 pg MCHC 32.4 32.3 - 35.7 g/dL RDW CV 13.0 11.1 - 14.9 % RDW SD 40.2 35.7 - 48.1 fL NRBC abs 0.00 0.00 - 0.01 K/cumm Magnesium Collection Time: 07/05/22 10:15 AM Result Value Ref Range Magnesium 2.0 1.4 - 2.5 mg/dL Phosphorus Collection Time: 07/05/22 10:15 AM Result Value Ref Range Phosphorus, pl 1.9 (L) 2.3 - 4.5 mg/dL Calcium, ionized Collection Time: 07/05/22 10:15 AM Result Value Ref Range Ca, ionized, bld, calc 4.39 (L) 4.60 - 5.20 mg/dL Ca, ionized, bld 4.37 (L) 4.60 - 5.20 mg/dL eGFR Collection Time: 07/05/22 10:15 AM Result Value Ref Range eGFR 78 mL/min/1.73 m2 Lidocaine level Collection Time: 07/05/22 3:00 PM Result Value Ref Range Lidocaine (Xylocaine) 11.8 (Critical) 1.5 - 5.0 mcg/mL Type and screen Collection Time: 07/05/22 5:55 PM Result Value Ref Range Mercedes, indirect Negative ABO Rh O Positive POCT glucose Collection Time: 07/05/22 7:40 PM Result Value Ref Range Glucose, POC 187 70 - 199 mg/dL Calcium, ionized Collection Time: 07/06/22 5:10 AM Result Value Ref Range Ca, ionized, bld 4.42 (L) 4.60 - 5.20 mg/dL Ca, ionized, bld, calc 4.29 (L) 4.60 - 5.20 mg/dL CBC without differential Collection Time: 07/06/22 5:17 AM Result Value Ref Range WBC 10.8 (H) 3.8 - 9.9 K/cumm Hgb 11.4 (L) 11.9 - 15.5 g/dL Hct 34.9 (L) 35.6 - 45.5 % Plt 223 150 - 400 K/cumm MPV 11.0 9.1 - 12.3 fL RBC 3.98 3.90 - 5.20 M/cumm MCV 87.7 81.3 - 96.4 fL MCH 28.6 27.1 - 33.3 pg MCHC 32.7 32.3 - 35.7 g/dL RDW CV 13.4 11.1 - 14.9 % RDW SD 41.4 35.7 - 48.1 fL NRBC abs 0.00 0.00 - 0.01 K/cumm Phosphorus Collection Time: 07/06/22 6:45 AM Result Value Ref Range Phosphorus, pl 3.5 2.3 - 4.5 mg/dL Magnesium Collection Time: 07/06/22 6:45 AM Result Value Ref Range Magnesium 2.0 1.4 - 2.5 mg/dL Basic metabolic panel Collection Time: 07/06/22 6:45 AM Result Value Ref Range Sodium 137 135 - 145 mmol/L Potassium, pl 5.2 (H) 3.3 - 4.9 mmol/L Chloride 102 97 - 110 mmol/L CO2 28 22 - 32 mmol/L Anion gap 7 2 - 15 mmol/L BUN 10 8 - 25 mg/dL Creatinine 0.90 0.60 - 1.10 mg/dL Glucose 161 70 - 199 mg/dL Calcium 8.1 (L) 8.5 - 10.3 mg/dL eGFR Collection Time: 07/06/22 6:45 AM Result Value Ref Range eGFR 82 mL/min/1.73 m2 Radiology: Scheduled Medications: enoxaparin, 40 mg, subcutaneous, Daily-2099 losartan, 100 mg, oral, Daily potassium, sodium phosphates, 2 packet, oral, TID AC senna-docusate, 1 tablet, oral, BID vancomycin, 15 mg/kg, intravenous, Q12H Current Facility-Administered Medications: acetaminophen (TYLENOL) tablet 650 mg, 650 mg, oral, Q6H PRN, Pablo Feror MD, 650 mg at07/03/22 125 aluminum-magnesium hydroxide-simethicone (MAALOX) 40-40-4 mg/mL oral suspension 30 mL, 30 mL, oral,Q4H PRN, Alvin Hilario MD, 30 mL at 07/05/22 05 dextrose 5% and Lactated Ringer's infusion, 40 mL/hr, intravenous, Continuous, Pablo Ferro MD, Last Rate: 40 mL/hr at 07/04/22 0257, 40 mL/hr at 07/04/22 025 enoxaparin (LOVENOX) syringe 40 mg, 40 mg, subcutaneous, Daily-2099, Pablo Ferro MD, 40mg at 07/05/222054 losartan (COZAAR) tablet 100 mg, 100 mg, oral, Daily, Alvin Hilario MD, 100 mg at 07/06/22 0824 ondansetron (ZOFRAN) injection 4 mg, 4 mg, intravenous, Q4H PRN, Melisa Rosas NP, 4 mg at 07/05/22 0528 potassium, sodium phosphates (PHOS-NAK) 280-160-250 mg packet 2 packet, 2 packet, oral, TID ACYanelis Lathamanjari, MD, 2 packet at 07/05/22 1920 senna-docusate (PERICOLACE) 8.6-50 mg per tablet 1 tablet, 1 tablet, oral, BID, Ofoma, Pablo Rivera MD, 1 tablet at 07/03/222116 vancomycin 1250 mg/250 mL in sodium chloride 0.9% (premix) 1,250 mg, 15 mg/kg, intravenous, Q12H, Srinivasan Lizama MD, 1,250 mg at 07/06/22 0828 Continuous Medications: dextrose 5% and Lactated Ringer's, 40 mL/hr, Last Rate: 40 mL/hr (07/04/22 0257) PRN Medications: acetaminophen aluminum-magnesium hydroxide-simethicone ondansetron Hospital course: 41 year old WF pt with PMHx of HTN, and IV Fentanyl abuse was brought to ED with a C/C of CP and palpitations immediately after taking a fentanyl pill . EMS was called and she was found to be found in polymorphic ventricular tachycardia. She was initially taken to [facility] where initial treatment consisted of amio, lidocaine and magnesium. She was then taken to the CCL which demonstrated clean coronary arteries but c/f takotsubo cardiomyopathy. She was then Txed to [facility] ICU for ongoing cardiology workup and a consult to EP (Dr. Benavidez).She arrived on a lidocaine gtt. Patient also utilizes skin popping as an administration vector for fentanyl and has c/f cellulitis to bilateral upper arms. 06/30/2022 cardiac catheterization [facility] clear coronaries Takostubo 07/01/2022 arrives to the ICU in V-tach status post fentanyl use drug screen positive for fentanyl methadone and opioids placed on withdrawal protocol were TTE 07/02/[address] elevation in V1, V2. Qtc 356, Repeat Qtc 3.9, 5.5, MgSO4 4gm ECHO - LVEF 28% with apical hypokinesis ASSESSMENT/PLAN: All diagnoses are present on admission unless otherwise stated. Principal Problem: --Polymorphic Ventricular tachycardia: POA now resolved likely secondary to toxic ingestion of fentanyl-status post shock 8 times -Consulted cardiology and EP cardiology. -TTE showed EF 28% -cardiac catheterization unremarkable no significant coronary artery disease 07/05 night D/Ramana Lidocaine drip 07/06 Started on low dose Metoprolol No plans for ICD per EP. HR much better now Active problems: --Cardiomyopathy likely takotsubo: POA -DCed beta-lane 07/06 Restarted on low dose Metoprolol today --Cellulitis bilateral arms: POA improving -secondary to skin popping/narcotics Continue IV Vancomycin 07/02 Blood culture neg Afebrile Leukocytosis was improving until 07/03, now again with rising leukocytosis--> Now improving. -will continue to monitor Will follow WBC trend. --Suspected Urinary tract infection: Noted on 07/01/2022 leukocyte Estrace 2+ WBC 6-10 bacteria trace Off Rocephin Now with rising leukocytosis. Afebrile. Will repeat UA with micro --IV Fentanyl abuse: POA -drug screen positive for fentanyl, methadone, opioids --Uncontrolled HTN: Resumed home dose Cozaar, now BP is much better Now with mild hyperkalemia. Will hold Cozaar and watch closely K and BP --S/P Hypokalemia: Repleted with PO KCL,resolved --Hypophosphotemia:Repleted with IV Sodium phosphate,still low, started on PO Neutraphos , now resolved --Hyperkalemia: K 5.2. Likely due to overcorrection and Cozaar. Will hold Cozaar and recheck K now and in am. Will D/C LR IVF --Hypocalcemia: Getting Calcium gluconate now. Will recheck in am --Mild normocytic anemia: Monitor Hgb closely. --Heartburn 07/06: Will start prn Pepcid PO intake is improving. D/Ramana Hopkins catheter My total encounter time on 07/06/2022 was 45 minutes which was spent in the activities documented inthe note. This includes time spent prior to the visit and after the visit in direct care of the patient. This time does not include time spent in any separately reportable services. DVT Prophylaxis with SQ Lovenox Code status: Full code D/W RN Medical Decision Making complexity:Moderate Discharge disposition: Alvin Hilario MD 07/06/2022 8:35 AM * Alvin Hilario MD - 07/05/2022 2:38 PM CDT DAILY PROGRESS NOTE C/C:CP and palpitations Interval History: On Lidocaine drip. BP better today SUBJECTIVE: Complaints: No more palpitations today. No more CP. Nauseous but no vomiting.Had 2 soft and loose BMs today. No abd pain. ROS: No fever,chills. No cough,wheezing,SOB No headache,dizziness. OBJECTIVE: Vitals: Temp (24hrs), Av.7 ??C (98 ??F), Min:36.2 ??C (97.1 ??F), Max:37 ??C (98.6 ??F) Vitals: 07/05/22 0540 07/05/22 0800 07/05/22 0833 07/05/22 1145 BP: (!) 161/104 144/97 135/84 BP Location: Left arm Right arm Left arm Patient Position: Lying Sitting Pulse: 118 (!) 137 109 119 Resp: 18 Temp: 36.7 ??C (98.1 ??F) 37 ??C (98.6 ??F) 36.9 ??C (98.4 ??F) TempSrc: Oral Oral Oral SpO2: 96% 93% 95% Weight: Height: LDA: PICC Double Lumen 06/30/22 Right Basilic;Brachial (Active) Placement Date: 06/30/[address] on Admission: Yes Placed by External Staff?: Other hospital Orientation: Right Location: Basilic;Brachial Number of days: 4 Urethral Catheter Temperature probe (Active) Placement Date/Time: 06/30/22 0000 Placed by External Staff?: Other hospital Catheter Type: Temperature probe Number of days: 4 I/O: Intake/Output Summary (Last 24 hours) at 07/05/2022 1438 Last data filed at 07/05/2022 0300 Gross per 24 hour Intake 200 ml Output 1200 ml Net -1000 ml Physical Exam General: Lying in bed,awake,alert,on RA,NAD SHEENT:Skin warm,dry,no rashes. No icterus,no cyanosis,no pallor,EOMI. Neck:Supple Respi:CTA frantz, Cardio:RRR,no murmur GI:Abdomen soft,bowel sounds +,non tender,not distended. Extre:No edema,no cyanosis,no pallor Neuro:Non focal. Psych:Mood/Affect normal.Behavior normal. Laboratory: Recent Results (from the past 24 hour(s)) POCT glucose Collection Time: 07/04/22 4:52 PM Result Value Ref Range Glucose, POC 171 70 - 199 mg/dL POCT glucose Collection Time: 07/04/22 8:25 PM Result Value Ref Range Glucose, POC 161 70 - 199 mg/dL Lidocaine level Collection Time: 07/04/22 8:39 PM Result Value Ref Range Lidocaine (Xylocaine) 5.7 (H) 1.5 - 5.0 mcg/mL POCT glucose Collection Time: 07/05/22 7:56 AM Result Value Ref Range Glucose, POC 133 70 - 199 mg/dL Basic metabolic panel Collection Time: 07/05/22 10:15 AM Result Value Ref Range Sodium 138 135 - 145 mmol/L Potassium, pl 3.4 3.3 - 4.9 mmol/L Chloride 101 97 - 110 mmol/L CO2 28 22 - 32 mmol/L Anion gap 9 2 - 15 mmol/L BUN 6 (L) 8 - 25 mg/dL Creatinine 0.94 0.60 - 1.10 mg/dL Glucose 190 70 - 199 mg/dL Calcium 8.4 (L) 8.5 - 10.3 mg/dL CBC without differential Collection Time: 07/05/22 10:15 AM Result Value Ref Range WBC 13.2 (H) 3.8 - 9.9 K/cumm Hgb 11.9 11.9 - 15.5 g/dL Hct 36.7 35.6 - 45.5 % Plt 235 150 - 400 K/cumm MPV 10.7 9.1 - 12.3 fL RBC 4.25 3.90 - 5.20 M/cumm MCV 86.4 81.3 - 96.4 fL MCH 28.0 27.1 - 33.3 pg MCHC 32.4 32.3 - 35.7 g/dL RDW CV 13.0 11.1 - 14.9 % RDW SD 40.2 35.7 - 48.1 fL NRBC abs 0.00 0.00 - 0.01 K/cumm Magnesium Collection Time: 07/05/22 10:15 AM Result Value Ref Range Magnesium 2.0 1.4 - 2.5 mg/dL Phosphorus Collection Time: 07/05/22 10:15 AM Result Value Ref Range Phosphorus, pl 1.9 (L) 2.3 - 4.5 mg/dL Calcium, ionized Collection Time: 07/05/22 10:15 AM Result Value Ref Range Ca, ionized, bld, calc 4.39 (L) 4.60 - 5.20 mg/dL Ca, ionized, bld 4.37 (L) 4.60 - 5.20 mg/dL eGFR Collection Time: 07/05/22 10:15 AM Result Value Ref Range eGFR 78 mL/min/1.73 m2 Radiology: Scheduled Medications: calcium gluconate, 1 g, intravenous, Once enoxaparin, 40 mg, subcutaneous, Daily-2100 losartan, 100 mg, oral, Daily potassium, sodium phosphates, 2 packet, oral, TID AC senna-docusate, 1 tablet, oral, BID vancomycin, 15 mg/kg, intravenous, Q12H Current Facility-Administered Medications: acetaminophen (TYLENOL) tablet 650 mg, 650 mg, oral, Q6H PRN, Pablo Ferro MD, 650 mg at07/03/22 125 aluminum-magnesium hydroxide-simethicone (MAALOX) 40-40-4 mg/mL oral suspension 30 mL, 30 mL, oral,Q4H PRN, Alvin Hilario MD, 30 mL at 07/05/22527 calcium gluconate 1 g/50 mL in sodium chloride (premix) solution 1 g, 1 g, intravenous, Once, Rashaun Benavidez MD dextrose 5% and Lactated Ringer's infusion, 40 mL/hr, intravenous, Continuous, Pablo Ferro MD, Last Rate: 40 mL/hr at 07/04/22256, 40 mL/hr at 07/04/22256 enoxaparin (LOVENOX) syringe 40 mg, 40 mg, subcutaneous, Daily-2099, Pablo Ferro MD, 40mg at 07/04/222026 lidocaine in dextrose 5% 2 g/250 mL (8 mg/mL) infusion (premix), 0.5 mg/min, intravenous, Continuous, Rashaun Benavidez MD, Last Rate: 3.75 mL/hr at 07/05/22826, 0.5 mg/min at 07/05/22826 losartan (COZAAR) tablet 100 mg, 100 mg, oral, Daily, Alvin Hilario MD, 100 mg at 07/05/22 0848 ondansetron (ZOFRAN) injection 4 mg, 4 mg, intravenous, Q4H PRN, Melisa Rosas NP, 4 mg at 07/05/22 0528 potassium, sodium phosphates (PHOS-NAK) 280-160-250 mg packet 2 packet, 2 packet, oral, TID AC, Alvin Hilario MD senna-docusate (PERICOLACE) 8.6-50 mg per tablet 1 tablet, 1 tablet, oral, BID, Ofoma, Pablo Rivera MD, 1 tablet at 07/03/22 2117 vancomycin 1250 mg/250 mL in sodium chloride 0.9% (premix) 1,250 mg, 15 mg/kg, intravenous, Q12H, Srinivasan Lizama MD, 1,250 mg at 07/05/22 0850 Continuous Medications: dextrose 5% and Lactated Ringer's, 40 mL/hr, Last Rate: 40 mL/hr (07/04/22 0257) lidocaine cardiac, 0.5 mg/min, Last Rate: 0.5 mg/min (07/05/22 0827) PRN Medications: acetaminophen aluminum-magnesium hydroxide-simethicone ondansetron Hospital course: 41 year old WF pt with PMHx of HTN, and IV Fentanyl abuse was brought to ED with a C/C of CP and palpitations immediately after taking a fentanyl pill . EMS was called and she was found to be found in polymorphic ventricular tachycardia. She was initially taken to [facility] where initial treatment consisted of amio, lidocaine and magnesium. She was then taken to the [facility] which demonstrated clean coronary arteries but c/f takotsubo cardiomyopathy. She was then Txed to [facility] ICU for ongoing cardiology workup and a consult to EP (Dr. Benvaidez).She arrived on a lidocaine gtt. Patient also utilizes skin popping as an administration vector for fentanyl and has c/f cellulitis to bilateral upper arms. 06/30/2022 cardiac catheterization [facility] clear coronaries Takostubo 07/01/2022 arrives to the ICU in V-tach status post fentanyl use drug screen positive for fentanyl methadone and opioids placed on withdrawal protocol were TTE 07/02/[address] elevation in V1, V2. Qtc 356, Repeat Qtc 3.9, 5.5, MgSO4 4gm ECHO - LVEF 28% with apical hypokinesis ASSESSMENT/PLAN: All diagnoses are present on admission unless otherwise stated. Principal Problem: --Polymorphic Ventricular tachycardia: POA now resolved likely secondary to toxic ingestion of fentanyl-status post shock 8 times -Consulted cardiology and EP cardiology. -TTE showed EF 28% -cardiac catheterization unremarkable no significant coronary artery disease On Lidocaine drip, to continue drip today also per EP cardiology. Still in sinus tachy Active problems: --Cardiomyopathy likely takotsubo: POA -DCed beta-lane --Cellulitis bilateral arms: POA improving -secondary to skin popping/narcotics Continue IV Vancomycin 07/02 Blood culture neg Afebrile Leukocytosis was improving until 07/03, now again with rising leukocytosis. -will continue to monitor Will follow WBC trend. --Suspected Urinary tract infection: Noted on 07/01/2022 leukocyte Estrace 2+ WBC 6-10 bacteria trace Off Rocephin Now with rising leukocytosis. Afebrile. Will repeat UA with micro --IV Fentanyl abuse: POA -drug screen positive for fentanyl, methadone, opioids --Uncontrolled HTN: Resumed home dose Cozaar, now BP is much better Will watch closely. --Hypokalemia: Repleted with PO KCL,resolved --Hypophosphotemia:Repleted with IV Sodium phosphate,still low, will start PO Neutraphos and followtrend PO intake is still poor. Will D/C Hopkins catheter My total encounter time on 07/05/2022 was 45 minutes which was spent in the activities documented inthe note. This includes time spent prior to the visit and after the visit in direct care of the patient. This time does not include time spent in any separately reportable services. DVT Prophylaxis with SQ Lovenox Code status: Full code D/W RN Medical Decision Making complexity:Moderate Discharge disposition: Alvin Hilario MD 07/05/2022 2:38 PM * Kylie Nova MD - 07/05/2022 9:52 AM CDT CARDIOLOGY PROGRESS NOTE 07/05/2022 CHIEF COMPLAINT No chief complaint on file. INTERVAL HISTORY HPI: Patient was requested to be seen in consultation by Nik Logan APRN for takotsubo cardiomyopathy. Margy Saldana is a 41 y.o. female with a past medical history of hypertension, opioid substance abuse. According to documentation, on 06/30/2022 she took a fentanyl pill and immediately afterwards began to experience chest pain and palpitations. EMS was called and she was found to be in polymorphic ventricular tachycardia. She was brought to [facility] and underwent cardiac catheterization which demonstrated normal coronaries, possible takotsubo cardiomyopathy. Patient had recurrent ventricular tachycardia in the cardiac cath lab manager and was shocked 4 times. She received magnesium and was started on a lidocaine drip. She was transferred to [facility] on the evening of07/01/2022 for electrophysiology evaluation. Date of service 07/03: No acute events overnight. Lidocaine drip restarted. No events on telemetry overnight. Patient is feeling okay this morning, still having some withdrawal symptoms, but better compared to yesterday. Date of service 07/04: Feeling okay, still having withdrawal symptoms. No events on telemetry. Remains on lidocaine drip. Date of service 07/05: Has more of an appetite now, and is able to eat in small portions. Telemetry with sinus tachycardia without any arrhythmias. Lidocaine drip decreased to 0.5 this AM due to elevated lidocaine level. HOSPITAL MEDICATIONS Allergies Allergen Reactions ??? Sumatriptan Anaphylaxis Reaction: ANAPHYLAXIS ??? Sulfa (Sulfonamide Antibiotics) Rash ??? Amoxicillin Rash Reaction: RASH Scheduled Meds:enoxaparin, 40 mg, subcutaneous, Daily-2100 losartan, 100 mg, oral, Daily senna-docusate, 1 tablet, oral, BID vancomycin, 15 mg/kg, intravenous, Q12H Continuous Infusions:dextrose 5% and Lactated Ringer's, 40 mL/hr, Last Rate: 40 mL/hr (07/04/22256) lidocaine cardiac, 0.5 mg/min, Last Rate: 0.5 mg/min (07/05/22826) PRN Meds:.??? acetaminophen ??? aluminum-magnesium hydroxide-simethicone ??? loperamide ??? ondansetron REVIEW OF SYSTEMS ROS 8 point ROS obtained. Negative, unless stated in HPI. LABS AND OTHER DIAGNOSTIC TESTS Lab Results Component Value Date WBC 12.9 (H) 07/04/2022 HGB 13.0 07/04/2022 HCT 39.3 07/04/2022 MCV 84.5 07/04/2022 Recent Labs Lab Units 07/05/22 0756 07/04/22 1136 07/04/22 0835 07/02/22 0734 07/01/222041 CO2 mmol/L -- -- 24 < > 19* CREATININE mg/dL -- -- 0.88 < > 0.83 CALCIUM mg/dL -- -- 8.8 < > 8.9 TOTAL PROTEIN g/dL -- -- -- -- 7.6 BILIRUBIN TOTAL mg/dL -- -- -- -- 0.6 ALK PHOS Units/L -- -- -- -- 95 ALT Units/L -- -- -- -- 40 AST Units/L -- -- -- -- 66* GLUCOSE mg/dL -- -- 135 < > 138 POC GLUCOSE MONITOR mg/dL 133 < > -- < > -- < > = values in this interval not displayed. No results found for: CHOL No results found for: HDL No results found for: LDLCALC No results found for: TRIG PHYSICAL EXAM Vitals: BP 144/97 (BP Location: Right arm, Patient Position: Lying) Pulse 109 Temp 37 ??C (98.6??F) (Oral) Resp 17 Ht 165.1 cm (5' 5 ) Wt 78.9 kg (173 lb 15.1 oz) SpO2 93% BMI 28.95 kg/m?? Physical Exam Constitutional: General: She is awake. She is not in acute distress. HENT: Head: Normocephalic and atraumatic. Eyes: Extraocular Movements: Extraocular movements intact. Cardiovascular: Rate and Rhythm: Tachycardia present. Heart sounds: No murmur heard. Pulmonary: Effort: Pulmonary effort is normal. Breath sounds: Normal breath sounds. Skin: General: Skin is warm and dry. Neurological: General: No focal deficit present. Mental Status: She is alert and oriented to person, place, and time. Psychiatric: Mood and Affect: Mood normal. Speech: Speech normal. Behavior: Behavior normal. Behavior is cooperative. ASSESSMENT -Cardiomyopathy, probable takotsubo -Polymorphic ventricular tachycardia -Leukocytosis -Cellulitis of arms -Opioid substance abuse -Hypertension PLAN/RECOMMENDATIONS -Polymorphic ventricular tachycardia: Patient has had episodes of polymorphic ventricular tachycardia. Received approximately 8 shocks on 06/30 at [place] for VT. EP has been consulted. PMVT/TdP likely due to acquired long QT. Obtain daily EKGs. On Lidocaine drip currently. Avoid QT prolonging medications. EP recommended to hold beta lane for now, therefore stopped her Metoprolol. Please keep electrolytes aggressively optimized. K>4, Phos >3, Mag >2. Will plan to eventually start beta lane if QTc okay off the Lidocaine. No plans for ICD per EP. -Cardiomyopathy, likely takotsubo: Patient now has EF of around 30-35%, with mid anterior, anteroseptal, anteroapical and apical akinesis. Cardiac catheterization demonstrated no significant coronaryartery disease. Echocardiogram done on 06/30 at [place] showed normal LVEF (this echo was done priorto her getting shocked 8 times). Will eventually need GDMT as tolerated, however, will plan to start GDMT once she has recovered more. EP recommended no beta alne at this time, therefore, discontinued her Metoprolol. -Leukocytosis: Continue antibiotics per ICU team. -Cellulitis, bilateral arms: Patient has cellulitis of arms, apparently related to skin popping of narcotics. Continue antibiotics per ICU. -Opioid substance abuse: Patient does appear to be going through active withdrawal, with tachycardia, nausea, vomiting. Management per primary team. Withdrawal symptoms are improving. -Hypertension: Blood pressure currently stable. Voice recognition software was used to complete this document, therefore, reservation clerk variances may occur. Kylie Nova MD 07/05/22 * Alvin Hilario MD - 07/04/2022 7:22 PM CDT DAILY PROGRESS NOTE C/C:CP and palpitations Interval History: On Lidocaine drip. High BP SUBJECTIVE: Complaints: Had a few palpitations this am. No more CP ROS: No fever,chills. No cough,wheezing,SOB No nausea,vomiting,abdominal pain,diarrhea. No headache,dizziness. OBJECTIVE: Vitals: Temp (24hrs), Av.8 ??C (98.3 ??F), Min:36.4 ??C (97.5 ??F), Max:37.2 ??C (99 ??F) Vitals: 07/04/22 1455 07/04/22 1555 07/04/22 1600 07/04/22 1800 BP: (!) 162/101 161/92 (!) 169/108 BP Location: Left arm Left arm Left arm Patient Position: Pulse: 121 117 112 119 Resp: Temp: 36.9 ??C (98.4 ??F) 36.9 ??C (98.5 ??F) 36.9 ??C (98.4 ??F) TempSrc: Oral Oral Oral SpO2: 96% 96% 96% Weight: Height: LDA: PICC Double Lumen 06/30/22 Right Basilic;Brachial (Active) Placement Date: 06/30/[address] on Admission: Yes Placed by External Staff?: Other hospital Orientation: Right Location: Basilic;Brachial Number of days: 4 Urethral Catheter Temperature probe (Active) Placement Date/Time: 06/30/22 0000 Placed by External Staff?: Other hospital Catheter Type: Temperature probe Number of days: 4 I/O: Intake/Output Summary (Last 24 hours) at 07/04/20221921 Last data filed at 07/04/2022 1800 Gross per 24 hour Intake -- Output 1250 ml Net -1250 ml Physical Exam General: Lying in bed,awake,alert,on RA,NAD SHEENT:Skin warm,dry,no rashes. No icterus,no cyanosis,no pallor,EOMI. Neck:Supple Respi:CTA frantz, Cardio:RRR,no murmur GI:Abdomen soft,bowel sounds +,non tender,not distended. Extre:No edema,no cyanosis,no pallor Neuro:Non focal. Psych:Mood/Affect normal.Behavior normal. Laboratory: Recent Results (from the past 24 hour(s)) POCT glucose Collection Time: 07/03/22 10:15 PM Result Value Ref Range Glucose, POC 128 70 - 199 mg/dL POCT glucose Collection Time: 04/09/23 7:40 AM Result Value Ref Range Glucose, POC 103 70 - 199 mg/dL Basic metabolic panel Collection Time: 07/04/22 8:35 AM Result Value Ref Range Sodium 138 135 - 145 mmol/L Potassium, pl 3.0 (L) 3.3 - 4.9 mmol/L Chloride 101 97 - 110 mmol/L CO2 24 22 - 32 mmol/L Anion gap 13 2 - 15 mmol/L BUN 7 (L) 8 - 25 mg/dL Creatinine 0.88 0.60 - 1.10 mg/dL Glucose 135 70 - 199 mg/dL Calcium 8.8 8.5 - 10.3 mg/dL CBC without differential Collection Time: 07/04/22 8:35 AM Result Value Ref Range WBC 12.9 (H) 3.8 - 9.9 K/cumm Hgb 13.0 11.9 - 15.5 g/dL Hct 39.3 35.6 - 45.5 % Plt 293 150 - 400 K/cumm MPV 10.7 9.1 - 12.3 fL RBC 4.65 3.90 - 5.20 M/cumm MCV 84.5 81.3 - 96.4 fL MCH 28.0 27.1 - 33.3 pg MCHC 33.1 32.3 - 35.7 g/dL RDW CV 12.8 11.1 - 14.9 % RDW SD 39.3 35.7 - 48.1 fL NRBC abs 0.00 0.00 - 0.01 K/cumm Magnesium Collection Time: 07/04/22 8:35 AM Result Value Ref Range Magnesium 2.0 1.4 - 2.5 mg/dL Phosphorus Collection Time: 07/04/22 8:35 AM Result Value Ref Range Phosphorus, pl 1.0 (Critical) 2.3 - 4.5 mg/dL Calcium, ionized Collection Time: 07/04/22 8:35 AM Result Value Ref Range Ca, ionized, bld 4.36 (L) 4.60 - 5.20 mg/dL Ca, ionized, bld, calc 4.51 (L) 4.60 - 5.20 mg/dL Vancomycin level trough Draw trough 30 minutes prior to dose. Collection Time: 07/04/22 8:35 AM Result Value Ref Range Vancomycin trough 9.3 (L) 10.0 - 20.0 mcg/mL eGFR Collection Time: 07/04/22 8:35 AM Result Value Ref Range eGFR 85 mL/min/1.73 m2 POCT glucose Collection Time: 07/04/22 11:36 AM Result Value Ref Range Glucose, POC 115 70 - 199 mg/dL POCT glucose Collection Time: 07/04/22 4:52 PM Result Value Ref Range Glucose, POC 171 70 - 199 mg/dL Radiology: Scheduled Medications: enoxaparin, 40 mg, subcutaneous, Daily-2100 losartan, 100 mg, oral, Daily senna-docusate, 1 tablet, oral, BID vancomycin, 15 mg/kg, intravenous, Q12H Current Facility-Administered Medications: acetaminophen (TYLENOL) tablet 650 mg, 650 mg, oral, Q6H PRN, Pablo Ferro MD, 650 mg at07/03/22 1255 aluminum-magnesium hydroxide-simethicone (MAALOX) 40-40-4 mg/mL oral suspension 30 mL, 30 mL, oral,Q4H PRN, Alvin Hilario MD, 30 mL at 07/04/221826 dextrose 5% and Lactated Ringer's infusion, 40 mL/hr, intravenous, Continuous, Pablo Ferro MD, Last Rate: 40 mL/hr at 07/04/22 0257, 40 mL/hr at 07/04/22 025 enoxaparin (LOVENOX) syringe 40 mg, 40 mg, subcutaneous, Daily-2099, Nik Logan, WELL SERVICE FLOORPERSON, 40 mg at 07/03/222116 lidocaine in dextrose 5% 2 g/250 mL (8 mg/mL) infusion (premix), 2 mg/min, intravenous, Continuous,Pablo Ferro MD, Last Rate: 15 mL/hr at 07/04/22 182, 2 mg/min at 07/04/221827 loperamide (IMODIUM) capsule 2 mg, 2 mg, oral, QID PRN, Alvin Hilario MD, 2 mg at 07/04/22 1153 losartan (COZAAR) tablet 100 mg, 100 mg, oral, Daily, Alvin Hilario MD, 100 mg at 07/04/22 1357 ondansetron (ZOFRAN) injection 4 mg, 4 mg, intravenous, Q4H PRN, Melisa Rosas NP, 4 mg at 07/04/22 1436 senna-docusate (PERICOLACE) 8.6-50 mg per tablet 1 tablet, 1 tablet, oral, BID, Ofoma, Pablo Rivera MD, 1 tablet at 07/03/227 vancomycin 1250 mg/250 mL in sodium chloride 0.9% (premix) 1,250 mg, 15 mg/kg, intravenous, Q12H, Srinivasan Lizama MD, 1,250 mg at 07/04/22 1023 Continuous Medications: dextrose 5% and Lactated Ringer's, 40 mL/hr, Last Rate: 40 mL/hr (07/04/22 0257) lidocaine cardiac, 2 mg/min, Last Rate: 2 mg/min (07/04/221827) PRN Medications: acetaminophen aluminum-magnesium hydroxide-simethicone loperamide ondansetron Hospital course: 41 year old WF pt with PMHx of HTN, and IV Fentanyl abuse was brought to ED with a C/C of CP and palpitations immediately after taking a fentanyl pill . EMS was called and she was found to be found in polymorphic ventricular tachycardia. She was initially taken to [facility] where initial treatment consisted of amio, lidocaine and magnesium. She was then taken to the CCL which demonstrated clean coronary arteries but c/f takotsubo cardiomyopathy. She was then Txed to [facility] ICU for ongoing cardiology workup and a consult to EP (Dr. Benavidez).She arrived on a lidocaine gtt. Patient also utilizes skin popping as an administration vector for fentanyl and has c/f cellulitis to bilateral upper arms. 06/30/2022 cardiac catheterization [facility] clear coronaries Takostubo 07/01/2022 arrives to the ICU in V-tach status post fentanyl use drug screen positive for fentanyl methadone and opioids placed on withdrawal protocol were TTE 07/02/[address] elevation in V1, V2. Qtc 356, Repeat Qtc 3.9, 5.5, MgSO4 4gm ECHO - LVEF 28% with apical hypokinesis ASSESSMENT/PLAN: All diagnoses are present on admission unless otherwise stated. Principal Problem: --Polymorphic Ventricular tachycardia: POA now resolved likely secondary to toxic ingestion of fentanyl-status post shock 8 times -Consulted cardiology and EP cardiology. -TTE showed EF 28% -cardiac catheterization unremarkable no significant coronary artery disease On Lidocaine drip Active problems: --Cardiomyopathy likely takotsubo: POA -DCed beta-lane --Cellulitis bilateral arms: POA improving -secondary to skin popping/narcotics Continue IV Vancomycin 07/02 Blood culture neg Afebrile Leukocytosis was improving until 07/03, now again with rising leukocytosis. -will continue to monitor -repeat lab in a.m. --Suspected Urinary tract infection: Noted on 07/01/2022 leukocyte Estrace 2+ WBC 6-10 bacteria trace Off Rocephin --IV Fentanyl abuse: POA -drug screen positive for fentanyl, methadone, opioids --Uncontrolled HTN: Will resume home dose Cozaar and watch closely. --Hypokalemia: Will replete with PO KCL,and recheck in am --Hypophosphotemia:Will replete with IV Sodium phosphate,and recheck in am. My total encounter time on 07/04/2022 was 40 minutes which was spent in the activities documented in the note. This includes time spent prior to the visit and after the visit in direct care of the patient. This time does not include time spent in any separately reportable services. DVT Prophylaxis with SQ Lovenox Code status: Full code D/W RN Medical Decision Making complexity:Moderate Discharge disposition: Alvin Hilario MD 07/04/2022 7:22 PM * Kylie Nova MD - 07/04/2022 11:40 AM CDT CARDIOLOGY PROGRESS NOTE 07/04/2022 CHIEF COMPLAINT No chief complaint on file. INTERVAL HISTORY HPI: Patient was requested to be seen in consultation by Nik Logan APRN for takotsubo cardiomyopathy. Margy Saldana is a 41 y.o. female with a past medical history of hypertension, opioid substance abuse. According to documentation, on 06/30/2022 she took a fentanyl pill and immediately afterwards began to experience chest pain and palpitations. EMS was called and she was found to be in polymorphic ventricular tachycardia. She was brought to [facility] and underwent cardiac catheterization which demonstrated normal coronaries, possible takotsubo cardiomyopathy. Patient had recurrent ventricular tachycardia in the cardiac cath lab manager and was shocked 4 times. She received magnesium and was started on a lidocaine drip. She was transferred to [facility] on the evening of07/01/2022 for electrophysiology evaluation. Date of service 07/03: No acute events overnight. Lidocaine drip restarted. No events on telemetry overnight. Patient is feeling okay this morning, still having some withdrawal symptoms, but better compared to yesterday. Date of service 07/04: Feeling okay, still having withdrawal symptoms. No events on telemetry. Remains on lidocaine drip. HOSPITAL MEDICATIONS Allergies Allergen Reactions ??? Sumatriptan Anaphylaxis Reaction: ANAPHYLAXIS ??? Sulfa (Sulfonamide Antibiotics) Rash ??? Amoxicillin Rash Reaction: RASH Scheduled Meds:enoxaparin, 40 mg, subcutaneous, Daily-2100 senna-docusate, 1 tablet, oral, BID sodium phosphate, 30 mmol, intravenous, Once vancomycin, 15 mg/kg, intravenous, Q12H Continuous Infusions:dextrose 5% and Lactated Ringer's, 40 mL/hr, Last Rate: 40 mL/hr (07/04/22 0257) lidocaine cardiac, 2 mg/min, Last Rate: 2 mg/min (07/03/222210) PRN Meds:.??? acetaminophen ??? loperamide ??? ondansetron REVIEW OF SYSTEMS ROS 8 point ROS obtained. Negative, unless stated in HPI. LABS AND OTHER DIAGNOSTIC TESTS Lab Results Component Value Date WBC 12.9 (H) 07/04/2022 HGB 13.0 07/04/2022 HCT 39.3 07/04/2022 MCV 84.5 07/04/2022 Recent Labs Lab Units 07/04/22 0835 07/02/22 0734 07/01/222041 CO2 mmol/L 24 < > 19* CREATININE mg/dL 0.88 < > 0.83 CALCIUM mg/dL 8.8 < > 8.9 TOTAL PROTEIN g/dL -- -- 7.6 BILIRUBIN TOTAL mg/dL -- -- 0.6 ALK PHOS Units/L -- -- 95 ALT Units/L -- -- 40 AST Units/L -- -- 66* GLUCOSE mg/dL 135 < > 138 POC GLUCOSE MONITOR -- < > -- < > = values in this interval not displayed. No results found for: CHOL No results found for: HDL No results found for: LDLCALC No results found for: TRIG PHYSICAL EXAM Vitals: BP (!) 168/116 (BP Location: Left arm) Pulse 104 Temp 36.8 ??C (98.3 ??F) (Oral) Resp 18 Ht 165.1 cm (5' 5 ) Wt 78.9 kg (173 lb 15.1 oz) SpO2 95% BMI 28.95 kg/m?? Physical Exam Constitutional: General: She is awake. She is not in acute distress. HENT: Head: Normocephalic and atraumatic. Eyes: Extraocular Movements: Extraocular movements intact. Cardiovascular: Rate and Rhythm: Tachycardia present. Heart sounds: No murmur heard. Pulmonary: Effort: Pulmonary effort is normal. Breath sounds: Normal breath sounds. Skin: General: Skin is warm and dry. Neurological: General: No focal deficit present. Mental Status: She is alert and oriented to person, place, and time. Psychiatric: Mood and Affect: Mood normal. Speech: Speech normal. Behavior: Behavior normal. Behavior is cooperative. ASSESSMENT -Cardiomyopathy, probable takotsubo -Polymorphic ventricular tachycardia -Leukocytosis -Cellulitis of arms -Opioid substance abuse -Hypertension PLAN/RECOMMENDATIONS -Polymorphic ventricular tachycardia: Patient has had episodes of polymorphic ventricular tachycardia. Received approximately 8 shocks on 06/30 at [place] for VT. EP has been consulted. PMVT/TdP likely due to acquired long QT. Obtain daily EKGs. On Lidocaine drip currently. Avoid QT prolonging medications. EP recommended to hold beta lane for now, will stop her Metoprolol. Will check a lidocaine level today. Please keep electrolytes optimized. K>4, Phos >3, Mag >2 -Cardiomyopathy, likely takotsubo: Patient now has EF of around 30-35%, with mid anterior, anteroseptal, anteroapical and apical akinesis. Cardiac catheterization demonstrated no significant coronaryartery disease. Echocardiogram done on 06/30 at [place] showed normal LVEF (this echo was done priorto her getting shocked 8 times). Will eventually need GDMT as tolerated, however, will plan to start GDMT once she has recovered more. EP recommended no beta lane at this time, therefore, will discontinue her Metoprolol. -Leukocytosis: Continue antibiotics per ICU team. -Cellulitis, bilateral arms: Patient has cellulitis of arms, apparently related to skin popping of narcotics. Continue antibiotics per ICU. -Opioid substance abuse: Patient does appear to be going through active withdrawal, with tachycardia, nausea, vomiting. Management per critical care team. -Hypertension: Blood pressure currently stable. Voice recognition software was used to complete this document, therefore, reservation clerk variances may occur. Kylie Nova MD 07/04/22 * Maritza Holguin [facility] - 07/04/2022 10:28 AM CDT Pharmacokinetic Consult - Vancomycin Dosing (Day # 3) Margy Saldana is a 41 y.o. female on vancomycin 1250 mg Q12h for cellulitis. Also receiving ceftriaxone. Relevant clinical data and objective history reviewed: Creatinine Date Value Ref Range Status 07/03/2022 0.91 0.60 - 1.10 mg/dL Final 07/02/2022 0.98 0.60 - 1.10 mg/dL Final 07/01/2022 0.83 0.60 - 1.10 mg/dL Final BUN Date Value Ref Range Status 07/03/2022 16 8 - 25 mg/dL Final 07/02/2022 14 8 - 25 mg/dL Final 07/01/2022 9 8 - 25 mg/dL Final Estimated Creatinine Clearance: 73.2 mL/min (by C-G formula based on SCr of 0.91 mg/dL). I/O last 3 completed shifts: In: 2663 [P.O.:180; I.V.:2483] Out: 2420 [Urine:2420] Lab Results Component Value Date/Time WBC 12.9 (H) 07/04/2022 08:35 AM HGB 13.0 07/04/2022 08:35 AM HCT 39.3 07/04/2022 08:35 AM MCV 84.5 07/04/2022 08:35 AM LABPLAT 293 07/04/2022 08:35 AM Temp Readings from Last 3 Encounters: 07/04/22 36.7 ??C (98.1 ??F) (Oral) 02/01/21 37.2 ??C (98.9 ??F) (Oral) 01/31/21 37.1 ??C (98.7 ??F) (Oral) Patient Weight 07/03/22 78.9 kg (173 lb 15.1 oz) Vancomycin trough level: 9.3 Assessment/Plan Goal vancomycin trough: 10-20 mcg/ml Trough just slightly below goal. Per progress notes, cellulitis is improving therefore will continue the current regimen. Next trough 07/09 0830. Will continue to monitor and adjust as needed. Maritza Holguin RPh * Melisa Rosas NP - 07/03/2022 3:13 PM CDT [facility] Hospitalist Service Progress Note Patient Name: Margy Saldana Patient : 1980 Age/Sex: 41 y.o. female Room/Bed: [facility] [address] Admission Date/Time: 07/01/2022 8:19 PM Date: 07/03/2022 Time: 3:18 PM Chief Complaint: Ventricular tachycardia now resolved patient not complain of headache HPI: Per CCP notes: 41 year old female w/ PMH of HTN, and substance abuse w/ opioids. On 06/30 she reports she took a fentanyl pill which she suspects was laced w/ an upper because immediately after taking it she began toexperience chest pain and palpitations. EMS was called and she was found to be found in polymorphic ventricular tachycardia. She was initially taken to [facility] where initial treatment consisted of amio, lidocaine and magnesium. She was then taken to the [facility] which demonstrated clean coronary arteries but c/f takotsubo cardiomyopathy. She now arrives to [facility] ICU for ongoing cardiology workup and a consult to EP (Dr. Benavidez). She arrives on a lidocaine gtt. Of note, the patient also utilizes skin popping as an administration vector for fentanyl and has c/f cellulitis to bilateral upper arms. 06/30/2022 cardiac catheterization [facility] clear coronaries Micheleubo 07/01/2022 arrives to the ICU in V-tach status post fentanyl use drug screen positive for fentanyl methadone and opioids placed on withdrawal protocol were TTE 07/02/[address] elevation in V1, V2. Qtc 356, Repeat Qtc 3.9, 5.5, MgSO4 4gm ECHO - LVEF 28% with apical hypokinesis SUBJECTIVE Interval History: 07/03/22 The patient is seen and examined at bedside. Patient is awake alert oriented states that shefeels slightly better but states she has a headache approximately a 6/10 on a pain scale. Patient transferred to 9th floor I spoke with nursing staff at bedside. We discussed the case in detail. All of their concerns were addressed. Review of Systems: Constitutional: denies weight loss, weight gain Head: denies headache , dizziness, lightheadedness, loc Nose/Throat: denies dysphagia, soreness, rhinorrhea Cardiovascular: denies chest pain, palpitations, syncope Resp: denies, shortness of breath, cough,hemoptysis Peripheral: denies generalized weakness , numbness, tingling Gi: denies nausea , vomiting, diarrhea Gu: denies dysuria, hematuria Musculoskeletal: weakness, joint pain, Neuro: denies problems with gait, dizziness, seizures. Endocrine: denies diabetes, thyroid. Allergies: Allergies Allergen Reactions Sumatriptan Anaphylaxis Reaction: ANAPHYLAXIS Sulfa (Sulfonamide Antibiotics) Rash Amoxicillin Rash Reaction: RASH Current Medication List: Scheduled Meds:cefTRIAXone, 1,000 mg, intravenous, Q24H KENTRELL enoxaparin, 40 mg, subcutaneous, Daily-2100 senna-docusate, 1 tablet, oral, BID vancomycin, 15 mg/kg, intravenous, Q12H Continuous Infusions:dextrose 5% and Lactated Ringer's, 40 mL/hr, Last Rate: 40 mL/hr (07/02/225) lidocaine cardiac, 2 mg/min, Last Rate: 2 mg/min (07/03/22 8541) PRN Meds: acetaminophen OBJECTIVE Vitals: Vitals: 07/03/22 1345 07/03/22 1400 07/03/22 1415 07/03/22 1441 BP: (!) 156/102 BP Location: Left arm Patient Position: HOB 30 degrees Pulse: 108 105 98 105 Resp: 15 14 13 16 Temp: 36.8 ??C (98.2 ??F) TempSrc: Oral SpO2: 91% 91% 92% 96% Weight: Height: Physical Exam: Physical Exam HENT: Head: Normocephalic. Mouth/Throat: Mouth: Mucous membranes are moist. Cardiovascular: Rate and Rhythm: Normal rate and regular rhythm. Pulmonary: Effort: Pulmonary effort is normal. Abdominal: Palpations: Abdomen is soft. Musculoskeletal: General: Normal range of motion. Skin: Capillary Refill: Capillary refill takes less than 2 seconds. Neurological: Mental Status: She is alert. Psychiatric: Mood and Affect: Mood normal. Pertinent Diagnostics: I have reviewed the pertinent laboratory, radiographic, and other diagnosticstudies. Recent Results (from the past 24 hour(s)) Lidocaine level Collection Time: 07/02/22 5:21 PM Result Value Ref Range Lidocaine (Xylocaine) 2.5 1.5 - 5.0 mcg/mL POCT glucose Collection Time: 07/02/22 5:24 PM Result Value Ref Range Glucose, POC 103 70 - 199 mg/dL POCT glucose Collection Time: 07/02/22 8:26 PM Result Value Ref Range Glucose, POC 81 70 - 199 mg/dL Basic metabolic panel Collection Time: 07/03/22 4:47 AM Result Value Ref Range Sodium 140 135 - 145 mmol/L Potassium, pl 4.0 3.3 - 4.9 mmol/L Chloride 106 97 - 110 mmol/L CO2 26 22 - 32 mmol/L Anion gap 8 2 - 15 mmol/L BUN 16 8 - 25 mg/dL Creatinine 0.91 0.60 - 1.10 mg/dL Glucose 90 70 - 199 mg/dL Calcium 8.1 (L) 8.5 - 10.3 mg/dL CBC without differential Collection Time: 07/03/22 4:47 AM Result Value Ref Range WBC 11.7 (H) 3.8 - 9.9 K/cumm Hgb 12.2 11.9 - 15.5 g/dL Hct 37.7 35.6 - 45.5 % Plt 250 150 - 400 K/cumm MPV 10.2 9.1 - 12.3 fL RBC 4.26 3.90 - 5.20 M/cumm MCV 88.5 81.3 - 96.4 fL MCH 28.6 27.1 - 33.3 pg MCHC 32.4 32.3 - 35.7 g/dL RDW CV 13.1 11.1 - 14.9 % RDW SD 42.7 35.7 - 48.1 fL NRBC abs 0.00 0.00 - 0.01 K/cumm Magnesium Collection Time: 07/03/22 4:47 AM Result Value Ref Range Magnesium 2.3 1.4 - 2.5 mg/dL Phosphorus Collection Time: 07/03/22 4:47 AM Result Value Ref Range Phosphorus, pl 2.7 2.3 - 4.5 mg/dL Calcium, ionized Collection Time: 07/03/22 4:47 AM Result Value Ref Range Ca, ionized, bld 4.49 (L) 4.60 - 5.20 mg/dL Ca, ionized, bld, calc 4.34 (L) 4.60 - 5.20 mg/dL eGFR Collection Time: 07/03/22 4:47 AM Result Value Ref Range eGFR 81 mL/min/1.73 m2 Lidocaine level Collection Time: 07/03/22 12:19 PM Result Value Ref Range Lidocaine (Xylocaine) 4.3 1.5 - 5.0 mcg/mL ASSESSMENT AND PLAN: All conditions are present on admission unless otherwise noted. Ventricular tachycardia: POA now resolved likely secondary to toxic ingestion of street drugs such as fentanyl -cardiology on the case -TTE showed EF 28% -cardiac catheterization unremarkable no significant coronary artery disease Cardiomyopathy likely takotsubo: POA -status post shocked 8 times -DC beta-lane Cellulitis bilateral arms: POA improving -secondary to skin popping/narcotics -given antibiotic therapy Urinary tract infection: Noted on 07/01/2022 leukocyte Estrace 2+ WBC 6-10 bacteria trace -patient continues to receive Rocephin Drug abuse/substance abuse: POA -drug screen positive for fentanyl methadone opioids Leukocytosis: POA WBC 11.7 this is improving recently was 23.8 on 07/02/2022 -will continue to monitor -repeat lab in a.m. DVT prophylaxis -Lovenox Discharge Disposition: Transferring to the 9th floor Voice recognition software ([employer]) was used to complete this document. Despite proofreading, reservation clerk variances and typographical errors may occur. MELISA MELO MBA,DNP Hospitalist in the [facility] 07/03/2022 3:18 PM * David Last PA - 07/03/2022 12:50 PM CDT ICU to Floor Transfer Plan to move patient to the 9th floor. Sign out given to Dr. Lizama. Please see most recent daily progress note for detailed HPI, hospital course, and significant events. Do not hesitate to reach out via phone if any further questions/concerns. SHIRLEY Brian Phone number to be reached at: [phone] (RAZIA 2) * David Last PA - 07/03/2022 9:40 AM CDTAssociated Order(s): Critical Care Post-Procedure Diagnose(s): Ventricular tachycardia (HCC) Images from the original note were not included. ICU Daily Progress Team: Community AM Subjective Patient is a 41 y.o. female admitted on 07/01/2022 8:19 PM with chief complaint of chest pain. Interval History: - Continue Lidocaine gtt - Lidocaine level at 1300 - Transfer to SDU HPI: 41 year old female w/ PMH of HTN, and substance abuse w/ opioids. On 06/30 she reports she took a fentanyl pill which she suspects was laced w/ an upper because immediately after taking it she began toexperience chest pain and palpitations. EMS was called and she was found to be found in polymorphic ventricular tachycardia. She was initially taken to [facility] where initial treatment consisted of amio, lidocaine and magnesium. She was then taken to the [facility] which demonstrated clean coronary arteries but c/f takotsubo cardiomyopathy. She now arrives to [facility] ICU for ongoing cardiology workup and a consult to EP (Dr. Benavidez). She arrives on a lidocaine gtt. Of note, the patient also utilizes skin popping as an administration vector for fentanyl and has c/f cellulitis to bilateral upper arms. Objective Physical Exam: Gen: NAD Neuro: A&Ox4, non-focal, follows commands, MAEW HEENT: Head NC/AT, face symmetrical, PEERL CV: S1 and S2 without M/G/R, RRR Pulm: LCTA, respirations even/unlabored GI: Abdomen Soft/NT/ND, normoactive bowel sounds : Hopkins to gravity Skin: Warm, dry, good turgor Extremities: No edema, PPP Medications Scheduled Meds:cefTRIAXone, 1,000 mg, intravenous, Q24H KENTRELL enoxaparin, 40 mg, subcutaneous, Daily-2100 senna-docusate, 1 tablet, oral, BID vancomycin, 15 mg/kg, intravenous, Q12H Continuous Infusions:dextrose 5% and Lactated Ringer's, 40 mL/hr, Last Rate: 40 mL/hr (07/02/224) lidocaine cardiac, 2 mg/min, Last Rate: 2 mg/min (07/03/22 0553) PRN Meds:.??? [Held by Provider] ondansetron ??? [Held by Provider] oxyCODONE Vital signs for last 24 hours: Temp: [36.7 ??C (98 ??F)-36.9 ??C (98.5 ??F)] 36.8 ??C (98.3 ??F) Pulse: [94-129] 109 BP: (125-150)/(81-111) 137/87 Resp: [9-28] 13 SpO2: [89 %-98 %] 92 % Hemodynamics: MAP (mmHg): [93-119] 99 Pulmonary Support: O2 Therapy: None (Room air) Intake/Output: Intake/Output Summary (Last 24 hours) at 07/03/2022 0940 Last data filed at 07/03/2022 0600 Gross per 24 hour Intake 2573 ml Output 655 ml Net 1918 ml Labs reviewed: Recent Results (from the past 12 hour(s)) Basic metabolic panel Collection Time: 07/03/22 4:47 AM Result Value Ref Range Sodium 140 135 - 145 mmol/L Potassium, pl 4.0 3.3 - 4.9 mmol/L Chloride 106 97 - 110 mmol/L CO2 26 22 - 32 mmol/L Anion gap 8 2 - 15 mmol/L BUN 16 8 - 25 mg/dL Creatinine 0.91 0.60 - 1.10 mg/dL Glucose 90 70 - 199 mg/dL Calcium 8.1 (L) 8.5 - 10.3 mg/dL CBC without differential Collection Time: 07/03/22 4:47 AM Result Value Ref Range WBC 11.7 (H) 3.8 - 9.9 K/cumm Hgb 12.2 11.9 - 15.5 g/dL Hct 37.7 35.6 - 45.5 % Plt 250 150 - 400 K/cumm MPV 10.2 9.1 - 12.3 fL RBC 4.26 3.90 - 5.20 M/cumm MCV 88.5 81.3 - 96.4 fL MCH 28.6 27.1 - 33.3 pg MCHC 32.4 32.3 - 35.7 g/dL RDW CV 13.1 11.1 - 14.9 % RDW SD 42.7 35.7 - 48.1 fL NRBC abs 0.00 0.00 - 0.01 K/cumm Magnesium Collection Time: 07/03/22 4:47 AM Result Value Ref Range Magnesium 2.3 1.4 - 2.5 mg/dL Phosphorus Collection Time: 07/03/22 4:47 AM Result Value Ref Range Phosphorus, pl 2.7 2.3 - 4.5 mg/dL Calcium, ionized Collection Time: 07/03/22 4:47 AM Result Value Ref Range Ca, ionized, bld 4.49 (L) 4.60 - 5.20 mg/dL Ca, ionized, bld, calc 4.34 (L) 4.60 - 5.20 mg/dL eGFR Collection Time: 07/03/22 4:47 AM Result Value Ref Range eGFR 81 mL/min/1.73 m2 Imaging reviewed: XR Chest 1 View Result Date: 07/02/2022 NO ACUTE PULMONARY CHANGE. Electronically signed by: Poli Le M.D. US Vein Duplex Upper Extremity Bilateral Complete Result Date: 07/02/2022 Acute superficial thrombosis of the left cephalic vein. Results discussed with ordering provider approximately 0800 on date of study by performing technologist. Electronically signed by: Arslan De La Cruz II, D.O. Assessment/Plan: Neuro: #depression - POA #Bipolar -POA - Currently not on medications for either condition - Consider psych consult as indicated #substance abuse - On home methadone, held at this time d/t concern for potential causative agent of QT prolongation - Methadone restarted. Will give 170mg today and taper dose down by 20mg daily - Will avoid concurrent use of short acting opioids - States takes librium of withdrawing from fentanyl - UDS positive for fentanyl, methadone, opiates - Chemical dependency consult CV: #Polymorphic Vtach possibly due to toxic ingestion versus cardiomyopathy - POA #takostubo cardiomyopathy - [address] elevation in anterior leads, but patient had a clean cath - TTE - LVEF 28% - S/p CCL (4/5) at [facility] w/ clear coronaries per report but c/f takostubo cardiomyopathy - Lidocaine gtt was restarted overnight. Will repeat Lidocaine level at 1300 - Will recheck Lidocaine level in light of increasing Qtc 3.5>3.9>4.7 - Plan to restart at a lower level if abl - Optimize electrolytes - EP following. Appreciate recommendations - Continuous telemetry #HTN - POA - given losartan at OSH - Consider clonidine for both withdrawals and HTN Pulmonary: - Continue with aggressive pulmonary hygiene, C&DB, IS, OOBTC, ambulate. - Wean O2 for SpO2>92% - Currently on RA GI: Diet: Diet, 2g Na restriction PUD PPx: not indicated Bowel regimen: Senna-docusate Endo: Euglycemic. No SSI Renal: Normal renal function and adequate UOP Optimize electrolytes as needed Heme: #LUE superficial thrombophlebitis - Per paperwork from OSH, patient has thrombosis to right cephalic vein - Duplex did not show RUE thrombus, but demonstrated Lt cephalic vein thrombophlebitis - Supportive therapy. LUE elevation ID: #leukocytosis likely #cellulitis to BUE r/t skin popping - vanco and imipenem at OSH - Vanc and ceftriaxone continued - BC NGTD, MRSA (-), RVP (-), pneumonia PCR (-) - Hepatitis panel negative - Trend fever curve and WBC ICU standards of care: Restraints: NA Physical therapy/Activity: Access: PICC Goals of care: Full code Assessment and plan has been reviewed with the attending physician, Dr. Pillo Last PA-C Critical Care Performed by: David Last PA Authorized by: David Last PA CRITICAL CARE: Team: VIKI Shift: AM Level of Billing: Critical Care My time spent with this patient was 75 minutes: Critical Provider Statement: I have seen and examined the patient on this day of service. I have reviewed and confirmed the history, physical exam, laboratory and radiologic data as documented in thesigned ICU note. I have reviewed and discussed my treatment plan with the ICU team and other medical/area development consultant staff, making frequent assessments and decisions regarding this patient's complex medical care. Critical Care time was exclusive of time spent performing separately billed procedures, treating other patients, and teaching. This time was in addition to and separate from critical care provided by other practitioners in my group on this day of service. Critical Care was necessary to treat or prevent imminent or life-threatening deterioration of the following conditions: Acute pain/acute postoperative pain Cardiomyopathy and Tachy/kanika arrhythmic event Sepsis This time was spent by me doing the following: Serial laboratory checks and Serial bedside patient exams Acute pain control Initiation/active titration of anti-arrhythmic or rate controlling agent and Serial neurovascular exams Incentive spirometry, pulmonary toilet Active repletion of electrolytes Empiric broad coverage antibiotics and Review of prior or current culture/gram stain results I spent time reviewing and interpreting data from bedside monitors, laboratory results, and imaging, I spent time discussing the management of this critically ill patient with consultants and the medical staff and I spent time documenting in the medical record Cosigned by Pablo Ferro MD at 07/03/2022 5:00 PM CDT * Kylie Nova MD - 07/03/2022 8:53 AM CDT CARDIOLOGY PROGRESS NOTE 07/03/2022 CHIEF COMPLAINT No chief complaint on file. INTERVAL HISTORY HPI: Patient was requested to be seen in consultation by Nik Logan APRN for takotsubo cardiomyopathy. Margy Saldana is a 41 y.o. female with a past medical history of hypertension, opioid substance abuse. According to documentation, on 06/30/2022 she took a fentanyl pill and immediately afterwards began to experience chest pain and palpitations. EMS was called and she was found to be in polymorphic ventricular tachycardia. She was brought to [facility] and underwent cardiac catheterization which demonstrated normal coronaries, possible takotsubo cardiomyopathy. Patient had recurrent ventricular tachycardia in the cardiac cath lab manager and was shocked 4 times. She received magnesium and was started on a lidocaine drip. She was transferred to [facility] on the evening of07/01/2022 for electrophysiology evaluation. Date of service 07/03: No acute events overnight. Lidocaine drip restarted. No events on telemetry overnight. Patient is feeling okay this morning, still having some withdrawal symptoms, but better compared to yesterday. HOSPITAL MEDICATIONS Allergies Allergen Reactions ??? Sumatriptan Anaphylaxis Reaction: ANAPHYLAXIS ??? Sulfa (Sulfonamide Antibiotics) Rash ??? Amoxicillin Rash Reaction: RASH Scheduled Meds:cefTRIAXone, 1,000 mg, intravenous, Q24H KENTRELL enoxaparin, 40 mg, subcutaneous, Daily-2100 [Held by Provider] metoprolol tartrate, 12.5 mg, oral, BID senna-docusate, 1 tablet, oral, BID vancomycin, 15 mg/kg, intravenous, Q12H Continuous Infusions:dextrose 5% and Lactated Ringer's, 40 mL/hr, Last Rate: 40 mL/hr (07/02/222117) lidocaine cardiac, 2 mg/min, Last Rate: 2 mg/min (07/03/22 05) PRN Meds:.??? [Held by Provider] ondansetron ??? [Held by Provider] oxyCODONE REVIEW OF SYSTEMS ROS 8 point ROS obtained. Negative, unless stated in HPI. LABS AND OTHER DIAGNOSTIC TESTS Lab Results Component Value Date WBC 11.7 (H) 07/03/2022 HGB 12.2 07/03/2022 HCT 37.7 07/03/2022 MCV 88.5 07/03/2022 Recent Labs Lab Units 07/03/22 0447 07/02/22 0734 07/01/222041 CO2 mmol/L 26 < > 19* CREATININE mg/dL 0.91 < > 0.83 CALCIUM mg/dL 8.1* < > 8.9 TOTAL PROTEIN g/dL -- -- 7.6 BILIRUBIN TOTAL mg/dL -- -- 0.6 ALK PHOS Units/L -- -- 95 ALT Units/L -- -- 40 AST Units/L -- -- 66* GLUCOSE mg/dL 90 < > 138 POC GLUCOSE MONITOR -- < > -- < > = values in this interval not displayed. No results found for: CHOL No results found for: HDL No results found for: LDLCALC No results found for: TRIG PHYSICAL EXAM Vitals: BP 142/91 Pulse 100 Temp 36.7 ??C (98 ??F) (Oral) Resp 13 Ht 165.1 cm (5' 5 ) Wt 78.9 kg (173 lb 15.1 oz) SpO2 93% BMI 28.95 kg/m?? Physical Exam Constitutional: General: She is awake. She is not in acute distress. HENT: Head: Normocephalic and atraumatic. Eyes: Extraocular Movements: Extraocular movements intact. Cardiovascular: Rate and Rhythm: Tachycardia present. Heart sounds: No murmur heard. Pulmonary: Effort: Pulmonary effort is normal. Breath sounds: Normal breath sounds. Skin: General: Skin is warm and dry. Neurological: General: No focal deficit present. Mental Status: She is alert and oriented to person, place, and time. Psychiatric: Mood and Affect: Mood normal. Speech: Speech normal. Behavior: Behavior normal. Behavior is cooperative. ASSESSMENT -Cardiomyopathy, probable takotsubo -Polymorphic ventricular tachycardia -Leukocytosis -Cellulitis of arms -Opioid substance abuse -Hypertension PLAN/RECOMMENDATIONS -Polymorphic ventricular tachycardia: Patient has had episodes of polymorphic ventricular tachycardia. Received approximately 8 shocks on 06/30 at [place] for VT. EP has been consulted. PMVT/TdP likely due to acquired long QT. Obtain daily EKGs. On Lidocaine drip currently. Avoid QT prolonging medications. EP recommended to hold beta lane for now, will stop her Metoprolol. -Cardiomyopathy, likely takotsubo: Patient now has EF of around 30-35%, with mid anterior, anteroseptal, anteroapical and apical akinesis. Cardiac catheterization demonstrated no significant coronaryartery disease. Echocardiogram done on 06/30 at [place] showed normal LVEF (this echo was done priorto her getting shocked 8 times). Will eventually need GDMT as tolerated, however, will plan to start GDMT once she has recovered more. EP recommended no beta lane at this time, therefore, will discontinue her Metoprolol. -Leukocytosis: Continue antibiotics per ICU team. -Cellulitis, bilateral arms: Patient has cellulitis of arms, apparently related to skin popping of narcotics. Continue antibiotics per ICU. -Opioid substance abuse: Patient does appear to be going through active withdrawal, with tachycardia, nausea, vomiting. Management per critical care team. -Hypertension: Blood pressure currently stable. Voice recognition software was used to complete this document, therefore, reservation clerk variances may occur. Kylie Nova MD 07/03/22 * Nik Logan, RANJANA - 07/02/2022 7:33 PM CDTAssociated Order(s): Critical Care Post-Procedure Diagnose(s): Ventricular tachycardia (HCC) Images from the original note were not included. ICU Daily Progress Team: Community AM Subjective Patient is a 41 y.o. female admitted on 07/01/2022 8:19 PM with chief complaint of chest pain. Interval History: - Monitor QTc - Resumed lidocaine gtt, repeat level at 2.5 - Resume D5LR as patient is not tolerating PO intake, borderline hypoglycemic and low UOP - Methadone dose verified as 190 mg by [facility]. Will resume at 170 and decrease by 20 daily. Options non existent for other medications d/t the large dose of methadone utilized. HPI: 41 year old female w/ PMH of HTN, and substance abuse w/ opioids. On 06/30 she reports she took a fentanyl pill which she suspects was laced w/ an upper because immediately after taking it she began toexperience chest pain and palpitations. EMS was called and she was found to be found in polymorphic ventricular tachycardia. She was initially taken to [facility] where initial treatment consisted of amio, lidocaine and magnesium. She was then taken to the CCL which demonstrated clean coronary arteries but c/f takotsubo cardiomyopathy. She now arrives to [facility] ICU for ongoing cardiology workup and a consult to EP (Dr. Benavidez). She arrives on a lidocaine gtt. Of note, the patient also utilizes skin popping as an administration vector for fentanyl and has c/f cellulitis to bilateral upper arms. Hospital Course: 07/01: arrive from [facility]. Sinus tach. Lidocaine gtt stopped for level of 7.8 07/02: Improving HR. Lidocaine gtt resumed w/ level now at 2.5. Mehtadone resumed at 170 mg. Objective Physical Exam: Gen: NAD Neuro: A&Ox4, follows commands, MAEW HEENT: Head NC/AT, face symmetrical, PERRL CV: S1 and S2, RRR, tachycardic Pulm: LCTA, RR even and unlabored GI: Abdomen Soft/NT/ND, normoactive bowel sounds, nausea and vomiting : Hopkins to gravity Skin: Warm, dry, good turgor. Firmness and discoloration to bilateral upper arms. Extremities: No edema, PPP Medications Scheduled Meds:cefTRIAXone, 1,000 mg, intravenous, Q24H KENTRELL enoxaparin, 40 mg, subcutaneous, Daily-2100 [Held by Provider] methadone, 190 mg, feeding tube, Daily [Held by Provider] metoprolol tartrate, 12.5 mg, oral, BID vancomycin, 15 mg/kg, intravenous, Q12H Continuous Infusions: PRN Meds:.??? ondansetron ??? oxyCODONE Vital signs for last 24 hours: Temp: [36.7 ??C (98.1 ??F)-37.1 ??C (98.7 ??F)] 36.9 ??C (98.5 ??F) Pulse: [96-140] 101 BP: (128-163)/(81-128) 137/91 Resp: [10-28] 18 SpO2: [89 %-96 %] 91 % Hemodynamics: MAP (mmHg): [93-133] 105 Pulmonary Support: O2 Therapy: None (Room air) Intake/Output: Intake/Output Summary (Last 24 hours) at 07/02/20221932 Last data filed at 07/02/2022 1800 Gross per 24 hour Intake 30 ml Output 640 ml Net -610 ml Labs reviewed: Recent Results (from the past 12 hour(s)) Basic metabolic panel Collection Time: 07/02/22 7:34 AM Result Value Ref Range Sodium 137 135 - 145 mmol/L Potassium, pl 4.3 3.3 - 4.9 mmol/L Chloride 104 97 - 110 mmol/L CO2 21 (L) 22 - 32 mmol/L Anion gap 12 2 - 15 mmol/L BUN 14 8 - 25 mg/dL Creatinine 0.98 0.60 - 1.10 mg/dL Glucose 260 (H) 70 - 199 mg/dL Calcium 8.5 8.5 - 10.3 mg/dL CRP (acute phase) Collection Time: 07/02/22 7:34 AM Result Value Ref Range CRP 19.0 (H) <=10.0 mg/L Magnesium Collection Time: 07/02/22 7:34 AM Result Value Ref Range Magnesium 2.0 1.4 - 2.5 mg/dL Phosphorus Collection Time: 07/02/22 7:34 AM Result Value Ref Range Phosphorus, pl 2.7 2.3 - 4.5 mg/dL Troponin T high-sensitivity Collection Time: 07/02/22 7:34 AM Result Value Ref Range Trop T hs 79 (H) <=14 ng/L eGFR Collection Time: 07/02/22 7:34 AM Result Value Ref Range eGFR 74 mL/min/1.73 m2 POCT glucose Collection Time: 07/02/22 5:24 PM Result Value Ref Range Glucose, POC 103 70 - 199 mg/dL Imaging reviewed: XR Chest 1 View Result Date: 07/02/2022 NO ACUTE PULMONARY CHANGE. Electronically signed by: Poli Le M.D. US Vein Duplex Upper Extremity Bilateral Complete Result Date: 07/02/2022 Acute superficial thrombosis of the left cephalic vein. Results discussed with ordering provider approximately 0800 on date of study by performing technologist. Electronically signed by: Arslan De La Cruz II, D.O. Assessment/Plan: Neuro: #depression - POA #Bipolar -POA - Currently not on medications for either condition - Consider psych consult as indicated #substance abuse w/ signs of withdrawal - On home methadone, held at this time d/t concern for potential causative agent of QT prolongation - Resume methadone at 170 mg w/ QTc of 460. Taper down by 20mg per day. Unable to utilize other agents d/t high methadose dose and paitent with tachycardia, nausea and vomiting - UDS positive for fentanyl, methadone, opiates - Chemical dependency consult CV: #Polymorphic Vtach possibly due to toxic ingestion versus cardiomyopathy - POA #takostubo cardiomyopathy - [address] elevation in anterior leads, but patient had a clean cath - TTE - LVEF 28% - S/p CCL (06/30) at [facility] w/ clear coronaries per report but c/f takostubo cardiomyopathy - Lidocaine gtt DC'd in am 2/ elevated serum lidocaine level - Lidocaine level down to 2.5, gtt resumed at 1 mg/min - Optimize electrolytes - EP following. - Daily EKG - monitor QTc - Cardiology following - Continuous telemetry #HTN - POA - given losartan at OSH - Consider clonidine for both withdrawals and HTN Pulmonary: - Continue with aggressive pulmonary hygiene, C&DB, IS, OOBTC, ambulate. - Wean O2 for SpO2>92% - Currently on RA GI: Diet: Diet, 2g Na restriction PUD PPx: not indicated Bowel regimen: Senna-docusate Endo: No active issues Frequent BG checks Renal: Normal renal function and adequate UOP Optimize electrolytes as needed Heme: #LUE superficial thrombosis - US (07/02) Acute superficial thrombosis of the left cephalic vein. Follow up in Am - Per paperwork from OSH, patient has thrombosis to right cephalic vein - Duplex did not show RUE thrombus, but demonstrated Lt cephalic vein thrombophlebitis - Supportive therapy. LUE elevation ID: #leukocytosis likely #cellulitis to BUE r/t skin popping #UTI - vanco and imipenem at OSH - Vanc and ceftriaxone - BC NGTD, MRSA (-), RVP (-), pneumonia PCR (-) - Hepatitis panel pending - Trend fever curve and WBC - Consider DANIELLA ICU standards of care: Restraints: NA Physical therapy/Activity: Access: PICC Goals of care: Full code Assessment and plan has been reviewed with the attending physician, Dr. Danette Logan APRN-C Critical Care Performed by: Nik Logan APRN Authorized by: Nik Logan APRN CRITICAL CARE: Team: VIKI Shift: PM Level of Billing: Critical Care My time spent with this patient was 70 minutes: Critical Provider Statement: I have seen and examined the patient on this day of service. I have reviewed and confirmed the history, physical exam, laboratory and radiologic data as documented in thesigned ICU note. I have reviewed and discussed my treatment plan with the ICU team and other medical/area development consultant staff, making frequent assessments and decisions regarding this patient's complex medical care. Critical Care time was exclusive of time spent performing separately billed procedures, treating other patients, and teaching. This time was in addition to and separate from critical care provided by other practitioners in my group on this day of service. Critical Care was necessary to treat or prevent imminent or life-threatening deterioration of the following conditions: Acute pain/acute postoperative pain Tachy/kanika arrhythmic event Sepsis This time was spent by me doing the following: Serial laboratory checks and Serial bedside patient exams Acute pain control Serial neurovascular exams Empiric broad coverage antibiotics and Review of prior or current culture/gram stain results I spent time reviewing and interpreting data from bedside monitors, laboratory results, and imaging, I spent time discussing the management of this critically ill patient with consultants and the medical staff and I spent time documenting in the medical record Cosigned by Ld Samaniego MD at 07/03/2022 6:16 AM CDT * David Last PA - 07/02/2022 4:53 PM CDTAssociated Order(s): Critical Care Post-Procedure Diagnose(s): Ventricular tachycardia (HCC) Images from the original note were not included. ICU Daily Progress Team: Community AM Subjective Patient is a 41 y.o. female admitted on 07/01/2022 8:19 PM with chief complaint of chest pain. Interval History: - EKG with ST elevation in V1, V2. Qtc 356 - Repeat Qtc 3.9, 5.5 - MgSO4 4gm - Lidocaine level - Methadone and Metoprolol held on EP recommendation - ECHO - LVEF 28% with apical hypokinesis HPI: 41 year old female w/ PMH of HTN, and substance abuse w/ opioids. On 06/30 she reports she took a fentanyl pill which she suspects was laced w/ an upper because immediately after taking it she began toexperience chest pain and palpitations. EMS was called and she was found to be found in polymorphic ventricular tachycardia. She was initially taken to [facility] where initial treatment consisted of amio, lidocaine and magnesium. She was then taken to the CCL which demonstrated clean coronary arteries but c/f takotsubo cardiomyopathy. She now arrives to [facility] ICU for ongoing cardiology workup and a consult to EP (Dr. Benavidez). She arrives on a lidocaine gtt. Of note, the patient also utilizes skin popping as an administration vector for fentanyl and has c/f cellulitis to bilateral upper arms. Objective Physical Exam: Gen: NAD Neuro: A&Ox4, non-focal, follows commands, MAEW HEENT: Head NC/AT, face symmetrical, PEERL CV: S1 and S2 without M/G/R, RRR Pulm: LCTA, respirations even/unlabored GI: Abdomen Soft/NT/ND, normoactive bowel sounds : Hopkins to gravity Skin: Warm, dry, good turgor Extremities: No edema, PPP Medications Scheduled Meds:cefTRIAXone, 1,000 mg, intravenous, Q24H KENTRELL enoxaparin, 40 mg, subcutaneous, Daily-2100 [Held by Provider] methadone, 190 mg, feeding tube, Daily [Held by Provider] metoprolol tartrate, 12.5 mg, oral, BID vancomycin, 15 mg/kg, intravenous, Q12H Continuous Infusions: PRN Meds:. ondansetron oxyCODONE Vital signs for last 24 hours: Temp: [36.7 ??C (98.1 ??F)-37.1 ??C (98.7 ??F)] 36.9 ??C (98.5 ??F) Pulse: [97-140] 97 BP: (128-163)/(81-128) 132/95 Resp: [10-28] 17 SpO2: [89 %-96 %] 90 % Hemodynamics: MAP (mmHg): [93-133] 106 Pulmonary Support: O2 Therapy: None (Room air) Intake/Output: Intake/Output Summary (Last 24 hours) at 07/02/2022 1653 Last data filed at 07/02/2022 1200 Gross per 24 hour Intake 30 ml Output 365 ml Net -335 ml Labs reviewed: Recent Results (from the past 12 hour(s)) CBC without differential Collection Time: 07/02/22 6:00 AM Result Value Ref Range WBC 23.8 (H) 3.8 - 9.9 K/cumm Hgb 12.7 11.9 - 15.5 g/dL Hct 39.7 35.6 - 45.5 % Plt 368 150 - 400 K/cumm MPV 10.8 9.1 - 12.3 fL RBC 4.58 3.90 - 5.20 M/cumm MCV 86.7 81.3 - 96.4 fL MCH 27.7 27.1 - 33.3 pg MCHC 32.0 (L) 32.3 - 35.7 g/dL RDW CV 13.6 11.1 - 14.9 % RDW SD 41.9 35.7 - 48.1 fL NRBC abs 0.00 0.00 - 0.01 K/cumm Calcium, ionized Collection Time: 07/02/22 6:00 AM Result Value Ref Range Ca, ionized, bld, calc 4.32 (L) 4.60 - 5.20 mg/dL Ca, ionized, bld 4.27 (L) 4.60 - 5.20 mg/dL Hepatitis panel, acute Collection Time: 07/02/22 6:00 AM Result Value Ref Range Hep A IgM Nonreactive Nonreactive Hep B core IgM Nonreactive Nonreactive Hep C Ab Nonreactive Nonreactive HepBsAg Nonreactive Nonreactive Basic metabolic panel Collection Time: 07/02/22 7:34 AM Result Value Ref Range Sodium 137 135 - 145 mmol/L Potassium, pl 4.3 3.3 - 4.9 mmol/L Chloride 104 97 - 110 mmol/L CO2 21 (L) 22 - 32 mmol/L Anion gap 12 2 - 15 mmol/L BUN 14 8 - 25 mg/dL Creatinine 0.98 0.60 - 1.10 mg/dL Glucose 260 (H) 70 - 199 mg/dL Calcium 8.5 8.5 - 10.3 mg/dL CRP (acute phase) Collection Time: 07/02/22 7:34 AM Result Value Ref Range CRP 19.0 (H) <=10.0 mg/L Magnesium Collection Time: 07/02/22 7:34 AM Result Value Ref Range Magnesium 2.0 1.4 - 2.5 mg/dL Phosphorus Collection Time: 07/02/22 7:34 AM Result Value Ref Range Phosphorus, pl 2.7 2.3 - 4.5 mg/dL Troponin T high-sensitivity Collection Time: 07/02/22 7:34 AM Result Value Ref Range Trop T hs 79 (H) <=14 ng/L eGFR Collection Time: 07/02/22 7:34 AM Result Value Ref Range eGFR 74 mL/min/1.73 m2 Imaging reviewed: XR Chest 1 View Result Date: 07/02/2022 NO ACUTE PULMONARY CHANGE. Electronically signed by: Poli Le M.D. US Vein Duplex Upper Extremity Bilateral Complete Result Date: 07/02/2022 Acute superficial thrombosis of the left cephalic vein. Results discussed with ordering provider approximately 0800 on date of study by performing technologist. Electronically signed by: Dash Mason IIODhruv Assessment/Plan: Neuro: #depression - POA #Bipolar -POA - Currently not on medications for either condition - Consider psych consult as indicated #substance abuse - On home methadone, held at this time d/t concern for potential causative agent of QT prolongation - Oxycodone while off methadone - States takes librium of withdrawing from fentanyl - UDS positive for fentanyl, methadone, opiates - Chemical dependency consult CV: #Polymorphic Vtach possibly due to toxic ingestion versus cardiomyopathy - POA #takostubo cardiomyopathy - [address] elevation in anterior leads, but patient had a clean cath - TTE - LVEF 28% - S/p CCL (4/5) at [facility] w/ clear coronaries per report but c/f takostubo cardiomyopathy - Lidocaine gtt was stopped overnight - Will recheck Lidocaine level in light of increasing Qtc 3.5>3.9>4.7 - Plan to restart at a lower level if able - Optimize electrolytes - EP following. Appreciate recommendations - Continuous telemetry #HTN - POA - given losartan at OSH - Consider clonidine for both withdrawals and HTN Pulmonary: - Continue with aggressive pulmonary hygiene, C&DB, IS, OOBTC, ambulate. - Wean O2 for SpO2>92% - Currently on RA GI: Diet: Diet, 2g Na restriction PUD PPx: not indicated Bowel regimen: Senna-docusate Endo: Euglycemic. No SSI Renal: Normal renal function and adequate UOP Optimize electrolytes as needed Heme: #LUE superficial thrombophlebitis - Per paperwork from OSH, patient has thrombosis to right cephalic vein - Duplex did not show RUE thrombus, but demonstrated Lt cephalic vein thrombophlebitis - Supportive therapy. LUE elevation ID: #leukocytosis likely #cellulitis to BUE r/t skin popping - vanco and imipenem at OSH - Vanc and ceftriaxone continued - BC NGTD, MRSA (-), RVP (-), pneumonia PCR (-) - Hepatitis panel pending - Trend fever curve and WBC - Consider DANIELLA ICU standards of care: Restraints: NA Physical therapy/Activity: Access: PICC Goals of care: Full code Assessment and plan has been reviewed with the attending physician, Dr. Carlitos Last PA-C Critical Care Performed by: David Last PA Authorized by: David Last PA CRITICAL CARE: Team: VIKI Shift: AM Level of Billing: Critical Care My time spent with this patient was 75 minutes: Critical Provider Statement: I have seen and examined the patient on this day of service. I have reviewed and confirmed the history, physical exam, laboratory and radiologic data as documented in thesigned ICU note. I have reviewed and discussed my treatment plan with the ICU team and other medical/area development consultant staff, making frequent assessments and decisions regarding this patient's complex medical care. Critical Care time was exclusive of time spent performing separately billed procedures, treating other patients, and teaching. This time was in addition to and separate from critical care provided by other practitioners in my group on this day of service. Critical Care was necessary to treat or prevent imminent or life-threatening deterioration of the following conditions: Acute pain/acute postoperative pain Cardiomyopathy and Tachy/kanika arrhythmic event Sepsis This time was spent by me doing the following: Serial laboratory checks and Serial bedside patient exams Acute pain control Initiation/active titration of anti-arrhythmic or rate controlling agent and Serial neurovascular exams Incentive spirometry, pulmonary toilet Active repletion of electrolytes Empiric broad coverage antibiotics and Review of prior or current culture/gram stain results I spent time reviewing and interpreting data from bedside monitors, laboratory results, and imaging, I spent time discussing the management of this critically ill patient with consultants and the medical staff and I spent time documenting in the medical record Cosigned by Nacho Urbina MD at 07/12/2022 7:35 PM CDT * César Leary, [facility] - 07/02/2022 2:02 AM CDT Pharmacokinetic Consult - Vancomycin Dosing Margy Saldana is a 41 y.o. female who has been consulted for vancomycin dosing for sepsis and skin/soft tissue infection. Relevant clinical data and objective history reviewed: Creatinine Date Value Ref Range Status 07/01/2022 0.83 0.60 - 1.10 mg/dL Final 03/06/2020 0.89 0.60 - 1.10 mg/dL Final 02/28/2020 0.79 0.60 - 1.10 mg/dL Final BUN Date Value Ref Range Status 07/01/2022 9 8 - 25 mg/dL Final 03/06/2020 17 8 - 25 mg/dL Final 02/28/2020 14 8 - 25 mg/dL Final Estimated Creatinine Clearance: 80.3 mL/min (by C-G formula based on SCr of 0.83 mg/dL). No intake/output data recorded. Lab Results Component Value Date/Time WBC 23.3 (H) 07/01/2022 08:42 PM HGB 13.2 07/01/2022 08:42 PM HCT 40.0 07/01/2022 08:42 PM MCV 86.6 07/01/2022 08:42 PM LABPLAT 344 07/01/2022 08:42 PM Temp Readings from Last 3 Encounters: 07/01/22 36.7 ??C (98.1 ??F) (Oral) 02/01/21 37.2 ??C (98.9 ??F) (Oral) 01/31/21 37.1 ??C (98.7 ??F) (Oral) Patient Weight 07/01/22 76.3 kg (168 lb 3.4 oz) No results found for: DIRECTEXAM, MICROBIOLOGY, ORGANISM Assessment/Plan The patient will be started on vancomycin utilizing scheduled dosing based on actual body weight. Will initiate dosing at 1750 mg IV once, followed by 1250 mg every 12 hours. Pharmacy will also follow closely for signs and symptoms of toxicity. Serum creatinine will be ordered per policy. Vancomycin trough level has been ordered to be drawn on 07/04 at 0530. Goal trough is 15-20 mcg/mL. Pharmacy will continue to follow the patient???s culture results and clinical progress daily. Day 1 of therapy. César Leary RPh documented in this encounter H&P Notes * Nik oLgan, WELL SERVICE FLOORPERSON - 07/01/2022 9:11 PM CDTAssociated Order(s): Critical Care Images from the original note were not included. Critical Care Medicine Consult Team: [facility] PM Reason for Consult: Polymorphic tachycardia Subjective Patient is a 41 y.o. female with chief complaint of chest pain HPI: 41 year old female w/ PMH of HTN, and substance abuse w/ opioids. On 06/30 she reports she took a fentanyl pill which she suspects was laced w/ an upper because immediately after taking it she began toexperience chest pain and palpitations. EMS was called and she was found to be found in polymorphic ventricular tachycardia. She was initially taken to [facility] where initial treatment consisted of amio, lidocaine and magnesium. She was then taken to the CCL which demonstrated clean coronary arteries but c/f takotsubo cardiomyopathy. She now arrives to [facility] ICU for ongoing cardiology workup and a consult to EP (Dr. Benavidez). She arrives on a lidocaine gtt. Of note, the patient also utilizes skin popping as an administration vector for fentanyl and has c/f cellulitis to bilateral upper arms. Past Medical History: Diagnosis Date Hypertension Past Surgical History: Procedure Laterality Date HYSTERECTOMY Allergies Allergen Reactions Sumatriptan Anaphylaxis Reaction: ANAPHYLAXIS Sulfa (Sulfonamide Antibiotics) Rash Amoxicillin Rash Reaction: RASH Social History Tobacco Use Smoking status: Never Smokeless tobacco: Never Substance and Sexual Activity Drug use: Yes Types: Amphetamines, Benzodiazepines, Fentanyl, Opioid Sexual activity: Defer Alcohol Use: Not on file No family history on file. HOME MEDICATIONS : chlordiazePOXIDE (LIBRIUM) 25 mg capsule losartan (COZAAR) 100 mg tablet Medications: Medications Prior to Admission Medication Sig Dispense Refill Last Dose chlordiazePOXIDE (LIBRIUM) 25 mg capsule Take 1 capsule (25 mg total) by mouth 3 (three) times a day as needed for anxiety 30 capsule 0 losartan (COZAAR) 100 mg tablet Take 1 tablet (100 mg total) by mouth daily 30 tablet 11 Scheduled Medications Medication Dose Route Frequency ondansetron (ZOFRAN) 4 mg/2 mL injection - ADS Override Pull Continuous Medications: Current Facility-Administered Medications Medication Dose Route Frequency Last Admin lidocaine cardiac 3 mg/min intravenous Continuous PRN Medications: oxyCODONE, 10 mg Review of Systems: Neuro: Endorses anxiety, Denies vision changes Cardiac: Endorses palpitations and chest pain Pulm: Denies shortness of breath, cough GI: Denies abd pain, distention, diarrhea, constipation : Denies frequency, urgency, dysuria Endo: Denies heat or cold intolerance MSK: Endorses swelling to upper arms Objective Vitals: Arrival Vitals Temp Pulse Resp BP SpO2 Temp src Heart Rate Source Patient Position BP Location FiO2 (%) 24hr Min/Max: No data recorded Current Vitals: There were no vitals taken for this visit. Intake/Output: No intake/output data recorded. No intake/output data recorded. LDA: Vent settings for last 24 hours: Hemodynamic parameters for last 24 hours: Physical Exam: General: Mildly ill appearing Neuro: awake, alert, orientedx x3-4, moves all extremeties Cardiac: tachycardic, RRR, S1 S2, periphery warm, pulses palpable distally Pulm: lungs clear bilaterally, RR even and unlabored GI: abdomen round, soft, nontender, hypoactive bowel sounds : Skin: [place], warm, dry. Bilateral upper arms w/ firmness and discoloration. No open wounds or purulent drainage. Lines: PICC LUE Lab/Radiology/Diagnostic Review: Recent Results (from the past 24 hour(s)) Calcium, ionized Collection Time: 07/01/22 8:42 PM Result Value Ref Range Ca, ionized, bld, calc 4.15 (L) 4.60 - 5.20 mg/dL Ca, ionized, bld 4.15 (L) 4.60 - 5.20 mg/dL CBC without differential Collection Time: 07/01/22 8:42 PM Result Value Ref Range WBC 23.3 (H) 3.8 - 9.9 K/cumm Hgb 13.2 11.9 - 15.5 g/dL Hct 40.0 35.6 - 45.5 % Plt 344 150 - 400 K/cumm MPV 10.3 9.1 - 12.3 fL RBC 4.62 3.90 - 5.20 M/cumm MCV 86.6 81.3 - 96.4 fL MCH 28.6 27.1 - 33.3 pg MCHC 33.0 32.3 - 35.7 g/dL RDW CV 13.4 11.1 - 14.9 % RDW SD 42.3 35.7 - 48.1 fL NRBC abs 0.00 0.00 - 0.01 K/cumm Plan: Neuro: #depression - POA #Bipolar -POA - Currently not on medications for either condition - Consider psych consult as indicated #substance abuse - On home methadone, held at this time d/t concern for potential causative agent of QT prolongation - Oxycodone while off methadone - States takes librium of withdrawing from fentanyl - UDS positive for fentanyl, methadone, opiates CV: #Polymorphic Vtach possibly 2/2 toxic ingestion versus cardiomyopathy - POA C/f #takostubo cardiomyopathy - 12 lead EKG, reviewed w/ Dr. Fry - TTE ordered - S/p CCL (06/30) at [facility] w/ clear coronaries per report but c/f takostubo cardiomyopathy - Lidocaine gtt - Lidocaine level 7.9, rate decreased from 3 to 2. - Optimize electrolytes - EP consulted - Continuous telemetry - Consider magnesium gtt if lidocaine does not control HR - CCL by Dr. Nova w/ 1 #HTN - POA - given losartan at OSH - Consider clonidine for both withdrawals and HTN Pulmonary: No active issues CXR ordered IS and pulm hygiene GI: Diet: NPO PUD PPx: not indicated Bowel regimen: Senna-docusate Endo: Frequent BG checks Renal No active issues Kidney function daily and as indicated Optimize electrolytes Heme: C/f#DVT of RUE - Per paperwork from OSH, patient has thrombosis to right cephalic vein - Duplex ordered No overt bleeding Daily CBC DVT PPX: SCD's & lovenox ID: #leukocytosis likely 2/2 #cellulitis to BUE r/t skin popping - vanco and imipenem at OSH - Vanc and cefe - BC pending - CRP - TA - COVID negative - RSV negative - Flu negative - Hepatitis panel ordered - Trend fever curve and WBC - Consider DANIELLA ICU standards of care: Restraints: NA Physical therapy/Activity: Access: PICC Goals of care: Full code Community PM Assessment and plan has been reviewed with attending, Dr. Lisandra Logan APRN Critical Care Performed by: Nik Logan APRN Authorized by: Nik Logan APRN CRITICAL CARE: Team: VIKI Shift: PM Level of Billing: Critical Care My time spent with this patient was 100 minutes: Critical Provider Statement: I have seen and examined the patient on this day of service. I have reviewed and confirmed the history, physical exam, laboratory and radiologic data as documented in thesigned ICU note. I have reviewed and discussed my treatment plan with the ICU team and other medical/area development consultant staff, making frequent assessments and decisions regarding this patient's complex medical care. Critical Care time was exclusive of time spent performing separately billed procedures, treating other patients, and teaching. This time was in addition to and separate from critical care provided by other practitioners in my group on this day of service. Critical Care was necessary to treat or prevent imminent or life-threatening deterioration of the following conditions: Acute pain/acute postoperative pain Cardiomyopathy and Tachy/kanika arrhythmic event Sepsis This time was spent by me doing the following: Serial laboratory checks and Serial bedside patient exams Acute pain control Initiation/active titration of anti-arrhythmic or rate controlling agent and Serial neurovascular exams Incentive spirometry, pulmonary toilet Active repletion of electrolytes Empiric broad coverage antibiotics and Review of prior or current culture/gram stain results I spent time reviewing and interpreting data from bedside monitors, laboratory results, and imaging, I spent time discussing the management of this critically ill patient with consultants and the medical staff and I spent time documenting in the medical record Cosigned by Bridgett Fry MD at 07/16/2022 10:10 PM CDT documented in this encounter Consult Notes * Aminata Jane RN - 07/08/2022 9:30 AM CDT Wound Nurse consulted for assessment/orders concerning left arm wounds . Patient is a 41 year old female with PMH: HTN, and substance abuse w/ opioids. Admitted to [facility] on 07/01/22 for ventricular tachycardia. Impression: Patient has dimpled bilateral shoulders and upper arms. Patient states she has an ongoing issue with recurrent abscess on her arms that she drains on her own. This presents like hydradenitis. There are no current open wounds that require treatment. Recommendation to patient is to request referral to a oxygen plant operator if she would like to start thinking about potential surgical intervention. Plan: Ph neutral cleansers on skin, CHG bath daily Goal: Promote optimum Ph balance of skin and antimicrobial coverage. * Rashaun Benavidez MD - 07/02/2022 12:08 PM CDT Cardiology Consult Note - Electrophysiology Patient Name: Margy Saldana : 1980 Date of Service: 07/02/22 Requesting Attending: Bridgett Fry MD Reason for Consult: Other: PMVT Chief Complaint: CP, palpitations, TdP HPI Margy Saldana is a 41 y.o. female with a history of HTN and PSA presenting with CP, tachypalpiations. Electrophysiology has been consulted for TdP. Pt states prior to this admission she had been maintained on Methadone, however was still a daily Fentanyl user. She injects it under her skin as method of introduction. Pt states last dose was day of presentation to [facility]. She states she suddenly started feeling periods of chest pain, palpitations and pre syncope, that were intermittent and resolve on their own. In [facility], pt was noted to have PMVT/TdP that initially were self resolving. EKGreviewed showed SR with QTc of 490-500s. Pt underwent LHC for ischemic evaluation showing no CAD, however Takotsubo like CM on LV gram. During LHC, pt had repeated episodes of TdP and was cardioverted multiple times. Pt initially received electrolyte supplementation and was initially placed on Amioand Lido gtts, however Amio was stopped due to concern for LQT induced TdP. Pt remained on Lido gtt, however had recurrent TdP and cardioverted numerous other times. Overnight pt did relatively well and did not receive further shocks. She was then transferred to [facility] for further care, while on Lido gtt. Overnight, he Ca was noted to be low and was repleted, and her Lidocaine levels were noted to be supratherapeutic and since has been stopped. QTcs on EKGs since admission personally measured showing 450- 460 ms. She has been tachycardic and hypertensive at times, likely due to opiate withdrawal. Upon interview, pt states she is tired, however has no other complaints. Review of Systems: Review of systems as per HPI and, otherwise all other systems are negative. PMHX: has a past medical history of Hypertension. Polysubstance abuse PSHX: has a past surgical history that includes Hysterectomy. Family Hx: Reviewed and noncontributory Social Hx: Social History Tobacco Use Smoking status: Never Smokeless tobacco: Never Substance and Sexual Activity Drug use: Yes Types: Amphetamines, Benzodiazepines, Fentanyl, Opioid Sexual activity: Defer Alcohol Use: Not At Risk Frequency of Alcohol Consumption: Never Average Number of Drinks: Not on file Frequency of Binge Drinking: Never Allergies: Allergies Allergen Reactions Sumatriptan Anaphylaxis Reaction: ANAPHYLAXIS Sulfa (Sulfonamide Antibiotics) Rash Amoxicillin Rash Reaction: RASH Home Medications: HOME MEDICATIONS : chlordiazePOXIDE (LIBRIUM) 25 mg capsule losartan (COZAAR) 100 mg tablet Current Medications: cefTRIAXone, 1,000 mg, intravenous, Q24H KENTRELL enoxaparin, 40 mg, subcutaneous, Daily-2100 [Held by Provider] methadone, 190 mg, feeding tube, Daily metoprolol tartrate, 12.5 mg, oral, BID vancomycin, 15 mg/kg, intravenous, Q12H Objective Vital Signs: 24hr Min/Max: Temp Min: 36.7 ??C (98.1 ??F) Max: 37.1 ??C (98.7 ??F) Pulse Min: 115 Max: 140 BP Min: 130/81 Max: 163/104 Resp Min: 10 Max: 28 SpO2 Min: 89 % Max: 96 % Most Recent: Vitals: 07/02/22 1200 BP: 132/81 Pulse: (!) 129 Resp: 20 Temp: SpO2: (!) 89% Intake/Output: Intake/Output Summary (Last 24 hours) at 07/02/2022 1208 Last data filed at 07/02/2022 0800 Gross per 24 hour Intake 0 ml Output 365 ml Net -365 ml Physical Exam: General appearance: Fatigued middle aged female HENT:Dry MM Eyes: dilated Pupil Lungs: CTAB, no w/r/r, non-labored Heart: Tachy, S1, S2 normal, no murmur, rub or gallop. JVP not elevated, no LE edema Abdomen: soft, NT/ND; bowel sounds normal Extremities: warm and dry Skin: erythema and multiple scars over right shoulder, c/w previous fentanyl injection sites Neurologic: No abnormal movements, non-focal exam Lab/Radiology/Diagnostic Review: Labs: Recent Labs Lab Units 07/02/22 0600 07/01/22 204 HEMOGLOBIN g/dL 12.7 13.2 HEMATOCRIT % 39.7 40.0 WBC K/cumm 23.8* 23.3* PLATELETS K/cumm 368 344 Recent Labs Lab Units 07/02/22 0734 07/01/222 SODIUM mmol/L 137 135 POTASSIUM PLASMA mmol/L 4.3 5.6* CHLORIDE mmol/L 104 103 CO2 mmol/L 21* 19* ANIONGAP mmol/L 12 13 BUN SERUM mg/dL 14 9 CREATININE mg/dL 0.98 0.83 CALCIUM mg/dL 8.5 8.9 MAGNESIUM mg/dL 2.0 2.1 Recent Labs Lab Units 07/01/22 204 ALBUMIN g/dL 3.9 ALK PHOS Units/L 95 AST Units/L 66* ALT Units/L 40 BILIRUBIN TOTAL mg/dL 0.6 Recent Labs Lab Units 07/01/222 APTT sec 26* INR 1.5* Cultures: No results found for: MICROBIOLOGY I personally reviewed the Telemetry images with the following findings: ST, no further episodes of TdP I personally reviewed the ECG images with the following findings: 07/02 EKG: ST, QTc personally measured in 460s. MOOK in anterior leads 4/6 PM EKG: ST, QTc personally measured at 450s(on Lido gtt), MOOK in anterior leads TTE: Conclusions: Normal left ventricular wall thickness. Severe global left ventricular systolic dysfunction. There is pseudonormal diastolic dysfunction Grade II. Ejection fraction is visually estimated at 28 %. These segments of the LV are hypokinetic mid anterior segment, apical segment, apical lateral segment and apical inferior segment. Picture could be compatible with Takotsubo or ischemic Cardiomyopathy. Cardiac catheterization: Reviewed reports in pt's chart showing no CAD and Takutsubo like CM I personally reviewed the CXR images with the following findings: No significant cardiopulm disease. R PICC present Assessment/Plan Margy Saldana is a 41 y.o. female with a history of HTN and PSA presenting with CP, tachypalpiations. Electrophysiology has been consulted for TdP. #PMVT/TdP: Likely combination of acquired long QT from methadone use along with unsure other PSA aswell as possible contribution from pt's atypical takutsubo CM. Lidocaine levels supratherapeutic and needed to stop gtt at this time. Fortunately pt has not had further TdP -Would hold on BB at this time, as pt's tachycardia with opioid w/d is somewhat protective -Daily EKGs to eval QTc -Can consider additional Mg vs. Mag infusion if she resumes having TdP vs. Rechecking Lido level and starting at lower dose -Would attempt to avoid QT prolonging agents as best as possible. Understandable that Methadone mayneed to be weaned to avoid worsened w/d symptoms, however using this may precipitate further electrically instability. #NICM/Takutsubo: Appears euvolemic. Unclear if repeat TdP precipitated this or if this was contributory to TdP. Will need GDMT introduced through pt's hospitalization, would hold on BB at this time however until QT remains reliably WNL #PSA/opioid withdrawal: Treatment per primary team #UE cellultis: Abx per primary team We appreciate the ability to be involved in this patient's care. Rashaun Benavidez MD Clinical Cardiac Electrophysiology [facility] [place] at 12:08 PM 07/02/22 * Renaldo Hernandez NP - 07/02/2022 9:02 AM CDTAssociated Order(s): IP CONSULT TO CARDIOLOGY CARDIOLOGY CONSULT DATE OF CONSULT: 07/02/2022 CHIEF COMPLAINT Palpitations HPI Patient was requested to be seen in consultation by Nik Logan APRN for takotsubo cardiomyopathy. Margy Saldana is a 41 y.o. female with a past medical history of hypertension, opioid substance abuse. According to documentation, on 06/30/2022 she took a fentanyl pill and immediately afterwards began to experience chest pain and palpitations. EMS was called and she was found to be in polymorphic ventricular tachycardia. She was brought to [facility] and underwent cardiac catheterization which demonstrated normal coronaries, possible takotsubo cardiomyopathy. Patient had recurrent ventricular tachycardia in the cardiac cath lab manager and was shocked 4 times. She received magnesium and was started on a lidocaine drip. She was transferred to [facility] on the evening of 07/01/2022 for electrophysiology evaluation. MEDICAL HISTORY Past Medical History: Diagnosis Date ??? Hypertension Social History Tobacco Use ??? Smoking status: Never ??? Smokeless tobacco: Never Substance and Sexual Activity ??? Drug use: Yes Types: Amphetamines, Benzodiazepines, Fentanyl, Opioid ??? Sexual activity: Defer Alcohol Use: Not At Risk ??? Frequency of Alcohol Consumption: Never ??? [...] day as needed for anxiety 30 capsule 0 Unknown ??? losartan (COZAAR) 100 mg tablet Take 1 tablet (100 mg total) by mouth daily 30 tablet 11 Current Facility-Administered Medications: ??? cefepime (MAXIPIME) 2,000 mg in sodium chloride 0.9% 100 mL IVPB, 2,000 mg, intravenous, Q8H KENTRELL, Nik Logan APRN, Last Rate: 200 mL/hr at 07/02/22210, 2,000 mg at 07/02/22210 ??? dextrose 5% and Lactated Ringer's infusion, 40 mL/hr, intravenous, Continuous, Laura Logan APRN, Last Rate: 40 mL/hr at 07/02/22604, 40 mL/hr at 07/02/22604 ??? enoxaparin (LOVENOX) syringe 40 mg, 40 mg, subcutaneous, Daily-2100, Nik Logan APRN, 40 mg at 07/02/22 0016 ??? magnesium sulfate 4 g/100 mL in water (premix) 4 g, 4 g, intravenous, Once, David Last PA ??? ondansetron (ZOFRAN) injection 4 mg, 4 mg, intravenous, Q6H PRN, David Last PA ??? oxyCODONE (ROXICODONE) tablet 10 mg, 10 mg, oral, Q4H PRN, Bridgett Fry MD, 10 mg at 07/02/22603 ??? vancomycin 1250 mg/250 mL in sodium chloride 0.9% (premix) 1,250 mg, 15 mg/kg, intravenous, Q12H, Bridgett Fry MD REVIEW OF SYSTEMS Review of Systems Cardiovascular: Positive for chest pain. Gastrointestinal: Positive for nausea and vomiting. Patient sleeping, very lethargic but arousable. Unable to obtain complete review of systems due to patient's lethargy. LABS AND OTHER DIAGNOSTIC TESTS Lab Results Component Value Date WBC 23.8 (H) 07/02/2022 HGB 12.7 07/02/2022 HCT 39.7 07/02/2022 MCV 86.7 07/02/2022 Recent Labs Lab Units 07/02/22 0734 07/01/222041 CO2 mmol/L 21* 19* CREATININE mg/dL 0.98 0.83 CALCIUM mg/dL 8.5 8.9 TOTAL PROTEIN g/dL -- 7.6 BILIRUBIN TOTAL mg/dL -- 0.6 ALK PHOS Units/L -- 95 ALT Units/L -- 40 AST Units/L -- 66* GLUCOSE mg/dL 260* 138 EKG on admission, which I personally reviewed, demonstrated sinus tachycardia, LVH, can not rule out old anterior NE, T-wave abnormality, consider ischemia, heart rate 121. Chest x-ray on admission, which I personally reviewed, demonstrated no acute findings. Cardiac catheterization done 06/30/2022, which I personally reviewed, demonstrated normal coronary arteries, elevated LVEDP, findings suggestive of takotsubo cardiomyopathy. Echocardiogram done 06/30/2022, which I personally reviewed, demonstrated EF 60-65%, mid anteroseptal akinetic, apical septum, apical cap and mid inferoseptal hypokinetic. Echocardiogram done today, 07/02/2022, which I personally reviewed, demonstrated EF 20%, grade 2 diastolic dysfunction, hypokinetic mid anterior segment, apical segment, apical lateral segment and apical inferior segment. PHYSICAL EXAM Vitals: 07/02/22 0745 07/02/22 0800 07/02/22 0815 07/02/22 0830 BP: 140/85 (!) 153/102 BP Location: Patient Position: Pulse: 122 121 123 125 Resp: 17 16 15 16 Temp: TempSrc: SpO2: 91% 91% 92% 92% Weight: Height: Physical Exam Vitals reviewed. Constitutional: Comments: Sleeping, arousable HENT: Head: Normocephalic and atraumatic. Nose: Nose normal. Eyes: Conjunctiva/sclera: Conjunctivae normal. Cardiovascular: Rate and Rhythm: Normal rate and regular rhythm. Pulmonary: Effort: Pulmonary effort is normal. Breath sounds: Normal breath sounds. Abdominal: General: There is no distension. Palpations: Abdomen is soft. Tenderness: There is no abdominal tenderness. Musculoskeletal: Right lower leg: No edema. Left lower leg: No edema. Comments: Bilateral upper arms erythematous Neurological: Comments: Sleeping, arousable Psychiatric: Comments: Sleeping, arousable ASSESSMENT -cardiomyopathy, probable takotsubo -polymorphic ventricular tachycardia -leukocytosis -cellulitis of arms -opioid substance abuse -hypertension PLAN/RECOMMENDATIONS -cardiomyopathy, probable takotsubo: Echo performed 07/01 shows EF 28%, hypokinetic mid anterior segment, apical segment, apical lateral segment and apical inferior segment. Normal coronaries her catheterization 06/30/2022. Plan to initiate GDMT when clinically stable. -polymorphic ventricular tachycardia: Await EP recommendations. -leukocytosis: Continue antibiotics per ICU team. -cellulitis of arms -opioid substance abuse -hypertension: Will continue to observe off of antihypertensives for now. Plan to initiate GDMT forcardiomyopathy when clinically stable. My total encounter time on 07/02/2022 was 38 minutes which was spent in [...] NP Cosigned by Stefany Winkler DO at 07/02/2022 2:49 PM CDT Associated attestation - Stefany Winkler DO - 07/02/2022 2:49 PM CDT I personally performed a substantive portion of this patient encounter in conjunction with renaldo hernandez NP. My impression/plan is -polymorphic ventricular tachycardia: Patient has had episodes of polymorphic ventricular tachycardia. She is currently on lidocaine drip. EP has been consulted, will await EP recommendations. -cardiomyopathy, likely takotsubo: Patient has EF of around 30-35%, with mid anterior, anteroseptal, anteroapical and apical akinesis. Cardiac catheterization demonstrated no significant coronary artery disease. Will continue low-dose metoprolol for now. Will add goal-directed medical therapy as BPcan tolerate. -leukocytosis: Continue antibiotics per ICU team. -cellulitis, bilateral arms: Patient has cellulitis of arms, apparently related to skin popping of narcotics. Continue antibiotics per ICU. -opioid substance abuse: Patient does appear to be going through active withdrawal, with tachycardia, nausea, vomiting. Management per critical care team. -hypertension: Continue metoprolol. Will add other medications for LV dysfunction as tolerated. I spent 50 minutes of non-overlapping time managing the patient independent of renaldo Hernandez NP today. documented in this encounter Nursing Notes * Bladimir Hills RN - 07/03/2022 3:04 PM CDT Patient transferred to 9th floor to room 916; Boyfriend, Felipe took belonging up to the room following staff; patient was given 1 dose of tylenol for headache complaints; patient offered food and drink and refused because complaints of being exhausted and nauseous; skin check was done with abril Mclean RN; * Davina Dennis RN - 07/01/2022 10:49 PM CDT RN called lab at [phone] asking for customer service driver to come draw blood cultures. 2 RN's attempted but were unsuccessful. documented in this encounter Miscellaneous Notes * Plan of Care - Sharri Flynn RN - 07/08/2022 3:03 PM CDT Goals: Clinical Goals for the Shift: VSS, comfort and safety, lifevest, discharge planning Summary: Problem: Medication: Goal: Satisfaction with pain management regimen will improve Outcome: Progressing Problem: Lack of Knowledge: Goal: Ability to develop a pain control plan will improve Outcome: Progressing Goal: Ability to identify pain intensity on a pain scale and rate it consistently will improve Outcome: Progressing Goal: Ability to notify healthcare provider of pain before it becomes unmanageable or unbearable will improve Outcome: Progressing * Plan of Care - Yamel Pelaez RN - 07/08/2022 10:47 AM CDT Noted Cardiology ordered & nursing/clerical to arrange for LifeVest (Assure) prior to discharge. She can be discharged from a cardiac standpoint once she is fitted with LifeVest. Nursing to complete Meds to Bed upon discharge. Disposition code 01. No further CM follow-up needed. XU Cowan-RN [facility] [phone] * Consults, Subsequent - Rashaun Benavidez MD - 07/08/2022 7:42 AM CDT Cardiology Daily Progress Note - Electrophysiology Chief complaint: CP, tachypalpiations, Tdp from acquired LQT Interval History: Back to baseline, feeling well without concerns. No CP, LH, dizziness or palpiations. Tele reviewed showing SR/ST. EKG from this AM reviewed showing SR with QTc 450s. Objective Vital Signs: 24hr Min/Max: Temp Min: 36.7 ??C (98 ??F) Max: 37.2 ??C (99 ??F) Pulse Min: 78 Max: 91 BP Min: 118/79 Max: 143/87 Resp Min: 18 Max: 19 SpO2 Min: 95 % Max: 99 % Most Recent: Vitals: 07/08/22 0432 BP: 118/79 Pulse: 78 Resp: 18 Temp: 37.2 ??C (98.9 ??F) SpO2: 96% Intake/Output: Intake/Output Summary (Last 24 hours) at 07/08/2022 0746 Last data filed at 07/08/2022 0525 Gross per 24 hour Intake -- Output 0 ml Net 0 ml Physical Exam: General appearance: no acute distress HENT:NCAT, MMM, Eyes: Anicteric Lungs: CTAB, no w/r/r, non-labored Heart: RRR, S1, S2 normal, no murmur, rub or gallop. JVP not elevated, no LE edema Abdomen: soft, NT/ND; bowel sounds normal Extremities: UE erythema much improved, scarring stable Skin: warm and dry Neurologic: No abnormal movements, non-focal exam Current Medications: Current Facility-Administered Medications: acetaminophen (TYLENOL) tablet 650 mg, 650 mg, oral, Q6H PRN, 650 mg at 07/03/22 1255 aluminum-magnesium hydroxide-simethicone (MAALOX) 40-40-4 mg/mL oral suspension 30 mL, 30 mL, oral,Q4H PRN, 30 mL at 07/05/22 0528 enoxaparin (LOVENOX) syringe 40 mg, 40 mg, subcutaneous, Daily-2100, 40 mg at 07/06/222049 [Held by Provider] losartan (COZAAR) tablet 100 mg, 100 mg, oral, Daily, 100 mg at 07/06/22 0824 metoprolol XL (TOPROL-XL) extended release tablet 25 mg, 25 mg, oral, Daily, 25 mg at 07/07/22 08 ondansetron (ZOFRAN) injection 4 mg, 4 mg, intravenous, Q4H PRN, 4 mg at 07/05/22 0528 senna-docusate (PERICOLACE) 8.6-50 mg per tablet 1 tablet, 1 tablet, oral, BID, 1 tablet at 07/03/222116 Lab/Radiology/Diagnostic Review: Labs: Recent Labs Lab Units 07/07/22 0508 07/06/22 0517 07/05/22 1015 07/04/22 0835 07/03/22 0447 HEMOGLOBIN g/dL 10.3* 11.4* 11.9 13.0 12.2 HEMATOCRIT % 31.5* 34.9* 36.7 39.3 37.7 WBC K/cumm 12.4* 10.8* 13.2* 12.9* 11.7* PLATELETS K/cumm 408* 223 235 293 250 Recent Labs Lab Units 07/07/22 1210 07/07/22 0508 07/06/22 1715 07/06/22 0645 07/05/22 1015 07/04/22 0835 07/03/22 0447 SODIUM mmol/L -- 138 -- 137 138 138 140 POTASSIUM PLASMA mmol/L 3.6 6.3* < > 5.2* 3.4 3.0* 4.0 CHLORIDE mmol/L -- 105 -- 102 101 101 106 CO2 mmol/L -- 29 -- 28 28 24 26 ANIONGAP mmol/L -- 4 -- 7 9 13 8 BUN SERUM mg/dL -- 11 -- 10 6* 7* 16 CREATININE mg/dL -- 0.90 -- 0.90 0.94 0.88 0.91 CALCIUM mg/dL -- 8.4* -- 8.1* 8.4* 8.8 8.1* MAGNESIUM mg/dL -- 2.0 -- 2.0 2.0 2.0 2.3 < > = values in this interval not displayed. Recent Labs Lab Units 07/01/222041 ALBUMIN g/dL 3.9 ALK PHOS Units/L 95 AST Units/L 66* ALT Units/L 40 BILIRUBIN TOTAL mg/dL 0.6 Recent Labs Lab Units 07/01/222121 APTT sec 26* INR 1.5* Cultures: Lab Results Component Value Date MICROBIOLOGY 07/02/2022 Final Report: Growth indicates upper respiratory renay. MICROBIOLOGY Final Report: No growth 07/02/2022 Assessment/Plan Margy Saldana is a 41 y.o. female with a history of HTN and PSA presenting with CP, tachypalpiations. Electrophysiology has been consulted for TdP. #PMVT/TdP: No further recurrence at this time, QTc has normalized on EKG -Cont Metoprolol Succinate 25 mg daily as she is electrically tolerating this -Electrolyte repletion as needed #NICM/Takutsubo: Appears euvolemic. Unclear if repeat TdP precipitated this or if this was contributory to TdP. -Metoprolol as above -Likely restart Losartan today at lower dose as BP is better controlled #HyperK: Recheck yesterday afternoon WNL, mildly low. Await today's BMP and consider initiating daily supplementation #HTN: Likely resume Losartan and decreased dose due to improvements in BPs Rest of the plan as per primary team. Thank you for the consult. We will sign off at this time. Outpatient follow up will be made Please call with additional questions or concerns. Rashaun Benavidez MD Clinical Cardiac Electrophysiology [facility] at 7:46 AM 07/08/22 * Plan of Care - Nilton Mccann RN - 07/07/2022 10:00 PM CDT Problem: Health Behavior: Goal: Understanding of discharge needs will improve Outcome: Progressing Problem: Lack of Knowledge: Goal: Ability to develop a pain control plan will improve Outcome: Progressing Goal: Ability to identify pain intensity on a pain scale and rate it consistently will improve Outcome: Progressing Goal: Ability to notify healthcare provider of pain before it becomes unmanageable or unbearable will improve Outcome: Progressing Problem: Medication: Goal: Satisfaction with pain management regimen will improve Outcome: Progressing Problem: Sensory: Goal: Ability to identify factors that increase the pain will improve Outcome: Progressing Goal: Pain level will decrease Outcome: Progressing Problem: Activity: Goal: Ability to return to normal activity level will improve Outcome: Progressing Problem: Lack of Knowledge: Goal: Knowledge of the prescribed therapeutic regimen will improve Outcome: Progressing Problem: Coping: Goal: Ability to cope will improve Outcome: Progressing Problem: Health Behavior: Goal: Identification of resources available to assist in meeting health care needs will improve Outcome: Progressing Problem: Sensory: Goal: Pain level will decrease Outcome: Progressing Goals: Clinical Goals for the Shift: VSS, safety, comfort * Plan of Care - Yamel Pelaez RN - 07/07/2022 11:35 AM CDT Per DCAM report & chart review, pt continues on IV Vancomycin for cellulitis, UTI. [facility] PCP referral previously entered. Nursing staff to complete Meds to [facility] upon discharge.No new discharge needs identified. Disposition code 01. XU Cowan-RN [facility] [phone] * Plan of Care - Tete Melo RN - 07/07/2022 10:45 AM CDT Problem: Health Behavior: Goal: Understanding of discharge needs will improve Outcome: Progressing Problem: Lack of Knowledge: Goal: Ability to develop a pain control plan will improve Outcome: Progressing Goal: Ability to identify pain intensity on a pain scale and rate it consistently will improve Outcome: Progressing Goal: Ability to notify healthcare provider of pain before it becomes unmanageable or unbearable will improve Outcome: Progressing Problem: Medication: Goal: Satisfaction with pain management regimen will improve Outcome: Progressing Problem: Sensory: Goal: Ability to identify factors that increase the pain will improve Outcome: Progressing Goal: Pain level will decrease Outcome: Progressing Problem: Activity: Goal: Ability to return to normal activity level will improve Outcome: Progressing Problem: Lack of Knowledge: Goal: Knowledge of the prescribed therapeutic regimen will improve Outcome: Progressing Problem: Coping: Goal: Ability to cope will improve Outcome: Progressing Problem: Health Behavior: Goal: Identification of resources available to assist in meeting health care needs will improve Outcome: Progressing Problem: Sensory: Goal: Pain level will decrease Outcome: Progressing Goals: Clinical Goals for the Shift: VSS, safety,comfort * Consults, Subsequent - Rashaun Benavidez MD - 07/07/2022 7:29 AM CDT Cardiology Daily Progress Note - Electrophysiology Chief complaint: CP, tachypalpitations, TdP from acquired LQT Interval History: Pt improved symptomatically today. No more diarrhea and nausea significantly improved. EKG today reviewed showing NSR with QTc of 450s. K on BMP found to be 6.8 and given inderjit loco concern that BMP not drawn correctly. Objective Vital Signs: 24hr Min/Max: Temp Min: 36.6 ??C (97.9 ??F) Max: 37.2 ??C (99 ??F) Pulse Min: 74 Max: 107 BP Min: 100/67 Max: 129/77 Resp Min: 18 Max: 20 SpO2 Min: 93 % Max: 97 % Most Recent: Vitals: 07/07/22 0509 BP: 119/76 Pulse: 74 Resp: 19 Temp: 37.2 ??C (98.9 ??F) SpO2: 95% Intake/Output: Intake/Output Summary (Last 24 hours) at 07/07/2022 0730 Last data filed at 07/06/2022 1906 Gross per 24 hour Intake 222 ml Output -- Net 222 ml Physical Exam: General appearance: no acute distress HENT:NCAT, MMM, Eyes: Anicteric Lungs: CTAB, no w/r/r, non-labored Heart: RRR, S1, S2 normal, no murmur, rub or gallop. JVP not elevated, no LE edema Abdomen: soft, NT/ND; bowel sounds normal Extremities: significant scarring of b/l shoulders Skin: warm and dry Neurologic: No abnormal movements, non-focal exam Current Medications: Current Facility-Administered Medications: acetaminophen (TYLENOL) tablet 650 mg, 650 mg, oral, Q6H PRN, 650 mg at 07/03/22 1255 aluminum-magnesium hydroxide-simethicone (MAALOX) 40-40-4 mg/mL oral suspension 30 mL, 30 mL, oral,Q4H PRN, 30 mL at 07/05/22 0528 dextrose 5% and Lactated Ringer's infusion, 40 mL/hr, intravenous, Continuous, Stopped at 07/06/22 1616 enoxaparin (LOVENOX) syringe 40 mg, 40 mg, subcutaneous, Daily-2100, 40 mg at 07/06/222049 [Held by Provider] losartan (COZAAR) tablet 100 mg, 100 mg, oral, Daily, 100 mg at 07/06/22823 metoprolol tartrate (LOPRESSOR) immediate release tablet 12.5 mg, 12.5 mg, oral, BID, 12.5 mg at 07/06/222049 ondansetron (ZOFRAN) injection 4 mg, 4 mg, intravenous, Q4H PRN, 4 mg at 07/05/22 05 senna-docusate (PERICOLACE) 8.6-50 mg per tablet 1 tablet, 1 tablet, oral, BID, 1 tablet at 07/03/222116 vancomycin 1250 mg/250 mL in sodium chloride 0.9% (premix) 1,250 mg, 15 mg/kg, intravenous, Q12H, 1,250 mg at 07/06/222049 Lab/Radiology/Diagnostic Review: Labs: Recent Labs Lab Units 07/07/22 0508 07/06/22 0517 07/05/22 1015 07/04/22 0835 07/03/22 0447 HEMOGLOBIN g/dL 10.3* 11.4* 11.9 13.0 12.2 HEMATOCRIT % 31.5* 34.9* 36.7 39.3 37.7 WBC K/cumm 12.4* 10.8* 13.2* 12.9* 11.7* PLATELETS K/cumm 408* 223 235 293 250 Recent Labs Lab Units 07/07/22 0508 07/06/22 1715 07/06/22 0645 07/05/22 1015 07/04/22 0835 07/03/22 0447 SODIUM mmol/L 138 -- 137 138 138 140 POTASSIUM PLASMA mmol/L 6.3* < > 5.2* 3.4 3.0* 4.0 CHLORIDE mmol/L 105 -- 102 101 101 106 CO2 mmol/L 29 -- 28 28 24 26 ANIONGAP mmol/L 4 -- 7 9 13 8 BUN SERUM mg/dL 11 -- 10 6* 7* 16 CREATININE mg/dL 0.90 -- 0.90 0.94 0.88 0.91 CALCIUM mg/dL 8.4* -- 8.1* 8.4* 8.8 8.1* MAGNESIUM mg/dL 2.0 -- 2.0 2.0 2.0 2.3 < > = values in this interval not displayed. Recent Labs Lab Units 07/01/22 2042 ALBUMIN g/dL 3.9 ALK PHOS Units/L 95 AST Units/L 66* ALT Units/L 40 BILIRUBIN TOTAL mg/dL 0.6 Recent Labs Lab Units 07/01/22 2122 APTT sec 26* INR 1.5* Cultures: Lab Results Component Value Date MICROBIOLOGY 07/02/2022 Final Report: Growth indicates upper respiratory renay. MICROBIOLOGY Final Report: No growth 07/02/2022 Tele personally reviewed showing ST/SR. Assessment/Plan Margy Saldana is a 41 y.o. female with a history of HTN and PSA presenting with CP, tachypalpiations. Electrophysiology has been consulted for TdP. #PMVT/TdP: No further recurrence at this time -Change Metop tartrate to Succinate 25 mg today for GDMT -Will need K rechecked this afternoon to ensure not hyperkalemic and replete if necessary -Repletion of Mg and Ca2+ as needed #NICM/Takutsubo: Appears euvolemic. Unclear if repeat TdP precipitated this or if this was contributory to TdP. -Losartan on hold due to hyperK, however this may be a lab/drawing error. Recheck K this afternoon to see if this can be restarted -Metop Succinate as above #HyperK: As above #HTN: Significantly improved over past 24 hours. May need to initiate Losartan at lower dose Rest of the plan as per primary team. Thank you for the consult. We will continue to follow. Pleasecall with additional questions or concerns. Rashaun Benavidez MD Clinical Cardiac Electrophysiology [facility] at 7:30 AM 07/07/22 * Plan of Care - Nilton Mccann RN - 07/06/2022 7:27 PM CDT Problem: Health Behavior: Goal: Understanding of discharge needs will improve Outcome: Progressing Problem: Lack of Knowledge: Goal: Ability to develop a pain control plan will improve Outcome: Progressing Goal: Ability to identify pain intensity on a pain scale and rate it consistently will improve Outcome: Progressing Goal: Ability to notify healthcare provider of pain before it becomes unmanageable or unbearable will improve Outcome: Progressing Problem: Medication: Goal: Satisfaction with pain management regimen will improve Outcome: Progressing Problem: Sensory: Goal: Ability to identify factors that increase the pain will improve Outcome: Progressing Goal: Pain level will decrease Outcome: Progressing Problem: Activity: Goal: Ability to return to normal activity level will improve Outcome: Progressing Problem: Lack of Knowledge: Goal: Knowledge of the prescribed therapeutic regimen will improve Outcome: Progressing Problem: Coping: Goal: Ability to cope will improve Outcome: Progressing Problem: Health Behavior: Goal: Identification of resources available to assist in meeting health care needs will improve Outcome: Progressing Problem: Sensory: Goal: Pain level will decrease Outcome: Progressing Goals: Clinical Goals for the Shift: VSS, safety,comfort * Consults, Subsequent - Rashaun Benavidez MD - 07/06/2022 10:29 AM CDT Cardiology Daily Progress Note - Electrophysiology Chief complaint: CP, tachypalpitations, acquired LQT and TdP Interval History: Feeling better today. Able to tolerate food better. Denies palpiations, CP, LH, dizziness. Lidocaine level severely elevated and lido gtt stopped, however labs have been drawn of PICC line, thus concern for inaccurate levels. EKG today showing SR with QTC of 460s. Objective Vital Signs: 24hr Min/Max: Temp Min: 36.6 ??C (97.9 ??F) Max: 36.9 ??C (98.4 ??F) Pulse Min: 73 Max: 119 BP Min: 114/75 Max: 135/84 Resp Min: 17 Max: 20 SpO2 Min: 95 % Max: 98 % Most Recent: Vitals: 07/06/22 0815 BP: 129/77 Pulse: 75 Resp: Temp: 36.6 ??C (97.9 ??F) SpO2: 96% Intake/Output: Intake/Output Summary (Last 24 hours) at 07/06/2022 1029 Last data filed at 07/06/2022 0425 Gross per 24 hour Intake -- Output 600 ml Net -600 ml Physical Exam: General appearance: no acute distress HENT:NCAT, MMM, Eyes: Anicteric Lungs: CTAB, no w/r/r, non-labored Heart: Tachy, reg rhythm, S1, S2 normal, no murmur, rub or gallop. JVP not elevated, no LE edema Abdomen: soft, NT/ND; bowel sounds normal Extremities: Erythema improved over shoulders Skin: warm and dry Neurologic: No abnormal movements, non-focal exam Current Medications: Current Facility-Administered Medications: acetaminophen (TYLENOL) tablet 650 mg, 650 mg, oral, Q6H PRN, 650 mg at 07/03/22 1255 aluminum-magnesium hydroxide-simethicone (MAALOX) 40-40-4 mg/mL oral suspension 30 mL, 30 mL, oral,Q4H PRN, 30 mL at 07/05/22 0528 dextrose 5% and Lactated Ringer's infusion, 40 mL/hr, intravenous, Continuous, Last Rate: 40 mL/hr at 07/04/22 0257, 40 mL/hr at 07/04/22 0257 enoxaparin (LOVENOX) syringe 40 mg, 40 mg, subcutaneous, Daily-2100, 40 mg at 07/05/222054 [Held by Provider] losartan (COZAAR) tablet 100 mg, 100 mg, oral, Daily, 100 mg at 07/06/22 0824 ondansetron (ZOFRAN) injection 4 mg, 4 mg, intravenous, Q4H PRN, 4 mg at 07/05/22 0528 senna-docusate (PERICOLACE) 8.6-50 mg per tablet 1 tablet, 1 tablet, oral, BID, 1 tablet at 07/03/222116 vancomycin 1250 mg/250 mL in sodium chloride 0.9% (premix) 1,250 mg, 15 mg/kg, intravenous, Q12H, 1,250 mg at 07/06/22 0828 Lab/Radiology/Diagnostic Review: Labs: Recent Labs Lab Units 07/06/22 0517 07/05/22 1015 07/04/22 0835 07/03/22 0447 07/02/22 0600 HEMOGLOBIN g/dL 11.4* 11.9 13.0 12.2 12.7 HEMATOCRIT % 34.9* 36.7 39.3 37.7 39.7 WBC K/cumm 10.8* 13.2* 12.9* 11.7* 23.8* PLATELETS K/cumm 223 235 293 250 368 Recent Labs Lab Units 07/06/22 0645 07/05/22 1015 07/04/22 0835 07/03/22 0447 07/02/22 0734 SODIUM mmol/L 137 138 138 140 137 POTASSIUM PLASMA mmol/L 5.2* 3.4 3.0* 4.0 4.3 CHLORIDE mmol/L 102 101 101 106 104 CO2 mmol/L 28 28 24 26 21* ANIONGAP mmol/L 7 9 13 8 12 BUN SERUM mg/dL 10 6* 7* 16 14 CREATININE mg/dL 0.90 0.94 0.88 0.91 0.98 CALCIUM mg/dL 8.1* 8.4* 8.8 8.1* 8.5 MAGNESIUM mg/dL 2.0 2.0 2.0 2.3 2.0 Recent Labs Lab Units 07/01/22 2042 ALBUMIN g/dL 3.9 ALK PHOS Units/L 95 AST Units/L 66* ALT Units/L 40 BILIRUBIN TOTAL mg/dL 0.6 Recent Labs Lab Units 07/01/222 APTT sec 26* INR 1.5* Cultures: Lab Results Component Value Date MICROBIOLOGY 07/02/2022 Final Report: Growth indicates upper respiratory renay. MICROBIOLOGY Final Report: No growth 07/02/2022 Tele personally reviewed showing ST, no TdP Assessment/Plan Margy N Haldeman is a 41 y.o. female with a history of HTN and PSA presenting with CP, tachypalpiations. Electrophysiology has been consulted for TdP. #PMVT/TdP: No further recurrence at this time -Lidocaine gtt d/c'ed. Lido level was severely supra therapeutic, however was possibly incorrectly drawn. QTc has relatively normalized on AM EKG, thus will not restart -Cautiously initiate Metoprolol 12.5 BID starting this evening, with plans to consolidate to Succinate for GDMt in light of pt's Takutsubo -Aggressive repletion of electrolytes(Calcium repletion ordered) -Avoid QT prolonging agents as possible #NICM/Takutsubo: Appears euvolemic. Unclear if repeat TdP precipitated this or if this was contributory to TdP. -Losartan on hold due to mild hyperK, will eval when this can be restarted -Metoprolol started as above #HTN: Significantly improved over past 24 hours. May need to initiate Losartan at lower dose #PSA/opioid withdrawal: Slowly improving. Would continue to hold Methadone to avoid QT prolongation. Further treatment per primary team #UE cellultis: Abx per primary team Rest of the plan as per primary team. Thank you for the consult. We will continue to follow. Pleasecall with additional questions or concerns. Rashaun Benavidez MD Clinical Cardiac Electrophysiology [facility] [place] at 10:29 AM 07/06/22 * Plan of Care - Tete Melo RN - 07/06/2022 9:32 AM CDT Problem: Health Behavior: Goal: Understanding of discharge needs will improve Outcome: Progressing Problem: Lack of Knowledge: Goal: Ability to develop a pain control plan will improve Outcome: Progressing Goal: Ability to identify pain intensity on a pain scale and rate it consistently will improve Outcome: Progressing Goal: Ability to notify healthcare provider of pain before it becomes unmanageable or unbearable will improve Outcome: Progressing Problem: Medication: Goal: Satisfaction with pain management regimen will improve Outcome: Progressing Problem: Sensory: Goal: Ability to identify factors that increase the pain will improve Outcome: Progressing Goal: Pain level will decrease Outcome: Progressing Problem: Activity: Goal: Ability to return to normal activity level will improve Outcome: Progressing Problem: Lack of Knowledge: Goal: Knowledge of the prescribed therapeutic regimen will improve Outcome: Progressing Problem: Coping: Goal: Ability to cope will improve Outcome: Progressing Problem: Health Behavior: Goal: Identification of resources available to assist in meeting health care needs will improve Outcome: Progressing Problem: Sensory: Goal: Pain level will decrease Outcome: Progressing Goals: Clinical Goals for the Shift: VSS, safety,comfort * Plan of Care - Nilton Mccann RN - 07/05/2022 10:48 PM CDT Problem: Health Behavior: Goal: Understanding of discharge needs will improve Outcome: Progressing Problem: Lack of Knowledge: Goal: Ability to develop a pain control plan will improve Outcome: Progressing Goal: Ability to identify pain intensity on a pain scale and rate it consistently will improve Outcome: Progressing Goal: Ability to notify healthcare provider of pain before it becomes unmanageable or unbearable will improve Outcome: Progressing Problem: Medication: Goal: Satisfaction with pain management regimen will improve Outcome: Progressing Problem: Sensory: Goal: Ability to identify factors that increase the pain will improve Outcome: Progressing Goal: Pain level will decrease Outcome: Progressing Problem: Activity: Goal: Ability to return to normal activity level will improve Outcome: Progressing Problem: Lack of Knowledge: Goal: Knowledge of the prescribed therapeutic regimen will improve Outcome: Progressing Problem: Coping: Goal: Ability to cope will improve Outcome: Progressing Problem: Health Behavior: Goal: Identification of resources available to assist in meeting health care needs will improve Outcome: Progressing Problem: Sensory: Goal: Pain level will decrease Outcome: Progressing Goals: Clinical Goals for the Shift: VSS, safety,comfort * Initial Assessments - Angelita George RN - 07/05/2022 2:18 PM CDT CM Initial Assessment Interview Note Information Obtained From: Patient (07/05/22 1412) Admission Source: from home Impression: alert, oriented and independent Plan Includes: 41 year old female w/ PMH of HTN, and substance abuse w/ opioids. On 06/30 she reportsshe took a fentanyl pill which she suspects was laced w/ an upper because immediately after taking it she began to experience chest pain and palpitations. EMS was called and she was found to be foundin polymorphic ventricular tachycardia. She was initially taken to [facility] where initial treatment consisted of amio, lidocaine and magnesium. She was then taken to the CCL which demonstrated clean coronary arteries but c/f takotsubo cardiomyopathy. She now arrives to [facility] ICU for ongoingcardiology workup and a consult to EP (Dr. Benavidez). She arrives on a lidocaine gtt. Of note, the patient also utilizes skin popping as an administration vector for fentanyl and has c/f cellulitis to bilateral upper arms. 06/30/2022 cardiac catheterization [facility] clear coronaries Takostubo 07/01/2022 arrives to the ICU in V-tach status post fentanyl use drug screen positive for fentanyl methadone and opioids placed on withdrawal protocol were TTE 07/02/[address] elevation in V1, V2. Qtc 356, Repeat Qtc 3.9, 5.5, MgSO4 4gm ECHO - LVEF 28% with apical hypokinesis Primary Source of Transportation: Does the patient need discharge transport arranged?: No (07/05/221411) Health Insurance Coverage: [facility] Prescription Coverage: yes Pharmacy: [facility] [place] - [address] [address] [facility] [id number] [id number] - [place], [place] - [address] [facility] [id number] Primary Care Provider: No, Physician- none- referral placed to access line for assistance for MD that takes [place] Medicaid. Prior to Admission: Primary Caregiver: Self Who does the patient or legal guardian want to receive education instruction and discharge plans for after care assistance?: Decline Support System: Family members Support system contact info (name, phone, availablity): Maria L Faith (Mother) [phone] (M), patient designated medicare specialist Home Care Services: No Durable Medical Equipment: None Living Arrangements: Family members Type of Residence: Private residence Steps in home? : Yes, Outside of home Number of steps outside:: 5 steps (07/01/222014) SDOH: Transportation: In the past 12 months, has lack of transportation kept you from medical appointments or from getting medications?: No In the past 12 months, has lack of transportation kept you from meetings, work, or from getting things needed for daily living?: No (07/05/221411) Financial Resource: How hard is it for you to pay for the very basics like food, housing, medical care, and heating?: Not hard at all (07/05/221411) Housing: In the last 12 months, was there a time when you were not able to pay the mortgage or rent on time?: No In the last 12 months, how many places have you lived?: 1 In the last 12 months, was there a time when you did not have a steady place to sleep or slept in ashelter (including now)?: No (07/05/221411) Social Connections: In a typical week, how many times do you talk on the phone with family, friends, or neighbors?: More than three times a week How often do you get together with friends or relatives?: More than three times a week How often do you attend restorationist or judaism services?: Patient refused Do you belong to any clubs or organizations such as restorationist groups, unions, fraternal or athletic groups, or school groups?: Patient refused How often do you attend meetings of the clubs or organizations you belong to?: Patient refused Are you , , , , never , or living with a partner?: (07/05/221411) Food Insecurity: Within the past 12 months, you worried that your food would run out before you got the money to buymore.: Never true Within the past 12 months, the food you bought just didn't last and you didn't have money to get more.: Never true (07/05/221411) Potential discharge needs include: none Dialysis: n/a Behavioral Health Services: Behavioral Health Services: No (04/10/23 1412) Patient expects to be Discharged to: Private residence, (07/05/22 1412) Additional Information: n/a Patient's Identified Problem/Goal Problem: Ensure acute medical [...] Collaboration with patient, MD, direct care nurse, [employer], and other members of the health care team to assure needed interventions completed. 2. Return patient to optimal level of self-care post discharge. 3. [employer] will follow for Discharge Planning - interventions as needed 4. Anticipated level of care at discharge 5. Planned Discharge Disposition Angelita George RN BSN [employer] [phone] * Plan of Care - Tete Melo RN - 07/05/2022 11:31 AM CDT Problem: Health Behavior: Goal: Understanding of discharge needs will improve Outcome: Progressing Problem: Lack of Knowledge: Goal: Ability to develop a pain control plan will improve Outcome: Progressing Goal: Ability to identify pain intensity on a pain scale and rate it consistently will improve Outcome: Progressing Goal: Ability to notify healthcare provider of pain before it becomes unmanageable or unbearable will improve Outcome: Progressing Problem: Medication: Goal: Satisfaction with pain management regimen will improve Outcome: Progressing Problem: Sensory: Goal: Ability to identify factors that increase the pain will improve Outcome: Progressing Goal: Pain level will decrease Outcome: Progressing Problem: Activity: Goal: Ability to return to normal activity level will improve Outcome: Progressing Problem: Lack of Knowledge: Goal: Knowledge of the prescribed therapeutic regimen will improve Outcome: Progressing Problem: Coping: Goal: Ability to cope will improve Outcome: Progressing Problem: Health Behavior: Goal: Identification of resources available to assist in meeting health care needs will improve Outcome: Progressing Problem: Sensory: Goal: Pain level will decrease Outcome: Progressing Goals: Clinical Goals for the Shift: Increase activity * Consults, Subsequent - Rashaun Benavidez MD - 07/05/2022 7:43 AM CDT Cardiology Daily Progress Note - Electrophysiology Chief complaint: CP, tachypalpiations, opioid w/d Interval History: Main complaint on nausea and diarreha, which is mildly improving. Rare palpitations, but no CP, LH, dizziness or presyncope. QTc from 07/04 in 470s while on lidocaine gtt, however with severe electrolyte abnls. As well. Objective Vital Signs: 24hr Min/Max: Temp Min: 36.2 ??C (97.1 ??F) Max: 36.9 ??C (98.5 ??F) Pulse Min: 104 Max: 123 BP Min: 147/100 Max: 181/110 Resp Min: 16 Max: 22 SpO2 Min: 94 % Max: 100 % Most Recent: Vitals: 07/05/22 0540 BP: (!) 161/104 Pulse: 118 Resp: 18 Temp: 36.7 ??C (98.1 ??F) SpO2: 96% Intake/Output: Intake/Output Summary (Last 24 hours) at 07/05/2022 0743 Last data filed at 07/05/2022 0300 Gross per 24 hour Intake 200 ml Output 1200 ml Net -1000 ml Physical Exam: General appearance: no acute distress, more awake HENT:NCAT, dry MM, Eyes: Anicteric Lungs: CTAB, no w/r/r, non-labored Heart: tachy, normal rhythm, S1, S2 normal, no murmur, rub or gallop. JVP not elevated, no LE edema Abdomen: soft, NT/ND; bowel sounds hyperactive Extremities: extremities normal, warm and well-perfused, equal pulses Skin: UE erythema improving Neurologic: No abnormal movements, non-focal exam Current Medications: Current Facility-Administered Medications: acetaminophen (TYLENOL) tablet 650 mg, 650 mg, oral, Q6H PRN, 650 mg at 07/03/22 1255 aluminum-magnesium hydroxide-simethicone (MAALOX) 40-40-4 mg/mL oral suspension 30 mL, 30 mL, oral,Q4H PRN, 30 mL at 07/05/22527 dextrose 5% and Lactated Ringer's infusion, 40 mL/hr, intravenous, Continuous, Last Rate: 40 mL/hr at 07/04/22256, 40 mL/hr at 07/04/22256 enoxaparin (LOVENOX) syringe 40 mg, 40 mg, subcutaneous, Daily-2100, 40 mg at 07/04/222026 lidocaine in dextrose 5% 2 g/250 mL (8 mg/mL) infusion (premix), 2 mg/min, intravenous, Continuous,Last Rate: 15 mL/hr at 07/04/221827, 2 mg/min at 07/04/221827 loperamide (IMODIUM) capsule 2 mg, 2 mg, oral, QID PRN, 2 mg at 07/04/222041 losartan (COZAAR) tablet 100 mg, 100 mg, oral, Daily, 100 mg at 07/04/22 135 ondansetron (ZOFRAN) injection 4 mg, 4 mg, intravenous, Q4H PRN, 4 mg at 07/05/22527 senna-docusate (PERICOLACE) 8.6-50 mg per tablet 1 tablet, 1 tablet, oral, BID, 1 tablet at 07/03/222116 vancomycin 1250 mg/250 mL in sodium chloride 0.9% (premix) 1,250 mg, 15 mg/kg, intravenous, Q12H, 1,250 mg at 07/04/222026 Lab/Radiology/Diagnostic Review: Labs: Recent Labs Lab Units 07/04/22 0835 07/03/227 07/02/22 0600 07/01/22 204 HEMOGLOBIN g/dL 13.0 12.2 12.7 13.2 HEMATOCRIT % 39.3 37.7 39.7 40.0 WBC K/cumm 12.9* 11.7* 23.8* 23.3* PLATELETS K/cumm 293 250 368 344 Recent Labs Lab Units 07/04/22 0835 07/03/2244607/02/22 0734 07/01/22 2042 SODIUM mmol/L 138 140 137 135 POTASSIUM PLASMA mmol/L 3.0* 4.0 4.3 5.6* CHLORIDE mmol/L 101 106 104 103 CO2 mmol/L 24 26 21* 19* ANIONGAP mmol/L 13 8 12 13 BUN SERUM mg/dL 7* 16 14 9 CREATININE mg/dL 0.88 0.91 0.98 0.83 CALCIUM mg/dL 8.8 8.1* 8.5 8.9 MAGNESIUM mg/dL 2.0 2.3 2.0 2.1 Recent Labs Lab Units 07/01/22 2042 ALBUMIN g/dL 3.9 ALK PHOS Units/L 95 AST Units/L 66* ALT Units/L 40 BILIRUBIN TOTAL mg/dL 0.6 Recent Labs Lab Units 07/01/22 2122 APTT sec 26* INR 1.5* Cultures: Lab Results Component Value Date MICROBIOLOGY 07/02/2022 Final Report: Growth indicates upper respiratory renay. MICROBIOLOGY Preliminary Report: No growth to date. 07/02/2022 Tele reviewed: ST, no PMVT noted Assessment/Plan Margy Saldana is a 41 y.o. female with a history of HTN and PSA presenting with CP, tachypalpiations. Electrophysiology has been consulted for TdP. #PMVT/TdP: No further recurrence at this time -Decrease Lidocaine gtt to 0.5 this AM. Check Lido level this afternoon, if still supratherapeutic,will d/c altogether. -Hold on BB for GMDT currently, would like to eval QTc off lidocaine(hopefully tomorrow) prior to initiating -Aggressive repletion of electrolytes -Avoid QT prolonging agents as possible #NICM/Takutsubo: Appears euvolemic. Unclear if repeat TdP precipitated this or if this was contributory to TdP. -Losartan initiated -Will determine when BB can be safely initiated #HTN: Likely in setting of opioid w/d. Losartan started. CTM and will increase antihypertensives asneeded #PSA/opioid withdrawal: Slowly improving. Would continue to hold Methadone to avoid QT prolongation. Further treatment per primary team #UE cellultis: Abx per primary team ADDENDUM EKG from today showing QTc approximately 460s. iCal mildly low. K and PO4 being repleted -Calcium gluconate ordered for repletion -Loperamide d/c'ed due to QT prolonging properties -Would minimize Ondansetron IV use as much as possible given risk of QT prolongation Rest of the plan as per primary team. Thank you for the consult. We will continue to follow. Pleasecall with additional questions or concerns. Rashaun Benavidez MD Clinical Cardiac Electrophysiology [facility] [place] at 7:43 AM 07/05/22 * Plan of Care - Christina Garcia RN - 07/04/2022 10:15 PM CDT Goals: Clinical Goals for the Shift: Increase activity Summary: Problem: Health Behavior: Goal: Understanding of discharge needs will improve Outcome: Progressing Problem: Lack of Knowledge: Goal: Ability to develop a pain control plan will improve Outcome: Progressing Goal: Ability to identify pain intensity on a pain scale and rate it consistently will improve Outcome: Progressing Goal: Ability to notify healthcare provider of pain before it becomes unmanageable or unbearable will improve Outcome: Progressing Problem: Medication: Goal: Satisfaction with pain management regimen will improve Outcome: Progressing Problem: Sensory: Goal: Ability to identify factors that increase the pain will improve Outcome: Progressing Goal: Pain level will decrease Outcome: Progressing Problem: Activity: Goal: Ability to return to normal activity level will improve Outcome: Progressing Problem: Lack of Knowledge: Goal: Knowledge of the prescribed therapeutic regimen will improve Outcome: Progressing Problem: Coping: Goal: Ability to cope will improve Outcome: Progressing Problem: Health Behavior: Goal: Identification of resources available to assist in meeting health care needs will improve Outcome: Progressing Problem: Sensory: Goal: Pain level will decrease Outcome: Progressing * Plan of Care - Broderick Cordova RN - 07/04/2022 9:13 AM CDT Goals: Clinical Goals for the Shift: Increase activity Summary: Problem: Health Behavior: Goal: Understanding of discharge needs will improve Outcome: Progressing Problem: Lack of Knowledge: Goal: Ability to develop a pain control plan will improve Outcome: Progressing Goal: Ability to identify pain intensity on a pain scale and rate it consistently will improve Outcome: Progressing Goal: Ability to notify healthcare provider of pain before it becomes unmanageable or unbearable will improve Outcome: Progressing Problem: Medication: Goal: Satisfaction with pain management regimen will improve Outcome: Progressing Problem: Sensory: Goal: Ability to identify factors that increase the pain will improve Outcome: Progressing Goal: Pain level will decrease Outcome: Progressing Problem: Activity: Goal: Ability to return to normal activity level will improve Outcome: Progressing Problem: Lack of Knowledge: Goal: Knowledge of the prescribed therapeutic regimen will improve Outcome: Progressing Problem: Coping: Goal: Ability to cope will improve Outcome: Progressing Problem: Health Behavior: Goal: Identification of resources available to assist in meeting health care needs will improve Outcome: Progressing Problem: Sensory: Goal: Pain level will decrease Outcome: Progressing * Maria L Foote RN - 07/03/2022 9:00 PM CDT Goals: Clinical Goals for the Shift: Increase activity Summary: AAOx4. Denies pain and discomfort. Mildly hypertensive. On lidocaine drip. PICC line patent to JENNY. Tele ST at 114. Continued monitored. Problem: Health Behavior: Goal: Understanding of discharge needs will improve Outcome: Progressing Problem: Lack of Knowledge: Goal: Ability to develop a pain control plan will improve Outcome: Progressing Goal: Ability to identify pain intensity on a pain scale and rate it consistently will improve Outcome: Progressing Goal: Ability to notify healthcare provider of pain before it becomes unmanageable or unbearable will improve Outcome: Progressing Problem: Medication: Goal: Satisfaction with pain management regimen will improve Outcome: Progressing Problem: Sensory: Goal: Ability to identify factors that increase the pain will improve Outcome: Progressing Goal: Pain level will decrease Outcome: Progressing Problem: Activity: Goal: Ability to return to normal activity level will improve Outcome: Progressing Problem: Lack of Knowledge: Goal: Knowledge of the prescribed therapeutic regimen will improve Outcome: Progressing Problem: Coping: Goal: Ability to cope will improve Outcome: Progressing Problem: Health Behavior: Goal: Identification of resources available to assist in meeting health care needs will improve Outcome: Progressing Problem: Sensory: Goal: Pain level will decrease Outcome: Progressing * Bladimir Healy, RN - 07/03/2022 12:40 PM CDT Goals: Clinical Goals for the Shift: monitor VS/LABs, monitor Signs and Symptoms for withdrawls, safety and comfort Summary: pt slept on and off during shift; no episodes of vomit during shift; patient been afebrileduring shift; notified HCP of Blood pressure of 156/106 and HR 116 states its contributed to the withdrawal; lidocaine level sent to lab at 1215; Report called to Caridad DEGROOT at 1200; awaiting sign out to be done to transfer patient to [facility]; Problem: Health Behavior: Goal: Understanding of discharge needs will improve Outcome: Progressing Problem: Lack of Knowledge: Goal: Ability to develop a pain control plan will improve Outcome: Progressing Goal: Ability to identify pain intensity on a pain scale and rate it consistently will improve Outcome: Progressing Goal: Ability to notify healthcare provider of pain before it becomes unmanageable or unbearable will improve Outcome: Progressing Problem: Medication: Goal: Satisfaction with pain management regimen will improve Outcome: Progressing Problem: Sensory: Goal: Ability to identify factors that increase the pain will improve Outcome: Progressing Goal: Pain level will decrease Outcome: Progressing Problem: Activity: Goal: Ability to return to normal activity level will improve Outcome: Progressing Problem: Lack of Knowledge: Goal: Knowledge of the prescribed therapeutic regimen will improve Outcome: Progressing Problem: Coping: Goal: Ability to cope will improve Outcome: Progressing Problem: Health Behavior: Goal: Identification of resources available to assist in meeting health care needs will improve Outcome: Progressing Problem: Sensory: Goal: Pain level will decrease Outcome: Progressing * Plan of Neha Huggins RN - 07/03/2022 6:06 AM CDT Goals: Clinical Goals for the Shift: Stable VSS, labs WNL, no arrhymias, comfort and safety. Summary: Problem: Health Behavior: Goal: Understanding of discharge needs will improve Outcome: Progressing Problem: Lack of Knowledge: Goal: Ability to develop a pain control plan will improve Outcome: Progressing Goal: Ability to identify pain intensity on a pain scale and rate it consistently will improve Outcome: Progressing Goal: Ability to notify healthcare provider of pain before it becomes unmanageable or unbearable will improve Outcome: Progressing Problem: Medication: Goal: Satisfaction with pain management regimen will improve Outcome: Progressing Problem: Sensory: Goal: Ability to identify factors that increase the pain will improve Outcome: Progressing Goal: Pain level will decrease Outcome: Progressing Problem: Activity: Goal: Ability to return to normal activity level will improve Outcome: Progressing Problem: Lack of Knowledge: Goal: Knowledge of the prescribed therapeutic regimen will improve Outcome: Progressing Problem: Coping: Goal: Ability to cope will improve Outcome: Progressing Problem: Health Behavior: Goal: Identification of resources available to assist in meeting health care needs will improve Outcome: Progressing Problem: Sensory: Goal: Pain level will decrease Outcome: Progressing * Plan of Casandra - Bladimir Hills RN - 07/02/2022 2:13 PM CDT Goals: Clinical Goals for the Shift: monitor VS/LABs, free of N/V, pain control, safety and comfort Summary: pt rested off and on all during shift; patient vomited one time during shift; patient receive compazine, zofran, metoprolol, and roxicodone during shift; patient didn't want to eat any food and stated that she was comfortable; encouraged patient to turn from side to side; patient received ABX therapy during shift Problem: Health Behavior: Goal: Understanding of discharge needs will improve 07/02/2022 1413 by Bladimir Hills RN Outcome: Progressing 07/02/2022 1352 by Bladimir Hills RN Outcome: Progressing Problem: Lack of Knowledge: Goal: Ability to develop a pain control plan will improve 07/02/2022 1413 by Bladimir Hills RN Outcome: Progressing 07/02/2022 1352 by Bladimir Hills RN Outcome: Progressing Goal: Ability to identify pain intensity on a pain scale and rate it consistently will improve 07/02/2022 1413 by Bladimir Hills RN Outcome: Progressing 07/02/2022 1352 by Bladimir Hills RN Outcome: Progressing Goal: Ability to notify healthcare provider of pain before it becomes unmanageable or unbearable will improve 07/02/2022 1413 by Bladimir Hills RN Outcome: Progressing 07/02/2022 1352 by Bladimir Hills RN Outcome: Progressing Problem: Medication: Goal: Satisfaction with pain management regimen will improve 07/02/2022 1413 by Bladimir Hills RN Outcome: Progressing 07/02/2022 1352 by Bladimir Hills RN Outcome: Progressing Problem: Sensory: Goal: Ability to identify factors that increase the pain will improve 07/02/2022 1413 by Bladimir Hills RN Outcome: Progressing 07/02/2022 1352 by Bladimir Hills RN Outcome: Progressing Goal: Pain level will decrease 07/02/2022 1413 by Bladimir Hills RN Outcome: Progressing 07/02/2022 1352 by Bladimir Hills RN Outcome: Progressing Problem: Activity: Goal: Ability to return to normal activity level will improve 07/02/2022 1413 by Bladimir Hills RN Outcome: Progressing 07/02/2022 1352 by Bladimir Hills RN Outcome: Progressing Problem: Lack of Knowledge: Goal: Knowledge of the prescribed therapeutic regimen will improve 07/02/2022 1413 by Bladimir Hills RN Outcome: Progressing 07/02/2022 1352 by Bladimir Hills RN Outcome: Progressing Problem: Coping: Goal: Ability to cope will improve 07/02/2022 1413 by Bladimir Hills RN Outcome: Progressing 07/02/2022 1352 by Bladimir Hills RN Outcome: Progressing Problem: Health Behavior: Goal: Identification of resources available to assist in meeting health care needs will improve 07/02/2022 1413 by Bladimir Hills RN Outcome: Progressing 07/02/2022 1352 by Bladimir Hills RN Outcome: Progressing Problem: Sensory: Goal: Pain level will decrease 07/02/2022 1413 by Bladimir Hills RN Outcome: Progressing 07/02/2022 1352 by Bladimir Hills RN Outcome: Progressing * Plan of Care - Neha Sanches RN - 07/02/2022 1:58 AM CDT Goals: Clinical Goals for the Shift: Stable VSS, labs WNL, no arrhymias, comfort and safety. Summary: Problem: Health Behavior: Goal: Understanding of discharge needs will improve Outcome: Progressing Problem: Lack of Knowledge: Goal: Ability to develop a pain control plan will improve Outcome: Progressing Goal: Ability to identify pain intensity on a pain scale and rate it consistently will improve Outcome: Progressing Goal: Ability to notify healthcare provider of pain before it becomes unmanageable or unbearable will improve Outcome: Progressing Problem: Sensory: Goal: Ability to identify factors that increase the pain will improve Outcome: Progressing Goal: Pain level will decrease Outcome: Progressing Problem: Activity: Goal: Ability to return to normal activity level will improve Outcome: Progressing Problem: Lack of Knowledge: Goal: Knowledge of the prescribed therapeutic regimen will improve Outcome: Progressing Problem: Coping: Goal: Ability to cope will improve Outcome: Progressing Problem: Health Behavior: Goal: Identification of resources available to assist in meeting health care needs will improve Outcome: Progressing Problem: Sensory: Goal: Pain level will decrease Outcome: Progressing Problem: Medication: Goal: Satisfaction with pain management regimen will improve Outcome: Not Progressing documented in this encounter Plan of Treatment Scheduled Orders Name Type Priority Associated Diagnoses Orde r Schedule Urinalysis reflex to microscopic and culture Urine, clean voided Microbiology Routine Once for 1 Occurrences starting 07/05/2022 until 07/05/2022 documented as of this encounter Procedures Procedure Name Priority Date/Time Associated Diagnosis Comments POCT GLUCOSE DEVICE Routine 07/08/2022 1 1:10 AM CDT POCT GLUCOSE DEVICE Routine 07/08/2022 7 :38 AM CDT ECG 12-LEAD Routine 07/08/2022 7:13 AM CDT EGFR Routine 07/08/2022 7:12 AM CDT CALCIUM, IONIZED Routine 07/08/2022 7:12 AM CDT CBC WITHOUT DIFFERENTIAL Routine 07/08/2022 7:12 AM CDT PHOSPHORUS Routine 07/08/2022 7:12 AM CDT MAGNESIUM Routine 07/08/2022 7:12 AM CDT BASIC METABOLIC PANEL Routine 07/08/2022 7:12 AM CDT POCT GLUCOSE DEVICE Routine 07/07/2022 8 :[address] HUMERUS LEFT W CONTRAST IP Routine 07/07/2022 8:12 PM CDT POTASSIUM LEVEL Routine 07/07/2022 12:10 PM CDT ECG 12-LEAD Routine 07/07/2022 7:16 AM CDT EGFR Routine 07/07/2022 5:08 AM CDT CALCIUM, IONIZED Routine 07/07/2022 5:08 AM CDT CBC WITHOUT DIFFERENTIAL Routine 07/07/2022 5:08 AM CDT PHOSPHORUS Routine 07/07/2022 5:08 AM CDT MAGNESIUM Routine 07/07/2022 5:08 AM CDT BASIC METABOLIC PANEL Routine 07/07/2022 5:08 AM CDT POCT GLUCOSE DEVICE Routine 07/06/2022 8 :09 PM CDT POTASSIUM LEVEL Routine 07/06/2022 5:15 PM CDT ECG 12-LEAD Routine 07/06/2022 7:06 AM CDT EGFR Routine 07/06/2022 6:45 AM CDT PHOSPHORUS Routine 07/06/2022 6:45 AM CDT MAGNESIUM Routine 07/06/2022 6:45 AM CDT BASIC METABOLIC PANEL Routine 07/06/2022 6:45 AM CDT CBC WITHOUT DIFFERENTIAL Routine 07/06/2022 5:17 AM CDT CALCIUM, IONIZED Routine 07/06/2022 5:10 AM CDT POCT GLUCOSE DEVICE Routine 07/05/2022 7 :40 PM CDT HC ANTIBODY SCREEN RBC Timed 07/05/2022 5:55 PM CDT XR CHEST 1 VIEW ED Urgent/IP Urgent 07/05/2022 3:23 PM CDT LIDOCAINE LEVEL Timed 07/05/2022 3:00 PM CDT EGFR Routine 07/05/2022 10:15 AM CDT CALCIUM, IONIZED Routine 07/05/2022 10:1 5 AM CDT CBC WITHOUT DIFFERENTIAL Routine 07/05/2022 10:15 AM CDT PHOSPHORUS Routine 07/05/2022 10:15 AM CDT MAGNESIUM Routine 07/05/2022 10:15 AM CDT BASIC METABOLIC PANEL Routine 07/05/2022 10:15 AM CDT ECG 12-LEAD Routine 07/05/2022 8:45 AM CDT POCT GLUCOSE DEVICE Routine 07/05/2022 7 :56 AM CDT LIDOCAINE LEVEL Timed 07/04/2022 8:39 PM CDT POCT GLUCOSE DEVICE Routine 07/04/2022 8 :25 PM CDT POCT GLUCOSE DEVICE Routine 07/04/2022 4 :52 PM CDT ECG 12-LEAD Routine 07/04/2022 12:08 PM CDT POCT GLUCOSE DEVICE Routine 07/04/2022 1 1:36 AM CDT EGFR Routine 07/04/2022 8:35 AM CDT CALCIUM, IONIZED Routine 07/04/2022 8:35 AM CDT CBC WITHOUT DIFFERENTIAL Routine 07/04/2022 8:35 AM CDT PHOSPHORUS Routine 07/04/2022 8:35 AM CDT MAGNESIUM Routine 07/04/2022 8:35 AM CDT VANCOMYCIN LEVEL TROUGH Timed 07/04/2022 8:35 AM CDT BASIC METABOLIC PANEL Routine 07/04/2022 8:35 AM CDT POCT GLUCOSE DEVICE Routine 07/04/2022 7 :40 AM CDT POCT GLUCOSE DEVICE Routine 07/03/2022 1 0:15 PM CDT LIDOCAINE LEVEL Timed 07/03/2022 12:19 PM CDT CRITICAL CARE Routine 07/03/2022 9:40 AM CDT Ventricular tachycardia (HCC) EGFR Routine 07/03/2022 4:47 AM CDT CALCIUM, IONIZED Routine 07/03/2022 4:47 AM CDT CBC WITHOUT DIFFERENTIAL Routine 07/03/2022 4:47 AM CDT PHOSPHORUS Routine 07/03/2022 4:47 AM CDT MAGNESIUM Routine 07/03/2022 4:47 AM CDT BASIC METABOLIC PANEL Routine 07/03/2022 4:47 AM CDT ECG 12-LEAD STAT 07/02/2022 9:59 PM CDT POCT GLUCOSE DEVICE Routine 07/02/2022 8 :26 PM CDT CRITICAL CARE Routine 07/02/2022 7:33 PM CDT Ventricular tachycardia (HCC) POCT GLUCOSE DEVICE Routine 07/02/2022 5 :24 PM CDT LIDOCAINE LEVEL Timed 07/02/2022 5:21 PM CDT CRITICAL CARE Routine 07/02/2022 4:53 PM CDT Ventricular tachycardia (HCC) ECG 12-LEAD STAT 07/02/2022 11:16 AM CDT TRANSTHORACIC ECHO (TTE) COMPLETE W DOPPLER/CF WO CONTRAST Routine 07/02/2022 10:00 AM CDT US VEIN DUPLEX UPPER EXTREMITY BILATERAL COMPLETE ED Urgent/IP Urgent 07/02/2022 9:00 AM CDT TROPONIN T HIGH-SENSITIVITY STAT 07/02/2022 7:34 AM CDT EGFR STAT 07/02/2022 7:34 AM CDT CRP (ACUTE PHASE) STAT 07/02/2022 7:3 4 AM CDT PHOSPHORUS STAT 07/02/2022 7:34 AM CDT MAGNESIUM STAT 07/02/2022 7:34 AM CDT BASIC METABOLIC PANEL STAT 07/02/2022 7:34 AM CDT CALCIUM, IONIZED Routine 07/02/2022 6:00 AM CDT HEPATITIS PANEL, ACUTE Routine 07/02/2022 6:00 AM CDT CBC WITHOUT DIFFERENTIAL Routine 07/02/2022 6:00 AM CDT PNEUMONIA PCR Routine 07/02/2022 2:12 AM CDT PNEUMONIA PCR WITH AEROBIC CULTURE AND GRAM STAIN Routine 07/02/2022 2:12 AM CDT INFLUENZA A/B, RSV, AND COVID-19 PCR Routine 07/02/2022 2:12 AM CDT LACTATE STAT 07/02/2022 2:12 AM CDT BLOOD CULTURE STAT 07/02/2022 1:31 AM CDT POTASSIUM, WHOLE BLOOD STAT 07/01/2022 11:05 PM CDT HC VENIPUNCTURE Timed 07/01/2022 11:05 PM CDT APTT STAT 07/01/2022 9:22 PM CDT PROTIME-INR STAT 07/01/2022 9:22 PM CDT CRITICAL CARE Routine 07/01/2022 9:11 PM CDT FENTANYL CONFIRMATION, MS URINE STAT 07/01/2022 8:56 PM CDT DRUGS OF ABUSE SCREEN, URINE WITH REFLEX CONFIRMATION STAT 07/01/2022 8:56 PM CDT OPIATES CONFIRMATION MS, URINE STAT 07/01/2022 8:56 PM CDT URINALYSIS AND REFLEX TO MICROSCOPIC STAT 07/01/2022 8:56 PM CDT METHADONE, URINE, CONFIRMATION STAT 07/01/2022 8:56 PM CDT LIDOCAINE LEVEL STAT 07/01/2022 8:56 PM CDT URINALYSIS, MICROSCOPIC ONLY STAT 07/01/2022 8:56 PM CDT XR CHEST 1 VIEW ED Urgent/IP Urgent 07/01/2022 8:53 PM CDT ECG 12-LEAD STAT 07/01/2022 8:47 PM CDT TROPONIN T HIGH-SENSITIVITY Routine 07/01/2022 8:42 PM CDT COVID-19 CORONAVIRUS RNA Routine 07/01/2022 8:42 PM CDT EGFR STAT 07/01/2022 8:42 PM CDT B CHECK SAMPLE STAT 07/01/2022 8:42 PM CDT CALCIUM, IONIZED STAT 07/01/2022 8:42 PM CDT INFECTION PREVENTION MRSA ONLY (STAPHYLOCOCCUS AUREUS) PCR Routine 07/01/2022 8:42 PM CDT CBC WITHOUT DIFFERENTIAL STAT 07/01/2022 8:42 PM CDT HCG, BLOOD, QUANTITATIVE STAT 07/01/2022 8:42 PM CDT PHOSPHORUS STAT 07/01/2022 8:42 PM CDT MAGNESIUM STAT 07/01/2022 8:42 PM CDT CREATINE KINASE (CK), TOTAL STAT 07/01/2022 8:42 PM CDT COMPREHENSIVE METABOLIC PANEL STAT 07/01/2022 8:42 PM CDT POCT GLUCOSE DEVICE Routine 07/01/2022 8 :16 PM CDT documented in this encounter Results * POCT glucose (07/08/2022 11:10 AM CDT) Glucose, POC 143 70 - 199 mg/dL [facility] Blood 07/08/2022 11:1 0 AM CDT 07/08/2022 11:10 AM CDT Naomi Foote MD LAB POCT ORDERABLES - DEVICE F inal Result Performing Organization Address City/[facility]/ZIP Co de Phone Number LAURA KRYSTA [address] [employer] [place] [address] * POCT glucose (07/08/2022 7:38 AM CDT) Glucose, POC 124 70 - 199 mg/dL [facility] Blood 07/08/2022 7:38 AM CDT 07/08/2022 7:38 AM CDT Naomi Foote MD LAB POCT ORDERABLES - DEVICE F inal Result Performing Organization Address City/[facility]/ZIP Co de Phone Number LAURA [address] Department [place] [employer] [place] [address] * ECG 12 lead (07/08/2022 7:13 AM CDT) 07/08/2022 7:1 3 AM CDT Narrative [facility] - 07/08/2022 8:32 AM CDT Vent Rate: 78 bpm RR Interval: 765 msec WI Interval: 168 msec QRS Duration: 92 msec QT Interval: 410 msec QTC Interval: 443 msec P-R-T [place]: 28 - 10 - 29 degrees SINUS RHYTHM NONSPECIFIC T-WAVE ABNORMALITY BORDERLINE ECG INTERPRETATION BASED ON A DEFAULT AGE OF 40 YEARS Electronically Signed By: Dr. Romelia Kruse [facility] Rashaun Benavidez MD ECG ORDERABLES Final Result [facility] * eGFR (07/08/2022 7:12 AM CDT) eGFR 80 mL/min/1. 73 m2 LAURA CHAPARRO Comment: Interpretive Data Reference [...] of Race in Diagnosing Kidney Disease, JASN 202). The CKD-EPI equation should not be used for patients with unstable renal function and has not been validated in children and those over 70. Current interpretive data was last reviewed 2021. Blood 07/08/2022 7:12 AM CDT 07/08/2022 7:55 AM CDT us Irakli Shengelia PA LAB BLOOD ORDERABLES Final R esult Performing Organization Address [facility] de Phone Number LAURA CHAPARRO [address] [employer] [place] [address] * (ABNORMAL) Calcium, ionized (07/08/2022 7:12 AM CDT) Ca, ionized, bld, calc 4.53(L) 4.60 - 5.20 mg/dL [facility] Ca, ionized, bld 4.70 4.60 - 5.20 mg/dL [facility] Blood 07/08/2022 7:12 AM CDT 07/08/2022 7:27 AM CDT us David Last PA LAB BLOOD ORDERABLES Final R esult Performing Organization Address [facility] de Phone Number LAURA CHAPARRO [address] [employer] [place] [address] * Phosphorus (07/08/2022 7:12 AM CDT) Phosphorus, pl 3.7 2.3 - 4.5 mg/dL [facility] Blood 07/08/2022 7:12 AM CDT 07/08/2022 7:55 AM CDT us David Robertschelo PA LAB BLOOD ORDERABLES Final R esult Performing Organization Address [facility] de Phone Number DONNATRAVIS CHAPARRO [address] [employer] [place] [address] * Magnesium (07/08/2022 7:12 AM CDT) Magnesium 2.0 1.4 - 2.5 mg/dL [facility] Blood 07/08/2022 7:12 AM CDT 07/08/2022 7:55 AM CDT us David Last PA LAB BLOOD ORDERABLES Final R esult Performing Organization Address [facility] Co de Phone Number LAURA CHAPARRO [address] Department [place] [address] * (ABNORMAL) CBC without differential (07/08/2022 7:12 AM CDT) Pathologist [facility] WBC 8.6 3.8 - 9.9 K/cumm [facility] Hgb 11.1(L) 11.9 - 15.5 g/dL [facility] Hct 34.9(L) 35.6 - 45.5 % [facility] Plt 305 150 - 400 K/cumm [facility] MPV 10.3 9.1 - 12.3 fL [facility] RBC 3.94 3.90 - 5.20 M/cumm [facility] MCV 88.6 81.3 - 96.4 fL [facility] MCH 28.2 27.1 - 33.3 pg [facility] MCHC 31.8(L) 32.3 - 35.7 g/dL [facility] RDW CV 13.5 11.1 - 14.9 % [facility] RDW SD 43.0 35.7 - 48.1 fL [facility] NRBC abs 0.00 0.00 - 0.01 K/cumm [facility] Blood 07/08/2022 7:12 AM CDT 07/08/2022 7:54 AM CDT David WATSON LAB BLOOD ORDERABLES Final R esult LAURA CHAPARRO [address] Department [place] [address] * Basic metabolic panel (07/08/2022 7:12 AM CDT) Pathologist [facility] Sodium 140 135 - 145 mmol/L [facility] Potassium, pl 4.0 3.3 - 4.9 mmol/L [facility] Chloride 103 97 - 110 mmol/L [facility] CO2 29 22 - 32 mmol/L [facility] Anion gap 8 2 - 15 mmol/L [facility] BUN 8 8 - 25 mg/dL [facility] Creatinine 0.92 0.60 - 1.10 mg/dL [facility] Glucose 114 70 - 199 mg/dL [facility] Comment: Interpretive Data Fasting glucose >/= 126 [...] 2022. Calcium 8.8 8.5 - 10.3 mg/dL LAURA Blood 07/08/2022 7:12 AM CDT 07/08/2022 7:55 AM CDT David WATSON LAB BLOOD ORDERABLES Final R esult Performing Organization Address [facility] Co de Phone Number LAURA [address] Department of [employer] [address] * POCT glucose (07/07/2022 8:36 PM CDT) Glucose, POC 126 70 - 199 mg/dL LAURA Blood 07/07/2022 8:36 PM CDT 07/07/2022 8:36 PM CDT Naomi Foote MD LAB POCT ORDERABLES - DEVICE F inal Result Performing Organization Address City/[facility] Co de Phone Number LAURA [address] Department [place] [employer] [place] [address] * CT Humerus Left W Contrast (07/07/2022 8:12 PM CDT) Anatomical Region Laterality Modality Upper Extremities Left Computed Tomog julio 07/07/2022 7:57 PM CDT Impressions 07/08/2022 10:07 AM CDT Left upper arm and shoulder cellulitis. No abscess. Electronically signed by: Chance Hidalgo M.D. Narrative 07/08/2022 10:07 AM CDT EXAMINATION: CT HUMERUS LEFT W CONTRAST DATE: [...] the left shoulder and lateral upper arm. ??There is no abscess or abnormal fluid collection. ??The left subclavian, brachial and axillary arteries are grossly normal. Procedure Note Chance Hidalgo MD - 07/08/2022 EXAMINATION: CT HUMERUS LEFT W CONTRAST DATE: [...] subclavian, brachial and axillary arteries are grossly normal. IMPRESSION: Left upper arm and shoulder cellulitis. No abscess. Electronically signed by: Chance Hidalgo M.D. Naomi Foote MD IMG CT PROCEDURES Final Result * Potassium (07/07/2022 12:10 PM CDT) [facility] Potassium, pl 3.6 3.3 - 4.9 mmol/L LAURA CHAPARRO Blood 07/07/2022 12:1 0 PM CDT 07/07/2022 12:24 PM CDT Rashaun Benaivdez MD LAB BLOOD ORDERABLES F inal Result LAURA CHAPARRO [address] Department [place] [address] * ECG 12 lead (07/07/2022 7:16 AM CDT) 07/07/2022 7:16 AM CDT Narrative [facility] - 07/07/2022 9:30 AM CDT Vent Rate: 69 bpm RR Interval: 860 msec WI Interval: 154 msec QRS Duration: 95 msec QT Interval: 446 msec QTC Interval: 466 msec P-R-T [place]: 19 - 13 - -9 degrees SINUS RHYTHM NORMAL ECG Electronically Signed By: Dr. Romelia Kruse [facility] Rashaun Benavidez MD ECG ORDERABLES Final Result [facility] * eGFR (07/07/2022 5:08 AM CDT) eGFR 82 mL/min/1. 73 m2 LAURA CHAPARRO Comment: Interpretive Data Reference [...] of Race in Diagnosing Kidney Disease, JASN 202). The CKD-EPI equation should not be used for patients with unstable renal function and has not been validated in children and those over 70. Current interpretive data was last reviewed 2021. Blood 07/07/2022 5:08 AM CDT 07/07/2022 5:22 AM CDT us David WATSON LAB BLOOD ORDERABLES Final R esult LAURA CHAPARRO [address] [employer] [address] * (ABNORMAL) Calcium, ionized (07/07/2022 5:08 AM CDT) Ca, ionized, bld 4.54(L) 4.60 - 5.20 mg/dL [facility] Ca, ionized, bld, calc 4.39(L) 4.60 - 5.20 mg/dL [facility] Blood 07/07/2022 5:08 AM CDT 07/07/2022 5:19 AM CDT us David WATSON LAB BLOOD ORDERABLES Final R esult Performing Organization Address [facility]/ZIP Co de Phone Number DONNATRAVIS CHAPARRO [address] Department [employer] [place] [address] * Phosphorus (07/07/2022 5:08 AM CDT) Phosphorus, pl 4.2 2.3 - 4.5 mg/dL [facility] Blood 07/07/2022 5:08 AM CDT 07/07/2022 5:19 AM CDT us David WATSON LAB BLOOD ORDERABLES Final R esult Performing Organization Address City/[facility]/ZIP Co de Phone Number LAURA CHAPARRO [address] [employer] [place] [address] * Magnesium (07/07/2022 5:08 AM CDT) Magnesium 2.0 1.4 - 2.5 mg/dL [facility] Blood 07/07/2022 5:08 AM CDT 07/07/2022 5:19 AM CDT us David Last PA LAB BLOOD ORDERABLES Final R esult Performing Organization Address City/[facility] Co de Phone Number LAURA CHAPARRO [address] Department of Laboratories [place], [place] [id number] * (ABNORMAL) CBC without differential (07/07/2022 5:08 AM CDT) WBC 12.4(H) 3.8 - 9.9 K/cumm [facility] Hgb 10.3(L) 11.9 - 15.5 g/dL [facility] Hct 31.5(L) 35.6 - 45.5 % [facility] Plt 408(H) 150 - 400 K/cumm [facility] MPV 10.7 9.1 - 12.3 fL [facility] RBC 3.57(L) 3.90 - 5.20 M/cumm [facility] MCV 88.2 81.3 - 96.4 fL [facility] MCH 28.9 27.1 - 33.3 pg [facility] MCHC 32.7 32.3 - 35.7 g/dL [facility] RDW CV 13.8 11.1 - 14.9 % [facility] RDW SD 43.1 35.7 - 48.1 fL [facility] NRBC abs 0.00 0.00 - 0.01 K/cumm [facility] Blood 07/07/2022 5:08 AM CDT 07/07/2022 5:19 AM CDT David WATSON LAB BLOOD ORDERABLES Final R esult Performing Organization Address [facility]/ZIP Co de Phone Number LAURA CHAPARRO [address] Department [place] [address] * (ABNORMAL) Basic metabolic panel (07/07/2022 5:08 AM CDT) Sodium 138 135 - 145 mmol/L [facility] Potassium, pl 6.3(C) 3.3 - 4.9 mmol/L [facility] Comment:Hemolysis present. R esults may be affected. Critical Result called to and read back by Govind Mccann, DATE: 2022-07-07 05:52:57 BY: Radha Jones Chloride 105 97 - 110 mmol/L [facility] CO2 29 22 - 32 mmol/L [facility] Anion gap 4 2 - 15 mmol/L [facility] BUN 11 8 - 25 mg/dL [facility] Creatinine 0.90 0.60 - 1.10 mg/dL [facility] Glucose 111 70 - 199 mg/dL [facility] Comment: Interpretive Data Fasting glucose >/= 126 [...] interpretive data was last revised 2022. Calcium 8.4(L) 8.5 - 10.3 mg/dL [facility] Blood 07/07/2022 5:08 AM CDT 07/07/2022 5:19 AM CDT David WATSON LAB BLOOD ORDERABLES Final R esult Performing Organization Address City/[facility]/ZIP Co de Phone Number [facility] [address] [employer] [place] [address] * POCT glucose (07/06/2022 8:09 PM CDT) Glucose, POC 148 70 - 199 mg/dL [facility] Blood 07/06/2022 8:09 PM CDT 07/06/2022 8:09 PM CDT Alvin Hilario MD LAB POCT ORDERABLES - DEVIC E Final Result Performing Organization Address City/[facility]/ZIP Co de Phone Number [facility] [address] Department [place] [address] * Potassium (07/06/2022 5:15 PM CDT) Potassium, pl 3.8 3.3 - 4.9 mmol/L [facility] Blood 07/06/2022 5:15 PM CDT 07/06/2022 5:22 PM CDT Alvin Hilario MD LAB BLOOD ORDERABLES Final Result Performing Organization Address [facility] de Phone Number [facility] [address] Department [place] [address] * ECG 12 lead (07/06/2022 7:06 AM CDT) 07/06/2022 7:06 AM CDT Narrative [facility] - 07/06/2022 7:41 AM CDT Vent Rate: 66 bpm RR Interval: 896 msec WI Interval: 150 msec QRS Duration: 97 msec QT Interval: 428 msec QTC Interval: 442 msec P-R-T [place]: 24 - 9 - -12 degrees SINUS RHYTHM WITH SINUS ARRHYTHMIA MODERATE T-WAVE ABNORMALITY, CONSIDER ANTEROLATERAL ISCHEMIA ??[-0.1+ mV T-WAVE IN V3-V6] ABNORMAL ECG Compared to prior EKG, heart rate has decreased Electronically Signed By: Néstor Norris MD Rashaun Benavidez MD ECG ORDERABLES Final Result Performing Organization Address [facility] de Phone Number [facility] [employer] [facility] * eGFR (07/06/2022 6:45 AM CDT) eGFR 82 mL/min/1. 73 m2 [facility] Comment: Interpretive Data Reference Interval Normal ?>/= [...] interpretive data was last reviewed 2021. Blood 07/06/2022 6:45 AM CDT 07/06/2022 6:59 AM CDT Alvin Hilario MD LAB BLOOD ORDERABLES Final Result [facility] [address] Department [place] [address] * (ABNORMAL) Basic metabolic panel (07/06/2022 6:45 AM CDT) Sodium 137 135 - 145 mmol/L [facility] Potassium, pl 5.2(H) 3.3 - 4.9 mmol/L [facility] Comment:Hemolysis present. R esults may be affected. Chloride 102 97 - 110 mmol/L [facility] CO2 28 22 - 32 mmol/L [facility] Anion gap 7 2 - 15 mmol/L [facility] BUN 10 8 - 25 mg/dL [facility] Creatinine 0.90 0.60 - 1.10 mg/dL [facility] Glucose 161 70 - 199 mg/dL [facility] Comment: Interpretive Data Fasting glucose >/= 126 [...] interpretive data was last revised 2022. Calcium 8.1(L) 8.5 - 10.3 mg/dL [facility] Blood 07/06/2022 6:45 AM CDT 07/06/2022 6:57 AM CDT Alvin Hilario MD LAB BLOOD ORDERABLES Final Result Performing Organization Address City/[facility] Co de Phone Number LAURA [address] Department [employer] [place], [place] [id number] * Magnesium (07/06/2022 6:45 AM CDT) Pathologist [facility] Magnesium 2.0 1.4 - 2.5 mg/dL [facility] Blood 07/06/2022 6:45 AM CDT 07/06/2022 6:57 AM CDT Alvin Hilario MD LAB BLOOD ORDERABLES Final Result Performing Organization Address [facility] de Phone Number [facility] [address] [address] [employer] [address] * Phosphorus (07/06/2022 6:45 AM CDT) Pathologist [facility] Phosphorus, pl 3.5 2.3 - 4.5 mg/dL [facility] Blood 07/06/2022 6:45 AM CDT 07/06/2022 6:57 AM CDT Alvin Hilario MD LAB BLOOD ORDERABLES Final Result Performing Organization Address [facility] de Phone Number [facility] [address] [address] [employer] [place] [address] * (ABNORMAL) CBC without differential (07/06/2022 5:17 AM CDT) WBC 10.8(H) 3.8 - 9.9 K/cumm [facility] Hgb 11.4(L) 11.9 - 15.5 g/dL [facility] Hct 34.9(L) 35.6 - 45.5 % [facility] Plt 223 150 - 400 K/cumm [facility] MPV 11.0 9.1 - 12.3 fL [facility] RBC 3.98 3.90 - 5.20 M/cumm [facility] MCV 87.7 81.3 - 96.4 fL [facility] MCH 28.6 27.1 - 33.3 pg [facility] MCHC 32.7 32.3 - 35.7 g/dL [facility] RDW CV 13.4 11.1 - 14.9 % [facility] RDW SD 41.4 35.7 - 48.[address] [facility] CH NRBC abs 0.00 0.00 - 0.01 K/cumm [facility] CH Blood 07/06/2022 5:17 AM CDT 07/06/2022 5:26 AM CDT David WATSON LAB BLOOD ORDERABLES Final R esult Performing Organization Address [facility] Co de Phone Number [facility] [address] [employer] [place] [address] * (ABNORMAL) Calcium, ionized (07/06/2022 5:10 AM CDT) Pathologist [facility] Ca, ionized, bld 4.42(L) 4.60 - 5.20 mg/dL [facility] Ca, ionized, bld, calc 4.29(L) 4.60 - 5.20 mg/dL [facility] Blood 07/06/2022 5:10 AM CDT 07/06/2022 5:23 AM CDT David WATSON LAB BLOOD ORDERABLES Final R esult Performing Organization Address City/[facility] Co de Phone Number [facility] [address] [address] Department [employer] [place] [address] * POCT glucose (07/05/2022 7:40 PM CDT) Glucose, POC 187 70 - 199 mg/dL [facility] Blood 07/05/2022 7:40 PM CDT 07/05/2022 7:40 PM CDT Alvin Hilario MD LAB POCT ORDERABLES - DEVIC E Final Result Performing Organization Address [facility] Co de Phone Number LAURA CHAPARRO [address] Department [place] [address] * Type and screen (07/05/2022 5:55 PM CDT) Mercedes, indirect Negative [facility] ABO Rh O Positive [facility] Blood 07/05/2022 5:55 PM CDT 07/05/2022 6:05 PM CDT Narrative [facility] - 07/05/2022 6:58 PM CDT Has the patient had Daratumumab or Isatuximab in the past 6 months?->Unknown Alvin Hilario MD LAB BLOOD BANK TEST ORDERAB LES Final Result Performing Organization Address [facility] de Phone Number LAURA CHAPARRO [address] Department [place] [address] * XR Chest 1 View (07/05/2022 3:23 PM CDT) Anatomical Region Laterality Modality Body, Chest N/A Computed Radiogr aphy 07/05/2022 3:28 PM CDT Impressions 07/05/2022 3:28 PM CDT Borderline cardiomegaly. Electronically signed by: Cuauhtemoc Leo M.D. Narrative 07/05/2022 3:28 PM CDT EXAMINATION: XR CHEST 1 VIEW HISTORY: The patient is a 41-year-old female who presents with elevated white cell count. ??Comparison made with the previous study dated 07/01/2022. TECHNIQUE: AP portable view of the chest. FINDINGS: Borderline cardiomegaly with aortic atherosclerosis. ??No failure. ??No active infiltrate. ??The tip of right PICC line is in the superior vena cava. Procedure Note Cuauhtemoc Leo MD - 07/05/2022 EXAMINATION: XR CHEST 1 VIEW HISTORY: The patient is a 41-year-old female who presents with elevated white cell count. Comparison made with the previous study dated 07/01/2022. TECHNIQUE: AP portable view of the chest. FINDINGS: Borderline cardiomegaly with aortic atherosclerosis. No failure. No active infiltrate. The tip of right PICC line is in the superior vena cava. IMPRESSION: Borderline cardiomegaly. Electronically signed by: Cuauhtemoc Leo M.D. us Alvin Hilario MD IMG XR PROCEDURES Final Res ult * (ABNORMAL) Lidocaine level (07/05/2022 3:00 PM CDT) Pathologist [facility] Lidocaine (Xylocaine) 11.8(C) 1.5 - 5.0 mcg/mL LAURA Comment: Repeated on Dilution Testing performed by: [facility], [address] [place]., [address] Blood 07/05/2022 3:00 PM CDT 07/05/2022 5:39 PM CDT Rashaun Benavidez MD LAB BLOOD ORDERABLES F inal Result [facility] [address] [facility] Department [place] [address] * eGFR (07/05/2022 10:15 AM CDT) Pathologist [facility] eGFR 78 mL/min/1. 73 m2 LAURA Comment: Interpretive Data Reference Interval Normal ?>/= [...] interpretive data was last reviewed 2021. Blood 07/05/2022 10:1 5 AM CDT 07/05/2022 10:32 AM CDT David WATSON LAB BLOOD ORDERABLES Final R esult Performing Organization Address [facility] Co de Phone Number [facility] [address] [employer] [place] [address] * (ABNORMAL) Calcium, ionized (07/05/2022 10:15 AM CDT) Ca, ionized, bld, calc 4.39(L) 4.60 - 5.20 mg/dL [facility] Ca, ionized, bld 4.37(L) 4.60 - 5.20 mg/dL [facility] Blood 07/05/2022 10:1 5 AM CDT 07/05/2022 10:29 AM CDT David WATSON LAB BLOOD ORDERABLES Final R esult Performing Organization Address City/[facility] Co de Phone Number [facility] [address] [address] Department [employer] [place], [place] [id number] * (ABNORMAL) Phosphorus (07/05/2022 10:15 AM CDT) Phosphorus, pl 1.9(L) 2.3 - 4.5 mg/dL [facility] Blood 07/05/2022 10:1 5 AM CDT 07/05/2022 10:27 AM CDT David Last [place] LAB BLOOD ORDERABLES Final R esult Performing Organization Address City/[facility] Co de Phone Number LAURA CHAPARRO [address] [employer] [address] * Magnesium (07/05/2022 10:15 AM CDT) Pathologist [facility] Magnesium 2.0 1.4 - 2.5 mg/dL [facility] Blood 07/05/2022 10:1 5 AM CDT 07/05/2022 10:27 AM CDT [facility] Armandochelo [place] LAB BLOOD ORDERABLES Final R esult Performing Organization Address [facility] de Phone Number LAURA CHAPARRO [address] [employer] [place] [address] * (ABNORMAL) CBC without differential (07/05/2022 10:15 AM CDT) Pathologist [facility] WBC 13.2(H) 3.8 - 9.9 K/cumm [facility] Hgb 11.9 11.9 - 15.5 g/dL [facility] Hct 36.7 35.6 - 45.5 % [facility] Plt 235 150 - 400 K/cumm [facility] MPV 10.7 9.1 - 12.3 fL [facility] RBC 4.25 3.90 - 5.20 M/cumm [facility] MCV 86.4 81.3 - 96.4 fL [facility] MCH 28.0 27.1 - 33.3 pg [facility] MCHC 32.4 32.3 - 35.7 g/dL [facility] RDW CV 13.0 11.1 - 14.9 % [facility] RDW SD 40.2 35.7 - 48.1 fL [facility] NRBC abs 0.00 0.00 - 0.01 K/cumm [facility] Blood 07/05/2022 10:1 5 AM CDT 07/05/2022 10:27 AM CDT David WATSON LAB BLOOD ORDERABLES Final R esult Performing Organization Address City/[facility]/ZIP Co de Phone Number LAURA [address] [address] Department [place] [employer] [address] * (ABNORMAL) Basic metabolic panel (07/05/2022 10:15 AM CDT) Pathologist [facility] Sodium 138 135 - 145 mmol/L [facility] Potassium, pl 3.4 3.3 - 4.9 mmol/L [facility] Chloride 101 97 - 110 mmol/L [facility] CO2 28 22 - 32 mmol/L [facility] Anion gap 9 2 - 15 mmol/L [facility] BUN 6(L) 8 - 25 mg/dL [facility] Creatinine 0.94 0.60 - 1.10 mg/dL [facility] Glucose 190 70 - 199 mg/dL [facility] Comment: Interpretive Data Fasting glucose >/= 126 [...] interpretive data was last revised 2022. Calcium 8.4(L) 8.5 - 10.3 mg/dL [facility] Blood 07/05/2022 10:1 5 AM CDT 07/05/2022 10:27 AM CDT David WATSON LAB BLOOD ORDERABLES Final R esult Performing Organization Address [facility] Co de Phone Number LAURA CHAPARRO [phone] [employer] [place] [address] * ECG 12 lead (07/05/2022 8:45 AM CDT) 07/05/2022 8:45 AM CDT Narrative [facility] - 07/05/2022 8:56 AM CDT Vent Rate: 112 bpm RR Interval: 533 msec [place] Interval: 154 msec QRS Duration: 93 msec QT Interval: 365 msec QTC Interval: 431 msec P-R-T [place]: 38 - -3 - 10 degrees SINUS TACHYCARDIA MODERATE T-WAVE ABNORMALITY, CONSIDER ANTERIOR ISCHEMIA ??[-0.1+ mV T-WAVE IN V3/V4] ABNORMAL ECG No significant change since previous tracing Electronically Signed By: Ruben Piedra MD, [facility] us Rashaun Benavidez MD ECG ORDERABLES Final Result Performing Organization Address [facility] Co de Phone Number [facility] * POCT glucose (07/05/2022 7:56 AM CDT) Glucose, POC 133 70 - 199 mg/dL [facility] Blood 07/05/2022 7:56 AM CDT 07/05/2022 7:56 AM CDT Alvin Hilario MD LAB POCT ORDERABLES - DEVIC E Final Result Performing Organization Address [facility] de Phone Number [facility] [address] Department of Laboratories [place], [place] [id number] * (ABNORMAL) Lidocaine level (07/04/2022 8:39 PM CDT) Lidocaine (Xylocaine) 5.7(H) 1.5 - 5.0 mcg/mL [facility] Comment:Testing performed by : [facility], [address], [place]., [address] Blood 07/04/2022 8:39 PM CDT 07/05/2022 3:34 AM CDT us Kylie Nova MD LAB BLOOD ORDERABLES Fi nal Result Performing Organization Address [facility] Co de Phone Number LAURA CHAPARRO [address] [address] [employer] [place] [address] * POCT glucose (07/04/2022 8:25 PM CDT) Glucose, POC 161 70 - 199 mg/dL [facility] Blood 07/04/2022 8:25 PM CDT 07/04/2022 8:25 PM CDT Alvin Hilario MD LAB POCT ORDERABLES - DEVIC E Final Result Performing Organization Address [facility] Co de Phone Number LAURA CHAPARRO [address] [address] [employer] [place] [address] * POCT glucose (07/04/2022 4:52 PM CDT) Glucose, POC 171 70 - 199 mg/dL [facility] Blood 07/04/2022 4:52 PM CDT 07/04/2022 4:52 PM CDT Alvin Hilario MD LAB POCT ORDERABLES - DEVIC E Final Result Performing Organization Address [facility] de Phone Number LAURA CHAPARRO [address] [place] [address] * ECG 12 lead (07/04/2022 12:08 PM CDT) 07/04/2022 12:0 8 PM CDT Narrative [facility] - 07/05/2022 9:30 AM CDT Vent Rate: 105 bpm RR Interval: 568 msec WI Interval: 164 msec QRS Duration: 94 msec QT Interval: 381 msec QTC Interval: 442 msec P-R-T [place]: 43 - -6 - 27 degrees SINUS TACHYCARDIA POSSIBLE LEFT ATRIAL ENLARGEMENT ??[-0.1mV P-WAVE IN V1/V2] POSSIBLE LEFT VENTRICULAR HYPERTROPHY ??[VOLTAGE CRITERIA PLUS LAE OR QRS WIDENING] MODERATE T-WAVE ABNORMALITY, CONSIDER ANTERIOR ISCHEMIA ??[-0.1+ mV T-WAVE IN V3/V4] ABNORMAL ECG Compared to previous ECG the sinus tachycardia and th LVH are new. Electronically Signed By: Ruben Piedra MD, FACC [facility] Lili Nova MD ECG ORDERABLES Final R esult [facility] * POCT glucose (07/04/2022 11:36 AM CDT) Glucose, POC 115 70 - 199 mg/dL [facility] Blood 07/04/2022 11:3 6 AM CDT 07/04/2022 11:36 AM CDT Alvin Hilario MD LAB POCT ORDERABLES - DEVIC E Final Result Performing Organization Address [facility] Co de Phone Number [facility] [address] Department [place] [address] * eGFR (07/04/2022 8:35 AM CDT) eGFR 85 mL/min/1. 73 m2 [facility] Comment: Interpretive Data Reference Interval Normal ?>/= [...] interpretive data was last reviewed 2021. Blood 07/04/2022 8:35 AM CDT 07/04/2022 9:37 AM CDT Nik Logan APRN LAB BLOOD ORDERABL ES Final Result Performing Organization Address [facility] Co de Phone Number [facility] [address] [address] [facility] [employer] [place] [place] [address] * (ABNORMAL) Vancomycin level trough Draw trough 30 minutes prior to dose. (07/04/2022 8:35 AM CDT) Pathologist [facility] Vancomycin trough 9.3(L) 10.0 - 20.0 mcg/mL [facility] Blood 07/04/2022 8:35 AM CDT 07/04/2022 9:36 AM CDT Narrative [facility] - 07/04/2022 10:04 AM CDT Draw trough 30 minutes prior to dose. Srinivasan Lizama MD LAB BLOOD ORDERABLES Final Resu lt Performing Organization Address [facility] de Phone Number [facility] [address] [address] [employer] [place] [address] * (ABNORMAL) Calcium, ionized (07/04/2022 8:35 AM CDT) Ca, ionized, bld 4.36(L) 4.60 - 5.20 mg/dL [facility] Ca, ionized, bld, calc 4.51(L) 4.60 - 5.20 mg/dL [facility] Blood 07/04/2022 8:35 AM CDT 07/04/2022 8:47 AM CDT David WATSON LAB BLOOD ORDERABLES Final R esult Performing Organization Address [facility] Co de Phone Number [facility] [address] [address] Department [employer] [place] [place] [address] * (ABNORMAL) Phosphorus (07/04/2022 8:35 AM CDT) [facility] Phosphorus, pl 1.0(C) 2.3 - 4.5 mg/dL [facility] Comment:Critical Result call ed to and read back by Lucio Langley, DATE: 2022-07-04 10:29:04 BY: Carmelita Hernandez Blood 07/04/2022 8:35 AM CDT 07/04/2022 9:37 AM CDT David WATSON LAB BLOOD ORDERABLES Final R esult [facility] [address] [address] [employer] [place] [address] * Magnesium (07/04/2022 8:35 AM CDT) [facility] Magnesium 2.0 1.4 - 2.5 mg/dL [facility] Blood 07/04/2022 8:35 AM CDT 07/04/2022 9:37 AM CDT David WATSON LAB BLOOD ORDERABLES Final R esult [facility] [address] [address] [employer] [place] [address] * (ABNORMAL) CBC without differential (07/04/2022 8:35 AM CDT) [facility] WBC 12.9(H) 3.8 - 9.9 K/cumm [facility] Hgb 13.0 11.9 - 15.5 g/dL [facility] Hct 39.3 35.6 - 45.5 % [facility] Plt 293 150 - 400 K/cumm [facility] MPV 10.7 9.1 - 12.3 fL [facility] RBC 4.65 3.90 - 5.20 M/cumm [facility] MCV 84.5 81.3 - 96.4 fL [facility] MCH 28.0 27.1 - 33.3 pg [facility] MCHC 33.1 32.3 - 35.7 g/dL [facility] RDW CV 12.8 11.1 - 14.9 % [facility] RDW SD 39.3 35.7 - 48.1 fL [facility] NRBC abs 0.00 0.00 - 0.01 K/cumm [facility] Blood 07/04/2022 8:35 AM CDT 07/04/2022 9:38 AM CDT us David WATSON LAB BLOOD ORDERABLES Final R esult [facility] [address] [address] Department [place] [address] * (ABNORMAL) Basic metabolic panel (07/04/2022 8:35 AM CDT) Sodium 138 135 - 145 mmol/L [facility] Potassium, pl 3.0(L) 3.3 - 4.9 mmol/L [facility] Chloride 101 97 - 110 mmol/L [facility] CO2 24 22 - 32 mmol/L [facility] Anion gap 13 2 - 15 mmol/L [facility] BUN 7(L) 8 - 25 mg/dL [facility] Creatinine 0.88 0.60 - 1.10 mg/dL [facility] Glucose 135 70 - 199 mg/dL [facility] Comment: [...] 8.8 8.5 - 10.3 mg/dL [facility] Blood 07/04/2022 8:35 AM CDT 07/04/2022 9:37 AM CDT David WATSON LAB BLOOD ORDERABLES Final R esult Performing Organization Address City/[facility]/ZIP Co de Phone Number [facility] [address] [address] [employer] [address] * POCT glucose (07/04/2022 7:40 AM CDT) Glucose, POC 103 70 - 199 mg/dL [facility] Blood 07/04/2022 7:40 AM CDT 07/04/2022 7:40 AM CDT Alvin Hilario MD LAB POCT ORDERABLES - DEVIC E Final Result Performing Organization Address [facility] Co de Phone Number [facility] [address] [address] [employer] [place] [address] * POCT glucose (07/03/2022 10:15 PM CDT) Glucose, POC 128 70 - 199 mg/dL [facility] Blood 07/03/2022 10:1 5 PM CDT 07/03/2022 10:15 PM CDT Srinivasan Lizama MD LAB POCT ORDERABLES - DEVICE Fi nal Result Performing Organization Address [facility] Co de Phone Number [facility] [address] [address] Department [employer] [address] * Lidocaine level (07/03/2022 12:19 PM CDT) Lidocaine (Xylocaine) 4.3 1.5 - 5.0 mcg/mL [facility] Comment:Testing performed by : [facility], [address], [place]., [address] Blood 07/03/2022 12:1 9 PM CDT 07/03/2022 2:07 PM CDT Nik Logan APRN LAB BLOOD ORDERABL ES Final Result LAURA [address] [address] Department of Laboratories [place] [phone] * Critical Care (07/03/2022 9:40 AM CDT) Narrative Pablo Ferro MD - 07/03/2022 9:40 AM CDT David Last PA ? 07/03/2022 12:27 PM Critical Care Performed by: David Last PA Authorized by: David Last PA CRITICAL CARE: ??Team: ??CHNE ??Shift: ??AM ??Level of Billing: ??Critical Care ??My time spent with this patient was 75 minutes: Critical Provider Statement: I have seen and examined the patient on this day of service. I have reviewed and confirmed the history, physical exam, laboratory and radiologic data as documented in the signed ICU note. I have reviewed and discussed my treatment plan with the ICU team and other medical/area development consultant staff, making frequent assessments and decisions regarding this patient's complex medical care. Critical Care time was exclusive of time spent performing separately billed procedures, treating other patients, and teaching. This time was in addition to and separate from critical care provided by other practitioners in my group on this day of service. Critical Care was necessary to treat or prevent imminent or life-threatening deterioration of the following conditions: ?Acute pain/acute postoperative pain ?? Cardiomyopathy and Tachy/kanika arrhythmic event ?? Sepsis ??This time was spent by me doing the following: ? Serial laboratory checks and Serial bedside patient exams ?? Acute pain control ?? Initiation/active titration of anti-arrhythmic or rate controlling agent and Serial neurovascular exams ?? Incentive spirometry, pulmonary toilet ?? Active repletion of electrolytes ?? Empiric broad coverage antibiotics and Review of prior or current culture/gram stain results ?? I spent time reviewing and interpreting data from bedside monitors, laboratory results, and imaging, I spent time discussing the management of this critically ill patient with consultants and the medical staff and I spent time documenting in the medical record us David WATSON IN CLINIC/BEDSIDE ORDERABLES Final Result * eGFR (07/03/2022 4:47 AM CDT) eGFR 81 mL/min/1. 73 m2 [facility] Comment: Interpretive Data Reference Interval Normal [...] interpretive data was last reviewed 2021. Blood 07/03/2022 4:47 AM CDT 07/03/2022 5:55 AM CDT us Nik Logan APRN LAB BLOOD ORDERABL ES Final Result [facility] [address] [address] Department [place] [address] * (ABNORMAL) Calcium, ionized (07/03/2022 4:47 AM CDT) Ca, ionized, bld 4.49(L) 4.60 - 5.20 mg/dL [facility] Ca, ionized, bld, calc 4.34(L) 4.60 - 5.20 mg/dL [facility] Blood 07/03/2022 4:47 AM CDT 07/03/2022 5:47 AM CDT David Last PA LAB BLOOD ORDERABLES Final R esult Performing Organization Address [facility] Co de Phone Number LAURA CHAPARRO [address] [address] [employer] [address] * Phosphorus (07/03/2022 4:47 AM CDT) Phosphorus, pl 2.7 2.3 - 4.5 mg/dL [facility] Blood 07/03/2022 4:47 AM CDT 07/03/2022 5:47 AM CDT Jojolexi Robertschelo WATSON LAB BLOOD ORDERABLES Final R esult Performing Organization Address [facility] de Phone Number LAURA CHAPARRO [address] [address] [employer] [address] * Magnesium (07/03/2022 4:47 AM CDT) Pathologist [facility] Magnesium 2.3 1.4 - 2.5 mg/dL [facility] Blood 07/03/2022 4:47 AM CDT 07/03/2022 5:47 AM CDT Jojolexi Robertschelo [place] LAB BLOOD ORDERABLES Final R esult Performing Organization Address [facility] de Phone Number LAURA CHAPARRO [address] [address] [employer] [address] * (ABNORMAL) CBC without differential (07/03/2022 4:47 AM CDT) WBC 11.7(H) 3.8 - 9.9 K/cumm [facility] Hgb 12.2 11.9 - 15.5 g/dL [facility] Hct 37.7 35.6 - 45.5 % [facility] Plt 250 150 - 400 K/cumm [facility] MPV 10.2 9.1 - 12.3 fL [facility] RBC 4.26 3.90 - 5.20 M/cumm [facility] MCV 88.5 81.3 - 96.4 fL [facility] MCH 28.6 27.1 - 33.3 pg [facility] MCHC 32.4 32.3 - 35.7 g/dL [facility] RDW CV 13.1 11.1 - 14.9 % [facility] RDW SD 42.7 35.7 - 48.1 fL [facility] NRBC abs 0.00 0.00 - 0.01 K/cumm [facility] Blood 07/03/2022 4:47 AM CDT 07/03/2022 5:49 AM CDT David WATSON LAB BLOOD ORDERABLES Final R esult [facility] [address] [address] Department [place] [address] * (ABNORMAL) Basic metabolic panel (07/03/2022 4:47 AM CDT) Sodium 140 135 - 145 mmol/L [facility] Potassium, pl 4.0 3.3 - 4.9 mmol/L [facility] Chloride 106 97 - 110 mmol/L [facility] CO2 26 22 - 32 mmol/L [facility] Anion gap 8 2 - 15 mmol/L [facility] BUN 16 8 - 25 mg/dL [facility] Creatinine 0.91 0.60 - 1.10 mg/dL [facility] Glucose 90 70 - 199 mg/dL [facility] Comment: Interpretive Data Fasting glucose >/= 126 [...] interpretive data was last revised 2022. Calcium 8.1(L) 8.5 - 10.3 mg/dL [facility] Blood 07/03/2022 4:47 AM CDT 07/03/2022 5:47 AM CDT David WATSON LAB BLOOD ORDERABLES Final R esult Performing Organization Address [facility] de Phone Number LAURA CHAPARRO [address] [address] Department [place] [employer] [place] [address] * ECG 12 lead (07/02/2022 9:59 PM CDT) 07/02/2022 9:59 PM CDT Narrative [facility] - 07/03/2022 8:31 AM CDT Vent Rate: 90 bpm RR Interval: 664 msec WI Interval: 167 msec QRS Duration: 90 msec QT Interval: 416 msec QTC Interval: 464 msec P-R-T [place]: 29 - -4 - 79 degrees SINUS RHYTHM POSSIBLE LEFT ATRIAL ENLARGEMENT ??[-0.1mV P WAVE IN V1/V2] MODERATE T-WAVE ABNORMALITY, CONSIDER ANTERIOR ISCHEMIA ??[-0.1+ mV T WAVE IN V3/V4] ABNORMAL ECG Compared to prior EKG, heart rate has decreased Anterior T-wave inversions are now evident ST elevations are no longer present Electronically Signed By: Néstor Norris MD Nik Logan APRN ECG ORDERABLES Fi nal Result Performing Organization Address [facility] Phone Number [facility] * POCT glucose (07/02/2022 8:26 PM CDT) Glucose, POC 81 70 - 199 mg/dL [facility] Blood 07/02/2022 8:26 PM CDT 07/02/2022 8:26 PM CDT Bridgett Fry MD LAB POCT ORDERABLES - DEVICE Fi nal Result Performing Organization Address [facility] Co de Phone Number LAURA CHAPARRO [address] [address] Department [place] [employer] [place] [address] * Critical Care (07/02/2022 7:33 PM CDT) Narrative Ld Samaniego MD - 07/02/2022 7:33 PM CDT Nik Logan APRN ? 07/03/2022 ??5:15 AM Critical Care Performed by: Nik Logan APRN Authorized by: Nik Logan APRN CRITICAL CARE: ??Team: ??CHNE ??Shift: ??PM ??Level of Billing: ??Critical Care ??My time spent with this patient was 70 minutes: Critical Provider Statement: I have seen and examined the patient on this day of service. I have reviewed and confirmed the history, physical exam, laboratory and radiologic data as documented in the signed ICU note. I have reviewed and discussed my treatment plan with the ICU team and other medical/area development consultant staff, making frequent assessments and decisions regarding this patient's complex medical care. Critical Care time was exclusive of time spent performing separately billed procedures, treating other patients, and teaching. This time was in addition to and separate from critical care provided by other practitioners in my group on this day of service. Critical Care was necessary to treat or prevent imminent or life-threatening deterioration of the following conditions: ? Acute pain/acute postoperative pain ?? Tachy/kanika arrhythmic event ?? Sepsis ??This time was spent by me doing the following: ? Serial laboratory checks and Serial bedside patient exams ?? Acute pain control ?? Serial neurovascular exams ?? Empiric broad coverage antibiotics and Review of prior or current culture/gram stain results ?? I spent time reviewing and interpreting data from bedside monitors, laboratory results, and imaging, I spent time discussing the management of this critically ill patient with consultants and the medical staff and I spent time documenting in the medical record us Nik Logan APRN IN CLINIC/BEDSIDE ORDERABLES Final Result * POCT glucose (07/02/2022 5:24 PM CDT) Glucose, POC 103 70 - 199 mg/dL LA[facility]A Blood 07/02/2022 5:24 PM CDT 07/02/2022 5:24 PM CDT Bridgett Fry MD LAB POCT ORDERABLES - DEVICE Fi nal Result Performing Organization Address City/[facility]/ZIP Co de Phone Number LAURA CHAPARRO [address] [address] Department [place] [address] * Lidocaine level (07/02/2022 5:21 PM CDT) Lidocaine (Xylocaine) 2.5 1.5 - 5.0 mcg/mL [facility]A CHAPARRO Comment:Testing performed by : [facility], [address] [place]., [address] Blood 07/02/2022 5:21 PM CDT 07/03/2022 12:08 AM CDT David WATSON LAB BLOOD ORDERABLES Final R esult Performing Organization Address [facility] Co de Phone Number LAURA CHAPARRO [address] [address] Department [place] [employer] [place] [address] * Critical Care (07/02/2022 4:53 PM CDT) Narrative Nacho Urbina MD - 07/02/2022 4:53 PM CDT David Last PA ? 07/03/2022 ??9:58 AM Critical Care Performed by: David Last PA Authorized by: David Last PA CRITICAL CARE: ??Team: ??CHNE ??Shift: ??AM ??Level of Billing: ??Critical Care ??My time spent with this patient was 75 minutes: Critical Provider Statement: I have seen and examined the patient on this day of service. I have reviewed and confirmed the history, physical exam, laboratory and radiologic data as documented in the signed ICU note. I have reviewed and discussed my treatment plan with the ICU team and other medical/area development consultant staff, making frequent assessments and decisions regarding this patient's complex medical care. Critical Care time was exclusive of time spent performing separately billed procedures, treating other patients, and teaching. This time was in addition to and separate from critical care provided by other practitioners in my group on this day of service. Critical Care was necessary to treat or prevent imminent or life-threatening deterioration of the following conditions: ?Acute pain/acute postoperative pain ?? Cardiomyopathy and Tachy/kanika arrhythmic event ?? Sepsis ??This time was spent by me doing the following: ? Serial laboratory checks and Serial bedside patient exams ?? Acute pain control ?? Initiation/active titration of anti-arrhythmic or rate controlling agent and Serial neurovascular exams ?? Incentive spirometry, pulmonary toilet ?? Active repletion of electrolytes ?? Empiric broad coverage antibiotics and Review of prior or current culture/gram stain results ?? I spent time reviewing and interpreting data from bedside monitors, laboratory results, and imaging, I spent time discussing the management of this critically ill patient with consultants and the medical staff and I spent time documenting in the medical record David WATSON IN CLINIC/BEDSIDE ORDERABLES Final Result * ECG 12 lead (07/02/2022 11:16 AM CDT) 07/02/2022 11:1 6 AM CDT Narrative [facility] - 07/02/2022 1:18 PM CDT Vent Rate: 125 bpm RR Interval: 480 msec WI Interval: 168 msec QRS Duration: 88 msec QT Interval: 316 msec QTC Interval: 390 msec P-R-T [place]: 27 - -16 - 48 degrees SINUS TACHYCARDIA MINIMAL VOLTAGE CRITERIA FOR LVH, CONSIDER NORMAL VARIANT ??[MEETS CRITERIA IN ONE OF: R(aVL), S(V1), R(V5), R(V5/V6)+S(V1)] ANTERIOR MYOCARDIAL INFARCTION , PROBABLY RECENT [40+ ms Q WAVE AND/OR ST/T ABNORMALITY IN V3/V4] No change from prior EKG Electronically Signed By: Néstor Norris MD us David WATSON ECG ORDERABLES Final Result [facility] * TRANSTHORACIC ECHO (TTE) COMPLETE W DOPPLER/CF WO CONTRAST (07/02/2022 10:00 AM CDT) Anatomical Region Laterality Modality Ultrasound 07/02/2022 9:40 AM CDT Narrative 07/02/2022 10:50 AM CDT [address], [place] [address] Echocardiogram Report Patient Name: MARGY SALDANA : 1980 Study Date: 07/02/2022 9:40:23 AM Gender: F Tech: Location: [id number] Ref.Provider: NIK LOGAN Height(Cm): 165 BSA: 1.87 Weight(Kg): 76.3 Heart Rate: 128 BP: 148/98 Quality: Good Order Provider: NIK LOGAN Procedures: Echocardiographic Report: Transthoracic echocardiogram with complete 2D, M-Mode, and color Doppler examination. Indications: Tachycardia. Measurements: 2D/M Mode ?Doppler ? Measurement ?Value ?Normal Range ? Measurement ?Value ?Normal Range ? EF Teich 2D ?25.3 ? [ 55.0 - 70.0 ] percent ?KATARZYNA Vmax ? 3.15 ? [ 2.00 - 4.00 ] cm2 ? EF Mod 4C ?28.2 ? [ 55.0 - 70.0 ] percent ?AV Mean PG ? 4 ?[ 2 - 4 ] mmHg ? LVIDd 2D ? 4.13 ? [ 3.90 - 5.30 ] cm ? AV Peak Rebel ?1.45 ? [ 1.00 - 1.70 ] m/s ? LVIDs 2D ? 3.65 ? [ 2.30 - 3.90 ] cm ? AV VTI ? 19.36 ?cm ? LVPWd 2D ? 0.75 ? [ 0.60 - 1.00 ] cm ? LVOT Diam ?2.06 ? [ 1.70 - 2.10 ] cm ? IVSd 2D ?0.83 ? [ 0.60 - 0.90 ] cm ? LVOT Peak Rebel ?1.38 ? [ 0.70 - 1.10 ] m/s ? LA Dimension MM ?2.85 ? [ 2.70 - 3.80 ] cm ? LVOT VTI ? 20.96 ?[ 20.00 - 30.00 ] cm ? AoR Diam MM ?2.68 ? [ 2.60 - 3.70 ] cm ? MV E Peak Rebel ?1.10 ? [ 0.60 - 1.30 ] m/s ? LA Volume Index ?19.03 ?[ 16.00 - 28.00 ] cc/m2 ?MV A Peak Rebel ?0.27 ? [ 1.00 - 1.20 ] m/s ? ACS MM ? 1.78 ? cm ? MV PHT ? 44 ? [ 20 - 100 ] msec ? MVA ?5.00 ? MV Decel Time ?118 ?[ 104 - 258 ] msec ? PV Peak Rebel ?0.78 ? [ 0.40 - 0.80 ] m/s ? E' ? 0.07 ? E/E' ? 15.10 ? Measurement ?Value ?Normal Range ? Measurement ?Value ?Normal Range ? 2D/M Mode ?Doppler ? - Findings: Atrial Septum: Normal atrial septum. Left Ventricle: Normal left ventricular wall thickness. Severe global left ventricular systolic dysfunction. There is pseudonormal diastolic dysfunction Grade II. Ejection fraction is visually estimated at 28 %. These segments of the LV are hypokinetic mid anterior segment, apical segment, apical lateral segment and apical inferior segment. Left Atrium: The left atrium is normal in size. Right Ventricle: Normal right ventricular size. Normal right ventricular systolic function. Right Atrium: The right atrium is normal in size. Aortic Valve: Normal structure of the aortic valve. Mitral Valve: Normal structure of the mitral valve. Pulmonic Valve: Normal structure of the pulmonic valve. Tricuspid Valve: Normal structure of the tricuspid valve. Normal right ventricular systolic pressure. Pericardium: Normal pericardium with no significant pericardial effusion. Aorta: Normal aortic root. IVC: Normal size and normal respiratory collapse consistent with normal right atrial pressure (<5 mmHg). Pulmonary Artery: Normal pulmonary artery size. Conclusions: Normal left ventricular wall thickness. Severe global left ventricular systolic dysfunction. There is pseudonormal diastolic dysfunction Grade II. Ejection fraction is visually estimated at 28 %. These segments of the LV are hypokinetic mid anterior segment, apical segment, apical lateral segment and apical inferior segment. Picture could be compatible with Takotsubo or ischemic Cardiomyopathy. Electronically Signed By: Makenzie Saez MD 2022-07-02 10:50:10 CDT CC: CC: Procedure Note Jason Saez MD - 07/02/2022 [place] [address] Echocardiogram Report Patient Name: Ernesto SALDANA ID: [id number] : [id number] Date: 07/02/2022 9:40:23 AM Gender: FAccession #: [id number] Tech: JCLocation: [id number] Ref.Provider: ALIREZA LOGANeight(Cm): 165 BSA: 1.87Weight(Kg): 76.3 Heart Rate: 128BP: 148/98 Quality: GoodOrder Provider: NIK LOGAN Procedures: Echocardiographic Report: Transthoracic echocardiogram with complete 2D, M-Mode, and color Dopplerexamination. Indications: Tachycardia. Measurements: 2D/M Mode Doppler Measurement Value Normal Range MeasurementValue Normal Range EF Teich 2D 25.3 [ 55.0 - 70.0 ] percent KATARZYNA Vmax3.15 [ 2.00 - 4.00 ] cm2 EF Mod 4C 28.2 [ 55.0 - 70.0 ] percent AV Mean PG 4[ 2 - 4 ] mmHg LVIDd 2D 4.13 [ 3.90 - 5.30 ] cm AV Peak Vel1.45 [ 1.00 - 1.70 ] m/s LVIDs 2D 3.65 [ 2.30 - 3.90 ] cm AV VTI19.36 cm LVPWd 2D 0.75 [ 0.60 - 1.00 ] cm LVOT Diam2.06 [ 1.70 - 2.10 ] cm IVSd 2D 0.83 [ 0.60 - 0.90 ] cm LVOT Peak Vel1.38 [ 0.70 - 1.10 ] m/s LA Dimension MM 2.85 [ 2.70 - 3.80 ] cm LVOT VTI20.96 [ 20.00 - 30.00 ] cm AoR Diam MM 2.68 [ 2.60 - 3.70 ] cm MV E Peak Vel1.10 [ 0.60 - 1.30 ] m/s LA Volume Index 19.03 [ 16.00 - 28.00 ] cc/m2 MV A Peak Vel0.27 [ 1.00 - 1.20 ] m/s ACS MM 1.78 cm MV PHT 44[ 20 - 100 ] msec MVA5.00 MV Decel Bedz158 [ 104 - 258 ] msec PV Peak Vel0.78 [ 0.40 - 0.80 ] m/s E'0.07 E/E'15.10 Measurement Value Normal Range MeasurementValue Normal Range 2D/M Mode Doppler - Findings: Atrial Septum: Normal atrial septum. Left Ventricle: Normal left ventricular wall thickness. Severe global left ventricularsystolic dysfunction. There is pseudonormal diastolic dysfunction Grade II.Ejection fraction is visually estimated at 28 %. These segments of the LV are hypokinetic midanterior segment, apical segment, apical lateral segment and apical inferiorsegment. Left Atrium: The left atrium is normal in size. Right Ventricle: Normal right ventricular size. Normal right ventricular systolicfunction. Right Atrium: The right atrium is normal in size. Aortic Valve: Normal structure of the aortic valve. Mitral Valve: Normal structure of the mitral valve. Pulmonic Valve: Normal structure of the pulmonic valve. Tricuspid Valve: Normal structure of the tricuspid valve. Normal right ventricular systolicpressure. Pericardium: Normal pericardium with no significant pericardial effusion. Aorta: Normal aortic root. IVC: Normal size and normal respiratory collapse consistent with normal rightatrial pressure (<5 mmHg). Pulmonary Artery: Normal pulmonary artery size. Conclusions: Normal left ventricular wall thickness. Severe global left ventricularsystolic dysfunction. There is pseudonormal diastolic dysfunction Grade II.Ejection fraction is visually estimated at 28 %. These segments of the LV are hypokinetic midanterior segment, apical segment, apical lateral segment and apical inferiorsegment. Picture could be compatible with Takotsubo or ischemic Cardiomyopathy. Electronically Signed By: Makenzie Saez MD 2022-07-02 10:50:10 CDT CC: CC: Nik Logan APRN CV ECHO PROCEDURES Final Result * US Vein Duplex Upper Extremity Bilateral Complete (07/02/2022 9:00 AM CDT) Anatomical Region Laterality Modality Vascular Bilateral Ultrasound 07/02/2022 9:32 AM CDT Impressions 07/02/2022 9:32 AM CDT Acute superficial thrombosis of the left cephalic vein. Results discussed with ordering provider approximately 0800 on date of study by performing technologist. Electronically signed by: Arslan De La Cruz II, D.O. Narrative 07/02/2022 9:32 AM CDT EXAMINATION: BILATERAL UPPER EXTREMITY VENOUS DUPLEX EXAM DATE: 07/02/2022 8:00 AM HISTORY: Swelling of the bilateral upper extremity. TECHNIQUE: Ultrasound of the deep and superficial veins in both arms was performed using real-time, spectral analysis and color flow imaging. FINDINGS: There is acute occlusive superficial venous thrombosis in the left cephalic vein. There is normal blood flow and compressibility in the jugular, subclavian, axillary, brachial, radial, ulnar, cephalic (right only) and basilic veins bilaterally. ?? Procedure Note Arslan De La Cruz II, - 07/02/2022 EXAMINATION: BILATERAL UPPER EXTREMITY VENOUS DUPLEX EXAM DATE: 07/02/2022 8:00 AM HISTORY: Swelling of the bilateral upper extremity. TECHNIQUE: Ultrasound of the deep and superficial veins in both arms was performed using real-time, spectral analysis and color flow imaging. FINDINGS: There is acute occlusive superficial venous thrombosis in the left cephalic vein. There is normal blood flow and compressibility in the jugular, subclavian, axillary, brachial, radial, ulnar, cephalic (right only) and basilic veins bilaterally. IMPRESSION: Acute superficial thrombosis of the left cephalic vein. Results discussed with ordering provider approximately 0800 on date of study by performing technologist. Electronically signed by: Arslan De La Cruz II, D.O. Nik Logan APRN IM US PROCEDURES Final Result * eGFR (07/02/2022 7:34 AM CDT) [facility] eGFR 74 mL/min/1. 73 m2 LAURA Comment: Interpretive Data Reference Interval Normal ?>/= [...] of Race in Diagnosing Kidney Disease, JASN 202). The CKD-EPI equation should not be used for patients with unstable renal function and has not been validated in children and those over 70. Current interpretive data was last reviewed 2021. Blood 07/02/2022 7:34 AM CDT 07/02/2022 7:36 AM CDT Bridgett Fry MD LAB BLOOD ORDERABLES Final Resu lt Performing Organization Address City/[facility]/ZIP Co de Phone Number LAURA CHAPARRO [address] Department [employer] [place] [address] * (ABNORMAL) Troponin T high-sensitivity (07/02/2022 7:34 AM CDT) Trop T hs 79(H) <=14 ng/L LAURA CHAPARRO Comment: Interpretive Data For further hscTnT resources including the diagnostic algorithm and an aid in interpretation, copy and paste this link: https://nrl.testcatalog.org/show/hsTrop Current Interpretive Data last revised 2020. Blood 07/02/2022 7:34 AM CDT 07/02/2022 7:36 AM CDT Bridgett Fry MD LAB BLOOD ORDERABLES Edited Res ult - Final Performing Organization Address City/[facility]/ZIP Co de Phone Number LAURA CHAPARRO [address] Department [employer] [place] [address] * Phosphorus (07/02/2022 7:34 AM CDT) Phosphorus, pl 2.7 2.3 - 4.5 mg/dL LAURA CHAPARRO Blood 07/02/2022 7:34 AM CDT 07/02/2022 7:36 AM CDT Bridgett Fry MD LAB BLOOD ORDERABLES Final Resu lt Performing Organization Address [facility] Co de Phone Number LAURA CHAPARRO [address] [facility] [employer] [address] * Magnesium (07/02/2022 7:34 AM CDT) Magnesium 2.0 1.4 - 2.5 mg/dL [facility] Blood 07/02/2022 7:34 AM CDT 07/02/2022 7:36 AM CDT Bridgett Fry MD LAB BLOOD ORDERABLES Final Resu lt Performing Organization Address [facility] de Phone Number LAURA CHAPARRO [address] [employer] [address] * (ABNORMAL) CRP (acute phase) (07/02/2022 7:34 AM CDT) CRP 19.0(H) <=10.0 mg/L [facility] Blood 07/02/2022 7:34 AM CDT 07/02/2022 7:36 AM CDT Bridgett Fry MD LAB BLOOD ORDERABLES Final Resu lt Performing Organization Address [facility] Co de Phone Number LAURA CHAPARRO [address] [facility] [employer] [place] [address] * (ABNORMAL) Basic metabolic panel (07/02/2022 7:34 AM CDT) Sodium 137 135 - 145 mmol/L [facility] Potassium, pl 4.3 3.3 - 4.9 mmol/L [facility] Chloride 104 97 - 110 mmol/L [facility] CO2 21(L) 22 - 32 mmol/L [facility] Anion gap 12 2 - 15 mmol/L [facility] BUN 14 8 - 25 mg/dL [facility] Creatinine 0.98 0.60 - 1.10 mg/dL [facility] Glucose 260(H) 70 - 199 mg/dL [facility] Comment: Interpretive Data Fasting glucose >/= 126 [...] interpretive data was last revised 2022. Calcium 8.5 8.5 - 10.3 mg/dL [facility] Blood 07/02/2022 7:34 AM CDT 07/02/2022 7:36 AM CDT Rakesh Trent Fry MD LAB BLOOD ORDERABLES Final Resu lt [facility] [address] Department [place] [address] * Hepatitis panel, acute (07/02/2022 6:00 AM CDT) Hep A IgM Nonreactive Nonreactive [facility] Comment: Interpretive Data: If Hep A IgM Ab is reported as Equivocal, a new sample should be drawn in two weeks for testing. Current interpretive data was last revised on 19. Hep B core IgM Nonreactive Nonreactive [facility] Comment: Interpretive Data If HepB Core IgM Ab is reported as Equivocal, a new sample should be drawn in two weeks for testing. Current interpretive data was last revised on 19. Hep C Ab Nonreactive Nonreactive [facility] Comment: Interpretive Data Nonreactive: Antibodies to HCV [...] last revised on 2019. HepBsAg Nonreactive Nonreactive [facility] Blood 07/02/2022 6:00 AM CDT 07/02/2022 6:04 AM CDT Nik Logan APRN LAB MICROBIOLOGY - GENERAL ORDERABLES Final Result Performing Organization Address [facility] de Phone Number LAURA CHAPARRO [address] Department [place] [address] * (ABNORMAL) Calcium, ionized (07/02/2022 6:00 AM CDT) Pathologist [facility] Ca, ionized, bld, calc 4.32(L) 4.60 - 5.20 mg/dL [facility] Ca, ionized, bld 4.27(L) 4.60 - 5.20 mg/dL [facility] Blood 07/02/2022 6:00 AM CDT 07/02/2022 6:04 AM CDT Nik Logan APRN LAB BLOOD ORDERABL ES Final Result Performing Organization Address [facility] de Phone Number LAURA CHAPARRO [address] Department [place] [address] * (ABNORMAL) CBC without differential (07/02/2022 6:00 AM CDT) WBC 23.8(H) 3.8 - 9.9 K/cumm [facility] Hgb 12.7 11.9 - 15.5 g/dL [facility] Hct 39.7 35.6 - 45.5 % [facility] Plt 368 150 - 400 K/cumm [facility] MPV 10.8 9.1 - 12.3 fL [facility] RBC 4.58 3.90 - 5.20 M/cumm [facility] MCV 86.7 81.3 - 96.4 fL [facility] MCH 27.7 27.1 - 33.3 pg [facility] MCHC 32.0(L) 32.3 - 35.7 g/dL [facility] RDW CV 13.6 11.1 - 14.9 % [facility] RDW SD 41.9 35.7 - 48.1 fL [facility] NRBC abs 0.00 0.00 - 0.01 K/cumm [facility] Blood 07/02/2022 6:00 AM CDT 07/02/2022 6:04 AM CDT us Nik Loagn [employer] LAB BLOOD ORDERABL ES Final Result [facility] [address] Department [place] [address] * Pneumonia PCR Sputum (07/02/2022 2:12 AM CDT) C. pneumoniae DNA Not Detected Not Detected [facility] Comment:Testing performed by : [facility], [address] [place] [address]., [id number] Legionella pneumophila DNA Not Detected Not Detected [facility] Comment:Testing performed by : [facility], [address] [place] [address]., [id number] M. pneumoniae DNA Not Detected Not Detected [facility] Comment:Testing performed by : [facility], [address] [place] [address]., [id number] Adenovirus DNA Not Detected Not Detected [facility] Comment:Testing performed by : [facility], [address] [place] [address]., [id number] Coronavirus (229E, OC43, HKU1, NL63) RNA Not Detected Not Detected [facility] Comment:Testing performed by : [facility], [address] [place] [address]., [id number] Metapneumovirus RNA Not Detected Not Detected [facility] Comment:Testing performed by : [facility], [address] [place] [address]., [address] Rhinovirus/Enterov irus RNA Not Detected Not Detected [facility] Comment:Testing performed by : [facility], [address] [place]., [address] Influenza A RNA Not Detected Not Detected [facility] Comment:Testing performed by : [facility], [address] [place]., [address] Influenza B RNA Not Detected Not Detected [facility] Comment:Testing performed by : [facility], [address] [place]., [address] Parainfluenza virus (1-4) RNA Not Detected Not Detected [facility] Comment:Testing performed by : [facility], [address] [place]., [address] RSV RNA Not Detected Not Detected [facility] Comment:Testing performed by : [facility], [address] [place]., [address] Sputum 07/02/2022 2:12 AM CDT 07/02/2022 5:00 PM CDT Narrative [facility] - 07/02/2022 6:21 PM CDT The BioFire Pneumonia Panel is a multiplexed nucleic acid test capable of simultaneous detection and identification of multiple respiratory viruses and bacteria. ??This panel detects Adenovirus, coronaviruses (Coronavirus HKU1, Coronavirus NL63, Coronavirus 229E, and Coronavirus OC43), Influenza A, Influenza B, Human metapneumovirus, Parainfluenza (1-4), RSV, Rhinovirus/Enterovirus, Chlamydia pneumoniae, Mycoplasma pneumoniae, and Legionella pneumophila. Additional aerobic bacterial targets are reported with the accompanying culture results with the same accession number. Rhinovirus and Enterovirus are genetically similar and cannot be reliably differentiated with this method. Negative adenovirus results should be confirmed by an alternative methodology (i.e. standalone PCR) if the suspicion for adenovirus infection is high. ??The results of this test must be considered in the clinical context of the patient and should not be used as the sole basis for diagnosis, treatment, or other management decisions. ??Negative results in the setting of a respiratory illness may be due to infection with pathogens that are not detected by this test. ??Positive results do not rule out infection/co-infection with other organisms. The BioFire Pneumonia Panel is FDA cleared for lower respiratory tract specimens. The performance characteristics of this assay have been determined by [facility]. Current interpretive data was last revised on 2021. Nik Logan APRN LAB MICROBIOLOGY - GENERAL ORDERABLES Final Result Performing Organization Address [facility]/ZIP Co de Phone Number [facility] [address] [place] [address] * Lactate (07/02/2022 2:12 AM CDT) Pathologist [facility] Lactate 1.2 0.7 - 2.0 mmol/L [facility] Blood 07/02/2022 2:12 AM CDT 07/02/2022 2:25 AM CDT Nik Logan APRN LAB BLOOD ORDERABL ES Final Result Performing Organization Address [facility] de Phone Number [facility] [address] [place] [address] * Influenza A/B, RSV, and COVID-19 PCR Nasopharyngeal (07/02/2022 2:12 AM CDT) [facility] COVID-19 RNA Negative Negative [facility] Influenza A RNA Negative Negative [facility] Influenza B RNA Negative Negative [facility] RSV RNA Negative Negative [facility] Comment: Interpretive data: This test is performed using the [employer] Xpert Xpress CoV-2/Flu/RSV plus assay. This is a multiplex, real-time reverse transcriptase PCR assay intended for the qualitative detection of nucleic acid from SARS-CoV-2, influenza A, influenza B, and respiratory syncytial virus. This assay has been reviewed by the FDA for Emergency Use Authorization (EUA). The performance characteristics have been verified by the performing laboratory. Results must be considered in the clinical context, and a negative result does not rule out infection. Interpretive Data last revised 2021. Nasopharyngeal 07/02/2022 2: 12 AM CDT 07/02/2022 2:25 AM CDT Narrative [facility] - 07/02/2022 3:06 AM CDT Is the Patient experiencing symptoms consistent with COVID?->No Reason for testing?->Patient history unknown Nik Hudson Reseda RANJANA LAB MICROBIOLOGY - GENERAL ORDERABLES Final Result [facility] [address] Department [place] [address] * Pneumonia PCR with aerobic culture and Gram stain Sputum (07/02/2022 2:12 AM CDT) Direct Specimen Exam Molecular Analysis: Rapid molecular analysis has NOT detected bacterial targets (for a list of targets evaluated, refer to the interpretive data for this specimen). Correlation of molecular analysis with culture results is recommended. LAURA Comment:Testing performed by : [facility], [address] [place]., [address] Direct Specimen Exam Stain: Abundant polymorphonuclear leukocytes seen. Few squamous epithelial cells seen. Rare mixed bacterial renay seen on Gram stain. LAURA Comment:Testing performed by : [facility], [address] [place]., [address] Report Final Report: Growth indicates upper respiratory renay. [facility] Comment:Testing performed by : [facility], [address] [place]., [address] Organism GROWTH INDICATES UPPER RESPIRATORY RENAY. [facility]URA Sputum 07/02/2022 2:12 AM CDT 07/02/2022 1:26 PM CDT Narrative [facility] - 07/04/2022 2:24 PM CDT When rapid molecular testing results are reported, testing completed using the RBM TechnologiesArray Pneumonia Panel. ??This molecular assay detects: Acinetobacter calcoaceticus-baumannii complex, Enterobacter cloacae complex, Escherichia coli, Haemophilus influenzae, Enterobacter (Klebsiella) aerogenes, ??Klebsiella oxytoca, Klebsiella pneumoniae group, Moraxella catarrhalis, Proteus spp., Pseudomonas aeruginosa, Serratia marcescens, Staphylococcus aureus, Streptococcus agalactiae, Streptococcus pneumoniae, and Streptococcus pyogenes. ?? These bacteria are detected and reported semi-quantitatively with bins representing approximately 10^4, 10^5, 10^6, or greater than or equal to 10^7 genomic copies of bacterial nucleic acid per mL (copies/mL) of specimen. ??These quantities are reported to aid in estimating the relative abundance of organism(s) detected within the specimen and to correlate these results with culture results. ?? For Staphylococcus aureus, mecA/C and MREJ genes are evaluated to predict methicillin resistance or susceptibility. ??For Gram-negative bacteria, the beta-lactamases CTX-M, IMP, KPC, NDM, VIM and OXA-48-like are evaluated and reported if detected. ??For Gram-negative organisms, the absence of detection of resistance markers does not exclude resistance. ?? Correlation with final culture results and susceptibility testing is recommended. The FilmArray Pneumonia Panel is cleared by the [place] Food and Drug Administration and its performance characteristics have been confirmed by the [facility]. ??The performance of the FilmArray Pneumonia Panel has not been established for monitoring treatment of infection and bacterial nucleic acids may persist independent of organism viability. Nik Logan APRN LAB MICROBIOLOGY - GENERAL ORDERABLES Final Result [facility]URA CHAPARRO [address] Department [place] [address] * Blood culture Blood Antecubital, left (07/02/2022 1:31 AM CDT) Report Final Report: No growth LAURA CHAPARRO Comment:Testing performed by : [facility], [address] [place] [address] Blood (Antecubital, left) 07/02/2022 1:31 AM CDT 07/02/2022 3:07 AM CDT Narrative LAURA CHAPARRO - 07/06/2022 7:00 AM CDT From a different site [...] organism identification may be performed using the Provenigene Gram-Positive Blood Culture Assay. This assay detects microbial DNA in positive blood culture broth via hybridization of target DNA to capture oligonucleotides on a microarray. This assay has been cleared by the [place] Food and Drug Administration and its performance characteristics have been verified by the [facility]. 5. ?For questions about this culture, contact the Microbiology Laboratory at [phone]. Interpretive data was last revised on 2019. Nik Logan APRN LAB MICROBIOLOGY - GENERAL ORDERABLES Final Result Performing Organization Address [facility] Co de Phone Number LAURA CHAPARRO [address] [employer] [place] [address] * Potassium, whole blood (07/01/2022 11:05 PM CDT) [facility] Potassium, bld 4.3 3.3 - 4.9 mmol/L LAURA CHAPARRO Comment: Interpretive Data This method is not able to assess for hemolysis, which may falsely increase potassium concentrations. If further testing is needed to evaluate this result, consider in-laboratory plasma potassium. Current Interpretive Data was last revised on 2021. Blood 07/01/2022 11:0 5 PM CDT 07/01/2022 11:31 PM CDT Nik Logan APRN LAB BLOOD ORDERABL ES Final Result Performing Organization Address [facility] Co de Phone Number LAURA [address] Department [employer] [place], [place] [id number] * Type and screen (07/01/2022 11:05 PM CDT) Mercedes, indirect Negative [facility] ABO Rh O Positive [facility] Blood 07/01/2022 11:0 5 PM CDT 07/01/2022 11:47 PM CDT Narrative [facility]URA - 07/02/2022 12:24 AM CDT Has the patient had Daratumumab or Isatuximab in the past 6 months?->Unknown Bridgett Fry MD LAB BLOOD BANK TEST ORDERABLES Final Result Performing Organization Address [facility] Co de Phone Number [facility] [address] [employer] [place] [address] * (ABNORMAL) Protime-INR (07/01/2022 9:22 PM CDT) PT 16.1(H) 9.2 - 13.5 sec [facility] INR 1.5(H) 0.9 - 1.2 [facility]URA Comment: Interpretive data Oral anticoagulant therapeutic ranges: Venous thromboembolism prophylaxis or treatment: 2.0-3.0 CARDIOLOGY Standard range: 2.0-3.0 High-intensity range: 2.5-3.5 Refer to indication-specific guidelines for appropriate target ranges for prosthetic heart valve replacement. Current interpretive data was last revised on 2019. Blood 07/01/2022 9:22 PM CDT 07/01/2022 9:25 PM CDT Bridgett Fry MD LAB BLOOD ORDERABLES Final Resu lt Performing Organization Address City/[facility]/ZIP Co de Phone Number [facility] [address] [employer] [place] [address] * (ABNORMAL) aPTT (07/01/2022 9:22 PM CDT) aPTT 26(L) 27 - 37 sec [facility]URA Comment: Interpretive Data Therapeutic heparin range: 60.0 - 94.0 seconds. Based on correlation with therapeutic heparin activity range of 0.3-0.7 Units/mL. Current interpretive data was last revised on 2020. Blood 07/01/2022 9:22 PM CDT 07/01/2022 9:25 PM CDT us Bridgett Fry MD LAB BLOOD ORDERABLES Final Resu lt Performing Organization Address City/State/ZIP Co sc Phone Number LAURA [address] [facility] Department of Laboratories [place] [id number] * Critical Care (07/01/2022 9:11 PM CDT) Narrative Bridgett Fry MD - 07/01/2022 9:11 PM CDT Nik Logan APRN ? 07/13/2022 ??2:48 PM Critical Care Performed by: Nik Logan APRN Authorized by: Nik Logan APRN ?? CRITICAL CARE: ??Team: ??CHNE ??Shift: ??PM ??Level of Billing: ??Critical Care ??My time spent with this patient was 100 minutes: Critical Provider Statement: I have seen and examined the patient on this day of service. I have reviewed and confirmed the history, physical exam, laboratory and radiologic data as documented in the signed ICU note. I have reviewed and discussed my treatment plan with the ICU team and other medical/area development consultant staff, making frequent assessments and decisions regarding this patient's complex medical care. Critical Care time was exclusive of time spent performing separately billed procedures, treating other patients, and teaching. This time was in addition to and separate from critical care provided by other practitioners in my group on this day of service. Critical Care was necessary to treat or prevent imminent or life-threatening deterioration of the following conditions: ? Acute pain/acute postoperative pain ?? Cardiomyopathy and Tachy/kanika arrhythmic event ?? Sepsis ??This time was spent by me doing the following: ? Serial laboratory checks and Serial bedside patient exams ?? Acute pain control ?? Initiation/active titration of anti-arrhythmic or rate controlling agent and Serial neurovascular exams ?? Incentive spirometry, pulmonary toilet ?? Active repletion of electrolytes ?? Empiric broad coverage antibiotics and Review of prior or current culture/gram stain results ?? I spent time reviewing and interpreting data from bedside monitors, laboratory results, and imaging, I spent time discussing the management of this critically ill patient with consultants and the medical staff and I spent time documenting in the medical record Nik Logan APRN IN CLINIC/BEDSIDE ORDERABLES Edited Result - Final * Opiates Confirmation, Urine (07/01/2022 8:56 PM CDT) Codeine Conf, Ur Does Not Confirm CutOff 50 ng/mL CERNER Comment:Testing performed by : [facility], [address] [place]., [address] 6- Acetylmorphine Conf, Ur Does Not Confirm CutOff 10 ng/mL CERNER Comment:Testing performed by : [facility], [address] [place]., [address] Hydrocodone Conf, Ur Confirmed Positive CutOff 50 ng/mL CERNER Comment:Testing performed by : [facility], [address] [place]., [address] Morphine Conf, Ur Does Not Confirm CutOff 50 ng/mL CERNER Comment:Testing performed by : [facility], [address] [place]., [address] Hydromorphone Conf, Ur Does Not Confirm CutOff [...] needed. Performance characteristics were determined by the [facility] in a manner consistent with CLIA requirement and has not been cleared or approved by the U.S. Food and Drug Administration. Current interpretive data was last revised 2020. Testing performed by: [facility], [address] [place]., [address] Urine 07/01/2022 8:56 PM CDT 07/02/2022 12:49 PM CDT Nik Logan APRN LAB URINE ORDERABL ES Final Result Performing Organization Address [facility] de Phone Number LAURA CHAPARRO [address] [employer] [place] [address] * Methadone Confirmation, Urine (07/01/2022 8:56 PM CDT) Methadone Conf, Ur Confirmed Positive CutOff 75 ng/mL LAURA Comment:Testing performed by : [facility], [address] [place] [address]., [address] Methadone Metabolite (EDDP) Conf, Ur Confirmed Positive CutOff 75 ng/mL LAURA Comment: Interpretive Data This test detects the presence or absence of drug compounds using LC Tandem mass spectrometry and is not intended to assess compliance with prescribed medications. While this test is highly specific, false positive and false negative results may occur in very rare circumstances. Contact the laboratory for consultation, if needed. Performance characteristics were determined by the [facility] in a manner consistent with CLIA requirement and has not been cleared or approved by the U.S. Food and Drug Administration. Current interpretive data was last revised 2020. Testing performed by: [facility], [address] [place] [address]., [id number] Urine 07/01/2022 8:56 PM CDT 07/02/2022 12:49 PM CDT Nik Logan APRN LAB URINE ORDERABL ES Final Result Performing Organization Address [facility] Co de Phone Number LAURA CHAPARRO [address] [employer] [place] [address] * Fentanyl Confirmation, Urine (07/01/2022 8:56 PM CDT) Fentanyl Conf, Ur Confirmed Positive Cutoff 0.3ng/mL LAURA Comment:Testing performed by : [facility], [address] [place] [address]., [address] Acetylfentanyl Conf, Ur Confirmed Positive Cutoff 1 ng/mL LAURA Comment:Testing performed by : [facility] [address] [place]., [address] Acrylfentanyl Conf, Ur Confirmed Positive Cutoff 1 ng/mL CERNER Comment:Testing performed by : [facility], [address] [place]., [address] Furanylfentanyl Conf, Ur Does Not Confirm Cutoff 1 ng/mL CERNER Comment:Testing performed by : [facility], [address] [place]., [address] Fentanyl Metabolite (Norfentanyl) Conf, Ur Confirmed Positive CutOff 5 ng/mL [facility] Comment: Interpretive Data This test detects the presence or absence of drug compounds using LC Tandem mass spectrometry and is not intended to assess compliance with prescribed medications. While this test is highly specific, false positive and false negative results may occur in very rare circumstances. Contact the laboratory for consultation, if needed. Performance characteristics were determined by the [facility] in a manner consistent with CLIA requirement and has not been cleared or approved by the U.S. Food and Drug Administration. Current interpretive data was last revised 2020. Testing performed by: [facility], [address] [place]., [address] Urine 07/01/2022 8:56 PM CDT 07/02/2022 12:49 PM CDT us Nik Logan APRN LAB URINE ORDERABL ES Final Result [facility] [address] Department [place] [address] * (ABNORMAL) Urinalysis, microscopic only (07/01/2022 8:56 PM CDT) WBC, ur 6-10(A) 0 - 5 /HPF [facility] RBC, ur 3-5(A) 0 - 2 /HPF [facility] Epithelial cells, squamous, ur 1-5 0 - 5 /HPF [facility] Bacteria, ur Trace(A) [facility] Mucous, ur Present(A) [facility] Urine 07/01/2022 8:56 PM CDT 07/01/2022 11:28 PM CDT Nik oLgan APRN LAB URINE ORDERABL ES Final Result Performing Organization Address [facility] Co de Phone Number LAURA CHAPARRO [address] [employer] [address] * (ABNORMAL) Lidocaine level (07/01/2022 8:56 PM CDT) Lidocaine (Xylocaine) 7.9(C) 1.5 - 5.0 mcg/mL LAURA Comment:Testing performed by : [facility], [address] [place] [address]., [id number] Blood 07/01/2022 8:56 PM CDT 07/01/2022 10:23 PM CDT Nik Logan APRN LAB BLOOD ORDERABL ES Final Result Performing Organization Address [facility] de Phone Number LAURA [address] [employer] [place] [address] * (ABNORMAL) Drugs of Abuse Screen, Urine with Reflex Confirmation (07/01/2022 8:56 PM CDT) Amphetamine, ur Not Detected CutOff 500ng/mL LAURA Comment: Interpretive Data - Amphetamines: ??Samples containing greater than 500 ng/mL d-methamphetamine ??or other cross-reacting amphetamine compounds are reported as positive. ??Amphetamine immunoassays are subject to significant false positive rates due to cross-reactivity of non-amphetamine drugs. Current Interpretive Data was last reviewed 2018. Barbiturates, ur Not Detected CutOff 200ng/mL LAURA Comment: Interpretive Data - Barbiturates: ??Samples containing greater than 200 ng/mL secobarbital or other cross-reacting barbiturate compounds are reported as positive. ??False positive and false negative results are possible. Current Interpretive Data was last reviewed 2018. Benzodiazepines, ur Not Detected CutOff 100ng/mL LAURA Comment: Interpretive Data - Benzodiazepines: ??Samples containing [...] 2018. Fentanyl, Ur Detected(A) Cutoff 1 ng/mL CERNER Comment: Interpretive Data - Fentanyls: ??Samples containing greater than 1 ng/mL fentanyl or other cross-reacting fentanyl compounds are reported as detected. ??False positive and false negative results are possible. Current Interpretive Data was last reviewed 2018. Methadone, ur Detected(A) CutOff 300ng/mL CERNER Comment: Interpretive Data - Methadone: ??Samples containing greater than 300 ng/mL d,l-methadone or other cross-reacting compounds are reported as positive. ??False positive and false negative results are possible. Current Interpretive Data was last reviewed 2018. Opiates, ur Detected(A) CutOff 300ng/mL CERNER Comment: Interpretive Data - Opiates: ??Samples containing greater than 300 ng/mL morphine or other cross-reacting compounds are reported as positive. ??False positive and false negative results are possible. Current Interpretive Data was last reviewed 2018. Oxycodone, ur Not Detected CutOff 100ng/mL CERNER Comment: Interpretive Data - Oxycodone: ??Samples containing greater than 100 ng/mL oxycodone or other cross-reacting compounds are reported as positive. ??False positive and false negative results are possible. ?? Current Interpretive Data was last reviewed 2018. Phencyclidine, ur Not Detected CutOff 25 ng/mL CERNER CH Comment: Interpretive Data - Phencyclidine: ??Samples containing greater than 25 ng/mL phencyclidine or other cross-reacting compounds are reported as positive. ??False positive and false negative results are possible. ?? Current Interpretive Data was last reviewed 2018. Urine Creatinine 162 mg/dL CERNER CH Comment: Interpretive Data Urine Creatinine: < 10 mg/dL is extremely dilute = or > 10 but < 20 mg/dL is dilute = or > 20 mg/dL is normal Current Interpretive Data was last revised on 2017. Urine 07/01/2022 8:56 PM CDT 07/01/2022 11:28 PM CDT Narrative CERNER CH - 07/02/2022 12:01 AM CDT Drug of Abuse screening is performed by immunoassay for medical purposes only. ??This is not to be used for Pain Management purposes. ??If Detected, confirmation testing will be performed for Amphetamines, Cocaine, Fentanyl, Methadone, Opiates, Oxycodone or Phencyclidine. Nik Logan APRN LAB URINE ORDERABL ES Final Result [facility] [address] Department [place] [address] * (ABNORMAL) Urinalysis reflex to microscopic (07/01/2022 8:56 PM CDT) Color, ur Mayra Yellow CERNER CH Clarity, ur Clear Clear CERNER CH Specific gravity, ur 1.026 1.003 - 1.030 CERNER CH pH, urine 5.0 [facility] CH Protein, ur ql 1+(A) Negative [facility]ER CH Glucose, ur ql 1+(A) Negative [facility]ERNER CH Ketones, ur 1+(A) Negative CERNER CH Bilirubin, ur Negative Negative [facility]ERNER CH Blood, ur Negative Negative [facility] CH Urobilinogen, ur 4.0(A) <2.0 mg/dL [facility]ER CH Nitrite, ur Negative Negative CERNER CH Leukocyte esterase, ur 2+(A) Negative CERNER CH UA reflex comment Reflex to microscopic UA will be performed. CERNER Urine 07/01/2022 8:56 PM CDT 07/01/2022 11:28 PM CDT Narrative LAURA CHAPARRO - 07/01/2022 11:36 PM CDT ?? Urine pH is affected by diet, medications, systemic acid-base disturbances, and renal tubular function. ??pH may affect urinary stone formation. ??For example, urine pH below 6.0 may help reduce the tendency for calcium phosphate stones and pH greater than 6.0 may reduce the tendency for uric acid stone formation. Source: [employer]. Last revised 04-07-2017 us Nik Hudson [place] [employer] LAB URINE ORDERABL ES Final Result LAURA CHAPARRO [address] Department [place] [address] * XR Chest 1 View (07/01/2022 8:53 PM CDT) Anatomical Region Laterality Modality Body, Chest N/A Computed Radiogr aphy 07/02/2022 8:24 AM CDT Impressions 07/02/2022 8:24 AM CDT NO ACUTE PULMONARY CHANGE. Electronically signed by: Poli Le M.D. Narrative 07/02/2022 8:24 AM CDT EXAMINATION: XR CHEST 1 VIEW HISTORY: Hypoxia ORDER DATE: 07/01/2022 8:40 PM FINDINGS: The lungs are clear of infiltrate. ??There is a PICC line in the SVC The cardiac and mediastinal outlines are unremarkable. There are no significant pleural effusions . No significant abnormalities are noted in the spine or remainder of the bony thorax. Procedure Note Poli Le MD - 07/02/2022 EXAMINATION: XR CHEST 1 VIEW HISTORY: Hypoxia ORDER DATE: 07/01/2022 8:40 PM FINDINGS: The lungs are clear of infiltrate. There is a PICC line in the SVC The cardiac and mediastinal outlines are unremarkable. There are no significant pleural effusions . No significant abnormalities are noted in the spine or remainder of the bony thorax. IMPRESSION: NO ACUTE PULMONARY CHANGE. Electronically signed by: Poli Le M.D. Nik Logan APRN IMG XR PROCEDURES Final Result * ECG 12 lead (07/01/2022 8:47 PM CDT) 07/01/2022 8:47 PM CDT Narrative [facility] - 07/02/2022 8:08 AM CDT Vent Rate: 121 bpm RR Interval: 495 msec WI Interval: 168 msec QRS Duration: 130 msec QT Interval: 284 msec QTC Interval: 356 msec P-R-T [place]: 16 - -34 - 85 degrees SINUS TACHYCARDIA LEFTWARD AXIS VOLTAGE CRITERIA FOR LVH ANTERIOR MYOCARDIAL INFARCTION , OF INDETERMINATE AGE T-WAVE ABNORMALITY, CONSIDER ISCHEMIA Electronically Signed By: Chas Hirsch MD, [facility] Nik Logan APRN ECG ORDERABLES Fi nal Result Performing Organization Address [facility] Co de Phone Number [facility] * Check Sample (07/01/2022 8:42 PM CDT) ABO Rh O Positive [facility] HCLL OTHER 07/01/2022 8:42 PM CDT 07/02/2022 4:21 AM CDT Bridgett Fry MD LAB BLOOD ORDERABLES Final Resu lt Performing Organization Address City/[facility] Co de Phone Number [facility] [address] Department [place] [address] * eGFR (07/01/2022 8:42 PM CDT) eGFR 91 mL/min/1. 73 m2 CERNER Comment: Interpretive Data Reference Interval Normal ?>/= [...] interpretive data was last reviewed 2021. Blood 07/01/2022 8:42 PM CDT 07/01/2022 8:58 PM CDT Nik Logan APRN LAB BLOOD ORDERABL ES Final Result [facility] [address] Department of Laboratories [place] [id number] * COVID-19 Coronavirus RNA Nasopharyngeal (07/01/2022 8:42 PM CDT) COVID-19 RNA Negative Negative [facility] Nasopharyngeal 07/01/2022 8: 42 PM CDT 07/01/2022 8:54 PM CDT Narrative [facility] - 07/01/2022 9:36 PM CDT Is the patient experiencing any symptoms consistent with COVID (eg. Fever, cough, shortness of breath)?->Yes What is the reason for testing?->Symptomatic (Rapid) Date of Symptom Onset->07/01/22 ??Interpretive data: Synonyms for this test include: PCR and NAAT . ??This test is performed using the [employer] Xpert Xpress plus assay. This is a real-time RT-PCR test intended for the qualitative detection of nucleic acid from the SARS-CoV-2. This assay has been reviewed by the FDA for Emergency Use Authorization (EUA). The performance characteristics have been verified by the performing laboratory. Results must be considered in the clinical context and a negative result does not rule out infection. Interpretive data last revised August 26, 2021. ??Interpretive data: Synonyms for this test include: PCR and NAAT . ??This test is performed using the [employer] Xpert Xpress plus assay. This is a real-time RT-PCR test intended for the qualitative detection of nucleic acid from the SARS-CoV-2. This assay has been reviewed by the FDA for Emergency Use Authorization (EUA). The performance characteristics have been verified by the performing laboratory. Results must be considered in the clinical context and a negative result does not rule out infection. Interpretive data last revised August 26, 2021. Nik Logan APRN LAB MICROBIOLOGY - GENERAL ORDERABLES Final Result LAURA [address] Department [place] [address] * hCG, blood, quantitative (07/01/2022 8:42 PM CDT) hCG, quant <0.1 0.0 - 5.0 IUnits/L LAURA CHAPARRO Comment: Interpretive Data Non- Female premenopausal: < or = 5.0 IUnits/L Men: < 5.0 IUnits/L Weeks of Gestation ? Reference Interval ?? 3 to 6 ? 5.8-31,795 IUnits/L ?? 7 to 10 ? 3,697-186,977 IUnits/L ??12 to 15 ?27,832- 70,791 IUnits/L ??16 to 18 ? 9,040- 58,179 IUnits/L The Dat hCG Beta Quant assay procedure was used. Results from different manufacturers or methods may not be comparable. Serial testing should be performed using the same method. Current Interpretive Data was last revised on 2021. Blood 07/01/2022 8:42 PM CDT 07/01/2022 8:50 PM CDT Nik Logan APRN LAB BLOOD ORDERABL ES Final Result Performing Organization Address [facility] Co de Phone Number LAURA CHAPARRO [address] Department of [employer] [place], [place] [id number] * (ABNORMAL) CBC without differential (07/01/2022 8:42 PM CDT) WBC 23.3(H) 3.8 - 9.9 K/cumm [facility] Hgb 13.2 11.9 - 15.5 g/dL [facility] Hct 40.0 35.6 - 45.5 % [facility] Plt 344 150 - 400 K/cumm [facility] MPV 10.3 9.1 - 12.3 fL [facility] RBC 4.62 3.90 - 5.20 M/cumm [facility] MCV 86.6 81.3 - 96.4 fL [facility] MCH 28.6 27.1 - 33.3 pg [facility] MCHC 33.0 32.3 - 35.7 g/dL [facility] RDW CV 13.4 11.1 - 14.9 % [facility] RDW SD 42.3 35.7 - 48.1 fL [facility] NRBC abs 0.00 0.00 - 0.01 K/cumm [facility] Blood 07/01/2022 8:42 PM CDT 07/01/2022 8:51 PM CDT Nik Logan APRN LAB BLOOD ORDERABL ES Final Result Performing Organization Address City/[facility]/ZIP Co de Phone Number LAURA CHAPARRO [address] Department [place] [address] * (ABNORMAL) Troponin T high-sensitivity (07/01/2022 8:42 PM CDT) Trop T hs 77(H) <=14 ng/L [facility] Comment: Slight hemolysis may result in decreased troponin measurement. Consider recollection. Interpretive Data For further hscTnT resources including the diagnostic algorithm and an aid in interpretation, copy and paste this link: https://nrl.testcatalog.org/show/hsTrop Current Interpretive Data last revised 2020. Blood 07/01/2022 8:42 PM CDT 07/01/2022 8:50 PM CDT Nik Logan APRN LAB BLOOD ORDERABL ES Final Result Performing Organization Address [facility] de Phone Number LAURA [address] [employer] [place] [address] * (ABNORMAL) Creatine kinase (CK), total (07/01/2022 8:42 PM CDT) CK 327(H) 30 - 200 Units/L [facility] Comment:Hemolysis present. R esults may be affected. Blood 07/01/2022 8:42 PM CDT 07/01/2022 8:50 PM CDT Nik Logan APRN LAB BLOOD ORDERABL ES Final Result Performing Organization Address [facility] de Phone Number DONNATRAVIS [address] [employer] [place] [address] * (ABNORMAL) Calcium, ionized (07/01/2022 8:42 PM CDT) Ca, ionized, bld, calc 4.15(L) 4.60 - 5.20 mg/dL [facility] Ca, ionized, bld 4.15(L) 4.60 - 5.20 mg/dL [facility] Blood 07/01/2022 8:42 PM CDT 07/01/2022 8:56 PM CDT Nik Logan APRN LAB BLOOD ORDERABL ES Final Result Performing Organization Address [facility] de Phone Number DONNATRAVIS [address] [place] [address] * Phosphorus (07/01/2022 8:42 PM CDT) Phosphorus, pl 2.4 2.3 - 4.5 mg/dL CERNER Blood 07/01/2022 8:42 PM CDT 07/01/2022 8:50 PM CDT [facility] ES Final Result Performing Organization Address [facility] de Phone Number [facility] [address] [employer] [address] * Magnesium (07/01/2022 8:42 PM CDT) Pathologist [facility] Magnesium 2.1 1.4 - 2.5 mg/dL [facility] Blood 07/01/2022 8:42 PM CDT 07/01/2022 8:50 PM CDT Nik Logan [facility] LAB BLOOD ORDERABL ES Final Result Performing Organization Address [facility] de Phone Number [facility] [address] Department [place] [employer] [place] [address] * (ABNORMAL) Comprehensive metabolic panel (07/01/2022 8:42 PM CDT) Pathologist [facility] Sodium 135 135 - 145 mmol/L [facility] Potassium, pl 5.6(H) 3.3 - 4.9 mmol/L CERNER Comment:Hemolysis present. R esults may be affected. Chloride 103 97 - 110 mmol/L CERNER CO2 19(L) 22 - 32 mmol/L CERNER Anion gap 13 2 - 15 mmol/L CERNER BUN 9 8 - 25 mg/dL CERNER Creatinine 0.83 0.60 - 1.10 mg/dL CERNER Glucose 138 70 - 199 mg/dL CERNER CH Comment: [...] interpretive data was last revised 2022. Calcium 8.9 8.5 - 10.3 mg/dL CERNER CH Bilirubin, total 0.6 0.1 - 1.2 mg/dL CERNER CH Protein, pl 7.6 6.5 - 8.5 g/dL [facility] CH Albumin 3.9 3.5 - 5.0 g/dL CERNER CH Alk phos 95 40 - 130 Units/L C[facility] CH ALT 40 7 - 45 Units/L C[facility] CH AST 66(H) 10 - 45 Units/L [facility] CH Comment:Hemolysis present. R esults may be affected. Blood 07/01/2022 8:42 PM CDT 07/01/2022 8:50 PM CDT Nik Logan APRN LAB BLOOD ORDERABL ES Final Result Performing Organization Address [facility]/ZIP Co de Phone Number DONNATRAVIS CHAPARRO [address] [employer] [place] [address] * Infection Prevention MRSA Only (Staphylococcus aureus) PCR Nasal (07/01/2022 8:42 PM CDT) [facility] PCR Scrn, Methicillin resistant Staphylococcus aureus (MRSA) Not Detected Not Detected [facility] Comment: Testing performed using Nucleic Acid Amplification with the [employer] Xpert MRSA Assay. This assay detects DNA from SCCmec strains of Staphylococcus aureus using Real- Time PCR and has been cleared by the FDA. Performance characteristics have been verified by the [facility]. Nasal 07/01/2022 8:42 PM CDT 07/01/2022 8:54 PM CDT Nik Logan APRN LAB MICROBIOLOGY - GENERAL ORDERABLES Final Result Performing Organization Address City/[facility]/ZIP Co de Phone Number DONNATRAVIS [address] Department [employer] [place] [address] * POCT glucose (07/01/2022 8:16 PM CDT) Glucose, POC 128 70 - 199 mg/dL LAURA CHAPARRO Blood 07/01/2022 8:16 PM CDT 07/01/2022 8:16 PM CDT us Bridgett Fry MD LAB POCT ORDERABLES - DEVICE Fi nal Result LAURA CHAPARRO [address] Department [place] [address] documented in this encounter Visit Diagnoses Diagnosis Ventricular tachycardia (HCC)- Primary Paroxysmal ventricular tachycardia Ventricular tachycardia (HCC) Paroxysmal ventricular tachycardia Opioid abuse (HCC) Nondependent opioid abuse, unspecified HFrEF (heart failure with reduced ejection fraction) (CMS/HCC) (HCC) documented in this encounter Admitting Diagnoses Diagnosis Ventricular tachycardia (HCC) Paroxysmal ventricular tachycardia documented in this encounter Administered Medications Inactive Administered Medications - up to 3 most recent administrations Medication Order MAR Action Action Date Dose Rate Site acetaminophen (TYLENOL) tablet 650 mg 650 mg, oral, Every 6 hours PRN, 1st line for pain, Starting on 07/03/22 at 1250 Given 07/03/2022 12:55 PM CDT 650 mg aluminum-magnesium hydroxide-simethicone (MAALOX) 40-40-4 mg/mL oral suspension 30 mL 30 mL, oral, Every 4 hours PRN, heartburn, Starting on 07/04/22 at 1746 Given 07/05/2022 5:28 AM CDT 30 mL Given 07/04/2022 6:27 PM CDT 30 mL calcium gluconate 1 g/50 mL in sodium chloride (premix) solution 1 g 1 g, intravenous, Administer over 60 Minutes, Once, On Tue07/02/22 at 0200, For 1 dose, Room temperature only, Indications: hypocalcemiaIndications:hypocalce keyanna New Bag 07/02/2022 1:34 AM CDT 1 g calcium gluconate 1 g/50 mL in sodium chloride (premix) solution 1 g 1 g, intravenous, Administer over 60 Minutes, Once, On Tue07/05/22 at 1415, For 1 dose, Room temperature only, Indications: hypocalcemiaIndications:hypocalce keyanna New Bag 07/05/2022 3:11 PM CDT 1 g calcium gluconate 1 g/50 mL in sodium chloride (premix) solution 1 g 1 g, intravenous, Administer over 60 Minutes, Once, On Tue07/06/22 at 1445, For 1 dose, Room temperature only, Indications: hypocalcemiaIndications:hypocalce keyanna New 07/06/2022 4:13 PM CDT 1 g cefepime (MAXIPIME) 2,000 mg in sodium chloride 0.9% 100 mL IVPB 2,000 mg, intravenous, at 200 mL/hr, Administer over 30 Minutes, Every 8 hours scheduled, First dose on Tue07/02/22 at 0200, Mini-Bag Plus bag, Indications: Sepsis, Skin/Soft Tissue InfectionIndications:Sepsis,Skin/ Soft Tissue Infection New 07/02/2022 2:11 AM CDT 2,000 mg 200 mL/hr cefTRIAXone (ROCEPHIN) 1,000 mg/10 mL in sterile water (premix) 1,000 mg 1,000 mg, intravenous, at 600 mL/hr, Administer over 1 Minutes, Every 24 hours scheduled, First dose on Tue07/02/22 at 1145, Indications: Urinary Tract/Genitourinary InfectionIndications:Urinary Tract/Genitourinary Infection Given 07/03/2022 8:25 AM CDT 1,000 mg 6 00 mL/hr Given 07/02/2022 11:37 AM CDT 1,000 mg 600 mL/hr dextrose 5% and Lactated Ringer's infusion 40 mL/hr, intravenous, Continuous, Starting on Tue07/02/22 at 0645 New Bag 07/02/2022 6:05 AM CDT 40 mL/hr 40 mL/hr dextrose 5% and Lactated Ringer's infusion 40 mL/hr, intravenous, Continuous, Starting on Tue07/02/22 at 2130 New Bag 07/04/2022 2:57 AM CDT 40 mL/hr 40 mL/hr New Bag 07/02/2022 9:18 PM CDT 40 mL/hr 40 mL/hr enoxaparin (LOVENOX) syringe 40 mg 40 mg, subcutaneous, Daily (for enoxaparin), First dose on Janett 07/01/22 at 2345, Indications: Deep Vein Thrombosis PreventionIndications:Deep Vein Thrombosis Prevention Given 07/06/2022 8:50 PM CDT 40 mg Right Lower Abdomen Given 07/05/2022 8:55 PM CDT 40 mg Le ft Upper Abdomen Given 07/04/2022 8:27 PM CDT 40 mg Le ft Lower Abdomen ioversoL (OPTIRAY 350) syringe 100 mL 100 mL, intravenous, Once in imaging, contrast, Starting on Tue07/07/22 at 1952, For 1 dose Contrast Given 07/07/2022 7:53 PM CDT 100 mL Lactated Ringer's (LR) bolus 500 mL 500 mL, intravenous, at 500 mL/hr, Administer over 1 Hours, Once, On Tue07/02/22 at 1915, For 1 dose New Bag 07/02/2022 6:31 PM CDT 500 mL 500 mL/hr lidocaine in dextrose 5% 2 g/250 mL (8 mg/mL) infusion (premix) 2 mg/min (15 mL/hr), 8 mg/mL, intravenous, Continuous, Starting on Janett 07/01/22 at 2145, Until Tue07/02/22 at 0626, Indications: Ventricular Arrhythmias, RoutineIndications:Ventricul ar Arrhythmias Rate/Dose Change 07/01/2022 11:01 PM CDT 2 mg/min 15 mL/hr New Bag 07/01/2022 9:26 PM CDT 3 mg/min 22.5 mL/hr lidocaine in dextrose 5% 2 g/250 mL (8 mg/mL) infusion (premix) 0.5 mg/min (3.75 mL/hr), 8 mg/mL, intravenous, Continuous, Starting on 07/03/22 at 0130, Until 07/05/22 at 2000, Indications: Ventricular Arrhythmias, RoutineIndications:Ventric ular Arrhythmias Rate/Dose Change 07/05/2022 8:27 AM CDT 0.5 mg/min 3.75 mL/hr New Bag 07/04/2022 6:28 PM CDT 2 mg/min 15 mL/hr New Bag 07/03/2022 10:11 PM CDT 2 mg/min 15 mL/hr loperamide (IMODIUM) capsule 2 mg 2 mg, oral, 4 times daily PRN, diarrhea, Starting on Tue07/04/22 at 1053, Maximum recommended dose 16 mg/day Given 07/04/2022 8:42 PM CDT 2 mg Given 07/04/2022 11:53 AM CDT 2 mg losartan (COZAAR) tablet 100 mg 100 mg, oral, Daily, First dose on Tue07/04/22 at 1415, On hold since Tue07/06/2022 at 0836 until manually unheld Given 07/06/2022 8:24 AM CDT 100 mg Given 07/05/2022 8:48 AM CDT 100 mg Given 07/04/2022 1:57 PM CDT 100 mg losartan (COZAAR) tablet 12.5 mg 12.5 mg, oral, Daily, First dose on Tue07/08/22 at 0930 Given 07/08/2022 11:11 AM CDT 12.5 mg magnesium sulfate 2 g/50 mL in water (premix) 2 g 2 g, intravenous, Administer over 60 Minutes, Once, On Tue07/03/22 at 0630, For 1 dose New Bag 07/03/2022 5:53 AM CDT 2 g magnesium sulfate 4 g/100 mL in water (premix) 4 g 4 g, intravenous, Administer over 90 Minutes, Once, On Tue07/02/22 at 0930, For 1 dose New Bag 07/02/2022 9:03 AM CDT 4 g methadone (DOLOPHINE) 1 mg/mL oral solution 150 mg 150 mg, oral, Once, On Tue07/04/22 at 0900, For 1 dose Given 07/04/2022 7:25 AM CDT 150 mg methadone (DOLOPHINE) 1 mg/mL oral solution 170 mg 170 mg, feeding tube, Once, On Tue07/02/22 at 2215, For 1 dose, Please wait to give until after EKG has been examined Given 07/02/2022 11:09 PM CDT 170 mg metoprolol tartrate (LOPRESSOR) immediate release tablet 12.5 mg 12.5 mg, oral, 2 times daily, First dose on Tue07/02/22 at 1215 Given 07/02/2022 12:33 PM CDT 12.5 mg metoprolol tartrate (LOPRESSOR) immediate release tablet 12.5 mg 12.5 mg, oral, 2 times daily, First dose on Tue07/06/22 at 2100 Given 07/06/2022 8:50 PM CDT 12.5 mg metoprolol XL (TOPROL-XL) extended release tablet 25 mg 25 mg, oral, Daily, First dose on Tue07/07/22 at 0900, Tablets that are scored may be split, but do not crush, chew, dissolve, open or otherwise manipulate tablet/capsule. Given 07/08/2022 8:56 AM CDT 25 mg Given 07/07/2022 8:26 AM CDT 25 mg ondansetron (ZOFRAN) injection 4 mg 4 mg, intravenous, Administer over 2 Minutes, Once, On Tue07/02/22 at 0645, For 1 dose Given 07/02/2022 6:09 AM CDT 4 mg ondansetron (ZOFRAN) injection 4 mg 4 mg, intravenous, Administer over 2 Minutes, Every 6 hours PRN, nausea, vomiting, Starting on Tue07/02/22 at 0846, On hold since Tue07/03/2022 at 0226 until manually unheld Given 07/02/2022 4:34 PM CDT 4 mg Given 07/02/2022 10:24 AM CDT 4 mg ondansetron (ZOFRAN) injection 4 mg 4 mg, intravenous, Administer over 2 Minutes, Every 4 hours PRN, nausea, vomiting, Starting on 07/03/22 at 1606 Given 07/05/2022 5:28 AM CDT 4 mg Given 07/04/2022 8:43 PM CDT 4 mg Given 07/04/2022 2:36 PM CDT 4 mg oxyCODONE (ROXICODONE) tablet 10 mg 10 mg, oral, Every 4 hours PRN, 1st line for pain, Starting on Tue07/01/22 at 2104, Indications: Pain, On hold since Tue07/02/2022 at 2345 until manually unheldIndications:Pain Given 07/02/2022 4:3 5 PM CDT 10 mg Given 07/02/2022 12:33 PM CDT 10 mg Given 07/02/2022 6:04 AM CDT 10 mg potassium chloride ER (KLOR-CON) extended release tablet 40 mEq 40 mEq, oral, Once, On Tue07/04/22 at 1430, For 1 dose, Do not crush, chew, cut, dissolve, open or otherwise manipulate tablet/capsule. Given 07/04/2022 1:57 PM CDT 40 mEq potassium, sodium phosphates (PHOS-NAK) 280-160-250 mg packet 2 packet 2 packet, oral, 3 times daily before meals, First dose on 07/05/22 at 1245, For 2 days, Each packet contains elemental phosphorus 250 mg (8 mmol), potassium 280 mg (7.1 mEq), and sodium 160 mg (6.9 mEq). Given 07/05/2022 7:20 P M CDT 2 packets Given 07/05/2022 2:47 PM CDT 2 packets prochlorperazine (COMPAZINE) injection 10 mg 10 mg, intravenous, Administer over 2 Minutes, Once, On Tue07/02/22 at 0930, For 1 dose Given 07/02/2022 8:51 AM CDT 10 mg senna-docusate (PERICOLACE) 8.6-50 mg per tablet 1 tablet 1 tablet, oral, 2 times daily, First dose on Tue07/02/22 at 2145 Given 07/08/2022 8:57 AM CDT 1 tablet Given 07/03/2022 9:17 PM CDT 1 tablet Given 07/02/2022 11:10 PM CDT 1 tablet sodium phosphate 30 mmol in sodium chloride 0.9% 250 mL IVPB 30 mmol, intravenous, at 43.3 mL/hr, Administer over 6 Hours, Once, On Tue07/04/22 at 1130, For 1 dose New Bag 07/04/2022 11:53 AM CDT 30 mmol 43.3 mL/hr sodium zirconium cyclosilicate (LOKELMA) packet 10 g 10 g, oral, Once, On Tue07/07/22 at 0715, For 1 dose, Adjust medication timing to ensure other oral medications are administered at least 2 hours before or 2 hours after sodium zirconium cyclosilicate. Empty packet(s) into a glass with 3 tablespoons (45 mL) of water. Stir and administer immediately. Repeat until no powder remains in glass., Indications: hyperkalemiaIndications:hyperkale keyanna Given 07/07/2022 6:48 AM CDT 10 g vancomycin 1,750 mg/517.5 mL sodium chloride 0.9% (premix) 1,750 mg 1,750 mg, intravenous, Administer over 120 Minutes, Once, On Tue07/02/22 at 0300, For 1 dose, Indications: Sepsis, Skin/Soft Tissue InfectionIndications:Sepsis,Skin/ Soft Tissue Infection New Bag 07/02/2022 3:40 AM CDT 1,750 mg vancomycin 1250 mg/250 mL in sodium chloride 0.9% (premix) 1,250 mg 1,250 mg (rounded from 1,144.5 mg = 15 mg/kg ? 76.3 kg), intravenous, Administer over 60 Minutes, Every 12 hours, First dose on Tue07/02/22 at 1800, Indications: Sepsis, Skin/Soft Tissue InfectionIndications:Sepsis,Skin/ Soft Tissue Infection New Bag 07/03/2022 9:15 PM CDT 1,250 mg New Bag 07/03/2022 5:27 AM CDT 1,250 mg New Bag 07/02/2022 5:21 PM CDT 1,250 mg vancomycin 1250 mg/250 mL in sodium chloride 0.9% (premix) 1,250 mg 1,250 mg (rounded from 1,144.5 mg = 15 mg/kg ? 76.3 kg), intravenous, Administer over 60 Minutes, Every 12 hours, First dose (after last modification) on Tue07/04/22 at 0900, Indications: Sepsis, Skin/Soft Tissue InfectionIndications:Sepsis,Skin/Soft Tissue Infection New 07/07/2022 8:26 AM CDT 1,250 mg 07/06/2022 8:50 PM CDT 1,250 mg New 07/06/2022 8:28 AM CDT 1,250 mg documented in this encounter Discontinued Medications Medication Sig Discontinue Reason Start Date End Da te chlordiazePOXIDE (LIBRIUM) 25 mg capsuleIndications:an xiety Take 1 capsule (25 mg total) by mouth 3 (three) times a day as needed for anxiety Reorder 03/07/2020 07/08/2022 losartan (COZAAR) 100 mg tablet Take 1 tablet (100 mg total) by mouth daily Stop Taking at Discharge 03/07/2020 07/08/2022 chlordiazePOXIDE (LIBRIUM) 25 mg capsuleIndications:an xiety Take 1 capsule (25 mg total) by mouth 3 (three) times a day as needed for anxiety or withdrawal symptoms Reorder 07/08/2022 07/10/2022 documented as of this encounter Active and Recently Administered Medications Times are shown in CDT. Scheduled Medication Order 07/06/2022 07/07/2022 07/08/2022 calcium gluconate 1 g/50 mL in sodium chloride (premix) solution 1 g (COMPLETED) 1 g, intravenous, Administer over 60 Minutes, Once, On Tue07/06/22 at 1445, For 1 dose, Room temperature only, Indications: hypocalcemia 1613 (New Bag - Provider: Tete Melo, ZANE) enoxaparin (LOVENOX) syringe 40 mg 40 mg, subcutaneous, Daily (for enoxaparin), First dose on Tue07/01/22 at 2345, Indications: Deep Vein Thrombosis Prevention 2049 (Given - Provider: Nilton Mccann, ZANE) 2017 (Not Given - Provider: Nilton Mccann, ZANE - Reason: Patient/family refused) losartan (COZAAR) tablet 100 mg (CANCELED) 100 mg, oral, Daily, First dose on Tue07/04/22 at 1415, On hold since Tue07/06/2022 at 0836 until manually unheld 0824 (Given - Provider: Tete Melo, ZANE)0836 (Held by Provider - Provider: Alvin Hilario MD - Reason: Other - Comment: hyperkalemia) 0900 (Dose Auto Held - Provider: Alvin Hilario MD) 0858 (Unheld by Provider - Provider: Stefany Winkler DO) losartan (COZAAR) tablet 12.5 mg 12.5 mg, oral, Daily, First dose on Tue07/08/22 at 0930 1111 (Given - Provider: Sharri Flynn, ZANE) metoprolol tartrate (LOPRESSOR) immediate release tablet 12.5 mg (CANCELED) 12.5 mg, oral, 2 times daily, First dose on Tue07/06/22 at 2100 2050 (Given - Provider: Nilton Mccann, ZANE) metoprolol XL (TOPROL-XL) extended release tablet 25 mg 25 mg, oral, Daily, First dose on Tue07/07/22 at 0900, Tablets that are scored may be split, but do not crush, chew, dissolve, open or otherwise manipulate tablet/capsule. 0826 (Given - Provider: Tete Melo RN) 0856 (Given - Provider: Sharri Flynn, RN) senna-docusate (PERICOLACE) 8.6-50 mg per tablet 1 tablet 1 tablet, oral, 2 times daily, First dose on Tue07/02/22 at 2145 0826 (Not Given - Provider: Tete Melo RN - Reason: Order parameters not met)1927 (Not Given - Provider: Nilton Mccann, ZANE - Reason: Patient/family refused) 826 (Not Given - Provider: Tete Melo RN - Reason: Patient/family refused)2018 (Not Given - Provider: Nilton Mccann RN - Reason: Patient/family refused) 0857 (Given - Provider: Sharri Flynn, ZANE) sodium zirconium cyclosilicate (LOKELMA) packet 10 g (COMPLETED) 10 g, oral, Once, On Tue07/07/22 at 0715, For 1 dose, Adjust medication timing to ensure other oral medications are administered at least 2 hours before or 2 hours after sodium zirconium cyclosilicate. Empty packet(s) into a glass with 3 tablespoons (45 mL) of water. Stir and administer immediately. Repeat until no powder remains in glass., Indications: hyperkalemia 0648 (Given - Provider: Nilton Mccann, ZANE) vancomycin 1250 mg/250 mL in sodium chloride 0.9% (premix) 1,250 mg (CANCELED) 1,250 mg (rounded from 1,144.5 mg = 15 mg/kg ? 76.3 kg), intravenous, Administer over 60 Minutes, Every 12 hours, First dose (after last modification) on Tue07/04/22 at 0900, Indications: Sepsis, Skin/Soft Tissue Infection 28 (New Bag - Provider: Tete Melo RN)2049 (New Bag - Provider: Nilton Mccann, ZANE) 08 (New Bag - Provider: Tete Melo RN) PRN Medication Order 07/06/2022 07/07/2022 07/08/2022 acetaminophen (TYLENOL) tablet 650 mg 650 mg, oral, Every 6 hours PRN, 1st line for pain, Starting on 07/03/22 at 1250 aluminum-magnesium hydroxide-simethicone (MAALOX) 40-40-4 mg/mL oral suspension 30 mL 30 mL, oral, Every 4 hours PRN, heartburn, Starting on 07/04/22 at 1746 ioversoL (OPTIRAY 350) syringe 100 mL (COMPLETED) 100 mL, intravenous, Once in imaging, contrast, Starting on 07/07/22 at 1952, For 1 dose 1952 (Contrast Given - Provider: Nancy Fitzgerald, RT) ondansetron (ZOFRAN) injection 4 mg 4 mg, intravenous, Administer over 2 Minutes, Every 4 hours PRN, nausea, vomiting, Starting on 07/03/22 at 1606 documented in this encounter Orders Medications Ordered That Timoteo ht Not Have Been Administered Count Last Ordered Date First Ordered Date potassium chloride ER (KLOR- CON) extended release tablet 40 mEq 1 07/04/2022 methadone (DOLOPHINE) 1 mg/m L oral solution 190 mg 1 07/02/2022 metoprolol tartrate (LOPRESS OR) immediate release tablet 12.5 mg 1 07/02/2022 metoprolol tartrate (LOPRESS OR) immediate release tablet 25 mg 1 07/02/2022 vancomycin 1250 mg/250 mL in sodium chloride 0.9% (premix) 1,250 mg 1 07/02/2022 ondansetron (ZOFRAN) 4 mg/2 mL injection - ADS Override Pull 1 07/01/2022 Lab Orders Without Results Count Last Ordered D ate First Ordered Date POCT GLUCOSE DEVICE 21 07/08/2022 07/02/19 Diet Count Last Ordered Date First Orde red Date ADULT DISCHARGE DIET 1 07/08/2022 Nursing Count Last Ordered Date First Orde red Date DISCHARGE ACTIVITY 1 07/08/2022 DISCHARGE CALL PROVIDER 8 07/08/2022 DISCHARGE INSTRUCTIONS 2 07/08/2022 FOLLOW UP WITH ESTABLISHED PROVIDER 2 07/08 TELEMETRY MONITORING 1 07/05/2022 WEIGH PATIENT 1 07/01/2022 Consult Count Last Ordered Date First Orde red Date IP CONSULT TO CARDIOLOGY 1 07/02/2022 Admission Count Last Ordered Date First Orde red Date ADMIT TO INPATIENT 1 07/01/2022 Transfer Count Last Ordered Date First Orde red Date TRANSFER PATIENT TO NEW UNIT 1 07/03/2022 Discharge Count Last Ordered Date First Orde red Date DISCHARGE PATIENT 1 07/08/2022 CORE MEASURES Count Last Ordered Date First Ord ered Date REASON FOR NO VTE PROPHYLAXI S - HOSPITAL ADMISSION - MEDICATIONS 1 07/01/2022 ADT Patient Update Count Last Ordered Date Firs t Ordered Date PROVIDER TREATMENT TEAM 1 07/01/2022 documented in this encounter Additional Health Concerns Infection Onset Date Last Indicated Resolved Time COVID: Suspected 07/01/2022 07/01/2022 07/01/2022 9:37 PM CDT documented as of this encounter Care Teams Propagation Worker Relationship Specialty Start Date End Date No, Physician PCP - General 01/31/21 Rashaun Benavidez MD [id number] [id number] Consulting Physician Cardiology 07/08/22 Miscellaneous, Not In File 07/08/22 documented as of this encounter
--- OUTSIDE RECORDS SUMMARY | 2024-03-13 02:23 | XMS_ITS | Encounter Summary ---
Author Organization [facility] Healthcare Address [address] [place] [address] Care Team Providers Care Teacher Of The Sight Impaired Name Role Phone Unavailable Primary Care Provider Unavailabl e Encounter Details Date Type Department Care Team (Late st Contact Info) Description 05/15/2014 3:36 PM PARTY COORDINATOR - 05/18/2014 1:50 PM PARTY COORDINATOR [place] [id number] [address] Drug withdrawal (HCC); Opioid type dependence, abuse (HCC); Bipolar affective disorder (HCC) Social History Tobacco Use Types Packs/Day Years Used Date Smoking Tobacco: Never Assessed Comments Unknown Sex and Gender Information Value Date Recorded Sex Assigned at Not on file Legal Sex Female 3:16 AM PARTY COORDINATOR Gender Identity Not on file Sexual Orientation Not on file documented as of this encounter Last Filed Vital Signs Vital Sign Reading Time Taken Comments Blood Pressure 117/79 05/18/2014 12:54 PM PARTY COORDINATOR Pulse 92 05/18/2014 12:54 PM PARTY COORDINATOR Temperature - - Respiratory Rate - - Oxygen Saturation - - Inhaled Oxygen Concentration - - Weight 67.3 kg (148 lb 6.4 oz) 05/15/2014 3:38 P M PARTY COORDINATOR Height 160 cm (5' 2.99 ) 05/15/2014 3:38 PM PARTY COORDINATOR Body Mass Index 26.29 05/15/2014 3:38 PM PARTY COORDINATOR documented in this encounter Discharge Summaries * ProviderJazmin MD - 05/18/2014 12:00 AM CST DISCHARGE SUMMARY Patient: MARGY SALDANA. Account: [id number] Room No: 511-02 : 1980 Patient Type: IP Attend.: Arslan Funes M.D. Admit Date: 05/15/2014 Dict.: Arslan Funes M.D. Disch. Date: Discharge Diagnosis: Acute opiate withdrawal. Chief Complaint/Brief History of Present Illness: Please see History and Physical. Hospital Course: The patient underwent successful medical stabilization on the [facility], and she is now ready for discharge with outpatient followup. Discharge Medications: 1. Bupropion SR 200 mg daily. 2. Thorazine 50 mg daily. 3. Depakote ER 500 mg at bedtime. 4. Clonidine 0.1 mg q.6 hours p.r.n. 5. Diazepam 10 mg t.i.d. p.r.n. Activity: As tolerated. Diet: Diet as at home. Followup Care: As per [facility]. Kaity Cordero/ct TD: 05/18/2014 11:05 Electronically Authenticated by: Arslan Funes MD On 05/19/2014 06:04 AM PARTY COORDINATOR documented in this encounter H&P Notes * ProviderJazmin MD - 05/15/2014 12:00 AM CST HISTORY AND PHYSICAL Patient: MARGY SALDANA Account: [id number] Room No: 511-02 : 1980 Patient Type: IP Attend.: Arslan Funes M.D. Admit Date: 05/15/2014 Dict.: Arslan Funes M.D. Disch. Date: REASON FOR ADMISSION: Acute opiate withdrawal. CHIEF COMPLAINT AND BRIEF HISTORY OF PRESENT ILLNESS: This is a very pleasant 33 year female who was recently at [facility] in the [facility] for symptoms of acute opiate withdrawal, who relapsed and was using IV heroin again and was subsequently readmitted with symptoms of acute withdrawal. She last used heroin on the day before admission and she was complaining of cramps, diarrhea, clamminess, nausea, some dry heaves and muscle pain. She also had some goose bumps, nasal congestion, tremors, restlessness, tearing and yawning. Since admission she has been started on a Methadone taper and her symptoms are significantly improved. No other complaints at this time. ALLERGIES: Amoxicillin and Imitrex. MEDICATIONS AT HOME: 1. Thorazine. 2. Wellbutrin. 3. Depakote. 4. Valium. PAST MEDICAL HISTORY: Bipolar affective disorder. SOCIAL HISTORY: She does not smoke or drink. FAMILY HISTORY: Noncontributory. REVIEW OF SYSTEMS: She denies fever, ear or throat pain, neck pain or stiffness, chest pain or shortness of breath, constipation, focal weakness or paresthesias, leg swelling, skin rashes or headache. PHYSICAL EXAMINATION: Vital signs: Temperature was 97.4, pulse 82, respirations 16, blood pressure 126/84, satting 97% on room air. In general she appears in no acute distress. Respirations are not labored. HEENT: Sclerae are nonicteric. Oropharynx is dry. Neck is supple with no adenopathy or thyromegaly. Heart is a regular rhythm without murmurs. Lungs are clear anteriorly without wheezes or crackles. Abdominal examination: Belly is soft and nontender with no obvious hepatosplenomegaly. Extremity examination: No clubbing, cyanosis or edema. Neurologically she is alert, appropriate. Her speech is clear. She can move all four extremities without difficulty. LABORATORY AND XRAY: Coagulation studies were normal. White count cell count 9, hemoglobin 12, hematocrit 38, platelets 314, sodium 140, potassium 3.1, chloride 103, bicarb 27, creatinine 0.9, BUN 9, glucose 94, liver function tests were normal. Amylase and lipase were normal. Ethanol level was undetectable. test was negative. ASSESSMENT: Acute opiate withdrawal. PLAN: Continue medical stabilization on the [facility]. She remains stable at this time, will monitor her symptoms and also continue her bipolar medications. Further disposition to follow. Arslan Funes M.D. ESSIE/yvette TD: 05/16/2014 08:27 Electronically Authenticated by: Arslan Funes MD On 05/16/2014 03:08 PM PARTY COORDINATOR documented in this encounter Plan of Treatment Not on file documented as of this encounter Procedures Procedure Name Priority Date/Time Associated Diagnosis Comments DISCHARGE LABORATORY CUMULATIVE REPORT 05/18/2014 SERUM ETHANOL Routine 05/15/2014 4:23 PM PARTY COORDINATOR PLASMA PROTHROMBIN TIME (PT) Routine 05/15/2014 4:23 PM PARTY COORDINATOR PLASMA PARTIAL THROMBOPLASTIN TIME (PTT) Routine 05/15/2014 4:23 PM PARTY COORDINATOR PLASMA LIPASE Routine 05/15/2014 4:23 PM PARTY COORDINATOR PLASMA COMPREHENSIVE METABOLIC PANEL Routine 05/15/2014 4:23 PM PARTY COORDINATOR PLASMA AMYLASE Routine 05/15/2014 4:23 PM PARTY COORDINATOR BLOOD CELL COUNT (CBC), MORPHOLOGIC EXAM Routine 05/15/2014 4:23 PM PARTY COORDINATOR URINE DRUG SCREEN Routine 05/15/2014 3:5 1 PM PARTY COORDINATOR URINE CHORIONIC GONADOTROPIN (HCG) Routine 05/15/2014 3:51 PM PARTY COORDINATOR documented in this encounter Results * DISCHARGE LABORATORY CUMULATIVE REPORT (05/18/2014) Narrative 05/18/2014 Ordered by an unspecified provider. us Historical Provider LAB BLOOD ORDERABLES Rachna reina Result * (ABNORMAL) Blood cell count (CBC), morphologic exam (05/15/2014 4:23 PM PARTY COORDINATOR) Rdw 14.8(H) 11.5 - 14.5 % HISTORICAL RESULTS WBC 9.0 3.8 - 9.8 K/cumm HISTORICAL RESULTS MPV 9.9 8.6 - 12.6 fl HISTORICAL RESULTS RBC 4.88 4.20 - 5.20 M/cumm HISTORICAL RESULTS Neutrophils 71.7 42.0 - 85.0 % HISTORICAL RESULTS Hgb 12.9 12.0 - 15.0 g/dl HISTORICAL RESULTS Neutrophils, abs 6.5 2.1 - 8.5 K/cumm HISTORICAL RESULTS Hct 38.7 37.0 - 47.0 % HISTORICAL RESULTS Lymphocytes 20.2 16.0 - 52.0 % HISTORICAL RESULTS MCV 79.3(L) 82.0 - 96.0 fl HISTORICAL RESULTS Lymphocytes, abs 1.8 0.8 - 5.2 K/cumm HISTORICAL RESULTS MCH 26.4(L) 27.0 - 32.0 pg HISTORICAL RESULTS Monos 3.7 1.0 - 13.0 % HISTORICAL RESULTS MCHC 33.3 29.0 - 35.0 g/dl HISTORICAL RESULTS Monocytes, absolute 0.3 0.0 - 1.3 K/cumm HISTORICAL RESULTS Platelets 314 150 - 450 K/cumm HISTORICAL RESULTS Eosinophils 3.9 0.0 - 7.0 % HISTORICAL RESULTS RDW 42.7 36.4 - 46.3 fl HISTORICAL RESULTS Eosinophils, abs 0.4 0.0 - 0.7 K/cumm HISTORICAL RESULTS Basophils 0.2 0.0 - 4.0 % HISTORICAL RESULTS Basophils, abs 0.0 0.0 - 0.4 K/cumm HISTORICAL RESULTS Young granulocytes, % 0.3 0.0 - 1.0 % HISTORICAL RESULTS Young granulocyte 0.03 0.00 - 0.10 K/cumm HISTORICAL RESULTS NRBC 0.0 0.0 - 0.2 #/100 WBC HISTORICAL RESULTS NRBC, abs 0.00 0.00 - 0.01 K/cumm HISTORICAL RESULTS Blood specimen (specimen) 05/15/2014 4:23 PM PARTY COORDINATOR us Arslan Funes MD LAB BLOOD ORDERABLES Final Resu lt HISTORICAL RESULTS * Plasma prothrombin time (PT) (05/15/2014 4:23 PM PARTY COORDINATOR) Prothrombin time (PT) 13.4 11.5 - 15.5 seconds HISTORICAL RESULTS INR 0.98 0.81 - 1.21 HISTORIC AL RESULTS Plasma 05/15/2014 4:23 PM PARTY COORDINATOR Arslan Funes MD LAB BLOOD ORDERABLES Final Resu lt Performing Organization Address [facility] de Phone Number HISTORICAL RESULTS * Plasma partial thromboplastin time (PTT) (05/15/2014 4:23 PM PARTY COORDINATOR) APTT 29.8 21.5 - 39.0 seconds HISTORICAL RESULTS Plasma 05/15/2014 4:23 PM PARTY COORDINATOR Arslan Funes MD LAB BLOOD ORDERABLES Final Resu lt Performing Organization Address [facility] de Phone Number HISTORICAL RESULTS * Serum ethanol (05/15/2014 4:23 PM PARTY COORDINATOR) Ethanol, sr Absent 0 - 0 mg/dl HISTOR ICAL RESULTS Serum 05/15/2014 4:23 PM PARTY COORDINATOR Arslan Funes MD LAB BLOOD ORDERABLES Final Resu lt Performing Organization Address [facility] de Phone Number HISTORICAL RESULTS * (ABNORMAL) Plasma comprehensive metabolic panel (05/15/2014 4:23 PM PARTY COORDINATOR) BUN 9 8 - 24 mg/dl HISTORICAL RESULTS Glucose 93 70 - 199 mg/dl HISTORICAL RESULTS Sodium 140 135 - 145 mmol/L HISTORICAL RESULTS K, pl 3.1(L) 3.5 - 5.1 mmol/L HISTORICAL RESULTS Chloride 103 100 - 114 mmol/L HISTORICAL RESULTS CO2 27 22 - 32 mmol/L HISTORICAL RESULTS Creatinine 0.90 0.60 - 1.30 mg/dl HISTORICAL RESULTS AST 20 7 - 40 Units/L HISTORICAL RESULTS ALT 20 1 - 45 Units/L HISTORICAL RESULTS Alk phos 74 30 - 110 Units/L HISTORICAL RESULTS Calcium 9.2 8.4 - 10.5 mg/dl HISTORICAL RESULTS Bilirubin 0.70 0.10 - 1.30 mg/dl HISTORICAL RESULTS Protein, pl 7.3 6.0 - 8.3 g/dl HISTORICAL RESULTS Alb 3.8 3.2 - 4.8 g/dl HISTORICAL RESULTS Globulin 3.5 2.0 - 4.3 g/dl HISTORICAL RESULTS A. gap 13 8 - 16 mmol/L HISTORICAL RESULTS eGFR 72 90 - 200 ml/min/1.7 3 m2 HISTORICAL RESULTS Comment: If this individual is -German, multiply result by 1.21 Repeated results of less than 60 is indicative of chronic kidney disease. MDRD formula has not been validated on individuals greater than 70 years old. Plasma 05/15/2014 4:23 PM PARTY COORDINATOR Result [facility] Arslan Funes MD LAB BLOOD ORDERABLES Final Resu lt Performing Organization Address [facility] Phone Number HISTORICAL RESULTS * Plasma lipase (05/15/2014 4:23 PM PARTY COORDINATOR) Lip 21 20 - 50 Units/L HISTORICAL RESULTS Plasma 05/15/2014 4:23 PM PARTY COORDINATOR Result [facility] Arslan Funes MD LAB BLOOD ORDERABLES Final Resu lt Performing Organization Address [facility] Phone Number HISTORICAL RESULTS * Plasma amylase (05/15/2014 4:23 PM PARTY COORDINATOR) Sherri, pl 40 28 - 100 Units/L HISTORICAL RESULTS Plasma 05/15/2014 4:23 PM PARTY COORDINATOR Result [facility] Arslan Funes MD LAB BLOOD ORDERABLES Final Resu lt Performing Organization Address [facility] Phone Number HISTORICAL RESULTS * Urine chorionic gonadotropin (HCG) (05/15/2014 3:51 PM PARTY COORDINATOR) HCG, ur Negative HISTORICAL RESULTS Specific gravity, ur 1.023 HISTORICAL RESULTS Urine 05/15/2014 3:5 1 PM PARTY COORDINATOR Result [facility] Arslan Funes MD LAB BLOOD ORDERABLES Final Resu lt Performing Organization Address [facility] de Phone Number HISTORICAL RESULTS * (ABNORMAL) Urine drug screen (05/15/2014 3:51 PM PARTY COORDINATOR) Amphetamine, ur Negative Negative HISTORICAL RESULTS Barbiturates, ur Negative Negative HISTORICAL RESULTS Benzodiazepine s, ur Negative Negative HISTORICAL RESULTS Cocaine, ur Negative Negative [...] RESULTS Concentration, ur Average HISTORICAL RESULTS Urine 05/15/2014 3:51 PM PARTY COORDINATOR us Arslan Funes MD LAB BLOOD ORDERABLES Final Resu lt HISTORICAL RESULTS documented in this encounter Visit Diagnoses Diagnosis Drug withdrawal (HCC) Drug withdrawal Opioid type dependence, abuse (HCC) Opioid type dependence, unspecified abuse Bipolar affective disorder (HCC) Bipolar disorder, unspecified documented in this encounter
--- OUTSIDE RECORDS SUMMARY | 2024-03-13 02:23 | XMS_ITS | Encounter Summary ---
Author Organization [facility] Medical Group Address [address] [place] [address] Care Team Providers Care Human Development Professor Name Role Phone No, Physician Primary Care Provider [phone] Encounter Details Date Type Department Care Team (Late st Contact Info) Description 06/30/[address] [facility] Medical Group Cardiology [address] [place] [address] Ronny Barrientos MD [facility] [place] [id number] Social History Tobacco Use Types Packs/Day Years [...] often do you attend chur ch or confucianism services? Patient declined 07/05/2022 Do you belong to any clubs o r organizations such as faith groups, unions, fraternal or athletic groups, or [...] in a senior care (including now)? 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
--- OUTSIDE RECORDS SUMMARY | 2024-03-13 02:23 | XMS_ITS | Encounter Summary ---
Author Organization [facility] Healthcare Address [address] [place] [address] Care Team Providers Care Pie Icer Machine Name Role Phone Unavailable Primary Care Provider Unavailabl e Reason for Visit * Reason Comments Multiple Medical Complaints I'm short of breath, heart racing, lump on the bottom of my gum. Encounter Details Date Type Department Care Team (Late st Contact Info) Description 02/28/2020 7:05 PM CHIEF MECHANICAL OFFICER - 02/29/2020 6:37 AM [facility] Emergency [facility] Emergency Department [address] [place] [address] [place] [phone] [address] Palpitations (Primary Dx); Shortness of breath Discharge Disposition: Discharge to home or self care Social History Tobacco Use Types Packs/Day Years Used Date Smoking Tobacco: Never Smokeless Tobacco: Never Alcohol Use Standard Drinks/Week Comments Not Currently 0 (1 standard drink = 0.6 oz pur e alcohol) Comments No Sex and Gender Information Value Date Recorded Sex Assigned at Not on file Legal Sex Female 3:16 AM CHIEF MECHANICAL OFFICER Gender Identity Not on file Sexual Orientation Not on file documented as of this encounter Last Filed Vital Signs Vital Sign Reading Time Taken Comments Blood Pressure 155/97 02/29/2020 3:40 AM CHIEF MECHANICAL OFFICER Pulse 93 02/29/2020 6:20 AM CHIEF MECHANICAL OFFICER Temperature 37.2 ??C (98.9 ??F) 02/28/2020 7:02 PM CS T Respiratory Rate 20 02/29/2020 6:20 AM CHIEF MECHANICAL OFFICER Oxygen Saturation 96% 02/29/2020 3:52 AM CHIEF MECHANICAL OFFICER Inhaled Oxygen Concentration - - Weight 72.6 kg (160 lb) 02/28/2020 7:02 PM CHIEF MECHANICAL OFFICER Height 165.1 cm (5' 5 ) 02/28/2020 7:02 PM CHIEF MECHANICAL OFFICER Body Mass Index 26.63 02/28/2020 7:02 PM CHIEF MECHANICAL OFFICER documented in this encounter Discharge Diagnoses Diagnosis Palpitations - PALPITATIONS Shortness of breath - SHORTNESS OF BREATH Essential (primary) hypertension - ESSENTIAL (PRIMARY) HYPERTENSION Unspecified essential hypertension Bipolar disorder, unspecified (HCC) - BIPOLAR DISORDER, UNSPECIFIED Bipolar disorder, unspecified Anxiety disorder, unspecified - ANXIETY DISORDER, UNSPECIFIED documented in this encounter Discharge Instructions * Discharge Instructions* Donna Cabral MD - 02/29/2020 5:51 AM CHIEF MECHANICAL OFFICER Please follow up with your primary care physician in the next week for re- evaluation and further management including resuming your blood pressure medication. Please understand that this Emergency Department visit is NOT COMPLETE without outpatient follow up to fully review your ED results and to re assess your condition. Return to the ED for prompt re-evaluation if you experience new, worsening, or persistent symptoms including but not limited to: chest pain, shortness of breath or respiratory difficulties, dizzinessor fainting, behavioral changes or altered mental status, fever, focal numbness/tingling or weakness, severe nausea or vomiting, abdominal pain, other uncontrolled pain, or other concerns On behalf of [facility], thank you for allowing us to participate in your medical care. F MECHANICAL OFFICER * Attachments The following attachments cannot be sent through Care Everywhere. * Heart Palpitations (AfterCare(R) Instructions(ER/ED)) (British) documented in this encounter Medications at Time [...] documented in this encounter ED Notes * Donna Cabral MD - 02/29/2020 12:30 AM CST HPI Chief Complaint Patient presents with ??? Multiple Medical Complaints I'm short of breath, heart racing, lump on the bottom of my gum. 39yo F with h/o HTN, anxiety, bipolar disorder, noncompliant w/ medications p/w palpitations and SOB for the past day. Pt states that last night, she had an argument with her ex- because he would not let her put their son's cellphone on her plan because he doesn't like me having control of anything . She states that she was feeling somewhat anxious about this. Today, she states that she was lying in bed when the SOB and palpitations started, which she describes feels like heart racing. Denies CP, MCRAE, numbness/weakness. Endorses nausea w/o vomiting. States the sx come and go, lasting 10-60mins at a time. She states that she used to take an anxiety medication but has not been on it since she last saw her PCP, 2 years ago. She is also noted to be quite hypertensive and states that she stopped taking her BP meds 2 years ago as well. She states she is not taking any medication currently. Denies recent immobility/surgery, prior VTE, calf pain/swelling, exogenous hormones. Pt denies recent use of drugs or etoh. 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 On ROS, pt also notes a loose tooth (bottom incisor), and cold sore to L lower inner lip. Review of Systems Constitutional: denies fever ENT: denies URI sx Eyes: denies vision changes Respiratory: see hpi Cardiovascular: see hpi GI: denies abd pain, N/V : denies dysuria MSK: denies myalgias Neuro: denies MCRAE, numbness/weakness Psych: see hpi Social hx: see hpi Physical Exam Body mass index is 26.63 kg/m??. General: NAD, somewhat anxious appearing HENT: aphthous ulcer R lower buccal mucosa, lose lower incisor Eyes: EOMI CV: regular tachycardia Resp: CTAB Abd: soft, nontender MSK: no gross skeletal deformity, no calf tenderness Derm: no LE edema Neuro: nonfocal, normal mental status Patient History: There are no active problems to display for this patient. Past Medical History: Diagnosis Date ??? Hypertension Past Surgical History: Procedure Laterality Date ??? HYSTERECTOMY History reviewed. No pertinent family history. Social History Tobacco Use ??? Smoking status: Never Smoker ??? Smokeless tobacco: Never Used Substance Use Topics ??? Alcohol use: Not Currently ??? Drug use: Not Currently Social History Social History Narrative ??? Not on file Physical Exam ED Triage Vitals [02/28/20 1902] Temp Pulse Resp BP SpO2 37.2 ??C (98.9 ??F) 115 20 (!) 209/110 100 % Temp src Heart Rate Source Patient Position BP Location FiO2 (%) Oral Monitor Sitting Right arm -- EKG: sinus, rate 119, normal axis, nonischemic MDM Pt w/ palpitations and sob intermittently since yesterday after stressful event. Here is noted to be hypertensive and tachycardic to 110s. Pt noncompliant w/ medications for 2+ years. Given amlodipine and NS. She also requested xanax which was given. On reeval, HR improved to 80s, BP 160/104. Labs notable for trop x2, tsh, bnp wnl. Dimer was elevated; f/u CT chest neg for PE, generalized small airway wall thickening noted. Results d/w pt who is amenable to d/c plan. States she will resume f/u with her prior pcp, a Dr Kashmir Flores and declines referral here Final diagnoses: Palpitations Shortness of breath Donna Cabral MD 02/29/20 0551 F MECHANICAL OFFICER documented in this encounter Plan of Treatment Not on file documented as of this encounter Procedures Procedure Name Priority Date/Time Associated Diagnosis Comments CT CHEST PE W CONTRAST ED 0 4:15 AM CHIEF MECHANICAL OFFICER TROPONIN T, 3 HOUR 5TH GEN Timed 02/29/2020 2:02 AM CHIEF MECHANICAL OFFICER D-DIMER, QUANTITATIVE STAT 02/29/2020 2:02 AM CHIEF MECHANICAL OFFICER XR CHEST 1 VIEW ED 02/28/2020 7:36 PM CHIEF MECHANICAL OFFICER TROPONIN T 5TH GEN SERIES (BASELINE, 3HR, 6HR) STAT 02/28/2020 7:11 PM CHIEF MECHANICAL OFFICER EGFR STAT 02/28/2020 7:11 PM CHIEF MECHANICAL OFFICER DIFFERENTIAL AUTO STAT 02/28/2020 7:1 1 PM CHIEF MECHANICAL OFFICER PRO B-TYPE NATRIURETIC PEPTIDE STAT 02/28/2020 7:11 PM CHIEF MECHANICAL OFFICER THYROID FUNCTION CASCADE Routine 02/28/2020 7:11 PM CHIEF MECHANICAL OFFICER CBC WITH AUTO DIFFERENTIAL STAT 02/28/2020 7:11 PM CHIEF MECHANICAL OFFICER PROTIME-INR STAT 02/28/2020 7:11 PM CHIEF MECHANICAL OFFICER COMPREHENSIVE METABOLIC PANEL STAT 02/28/2020 7:11 PM CHIEF MECHANICAL OFFICER ECG 12-LEAD STAT 02/28/2020 6:59 PM CHIEF MECHANICAL OFFICER documented in this encounter Results * CT Chest PE W Contrast (02/29/2020 4:15 AM CHIEF MECHANICAL OFFICER) Anatomical Region Laterality Modality Body N/A Computed Tomogra phy 02/29/2020 7:19 AM CHIEF MECHANICAL OFFICER Impressions 02/29/2020 7:21 AM CHIEF MECHANICAL OFFICER No evidence of pulmonary emboli. Generalized small airways disease/bronchiolitis. Hepatic steatosis Stat report by [facility] Electronically signed by: Poli Le M.D. Narrative 02/29/2020 7:21 AM CHIEF MECHANICAL OFFICER EXAMINATION: CT CHEST PE W CONTRAST HISTORY: apnea ORDER DATE: 02/29/2020 3:45 AM TECHNIQUE: 2-D CT imaging of the chest is obtained with a pulmonary embolism protocol with use of 100 mL of Optiray 350 COMPARISON: SC XR CHEST 1 VIEW 02/28/2020 7:26 PM FINDINGS: Pulmonary arteries: There are no filling defects in the pulmonary arteries down to the level of the visualized subsegmental arteries. Aorta: Unremarkable. No aortic aneurysm. No aortic dissection. Lungs: Lung windows demonstrate no infiltrate of consolidation.There is generalized small airways disease with wall thickening. Pleural space: Unremarkable. No pneumothorax. No pleural effusion. Heart: Unremarkable. No cardiomegaly. No pericardial effusion. Lymph nodes: Unremarkable. No enlarged lymph nodes. Liver: There is a diffuse decrease in hepatic parenchymal density, consistent with fatty infiltration. Bones/joints: Unremarkable. No acute fracture. Soft tissues: Unremarkable. Procedure Note Poli Le MD - 02/29/2020 EXAMINATION: CT CHEST PE W CONTRAST HISTORY: apnea ORDER DATE: 02/29/2020 3:45 AM TECHNIQUE: 2-D CT imaging of the chest is obtained with a pulmonary embolism protocol with use of 100 mL of Optiray 350 COMPARISON: SC XR CHEST 1 VIEW 02/28/2020 7:26 PM FINDINGS: Pulmonary arteries: There are no filling defects in the pulmonary arteries down to the level of the visualized subsegmental arteries. Aorta: Unremarkable. No aortic aneurysm. No aortic dissection. Lungs: Lung windows demonstrate no infiltrate of consolidation.There is generalized small airways disease with wall thickening. Pleural space: Unremarkable. No pneumothorax. No pleural effusion. Heart: Unremarkable. No cardiomegaly. No pericardial effusion. Lymph nodes: Unremarkable. No enlarged lymph nodes. Liver: There is a diffuse decrease in hepatic parenchymal density, consistent with fatty infiltration. Bones/joints: Unremarkable. No acute fracture. Soft tissues: Unremarkable. IMPRESSION: No evidence of pulmonary emboli. Generalized small airways disease/bronchiolitis. Hepatic steatosis Stat report by [facility] Electronically signed by: Poli Le M.D. Donna Cabral MD IM CT PROCEDURES Rachna l Result * (ABNORMAL) D-dimer, quantitative (02/29/2020 2:02 AM CHIEF MECHANICAL OFFICER) D-Dimer 1,112(H) <=499 ng/mL FEU [facility] Comment: Interpretive data FDA approved the D-dimer, in conjunction with a low or moderate pretest probability score, to exclude venous thromboembolic events (VTE) (PE and DVT) in outpatients when the D-dimer result is < 500 ng/ml FEU. ?? Evidence supports using an age-adjusted D-dimer cut-off for outpatients older than 50 (age x 10) to improve specificity without sacrificing sensitivity. Example: age 68, VTE cut-off 680 ng/ml FEU. References; Schouten HT et al. Brit Med J. 2013;346:f2492. Kristine et al. Annals Int Med. 2015;163:701-11. Current interpretive data was last revised on 2019. Blood specimen (specimen) 02/29/2020 2:02 AM CHIEF MECHANICAL OFFICER 02/29/2020 2:25 AM CHIEF MECHANICAL OFFICER Donna Cabral MD LAB BLOOD ORDERABLES F inal Result Performing Organization Address [facility] Co de Phone Number [facility] [address] [address] Department [place] [address] * Troponin T, 3 Hour 5th Gen (02/29/2020 2:02 AM CHIEF MECHANICAL OFFICER) Troponin T, 3 Hr 5th Gen <6 6 - 14 ng/L [facility] Troponin T, 3 Hr Delta 0 ng/L [facility] Blood specimen (specimen) 02/29/2020 2:02 AM CHIEF MECHANICAL OFFICER 02/29/2020 2:26 AM CHIEF MECHANICAL OFFICER Mikael Sy MD LAB BLOOD ORDERABLES Final Result Performing Organization Address [facility] Co de [place] [place] [address] [address] Department [place] [address] * XR Chest 1 Vw Portable (02/28/2020 7:36 PM CHIEF MECHANICAL OFFICER) Anatomical Region Laterality Modality Body, Chest N/A Computed Radiogr aphy 02/28/2020 10:3 2 PM CHIEF MECHANICAL OFFICER Impressions 02/28/2020 10:32 PM CHIEF MECHANICAL OFFICER Negative study. Electronically signed by: Cuauhtemoc Leo M.D. Narrative 02/28/2020 10:32 PM CHIEF MECHANICAL OFFICER EXAMINATION: XR CHEST 1 VIEW HISTORY: The [...] MD IMG XR PROCEDURES Rachna l Result * TSH reflex to free T4 (02/28/2020 7:11 PM CHIEF MECHANICAL OFFICER) TSH 0.36 0.30 - 4.20 mcIUnit/mL [facility] Blood specimen (specimen) 02/28/2020 7:11 PM CHIEF MECHANICAL OFFICER 02/29/2020 12:28 AM CHIEF MECHANICAL OFFICER Donna Cabral MD LAB BLOOD ORDERABLES F inal Result Performing Organization Address City/State/[facility] Co de Phone Number [facility] [address] [address] Department [place] [address] * eGFR (02/28/2020 7:11 PM CHIEF MECHANICAL OFFICER) eGFR 94 mL/min/1.7 3 m2 [facility] Comment: Interpretive Data Reference Interval Normal ?>/= 90 mL/min/1.73m2 Mildly decreased* ? 60 - 89 mL/min/1.73m2 Mildly to moderately decreased ?45 - 59 mL/min/1.73m2 Moderately to severely decreased ??30 - 44 mL/min/1.73m2 Severely decreased ?15 - 29 mL/min/1.73m2 Kidney Failure ?< 15 ??mL/min/1.73m2 *Relative to young adult level If -Salvadorean multiply value by 1.16. Estimated glomerular filtration [...] was last reviewed 2015. Blood specimen (specimen) 02/28/2020 7:11 PM CHIEF MECHANICAL OFFICER 02/28/2020 7:54 PM CHIEF MECHANICAL OFFICER us Donna Cabral MD LAB BLOOD ORDERABLES F inal Result [facility] [address] [address] Department [place] [address] * (ABNORMAL) Differential, auto (02/28/2020 7:11 PM CHIEF MECHANICAL OFFICER) Neutrophil abs 13.0(H) 1.7 - 6.5 K/cumm [facility] Imm gran abs 0.1 0.0 - 0.1 K/cumm [facility] Lymphocyte abs 0.9 0.8 - 3.3 K/cumm [facility] Monocyte abs 0.2 0.2 - 0.8 K/cumm [facility] Eosinophil abs 0.0 0.0 - 0.5 K/cumm [facility] Basophil abs 0.0 0.0 - 0.1 K/cumm [facility] Neutrophil pct 91.3 % [facility] Comment: Interpretive Data Percent cell count reference ranges are not reported, since discordance with absolute values may lead to misinterpretation of CBC data. Current Interpretive Data was last revised on 2017. Imm gran pct 0.6 % [facility] Comment: Interpretive Data Percent cell count reference ranges are not reported, since discordance with absolute values may lead to misinterpretation of CBC data. Current Interpretive Data was last revised on 2017. Lymphocyte pct 6.1 % [facility] Comment: Interpretive Data Percent cell count reference ranges are not reported, since discordance with absolute values may lead to misinterpretation of CBC data. Current Interpretive Data was last revised on 2017. Monocyte pct 1.7 % [facility] Comment: Interpretive Data Percent cell count reference ranges are not reported, since discordance with absolute values may lead to misinterpretation of CBC data. Current Interpretive Data was last revised on 2017. Eosinophil pct 0.1 % [facility] Comment: Interpretive Data Percent cell count reference ranges are not reported, since discordance with absolute values may lead to misinterpretation of CBC data. Current Interpretive Data was last revised on 2017. Basophil pct 0.2 % [facility] Comment: Interpretive Data Percent cell count reference ranges are not reported, since discordance with absolute values may lead to misinterpretation of CBC data. Current Interpretive Data was last revised on 2017. Blood specimen (specimen) 02/28/2020 7:11 PM CHIEF MECHANICAL OFFICER 02/28/2020 7:51 PM CHIEF MECHANICAL OFFICER Donna Cabral MD LAB BLOOD ORDERABLES F inal Result [facility] [address] [address] Department [place] [address] * (ABNORMAL) Protime-INR (02/28/2020 7:11 PM CHIEF MECHANICAL OFFICER) PT 14.2(H) 9.5 - 13.0 sec [facility] INR 1.2 0.9 - 1.2 [facility] Comment: Interpretive data Oral anticoagulant therapeutic ranges: Venous thromboembolism prophylaxis or treatment: 2.0-3.0 CARDIOLOGY Standard range: 2.0-3.0 High-intensity range: 2.5-3.5 Refer to indication-specific guidelines for appropriate target ranges for prosthetic heart valve replacement. Current interpretive data was last revised on 2019. Blood specimen (specimen) 02/28/2020 7:11 PM CHIEF MECHANICAL OFFICER 02/28/2020 7:51 PM CHIEF MECHANICAL OFFICER Donna Cabral MD LAB BLOOD ORDERABLES F inal Result Performing Organization Address City/[facility]/ZIP Co de Phone Number [facility] [address] [address] [employer] [address] [place] [address] * Troponin T 5th Gen series (Baseline, 3hr, 6hr) (02/28/2020 7:11 PM CHIEF MECHANICAL OFFICER) Pathologist [facility] Troponin T, Baseline 5th Gen <6 6 - 14 ng/L [facility] Blood specimen (specimen) 02/28/2020 7:11 PM CHIEF MECHANICAL OFFICER 02/28/2020 7:51 PM CHIEF MECHANICAL OFFICER us Donna Cabral MD LAB BLOOD ORDERABLES F inal Result Performing Organization Address [facility] Co de Phone Number [facility] [address] [address] [employer] [address] [place] [address] * Pro B-type natriuretic peptide (02/28/2020 7:11 PM CHIEF MECHANICAL OFFICER) Pathologist [facility] NT-proBNP 146 <=300 pg/mL [facility] Comment: Interpretive Comments: A. Dyspnea in Acute Care Setting All Ages: ?< 300 pg/ml, acute heart failure unlikely. < 50 yrs: ?300 - 450 pg/ml, further investigation warranted. ? > 450 pg/ml, acute heart failure likely. 50 - 74 yrs: ? 300 - 900 pg/ml, further investigation warranted. ? > 900 pg/ml, acute heart failure likely . > or = 75 yrs: ? 450 - 1800 pg/ml, further investigation warranted. ? > 1800 pg/ml, acute heart failure likely. B. Non-acute Setting < 75 yrs ? < 125 pg/ml, rules out heart failure. ? > or = 125 pg/ml, further investigation warranted. > or = 75 yrs ?< 450 pg/ml, rules out heart failure. ? > or = 450 pg/ml, further investigation warranted. - Knowledge of each individual patient's NT-proBNP range may be more useful than using similar cut-points for every patient. Please note that marked elevations in NT-proBNP levels may be observed in state other than Left Ventricular Congestive Failure, including: acute coronary syndromes, right heart strain/failure (including pulmonary embolism and cor pulmonale), critical illness, renal failure, as well as advanced age. - References: 1. Shelli PINEDA et.al. Eur Heart J. 2006:27:330-337. 2. Meg RW, Evelina CALDERON. J. AM Rachel Cardiol: Cardiovasc Imag. 2009;2: 216- 225. Interpretive Data Last Revised Date: 2017. Blood specimen (specimen) 02/28/2020 7:11 PM CHIEF MECHANICAL OFFICER 02/28/2020 7:51 PM CHIEF MECHANICAL OFFICER us Donna Cabral MD LAB BLOOD ORDERABLES F inal Result [facility] [address] [address] Department [place] [address] * (ABNORMAL) Comprehensive metabolic panel (02/28/2020 7:11 PM CHIEF MECHANICAL OFFICER) Sodium 139 135 - 145 mmol/L [facility] Potassium, pl 3.8 3.3 - 4.9 mmol/L [facility] Chloride 105 97 - 110 mmol/L [facility] CH CO2 20(L) 22 - 32 mmol/L [facility] Anion gap 14 2 - 15 mmol/L [facility] BUN 14 8 - 25 mg/dL [facility] Creatinine 0.79 0.60 - 1.10 mg/dL [facility] Glucose 142 70 - 199 mg/dL [facility] Comment: Interpretive Data Fasting glucose >/= 126 [...] interpretive data was last revised 2017. Calcium 9.4 8.5 - 10.3 mg/dL [facility] Bilirubin, total 0.4 0.1 - 1.2 mg/dL [facility] CH Protein, pl 8.0 6.5 - 8.5 g/dL [facility] CH Albumin 4.4 3.5 - 5.0 g/dL [facility] CH Alk phos 84 40 - 130 Units/L [facility] ALT 13 7 - 45 Units/L [facility] CH AST 20 10 - 45 Units/L [facility] Blood specimen (specimen) 02/28/2020 7:11 PM CHIEF MECHANICAL OFFICER 02/28/2020 7:51 PM CHIEF MECHANICAL OFFICER us Donna Cabral MD LAB BLOOD ORDERABLES F inal Result [facility] [address] [address] Department [place] [address] * (ABNORMAL) CBC with auto differential (02/28/2020 7:11 PM CHIEF MECHANICAL OFFICER) WBC 14.3(H) 3.8 - 9.9 K/cumm [facility] CH Hgb 13.8 11.9 - 15.5 g/dL [facility] CH Hct 40.7 35.6 - 45.5 % [facility] CH Plt 372 150 - 400 K/cumm [facility] CH MPV 10.0 9.1 - 12.3 fL [facility] CH RBC 5.00 3.90 - 5.20 M/cumm [facility] CH MCV 81.4 81.3 - 96.4 fL [facility] CH MCH 27.6 27.1 - 33.3 pg [facility] CH MCHC 33.9 32.3 - 35.7 g/dL [facility] CH RDW CV 13.6 11.1 - 14.9 % [facility] CH RDW SD 39.8 35.7 - 48.1 fL [facility] CH NRBC abs 0.00 0.00 - 0.01 K/cumm [facility] Blood specimen (specimen) 02/28/2020 7:11 PM CHIEF MECHANICAL OFFICER 02/28/2020 7:51 PM CHIEF MECHANICAL OFFICER Donna Cabral MD LAB BLOOD ORDERABLES F inal Result Performing Organization Address City/[facility]/ZIP Co de Phone Number [facility] [address] [address] Department [place] [address] * ECG 12 lead (02/28/2020 6:59 PM CHIEF MECHANICAL OFFICER) 02/28/2020 6:59 PM CHIEF MECHANICAL OFFICER Narrative [facility] - 02/29/2020 1:06 PM CHIEF MECHANICAL OFFICER Vent Rate: 119 bpm RR Interval: 503 msec LA Interval: 146 msec QRS Duration: 88 msec QT Interval: 338 msec QTC Interval: 409 msec P-R-T [place]: 33 - 7 - 47 degrees SINUS TACHYCARDIA ABNORMAL RHYTHM ECG Electronically Signed By: Makenzie Saez MD Donna Cabral MD ECG ORDERABLES Final Result Performing Organization Address [facility] de Phone Number [facility] [employer] [facility] documented in this encounter Visit Diagnoses Diagnosis Palpitations- Primary Shortness of breath documented in this encounter Administered Medications Inactive Administered Medications - up to 3 most recent administrations Medication Order MAR Action Action Date Dose Rate Site acetaminophen (TYLENOL) tablet 650 mg 650 mg, oral, Once, On Tue02/29/20 at 0348, For 1 dose Given 02/29/2020 3:50 AM CHIEF MECHANICAL OFFICER 650 mg ALPRAZolam (XANAX) tablet 0.5 mg 0.5 mg, oral, Once, On Tue02/29/20 at 0020, For 1 dose Given 02/29/2020 2:00 AM CHIEF MECHANICAL OFFICER 0.5 mg amLODIPine (NORVASC) tablet 10 mg 10 mg, oral, Once, On Tue02/29/20 at 0020, For 1 dose Given 02/29/2020 2:01 AM CHIEF MECHANICAL OFFICER 10 mg ioversoL (OPTIRAY 350) syringe syringe 100 mL 100 mL, intravenous, Once in imaging, contrast, Starting on Tue02/29/20 at 0359, For 1 dose Given 02/29/2020 4:01 AM CHIEF MECHANICAL OFFICER 100 mL sodium chloride 0.9% bolus 1,000 mL 1,000 mL, intravenous, Once, On Tue02/29/20 at 0017, For 1 dose New Bag 02/29/2020 2:01 AM CHIEF MECHANICAL OFFICER 1,000 mL documented in this encounter Active and Recently Administered Medications Times are shown in CHIEF MECHANICAL OFFICER. Scheduled Medication Order 02/27/2020 02/28/2020 02/29/2020 acetaminophen (TYLENOL) tablet 650 mg (COMPLETED) 650 mg, oral, Once, On Tue02/29/20 at 0348, For 1 dose 0350 (Given - Provid er: Snow Bolanos RN) ALPRAZolam (XANAX) tablet 0.5 mg (COMPLETED) 0.5 mg, oral, Once, On Tue02/29/20 at 0020, For 1 dose 0200 (Given - Provid er: Snow Bolanos RN) amLODIPine (NORVASC) tablet 10 mg (COMPLETED) 10 mg, oral, Once, On Tue02/29/20 at 0020, For 1 dose 0201 (Given - Provid er: Snow Bolanos RN) sodium chloride 0.9% bolus 1,000 mL (COMPLETED) 1,000 mL, intravenous, Once, On Tue02/29/20 at 0017, For 1 dose 0201 (New Bag - Prov ider: Snow Bolanos RN)[id number] (Stopped - Provider: Snow Bolanos RN) PRN Medication Order 02/27/2020 02/28/2020 02/29/2020 ioversoL (OPTIRAY 350) syringe syringe 100 mL (COMPLETED) 100 mL, intravenous, Once in imaging, contrast, Starting on Tue02/29/20 at 0359, For 1 dose 0401 (Given - Provid er: RT Kimmy) documented in this encounter
--- OUTSIDE RECORDS SUMMARY | 2024-03-13 02:32 | XMS_ITS | Continuity of Care Document ---
Author Organization [facility] Address [address] [place] [address] Phone Care Team Providers Care Operations Liaison Name Role Phone Arslan Funes MD Unavailable Unavailable Advance Directives Directive Yes / No Effective Date File Name No Information Encounters Encounter Description Practice Location Reason(s) For Visit Diagnoses Date Provider Providers Copied on Encounter [facility], [address], [place], [place], [id number], [place] tel:[phone] [facility] No Information Marin Mcdaniels. [address] [place] [address], [address], [place], [place], [id number], [place]. tel:[phone] Family History Family Member Type Diagnosis Age At Onset No Information Payers Payer name Insurance type Covered constitution party ID Authoriza tijulito(s) [employer] HEALTH PLAN CI [id number] Social History Type Description Quantity Date Captured Comments Sex Female Smoking Status No Information Chief Complaint And Reason For Visit No Information Reason For Referral Reason For Referral No Information History Of Present Illness Encounter Date Complaint History Of Prese nt Illness No Information Functional Status Date Functional Assessmen t No Information Instructions Date Instruction Additional Infor mation No Information Assessments Type Assessment Date No Information Patient Care Teams Name Effective Dates (start - stop) Status Members No Information
--- OUTSIDE RECORDS SUMMARY | 2024-03-13 06:31 | XMS_ITS | Encounter Summary ---
Author Organization [facility] Address [address] [place] [address]. [place] [address] [place] [address] Care Team Providers Care Farm Truck Driver Name Role Phone Maritza Lorenzo MD Primary Care Provider Maritza Lorenzo MD Primary Care Provider Encounter Details Date Type Department Care Team (Late st Contact Info) Description 01/03/2015 Emergency [facility] [place] [address] Rigoberto Tao MD [address] [place] [address] [id number] Social History Tobacco Use Types Packs/Day Years [...] spine documented in this encounter Care Teams Farm Truck Driver Relationship Specialty Start Date End Date Maritza Lorenzo MD [address] [place] [address] PCP - General 12/18/15 Maritza Lorenzo MD [address] [place] [address] PCP - General 01/03/15 12/17/15 documented as of this encounter
--- OUTSIDE RECORDS SUMMARY | 2024-03-13 06:31 | XMS_ITS | Clinical Summary ---
Author Organization [facility] Address [address] [place] [address]. [place], [place] [address] [place] [address] Care Team Providers Care Atlassian Administrator Name Role Phone Maritza Lorenzo MD Primary [...] Documents on File Type Date Recorded Patient Lunchroom Worker Expl anation Advance Directives and Living Will [...] 11/07/2012 12:00 AM ADVANCED DIRECTIVES Care Teams Atlassian Administrator Relationship Specialty Start Date End Date Maritza Lorenzo MD [address] [place] [address] PCP - General 12/18/15
--- OUTSIDE RECORDS SUMMARY | 2024-03-13 06:31 | XMS_ITS | Encounter Summary ---
Author Organization [facility] Address [address] [place] [address]. [place], [place] [address] [place] [address] Care Team Providers Care Microstrategy Developer Name Role Phone Maritza Lorenzo MD Primary Care Provider Maritza Lorenzo MD Primary Care Provider Maritza Lorenzo MD Primary Care Provider Encounter Details Date Type Department Care Team (Late st Contact Info) Description 09/25/2014 Abstract [facility] Medical/Surgical [address] [place], [place] [id number] Micheal Do MD Social History Tobacco Use [...] on filedocumented in this encounter Care Teams Microstrategy Developer Relationship Specialty Start Date End Date Maritza Lorenzo MD [address] [place], [place] [phone] PCP - General 12/18/15 Maritza Lorenzo MD [address] [place] [address] PCP - General 01/03/15 12/17/15 Maritza Lorenzo MD [address] [place] [address] PCP - General 02/10/14 01/02/15 documented as of this encounter
--- OUTSIDE RECORDS SUMMARY | 2024-03-13 06:31 | XMS_ITS | Encounter Summary ---
Author Organization [facility] Address [address] [place] [address]. [place], [place] [address] [place] [address] Care Team Providers Care Winder Tender Name Role Phone Maritza Lorenzo MD Primary Care Provider Encounter Details Date Type Department Care Team (Late st Contact Info) Description 12/18/2015 Orders Only [facility] [address] [place] [id number] , Micheal Pelaez MD Social History Tobacco [...] PM CDT) 12/18/2015 3:09 PM CDT Narrative [facility] - 12/18/2015 12:00 AM CDT ? MARGY SALDANA Ordering MD: BRISEYDA SULTANA MD ?? Acct: [id number] ?? Admit/Service Date: 12/18/15 Discharge Date: 12/18/15 ?? : 1980 Pt Type: DEP ER ?? Sex: F Ord Site: [facility] [place] [facility] [place] ?[address], [place], [place] ?Test Date: ?2015-12-18 ?? Pat Name: ? MARGY SALDANA ?Department: CARD ?? 41 ? Room: ? Gender: ? Female ? Police Worker: ?? amt ?? : ?1980 ? Requested By: BRISEYDA TREASTER BRISEYDA TREASTER ?? Order Number: [id number] ?Reading MD: ?? Amalia ??Maryuri ?Measurements ?? Intervals ?[place] ? Rate: ? 104 ?P: ?-1 ?? GA: ? 118 ?QRS: ?6 ?? QRSD: ? 96 ? T: ?22 ?? QT: ? 284 ? QTc: ?375 ?Interpretive Statements ?? SINUS TACHYCARDIA WITH SHORT GA INTERVAL ?? NONSPECIFIC T-WAVE ABNORMALITY ?? ABNORMAL RHYTHM ECG ?? Compared to ECG 02/11/2014 09:35:24 ?? Short GA interval now present ?? Sinus rhythm no longer present ?? T-wave abnormality still present ?? No ischemic changes ?? Preliminary EKG interpretation by ED Physician ?? CRITICAL ALERT ISSUED ON 12-18-2015 15:12:03 ? Procedure Note Amalia Wahl MD - 12/19/2015 MARGY SALDANA Ordering MD: BRISEYDA SULTANA MD Acct: [id number] Admit/Service Date: 12/18/15 Discharge Date: 12/18/15 : 1980 Pt Type: DEP ER Sex: F Ord Site: [address] Test Date: 2015-12-18 Pat Name: MARGY SALDANA Department: CARD 41 Room: Gender: Female Police Worker: amt : 1980 Requested By: BRISEYDA SULTANA Order Number: [id number] Reading MD: Amalia Wahl Measurements Intervals [place] Rate: 104 P: -1 GA: 118 QRS: 6 QRSD: 96 T: 22 QT: 284 QTc: 375 Interpretive Statements SINUS TACHYCARDIA WITH SHORT GA INTERVAL NONSPECIFIC T-WAVE ABNORMALITY ABNORMAL RHYTHM ECG Compared to ECG 02/11/2014 09:35:24 Short GA interval now present Sinus rhythm no longer present T-wave abnormality still present No ischemic changes Preliminary EKG interpretation by ED Physician CRITICAL ALERT ISSUED ON 12-18-2015 15:12:03 us Generic Conversion Md [facility] Final Result [facility] documented in this encounter Visit Diagnoses Not on filedocumented in this encounter Care Teams Winder Tender Relationship Specialty Start Date End Date Maritza Lorenzo MD [address] [place] [address] PCP - General 12/18/15 documented as of this encounter
--- OUTSIDE RECORDS SUMMARY | 2024-03-13 06:31 | XMS_ITS | Encounter Summary ---
Author Organization [facility] Address [address] [place] [address]. [place] [address] [place] [address] Care Team Providers Care Boxing Promoter Name Role Phone Maritza Lorenzo MD Primary Care Provider Encounter Details Date Type Department Care Team (Late st Contact Info) Description 12/18/2015 Emergency [facility] Emergency Room [address] [place], [place] [id number] Chandu Garza MD [address] [facility] [address] [place], [place] [phone] Social History Tobacco Use Types Packs/Day Years [...] D-DIMER, QUANTITATIVE (12/18/2015 4:06 PM CDT) Pathologist [facility] [place] D-DIMER 212 0 - 230 ng{D DU}/mL 12/18/2015 4:38 PM CDT [facility] Comment: TESTING PERFORMED ON [employer] ACL TOP 300 ANALYZER. NOTE: RESULTS OF [...] Conversion Md [facility] Final R esult [facility] [address] [place] [address], [place] [phone] * CHORIONIC GONADOTROPINHCG QL (12/18/2015 4:06 PM CDT) Pathologist [facility] [place] PREG SCREEN-SERUM NEGATIVE 12/18/2015 4:41 PM CDT [facility] 12/18/2015 4:06 PM CDT 12/18/2015 4:11 PM CDT us Generic Conversion Md [facility] Final R esult [facility] [address] [place] [address], * TROPONIN, QUANT (12/18/2015 4:06 PM CDT) TROPONIN I <0.30 <0.30 ng/mL 12/18/2015 4:43 PM CDT [facility] SERUM OR PLASMA SPECIMEN / Unknown 12/18/2015 4:06 PM CDT 12/18/2015 4:11 PM CDT us Generic Conversion Md [facility] Final R esult [facility] [address] [place] [address], * CKMB(MB FRACTION ONLY) (12/18/2015 4:06 PM CDT) CK-MB <1.00 <4.30 ng/mL 12/18/2015 4:43 PM CDT [facility] SERUM OR PLASMA SPECIMEN / Unknown 12/18/2015 4:06 PM CDT 12/18/2015 4:11 PM CDT us Generic Conversion Md [facility] Final R esult [facility] [address] [place] [address], * CK (CPK) (12/18/2015 4:06 PM CDT) CPK 42 26 - 192 U/L 12/18/2015 4:42 PM CDT [facility] SERUM OR PLASMA SPECIMEN / Unknown 12/18/2015 4:06 PM CDT 12/18/2015 4:10 PM CDT us Generic Conversion Md [facility] Final R esult [facility] [address] [place] [address], * (ABNORMAL) COMPREHENSIVE METABOLIC PANEL (12/18/2015 4:06 PM CDT) GLUCOSE 147(H) 70 - 99 mg/dL 12/18/2015 4:42 PM CDT [facility] BUN 12 8 - 23 mg/dL 12/18/2015 4:42 PM CDT [facility] CREATININE S/P/B 0.80 0.60 - 1.10 mg/dL 12/18/2015 4:42 PM CDT [facility] SODIUM S/P/B 141 136 - 145 mmol/L 12/18/2015 4:42 PM CDT [facility] POTASSIUM S/P/B 3.0(LL) 3.5 - 5.1 mmol/L 12/18/2015 4:50 PM CDT [facility] CHLORIDE S/P/B 102 98 - 107 mmol/L 12/18/2015 4:42 PM CDT [facility] CO2 24 22 - 29 mmol/L 12/18/2015 4:42 PM CDT [facility] BILIRUBIN TOTAL S/P/B 0.2 0.2 - 1.2 mg/dL 12/18/2015 4:42 PM CDT [facility] CALCIUM S/P/B 9.9 8.6 - 10.2 mg/dL 12/18/2015 4:42 PM CDT [facility] ALKALINE PHOSPHATASE S/P/B 68 35 - 104 U/L 12/18/2015 4:42 PM CDT [facility] AST 17 0 - 32 U/L 12/18/2015 4:42 PM CDT [facility] TOTAL PROTEIN S/P/B 6.9 6.4 - 8.3 g/dL 12/18/2015 4:42 PM CDT [facility] ALBUMIN S/P/B 4.2 3.5 - 5.2 g/dL 12/18/2015 4:42 PM CDT [facility] ALT 32 0 - 33 U/L 12/18/2015 4:42 PM CDT [facility] GLOBULIN 2.7 2.3 - 3.6 g/dL 12/18/2015 4:42 PM CDT [facility] A/G RATIO 1.6 1.0 - 2.0 12/18/2015 4:42 PM CDT [facility] ANION GAP 18 8 - 20 12/18/2015 4:50 PM CDT [facility] EGFR NON-AFR. AMER. >60 >60 mL/min/1.7 3m'2 12/18/2015 4:42 PM CDT [facility] EGFR AFR. AMER. >60 >60 mL/min/1.7 3m'2 12/18/2015 4:42 PM CDT [facility] Comment: NOTE: eGFR is not calculated for patients <18 years of age. This is an estimated GFR (CKD EPI) and should not be used for calculating drug doses. 12/18/2015 4:06 PM CDT 12/18/2015 4:10 PM CDT us Generic Conversion Md [facility] Final R esult [facility] [address] [place] [address], * (ABNORMAL) CBC W/DIFF AUTOMATED (12/18/2015 4:06 PM CDT) WBC 14.6(H) 4.8 - 10.8 X10'3/uL 12/18/2015 4:16 PM CDT [facility] RBC 4.93 4.20 - 5.40 X10'6/uL 12/18/2015 4:16 PM CDT [facility] HGB 13.5 12.0 - 16.0 g/dL 12/18/2015 4:16 PM CDT [facility] HCT 39.4 38.0 - 48.0 % 12/18/2015 4:16 PM CDT [facility] MCV 79.9(L) 81.0 - 99.0 fL 12/18/2015 4:16 PM CDT [facility] MCH 27.4 27.0 - 31.0 pg 12/18/2015 4:16 PM CDT [facility] MCHC 34.3 32.0 - 36.0 g/dL 12/18/2015 4:16 PM CDT [facility] RDW 13.8 11.5 - 14.5 % 12/18/2015 4:16 PM CDT [facility] PLT 357 130 - 400 X10'3/uL 12/18/2015 4:16 PM CDT [facility] MPV 10.6 9.3 - 12.2 fL 12/18/2015 4:16 PM CDT [facility] DIFFERENTIAL TYPE AUTOMATED 12/18/2015 4:16 PM CDT [facility] NEUTROPHILS % 67.1(H) 43.0 - 65.0 % 12/18/2015 4:16 PM CDT [facility] LYMPHOCYTES % 23.7 20.0 - 46.0 % 12/18/2015 4:16 PM CDT [facility] MONOCYTES % 6.7 5.0 - 12.0 % 12/18/2015 4:16 PM CDT [facility] EOSINOPHILS 1.8 1.0 - 3.0 % 12/18/2015 4:16 PM CDT [facility] BASOPHILS 0.3 0.0 - 1.0 % 12/18/2015 4:16 PM CDT [facility] IMMATURE GRANS % 0.4 0.0 - 1.0 % 12/18/2015 4:16 PM CDT [facility] 12/18/2015 4:06 PM CDT 12/18/2015 4:10 PM CDT us Generic Conversion Md [facility] Final R esult [facility] [address] [place] [address], documented in this encounter Visit Diagnoses Diagnosis Chest pain Chest pain, unspecified documented in this encounter Care Teams Boxing Promoter Relationship Specialty Start Date End Date Maritza Lorenzo MD [address] [place] [address] PCP - General 12/18/15 documented as of this encounter
--- OUTSIDE RECORDS SUMMARY | 2024-03-13 06:31 | XMS_ITS | Encounter Summary ---
Author Organization [facility] Address [address] [place] [address]. [place], [place] [address] [place] [address] Care Team Providers Care Follow Up Manager Name Role Phone Maritza Lorenzo MD Primary Care Provider Encounter Details Date Type Department Care Team (Late st Contact Info) Description 01/29/2017 [place] [address] , Generic Conversion, Social History Tobacco Use [...] on filedocumented in this encounter Care Teams Follow Up Manager Relationship Specialty Start Date End Date Maritza Lorenzo MD [address] [place] [address] PCP - General 12/18/15 documented as of this encounter
--- OUTSIDE RECORDS SUMMARY | 2024-03-13 06:31 | XMS_ITS | CONTINUITY OF CARE DOCUMENT ---
Author Name [email or web address] Address Unknown Organization [facility] Address [address] [place] [address] Phone [phone] Care Team Providers Care Planting Machine Crewman Name Role Phone Tyrone GRIER, Mc Unavailable ROMAIN GRIER, JULIENNE Unavailable Unavailable SHANA AGUSTIN MD Unavailable [phone] INSURANCE PROVIDERS Payer name Policy type / Coverage type [place] red libertarian [place] MEDICAID (2) Medicaid [id number]
--- OUTSIDE RECORDS SUMMARY | 2024-03-13 06:31 | XMS_ITS | Encounter Summary ---
Author Organization [facility] Address [address] [place] [address]. [place], [place] [address] [place] [address] Care Team Providers Care Manager Asset Name Role Phone Maritza Lorenzo MD Primary Care Provider Reason for Visit * Reason Comments Wound Infection Encounter Details Date Type Department Care Team (Late st Contact Info) Description 10/01/2018 1:53 PM CDT - 10/01/2018 4:22 PM CDT Emergency [facility] [place] [address] Jcarlos Goyal MD [address] [place] [address] Wound Infection Discharge Disposition: Home or Self [...] CDT Attempted IV x 2 without success forwarder operator notified * Jcarlos Goyal MD - 10/01/2018 [...] history of DM. History provided by: Patient vegetable vendor used: No Medical History ALLERGIES: Allergies Allergen [...] TIBIA+FIBULA LT 2V Final Result by User, [id number] (10/01 1538) Exam: Left lower leg x-ray [...] by the physician. Jcarlos Goyal MD 10/01/18 6615 * Ravi Schuler RN - 10/01/2018 1:14 PM CDT Pt to triage with complaint of worsening wound on her anterior left lower leg. Notes progressively worse over the last 2 weeks. Pt states headache, SOB, HTN, and nausea. Denies cough, fever, sore throat. Open area noted. * Rj Mcmullen PA-C - 10/01/2018 1:14 PM CDT [place], [place] EMERGENCY DEPARTMENT ENCOUNTER Medical Screening Examination [...] BLOOD-PEDIA TRIC VOLUME 10/01/2018 1:15 PM CDT [facility] SPECIAL REQUESTS NO SPECIAL REQUEST 10/01/2018 1:15 PM CDT [facility] CULTURE RESULT NO GROWTH 5 DAYS 10/06/2018 2:42 PM CDT [facility] BLOOD SPECIMEN OBTAINED FOR BLOOD CULTURE / Unknown 10/01/2018 2:39 PM CDT 10/01/2018 2:40 PM CDT us Rj Mcmullen PA-C MICROBIOLOGY - GENERAL ORDERABLES Final Result Performing Organization Address City/[facility]/ZIP Co de Phone Number [facility] [address] [place] [address], [place] [phone] * LACTIC ACID (10/01/2018 2:36 PM CDT) LACTIC ACID VENOUS 1.3 0.4 - 2.0 MMOL/L 10/01/2018 3:10 PM CDT [facility] 10/01/2018 2:36 PM CDT Rj Mcmullen PA-C LABORATORY Final R esult Performing Organization Address City/[facility]/ZIP Co de Phone Number [facility] [address] [place] [address], [place] [phone] * CULTURE, BACTERIA, BLOOD (10/01/2018 2:36 PM CDT) SPEC DESCRIPTION BLOOD-PEDIA TRIC VOLUME 10/01/2018 1:14 PM CDT [facility] SPECIAL REQUESTS NO SPECIAL REQUEST 10/01/2018 1:14 PM CDT [facility] CULTURE RESULT NO GROWTH 5 DAYS 10/06/2018 2:42 PM CDT [facility] BLOOD SPECIMEN OBTAINED FOR BLOOD CULTURE / Unknown 10/01/2018 2:36 PM CDT 10/01/2018 2:39 PM CDT us Rj Mcmullen PA-C MICROBIOLOGY - GENERAL ORDERABLES Final Result [facility] [address] [place] [address], [place] [phone] * (ABNORMAL) COMPREHENSIVE METABOLIC PANEL (10/01/2018 2:36 PM CDT) GLUCOSE 92 70 - 99 MG/DL 10/01/2018 3:10 PM CDT [facility] BUN 13 7 - 18 MG/DL 10/01/2018 3:10 PM CDT [facility] CREATININE S/P/B 0.90 0.55 - 1.02 MG/DL 10/01/2018 3:10 PM CDT [facility] SODIUM S/P/B 136 136 - 145 MMOL/L 10/01/2018 3:10 PM CDT [facility] POTASSIUM S/P/B 3.6 3.5 - 5.1 MMOL/L 10/01/2018 3:10 PM CDT [facility] CHLORIDE S/P/B 103 100 - 108 MMOL/L 10/01/2018 3:10 PM CDT [facility] CO2 30.1 21 - 32 MMOL/L 10/01/2018 3:10 PM CDT [facility] CALCIUM S/P/B 9.3 8.5 - 10.1 MG/DL 10/01/2018 3:10 PM CDT [facility] BILIRUBIN TOTAL S/P/B 0.6 0.2 - 1.2 MG/DL 10/01/2018 3:10 PM CDT [facility] TOTAL PROTEIN S/P/B 8.8(H) 6.4 - 8.2 G/DL 10/01/2018 3:10 PM CDT [facility] ALBUMIN S/P/B 4.3 3.4 - 5.0 G/DL 10/01/2018 3:10 PM CDT [facility] AST 21 15 - 37 U/L 10/01/2018 3:10 PM CDT [facility] ALT 24 14 - 55 U/L 10/01/2018 3:10 PM CDT [facility] ALKALINE PHOSPHATASE S/P/B 92 50 - 136 U/L 10/01/2018 3:10 PM CDT [facility] ANION GAP 2.9(L) 5 - 15 MMOL/L 10/01/2018 3:10 PM CDT [facility] BUN CREATININE RATIO 14.4 6 - 26 10/01/2018 3:10 PM CDT [facility] A/G RATIO 1.0 1.0 - 2.0 RATIO 10/01/2018 3:10 PM CDT [facility] EGFR NON-AFR. AMER. 82(L) >90 ML/MIN/1.7 3 M2 10/01/2018 3:10 PM CDT [facility] EGFR AFR. AMER. >90 >90 ML/MIN/1.7 3 M2 10/01/2018 3:10 PM CDT [facility] Comment: NOTE: eGFR is not calculated for patients <18 years of age. This is an estimated GFR (CKD EPI) and should not be used for calculating drug doses. 10/01/2018 2:36 PM CDT us Rj Mcmullen PA-C LABORATORY Final R esult [facility] [address] [place] [address], * (ABNORMAL) CBC W/DIFF AUTOMATED (10/01/2018 2:36 PM CDT) WBC 10.5 4.5 - 11.0 x10'3/uL 10/01/2018 2:49 PM CDT [facility] RBC 5.16 4.20 - 5.40 x10'6/uL 10/01/2018 2:49 PM CDT [facility] HGB 13.9 12.0 - 16.0 G/DL 10/01/2018 2:49 PM CDT [facility] HCT 43.0 38.0 - 48.0 % 10/01/2018 2:49 PM CDT [facility] MCV 83.3 81.0 - 99.0 FL 10/01/2018 2:49 PM CDT [facility] MCH 26.9(L) 27.0 - 31.0 PG 10/01/2018 2:49 PM CDT [facility] MCHC 32.3 32.0 - 36.0 G/DL 10/01/2018 2:49 PM CDT [facility] RDW 12.5 11.5 - 14.5 % 10/01/2018 2:49 PM CDT [facility] PLT 277 130 - 400 x10'3/uL 10/01/2018 2:49 PM CDT [facility] MPV 9.9 9.3 - 12.2 FL 10/01/2018 2:49 PM CDT [facility] DIFFERENTIAL TYPE AUTOMATED DIFFERENTIAL 10/01/2018 2:49 PM CDT [facility] NEUTROPHILS % 83.1 % 10/01/2018 2:49 PM CDT [facility] LYMPHOCYTES % 9.6 % 10/01/2018 2:49 PM CDT [facility] MONOCYTES % 5.7 % 10/01/2018 2:49 PM CDT [facility] EOSINOPHILS 0.9 % 10/01/2018 2:49 PM CDT [facility] BASOPHILS 0.3 % 10/01/2018 2:49 PM CDT [facility] IMMATURE GRANS % 0.4 % 10/02/19 2:49 PM CDT [facility] ABS. NEUTROPHILS TOTAL 8.73(H) 1.80 - 7.70 x10'3/uL 10/01/2018 2:49 PM CDT [facility] ABS. LYMPHOCYTES 1.01 1.00 - 4.80 x10'3/uL 10/01/2018 2:49 PM CDT [facility] ABS. MONOCYTES 0.60 0.24 - 0.86 x10'3/uL 10/01/2018 2:49 PM CDT [facility] ABS. EOSINOPHILS 0.09 0.04 - 0.36 x10'3/uL 10/01/2018 2:49 PM CDT [facility] ABS. BASOPHILS 0.03 0.01 - 0.08 x10'3/uL 10/01/2018 2:49 PM CDT [facility] ABS. IMMATURE GRANULOCYTES 0.04 0.00 - 0.49 x10'3/uL 10/01/2018 2:49 PM CDT [facility] 10/01/2018 2:36 PM CDT Rj Mcmullen PA-C LABORATORY Final R esult [facility] [address] [place] [address], [place] [phone] documented in this encounter Visit Diagnoses Diagnosis [...] RN) documented in this encounter Care Teams Manager Asset Relationship Specialty Start Date End Date Maritza Lorenzo MD [address] [place] [address] PCP - General 12/18/15 documented as of this encounter
--- OUTSIDE RECORDS SUMMARY | 2024-03-13 06:32 | XMS_ITS | Encounter Summary ---
Author Organization [facility] Address [address] [place] [address]. [place], [place] [address] [place] [address] Care Team Providers Care Graphite Disk Assembler Name Role Phone Maritza Lorenzo MD Primary Care Provider Maritza Lorenzo MD Primary Care Provider Maritza Lorenzo MD Primary Care Provider Encounter Details Date Type Department Care Team (Late st Contact Info) Description 06/13/1999 [place] [address] , Generic MD Benigno Social History Tobacco [...] filedocumented in this encounter Care Teams Graphite Disk Assembler Relationship Specialty Start Date End Date Maritza Lorenzo MD [address] [place] [address] PCP - General 12/18/15 Maritza Lorenzo MD [address] [place] [address] PCP - General 01/03/15 12/17/15 Maritza Lorenzo MD [address] [place] [address] PCP - General 02/10/14 01/02/15 documented as of this encounter
--- OUTSIDE RECORDS SUMMARY | 2024-03-13 06:32 | XMS_ITS | Encounter Summary ---
Author Organization [facility] Address [address] [place] [address]. [place] [address] [place] [address] Care Team Providers Care Crayon Molding Machine Operator Name Role Phone Maritza Lorenzo MD Primary Care Provider Maritza Lorenzo MD Primary Care Provider Maritza Lorenzo MD Primary Care Provider Encounter Details Date Type Department Care Team (Late st Contact Info) Description 11/20/2001 Abstract [facility] [address] [place], [place] [id number] Micheal Do MD Social History Tobacco Use [...] on filedocumented in this encounter Care Teams Crayon Molding Machine Operator Relationship Specialty Start Date End Date Maritza Lorenzo MD [address] [place] [address] PCP - General 12/18/15 Maritza Lorenzo MD [address] [place] [address] PCP - General 01/03/15 12/17/15 Maritza Lorenzo MD [address] [place] [address] PCP - General 02/10/14 01/02/15 documented as of this encounter
--- OUTSIDE RECORDS SUMMARY | 2024-03-13 06:32 | XMS_ITS | Encounter Summary ---
Author Organization [facility] Address [address] [place] [address]. [place] [address] [place] [address] Care Team Providers Care Public Relations Account Executive Name Role Phone Maritza Lorenzo MD Primary Care Provider Maritza Lorenzo MD Primary Care Provider Maritza Lorenzo MD Primary Care Provider Encounter Details Date Type Department Care Team (Late st Contact Info) Description 10/23/1999 Abstract [facility] Diagnostic Imaging [address] [place], [place] [id number] Micheal Do MD Social History Tobacco Use [...] on filedocumented in this encounter Care Teams Public Relations Account Executive Relationship Specialty Start Date End Date Maritza Lorenzo MD [address] [place] [address] PCP - General 12/18/15 Maritza Lorenzo MD [address] [place] [address] PCP - General 01/03/15 12/17/15 Maritza Lorenzo MD [address] [place] [address] PCP - General 02/10/14 01/02/15 documented as of this encounter
--- OUTSIDE RECORDS SUMMARY | 2024-03-13 06:32 | XMS_ITS | Encounter Summary ---
Author Organization [facility] Address [address] [place] [address]. [place], [place] [address] [place] [address] Care Team Providers Care Serging Machine Operator Automatic Name Role Phone Maritza Lorenzo MD Primary Care Provider Maritza Lorenzo MD Primary Care Provider Maritza Lorenzo MD Primary Care Provider Encounter Details Date Type Department Care Team (Late st Contact Info) Description 05/16/2013 Abstract [facility] Medical/Surgical [address] [place], [place] [id number] Micheal Do MD Social History Tobacco Use [...] on filedocumented in this encounter Care Teams Serging Machine Operator Automatic Relationship Specialty Start Date End Date Maritza Lorenzo MD [address] [place], [place] [id number] PCP - General 12/18/15 Maritza Lorenzo MD [address] [place] [address] PCP - General 01/03/15 12/17/15 Maritza Lorenzo MD [address] [place] [address] PCP - General 02/10/14 01/02/15 documented as of this encounter
--- OUTSIDE RECORDS SUMMARY | 2024-03-13 06:32 | XMS_ITS | Encounter Summary ---
Author Organization [facility] Address [address] [place] [address]. [place], [place] [address] [place] [address] Care Team Providers Care Steward/Stewardess Dining Room Name Role Phone Maritza Lorenzo MD Primary Care Provider Maritza Lorenzo MD Primary Care Provider Maritza Lorenzo MD Primary Care Provider Encounter Details Date Type Department Care Team (Late st Contact Info) Description 11/07/2012 Abstract [facility] Medical/Surgical [address] [place], [place] [id number] Micheal Do MD Social History Tobacco Use [...] on filedocumented in this encounter Care Teams Steward/Stewardess Dining Room Relationship Specialty Start Date End Date Maritza Lorenzo MD [address] [place], [place] [id number] PCP - General 12/18/15 Maritza Lorenzo MD [address] [place] [address] PCP - General 01/03/15 12/17/15 Maritza Lorenzo MD [address] [place] [address] PCP - General 02/10/14 01/02/15 documented as of this encounter
--- OUTSIDE RECORDS SUMMARY | 2024-03-13 06:32 | XMS_ITS | Encounter Summary ---
Author Organization [facility] Address [address] [place] [address]. [place], [place] [address] [place] [address] Care Team Providers Care Program Director Group Work Name Role Phone Maritza Lorenzo MD Primary Care Provider Maritza Lorenzo MD Primary Care Provider Maritza Lorenzo MD Primary Care Provider Encounter Details Date Type Department Care Team (Late st Contact Info) Description 09/21/1999 Abstract [place] [address] , Generic MD Benigno Social History Tobacco [...] on filedocumented in this encounter Care Teams Program Director Group Work Relationship Specialty Start Date End Date Maritza Lorenzo MD [address] [place] [address] PCP - General 12/18/15 Maritza Lorenzo MD [address] [place] [address] PCP - General 01/03/15 12/17/15 Maritza Lorenzo MD [address] [place] [address] PCP - General 02/10/14 01/02/15 documented as of this encounter
--- OUTSIDE RECORDS SUMMARY | 2024-03-13 06:32 | XMS_ITS | Encounter Summary ---
Author Organization [facility] Address [address] [place] [address]. [place] [address] [place] [address] Care Team Providers Care Solder Making Supervisor Name Role Phone Maritza Lorenzo MD Primary Care Provider Maritza Lorenzo MD Primary Care Provider Maritza Lorenzo MD Primary Care Provider Encounter Details Date Type Department Care Team (Late st Contact Info) Description 10/23/[address] [facility] [address] [place], [place] [id number] Micheal Do MD Social History Tobacco Use [...] on filedocumented in this encounter Care Teams Solder Making Supervisor Relationship Specialty Start Date End Date Maritza Lorenzo MD [address] [place] [address] PCP - General 12/18/15 Maritza Lorenzo MD [address] [place] [address] PCP - General 01/03/15 12/17/15 Maritza Lorenzo MD [address] [place] [address] PCP - General 02/10/14 01/02/15 documented as of this encounter
--- OUTSIDE RECORDS SUMMARY | 2024-03-13 06:32 | XMS_ITS | Encounter Summary ---
Author Organization [facility] Address [address] [place] [address]. [place], [place] [address] [place] [address] Care Team Providers Care Molding Process Technician Name Role Phone Maritza Lorenzo MD Primary Care Provider Maritza Lorenzo MD Primary Care Provider Maritza Lorenzo MD Primary Care Provider Encounter Details Date Type Department Care Team (Late st Contact Info) Description 09/17/1999 Abstract [place] [address] , Generic MD Benigno Social History Tobacco [...] on filedocumented in this encounter Care Teams Molding Process Technician Relationship Specialty Start Date End Date Maritza Lorenzo MD [address] [place] [address] PCP - General 12/18/15 Maritza Lorenzo MD [address] [place] [address] PCP - General 01/03/15 12/17/15 Maritaz Lorenzo MD [address] [place] [address] PCP - General 02/10/14 01/02/15 documented as of this encounter
--- OUTSIDE RECORDS SUMMARY | 2024-03-13 06:32 | XMS_ITS | Encounter Summary ---
Author Organization [facility] Address [address] [place] [address]. [place], [place] [address] [place] [address] Care Team Providers Care Supervisor Baking Name Role Phone Maritza Lorenzo MD Primary Care Provider Maritza Lorenzo MD Primary Care Provider Maritza Lorenzo MD Primary Care Provider Encounter Details Date Type Department Care Team (Late st Contact Info) Description 02/10/2014 Abstract [facility] Emergency Room [address] [place], [place] [address] Micheal Do MD Social History Tobacco Use [...] unspecified documented in this encounter Care Teams Supervisor Baking Relationship Specialty Start Date End Date Maritza Lorenzo MD [address] [place] [address] PCP - General 12/18/15 Maritza Lorenzo MD [address] [place] [address] PCP - General 01/03/15 12/17/15 Maritza Lorenzo MD [address] [place] [address] PCP - General 02/10/14 01/02/15 documented as of this encounter
--- OUTSIDE RECORDS SUMMARY | 2024-03-13 06:32 | XMS_ITS | Encounter Summary ---
Author Organization [facility] Address [address] [place] [address]. [place], [place] [address] [place] [address] Care Team Providers Care Typo Machine Operator Name Role Phone Maritza Lorenzo MD Primary Care Provider Maritza Lorenzo MD Primary Care Provider Maritza Lorenzo MD Primary Care Provider Encounter Details Date Type Department Care Team (Late st Contact Info) Description 09/14/1999 [place] [address] , Generic MD Benigno Social History Tobacco [...] on filedocumented in this encounter Care Teams Typo Machine Operator Relationship Specialty Start Date End Date Maritza Lorenzo MD [address] [place] [address] PCP - General 12/18/15 Maritza Lorenzo MD [address] [place] [address] PCP - General 01/03/15 12/17/15 Maritza Lorenzo MD [address] [place] [address] PCP - General 02/10/14 01/02/15 documented as of this encounter
--- OUTSIDE RECORDS SUMMARY | 2024-03-13 06:32 | XMS_ITS | Encounter Summary ---
Author Organization [facility] Address [address] [place] [address]. [place], [place] [address] [place] [address] Care Team Providers Care Wholesale Diamond Broker Name Role Phone Marizta Lorenzo MD Primary Care Provider Maritza Lorenzo MD Primary Care Provider Maritza Lorenzo MD Primary Care Provider Encounter Details Date Type Department Care Team (Late st Contact Info) Description 10/05/1999 Abstract [place] [address] , Generic MD Benigno Social History Tobacco [...] on filedocumented in this encounter Care Teams Wholesale Diamond Broker Relationship Specialty Start Date End Date Maritza Lorenzo MD [address] [place] [address] PCP - General 12/18/15 Maritza Lorenzo MD [address] [place] [address] PCP - General 01/03/15 12/17/15 Maritza Lorenzo MD [address] [place] [address] PCP - General 02/10/14 01/02/15 documented as of this encounter
--- OUTSIDE RECORDS SUMMARY | 2024-03-13 06:32 | XMS_ITS | Encounter Summary ---
Author Organization [facility] Address [address] [place] [address]. [place] [address] [place] [address] Care Team Providers Care Nurse Anesthetist Name Role Phone Maritza Lorenzo MD Primary Care Provider Maritza Lorenzo MD Primary Care Provider Maritza Lorenzo MD Primary Care Provider Encounter Details Date Type Department Care Team (Late st Contact Info) Description 07/31/1999 Abstract [facility] Labor & Delivery [address] [place], [place] [id number] Micheal Do MD Social History Tobacco Use [...] on filedocumented in this encounter Care Teams Nurse Anesthetist Relationship Specialty Start Date End Date Maritza Lorenzo MD [address] [place] [address] PCP - General 12/18/15 Maritza Lorenzo MD [address] [place] [address] PCP - General 01/03/15 12/17/15 Maritza Lorenzo MD [address] [place] [address] PCP - General 02/10/14 01/02/15 documented as of this encounter
--- OUTSIDE RECORDS SUMMARY | 2024-03-13 06:32 | XMS_ITS | Encounter Summary ---
Author Organization [facility] Address [address] [place] [address]. [place], [place] [address] [place] [address] Care Team Providers Care Java Software Developer Name Role Phone Maritza oLrenzo MD Primary Care Provider Maritza Lorenzo MD Primary Care Provider Maritza Lorenzo MD Primary Care Provider Encounter Details Date Type Department Care Team (Late st Contact Info) Description 01/08/2013 Abstract [facility] Medical/Surgical [address] [place], [place] [id number] Micheal Do MD Social History Tobacco Use [...] on filedocumented in this encounter Care Teams Java Software Developer Relationship Specialty Start Date End Date Maritza Lorenzo MD [address] [place], [place] [id number] PCP - General 12/18/15 Maritza Lorenzo MD [address] [place] [address] PCP - General 01/03/15 12/17/15 Maritza Lorenzo MD [address] [place] [address] PCP - General 02/10/14 01/02/15 documented as of this encounter
--- OUTSIDE RECORDS SUMMARY | 2024-03-13 06:32 | XMS_ITS | Encounter Summary ---
Author Organization [facility] Address [address] [place] [address]. [place], [place] [address] [place] [address] Care Team Providers Care Barkeeper Name Role Phone Maritza Lorenzo MD Primary Care Provider Maritza Lorenzo MD Primary Care Provider Maritza Lorenzo MD Primary Care Provider Encounter Details Date Type Department Care Team (Late st Contact Info) Description 09/25/2013 Abstract [facility] Medical/Surgical [address] [place], [place] [id number] Micheal Do MD Social History Tobacco Use [...] on filedocumented in this encounter Care Teams Barkeeper Relationship Specialty Start Date End Date Maritza Lorenzo MD [address] [place], [place] [id number] PCP - General 12/18/15 Maritza Lorenzo MD [address] [place] [address] PCP - General 01/03/15 12/17/15 Maritza Lorenzo MD [address] [place] [address] PCP - General 02/10/14 01/02/15 documented as of this encounter
--- OUTSIDE RECORDS SUMMARY | 2024-03-13 06:32 | XMS_ITS | Encounter Summary ---
Author Organization [facility] Address [address] [place] [address]. [place], [place] [address] [place] [address] Care Team Providers Care Mailer Apprentice Name Role Phone Maritza Lorenzo MD Primary Care Provider Maritza Lorenzo MD Primary Care Provider Maritza Lorenzo MD Primary Care Provider Encounter Details Date Type Department Care Team (Late st Contact Info) Description 03/12/2013 Abstract [facility] Medical/Surgical [address] [place], [place] [id number] Micheal Do MD Social History Tobacco Use [...] on filedocumented in this encounter Care Teams Mailer Apprentice Relationship Specialty Start Date End Date Maritza Lorenzo MD [address] [place] [address] PCP - General 12/18/15 Maritza Lorenzo MD [address] [place] [address] PCP - General 01/03/15 12/17/15 Maritza Lorenzo MD [address] [place] [address] PCP - General 02/10/14 01/02/15 documented as of this encounter
--- OUTSIDE RECORDS SUMMARY | 2024-03-13 06:32 | XMS_ITS | Encounter Summary ---
Author Organization [facility] Address [address] [place] [address]. [place], [place] [address] [place] [address] Care Team Providers Care Room Service Clerk Name Role Phone Maritza Lorenzo MD Primary Care Provider Maritza Lorenzo MD Primary Care Provider Maritza Lorenzo MD Primary Care Provider Encounter Details Date Type Department Care Team (Late st Contact Info) Description 07/12/2001 Emergency [facility] [place] [address] Carlos A Dobbs MD [facility] [place] [place] [address] Social History Tobacco Use Types Packs/Day Years [...] on filedocumented in this encounter Care Teams Room Service Clerk Relationship Specialty Start Date End Date Maritza Lorenzo MD [address] [place] [address] PCP - General 12/18/15 Maritza Lorenzo MD [address] [place] [address] PCP - General 01/03/15 12/17/15 Maritza Lorenzo MD [address] [place] [address] PCP - General 02/10/14 01/02/15 documented as of this encounter
--- OUTSIDE RECORDS SUMMARY | 2024-03-13 06:32 | XMS_ITS | Encounter Summary ---
Author Organization [facility] Address [address] [place] [address]. [place] [address] [place] [address] Care Team Providers Care Mechanical Energy Engineer Name Role Phone Maritza Lorenzo MD Primary Care Provider Maritza Lorenzo MD Primary Care Provider Maritza Lorenzo MD Primary Care Provider Encounter Details Date Type Department Care Team (Late st Contact Info) Description 05/11/2002 Emergency [facility] [place] [address] Micheal Do MD Social History [...] on filedocumented in this encounter Care Teams Mechanical Energy Engineer Relationship Specialty Start Date End Date Maritza Lorenzo MD [address] [place] [address] PCP - General 12/18/15 Maritza Lorenzo MD [address] [place] [address] PCP - General 01/03/15 12/17/15 Maritza Lorenzo MD [address] [place] [address] PCP - General 02/10/14 01/02/15 documented as of this encounter
--- OUTSIDE RECORDS SUMMARY | 2024-03-13 06:44 | XMS_ITS | Encounter Summary ---
Author Organization [facility] Address [address] [place] [address] Care Team Providers Care Soaker Hides Name Role Phone No, Physician Primary Care Provider [phone] Rashaun Benavidez MD Unavailable [phone] Miscellaneous, Not In File Unavailable Unava ilable Encounter Details Date Type Department Care Team (Late st Contact Info) Description 09/12/2023 [facility] Post Discharge Follow up phone call [address] [address] Yaa Bishop, ZANE Social History [...] How often do you attend temple or oriental orthodox serv ices? Never 09/05/2023 Do you belong [...] slept in a correction (including now)? No 08/06/2022 Housing Stability Vital Sign Answer Calvin e Recorded In the last 12 months, was t here a time when you were not able to pay the mortgage or rent on time? No 09/05/2023 In the past 12 months, how m any times have you moved where you were living? 1 09/05/2023 At any time in the past 12 m [facility], were you homeless or living in a correction (including now)? No 09/05/2023 Personal Safety Answer Date Recorded Have you ever been in or are you currently in a harmful physical or emotional relationship or is someone making you feel afraid or unsafe? Denies 09/03/2023 Comments No Sex and Gender Information Value Date Recorded Sex Assigned at Not on file Legal Sex Female 3:16 AM DEMAND MANAGER Gender Identity Not on file Sexual Orientation Not on file documented as of this encounter Plan of Treatment Not on file documented as of this encounter Visit Diagnoses Not on filedocumented in this encounter Additional Health Concerns Infection Onset Date Last Indicated Resolved Time MRSA Comment:Wound from arm - 09/03/2023, 09/04/2023 09/03/2023 03/05/2024 documented as of this encounter Care Teams Soaker Hides Relationship Specialty Start Date End Date No, Physician PCP - General 01/31/21 Rashaun Benavidez MD [facility] [place] [address] [place] [id number] Consulting Physician Cardiology 07/08/22 Miscellaneous, Not In File 07/08/22 documented as of this encounter
--- OUTSIDE RECORDS SUMMARY | 2024-03-13 06:44 | XMS_ITS | Encounter Summary ---
Author Organization [facility] Address [address] [place] [address] Care Team Providers Care Bowling Alley Refinisher Name Role Phone No, Physician Primary Care Provider [phone] Rashaun Benavidez MD Unavailable [phone] Miscellaneous, Not In File Unavailable Unava ilable Encounter Details Date Type Department Care Team (Late st Contact Info) Description 11/09/2023 Orders Only [facility] [address] [place] [address] Anette Apple MD [address] [place] [address] [place] [address] Ulcer with gangrene, with fat layer exposed (HCC) (Primary Dx) Social History Tobacco Use Types Packs/Day Years Used Date Smoking Tobacco: Never Smokeless Tobacco: Never Alcohol Use Standard Drinks/Week Comments Not Currently 0 (1 standard drink = 0.6 oz pur e alcohol) [facility] Utilities Answer Date Recorded In the past 12 months has [employer], gas, oil, or water [employer] threatened to shut off services in your [...] How often do you attend jew or caodaism serv ices? Never 09/05/2023 Do you belong [...] any time in the past 12 m [facility], were you homeless or living in a [...] on file Legal Sex Female 3:16 AM PORTABLE MACHINE SANDER Gender Identity Not on file Sexual Orientation Not on file documented as of this encounter Plan of Treatment Not on file documented as of this encounter Results * (ABNORMAL) Tissue aerobic and anaerobic culture and gram stain Tissue Arm, right (11/09/2023 4:30 PM CDT) Direct Specimen Exam Stain: Few polymorphonuclear leukocytes seen. Moderate Gram Positive Cocci Comment:Testing performed by : [facility], [address] [place] [address]., [id number] Report Final Report: Moderate Staphylococcus aureus Methicillin resistant (MRSA) by penicillin binding protein 2a (PBP2a) testing. (.) LAURA HORN (PRATIBHA) Comment:Testing performed by : [facility], [address] [place] [address]., [id number] Organism STAPHYLOCOCCUS AUREUS LAURA HORN (PRATIBHA) Tissue (Arm, right) 11/09/2023 4:30 PM CDT 11/09/2023 7:37 PM CDT Narrative LAURA HORN (PRATIBHA) - 11/16/2023 2:34 PM CDT Testing performed by [facility] Microbiology Laboratory ([phone]) Specimens submitted from normally sterile body sites [...] GENERAL O RDERABLES Final Result [facility] (MARKLE) [facility] Department [place] [address] documented in this encounter Visit Diagnoses Diagnosis Ulcer with gangrene, with fat layer exposed (HCC) Ulcer with gangrene, with fat layer exposed (HCC)- Primary documented in this encounter Additional Health Concerns Infection Onset Date Last Indicated Resolved Time MRSA Comment:Wound from arm - 09/03/2023, 09/04/2023 09/03/2023 03/05/2024 documented as of this encounter Care Teams Bowling Alley Refinisher Relationship Specialty Start Date End Date No, Physician PCP - General 01/31/21 Rashaun Benavidez MD [facility] [place] [address] [place] [address] Consulting Physician Cardiology 07/08/22 Miscellaneous, Not In File 07/08/22 documented as of this encounter
--- OUTSIDE RECORDS SUMMARY | 2024-03-13 06:44 | XMS_ITS | Continuity of Care Document ---
Author Organization [facility] Address [address] [place] [address] Phone Care Team Providers Care Hob Mill Operator Name Role Phone Arslan Funes MD Unavailable Unavailable Advance Directives Directive Yes / No Effective Date File Name No Information Encounters Encounter Description Practice Location Reason(s) For Visit Diagnoses Date Provider Providers Copied on Encounter [facility], [address], [place], [place], [id number], [place] tel:[phone] [facility] No Information Marin Mcdaniels. [address] [place] [address], [address], [place], [place], [id number], [place]. tel:[phone] Family History Family Member Type Diagnosis Age At Onset No Information Payers Payer name Insurance type Covered libertarian ID Authoriza [email or web address]) [email or web address] HE[employer] PLAN CI [id number] Social History Type Description Quantity Date Captured [...]
--- OUTSIDE RECORDS SUMMARY | 2024-03-13 06:44 | XMS_ITS | Clinical Summary ---
Author Organization [facility] Address [address] [place] [address] Care Team Providers Care Protein Scientist Name Role Phone No, Physician Primary Care Provider [phone] Rashaun Benavidez MD Unavailable [phone] Miscellaneous, Not In File Unavailable Unava ilable [...] tachycardia 07/01/2022 Fentanyl use disorder, moderate, dependence ([facility] /HCC) 03/04/2020 Opioid abuse HFrEF (heart failure with re duced ejection fraction) ([facility]) Encounters Date Type Department Care Team Description 03/05/2024 12:45 PM GALLEY COOK Office Visit [facility] [address] [place] [address] Abscess of arm, right; Skin ulcer of upper arm, with fat layer exposed (HCC) 03/05/2024 Orders Only [address] [address] Anette Apple MD 03/05/2024 Orders Only [facility] [address] [place] [address] Anette Apple MD Abscess of arm, right (Primary Dx); Skin ulcer of upper arm, with fat layer exposed (HCC) 02/15/2024 Orders Only [facility] [address] [place] [address] Anette Apple MD from Last 3 Months [...] drink = 0.6 oz pur e alcohol) [facility] Utilities Answer Date Recorded In the past 12 months has [employer], gas, oil, or water [employer] threatened to shut off services in your home? No 09/05/2023 Social Connection and Isolation Panel [NHANES] A nswer Date Recorded In a typical week, how many times do you talk on the phone with family, friends, or neighbors? Once a week 09/05/2023 How often do you get together with friends or re latives? Once a week 09/05/2023 How often do you attend scientologist or buddhist serv ices? Never 09/05/2023 Do you belong to any clubs o r organizations such as scientologist groups, unions, fraternal or athletic groups, or [...] time in the past 12 m [facility], were you homeless or living [...] on file Legal Sex Female 3:16 AM GALLEY COOK Gender Identity Not on file Sexual Orientation [...] AND GRAM STAIN Routine 03/05/2024 2:00 PM GALLEY COOK Abscess of arm, right TISSUE AEROBIC AND ANAEROBIC CULTURE AND GRAM STAIN Routine 03/05/2024 1:50 PM GALLEY COOK Skin ulcer of upper arm, with fat layer exposed (HCC) HEPATITIS PANEL, ACUTE Routine 09/05/2023 12:54 PM CDT from Last 3 Months or Most Recently Relevant to Health Maintenance Results * (ABNORMAL) Aerobic and anaerobic culture and gram stain Wound Arm, right (03/05/2024 2:00 PM GALLEY COOK) Direct Specimen Exam Stain: No polymorphonuclear leukocytes seen. No organisms seen. Comment:Testing performed by : [facility], [address] [place] [address]., [id number] Report Final Report: Few Staphylococcus aureus Methicillin resistant (MRSA) by penicillin binding protein 2a (PBP2a) testing. Few Streptococcus pyogenes (Group A Streptococci) Streptococcus pyogenes is uniformly susceptible to beta-lactam antibiotics and vancomycin. ??Routine susceptibility testing is not performed. (.) LAURA HORN (PRATIBHA) Comment:Testing performed by : [facility], [address] [place] [address]., [id number] Organism STAPHYLOCOCCUS AUREUS LAURA HORN (PRATIBHA) Organism STREPTOCOCCUS PYOGENES (GROUP A STREPTOCOCCI) LAURA HORN (PRATIBHA) Wound (Arm, right) 03/05/2024 2:00 PM GALLEY COOK 03/05/2024 7:46 PM GALLEY COOK Narrative LAURA HORN (PRATIBHA) - 03/09/2024 8:13 AM GALLEY COOK Specimen received on an ESwab. Testing performed by [facility] ([phone]) Specimens submitted from normally sterile body sites [...] ALEERAARMEN Final Result LAURA HORN (PRATIBHA) 1 [facility] Department [place] [address] * (ABNORMAL) Tissue aerobic and anaerobic culture and gram stain Tissue Arm, left (03/05/2024 1:50 PMCST) Direct Specimen Exam Stain: No polymorphonuclear leukocytes seen. Moderate Gram Positive Cocci Comment:Testing performed by : [facility], [address] [place] [address]., [id number] Report Final Report: Moderate Staphylococcus aureus Methicillin resistant (MRSA) by penicillin binding protein 2a (PBP2a) testing. Moderate Streptococcus pyogenes (Group A Streptococci) Streptococcus pyogenes is uniformly susceptible to beta-lactam antibiotics and vancomycin. ??Routine susceptibility testing is not performed. (.) LAURA HORN (PRATIBHA) Comment:Testing performed by : [facility], [address] [place] [address], [place]., [address] Organism STAPHYLOCOCCUS AUREUS LAURA HORN (PRATIBHA) Organism STREPTOCOCCUS PYOGENES (GROUP A STREPTOCOCCI) LAURA HORN (PRATIBHA) Tissue (Arm, left) 03/05/2024 1:50 PM GALLEY COOK 03/05/2024 7:42 PM GALLEY COOK Narrative LAURA HORN (PRATIBHA) - 03/09/2024 8:14 AM GALLEY COOK Testing performed by [facility] ([phone]) Specimens submitted from normally sterile body sites [...] RDERABLES Final Result LAURA HORN (PRATIBHA) 1 [facility] Department of Laboratories [place], [place] [id number] * Hepatitis panel, acute Blood (09/05/2023 12:54 [...] ICROBIOLOGY - GENERAL ORDERABLES Final Result LAURA [address] [address] Department [place] [address] from Last 3 Months or Most Recently Relevant to Health Maintenance Additional Health Concerns Infection Onset Date Last Indicated MRSA Comment:Wound from arm - 09/03/2023, 09/04/2023 09/03/20232023 Insurance [facility] Advance Directives For more information, please contact: [phone] * Full Code (Latest Code Status on [...] 1:05 PM 03/07/2020 1:54 PM Care Teams Protein Scientist Relationship Specialty Start Date End Date No, Physician PCP - General 01/31/21 Rashaun Benavidez MD [address] [place] [address] Consulting Physician Cardiology 07/08/22 Miscellaneous, Not In File 07/08/22
--- OUTSIDE RECORDS SUMMARY | 2024-03-13 06:44 | XMS_ITS | Encounter Summary ---
Author Organization [facility] Healthcare Address [address] [place] [address] Care Team Providers Care Plant And Instrument Engineer Name Role Phone No, Physician Primary Care Provider [phone] Rashaun Benavidez MD Unavailable [phone] Miscellaneous, Not In File Unavailable Unava ilable Encounter Details Date Type Department Care Team (Late st Contact Info) Description 03/05/2024 12:45 PM SYSTEMS DEVELOPMENT MANAGER Office Visit [facility] for [facility] Care [facility] Medicine [address] [place] [address] Abscess of arm, right; Skin ulcer of upper arm, with fat layer exposed (HCC) Social History Tobacco Use Types Packs/Day Years Used Date Smoking Tobacco: Never Smokeless Tobacco: Never Alcohol Use Standard Drinks/Week Comments Not Currently 0 (1 standard drink = 0.6 oz pur e alcohol) [facility] Utilities Answer Date Recorded In the past 12 months has [email or web address] electric, gas, oil, or water company threatened [...] week 09/05/2023 How often do you attend sikhism or mu-ism serv ices? Never 09/05/2023 Do you belong to any clubs o r organizations such as sikhism groups, unions, fraternal or athletic groups, or [...] place to sleep or slept in a halfway (including now)? No 08/06/2022 Housing Stability Vital [...] time in the past 12 m [facility], were you homeless or living in a halfway (including now)? No 09/05/2023 Personal Safety Answer Date Recorded Have you ever been in or are you currently in a harmful physical or emotional relationship or is someone making you feel afraid or unsafe? Denies 10/05/2023 Comments No Sex and Gender Information Value Date Recorded Sex Assigned at Not on file Legal Sex Female 3:16 AM SYSTEMS DEVELOPMENT MANAGER Gender Identity Not on file Sexual Orientation Not on file documented as of this encounter Plan of Treatment Not on file documented as of this encounter Procedures Procedure Name Priority Date/Time Associated Diagnosis Comments AEROBIC AND ANAEROBIC CULTURE AND GRAM STAIN Routine 03/05/2024 2:00 PM SYSTEMS DEVELOPMENT MANAGER Abscess of arm, right TISSUE AEROBIC AND ANAEROBIC CULTURE AND GRAM STAIN Routine 03/05/2024 1:50 PM SYSTEMS DEVELOPMENT MANAGER Skin ulcer of upper arm, with fat layer exposed (HCC) documented in this encounter Results * (ABNORMAL) Aerobic and anaerobic culture and gram stain Wound Arm, right (03/05/2024 2:00 PM SYSTEMS DEVELOPMENT MANAGER) Direct Specimen Exam Stain: No polymorphonuclear leukocytes seen. No organisms seen. Comment:Testing performed by : [facility], [address] [place]., [address] Report Final Report: Few Staphylococcus aureus Methicillin resistant (MRSA) by penicillin binding protein 2a (PBP2a) testing. Few Streptococcus pyogenes (Group A Streptococci) Streptococcus pyogenes is uniformly susceptible to beta-lactam antibiotics and vancomycin. ??Routine susceptibility testing is not performed. (.) LAURA HORN (PRATIBHA) Comment:Testing performed by : [facility], [address] [place] [address], [place]., [address] Organism STAPHYLOCOCCUS AUREUS LAURA HORN (PRATIBHA) Organism STREPTOCOCCUS PYOGENES (GROUP A STREPTOCOCCI) LAURA HORN (PRATIBHA) Wound (Arm, right) 03/05/2024 2:00 PM SYSTEMS DEVELOPMENT MANAGER 03/05/2024 7:46 PM SYSTEMS DEVELOPMENT MANAGER Narrative LAURA HORN (PRATIBHA) - 03/09/2024 8:13 AM SYSTEMS DEVELOPMENT MANAGER Specimen received on an ESwab. Testing performed by [facility] ([phone]) Specimens submitted from normally sterile body sites [...] RDERABLES Final Result LAURA HORN (PRATIBHA) 1 [facility] Department [place] [address] * (ABNORMAL) Tissue aerobic and anaerobic culture and gram stain Tissue Arm, left (03/05/2024 1:50 PMCST) Direct Specimen Exam Stain: No polymorphonuclear leukocytes seen. Moderate Gram Positive Cocci Comment:Testing performed by : [facility], [address] [place] [address], [place]., [id number] Report Final Report: Moderate Staphylococcus aureus Methicillin resistant (MRSA) by penicillin binding protein 2a (PBP2a) testing. Moderate Streptococcus pyogenes (Group A Streptococci) Streptococcus pyogenes is uniformly susceptible to beta-lactam antibiotics and vancomycin. ??Routine susceptibility testing is not performed. (.) LAURA HORN (PRATIBHA) Comment:Testing performed by : [address] [place] [address] Organism STAPHYLOCOCCUS AUREUS LAURA HORN (PRATIBHA) Organism STREPTOCOCCUS PYOGENES (GROUP A STREPTOCOCCI) LAURA HORN (PRATIBHA) Tissue (Arm, left) 03/05/2024 1:50 PM SYSTEMS DEVELOPMENT MANAGER 03/05/2024 7:42 PM SYSTEMS DEVELOPMENT MANAGER Narrative LAURA HORN (PRATIBHA) - 03/09/2024 8:14 AM SYSTEMS DEVELOPMENT MANAGER Testing performed by [facility] ([phone]) Specimens submitted from normally sterile body sites [...] Antibiotic Method Susceptibility Staphylococcus aureus Daptomycin (SHARI) (SHAIR) INTERPRET ATION Susceptible Staphylococcus aureus Ceftaroline (SHARI) [...] RDERABLES Final Result LAURA HORN (PRATIBHA) 1 [facility] Department [place] [address] documented in this encounter Visit Diagnoses Diagnosis Abscess of arm, right Skin ulcer of upper arm, with fat layer exposed (HCC) documented in this encounter Additional Health Concerns Infection Onset Date Last Indicated Resolved Time MRSA Comment:Wound from arm - 09/03/2023, 09/04/2023 09/03/2023 03/05/2024 documented as of this encounter Care Teams Plant And Instrument Engineer Relationship Specialty Start Date End Date No, Physician PCP - General 01/31/21 Rashaun Benavidez MD [address] [place] [place] [place] [address] Consulting Physician Cardiology 07/08/22 Miscellaneous, Not In File 07/08/22 documented as of this encounter
--- OUTSIDE RECORDS SUMMARY | 2024-03-13 06:44 | XMS_ITS | Encounter Summary ---
Author Organization [facility] Healthcare Address [address] [place] [address] Care Team Providers Care Evp Of Products & Co Founder Name Role Phone No, Physician Primary Care Provider [phone] Rashaun Benavidez MD Unavailable [phone] Miscellaneous, Not In File Unavailable Unava ilable Encounter Details Date Type Department Care Team (Late st Contact Info) Description 02/15/2024 Orders Only [facility] [address] [place] [address] Anette Apple MD [address] [place] [address] [place] [address] Social History Tobacco Use Types Packs/Day Years Used Date Smoking Tobacco: Never Smokeless Tobacco: Never Alcohol Use Standard Drinks/Week Comments Not Currently 0 (1 standard drink = 0.6 oz pur e alcohol) [facility] Utilities Answer Date Recorded In the past 12 months has [employer], gas, oil, or water [employer] threatened to shut off services in your home? No 09/05/2023 Social Connection and Isolation Panel [NHANES] A nswer Date Recorded In a typical week, how many times do you talk on the phone with family, friends, or neighbors? Once a week 09/05/2023 How often do you get together with friends or re latives? Once a week 09/05/2023 How often do you attend oriental orthodox or mosque serv ices? Never 09/05/2023 Do you belong to any clubs o r organizations such as oriental orthodox groups, unions, fraternal or athletic groups, [...] any time in the past 12 m [facility], were you homeless or living in a [...] on file Legal Sex Female 3:16 AM TELEPHONE ADVICE NURSE Gender Identity Not on file Sexual [...] documented as of this encounter Care Teams Ev[employer] Products [employer] Founder Relationship Specialty Start Date End Date No, Physician PCP - General 01/31/21 Rashaun Benavidez MD [address] [facility] [address] [place] [id number] Consulting Physician Cardiology 07/08/22 Miscellaneous, Not In File 07/08/22 documented as of this encounter
--- OUTSIDE RECORDS SUMMARY | 2024-03-13 06:44 | XMS_ITS | Encounter Summary ---
Author Organization [facility] Healthcare Address [address] [place] [address] Care Team Providers Care Link Knitting Machine Operator Name Role Phone No, Physician Primary Care Provider [phone] Rashaun Benavidez MD Unavailable [phone] Miscellaneous, Not In File Unavailable Unava ilable Encounter Details Date Type Department Care Team (Late st Contact Info) Description 11/09/2023 Orders Only [address] [address] Anette Apple MD [address] [place] [address] [place] [address] Social History Tobacco Use Types Packs/Day Years Used Date Smoking Tobacco: Never Smokeless Tobacco: Never Alcohol Use Standard Drinks/Week Comments Not Currently 0 (1 standard drink = 0.6 oz pur e alcohol) [facility] Utilities Answer Date Recorded In the past 12 months has [employer] electric, gas, oil, or water company threatened [...] How often do you attend buddhism or christian serv ices? Never 09/05/2023 Do [...] in a usp (including now)? No 08/06/2022 Housing Stability Vital Sign Answer Calvin e Recorded In the last 12 months, was t here a time when you were not able to pay the mortgage or rent on time? No 09/05/2023 In the past 12 months, how m any times have you moved where you were living? 1 09/05/2023 At any time in the past 12 m [facility], were you homeless or living in a usp (including now)? No 09/05/2023 Personal Safety Answer Date Recorded Have you ever been in or are you currently in a harmful physical or emotional relationship or is someone making you feel afraid or unsafe? Denies 10/05/2023 Comments No Sex and Gender Information Value Date Recorded Sex Assigned at Not on file Legal Sex Female 3:16 AM CLINICAL TRIAL LEADER Gender Identity Not on file Sexual Orientation Not on file documented as of this encounter Plan of Treatment Not on file documented as of this encounter Visit Diagnoses Not on filedocumented in this encounter Additional Health Concerns Infection Onset Date Last Indicated Resolved Time MRSA Comment:Wound from arm - 09/03/2023, 09/04/2023 09/03/2023 03/05/2024 documented as of this encounter Care Teams Link Knitting Machine Operator Relationship Specialty Start Date End Date No, Physician PCP - General 01/31/21 Rashaun Benavidez MD [address] [facility] [address] [place] [id number] Consulting Physician Cardiology 07/08/22 Miscellaneous, Not In File 07/08/22 documented as of this encounter
--- OUTSIDE RECORDS SUMMARY | 2024-03-13 06:44 | XMS_ITS | Encounter Summary ---
Author Organization [facility] Healthcare Address [address] [place] [address] Care Team Providers Care Inspector Plug Seam Name Role Phone No, Physician Primary Care Provider [phone] Rashaun Benavidez MD Unavailable [phone] Miscellaneous, Not In File Unavailable Unava ilable Encounter Details Date Type Department Care Team (Late st Contact Info) Description 11/15/2023 Orders Only [facility] [address] [place] [address] Anette Apple MD [address] [place] [address] [place] [address] Social History Tobacco Use Types Packs/Day Years Used Date Smoking Tobacco: Never Smokeless Tobacco: Never Alcohol Use Standard Drinks/Week Comments Not Currently 0 (1 standard drink = 0.6 oz pur e alcohol) [facility] Utilities Answer Date Recorded In the past 12 months has [employer], gas, oil, or water [employer] threatened to shut off services in your [...] How often do you attend orthodoxy or sikh serv ices? Never 09/05/2023 Do [...] slept in a long-term (including now)? No 08/06/2022 Housing Stability Vital Sign Answer Calvin e Recorded In the last 12 months, was t here a time when you were not able to pay the mortgage or rent on time? No 09/05/2023 In the past 12 months, how m any times have you moved where you were living? 1 09/05/2023 At any time in the past 12 m [facility], were you homeless or living in a long-term (including now)? No 09/05/2023 Personal Safety Answer Date Recorded Have you ever been in or are you currently in a harmful physical or emotional relationship or is someone making you feel afraid or unsafe? Denies 10/05/2023 Comments No Sex and Gender Information Value Date Recorded Sex Assigned at Not on file Legal Sex Female 3:16 AM STOCK MOVER Gender Identity Not on file Sexual Orientation [...] documented as of this encounter Care Teams Inspector Plug Seam Relationship Specialty Start Date End Date No, Physician PCP - General 01/31/21 Rashaun Benavidez MD [address] [facility] [address] [place] [id number] Consulting Physician Cardiology 07/08/22 Miscellaneous, Not In File 07/08/22 documented as of this encounter
--- OUTSIDE RECORDS SUMMARY | 2024-03-13 06:44 | XMS_ITS | Encounter Summary ---
Author Organization [facility] Healthcare Address [address] [place] [address] Care Team Providers Care Tipple Supervisor Name Role Phone No, Physician Primary Care Provider [phone] Rashaun Benavidez MD Unavailable [phone] Miscellaneous, Not In File Unavailable Unava ilable Reason for Visit * Reason Comments Chest Pain My heart has been a cting up and been short of breath. Encounter Details Date Type Department Care Team (Late st Contact Info) Description 10/05/2023 11:31 PM CDT - 10/05/2023 11:33 PM CDT Emergency [facility] Emergency Department [address] [place] [address] Discharge Disposition: Left without being seen Social History Tobacco Use Types Packs/Day Years Used Date Smoking Tobacco: Never Smokeless Tobacco: Never Alcohol Use Standard Drinks/Week Comments Not Currently 0 (1 standard drink = 0.6 oz pur e alcohol) [facility] Utilities Answer Date Recorded In the past 12 months has [employer], gas, oil, or water [employer] threatened to shut off services in your home? No 09/05/2023 Social Connection and Isolation Panel [NHANES] A nswer Date Recorded In a typical week, how many times do you talk on the phone with family, friends, or neighbors? Once a week 09/05/2023 How often do you get together with friends or re latives? Once a week 09/05/2023 How often do you attend hindu or adventism serv ices? Never 09/05/2023 Do you belong to any clubs o r organizations such as hindu groups, unions, fraternal or athletic groups, or [...] place to sleep or slept in a assisted (including now)? No 08/06/2022 Housing Stability Vital Sign Answer Calvin e Recorded In the last 12 months, was t here a time when you were not able to pay the mortgage or rent on time? No 09/05/2023 In the past 12 months, how m any times have you moved where you were living? 1 09/05/2023 At any time in the past 12 m [facility], were you homeless or living in a assisted (including now)? No 09/05/2023 Personal Safety Answer Date Recorded Have you ever been in or are you currently in a harmful physical or emotional relationship or is someone making you feel afraid or unsafe? Denies 10/05/2023 Comments No Sex and Gender Information Value Date Recorded Sex Assigned at Not on file Legal Sex Female 3:16 AM EDUCATIONAL INSTITUTION CURATOR Gender Identity Not on file Sexual Orientation [...] CDT) 10/05/2023 7:[address] [facility] - 10/06/2023 7:25 AM CDT Vent Rate: 91 bpm RR Interval: 657 msec UT Interval: 153 msec QRS Duration: 98 msec QT Interval: 352 msec QTC Interval: 401 msec P-R-T [place]: 12 - 7 - 74 degrees IMPRESSION: SINUS RHYTHM NONSPECIFIC T-WAVE ABNORMALITY BORDERLINE ECG INTERPRETATION BASED ON A DEFAULT AGE OF 40 YEARS Electronically Signed By: Dr. Romelia Kruse [facility] us Shawn Joseph DO ECG ORDERABLES Final Result [facility] documented in this encounter Visit Diagnoses Not on filedocumented in this encounter Additional Health Concerns Infection Onset Date Last Indicated Resolved Time MRSA Comment:Wound from arm - 09/03/2023, 09/04/2023 09/03/2023 03/05/2024 documented as of this encounter Care Teams Tipple Supervisor Relationship Specialty Start Date End Date No, Physician PCP - General 01/31/21 Rashaun Benavidez MD [address] [place] [address] Consulting Physician Cardiology 07/08/22 Miscellaneous, Not In File 07/08/22 documented as of this encounter
--- OUTSIDE RECORDS SUMMARY | 2024-03-13 06:44 | XMS_ITS | Referral Summary ---
Author Organization [facility] Address [address] [place] [address] Care Team Providers Care Senior Mechanical Technician Name Role Phone No, Physician Primary Care Provider [phone] Rashaun Benavidez MD Unavailable [phone] Miscellaneous, Not In File Unavailable Unava ilable Encounters Date Type Department Care Team Description 03/05/2024 Orders Only [address] [address] Anette Apple MD 03/05/2024 Orders Only [facility] for Wound Care and Hyperbaric Medicine [address] [place] [address] Anette Apple MD Abscess of arm, right (Primary Dx); Skin ulcer of upper arm, with fat layer exposed (HCC) 03/05/2024 12:45 PM PORT CDL A DRIVER Office Visit [facility] for Wound Care and Hyperbaric Medicine [address] [place] [address] Abscess of arm, right; Skin ulcer of upper arm, with fat layer exposed (HCC) 02/15/2024 Orders Only [facility] Wound Care and Hyperbaric Medicine [address] [place] [address] Anette Apple MD from Last 3 Months [...] tachycardia 07/01/2022 Fentanyl use disorder, moderate, dependence ([facility]) 03/04/2020 Opioid abuse HFrEF (heart failure with re duced ejection fraction) ([facility]) Immunizations Name Administration Dates Next Due Influenza, Quadrivalent, Spl it, Preservative Free, Intramuscular 03/07/2020(Deferred: Patient Refused) Social History Tobacco Use Types Packs/Day Years Used Date Smoking Tobacco: Never Smokeless Tobacco: Never Tobacco Cessation:Counseling Given: Not Answered Alcohol Use Standard Drinks/Week Comments Not Currently 0 (1 standard drink = 0.6 oz pur e alcohol) [facility] Utilities Answer Date Recorded In the past 12 months has [employer], gas, oil, or water [employer] threatened to shut off services in your home? No 09/05/2023 Social Connection and Isolation Panel [NHANES] A nswer Date Recorded In a typical week, how many times do you talk on the phone with family, friends, or neighbors? Once a week 09/05/2023 How often do you get together with friends or re latives? Once a week 09/05/2023 How often do you attend taoist or congregation serv ices? Never 09/05/2023 Do you belong to any clubs o r organizations such as taoist groups, unions, fraternal or athletic groups, or [...] any time in the past 12 m [facility], were you homeless or [...] on file Legal Sex Female 3:16 AM PORT CDL A DRIVER Gender Identity Not on file Sexual Orientation [...] AND GRAM STAIN Routine 03/05/2024 2:00 PM PORT CDL A DRIVER Abscess of arm, right TISSUE AEROBIC AND ANAEROBIC CULTURE AND GRAM STAIN Routine 03/05/2024 1:50 PM PORT CDL A DRIVER Skin ulcer of upper arm, with fat layer exposed (HCC) HEPATITIS PANEL, ACUTE Routine 09/05/2023 12:54 PM CDT from Last 3 Months or Most Recently Relevant to Health Maintenance Results * (ABNORMAL) Aerobic and anaerobic culture and gram stain Wound Arm, right (03/05/2024 2:00 PM PORT CDL A DRIVER) Direct Specimen Exam Stain: No polymorphonuclear leukocytes seen. No organisms seen. Comment:Testing performed by : [facility], [address] [place]., [address] Report Final Report: Few Staphylococcus aureus Methicillin resistant (MRSA) by penicillin binding protein 2a (PBP2a) testing. Few Streptococcus pyogenes (Group A Streptococci) Streptococcus pyogenes is uniformly susceptible to beta-lactam antibiotics and vancomycin. ??Routine susceptibility testing is not performed. (.) LAURA HORN (PRATIB[place]) Comment:Testing performed by : [facility], [address] [place]., [address] Organism STAPHYLOCOCCUS AUREUS LAURA HORN (PRATIBHA) Organism STREPTOCOCCUS PYOGENES (GROUP A STREPTOCOCCI) LAURA HORN (PRAT[place]) Wound (Arm, right) 03/05/2024 2:00 PM PORT CDL A DRIVER 03/05/2024 7:46 PM PORT CDL A DRIVER Narrative LAURA HORN (PRATIBHA) - 03/09/2024 8:13 AM PORT CDL A DRIVER Specimen received on an ESwab. Testing performed by [facility] ([phone]) Specimens submitted from normally sterile body sites [...] RDERABLES Final Result LAURA HORN (PRAT[place]) 1 [facility] Department [place] [address] * (ABNORMAL) Tissue aerobic and anaerobic culture and gram stain Tissue Arm, left (03/05/2024 1:50 PMCST) Direct Specimen Exam Stain: No polymorphonuclear leukocytes seen. Moderate Gram Positive Cocci Comment:Testing performed by : [facility], [address] [place] [address]., [id number] Report Final Report: Moderate Staphylococcus aureus Methicillin resistant (MRSA) by penicillin binding protein 2a (PBP2a) testing. Moderate Streptococcus pyogenes (Group A Streptococci) Streptococcus pyogenes is uniformly susceptible to beta-lactam antibiotics and vancomycin. ??Routine susceptibility testing is not performed. (.) LAURA HORN (PRATIBHA) Comment:Testing performed by : [facility], [address] [place] [address]., [id number] Organism STAPHYLOCOCCUS AUREUS LAURA HORN (PRATIBHA) Organism STREPTOCOCCUS PYOGENES (GROUP A STREPTOCOCCI) LAURA HORN (PRATIBHA) Tissue (Arm, left) 03/05/2024 1:50 PM PORT CDL A DRIVER 03/05/2024 7:42 PM PORT CDL A DRIVER Narrative LAURA HORN (PRATIBHA) - 03/09/2024 8:14 AM PORT CDL A DRIVER Testing performed by [facility] ([phone]) Specimens submitted from normally sterile body sites [...] O RDERABLES Final Result Performing Organization Address City/[facility]/ZIP Co de Phone Number LAURA HORN ([place]) 1 [facility] Department [place] [address] * Hepatitis panel, acute Blood (09/05/2023 12:54 [...] on 19. Hep C Ab Nonreactive Nonreactive [facility] Comment: Interpretive Data Nonreactive: Antibodies to HCV [...] last revised on 2019. HepBsAg Nonreactive Nonreactive [facility] Blood 09/05/2023 12:5 4 PM CDT 09/05/2023 1:19 PM CDT Janet Borges MD LAB M ICROBIOLOGY - GENERAL ORDERABLES Final Result LAURA [address] [address] Department [place] [address] from Last 3 Months or Most Recently Relevant to Health Maintenance Additional Health Concerns Infection Onset Date Last Indicated MRSA Comment:Wound from arm - 09/03/2023, 09/04/2023 09/03/20232023 Insurance [facility] Advance Directives For more information, please contact: [phone] * Full Code (Latest Code Status on [...] 1:05 PM 03/07/2020 1:54 PM Care Teams Senior Mechanical Technician Relationship Specialty Start Date End Date No, Physician PCP - General 01/31/21 Rashaun Benavidez MD [address] [place] [address] Consulting Physician Cardiology 07/08/22 Miscellaneous, Not In File 07/08/22
--- OUTSIDE RECORDS SUMMARY | 2024-03-13 06:44 | XMS_ITS | Encounter Summary ---
Author Organization [facility] Healthcare Address [address] [place] [address] Care Team Providers Care Vehicle Fuel Systems Converter Name Role Phone No, Physician Primary Care Provider [phone] Rashaun Benavidez MD Unavailable [phone] Miscellaneous, Not In File Unavailable Unava ilable Encounter Details Date Type Department Care Team (Late st Contact Info) Description 11/09/2023 2:30 PM CDT Office Visit [facility] for Wound Care and Hyperbaric Medicine [address] [place] [address] Ulcer with gangrene, with fat layer exposed (HCC) Social History Tobacco Use Types Packs/Day Years Used Date Smoking Tobacco: Never Smokeless Tobacco: Never Alcohol Use Standard Drinks/Week Comments Not Currently 0 (1 standard drink = 0.6 oz pur e alcohol) [facility] Utilities Answer Date Recorded In the past 12 months has [employer] electric, gas, oil, or water company threatened [...] week 09/05/2023 How often do you attend anabaptist or temple serv ices? Never 09/05/2023 Do you belong to any clubs o r organizations such as anabaptist groups, unions, fraternal or athletic groups, or [...] in a fpc (including now)? No 08/06/2022 Housing Stability Vital [...] time in the past 12 m [facility], were you homeless or living in a fpc (including now)? No 09/05/2023 Personal Safety Answer Date Recorded Have you ever been in or are you currently in a harmful physical or emotional relationship or is someone making you feel afraid or unsafe? 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 (.) LAURA HORN (PRATIBHA) Comment:Testing performed by : [facility], [address] [place] [address]., [id number] Organism STAPHYLOCOCCUS AUREUS LAURA HORN (PRATIB[place]) Tissue (Arm, right) 11/09/2023 4:30 PM CDT 11/09/2023 7:37 PM CDT Narrative LAURA HORN (PRATIBHA) - 11/16/2023 2:34 PM CDT Testing performed by [facility] ([phone]) Specimens submitted from normally sterile body sites [...] GENERAL O RDERABLES Final Result [facility] ([place]) 1 [facility] Department of Laboratories [place], [place] [id number] documented in this encounter Visit Diagnoses Diagnosis Ulcer with gangrene, with fat layer exposed (HCC) documented in this encounter Additional Health Concerns Infection Onset Date Last Indicated Resolved Time MRSA Comment:Wound from arm - 09/03/2023, 09/04/2023 09/03/2023 03/05/2024 documented as of this encounter Care Teams Vehicle Fuel Systems Converter Relationship Specialty Start Date End Date No, Physician PCP - General 01/31/21 Rashaun Benavidez MD [address] [place], [place] [address]AM [facility] [address] [place] [address] Consulting Physician Cardiology 07/08/22 Miscellaneous, Not In File 07/08/22 documented as of this encounter
--- OUTSIDE RECORDS SUMMARY | 2024-03-13 06:44 | XMS_ITS | Encounter Summary ---
Author Organization [facility] Healthcare Address [address] [place] [address] Care Team Providers Care Scientologist Name Role Phone No, Physician Primary Care Provider [phone] Rashaun Benavidez MD Unavailable [phone] Miscellaneous, Not In File Unavailable Unava ilable Encounter Details Date Type Department Care Team (Late st Contact Info) Description 10/13/2023 10:00 AM CDT Office Visit [facility] for Wound Care and Hyperbaric Medicine [address] [place] [address] Skin ulcer of upper arm, with fat layer exposed (HCC) Social History Tobacco Use Types Packs/Day Years Used Date Smoking Tobacco: Never Smokeless Tobacco: Never Alcohol Use Standard Drinks/Week Comments Not Currently 0 (1 standard drink = 0.6 oz pur e alcohol) [facility] Utilities Answer Date Recorded In the past 12 months has [employer] electric, gas, oil, or water company threatened [...] week 09/05/2023 How often do you attend denominational or judaism serv ices? 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, [address] [place]., [address] Report Final Report: Moderate Mixed microorganisms. Includes the following: Few Pseudomonas aeruginosa (.) LAURA HORN ([place]AT[place]) Comment:Testing performed by : [facility], [address] [place]., [address] Organism PSEUDOMONAS AERUGINOSA LAURA HORN (PRAT[place]) Organism MIXED MICROORGANISMS. LAURA HORN ([place]) Tissue (Arm, right) 10/13/2023 11:30 AM CDT 10/13/2023 7:41 PM CDT Narrative LAURA HORN ([place]) - 10/17/2023 3:09 PM CDT Testing performed by [facility] Laboratory ([phone]) Specimens submitted from normally sterile body sites [...] GENERAL O RDERABLES Final Result LAURA HORN ([place]) 1 [facility] Department [place] [address] documented in this encounter Visit Diagnoses Diagnosis Skin ulcer of upper arm, with fat layer exposed (HCC) documented in this encounter Additional Health Concerns Infection Onset Date Last Indicated Resolved Time MRSA Comment:Wound from arm - 09/03/2023, 09/04/2023 09/03/2023 03/05/2024 documented as of this encounter Care Teams Scientologist Relationship Specialty Start Date End Date No, Physician PCP - General 01/31/21 Rashaun Benavidez MD [address] [place] [id number] Consulting Physician Cardiology 07/08/22 Miscellaneous, Not In File 07/08/22 documented as of this encounter
--- OUTSIDE RECORDS SUMMARY | 2024-03-13 06:44 | XMS_ITS | Encounter Summary ---
Author Organization [facility] Healthcare Address [address] [place] [address] Care Team Providers Care Walking Dragline Oiler Name Role Phone No, Physician Primary Care Provider [phone] Rashaun Benavidez MD Unavailable [phone] Miscellaneous, Not In File Unavailable Unava ilable Encounter Details Date Type Department Care Team (Late st Contact Info) Description 03/05/2024 Orders Only [facility] for Wound Care and Hyperbaric Medicine [address] [place], [place] [id number] Anette Apple MD [address] [place] [address] [place] [address] Abscess of arm, right (Primary Dx); Skin ulcer of upper arm, with fat layer exposed (HCC) Social History Tobacco Use Types Packs/Day Years Used Date Smoking Tobacco: Never Smokeless Tobacco: Never Alcohol Use Standard Drinks/Week Comments Not Currently 0 (1 standard drink = 0.6 oz pur e alcohol) [facility] Utilities Answer Date Recorded In the past 12 months has [employer] electric, gas, oil, or water company threatened [...] week 09/05/2023 How often do you attend gnosticism or christianity serv ices? 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 No organisms seen. Comment:Testing performed by : [facility], [address] [place] [address]., [address] Report Final Report: Few Staphylococcus aureus Methicillin resistant (MRSA) by penicillin binding protein 2a (PBP2a) testing. Few Streptococcus pyogenes (Group A Streptococci) Streptococcus pyogenes is uniformly susceptible to beta-lactam antibiotics and vancomycin. ??Routine susceptibility testing is not performed. (.) LAURA HORN ([place]) Comment:Testing performed by : [facility], [address] [place] [address], [place]., [address] Organism STAPHYLOCOCCUS AUREUS LAURA HORN ([place]) Organism STREPTOCOCCUS PYOGENES (GROUP A STREPTOCOCCI) LAURA HORN ([place]) Wound (Arm, right) 03/05/2024 2:00 PM ROLLED OATS MILL OPERATOR 03/05/2024 7:46 PM ROLLED OATS MILL OPERATOR Narrative LAURA HORN ([place]) - 03/09/2024 8:13 AM ROLLED OATS MILL OPERATOR Specimen received on an ESwab. Testing performed by [facility] ([phone]) Specimens submitted from normally sterile body sites [...] RDERABLES Final Result LAURA HORN ([place]) 1 [facility] Department [place] [address] * (ABNORMAL) Tissue aerobic and anaerobic culture and gram stain Tissue Arm, left (03/05/2024 1:50 PMCST) Direct Specimen Exam Stain: No polymorphonuclear leukocytes seen. Moderate Gram Positive Cocci Comment:Testing performed by : [facility], [address] [place] [address], [place]., [address] Report Final Report: Moderate Staphylococcus aureus Methicillin resistant (MRSA) by penicillin binding protein 2a (PBP2a) testing. Moderate Streptococcus pyogenes (Group A Streptococci) Streptococcus pyogenes is uniformly susceptible to beta-lactam antibiotics and vancomycin. ??Routine susceptibility testing is not performed. (.) LAURA HORN ([place]) Comment:Testing performed by : [facility], [address] [place] [address], [place]., [address] Organism STAPHYLOCOCCUS AUREUS LAURA HORN ([place]) Organism STREPTOCOCCUS PYOGENES (GROUP A STREPTOCOCCI) LAURA HORN ([place]) Tissue (Arm, left) 03/05/2024 1:50 PM ROLLED OATS MILL OPERATOR 03/05/2024 7:42 PM ROLLED OATS MILL OPERATOR Narrative LAURA HORN ([place]) - 03/09/2024 8:14 AM ROLLED OATS MILL OPERATOR Testing performed by [facility] ([phone]) Specimens submitted from normally sterile body sites [...] RDERABLES Final Result LAURA HORN ([place]) 1 [facility] Department of Laboratories [place], [place] [address] documented in this encounter Visit Diagnoses Diagnosis [...] documented as of this encounter Care Teams Walking Dragline Oiler Relationship Specialty Start Date End Date No, Physician PCP - General 01/31/21 Rashaun Benavidez MD [address] [facility] [address] [address] [facility]31 Consulting Physician Cardiology 07/08/22 Miscellaneous, Not In File 07/08/22 documented as of this encounter
--- OUTSIDE RECORDS SUMMARY | 2024-03-13 06:44 | XMS_ITS | Encounter Summary ---
Author Organization [facility] Healthcare Address [address] [place] [address] Care Team Providers Care Customer Sales Consultant Name Role Phone No, Physician Primary Care Provider [phone] Rashaun Benavidez MD Unavailable [phone] Miscellaneous, Not In File Unavailable Unava ilable Encounter Details Date Type Department Care Team (Late st Contact Info) Description 10/13/2023 Orders Only [facility] for Wound Care and Hyperbaric Medicine [address] [place] [address] Anette Apple MD [address] [place] [address] [place] [address] Skin ulcer of upper arm, with fat layer exposed (HCC) (Primary Dx) Social History Tobacco Use Types Packs/Day Years Used Date Smoking Tobacco: Never Smokeless Tobacco: Never Alcohol Use Standard Drinks/Week Comments Not Currently 0 (1 standard drink = 0.6 oz pur e alcohol) [facility] Utilities Answer Date Recorded In the past 12 months has [employer], gas, oil, or water [employer] threatened to shut off services in your home? No 09/05/2023 Social Connection and Isolation Panel [NHANES] A nswer Date Recorded In a typical week, how many times do you talk on the phone with family, friends, or neighbors? Once a week 09/05/2023 How often do you get together with friends or re latives? Once a week 09/05/2023 How often do you attend hinduism or pentecostal serv ices? 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 Moderate Gram Positive Cocci Comment:Testing performed by : [facility], [address] [place]., [address] Report Final Report: Moderate Mixed microorganisms. Includes the following: Few Pseudomonas aeruginosa (.) LAURA HORN ([place]) Comment:Testing performed by : [facility], [address] [place]., [address] Organism PSEUDOMONAS AERUGINOSA LAURA HORN ([place]) Organism MIXED MICROORGANISMS. LAURA HORN ([place]) Tissue (Arm, right) 10/13/2023 11:30 AM CDT 10/13/2023 7:41 PM CDT Narrative LAURA HORN ([place]) - 10/17/2023 3:09 PM CDT Testing performed by [facility] Laboratory ([phone]) Specimens submitted from normally sterile body sites [...] GENERAL O ALEERAARMEN Final Result [facility] ([place]) 1 [facility] [place] [address] documented in this encounter Visit Diagnoses Diagnosis Skin ulcer of upper arm, with fat layer exposed (HCC) Skin ulcer of upper arm, with fat layer exposed (HCC)- Primary documented in this encounter Additional Health Concerns Infection Onset Date Last Indicated Resolved Time MRSA Comment:Wound from arm - 09/03/2023, 09/04/2023 09/03/2023 03/05/2024 documented as of this encounter Care Teams Customer Sales Consultant Relationship Specialty Start Date End Date No, Physician PCP - General 01/31/21 Rashaun Benavidez MD [address] [place] [address] Consulting Physician Cardiology 07/08/22 Miscellaneous, Not In File 07/08/22 documented as of this encounter
--- OUTSIDE RECORDS SUMMARY | 2024-03-13 06:44 | XMS_ITS | Encounter Summary ---
Author Organization [facility] Healthcare Address [address] [place] [address] Care Team Providers Care Board Member Name Role Phone No, Physician Primary Care Provider [phone] Rashaun Benavidez MD Unavailable [phone] Miscellaneous, Not In File Unavailable Unava ilable Encounter Details Date Type Department Care Team (Late st Contact Info) Description 10/20/2023 Orders Only [facility] for Wound Care and Hyperbaric Medicine [address] [place] [address] Anette Apple MD [address] [place] [address] [place] [address] Social History Tobacco Use Types Packs/Day Years Used Date Smoking Tobacco: Never Smokeless Tobacco: Never Alcohol Use Standard Drinks/Week Comments Not Currently 0 (1 standard drink = 0.6 oz pur e alcohol) [facility] Utilities Answer Date Recorded In the past 12 months has [employer], gas, oil, or water [employer] [place] threatened to shut off services in your [...] How often do you attend yarsanism or anglican serv ices? 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
--- OUTSIDE RECORDS SUMMARY | 2024-03-13 06:44 | XMS_ITS | Encounter Summary ---
Author Organization [facility] Healthcare Address [address] [place] [address] Care Team Providers Care Sales And Marketing Professional Name Role Phone No, Physician Primary Care Provider [phone] Rashaun Benavidez MD Unavailable [phone] Miscellaneous, Not In File Unavailable Unava ilable Encounter Details Date Type Department Care Team (Late st Contact Info) Description 12/07/2023 Orders Only [facility] [address] [place] [address] Anette Apple MD [address] [place] [address] [place] [address] Social History Tobacco Use Types Packs/Day Years Used Date Smoking Tobacco: Never Smokeless Tobacco: Never Alcohol Use Standard Drinks/Week Comments Not Currently 0 (1 standard drink = 0.6 oz pur e alcohol) [facility] Utilities Answer Date Recorded In the past 12 months has [employer], gas, oil, or water [employer] threatened to shut off services in your [...] often do you attend oriental orthodox or adventism serv ices? Never 09/05/2023 Do [...] place to sleep or slept in a half-way (including now)? No 08/06/2022 Housing Stability Vital [...] were you homeless or living in a half-way (including now)? No 09/05/2023 Personal Safety Answer Date Recorded Have you ever been in or are you currently in a harmful physical or emotional relationship or is someone making you feel afraid or unsafe? 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
--- OUTSIDE RECORDS SUMMARY | 2024-03-13 06:44 | XMS_ITS | Encounter Summary ---
Author Organization [facility] Healthcare Address [address] [place] [address] Care Team Providers Care Player Manager Name Role Phone No, Physician Primary Care Provider [phone] Rashaun Benavidez MD Unavailable [phone] Miscellaneous, Not In File Unavailable Unava ilable Encounter Details Date Type Department Care Team (Late st Contact Info) Description 03/05/2024 Orders Only [address] [id number] Anette Apple MD [address] [place] [address] [place] [address] Social History Tobacco Use Types Packs/Day Years Used Date Smoking Tobacco: Never Smokeless Tobacco: Never Alcohol Use Standard Drinks/Week Comments Not Currently 0 (1 standard drink = 0.6 oz pur e alcohol) [facility] Utilities Answer Date Recorded In the past 12 months has [employer], gas, oil, or water company threatened [...] week 09/05/2023 How often do you attend presybeterian or adventism serv ices? 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 Gender Identity Not on file Sexual Orientation Not on file documented as of this encounter Plan of Treatment Not on file documented as of this encounter Visit Diagnoses Not on filedocumented in this encounter Additional Health Concerns Infection Onset Date Last Indicated Resolved Time MRSA Comment:Wound from arm - 09/03/2023, 09/04/2023 09/03/2023 03/05/2024 documented as of this encounter Care Teams Player Manager Relationship Specialty Start Date End Date No, Physician PCP - General 01/31/21 Rashaun Benavidez MD [address] [facility] [address] [place] [id number] Consulting Physician Cardiology 07/08/22 Miscellaneous, Not In File 07/08/22 documented as of this encounter
--- OUTSIDE RECORDS SUMMARY | 2024-03-13 06:45 | XMS_ITS | Encounter Summary ---
Author Organization [facility] Healthcare Address [address] [place] [address] Care Team Providers Care Appointment Specialist Name Role Phone No, Physician Primary Care Provider Rashaun Benavidez MD Unavailable [phone] Miscellaneous, Not In File Unavailable Unava ilable Reason for Visit * Reason Comments Shortness of Breath X1 hour Encounter Details Date Type Department Care Team (Late st Contact Info) Description 07/19/2022 7:24 PM CDT - 07/20/2022 1:42 AM CDT Emergency [facility] Emergency Department [address] [place] [address] [place] [address] [place] [address] Chest pain, unspecified type (Primary Dx) Discharge [...] often do you attend chur ch or methodist services? Patient declined 07/05/2022 Do you belong [...] slept in a mcc (including now)? 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 * Chest Pain (AfterCare(R) Instructions(ER/ED)) (Filipino) documented in this encounter Medications at Time [...] Diagnosis Date Noted Opioid dependence with withdrawal ([facility]) ([facility]) 03/04/2020 Opioid abuse ([facility]) HFrEF (heart failure with reduced ejection fraction) ([facility]) ([facility]) Ventricular tachycardia ([facility]) 07/01/2022 Past Medical History: Diagnosis [...] fentanyl overdose s/p ICUstay [facility], wearing a life vest, here with SOB [...] Urine without Confirmation (07/19/2022 10:52 PM CDT) [facility] Amphetamine, ur Not Detected CutOff 500ng/mL [facility] Comment: Interpretive Data - Amphetamines: ??Samples containing greater than 500 ng/mL d-methamphetamine ??or other cross-reacting amphetamine compounds are reported as positive. ??Amphetamine immunoassays are subject to significant false positive rates due to cross-reactivity of non-amphetamine drugs. Current Interpretive Data was last reviewed 2018. Barbiturates, ur Not Detected CutOff 200ng/mL [facility] Comment: Interpretive Data - Barbiturates: ??Samples [...] 2018. Fentanyl, Ur Detected(A) Cutoff 1 ng/mL [facility] Comment: Interpretive Data - Fentanyls: ??Samples containing greater than 1 ng/mL fentanyl or other cross-reacting fentanyl compounds are reported as detected. ??False positive and false negative results are possible. Current Interpretive Data was last reviewed 2018. Methadone, ur Not Detected CutOff 300ng/mL [facility] Comment: Interpretive Data - Methadone: ??Samples containing greater than 300 ng/mL d,l-methadone or other cross-reacting compounds are reported as positive. ??False positive and false negative results are possible. Current Interpretive Data was last reviewed 2018. Opiates, ur Not Detected CutOff 300ng/mL [facility] Comment: Interpretive Data - Opiates: ??Samples containing greater than 300 ng/mL morphine or other cross-reacting compounds are reported as positive. ??False positive and false negative results are possible. Current Interpretive Data was last reviewed 2018. Oxycodone, ur Not Detected CutOff 100ng/mL [facility] Comment: Interpretive Data - Oxycodone: ??Samples containing greater than 100 ng/mL oxycodone or other cross-reacting compounds are reported as positive. ??False positive and false negative results are possible. ?? Current Interpretive Data was last reviewed 2018. Phencyclidine, ur Not Detected CutOff 25 ng/mL [facility] Comment: Interpretive Data - Phencyclidine: ??Samples containing greater than 25 ng/mL phencyclidine or other cross-reacting compounds are reported as positive. ??False positive and false negative results are possible. ?? Current Interpretive Data was last reviewed 2018. Urine Creatinine 37 mg/dL [facility] Comment: Interpretive Data Urine Creatinine: < 10 mg/dL is extremely dilute = or > 10 but < 20 mg/dL is dilute = or > 20 mg/dL is normal Current Interpretive Data was last revised on 2017. Urine 07/19/2022 10:5 2 PM CDT 07/19/2022 10:57 PM CDT Narrative [facility] - 07/19/2022 11:22 PM CDT Drug of Abuse screening is performed by immunoassay for medical purposes only. ??This is not to be used for Pain Management purposes. us Wendy Isaac MD LAB URINE ORDERABLES Final Resul t Performing Organization Address [facility] de Phone Number LAURA [address] Department [place] [address] * (ABNORMAL) Troponin T high-sensitivity 2-hour (07/19/2022 10:52 PM CDT) Trop T hs 26(H) <=14 ng/L [facility] Comment: Interpretive Data For further hscTnT resources including the diagnostic algorithm and an aid in interpretation, copy and paste this link: https://nrl.testcatalog.org/show/hsTrop Current Interpretive Data last revised 2020. Trop T hs delta 6 ng/L [facility] Trop T hs interp Equivocal [facility] Blood 07/19/2022 10:5 2 PM CDT 07/19/2022 10:58 PM CDT us Katie WATSON LAB BLOOD ORDERABLES Final Res ult Performing Organization Address [facility] Co de Phone Number LAURA CHAPARRO [address] Department [place] [address] * CT Chest PE (CTA) W Contrast [...] of the chest are intact. Procedure Note Krystyna Escobar MD - 07/20/2022 Examination: CTA chest [...] * Phosphorus (07/19/2022 7:56 PM CDT) Pathologist [facility] Phosphorus, pl 3.3 2.3 - 4.5 mg/dL [facility] Blood 07/19/2022 7:56 PM CDT 07/19/2022 8:57 PM CDT Wendy Isaac MD LAB BLOOD ORDERABLES Final Resul t Performing Organization Address [facility] Co de Phone Number [facility] [address] [place] [address] * Magnesium (07/19/2022 7:56 PM CDT) [facility] Magnesium 1.9 1.4 - 2.5 mg/dL [facility] Blood 07/19/2022 7:56 PM CDT 07/19/2022 8:57 PM CDT Wendy Isaac MD LAB BLOOD ORDERABLES Final Resul t Performing Organization Address [facility]/ZIP Co de Phone Number [facility] [address] Department [place] [address] * eGFR (07/19/2022 7:56 PM CDT) Pathologist [facility] eGFR 66 mL/min/1. 73 m2 [facility] Comment: Interpretive Data Reference Interval Normal ?>/= [...] ORDERABLES Final Res ult Performing Organization Address City/State/[facility] [place] Phone Number LAURA [address] Department [place] [address] * Differential, auto (07/19/2022 7:56 PM CDT) Neutrophil abs 6.4 1.7 - 6.5 K/cumm [facility] Imm gran abs 0.0 0.0 - 0.1 K/cumm [facility] CH Lymphocyte abs 1.5 0.8 - 3.3 K/cumm [facility] Monocyte abs 0.4 0.2 - 0.8 K/cumm [facility] Eosinophil abs 0.1 0.0 - 0.5 K/cumm [facility] Basophil abs 0.0 0.0 - 0.1 K/cumm [facility] Neutrophil pct 75.8 % [facility] Comment: Interpretive Data Percent cell [...] revised on 2017. Monocyte pct 5.1 % [facility] Comment: Interpretive Data Percent cell count reference [...] LAB BLOOD ORDERABLES Final Res ult LAURA [address] Department [place] [address] * (ABNORMAL) Troponin T high-sensitivity [...] MD LAB BLOOD ORDERABLES Final [facility]ul t [facility] [address] Department [place] [address] * Comprehensive metabolic panel (07/19/2022 7:56 PM CDT) Sodium 138 135 - 145 mmol/L [facility] Potassium, pl 3.4 3.3 - 4.9 mmol/L [facility] Chloride 102 97 - 110 mmol/L [facility] CO2 24 22 - 32 mmol/L [facility] Anion gap 12 2 - 15 mmol/L [facility] BUN 16 8 - 25 mg/dL [facility] Creatinine 1.08 0.60 - 1.10 mg/dL [facility] Glucose 124 70 - 199 mg/dL [facility] Comment: Interpretive Data Fasting glucose >/= 126 [...] ORDERABLES Final Resul t Performing Organization Address City/[facility] Co de Phone Number LAURA CHAPARRO [address] [place] [address] * (ABNORMAL) CBC with auto [...] ORDERABLES Final Resul t Performing Organization Address City/[facility]/ZIP Co de Phone Number LAURA CHAPARRO [address] Department [place] [address] * ECG 12 lead (07/19/2022 7:23 PM CDT) 07/19/2022 7:23 PM CDT Narrative [facility] - 07/20/2022 5:52 AM CDT Vent Rate: 97 bpm RR Interval: 614 msec VA Interval: 167 msec QRS Duration: 97 msec QT Interval: 298 msec QTC Interval: 353 msec P-R-T [place]: 6 - 15 - 97 degrees SINUS RHYTHM NONSPECIFIC T-WAVE ABNORMALITY ABNORMAL ECG No change from prior EKG Electronically Signed By: Néstor Norris MD us Wendy Isaac MD ECG ORDERABLES Final Result [facility] documented in this encounter Visit Diagnoses Diagnosis [...] 1 dose 0057 (Given - Provid er: Aliza Gallagher, ZANE) magnesium sulfate 2 g/50 mL [...] 07/19/2022 documented in this encounter Care Teams Appointment Specialist Relationship Specialty Start Date End Date No, Physician PCP - General 01/31/21 Rashaun Benavidez MD [address] [facility] [address] [address] Consulting Physician Cardiology 07/08/22 Miscellaneous, Not In File 07/08/22 documented as of this encounter
--- OUTSIDE RECORDS SUMMARY | 2024-03-13 06:45 | XMS_ITS | Encounter Summary ---
Author Organization [facility] Healthcare Address [address] [place] [address] Care Team Providers Care [place] Machine Operator Name Role Phone No, Physician Primary Care Provider [phone] Rashaun Benavidez MD Unavailable [phone] Miscellaneous, Not In File Unavailable Unava ilable [...] often do you attend chur ch or mormon services? Never 08/06/2022 Do you belong to any clubs o r organizations such as baptism groups, unions, fraternal or athletic groups, or [...] place to sleep or slept in a skilled nursing (including now)? No 08/06/2022 Personal Safety Answer Date Recorded Have you ever been in or are you currently in a harmful physical or emotional relationship or is someone making you feel afraid or unsafe? 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
--- OUTSIDE RECORDS SUMMARY | 2024-03-13 06:45 | XMS_ITS | Encounter Summary ---
Author Organization [facility] Healthcare Address [address] [place] [address] Care Team Providers Care Tax Examiner Name Role Phone No, Physician Primary Care Provider [phone] Rashaun Benavidez MD Unavailable [phone] Miscellaneous, Not In File Unavailable Unava ilable Reason for Visit * Reason Comments Dizziness Rapid Heart Rate * Auth/Cert (Routine) Specialty Diagnoses / Procedures Referred By Contac t Referred To Contact Diagnoses Lightheadedness T wave inversion in EKG Procedures na Referral ID Status Reason Start Date Expiration Date Visits Re quested Visits Authorized [id number] 1 1 Encounter Details Date Type Department Care Team (Latest Contact Info) Description 08/04/2022 12:59 PM CDT - 08/06/2022 6:30 PM [place] [address] [place] [address] [facility] [address] [place] [address] [place] [id number] [place] [address] [place] [address] [place] [id number] T wave inversion in EKG (Primary Dx); [...] How often do you attend chur or religion services? Never 08/06/2022 Do you belong to any clubs o r organizations such as yazdanism groups, unions, fraternal or athletic groups, or [...] place to sleep or slept in a longterm (including now)? No 08/06/2022 Personal Safety Answer Date Recorded Have you ever been in or are you currently in a harmful physical or emotional relationship or is someone making you feel afraid or unsafe? 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 Gender Identity Not on file Sexual Orientation [...] Patient Age - 41 yrs Patient - [id number] [facility] - [id number] Document Creation Date: 08/06/2022 Admitting Provider, : Michael Piedra DO Discharge Provider, : Antonio Akins DO Primary Care Physician at Discharge: Sadaf, Physician [phone] Admission Date: 08/04/2022 Discharge Date/time: 08/06/2022 Admission Location: [facility] LOS - LOS: 2 days DETAILS OF HOSPITAL STAY Hospital Problems/Diagnoses Principal Problem: T wave inversion in EKG Active Problems: Ventricular tachycardia (HCC) Opioid abuse (HCC) HFrEF (heart failure with reduced ejection fraction) ([facility]/HCC) (HCC) Reason for Hospitalization: Patient is [...] She was then taken to the Cardiac [facility]orer or[facility]. The angiogram showed clean coronary arteries. An [...] Your Medications These medications were sent to [facility] [address] [address] escitalopram 20 mg tablet hydrOXYzine 25 mg [...] Center 08/19/2022 1:30 PM Ronny Barrientos MD [facility] Specialty 10/19/2022 9:00 AM Rashaun Benavidez MD [facility] Specialty Please schedule an appointment with the following provider(s): No follow-up provider specified. ANCILLARY INFORMATION Other Procedures & Diagnostic Tests: Transthoracic Echo (TTE) Limited/Followup Result Date: 08/05/2022 [facility] [id number] [place] [id number] Limited Echocardiogram Report Patient Name: MARGY SALDANA N : 1980 Study Date:08/05/2022 12:14:16 PM Gender: F Tech: Location: [id number] Ref Provider: Robert HERNANDEZ(Cm): 165 BSA: 1.84 [...] Rate: 58 bpm RR Interval: 1027 msec VA Interval: 163 msec QRS Duration: 108 msec QT Interval: 457 msec QTC Interval: 454 msec P-R-T Alpha: 5 - 4 - 94 degrees SINUS BRADYCARDIA MARKED T-WAVE ABNORMALITY, CONSIDER ANTEROLATERAL ISCHEMIA [- 0.5+ mV T-WAVE IN I/aVL/V3-V6] ABNORMAL ECG Compared to July 19, 2022, T-wave inversion appears to be deeper in leads V1, V2, new T inversion in leads V3 to V 5 Electronically Signed By: Dr. Romelia Kruse [facility] XR Chest 1 Vw Portable Result Date: [...] BUN SERUM mg/dL 15 CREATININE mg/dL 0.93 MYB-OFQ-NJIXRON mL/min/1.73 m2 79 GLUCOSE mg/dL 115 CALCIUM [...] Prevention Hotline (Available by calling or texting 338 to speak with a counselor for support or additional resources) Behavioral Health Response [phone] or [phone] (Crisis hotline or additional resources) [facility] Behavioral Health [phone] (Crisis hotline) [facility] Behavioral Health Urgent Care [phone] (walk in urgent care for mental health) Tuesday - Tuesday MOBILE OUTREACH SERVICES TO ASSIST IN LOCATING OUTPATIENT CARE FOR MENTAL HEALTH Behavioral Health Response [phone] (Contact and request a mobile outreach to establish community mental health care for [facility] and [facility]) Disaster Hotline (Contact to request assistance in establishing community mental health care in [facility]) COMMUNITY [facility] CENTERS FOR UNINSURED OR MEDICAID [facility] Behavioral Health [phone] ([facility], [facility], [facility], [facility], and [facility]) [place] [phone] ([facility]) [facility] [phone] ([facility]) [place] ([facility]) [facility] [phone] ([facility]) [place] [phone] ([place] [facility]) SUBSTANCE USE TREATMENT [facility] [phone] (opioid response project for [place] residents) [facility] (drug and alcohol treatment) [facility] [phone] (inpatient and outpatient rehabilitation services) [place] ([place] option for treatment) [facility] ([place] option for treatment) [facility] Off- [phone]- ([place] option for assistance in locating treatment) .mhc [...] Walters LCSW - 08/06/2022 3:30 PM CDT [facility] received message from Dr. Akins that patient wants to discharge at this time. Asked for outpatient mental health resources. [facility] provided outpatient mental health resources in [facility]. Dr. Mable DO was notified that [facility] will cancel psychiatry consult at this time. [...] shocks on 06/30 and was transferred to [facility] on 07/01. 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 She was discharged home on 07/08/2022 with LifeVest and on metoprolol succinate 25 mg p.o. daily and losartan 12.5 mg p.o. b.i.d.. She presented to the emergency roomat [facility] on 08/04/2022 with complaints of [...] Patient had recurrent polymorphic VT in 06/2022. Gideon to be secondary to acquired long QT [...] Behavioral Health QMHP entered consult request into [facility] Portal at 1205. Reason for consult: Anxiety, Depression and medication recommendation. [facility] staff will be contacting [facility] at phone number: [phone]. Psychiatrist will use this number to start video assessment as well. Please have equipment charged and ready. Device ID given to [facility] is: [email or web address] [id number]. This consult is a/an inpatient urgent video consult which has a median time of EIGHT hours to be completed. [facility] will monitor consult timeframe and contact [facility] as necessary. For inpatient consults, [facility] should not call after 2300 to start a consult and patient will be seen the next morning. For Emergency Department consults, [facility] sees the patient 18/10. Behavioral Health QMHP spoke/messaged with Dr. Akins at [facility] and updated them on status. [...] She was then taken to the Cardiac laborer [facility]. The angiogram showed clean coronary arteries. An [...] Echo (TTE) Limited/Followup Result Date: 08/05/2022 Narrative: [place] [address] Limited Echocardiogram Report Patient Name: MARGY SALDANA N : 1980 Study Date: 08/05/2022 12:14:16 PM Gender: F Tech: Location: [place] [address] Ref Provider: RENALDO HERNANDEZHeight(Cm): 165 BSA: 1.84 [...] Rate: 58 bpm RR Interval: 1027 msec VA Interval: 163 msec QRS Duration: 108 msec QTInterval: 457 msec QTC Interval: 454 msec P-R-T Alpha: 5 - 4 - 94 degrees SINUS BRADYCARDIA MARKED T-WAVE ABNORMALITY, CONSIDER ANTEROLATERAL ISCHEMIA [-0.5+ mV T-WAVE IN I/aVL/V3-V6] ABNORMAL ECG Compared to July 19, 2022, T-wave inversion appears to be deeper in leads V1, V2, new T inversion in leads V3 to V5 Electronically Signed By: Dr. Romelia Kruse [facility] XR Chest 1 Vw Portable Result Date: [...] 298 msec QTC Interval: 353 msec P-R-T Alpha: 6 - 15 - 97 degrees SINUS [...] Rate: 78 bpm RR Interval: 765 msec VA Interval: 168 msec QRS Duration: 92 msec QT Interval: 410 msec QTC Interval: 443 msec P-R-T Alpha: 28 - 10 - 29 degrees SINUS RHYTHM NONSPECIFIC T-WAVE ABNORMALITY BORDERLINE ECG INTERPRETATION BASED ON A DEFAULT AGE OF 40 YEARS Electronically Signed By: Dr. Romelia Kruse [facility] ECG 12 lead Result Date: 07/07/2022 Narrative: Vent Rate: 69 bpm RR Interval: 860 msec VA Interval: 154 msec QRS Duration: 95 msec QT Interval: 446 msec QTC Interval: 466 msec P-R-T Alpha: 19 - 13 - -9 degrees SINUS RHYTHM NORMAL ECG Electronically Signed By: Dr. Romelia Kruse [facility]/PLAN Principal Problem: T wave inversion in [...] PM CDT Primary Care Physician: Sadaf, Physician [phone] SUBJECTIVE HPI: Margy Saldana is a 41 y.o. female admitted to [facility] on 08/04/2022. Pt history obtained from review of medical records in [facility] and interview with patient. Pt with HTN, torsades de point,and Takotsubo cardiomyopathy with EF of 28%. She was admitted in early June with chest pain and palpitations after using some fentanyl which was likely laced with some other drug. She went into polymorphic V T. She was treated with amiodarone, lidocaine and magnesium. She was then taken to the Card[facility] lab[facility] or[facility]. The angiogram showed clean coronary arteries. An [...] Counseled about complete discontinuation of drug use. dean of student services consulted. Uncontrolled anxiety. Starting Lexapro. May benefit from outpatient mental health evaluation and counseling. dean of student services consulted DVT Prophylaxis: Lovenox Code Status: Full Code Estimated Length of Stay: 1-2 Days Voice recognition software ([employer]) was used to complete this document. Despite proofreading, sand mixer machine variances and typographical errors may occur. Fred Rodriguez MD 08/04/2022 9:18 PM documented in this encounter Consult Notes * Snow Davidson - 08/06/2022 2:40 PM CDTAssociated Order(s): CONSULT TO BEHAVIORAL HEALTH [facility] Is [facility] consult complete? Other Behavioral Health Intervention Services (I) [facility] Consult Note Date: 08/06/22 Patient Name: Margy Saldana Medical Record: [id number] Date of : 1980 [facility] consult ordered by Stefany Winkler DO for requesting psychiatry consult for treatment of anxiety and depression . [facility] spoke/messaged with Dr. Akins who reports he would like psychiatry to contact him following the consultation. [facility] will notify Psychiatry. Per EMR, patient has not expressed any thoughts of harming self or others. C-SSRS risk upon admission was no risk. ADDITIONAL ASSESSMENTS: None Snow Davidson [facility] Telehealth Patient? No * Josee Calixto MSW - 08/05/2022 6:03 PM CDTAssociated Order(s): CONSULT TO BEHAVIORAL HEALTH [facility] Behavioral Health Services [facility] Substance Use Consult Is patient agreeable to complete consult? No Date: 08/05/22 Patient Name: Margy Saldana Preferred Name: Medical Record: [id number] Date of : 1980 [facility] Substance Use consult ordered by Dr. Akins [...] participate in this patient's care. ARIC Weber [facility] Telehealth Patient? No * Rashaun Benavidez MD [...] seen in June 2022 after presenting to [facility] with episodes of chest pain, palpitations or presyncope. 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 Coronary angiogram at that time showed no obstructive coronary disease. She still had repeated episodes of polymorphic ventricular tachycardia requiring external defibrillations. Patient transferred to [facility] for further management. She was weaned off lidocaine drip, and after a QTC had normalized, patient wasmaintained on metoprolol 25 mg XL. Due to takotsubo cardiomyopathy diagnosed during this admission,patient was discharged with a LifeVest. Patient presented to [facility] ER on 07/19. She states [...] 56 %. Cardiac catheterization: 06/2022 [facility] at [facility] without CAD I personally reviewed the CXR [...] care. Rashaun Benavidez MD Clinical Cardiac Electrophysiology [facility]-Cardiology at 12:25 PM [...] shocks on 06/30 and was transferred to [facility] on 07/01. 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 She was discharged home on 07/08/2022 with LifeVest and on metoprolol succinate 25 mg p.o. daily and losartan 12.5 mg p.o. b.i.d.. She presented to the emergency roomat [facility] on 08/04/2022 with complaints of [...] inferior segment. Cardiac catheterization done 06/30/2022 at [facility], which I personally reviewed, demonstrated normal coronary [...] Patient had recurrent polymorphic VT in 06/2022. Gideon to be secondary to acquired long QT [...] Diagnosis Date Noted Opioid dependence with withdrawal ([facility] ([facility]) 03/04/2020 T wave inversion in EKG 08/04/2022 Opioid abuse ([facility]) HFrEF (heart failure with reduced ejection fraction) ([facility] ([facility]) Ventricular tachycardia ([facility]) 07/01/2022 Past Medical History: Diagnosis [...] No active disease. Electronically signed by: Cuauhtemoc eLo M.D. 6:15 PM Sinus rhythm, rate 55. QRS, VA, QT Interval WNL. Normal axis. No ST [...] of the T- wave inversions. I used [employer] chart to update him of the new [...] Beat Plan Includes: Cardiology consult, Continue metoprolol, dean of student services consulted Primary Source of Transportation: Does the patient need discharge transport arranged?: No Has discharge transport been arranged?: No (08/06/22 154) Health Insurance Coverage: [place] Medicaid Prescription Coverage: yes Pharmacy: [facility] [place] - [address] [facility] [address] [facility] [phone] [id number] [place], [place] [address] [facility] [address] [address] [facility] [phone] Primary Care Provider: No, Physician Prior to Admission: Primary Caregiver: Self Who does the patient or legal guardian want to receive education instruction and discharge plans for after care assistance?: Decline Caregiver Name: Tila Cuevas Relationship to patient: Mother Caregiver Contact Information: [phone] Support System: Parent, Children Support system contact info (name, phone, availablity): Tila Cuevas [phone] Home Care Services: No Durable Medical Equipment: [...] a week How often do you attend yazdanism or religion services?: Never Do you belong to any clubs or organizations such as yazdanism groups, unions, fraternal or athletic groups, or [...] (Pt reports that she has used used [place] for detox in the past andhas spoke [...] form. Pt has no income and has [place] Medicaid. Pcp is [facility] in [place], [place]. Pt request bedside delivery of meds. She also reports being behind with electric Mc4. SW provided a referral list. A list [...] Collaboration with patient, MD, direct care nurse, Benefit Authorizer, and other members of the health care team to assure needed interventions completed. 2. Return patient to optimal level of self-care post discharge. 3. Steam Table Attendant will follow for Discharge Planning - interventions as needed 4. Anticipated level of care at discharge 5. Planned Discharge Disposition ARIC Corrales Benefit Authorizer Case Management\ [phone] * Plan of Care - Ophelia Duran [...] concerns. Rashaun Benavidez MD Clinical Cardiac Electrophysiology [facility]-Cardiology at 8:03 AM [...] PM CDT Narrative 08/05/2022 1:23 [place] [address] Limited Echocardiogram Report Patient Name: MARGY SALDANA N : 1980 Study Date: 08/05/2022 12:14:16 PM Gender: F Tech: Location: [id number] [facility] Provider: RENALDO HERNANDEZHeight(Cm): 165 BSA: 1.84 Weight(Kg): [...] Procedure Note Stefany Winkler DO - 08/05/2022 [place] [address] Limited Echocardiogram Report Patient Name: MARGY SALDANA NPatient ID: [id number] : [id number] Date: 08/05/2022 12:14:16 PM Gender: FAccession #: [id number] Tech: CHLocation: [id number] Ref Provider: RENALDO HERNANDEZHeight(Cm): 165 BSA: 1.84Weight(Kg): [...] 2022-08-05 13:23:40 CDT CC: CC: CC: [facility] CV ECHO PROCEDURES Final Result * (ABNORMAL) [...] 2018. Barbiturates, ur Not Detected CutOff 200ng/mL [facility] Comment: Interpretive Data - Barbiturates: ??Samples containing [...] 2018. Cocaine, ur Not Detected CutOff 150ng/mL [facility] Comment: Interpretive Data - Cocaine: ??Samples containing greater than 150 ng/mL benzoylecgonine or other cross-reacting compounds are reported as positive. False positive and false negative results are possible. Current Interpretive Data was last reviewed 2018. Fentanyl, Ur Detected(A) Cutoff 1 ng/mL [facility] Comment: Interpretive Data - Fentanyls: ??Samples containing greater than 1 ng/mL fentanyl or other cross-reacting fentanyl compounds are reported as detected. ??False positive and false negative results are possible. Current Interpretive Data was last reviewed 2018. Methadone, ur Not Detected CutOff 300ng/mL [facility] Comment: Interpretive Data - Methadone: ??Samples containing greater than 300 ng/mL d,l-methadone or other cross-reacting compounds are reported as positive. ??False positive and false negative results are possible. Current Interpretive Data was last reviewed 2018. Opiates, ur Not Detected CutOff 300ng/mL [facility] Comment: Interpretive Data - Opiates: ??Samples containing greater than 300 ng/mL morphine or other cross-reacting compounds are reported as positive. ??False positive and false negative results are possible. Current Interpretive Data was last reviewed 2018. Oxycodone, ur Not Detected CutOff 100ng/mL [facility] Comment: Interpretive Data - Oxycodone: ??Samples containing greater than 100 ng/mL oxycodone or other cross-reacting compounds are reported as positive. ??False positive and false negative results are possible. ?? Current Interpretive Data was last reviewed 2018. Phencyclidine, ur Not Detected CutOff 25 ng/mL [facility] Comment: Interpretive Data - Phencyclidine: ??Samples containing greater than 25 ng/mL phencyclidine or other cross-reacting compounds are reported as positive. ??False positive and false negative results are possible. ?? Current Interpretive Data was last reviewed 2018. Urine Creatinine 83 mg/dL [facility] Comment: Interpretive Data Urine Creatinine: < 10 mg/dL is extremely dilute = or > 10 but < 20 mg/dL is dilute = or > 20 mg/dL is normal Current Interpretive Data was last revised on 2017. Urine 08/04/2022 7:08 PM CDT 08/04/2022 7:16 PM CDT Narrative [facility] - 08/04/2022 8:14 PM CDT Drug of Abuse screening is performed by immunoassay for medical purposes only. ??This is not to be used for Pain Management purposes. Result [facility] Austyn Fitzgerald MD LAB URINE ORDERABLES Final Result Performing Organization Address [facility] de Phone Number [facility] [address] [address] [facility] [place] [address] * Troponin T high-sensitivity 4-hour (08/04/2022 6:05 PM CDT) Trop T hs 7 <=14 ng/L [facility] Comment: Interpretive Data For further hscTnT resources including the diagnostic algorithm and an aid in interpretation, copy and paste this link: https://nrl.O[employer]P Pro.org/show/hsTrop Current Interpretive Data last revised 2020. Trop T hs delta -3 ng/L CERNER Trop T hs interp Insignificant CERNER Blood 08/04/2022 6:05 PM CDT 08/04/2022 6:05 PM CDT Result [facility] Donna Cabral MD LAB BLOOD ORDERABLES F inal Result Performing Organization Address [facility] de Phone Number [facility] [address] [address] [facility] [place] [address] * Troponin T high-sensitivity 2-hour (08/04/2022 4:43 PM CDT) Trop T hs 8 <=14 ng/L [facility] Comment: Interpretive Data For further hscTnT resources including the diagnostic algorithm and an aid in interpretation, copy and paste this link: https://nrl.O[employer] Pro.org/show/hsTrop Current Interpretive Data last revised 2020. Trop T hs delta -2 ng/L [facility] Trop T hs interp Insignificant CERNER CH Blood 08/04/2022 4:43 PM CDT 08/04/2022 4:43 PM CDT Result [facility] Donna Cabral MD LAB BLOOD ORDERABLES F inal Result Performing Organization Address [facility] Co de Phone Number [facility] [address] [address] [place] [address] * Magnesium (08/04/2022 2:03 PM CDT) Pathologist [facility] Magnesium 2.0 1.4 - 2.5 mg/dL [facility] Blood 08/04/2022 2:03 PM CDT 08/04/2022 4:57 PM CDT Austyn Fitzgerald MD LAB BLOOD ORDERABLES Final Result Performing Organization Address [facility] de Phone Number [facility] [address] [address] [place] [address] * eGFR (08/04/2022 2:03 PM CDT) Pathologist [facility] eGFR 79 mL/min/1. 73 m2 [facility] Comment: Interpretive Data Reference Interval Normal ?>/= [...] MD LAB BLOOD ORDERABLES F inal Result [facility] [address] [address] Department [place] [address] * Differential, auto (08/04/2022 2:03 PM CDT) Neutrophil abs 5.1 1.7 - 6.5 K/cumm [facility] Imm gran abs 0.0 0.0 - 0.1 K/cumm [facility] Lymphocyte abs 1.2 0.8 - 3.3 K/cumm [facility] Monocyte abs 0.4 0.2 - 0.8 K/cumm [facility] Eosinophil abs 0.1 0.0 - 0.5 K/cumm [facility] Basophil abs 0.0 0.0 - 0.1 K/cumm [facility] Neutrophil pct 75.0 % [facility] Comment: Interpretive Data Percent cell count reference ranges are not reported, since discordance with absolute values may lead to misinterpretation of CBC data. Current Interpretive Data was last revised on 2017. Imm gran pct 0.3 % [facility] Comment: Interpretive Data Percent cell count reference ranges are not reported, since discordance with absolute values may lead to misinterpretation of CBC data. Current Interpretive Data was last revised on 2017. Lymphocyte pct 17.6 % [facility] Comment: Interpretive Data Percent cell count reference ranges are not reported, since discordance with absolute values may lead to misinterpretation of CBC data. Current Interpretive Data was last revised on 2017. Monocyte pct 5.6 % [facility] Comment: Interpretive Data Percent cell count reference ranges are not reported, since discordance with absolute values may lead to misinterpretation of CBC data. Current Interpretive Data was last revised on 2017. Eosinophil pct 1.2 % [facility] Comment: Interpretive Data Percent cell count reference [...] BLOOD ORDERABLES Final Result Performing Organization Address [facility] de Phone Number DONNATRAVIS CHAPARRO [address] [place] [address] * Troponin T high-sensitivity series [...] d Result - Final Performing Organization Address [facility] Co de Phone Number LAURA CHAPARRO [address] [employer] [place], [place] [id number] * Comprehensive metabolic panel (08/04/2022 2:03 PM [...] Fitzgerald MD LAB BLOOD ORDERABLES Final Result [facility] [address] Department [place] [address] * (ABNORMAL) CBC with auto differential (08/04/2022 [...] LAB BLOOD ORDERABLES Final Result LAURA CHAPARRO [address] [place] [address] * XR Chest 1 Vw Portable (08/04/2022 [...] Electronically signed by: Cuauhtemoc Leo M.D. us Ausytn Fitzgerald MD IMG XR PROCEDURES Final Re sult * ECG 12 lead (08/04/2022 12:55 PM CDT) 08/04/2022 12:5 5 PM CDT Narrative [facility] - 08/04/2022 3:06 PM CDT Vent Rate: 58 bpm RR Interval: 1027 msec VA Interval: 163 msec QRS Duration: 108 msec QT Interval: 457 msec QTC Interval: 454 msec P-R-T Alpha: 5 - 4 - 94 degrees SINUS BRADYCARDIA MARKED T-WAVE ABNORMALITY, CONSIDER ANTEROLATERAL ISCHEMIA ??[-0.5+ mV T-WAVE IN I/aVL/V3-V6] ABNORMAL ECG Compared to July 19, 2022, T-wave inversion appears to be deeper in leads V1, V2, new T inversion in leads V3 to V5 Electronically Signed By: Dr. Romelia Kruse [facility] us Austyn Fitzgerald MD ECG ORDERABLES Final Resu lt [facility] documented in this encounter Visit Diagnoses Diagnosis T wave inversion in EKG- Primary Lightheadedness Dizziness and giddiness T wave inversion in EKG Opioid abuse (HCC) Nondependent opioid abuse, unspecified HFrEF (heart failure with reduced ejection fraction) ([facility]/HCC) (HCC) Ventricular tachycardia ([facility]) Paroxysmal ventricular tachycardia documented in this encounter [...] 08/04/2022 documented in this encounter Care Teams Tax Examiner Relationship Specialty Start Date End Date No, Physician PCP - General 01/31/21 Rashaun Benavidez MD [address] [address] Consulting Physician Cardiology 07/08/22 Miscellaneous, Not In File 07/08/22 documented as of this encounter
--- OUTSIDE RECORDS SUMMARY | 2024-03-13 06:45 | XMS_ITS | Encounter Summary ---
Author Organization [facility] Address [address] [facility] [address] [place] [address] Care Team Providers Care Leadership Recruiter Name Role Phone No, Physician Primary Care Provider [phone] Rashaun Benavidez MD Unavailable [phone] Miscellaneous, Not In File Unavailable Unava ilable Encounter Details Date Type Department Care Team (Late st Contact Info) Description 07/21/2022 Telephone [facility] Cardiology [address] [phone] Lucinda Murcia NP [address] [address] Social History Tobacco Use Types [...] often do you attend chur ch or catholic services? Never 08/06/2022 Do you belong to any clubs o r organizations such as protestant groups, unions, fraternal or athletic groups, or [...] place to sleep or slept in a residential (including now)? No 08/06/2022 Personal Safety Answer Date Recorded Have you ever been in or are you currently in a harmful physical or emotional relationship or is someone making you feel afraid or unsafe? 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 Contact [phone] * Telephone Encounter - Rosio Jimenez RN [...] However her magnesium is still low. Contact [phone] * Telephone Encounter - Aysha Dye RN [...] on filedocumented in this encounter Care Teams Leadership Recruiter Relationship Specialty Start Date End Date No, Physician PCP - General 01/31/21 Rashaun Benavidez MD [facility] [place] [id number] Consulting Physician Cardiology 07/08/22 Miscellaneous, Not In File 07/08/22 documented as of this encounter
--- OUTSIDE RECORDS SUMMARY | 2024-03-13 06:45 | XMS_ITS | Encounter Summary ---
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 butter, nuts, beans, fish, eggs, cheese, Mauritian yogurt, etc.) in your diet to printer helper in wound healing. Additional information is available online at [email or web address] Please call the dietitian's office at [phone] if you have questions about nutrition. If you would like to see our outpatient dietitian please have your physician fax a referral to [phone], and you may call [phone] to make an appointment. For any other questions you can call and ask to be connected to the floor that you were discharged from. Nutrition Follow-Up : 09/08/[address], LD * Gayathri Campos M.A. - 09/04/2023 8:51 AM CDTAssociated Order(s): CONSULT TO BEHAVIORAL HEALTH [facility] Behavioral Health Integration Services ([facility]) [facility] Initial Assessment Date: 09/04/23 Assessment Start time: [...] is currently on the inpatient unit at [facility]. Gely Allen is a 42 y.o. [...] bipolar disorder. Patient is also interested in [facility] for her opioid/opiate use. Patient states that no one knows I use, and so did not give consent for collateral. Patient denies homicidal thoughts. Patient denies any paranoia, hallucinations or delusions. Patient admits to drinking alcohol. Last use: like months ago . Patient admits to using fentanyl Referral made to [facility] ([place] area only), , to facilitate transfer to a treatment program at discharge. [facility] will contact the patient directly today. [facility] will communicate directly with the patient for the duration of her stay. [facility] will provide follow up instructions directly tothe patient. [facility] will contact the assigned Conveyor Technician/Range Master for discharge date. There are no affidavits related to this encounter to review for patient at [facility]. Recommendations: /DO Lange and [facility] discussed patient disposition. Based on the clinical presentation of patient wanting medication recommendations for anxiety while in the hospital, telapsychiatry will be contacted. Patient does not meet criteria for inpatient psychiatric admission. Patient acknowledges herunderstanding of the plan of care without any questions at this time. ~ [facility] discussed with Dr. Lange and a Consult [...] year): Patient's most recent admission was to [place] in 2007. Patient has a past psychiatric history of anxiety and bipolar. Patient does not have any outpatient providers for psychiatric treatment. Patient is not currently receiving any outpatient group treatment. Next appointment with psychiatrist: jeffy Next appointment with therapist/counselor: jeffy Ux Researcher Name, Agency and Phone number: na Current suicidal ideation: Patient denies suicidal thoughts/plan/intent. Previous suicide attempt(s): Patient has 2 previous suicide attempt(s). Most recent was 2007 with method of overdose. Suicidal Ideation in the past month? Yes SAFE-T Protocol with C-SSRS (Stevens Risk and Protective Factors) - Recent Step 1: Identify Risk Factors: Stevens Suicide Severity Rating Scale (Recent Screener) Initial [...] things - anyone or anything (e.g., family, sikh, pain of ) - that stopped you [...] [] Lived in war affected area [] [place] responsible for the serious injury or of [...] Date Noted Fentanyl use disorder, moderate, dependence ([facility]) ([facility]) 03/04/2020 Palpitations 09/03/2023 Cellulitis of left upper extremity 09/03/2023 Anxiety 08/19/2022 Essential hypertension 08/19/2022 Lipid screening 08/19/2022 Electrolyte imbalance 08/19/2022 Polymorphic ventricular tachycardia ([facility]) 08/19/2022 T wave inversion in EKG 08/04/2022 Opioid abuse ([facility]) HFrEF (heart failure with reduced ejection fraction) ([facility]) ([facility]) Ventricular tachycardia ([facility]) 07/01/2022 Assistive Medical Devices: none Performs ADL's: [...] 0.1 mg oral BID PRN Vira Warren SLAGGER docusate sodium (COLACE) capsule 100 mg 100 [...] PRN Vira Warren NP 4 mg at 884213 ondansetron ODT (ZOFRAN-ODT) disintegrating tablet 4 mg [...] is interested in starting medications again Pharmacy: [facility] [place] - [address] [address] [address] [address] [facility] [phone] [id number] [place] [address] [facility] [address] [facility] [facility] [id number] Social/Family History Gely Allen is a 42 y.o. White female who was born and raised in [place]. Patient's gender assigned at was female and currently identifies as a female. Patient prefers she/her/hers pronouns. Patient currently resides with son, daughter, and mother. Patient has 2 siblings. Patient has 3 children. Patient is able to read and write. Patient denies any nondenominational affiliation. 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 Patient denies any financial issues. Patient has never served in the [employer]. Patient states she has warrants. There is no [facility]. Patient reports family history of mental [...] fentanyl Additional Assessments: Behavioral Health Integration Services [facility] Intake Assessment Addendum Substance Use Alcohol Alcohol [...] in this patient's care. Gayathri Campos M.A. [facility] This was a telepsych/telemedicine visit with Gely Allen which took place via real-time video connection with [employer]. During the visit, I was located at my residence, and the patient was located at [facility] in the [facility]. My visit with the patient started at [...] Patient and/or guardian is aware that the [facility] and Hospital Staff will have access to [...] to use ultrasound for IV insertion. Informed Fish Smoker for assistance. Plan of care ongoing. documented [...] 3:14 PM CDT CARLY received forms from [employer] and provided to patient at bedside. Patient shared that she was unable to complete prescreening as chapel came in. CARLY emailed completed form to [email or web address] per patient request. When CARLY returned completed forms to patient she was on the phone with [facility] completing prescreening. Next set is for patient to call to make same day appointment. CARLY will continue to follow. Millie Rutherford LMSW Conveyor Technician Case Management * Plan of Care - Georgiana Huff RN - 09/07/2023 2:12 PM CDT 09/07/23 1411 Discharge Summary Discharge Disposition Private residence Actual Discharge Level of Care Private residence As [facility] does not accept pt's insurance, called [facility] and confirmed they accept pt's insurance. CM secure messaged Dr. Moss to have referral submitted to them. Referral submitted. called [facility] at [phone] to arrange first appointment; however, they stated they will call the patient to make the arrangements. The first available appointment is 09/19/2023. Information added to AVS. Discharge disposition: Home (). XU Mcclure-RN, Nurse Range Master [phone] * Plan of Care - Dianne Smalls RN - 09/07/2023 1:55 PM CDT Clinical Goals for the Shift: Monitor labs and VS, antibiotics, discharge planning Mcfp Patient Centered Goal for Treatment: to be [...] PCP established. A referral was submitted to [facility]. ARLINE attempted to arrange an appointment; however, was informed that [facility] and [facility] does not accept her insurance: Fun[employer] Plan which is an [place] medicaid. CM will look into accepting wound facilities. CARLY is working on getting the patient established witha PCP. XU Mcclure-RN, CM Nurse Range Master [phone] * Plan of Care - Millie Rutherford MSW - 09/07/2023 11:42 AM CDT CARLY called [facility], and spoke to Lea to establish care [...] out and return. Patient would have to [phone] SW provided information to patient and encouraged patient to complete phone screening today. CARLY provided information of [facility] and inform patient that SW will return once forms are received. will meet with patient again once forms are received. Millie Rutherford LMSW Conveyor Technician Case Management * Plan of Care - [...] for the Shift: Stable vitals, Comfort, Safety Mcfp Patient Centered Goal for Treatment: to be stable for discharge Summary: AO x4. Loss of IV access, got infiltrated. Informed SLAGGER Gregory, charge nurse and house supp. Tried to put another IV line - was able around 1am. Monitored vitals and labs. Needs attended.On Opioid withdrawal scale - no acute events noted. Patient kept monitored. * Plan of Care - Chetna Saenz RN - 09/06/2023 5:58 PM CDT Goals: Clinical Goals for the Shift: monitor labs and vitals, maintain safe environment, monitor for withdrawals Geographic Information Systems Analyst Patient Centered Goal for Treatment: to be [...] and fentanyl. She was started on suboxone. CRIPPLE CHASER/ID/psychiatry/QMHP/wound care are following. XU Mcclure-RN, Nurse Range Master [phone] * Consults, Subsequent - Tyesha Colunga LCSW - 09/06/2023 11:08 AM CDT Behavioral Health Integration Services ([facility]) [facility] Inpatient Follow-Up Note Date: 09/06/23 Patient Name: Gely Allen Medical Record: [id number] Date of : 1980 Assessment start time: 1120 Assessment end time: 1128 Assessment Briefly, Gely Allen is a 42 y.o. White female who presented initially to this hospital from [facility] 09/03/2023 with complaints of palpitations, dyspnea and fever. Patient reported palpitations mainly on the right side. On admission patient was noted to have bilateral upper arm wounds and cellulitis secondary to IV drug use. [facility] reviewed chart. Patient has a past psychiatric history of depression, anxiety, bipolar, and substance abuse. [facility] spoke to patient's nurse, Chetna Saenz, to [...] PRN Patient is sleeping. Requested RN notify [facility] when patient is awake. [address] [place] [address] has not rec'd chat. Recommendations and Plan of Care Recommendations: Based on the clinical presentation of no violent or self harm behaviors, no psychosis noted by RN, patient does not meet criteria for inpatient psychiatric admission. There are no affidavits related to this encounter to review for patient at [facility]. Plan of Care: ~ [facility] will continue to follow to meet with [...] for the Shift: Stable vitals, Comfort, Safety Geographic Information Systems Analyst Patient Centered Goal for Treatment: to be [...] Parent, Children Parent Name/Contact Information: maria l cuveas (Mother) [phone] Participation from Patient's Support System: Patient names [...] Friends and Family: Once a week Attends [employer] Services: Never Active Member of Clubs or [...] disparity and social determinants of health (has [facility] consult for substance abuse). Patient was admitted [...] provided at next encounter. Millie Rutherford LMSW Conveyor Technician Case Management * Initial Assessments - Millie [...] transport arranged?: No (09/05/231243) Health Insurance Coverage: Funplus Plan Prescription Coverage: Yes Pharmacy: [facility] [place] - [address] [facility] [address] [facility] [phone] [id number] [place] [facility] [address] [facility] [address] [facility] [phone] Primary Care Provider: No, Physician-CM/CARLY will assist [...] homeless or living in a fdc (including now)?: No (09/05/231240) Utilities: No, (09/05/231240) Social Connections: In a typical week, how many times do you talk on the phone with family, friends, or neighbors?: Once a week How often do you get together with friends or relatives?: Once a week How often do you attend judaism or nondenominational services?: Never Do you belong to any clubs or organizations such as judaism groups, unions, fraternal or athletic groups, or [...] directives information. Patient will like to use [employer] on [facility] at discharge. At [...] Collaboration with Patient, Provider, Direct Care Nurse, Conveyor Technician, and other members of theHealth Care Team to assure needed interventions completed. 2. Return patient to optimal level of self-care post discharge. 3. Range Master will follow for Discharge Planning - interventions as needed 4. Anticipated level of care at discharge 5. Planned Discharge Disposition Millie Rutherford LMSW Conveyor Technician Case Management * Plan of Care - [...] for the Shift: Stable vitals, Comfort, Safety Geographic Information Systems Analyst Patient Centered Goal for Treatment: to be [...] LAB BLOOD ORDERABLES Final Resu lt LAURA [address] Department [place] [address] * CT Humerus Left WO Contrast (09/06/2023 [...] by: Ravi Palacios M.D. Alejandro Carrillo MD [facility] CT PROCEDURES Final Result * CT Humerus [...] Carrillo MD LAB MICROBIOLOGY - GENERAL YOLANDA [facility] Final Result [facility]A [facility] [address] [place] [address] * Hepatitis panel, acute Blood [...] last revised on 2019. HepBsAg Nonreactive Nonreactive [facility] Blood 09/05/2023 12:5 4 PM CDT 09/05/2023 1:19 PM CDT Janet Borges MD LAB M uberlife - Network ORDERABLES Final Result Performing Organization Address City/[facility] Co de Phone Number [facility] [address] [place] [address] * HIV 1/2 Antibody plus p24 Antigen [...] PM CDT Janet Borges MD LAB M [employer]erlife - GENERAL ORDERABLES Final Result [facility] [address] [address] Department [place] [address] * Blood culture Blood Forearm, left (09/05/2023 12:54 PM CDT) Report Final Report: No growth Comment:Testing performed by : [facility], [address] [facility], [place]., [address] Blood (Forearm, left) 09/05/2023 12:54 PM CDT [...] organism identification may be performed using the GiftR[employer]ene Gram-Positive Blood Culture Assay. This assay detects microbial DNA in positive blood culture broth via hybridization of target DNA to capture oligonucleotides on a microarray. This assay has been cleared by the [place] Food and Drug Administration and its performance characteristics have been verified by the [facility]. 5. ?For questions about this culture, contact the Microbiology Laboratory at [phone]. Interpretive data was last revised on 2019. Flavia Lange MD LAB MICROBIOLOGY - GENERAL OR DERABLES Final Result LAURA [facility]O [address] [address] [place] [address] * ECG 12 lead (09/05/2023 7:04 AM CDT) 09/05/2023 7:04 AM CDT Narrative [facility] - 09/05/2023 8:35 AM CDT Vent Rate: 78 bpm RR Interval: [address] Interval: 170 msec QRS Duration: 101 msec QT Interval: 382 msec QTC Interval: 416 msec P-R-T [place]: -6 - 6 - 5 degrees IMPRESSION: SINUS RHYTHM NORMAL ECG Compared to previous ECG the sinus bradycardia is no longer present. ??The T- wave abnormality has resolved. Electronically Signed By: Ruben Piedra MD, [facility] us Rosemarie Vergara MD ECG ORDERABLES Final Result [facility] * Opiates Confirmation, Urine (09/05/2023 6:33 AM CDT) Codeine Conf, Ur Does Not Confirm CutOff 50 ng/mL Comment:Testing performed by : [facility], [address] [place]., [address] 6- Acetylmorphine Conf, Ur Does Not Confirm CutOff 10 ng/mL CERNER Comment:Testing performed by : [facility], [address] [place]., [address] Hydrocodone Conf, Ur Does Not Confirm CutOff 50 ng/mL CERNER Comment:Testing performed by : [facility], [address] [facility] [place]., [address] Morphine Conf, Ur Does Not Confirm CutOff 50 ng/mL CERNER Comment:Testing performed by : [facility], [address] [place]., [address] Hydromorphone Conf, Ur Does Not Confirm CutOff [...] needed. Performance characteristics were determined by the [facility] in a manner consistent with CLIA requirement and has not been cleared or approved by the U.S. Food and Drug Administration. Current interpretive data was last revised 2020. Testing performed by: [facility], [address] [place]., [address] Urine 09/05/2023 6:33 AM CDT 09/05/2023 8:49 AM CDT Vira Warrne NP LAB URINE ORDERABLES Final R esult [facility]URA [address] [place] [address] * (ABNORMAL) Fentanyl Confirmation, Urine (09/05/2023 6:33 AM CDT) Fentanyl Conf, Ur Confirmed Positive(A) Cutoff 0.3ng/mL Comment:Testing performed by : [facility], [address] [place] [address]., [address] Acetylfentanyl Conf, Ur Does Not Confirm Cutoff 1 ng/mL [facility] Comment:Testing performed by : [facility], [address] [place] [address]., [address] Acrylfentanyl Conf, Ur Does Not Confirm Cutoff 1 ng/mL CERNER Comment:Testing performed by : [facility], [address] [place] [address]., [address] Furanylfentanyl Conf, Ur Does Not Confirm Cutoff 1 ng/mL [facility] Comment:Testing performed by : [facility], [address] [place] [address]., [address] Fentanyl Metabolite (Norfentanyl) Conf, Ur Confirmed Positive(A) CutOff 5 ng/mL CERNER Comment:Testing performed by : [facility], [address] [place] [address]., [address] Xylazine [place] Confirmed Positive(A) Cutoff 1 ng/mL [...] needed. Performance characteristics were determined by the [facility] in a manner consistent with CLIA requirement and has not been cleared or approved by the U.S. Food and Drug Administration. Current interpretive data was last revised 2020. Testing performed by: [facility], [address] [place]., [address] Urine 09/05/2023 6:33 AM CDT 09/05/2023 8:49 AM CDT Vira Warren LAB URINE ORDERABLES Final R esult Performing Organization Address [facility] Co de Phone Number [facility]URA [facility] [address] [place] [address] * (ABNORMAL) Urinalysis, microscopic only (09/05/2023 6:33 AM CDT) WBC, ur 0-5 0 - 5 /HPF RBC, ur 3-5(A) 0 - 2 /HPF [facility] Epithelial cells, squamous, ur 6-10(A) 0 - 5 /HPF [facility] Comment:Suggestive of contam ination. Consider recollection by clean catch. Mucous, ur Present(A) [facility] Uric acid crystals, ur Trace(A) [facility] Culture Reflex Comment Reflex conditions for urine culture (WBC >10) not met. [facility] Urine 09/05/2023 6:33 AM CDT 09/05/2023 6:38 AM CDT Vira Warren LAB URINE ORDERABLES Final R esult Performing Organization Address [facility] Co de Phone Number DONNATRAVIS CHAPARRO [address] [place] [address] * (ABNORMAL) Drugs of Abuse [...] AM CDT 09/05/2023 6:38 AM CDT Narrative [facility] - 09/05/2023 7:33 AM CDT Drug of Abuse screening is performed by immunoassay for medical purposes only. ??This is not to be used for Pain Management purposes. ??If Detected, confirmation testing will be performed for Amphetamines, Cocaine, Fentanyl, Methadone, Opiates, Oxycodone or Phencyclidine. us Vira Warren NP LAB URINE ORDERABLES Final R esult [facility] [address] [address] Department of Laboratories [place], [place] [id number] * (ABNORMAL) Urinalysis reflex to microscopic and [...] tendency for uric acid stone formation. Source: [facility] [employer] Current Interpretive Data was last revised on [...] GENERAL O RDERABLES Final Result DONNATRAVIS CHAPARRO [address] [place] [address] * eGFR (09/04/2023 12:03 PM [...] NP LAB BLOOD ORDERABLES Final R esult [facility] [address] [place] [address] * Differential, auto (09/04/2023 12:03 PM CDT) Neutrophil abs 5.5 1.5 - 6.5 K/cumm Imm gran abs 0.0 0.0 - 0.1 K/cumm CERNER Lymphocyte abs 0.9 0.8 - 3.3 K/cumm C[facility] CH Monocyte abs 0.3 0.2 - 0.8 K/cumm CERNER Eosinophil abs 0.2 0.0 - 0.5 K/cumm [facility] Basophil abs 0.0 0.0 - 0.1 K/cumm [facility] Neutrophil pct 79.5 % C[facility]ER Comment: Interpretive Data Percent cell count reference ranges are not reported, since discordance with absolute values may lead to misinterpretation of CBC data. Current Interpretive Data was last revised on 2017. Imm gran pct 0.4 % [facility] Comment: Interpretive Data Percent cell count reference ranges are not reported, since discordance with absolute values may lead to misinterpretation of CBC data. Current Interpretive Data was last revised on 2017. Lymphocyte pct 13.1 % [facility] Comment: Interpretive Data Percent cell count reference ranges are not reported, since discordance with absolute values may lead to misinterpretation of CBC data. Current Interpretive Data was last revised on 2017. Monocyte pct 4.7 % [facility] Comment: Interpretive Data Percent cell count reference ranges are not reported, since discordance with absolute values may lead to misinterpretation of CBC data. Current Interpretive Data was last revised on 2017. Eosinophil pct 2.2 % [facility] Comment: Interpretive Data Percent cell count reference ranges are not reported, since discordance with absolute values may lead to misinterpretation of CBC data. Current Interpretive Data was last revised on 2017. Basophil pct 0.1 % [facility] Comment: Interpretive Data Percent cell count reference ranges are not reported, since discordance with absolute values may lead to misinterpretation of CBC data. Current Interpretive Data was last revised on 2017. Blood 09/04/2023 12:0 3 PM CDT 09/04/2023 12:17 PM CDT Vira Warren NP LAB BLOOD ORDERABLES Final R esult LAURA [address] Department [place] [address] * Blood culture Blood (09/04/2023 12:03 PM CDT) Report Final Report: No growth Comment:Testing performed by : [facility], [address] [facility], [facility] [place]., [address] Blood 09/04/2023 12:0 3 PM CDT 09/04/2023 [...] organism identification may be performed using the GiftRocketigene Gram-Positive Blood Culture Assay. This assay detects microbial DNA in positive blood culture broth via hybridization of target DNA to capture oligonucleotides on a microarray. This assay has been cleared by the [place] Food and Drug Administration and its performance characteristics have been verified by the [facility]. 5. ?For questions about this culture, contact the Microbiology Laboratory at [phone]. Interpretive data was last revised on 2019. Flavia Lange MD LAB MICROBIOLOGY - GENERAL OR DERABLES Final Result [facility] [address] Department [place] [address] * Vancomycin level random (09/04/2023 12:03 PM CDT) [facility] Vancomycin random 9.1 mcg/mL Comment: Interpretive Data No reference ranges have been established for random drug levels. Current Interpretive Data was last revised on 2020. Blood 09/04/2023 12:0 3 PM CDT 09/04/2023 12:12 PM CDT us Vira Warren NP LAB BLOOD ORDERABLES Final R esult [facility] [address] [place] [address] * Comprehensive metabolic panel (09/04/2023 12:03 PM [...] BLOOD ORDERABLES Final R esult LAURA CHAPARRO [address] Department [place] [address] * (ABNORMAL) CBC with auto differential (09/04/2023 12:03 PM CDT) Pathologist [facility] WBC 7.0 3.8 - 9.9 K/cumm Hgb 10.6(L) 11.9 - 15.5 g/dL [facility] Hct 32.8(L) 35.6 - 45.5 % [facility] Plt 188 150 - 400 K/cumm [facility] MPV 10.8 9.1 - 12.3 fL [facility] RBC 3.94 3.90 - 5.20 M/cumm [facility] MCV 83.2 81.3 - 96.4 fL [facility] MCH 26.9(L) 27.1 - 33.3 pg [facility] MCHC 32.3 32.3 - 35.7 g/dL [facility] RDW CV 14.0 11.1 - 14.9 % [facility] RDW SD 42.7 35.7 - 48.1 fL [facility] NRBC abs 0.00 0.00 - 0.01 K/cumm [facility] Blood 09/04/2023 12:0 3 PM CDT 09/04/2023 12:17 PM CDT us Vira Warren NP LAB BLOOD ORDERABLES Final R esult Performing Organization Address [facility]/ZIP Co de Phone Number LAURA [address] Department [place] [address] * (ABNORMAL) Aerobic culture and gram stain Wound Arm, right (09/04/2023 11:42 AM CDT) Pathologist [facility] Direct Specimen Exam Stain: No polymorphonuclear leukocytes seen. Few Gram Positive Cocci Comment:Testing performed by : [facility], [address] [place] [address], [place]., [address] Report Final Report: Moderate Staphylococcus aureus Methicillin resistant (MRSA) by penicillin binding protein 2a (PBP2a) testing. (.) [facility] Comment:Testing performed by : [facility], [address] [facility] [place]., [address] Organism STAPHYLOCOCCUS AUREUS [facility]A Wound (Arm, right) 09/04/2023 11:42 AM CDT 09/04/2023 2:33 PM CDT Narrative LAURA CHAPARRO - 09/07/2023 2:21 PM CDT Specimen received on an ESwab. Testing performed by [facility] ([phone]) Specimens submitted from normally sterile body sites [...] - GENERAL OR DERABLES Final Result [facility]URA [address] Department [place] [address] * (ABNORMAL) Aerobic and anaerobic culture and gram stain Wound Arm, left (09/03/2023 11:53 PM CDT) Direct Specimen Exam Stain: Rare polymorphonuclear leukocytes seen. Abundant Gram Positive Cocci Comment:Testing performed by : [facility], [address] [place] [address], [place]., [address] Report Final Report: Abundant Staphylococcus aureus Methicillin resistant (MRSA) by penicillin binding protein 2a (PBP2a) testing. (.) LAURA CHAPARRO Comment:Testing performed by : [facility], [address] [place] [address], [place] [address] Organism STAPHYLOCOCCUS AUREUS [facility] Wound (Arm, left) 09/03/2023 11:53 PM CDT 09/04/2023 6:41 AM CDT Narrative LAURA CHAPARRO - 09/10/2023 3:18 PM CDT Specimen received on an ESwab. Testing performed by [facility] ([phone]) Specimens submitted from normally sterile body sites [...] - GENERAL O RDERABLES Final Result [facility]A [address] Department [place] [address] documented in this encounter Visit [...] documented as of this encounter Care Teams Warp Clamper Relationship Specialty Start Date End Date No, Physician PCP - General 01/31/21 Rashaun Benavidez MD [address] [facility] [address] [id number] Consulting Physician Cardiology 07/08/22 Miscellaneous, Not In File 07/08/22 documented as of this encounter
--- OUTSIDE RECORDS SUMMARY | 2024-03-13 06:45 | XMS_ITS | Encounter Summary ---
Author Organization [facility] Healthcare Address [address] [place] [address] Care Team Providers Care Corrections Caseworker Name Role Phone No, Physician Primary Care Provider [phone] Rashaun Benavidez MD Unavailable [phone] Miscellaneous, Not In File Unavailable Unava ilable [...] week 08/06/2022 How often do you attend [facility] or denominational services? Never 08/06/2022 Do you belong to [...] a group home (including now)? No 08/06/2022 Personal Safety Answer Date Recorded Have you ever been in or are you currently in a harmful physical or emotional relationship or is someone making you feel afraid or unsafe? 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
--- OUTSIDE RECORDS SUMMARY | 2024-03-13 06:45 | XMS_ITS | Encounter Summary ---
Author Organization [facility] Medical Group Address [address] [facility] [address] [place] [address] Care Team Providers Care Ticket Sales Agent Name Role Phone No, Physician Primary Care Provider [phone] Rashaun Benavidez MD Unavailable [phone] Miscellaneous, Not In File Unavailable Unava ilable Reason for Visit * Reason Comments Hospital Follow Up Encounter Details Date Type Department Care Team (Late st Contact Info) Description 08/19/2022 1:30 PM CDT Office Visit [facility] Medical [facility] Cardiology [address] [address] Ronny Barrientos MD [address] [place] [id number] Lipid screening (Primary Dx); HFrEF (heart [...] you attend chur ch or mosque services? 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 [facility] Medical Group-Cardiology DATE OF VISIT: 08/19/2022 CHIEF COMPLAINT Chief Complaint Patient presents with Hospital Follow Up CM HPI Gely Allen is a 41 y.o. female with past medical history of nonischemic cardiomyopathy EF 28%,history of polymorphic VT, hypertension, history of fentanyl abuse. We saw the patient when she washospitalized in 06/2022. She initially presented to [facility] with chest pain and palpitations after taking a fentanyl pill. She was found to be in polymorphic VT. She underwent cardiac catheterization which demonstrated normal coronary arteries, possible takotsubo cardiomyopathy. She had recurrent VT and received approximately 8 shocks on 06/30 and was transferred to [facility] on 07/01. 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 She was discharged home on 07/08/2022 with LifeVest and on metoprolol succinate 25 mg p.o. daily and losartan 12.5 mg p.o. b.i.d.. She presented to the emergency room[facility] on 08/04/2022 with complaints of dizziness and [...] goal Fentanyl use disorder, moderate, dependence (CMS/HCC) ([facility]) Ongoing Anxiety Significant Electrolyte imbalance Replaced Polymorphic ventricular tachycardia ([facility]) No recurrence PLAN/RECOMMENDATIONS Counseling performed regarding avoidance [...] tachycardia documented in this encounter Care Teams Ticket Sales Agent Relationship Specialty Start Date End Date No, Physician PCP - General 01/31/21 [facility] [address] [address] Consulting Physician Cardiology 07/08/22 Miscellaneous, Not In File 07/08/22 documented as of this encounter
--- OUTSIDE RECORDS SUMMARY | 2024-03-13 06:45 | XMS_ITS | Encounter Summary ---
Author Organization [facility] Healthcare Address [address] [place] [address] Care Team Providers Care Toe Sewer Name Role Phone No, Physician Primary Care Provider [phone] Rashaun Benavidez MD Unavailable [phone] Miscellaneous, Not In File Unavailable Unava ilable [...] often do you attend chur ch or denominational services? Never 08/06/2022 Do you belong to any clubs o r organizations such as congregational groups, unions, fraternal or athletic groups, or [...] in a custodial (including now)? No 08/06/2022 Personal Safety Answer Date Recorded Have you ever been in or are you currently in a harmful physical or emotional relationship or is someone making you feel afraid or unsafe? 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
--- OUTSIDE RECORDS SUMMARY | 2024-03-13 06:45 | XMS_ITS | Encounter Summary ---
Author Organization [facility] Medical Group Address [address] [facility] [address] [place] [address] Care Team Providers Care Grey Goods Tester Name Role Phone No, Physician Primary Care Provider [phone] Rashaun Benavidez MD Unavailable [phone] Miscellaneous, Not In File Unavailable Unava ilable Encounter Details Date Type Department Care Team (Late st Contact Info) Description 07/08/2022 Telephone [facility] Medical Group Cardiology [address] [address] Lucinda Murcia NP [address] [address] Social History Tobacco Use Types [...] often do you attend chur ch or mandaeism services? Patient declined 07/05/2022 Do you belong [...] slept in a assisted (including now)? 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 Can you please arrange for a hospital follow-up appointment with Dr. Barrientos in the [place] office in 4-6 weeks? She will also need a appointment with Dr. Benavidez in the [place] office in 2-3 months. Thank you! documented in this encounter Plan of Treatment Not on file documented as of this encounter Visit Diagnoses Not on filedocumented in this encounter Care Teams Grey Goods Tester Relationship Specialty Start Date End Date No, Physician PCP - General 01/31/21 Rashaun Benavidez MD [address] [place] [address] [place] [address] Consulting Physician Cardiology 07/08/22 Miscellaneous, Not In File 07/08/22 documented as of this encounter
--- OUTSIDE RECORDS SUMMARY | 2024-03-13 06:46 | XMS_ITS | Encounter Summary ---
Author Organization [facility] Medical Group Address [address] [facility] [address] [place] [address] Care Team Providers Care Inspector Exhaust Emissions Name Role Phone No, Physician Primary Care Provider [phone] Encounter Details Date Type Department Care Team (Late st Contact Info) Description 06/30/2022 Orders Only [facility] Medical Group Cardiology [address] [place] [address] Ronny Barrientos MD [facility] [place] [id number] Social History Tobacco Use Types Packs/Day Years [...] often do you attend chur ch or quaker services? 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
--- OUTSIDE RECORDS SUMMARY | 2024-03-13 06:46 | XMS_ITS | Encounter Summary ---
Author Organization [facility] Medical Group Address [address] [facility] [address] [place] [address] Care Team Providers Care Biology Faculty Member Name Role Phone No, Physician Primary Care Provider [phone] Encounter Details Date Type Department Care Team (Late st Contact Info) Description 02/03/2021 Orders Only [facility] Medical Group Cardiology [address] [facility] [address] [place] [address] Merline Singleton MD [address] [place] [address] Social History Tobacco Use Types Packs/Day Years Used Date Smoking Tobacco: Never Smokeless Tobacco: Never Alcohol Use Standard Drinks/Week Comments Not Currently 0 (1 standard drink = 0.6 oz pur e alcohol) Comments No Sex and Gender Information Value Date Recorded Sex Assigned at Not on file Legal Sex Female 3:16 AM OBSTETRICS GYN PHYSICIAN Gender Identity Not on file Sexual Orientation [...] on filedocumented in this encounter Care Teams Biology Faculty Member Relationship Specialty Start Date End Date No, Physician PCP - General 01/31/21 documented as of this encounter
--- OUTSIDE RECORDS SUMMARY | 2024-03-13 06:46 | XMS_ITS | Encounter Summary ---
Author Organization [facility] Healthcare Address [address] [place] [address] Care Team Providers Care Knitted Garment Finisher Name Role Phone No, Physician Primary Care Provider [phone] Reason for Visit * Reason Comments Chest Pain Encounter Details Date Type Department Care Team (Late st Contact Info) Description 01/31/2021 10:45 PM CDT - 01/31/2021 10:49 PM CDT Emergency [facility] Emergency Department [address] [place], [place] [id number] Discharge Disposition: Left Against Medical Advice Social History Tobacco Use Types Packs/Day Years Used Date Smoking Tobacco: Never Smokeless Tobacco: Never Alcohol Use Standard Drinks/Week Comments Not Currently 0 (1 standard drink = 0.6 oz pur e alcohol) Comments No Sex and Gender Information Value Date Recorded Sex Assigned at Not on file Legal Sex Female 3:16 AM 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 Romelia Kruse [facility] us Michael Adan MD ECG ORDERABLES Final Resu lt [facility] documented in this encounter Visit Diagnoses Not on filedocumented in this encounter Care Teams Knitted Garment Finisher Relationship Specialty Start Date End Date No, Physician PCP - General 01/31/21 documented as of this encounter
--- OUTSIDE RECORDS SUMMARY | 2024-03-13 06:46 | XMS_ITS | Encounter Summary ---
Author Organization [facility] Healthcare Address [address] [place] [address] Care Team Providers Care Telephone Quotation Clerk Name Role Phone Unavailable Primary Care Provider Unavailabl e Encounter Details Date Type Department Care Team (Latest Contact Info) Description 03/04/2020 12:48 PM COUNSELOR AID - 03/07/2020 9:53 AM COUNSELOR AID Hospital Encounter [address] [address] Arslan Funes MD [address] [place] [address] Discharge Disposition: Discharge to home or self care Social History Tobacco Use Types Packs/Day Years Used Date Smoking Tobacco: Never Smokeless Tobacco: Never Alcohol Use Standard Drinks/Week Comments Not Currently 0 (1 standard drink = 0.6 oz pur e alcohol) Comments No Sex and Gender Information Value Date Recorded Sex Assigned at Not on file Legal Sex Female 3:16 AM COUNSELOR AID Gender Identity Not on file Sexual Orientation Not on file documented as of this encounter Last Filed Vital Signs Vital Sign Reading Time Taken Comments Blood Pressure 126/80 03/07/2020 8:00 AM COUNSELOR AID Pulse 69 03/07/2020 8:00 AM COUNSELOR AID Temperature 36.6 ??C (97.9 ??F) 03/07/2020 8:00 AM CS T Respiratory Rate 18 03/07/2020 8:00 AM COUNSELOR AID Oxygen Saturation 100% 03/07/2020 8:00 AM COUNSELOR AID Inhaled Oxygen Concentration - - Weight 74.8 kg (165 lb) 03/04/2020 1:55 PM COUNSELOR AID Height 165.1 cm (5' 5 ) 03/04/2020 1:55 PM COUNSELOR AID Body Mass Index 27.46 03/04/2020 1:55 PM COUNSELOR AID documented in this encounter Discharge Diagnoses Diagnosis [...] Date: 03/04/2020 Discharge Date: 03/07/2020 Admission Location: [facility] Emergency Department Problems/Diagnoses: Principal Problem: Opioid dependence with withdrawal [...] as: COZAAR Outpatient Follow-Up: Per Medical Stabilization SELOR AID documented in this encounter Medications at Time [...] vehicle. Discharge instructions reviewed with patient and/or sales and marketing representative. Mobile pharmacy medications and/or prescriptionsprovided. Belongings/home medications returned. SELOR AID * Arslan Funes MD - 03/06/2020 7:35 [...] Plan: Principal Problem: Opioid dependence with withdrawal ([facility]) Opioid withdrawal - continue medical stabilization Arslan Funes MD 03/06/2020 7:35 AM SELOR AID * Lucas Muñoz RN - 03/04/2020 6:47 [...] withdrawal, VS schedule, fall precautions. Patient and/or sales and marketing representative receptive to learning but will need further reinforcement. Will continue to monitor. SELOR AID * Lucas Muñoz RN - 03/04/2020 1:13 PM CST Patient admitted to 5th floor from home via family. Covering service notified. Patient presents with opiate withdrawal. Orders reviewed & will continue to monitor. Patient and/or sales and marketing representative oriented to environment, equipment, and informed of the following as found in admission booklet: patient rights & responsibilities, visitor policy, hand and respiratory hygiene practice. Other education includes: withdrawal medications, VS, fall precautions. Patient and/or sales and marketing representative receptive to learning but will need reinforcement. SELOR AID documented in this encounter H&P Notes * [...] MD Medical Stabilization Service 03/05/2020 7:08 AM SELOR AID SELOR AID documented in this encounter Miscellaneous Notes * Plan of Care - Wagner Hawthorne RN - 03/07/2020 5:27 AM COUNSELOR AID Problem: Lack of Knowledge: Goal: Ability to [...] ofsymptoms. Will continue to monitor this shift. SELOR AID * Plan of Care - Kiki Palacios RN - 03/06/2020 6:16 PM CST Goals: Clinical Goals for the Shift: Continue medical stabalization program. Monitor for and manage symptoms of withdrawal with both PRN and scheduled medications Summary: Patient symptoms managed with PRN and scheduled meds. SELOR AID * Treatment Plan - Yohana Verdugo BSW - 03/06/2020 10:30 AM CST CSS met with Pt to talk about aftercare plan. Pt was up and states that she is feeling a lot bettertoday.As places discussed, Pt was given the number to call and schedule her aftercare. [facility] on March 11, 2020 @ 8:20 am. Pt asked that she get a Bridge script so she does not relapse until her appointment next week. SELOR AID * Plan of Care - Wagner Hawthorne RN - 03/06/2020 5:48 AM COUNSELOR AID Problem: Lack of Knowledge: Goal: Ability to [...] with both PRN and scheduled medications Summary: SELOR AID documented in this encounter Plan of Treatment Not on file documented as of this encounter Procedures Procedure Name Priority Date/Time Associated Diagnosis Comments EGFR STAT 03/06/2020 9:04 AM COUNSELOR AID LIPASE STAT 03/06/2020 9:04 AM COUNSELOR AID AMYLASE STAT 03/06/2020 9:04 AM COUNSELOR AID ETHANOL STAT 03/06/2020 9:04 AM COUNSELOR AID COMPREHENSIVE METABOLIC PANEL STAT 03/06/2020 9:04 AM COUNSELOR AID DRUGS OF ABUSE SCREEN, URINE WITHOUT CONFIRMATION STAT 03/04/2020 1:26 PM COUNSELOR AID HCG, URINE, QUALITATIVE STAT 03/04/2020 1:26 PM COUNSELOR AID documented in this encounter Results * eGFR (03/06/2020 9:04 AM COUNSELOR AID) [facility] eGFR 82 mL/min/1.7 3 m2 [facility]AP[facility]O Comment: Interpretive Data Reference Interval Normal ?>/= 90 mL/min/1.73m2 Mildly decreased* ? 60 - 89 mL/min/1.73m2 Mildly to moderately decreased ?45 - 59 mL/min/1.73m2 Moderately to severely decreased ??30 - 44 mL/min/1.73m2 Severely decreased ?15 - 29 mL/min/1.73m2 Kidney Failure ?< 15 ??mL/min/1.73m2 *Relative to young adult level If -Filipino multiply value by 1.16. Estimated glomerular filtration [...] 2015. Blood specimen (specimen) 03/06/2020 9:04 AM COUNSELOR AID 03/06/2020 9:13 AM COUNSELOR AID Arslan Funes MD LAB BLOOD ORDERABLES Final Resu lt Performing Organization Address [facility] Co de Phone Number LAURA [phone] [place] [address] * Ethanol (03/06/2020 9:04 AM COUNSELOR AID) Ethanol <10 <=10 mg/dL LAURA Comment: Interpretive Data Legal limit of intoxication > or = 80 mg/dL Levels > or = 400 mg/dL are potentially TOXIC. Current interpretive data was last revised on 2018. Blood specimen (specimen) 03/06/2020 9:04 AM COUNSELOR AID 03/06/2020 9:13 AM COUNSELOR AID Arslan Funes MD LAB BLOOD ORDERABLES Final Resu lt Performing Organization Address [facility]/ZIP Co de Phone Number LAURA [phone] [facility] [place] [address] * Lipase (03/06/2020 9:04 AM COUNSELOR AID) Lipase 18 10 - 99 Units/L [facility] Blood specimen (specimen) 03/06/2020 9:04 AM COUNSELOR AID 03/06/2020 9:13 AM COUNSELOR AID us Arslan Funes MD LAB [place]LOOD [place] [address] Department of Laboratories [place] [phone] * Comprehensive metabolic panel (03/06/2020 9:04 AM COUNSELOR AID) Sodium 137 135 - 145 mmol/L [facility]ER [...] affected. Blood specimen (specimen) 03/06/2020 9:04 AM COUNSELOR AID 03/06/2020 9:13 AM COUNSELOR AID Arslan Funes MD LAB BLOOD ORDERABLES Final Resu lt Performing Organization Address [facility] de Phone Number [facility] [phone] [place] [address] * (ABNORMAL) Amylase (03/06/2020 9:04 AM COUNSELOR AID) Amylase 27(L) 30 - 99 Units/L [facility] Blood specimen (specimen) 03/06/2020 9:04 AM COUNSELOR AID 03/06/2020 9:13 AM COUNSELOR AID Arslan Funes MD LAB BLOOD ORDERABLES Final Resu lt Performing Organization Address [facility] de Phone Number [facility] [phone] [place] [address] * hCG, urine, qualitative (03/04/2020 1:26 PM COUNSELOR AID) HCG, ur Negative Negative [facility] Urine 03/04/2020 1:26 PM COUNSELOR AID 03/04/2020 1:29 PM COUNSELOR AID Arslan Funes MD LAB URINE ORDERABLES Final Resu lt Performing Organization Address [facility] de Phone Number [facility] [phone] [place] [address] * (ABNORMAL) Drugs of Abuse Screen, Urine without Confirmation (03/04/2020 1:26 PM COUNSELOR AID) Amphetamine, ur Detected(A) CutOff 500ng/mL [facility] Comment: Interpretive Data - Amphetamines: ??Samples containing greater than 500 ng/mL d-methamphetamine ??or other cross-reacting amphetamine compounds are reported as positive. ??Amphetamine immunoassays are subject to significant false positive rates due to cross-reactivity of non-amphetamine drugs. Current Interpretive Data was last reviewed 2018. Testing performed by: [facility], [address], [place] [address] Barbiturates, ur Not Detected CutOff 200ng/mL [facility] Comment: Interpretive Data - Barbiturates: ??Samples containing greater than 200 ng/mL secobarbital or other cross-reacting barbiturate compounds are reported as positive. ??False positive and false negative results are possible. Current Interpretive Data was last reviewed 2018. Testing performed by: [facility], [address] [place] [address] [place] [address] Benzodiazepines, ur Detected(A) CutOff 100ng/mL [facility] Comment: Interpretive Data - Benzodiazepines: ??Samples containing greater than 100 ng/mL nordiazepam or other cross-reacting compounds are reported as positive. ?? False positive and false negative results are possible. ?? Current Interpretive Data was last reviewed 2018. Testing performed by: [facility], [facility] [address] [place] [address] Cannabinoids, ur Not Detected CutOff 50 ng/mL [facility] Comment: Interpretive Data - Cannabinoids: ??Samples containing greater than 50 ng/mL delta-9 THC -COOH or other cross-reacting compounds are reported as positive. ??False positive and false negative results are possible. ?? Current Interpretive Data was last reviewed 2018. Testing performed by: [facility], [facility] [place], [place] [address] Cocaine, ur Not Detected CutOff 150ng/mL [facility] Comment: Interpretive Data - Cocaine: ??Samples containing greater than 150 ng/mL benzoylecgonine or other cross-reacting compounds are reported as positive. False positive and false negative results are possible. Current Interpretive Data was last reviewed 2018. Testing performed by: [facility], [address] [place], [place] [address] Laura[place], [facility] Fentanyl, Ur Detected(A) Cutoff 1 ng/mL [facility] Comment: Interpretive Data - Fentanyls: ??Samples containing greater than 1 ng/mL fentanyl or other cross-reacting fentanyl compounds are reported as detected. ??False positive and false negative results are possible. Current Interpretive Data was last reviewed 2018. Testing performed by: [facility], [facility] [place] [address] Methadone, ur Not Detected CutOff 300ng/mL [facility] Comment: Interpretive Data - Methadone: ??Samples containing greater than 300 ng/mL d,l-methadone or other cross-reacting compounds are reported as positive. ??False positive and false negative results are possible. Current Interpretive Data was last reviewed 2018. [facility] [address], [place] [address] Opiates, ur Detected(A) CutOff 300ng/mL [facility] Comment: Interpretive Data - Opiates: ??Samples containing greater than 300 ng/mL morphine or other cross-reacting compounds are reported as positive. ??False positive and false negative results are possible. Current Interpretive Data was last reviewed 2018. Testing [facility] [address], [place] [address] Oxycodone, ur Not Detected CutOff 100ng/mL [facility] Comment: Interpretive Data - Oxycodone: ??Samples containing greater than 100 ng/mL oxycodone or other cross-reacting compounds are reported as positive. ??False positive and false negative results are possible. ?? Current Interpretive Data was last reviewed 2018. Testing performed [facility] [address], [place] [address] Phencyclidine, ur Not Detected CutOff 25 ng/mL [facility] Comment: Interpretive Data - Phencyclidine: ??Samples containing greater than 25 ng/mL phencyclidine or other cross-reacting compounds are reported as positive. ??False positive and false negative results are possible. ?? Current Interpretive Data was last reviewed 2018. Testing [facility] [address], [place] [address] Urine Creatinine 190 mg/dL [facility] Comment: Interpretive Data Urine Creatinine: < 10 mg/dL is extremely dilute = or > 10 but < 20 mg/dL is dilute = or > 20 mg/dL is normal Current Interpretive Data was last revised on 2017. [facility] [address], [place] [address] Urine 03/04/2020 1:26 PM COUNSELOR AID 03/04/2020 3:13 PM COUNSELOR AID Narrative [facility] - 03/04/2020 3:41 PM COUNSELOR AID Drug of Abuse screening is performed by immunoassay for medical purposes only. ??This is not to be used for Pain Management purposes. us Arslan Funes MD LAB URINE ORDERABLES Final Resu lt [facility]URA CHAPARRO [address] [facility] Department [place] [address] documented in this encounter Visit Diagnoses Diagnosis [...] Opioid WithdrawalIndications:Opioid Withdrawal Given 03/06/2020 12:53 AM COUNSELOR AID 2 mg Given 03/05/2020 3:50 PM COUNSELOR AID 2 mg buprenorphine (SUBUTEX) sublingual tablet 2 mg 2 mg, sublingual, Every 12 hours, First dose on Tue03/06/20 at 0800, For 3 doses, Indications: Opioid WithdrawalIndications:Opioid Withdrawal Given 03/07/2020 8: 45 AM COUNSELOR AID 2 mg Given 03/06/2020 7:00 PM COUNSELOR AID 2 mg Given 03/06/2020 8:48 AM COUNSELOR AID 2 mg buprenorphine (SUBUTEX) sublingual tablet 4 mg 4 mg, sublingual, Every 8 hours, First dose on Tue03/04/20 at 1600, For 3 doses, Date/Time of Last Opioid Use: 03/03/2020 3pm RESCHEDULE administration time if needed., Indications: Opioid WithdrawalIndications:Opioid Withdrawal Given 03/05/2020 9: 22 AM COUNSELOR AID 4 mg Given 03/04/2020 11:50 PM COUNSELOR AID 4 mg Given 03/04/2020 4:22 PM COUNSELOR AID 4 mg chlordiazePOXIDE (LIBRIUM) capsule 25 mg 25 mg, oral, Every 4 hours, First dose on Tue03/04/20 at 1430, For 6 doses, Indications: anxietyIndications:anxiety Given 03/05/2020 10:54 AM COUNSELOR AID 25 mg Given 03/05/2020 6:09 AM COUNSELOR AID 25 mg Given 03/05/2020 2:52 AM COUNSELOR AID 25 mg chlordiazePOXIDE (LIBRIUM) capsule 25 mg 25 mg, oral, Every 6 hours PRN, other, mild anxiety - patient reported scale of 1-4, Starting on Tue03/05/20 at 1430, Indications: anxietyIndications:anxiety Given 03/06/2020 5:40 PM COUNSELOR AID 25 mg cloNIDine (CATAPRES) tablet 0.1 mg 0.1 mg, oral, Every 2 hours PRN, high blood pressure, hot/cold sweats or anxiety, Starting on Tue03/04/20 at 1302, Hold for BP less than 90/60 or heart rate less than 60. Max dose 1.2 mg per 24 hours., Indications: Opioid Withdrawal SymptomsIndications:Opioid Withdrawal Symptoms Given 03/06/2020 5:50 PM COUNSELOR AID 0.1 mg Given 03/05/2020 4:02 PM COUNSELOR AID 0.1 mg Given 03/05/2020 10:54 AM COUNSELOR AID 0.1 mg dicyclomine (BENTYL) tablet 20 mg 20 mg, oral, Every 6 hours PRN, abdominal discomfort, Starting on Tue03/04/20 at 1302, Indications: Abdominal Pain with CrampsIndications:Abdominal Pain with Cramps Given 03/06/2020 5:40 PM COUNSELOR AID 20 mg Given 03/05/2020 4:03 PM COUNSELOR AID 20 mg Given 03/05/2020 12:47 AM COUNSELOR AID 20 mg folic acid (FOLVITE) tablet 1 mg 1 mg, oral, Daily, First dose on Tue03/04/20 at 1345, Indications: Folate DeficiencyIndications:Folate Deficiency Given 03/07/2020 8:44 AM COUNSELOR AID 1 mg Given 03/06/2020 8:48 AM COUNSELOR AID 1 mg Given 03/05/2020 9:21 AM COUNSELOR AID 1 mg hydrOXYzine (ATARAX) tablet 50 mg 50 mg, oral, Every 6 hours PRN, other, mild anxiety - patient reported scale of 1-4, Starting on Tue03/04/20 at 1302, May administer together with PRN chlordiazePOXIDE (LIBRIUM)., Indications: anxietyIndications:anxiety Given 03/07/2020 3:18 AM COUNSELOR AID 50 mg Given 03/06/2020 6:23 AM COUNSELOR AID 50 mg Given 03/05/2020 9:33 PM COUNSELOR AID 50 mg hydrOXYzine (VISTARIL) injection 50 mg [...] Tue03/04/20 at 1300 Given 03/07/2020 3:18 AM COUNSELOR AID 600 mg Given 03/06/2020 6:23 AM COUNSELOR AID 600 mg Given 03/05/2020 4:01 PM COUNSELOR AID 600 mg loperamide (IMODIUM) capsule 2 mg [...] Tue03/04/20 at 1302 Given 03/07/2020 3:18 AM COUNSELOR AID 750 mg Given 03/06/2020 5:40 PM COUNSELOR AID 750 mg Given 03/06/2020 6:23 AM COUNSELOR AID 750 mg multivit ccpoahup-yftg-TC-calcium (THERA-M) tablet 1 tablet 1 tablet, oral, Daily, First dose on Tue03/04/20 at 1345, Indications: Vitamin Deficiency PreventionIndications:Vitamin Deficiency Prevention Given 03/07/2020 8:44 AM COUNSELOR AID 1 tablet Given 03/06/2020 8:48 AM COUNSELOR AID 1 tablet Given 03/05/2020 9:21 AM COUNSELOR AID 1 tablet nicotine (NICODERM CQ) 21 mg [...] VomitingIndications:Nausea and Vomiting Given 03/05/2020 12:48 AM COUNSELOR AID 4 m g Given 03/04/2020 4:57 PM COUNSELOR AID 4 mg rOPINIRole (REQUIP) tablet 0.5 mg 0.5 mg, oral, Every 12 hours PRN, restless legs, Starting on Tue03/04/20 at 1302 Given 03/06/2020 6:23 AM COUNSELOR AID 0.5 mg Given 03/05/2020 4:02 PM COUNSELOR AID 0.5 mg Given 03/04/2020 4:54 PM COUNSELOR AID 0.5 mg senna (SENOKOT) tablet 2 tablet 2 tablet (17.2 mg), oral, Nightly PRN, constipation, Starting on Tue03/04/20 at 2100 thiamine (VITAMIN B-1) tablet 100 mg 100 mg, oral, Daily, First dose on Tue03/04/20 at 1345, Indications: Thiamine DeficiencyIndications:Thiamine Deficiency Given 03/07/2020 8:44 AM COUNSELOR AID 10 0 mg Given 03/06/2020 8:48 AM COUNSELOR AID 100 mg Given 03/05/2020 9:21 AM COUNSELOR AID 100 mg traZODone (DESYREL) tablet 50 mg 50 mg, oral, Nightly PRN, sleep, insomnia, Starting on Tue03/04/20 at 2100, Repeat dose if insomnia persists greater than 30 minutes. Given 03/05/2020 9:3 3 PM COUNSELOR AID 50 mg documented in this encounter Active and Recently Administered Medications Times are shown in COUNSELOR AID. Scheduled Medication Order 03/05/2020 03/06/2020 03/07/2020 buprenorphine [...] (Given - Provider: Lucas Muñoz, ZANE) multivit ikpgtqyu-mqnr-WM-calcium (THERA-M) tablet 1 tablet 1 tablet, oral, Daily, First dose on Tue03/04/20 at 1345, Indications: Vitamin Deficiency Prevention 0921 (Given - Provider: Alyssa Fitzgerald, RN) 0848 (Given - Provider: Kkii Palacios RN) 0844 (Given - Provider: Lucas [...] 16 mg/day 0606 (Return to [facility] - Provider: Ernestina Rodriguez, RN) [...]
--- OUTSIDE RECORDS SUMMARY | 2024-03-13 06:46 | XMS_ITS | Encounter Summary ---
Author Organization [facility] Healthcare Address [address] [place] [address] Care Team Providers Care Edge Grinder Machine Name Role Phone No, Physician Primary Care Provider [phone] Encounter Details Date Type Department Care Team (Latest Contact Info) Description 01/31/2021 7:25 PM CDT - 01/31/2021 10:44 PM CDT Hospital Encounter [facility] [address] [place] [address] Discharge Disposition: Discharge to home or self care Social History Tobacco Use Types Packs/Day Years Used Date Smoking Tobacco: Never Smokeless Tobacco: Never Alcohol Use Standard Drinks/Week Comments Not Currently 0 (1 standard drink = 0.6 oz pur e alcohol) Comments No Sex and Gender Information Value Date Recorded Sex Assigned at Not on file Legal Sex Female 3:16 AM [employer] [employer] [facility] Gender Identity Not on file Sexual Orientation [...] on filedocumented in this encounter Care Teams Edge Grinder Machine Relationship Specialty Start Date End Date No, Physician PCP - General 01/31/21 documented as of this encounter
--- OUTSIDE RECORDS SUMMARY | 2024-03-13 06:46 | XMS_ITS | Encounter Summary ---
Author Organization [facility] Healthcare Address [address] [place] [address] Care Team Providers Care Loan Assistant Name Role Phone No, Physician Primary Care Provider [phone] Rashaun Benavidez MD Unavailable [phone] Miscellaneous, Not In File Unavailable Unava ilable Reason for Visit * Auth/Cert (Routine) Specialty Diagnoses / Procedures Referred By Contac t Referred To Contact Diagnoses Ventricular tachycardia (HCC) ventricular tachycardia Procedures NA Referral ID Status Reason Start Date Expiration Date Visits Re quested Visits Authorized [id number] 1 1 Encounter Details Date Type Department Care Team (Latest Contact Info) Description 07/01/2022 8:19 PM CDT - 07/08/2022 7:03 PM CDT Hospital Encounter [address] [address] Bridgett Fry MD [address] [id number] [place] [address] Srinivasan Lizama MD [id number] [place] [address] Alvin Hilario MD [id number] [place] [address] [place] [phone] [address] Ventricular tachycardia (HCC) (Primary Dx) Discharge Disposition: [...] you attend chur ch or christian services? Patient declined 07/05/2022 Do you belong to any clubs o r organizations such as pentecostalism groups, unions, fraternal or athletic groups, or [...] slept in a retirement (including now)? 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 She was initially taken to [facility] where initial treatment consisted of amio, lidocaine and magnesium. She was then taken to the [facility] which demonstrated clean coronary arteries but c/f takotsubo cardiomyopathy. She now arrives to [facility] ICU for ongoing cardiology workup and [...] Your Medications These medications were sent to [facility] [place] - [address] [facility] [address] [facility] [address] losartan 25 mg tablet metoprolol XL 25 [...] Center 08/19/2022 1:30 PM Ronny Barrientos MD [facility] Specialty 10/19/2022 9:00 AM Rashaun Benavidez MD [facility] Specialty Contact Information for Follow-ups [facility] Next Steps: Follow up Instructions: Please call [facility] Primary Care Provider referral line at [phone] option 1 or to schedule a new PCP appointment as they have been trying to contact you! You may also call [phone]) or [phone]. Comments: I attest that the patient has agreed to be contacted by a airline security representative of [facility] to schedule the patient with a new primary care provider: yes What is the goal time frame for this appointment? Low 14 days Should the post-discharge visit be performed virtually? no Who should be contacted to schedule the appointment Patient [phone] Phone number for scheduling contact: [phone] Please list the patient's Sterilizer Operator and phone number: Angelita DEGROOT [phone] Questions: Please select the performing region: [facility] # of visits: 1 Referral Status: Do Not Schedule [facility] Behavioral Health [address] [facility] [address] [facility] [address] Next Steps: Follow up Behavioral Health Response [id number] [facility] [address] [facility] [address] Next Steps: Follow up [facility] [address] [facility] [address] Next Steps: Call Instructions: Addiction Recovery, Counseling, Crisis & Urgent Care, Housing, , Pharmacy, Psychiatric Care and more. [facility] [address] [address] Next Steps: Follow up Instructions: [email or web address] provides primary care, substance use, mental health treatment, dentistry, housing, and credit counseling. Rashaun Benavidez MD Specialty: Cardiology, Load Dispatcher, Cardiovascular Disease, Internal Medicine, Clinical Cardiac Electrophysiology Relationship: Consulting Physician [address] [facility] [address] [address] Next Steps: Follow up Instructions: call office for follow up with tractor mechanic outpatient. Questions: Instructions for follow-up (appointment date and time): call office for follow up with tractor mechanic outpatient. To provider: RASHAUN BENAVIDEZ Miscellaneous, Not In File Next Steps: Follow up Instructions: Follow-up with PCP in 5-7 days; bring all home medications to appointment Questions: To provider: SVENCELLANEOUS, NOT IN FILE Instructions for follow-up (appointment date and time): Follow-up with PCP in 5- 7 days; bring all home medications to appointment Please schedule an appointment with the following provider(s): [facility] Medical Group Please call [facility] Medical Group Primary Care Provider referral line at [phone] option 1 or to schedule a new PCP appointment as they have been trying to contact you! You may also call [phone] ([phone]) or [phone]. [facility] Behavioral Health [address] [facility] [address] [facility] [address] Follow up Behavioral Health Response [address] [facility] [address] [facility] [address] Follow up [address] [address] Call Addiction Recovery, Counseling, Crisis & Urgent Care, Housing, , Pharmacy, Psychiatric Care and more. [address] [address] Follow up [facility] provides primary care, substance use, mental health treatment, dentistry, housing, and credit counseling. Rashaun Benavidez MD [address] [facility] [address] [address] call office for follow up with tractor mechanic outpatient. Miscellaneous, Not In File Follow-up with PCP in 5-7 days; bring all home medications to appointment ANCILLARY INFORMATION Other Procedures & Diagnostic Tests: ECG 12 lead Result Date: 07/03/2022 Vent Rate: 90 bpm RR Interval: 664 msec [place] Interval: 167 msec QRS Duration: 90 msec QT Interval: 416 msec QTC Interval: 464 msec P-R-T [place]: 29 - -4 - 79 degrees SINUS [...] Rate: 125 bpm RR Interval: 480 msec [place] Interval: 168 msec QRS Duration: 88 msec QT Interval: 316 msec QTC Interval: 390 msec P-R-T [place]: 27 - -16 - 48 degrees SINUS [...] Rate: 121 bpm RR Interval: 495 msec [place] Interval: 168 msec QRS Duration: 130 msec QT Interval: 284 msec QTC Interval: 356 msec P-R-T [place]: 16 - -34 - 85 degrees SINUS TACHYCARDIA LEFTWARD AXIS VOLTAGE CRITERIA FOR LVH ANTERIOR MYOCARDIAL INFARCTION , OF INDETERMINATE AGE T-WAVE ABNORMALITY, CONSIDER ISCHEMIA Electronically Signed By: Chas Hirsch MD, [facility] XR Chest 1 View Result Date: [...] (TTE) Complete W Doppler/CF Result Date: 07/02/2022 [place] [address] Echocardiogram Report Patient Name: MARGY SALDANA : 1980 Study Date: 39:40:23 AM Gender: F Tech: Location: [id number] Ref.Provider: NIK LOGAN Height(Cm): 165 BSA: 1.87 [...] -- 0.90 -- 0.90 < > 0.83 [id number]-[id number] mL/min/1.73 m2 -- -- 80 -- -- [...] questions, please call the dietitian's office at [phone]. Additional resources are available online from the [employer] [place] [employer] at www.heart.org/en/healthy-living/healthy-eating documented in this [...] questions, please call the dietitian's office at [phone]. Additional resources are available online from the [employer] [place] [employer] at www.heart.org/en/healthy-living/healthy-eating Nutrition Follow-Up : [...] polymorphic ventricular tachycardia. She was brought to [facility] and underwent cardiac catheterization which demonstrated normal coronaries, possible takotsubo cardiomyopathy. Patient had recurrent ventricular tachycardia in the laboratory specialist and was shocked 4 times. She received magnesium and was started on a lidocaine drip. She was transferred to [facility] on the evening of07/01/2022 for electrophysiology [...] Received approximately 8 shocks on 06/30 at [place] for VT. EP consulted andPMVT/TdP likely due [...] inferior segment. Cardiac catheterization done 06/30 at [facility] showed no significant coronary artery disease. Continue [...] was used to complete this document, therefore, facility maintenance supervisor variances may occur. Renaldo Hernandez NP 07/08/22 [...] for follow-up in the cardiology clinic at [facility]. Patient is also to follow-up with EP [...] ventricular tachycardia. She was initially taken to [facility] where initial treatment consisted of amio, lidocaine and magnesium. She was then taken to the [facility] which demonstrated clean coronary arteries but c/f takotsubo cardiomyopathy. She was then Txed to [facility] ICU for ongoing cardiology workup and a consult to EP (Dr. Benavidez).She arrived on a lidocaine gtt. Patient also utilizes skin popping as an administration vector for fentanyl and has c/f cellulitis to bilateral upper arms. 06/30/2022 cardiac catheterization [facility] clear coronaries Takostubo 07/01/2022 arrives to [...] ventricular tachycardia. She was initially taken to [facility] where initial treatment consisted of amio, lidocaine and magnesium. She was then taken to the [facility] which demonstrated clean coronary arteries but c/f takotsubo cardiomyopathy. She was then Txed to [facility] ICU for ongoing cardiology workup and a consult to EP (Dr. Benavidez).She arrived on a lidocaine gtt. Patient also utilizes skin popping as an administration vector for fentanyl and has c/f cellulitis to bilateral upper arms. 06/30/2022 cardiac catheterization [facility] clear coronaries Takostubo 07/01/2022 arrives to [...] polymorphic ventricular tachycardia. She was brought to [facility] and underwent cardiac catheterization which demonstrated normal coronaries, possible takotsubo cardiomyopathy. Patient had recurrent ventricular tachycardia in the laboratory specialist and was shocked 4 times. She received magnesium and was started on a lidocaine drip. She was transferred to [facility] on the evening of07/01/2022 for electrophysiology [...] Received approximately 8 shocks on 06/30 at [place] for VT. EP has been consulted. PMVT/TdP [...] coronaryartery disease. Echocardiogram done on 06/30 at [place] showed normal LVEF (this echo was done priorto her getting shocked 8 times). Will eventually need GDMT as tolerated, however, will plan to start GDMT once she has recovered more. EP recommended no beta lane at this time, therefore, discontinued her Metoprolol. [...] was used to complete this document, therefore, facility maintenance supervisor variances may occur. Kylie Nova MD 07/05/22 [...] mg, 40 mg, subcutaneous, Daily-2099, Nik Logan, DITCH REPAIRER, 40 mg at 07/03/222116 lidocaine in dextrose [...] ventricular tachycardia. She was initially taken to [facility] where initial treatment consisted of amio, lidocaine and magnesium. She was then taken to the [facility] which demonstrated clean coronary arteries but c/f takotsubo cardiomyopathy. She was then Txed to [facility] ICU for ongoing cardiology workup and a consult to EP (Dr. Benavidez).She arrived on a lidocaine gtt. Patient also utilizes skin popping as an administration vector for fentanyl and has c/f cellulitis to bilateral upper arms. 06/30/2022 cardiac catheterization [facility] clear coronaries Takostubo 07/01/2022 arrives to [...] polymorphic ventricular tachycardia. She was brought to [facility] and underwent cardiac catheterization which demonstrated normal coronaries, possible takotsubo cardiomyopathy. Patient had recurrent ventricular tachycardia in the laboratory specialist and was shocked 4 times. She received magnesium and was started on a lidocaine drip. She was transferred to [facility] on the evening of07/01/2022 for electrophysiology [...] Received approximately 8 shocks on 06/30 at [place] for VT. EP has been consulted. PMVT/TdP [...] coronaryartery disease. Echocardiogram done on 06/30 at [place] showed normal LVEF (this echo was done [...] was used to complete this document, therefore, facility maintenance supervisor variances may occur. Kylie Nova MD 07/04/22 * Maritza Holguin [facility] - 07/04/2022 10:28 AM CDT Pharmacokinetic Consult [...] Rosas NP - 07/03/2022 3:13 PM CDT [facility] Hospitalist Service Progress Note Patient Name: Margy Saldana Patient : 1980 Age/Sex: 41 y.o. female Room/Bed: [facility] [address] Admission Date/Time: 07/01/2022 8:19 PM Date: 07/03/2022 [...] ventricular tachycardia. She was initially taken to [facility] where initial treatment consisted of amio, lidocaine and magnesium. She was then taken to the [facility] which demonstrated clean coronary arteries but c/f takotsubo cardiomyopathy. She now arrives to [facility] ICU for ongoing cardiology workup and a consult to EP (Dr. Benavidez). She arrives on a lidocaine gtt. Of note, the patient also utilizes skin popping as an administration vector for fentanyl and has c/f cellulitis to bilateral upper arms. 06/30/2022 cardiac catheterization [facility] clear coronaries Micheleubo 07/01/2022 arrives to [...] Ringer's, 40 mL/hr, Last Rate: 40 mL/hr (07/02/223) lidocaine cardiac, 2 mg/min, Last Rate: 2 mg/min (07/03/22 2785) PRN Meds: acetaminophen OBJECTIVE Vitals: Vitals: 07/03/22 [...] to the 9th floor Voice recognition software ([employer]) was used to complete this document. Despite proofreading, facility maintenance supervisor variances and typographical errors may occur. MELISA MELO MBA,DNP Hospitalist in the [facility] Medical Group [facility] 07/03/2022 3:18 PM * David Last PA [...] Brian Phone number to be reached at: [phone] (RAZIA 2) * David Last PA - [...] ventricular tachycardia. She was initially taken to [facility] where initial treatment consisted of amio, lidocaine and magnesium. She was then taken to the [facility] which demonstrated clean coronary arteries but c/f takotsubo cardiomyopathy. She now arrives to [facility] ICU for ongoing cardiology workup and [...] Ringer's, 40 mL/hr, Last Rate: 40 mL/hr (07/02/222) lidocaine cardiac, 2 mg/min, Last Rate: 2 [...] plan with the ICU team and other medical/application security consultant staff, making frequent assessments and decisions [...] polymorphic ventricular tachycardia. She was brought to [facility] and underwent cardiac catheterization which demonstrated normal coronaries, possible takotsubo cardiomyopathy. Patient had recurrent ventricular tachycardia in the laboratory specialist and was shocked 4 times. She received magnesium and was started on a lidocaine drip. She was transferred to [facility] on the evening of07/01/2022 for electrophysiology [...] Received approximately 8 shocks on 06/30 at [place] for VT. EP has been consulted. PMVT/TdP [...] coronaryartery disease. Echocardiogram done on 06/30 at [place] showed normal LVEF (this echo was done [...] was used to complete this document, therefore, facility maintenance supervisor variances may occur. Kylie Nova MD 07/03/22 [...] Methadone dose verified as 190 mg by [facility]. Will resume at 170 and decrease by [...] ventricular tachycardia. She was initially taken to [facility] where initial treatment consisted of amio, lidocaine and magnesium. She was then taken to the [facility] which demonstrated clean coronary arteries but c/f takotsubo cardiomyopathy. She now arrives to [facility] ICU for ongoing cardiology workup and a consult to EP (Dr. Benavidez). She arrives on a lidocaine gtt. Of note, the patient also utilizes skin popping as an administration vector for fentanyl and has c/f cellulitis to bilateral upper arms. Hospital Course: 07/01: arrive from [facility]. Sinus tach. Lidocaine gtt stopped for level [...] LVEF 28% - S/p [facility]30) [facility] w[facility] coron[facility] per report but [...] plan with the ICU team and other medical/application security consultant staff, making frequent assessments and decisions [...] ventricular tachycardia. She was initially taken to [facility] where initial treatment consisted of amio, lidocaine and magnesium. She was then taken to the [facility] which demonstrated clean coronary arteries but c/f takotsubo cardiomyopathy. She now arrives to [facility] ICU for ongoing cardiology workup and [...] LVEF 28% - S/p CCL (4/5) [facility] w/ clear coronaries per report but [...] plan with the ICU team and other medical/application security consultant staff, making frequent assessments and decisions [...] 07/12/2022 7:35 PM CDT * César Leary, [facility] - 07/02/2022 2:02 AM CDT Pharmacokinetic Consult [...] in this encounter H&P Notes * Nik Logan, DITCH REPAIRER - 07/01/2022 9:11 PM CDTAssociated Order(s): Critical Care Images from the original note were not included. Critical Care Medicine Consult Team: [facility] PM Reason for Consult: Polymorphic tachycardia Subjective [...] ventricular tachycardia. She was initially taken to [facility] where initial treatment consisted of amio, lidocaine and magnesium. She was then taken to the [facility] which demonstrated clean coronary arteries but c/f takotsubo cardiomyopathy. She now arrives to [facility] ICU for ongoing cardiology workup and [...] soft, nontender, hypoactive bowel sounds : Skin: [place], warm, dry. Bilateral upper arms w/ firmness [...] TTE ordered - S/p CCL (06/30) [facility] w/ clear coronaries per report but [...] plan with the ICU team and other medical/application security consultant staff, making frequent assessments and decisions [...] and substance abuse w/ opioids. Admitted to [facility] on 07/01/22 for ventricular tachycardia. Impression: Patient has dimpled bilateral shoulders and upper arms. Patient states she has an ongoing issue with recurrent abscess on her arms that she drains on her own. This presents like hydradenitis. There are no current open wounds that require treatment. Recommendation to patient is to request referral to a ink grinder if she would like to start thinking [...] last dose was day of presentation to [facility]. She states she suddenly started feeling periods of chest pain, palpitations and pre syncope, that were intermittent and resolve on their own. In [facility], pt was noted to have PMVT/TdP [...] shocks. She was then transferred to [facility] for further care, while on [place] gtt. [...] Rashaun Benavidez MD Clinical Cardiac Electrophysiology [facility]-Cardiology at 12:08 PM 07/02/22 * Renaldo Hernandez [...] polymorphic ventricular tachycardia. She was brought to [facility] and underwent cardiac catheterization which demonstrated normal coronaries, possible takotsubo cardiomyopathy. Patient had recurrent ventricular tachycardia in the laboratory specialist and was shocked 4 times. She received magnesium and was started on a lidocaine drip. She was transferred to [facility] on the evening of 07/01/2022 for [...] LVH, can not rule out old anterior [place], T-wave abnormality, consider ischemia, heart rate 121. [...] RN called lab at 2248 asking for oven technician to come draw blood cultures. 2 RN's [...] No further CM follow-up needed. XU Cowan-RN [facility] [phone] * Consults, Subsequent - Rashaun Benavidez MD [...] entered. Nursing staff to complete [facility] upon discharge.No new discharge needs identified. Disposition code 01. XU Cowan-RN [facility] [phone] * Plan of Care - Tete Melo [...] concerns. Rashaun Benavidez MD Clinical Cardiac [facility]rophysiology [facility] at 7:30 AM 07/07/22 * Plan of [...] Rashaun Benavidez MD Clinical Cardiac Electrophysiology [facility]-Card[facility] at 10:29 AM 07/06/22 * Plan of [...] ventricular tachycardia. She was initially taken to [facility] where initial treatment consisted of amio, lidocaine and magnesium. She was then taken to the [facility] which demonstrated clean coronary arteries but c/f takotsubo cardiomyopathy. She now arrives to [facility] ICU for ongoingcardiology workup and a consult to EP (Dr. Benavidez). She arrives on a lidocaine gtt. Of note, the patient also utilizes skin popping as an administration vector for fentanyl and has c/f cellulitis to bilateral upper arms. 06/30/2022 cardiac catheterization [facility] clear coronaries Takostubo 07/01/2022 arrives to [...] transport arranged?: No (07/05/221411) Health Insurance Coverage: [facility] Prescription Coverage: yes Pharmacy: [facility] [place] - [address] [place] [address] [address] [facility] [address] [id number] - [place], [place] - [address] [facility] [address] Primary Care Provider: No, Physician- none- referral placed to access line for assistance for MD that takes [place] Medicaid. Prior to Admission: Primary Caregiver: Self Who does the patient or legal guardian want to receive education instruction and discharge plans for after care assistance?: Decline Support System: Family members Support system contact info (name, phone, availablity): Maria L Faith (Mother) [phone] (M), patient designated manager intensive care unit Home Care Services: No Durable Medical Equipment: [...] a week How often do you attend pentecostalism or christian services?: Patient refused Do you belong to any clubs or organizations such as pentecostalism groups, unions, fraternal or athletic groups, or [...] Collaboration with patient, MD, direct care nurse, Employment Services Director, and other members of the health care team to assure needed interventions completed. 2. Return patient to optimal level of self-care post discharge. 3. Sterilizer Operator will follow for Discharge Planning - interventions as needed 4. Anticipated level of care at discharge 5. Planned Discharge Disposition Angelita George RN BSN Sterilizer Operator [phone] * Plan of Care - Tete Melo [...] Rashaun Benavidez MD Clinical Cardiac Electrophysiology [facility]-Cardiology at 7:43 AM 07/05/22 * Plan of [...] to be done to transfer patient to [facility]; Problem: Health Behavior: Goal: Understanding of discharge [...] Glucose, POC 143 70 - 199 mg/dL [facility] Blood 07/08/2022 11:1 0 AM CDT 07/08/2022 11:10 AM CDT Naomi Foote MD LAB POCT ORDERABLES - DEVICE F inal Result Performing Organization Address City/[facility]/ZIP Co de Phone Number LAURA KRYSTA [address] [address] Vasquez [employer] [place] [address] * POCT glucose (07/08/2022 7:38 AM CDT) Glucose, POC 124 70 - 199 mg/dL [facility] Blood 07/08/2022 7:38 AM CDT 07/08/2022 7:38 AM CDT Naomi Foote MD LAB POCT ORDERABLES - DEVICE F inal Result Performing Organization Address City/[facility]/ZIP Co de Phone Number LAURA [address] Department [place] [address] * ECG 12 lead (07/08/2022 7:13 AM CDT) 07/08/2022 7:1 3 AM CDT Narrative [facility] - 07/08/2022 8:32 AM CDT Vent Rate: 78 bpm RR Interval: 765 msec [place] Interval: 168 msec QRS Duration: 92 msec QT Interval: 410 msec QTC Interval: 443 msec P-R-T [place]: 28 - 10 - 29 degrees SINUS RHYTHM NONSPECIFIC T-WAVE ABNORMALITY BORDERLINE ECG INTERPRETATION BASED ON A DEFAULT AGE OF 40 YEARS Electronically Signed By: Dr. Romelia Kruse [facility] Rashaun Benavidez MD ECG ORDERABLES Final Result [facility] * eGFR (07/08/2022 7:12 AM CDT) eGFR [...] ORDERABLES Final R esult Performing Organization Address [facility] [[email or web address]] de Phone Number LAURA CHAPARRO [address] [facility] [place] [address] * (ABNORMAL) Calcium, ionized (07/08/2022 7:12 AM CDT) Ca, ionized, bld, calc 4.53(L) 4.60 - 5.20 mg/dL [facility] Ca, ionized, bld 4.70 4.60 - 5.20 mg/dL [facility] Blood 07/08/2022 7:12 AM CDT 07/08/2022 7:27 AM CDT us David Last PA LAB BLOOD ORDERABLES Final R esult Performing Organization Address [facility] de Phone Number LAURA CHAPARRO [address] [facility] [place] [address] * Phosphorus (07/08/2022 7:12 AM CDT) Phosphorus, pl 3.7 2.3 - 4.5 mg/dL [facility] Blood 07/08/2022 7:12 AM CDT 07/08/2022 7:55 AM CDT us David Robertschelo PA LAB BLOOD ORDERABLES Final R esult Performing Organization Address [facility] [[email or web address]] de Phone Number DONNATRAVIS CHAPARRO [address] [facility] [place] [address] * Magnesium (07/08/2022 7:12 AM CDT) Magnesium 2.0 1.4 - 2.5 mg/dL [facility] Blood 07/08/2022 7:12 AM CDT 07/08/2022 7:55 AM CDT us David Last PA LAB BLOOD ORDERABLES Final R esult Performing Organization Address [facility] Co de Phone Number LAURA CHAPARRO [address] Department [place] [address] * (ABNORMAL) CBC without differential (07/08/2022 7:12 AM CDT) Pathologist [facility] WBC 8.6 3.8 - 9.9 K/cumm [facility] Hgb 11.1(L) 11.9 - 15.5 g/dL [facility] Hct 34.9(L) 35.6 - 45.5 % [facility] Plt 305 150 - 400 K/cumm [facility] MPV 10.3 9.1 - 12.3 fL [facility] RBC 3.94 3.90 - 5.20 M/cumm [facility] CH MCV 88.6 81.3 - 96.4 fL [facility] CH MCH 28.2 27.1 - 33.3 pg [facility] MCHC 31.8(L) 32.3 - 35.7 g/dL [facility] CH RDW CV 13.5 11.1 - 14.9 % [facility] RDW SD 43.0 35.7 - 48.1 fL [facility] NRBC abs 0.00 0.00 - 0.01 K/cumm [facility] Blood 07/08/2022 7:12 AM CDT 07/08/2022 7:54 AM CDT David WATSON LAB BLOOD ORDERABLES Final R esult LAURA CHAPARRO [address] Department [place] [address] * Basic metabolic panel (07/08/2022 7:12 AM CDT) Pathologist [facility] Sodium 140 135 - 145 mmol/L [facility] Potassium, pl 4.0 3.3 - 4.9 mmol/L [facility] Chloride 103 97 - 110 mmol/L [facility] CO2 29 22 - 32 mmol/L [facility] Anion gap 8 2 - 15 mmol/L [facility] BUN 8 8 - 25 mg/dL [facility] Creatinine 0.92 0.60 - 1.10 mg/dL [facility] Glucose 114 70 - 199 mg/dL [facility] Comment: Interpretive Data Fasting glucose >/= [...] ORDERABLES Final R esult Performing Organization Address [facility] Co de Phone Number LAURA [address] Department [place] [address] * POCT glucose (07/07/2022 8:36 PM CDT) Glucose, POC 126 70 - 199 mg/dL LAURA Blood 07/07/2022 8:36 PM CDT 07/07/2022 8:36 PM CDT Naomi Foote MD LAB POCT ORDERABLES - DEVICE F inal Result Performing Organization Address City/[facility] Co de Phone Number LAURA [phone] Department [place] [address] * CT Humerus Left W Contrast (07/07/2022 [...] Result * Potassium (07/07/2022 12:10 PM CDT) [facility] Potassium, pl 3.6 3.3 - 4.9 mmol/L LAURA CHAPARRO Blood 07/07/2022 12:1 0 PM CDT 07/07/2022 12:24 PM CDT Rashaun Benavidez MD LAB BLOOD ORDERABLES F inal Result LAURA CHAPARRO [address] Department [place] [address] * ECG 12 lead (07/07/2022 7:16 AM CDT) 07/07/2022 7:16 AM CDT Narrative [facility] - 07/07/2022 9:30 AM CDT Vent Rate: 69 bpm RR Interval: 860 msec [place] Interval: 154 msec QRS Duration: 95 msec QT Interval: 446 msec QTC Interval: 466 msec P-R-T [place]: 19 - 13 - -9 degrees SINUS RHYTHM NORMAL ECG Electronically Signed By: Dr. Romelia Kruse [facility] Rashaun Benavidez MD ECG ORDERABLES Final Result [facility] * eGFR (07/07/2022 5:08 AM CDT) eGFR [...] BLOOD ORDERABLES Final R esult LAURA CHAPARRO [address] [facility] [place] [address] * (ABNORMAL) Calcium, ionized (07/07/2022 5:08 AM CDT) Ca, ionized, bld 4.54(L) 4.60 - 5.20 mg/dL [facility] Ca, ionized, bld, calc 4.39(L) 4.60 - 5.20 mg/dL [facility] Blood 07/07/2022 5:08 AM CDT 07/07/2022 5:19 AM CDT us David WATSON LAB BLOOD ORDERABLES Final R esult Performing Organization Address [facility]/ZIP Co de Phone Number DONNATRAVIS CHAPARRO [address] [place] [address] * Phosphorus (07/07/2022 5:08 AM CDT) Phosphorus, pl 4.2 2.3 - 4.5 mg/dL [facility] Blood 07/07/2022 5:08 AM CDT 07/07/2022 5:19 AM CDT us David WATSON LAB BLOOD ORDERABLES Final R esult Performing Organization Address City/[facility]/ZIP Co de Phone Number LAURA CHAPARRO [address] [facility] [place] [address] * Magnesium (07/07/2022 5:08 AM CDT) Magnesium 2.0 1.4 - 2.5 mg/dL [facility] Blood 07/07/2022 5:08 AM CDT 07/07/2022 5:19 AM CDT us David Last PA LAB BLOOD ORDERABLES Final R esult Performing Organization Address City/[facility] Co de Phone Number LAURA CHAPARRO [address] Department of Laboratories [place], [place] [id number] * (ABNORMAL) CBC without differential (07/07/2022 5:08 [...] [facility] MCHC 32.7 32.3 - 35.7 g/dL [facility] CH RDW CV 13.8 11.1 - 14.9 % [facility] RDW SD 43.1 35.7 - 48.1 fL [facility] NRBC abs 0.00 0.00 - 0.01 K/cumm [facility] Blood 07/07/2022 5:08 AM CDT 07/07/2022 5:19 AM CDT David WATSON LAB BLOOD ORDERABLES Final R esult Performing Organization Address [facility]/ZIP Co de Phone Number LAURA CHAPARRO [address] Department [place] [address] * (ABNORMAL) Basic metabolic panel (07/07/2022 5:08 [...] [facility] BUN 11 8 - 25 mg/dL [facility] Creatinine 0.90 0.60 - 1.10 mg/dL [facility] Glucose 111 70 - 199 mg/dL [facility] Comment: Interpretive Data Fasting glucose >/= [...] 2022. Calcium 8.4(L) 8.5 - 10.3 mg/dL [facility] Blood 07/07/2022 5:08 AM CDT 07/07/2022 5:19 AM CDT David WATSON LAB BLOOD ORDERABLES Final R esult Performing Organization Address City/[facility]/ZIP Co de Phone Number [facility] [address] [employer] [place] [address] * POCT glucose (07/06/2022 8:09 PM CDT) Glucose, POC 148 70 - 199 mg/dL [facility] Blood 07/06/2022 8:09 PM CDT 07/06/2022 8:09 PM CDT Alvin Hilario MD LAB POCT ORDERABLES - DEVIC E Final Result Performing Organization Address City/[facility]/ZIP Co de Phone Number [facility] [address] Department [place] [address] * Potassium (07/06/2022 5:15 PM CDT) Potassium, pl 3.8 3.3 - 4.9 mmol/L [facility] Blood 07/06/2022 5:15 PM CDT 07/06/2022 5:22 PM CDT Alvin Hilario MD LAB BLOOD ORDERABLES Final Result Performing Organization Address [facility] [[email or web address]] de Phone Number [facility] [address] Department [place] [address] * ECG 12 lead (07/06/2022 7:06 AM CDT) 07/06/2022 7:06 AM CDT Narrative [facility] - 07/06/2022 7:41 AM CDT Vent Rate: 66 bpm RR Interval: 896 msec [place] Interval: 150 msec QRS Duration: 97 msec QT Interval: 428 msec QTC Interval: 442 msec P-R-T [place]: 24 - 9 - -12 degrees SINUS RHYTHM WITH SINUS ARRHYTHMIA MODERATE T-WAVE ABNORMALITY, CONSIDER ANTEROLATERAL ISCHEMIA ??[-0.1+ mV T-WAVE IN V3-V6] ABNORMAL ECG Compared to prior EKG, heart rate has decreased Electronically Signed By: Néstor Norris MD Rashaun Benavidez MD ECG ORDERABLES Final Result Performing Organization Address [facility] [[email or web address]] de Phone Number [facility] [email or web address] [facility] * eGFR (07/06/2022 6:45 AM CDT) eGFR 82 mL/min/1. 73 m2 [facility] Comment: Interpretive Data Reference Interval [...] Hilario MD LAB BLOOD ORDERABLES Final Result [facility] [address] Department [place] [address] * (ABNORMAL) Basic metabolic panel (07/06/2022 6:45 AM CDT) Sodium 137 135 - 145 mmol/L [facility] Potassium, pl 5.2(H) 3.3 - 4.9 mmol/L [facility] Comment:Hemolysis present. R esults may be affected. Chloride 102 97 - 110 mmol/L [facility] CO2 28 22 - 32 mmol/L [facility] Anion gap 7 2 - 15 mmol/L [facility] BUN 10 8 - 25 mg/dL [facility] Creatinine 0.90 0.60 - 1.10 mg/dL [facility] Glucose 161 70 - 199 mg/dL [facility] Comment: Interpretive Data Fasting glucose >/= [...] 2022. Calcium 8.1(L) 8.5 - 10.3 mg/dL [facility] Blood 07/06/2022 6:45 AM CDT 07/06/2022 6:57 AM CDT Alvin Hilario MD LAB BLOOD ORDERABLES Final Result Performing Organization Address City/[facility] Co de Phone Number LAURA [address] [employer] [place], [place] [id number] * Magnesium (07/06/2022 6:45 AM CDT) Pathologist [facility] Magnesium 2.0 1.4 - 2.5 mg/dL [facility] Blood 07/06/2022 6:45 AM CDT 07/06/2022 6:57 AM CDT Alvin Hilario MD LAB BLOOD ORDERABLES Final Result Performing Organization Address [facility] de Phone Number [facility] [address] [place] [address] * Phosphorus (07/06/2022 6:45 AM CDT) Pathologist [facility] Phosphorus, pl 3.5 2.3 - 4.5 mg/dL [facility] Blood 07/06/2022 6:45 AM CDT 07/06/2022 6:57 AM CDT Alvin Hilario MD LAB BLOOD ORDERABLES Final Result Performing Organization Address [facility] [[email or web address]] de Phone Number [facility] [address] [facility] [place] [address] * (ABNORMAL) CBC without differential (07/06/2022 5:17 AM CDT) WBC 10.8(H) 3.8 - 9.9 K/cumm [facility] Hgb 11.4(L) 11.9 - 15.5 g/dL [facility] Hct 34.9(L) 35.6 - 45.5 % [facility] Plt 223 150 - 400 K/cumm [facility] MPV 11.0 9.1 - 12.3 fL [facility] RBC 3.98 3.90 - 5.20 M/cumm [facility] MCV 87.7 81.3 - 96.4 fL [facility] MCH 28.6 27.1 - 33.3 pg [facility] MCHC 32.7 32.3 - 35.7 g/dL [facility] RDW CV 13.4 11.1 - 14.9 % [facility] RDW SD 41.4 35.7 - 48.1 fL [facility] CH NRBC abs 0.00 0.00 - 0.01 K/cumm [facility] CH Blood 07/06/2022 5:17 AM CDT 07/06/2022 5:26 AM CDT David WATSON LAB BLOOD ORDERABLES Final R esult Performing Organization Address [facility] Co de Phone Number [facility] [address] [place] [address] * (ABNORMAL) Calcium, ionized (07/06/2022 5:10 AM CDT) Pathologist [facility] Ca, ionized, bld 4.42(L) 4.60 - 5.20 mg/dL [facility] Ca, ionized, bld, calc 4.29(L) 4.60 - 5.20 mg/dL [facility] Blood 07/06/2022 5:10 AM CDT 07/06/2022 5:23 AM CDT David WATSON LAB BLOOD ORDERABLES Final R esult Performing Organization Address City/[facility] Co de Phone Number [facility] [address] [employer] [place] [address] * POCT glucose (07/05/2022 7:40 PM CDT) Glucose, POC 187 70 - 199 mg/dL [facility] Blood 07/05/2022 7:40 PM CDT 07/05/2022 7:40 PM CDT Alvin Hilario MD LAB POCT ORDERABLES - DEVIC E Final Result Performing Organization Address [facility] Co de Phone Number LAURA CHAPARRO [address] Department [place] [address] * Type and screen (07/05/2022 5:55 PM CDT) Mercedes, indirect Negative [facility] ABO Rh O Positive [facility] Blood 07/05/2022 5:55 PM CDT 07/05/2022 6:05 PM CDT Narrative [facility] - 07/05/2022 6:58 PM CDT Has the patient had Daratumumab or Isatuximab in the past 6 months?->Unknown Alvin Hilario MD LAB BLOOD BANK TEST ORDERAB LES Final Result Performing Organization Address [facility] [[email or web address]] de Phone Number LAURA CHAPARRO [address] Department [place] [address] * XR Chest 1 View (07/05/2022 3:23 [...] Lidocaine level (07/05/2022 3:00 PM CDT) Pathologist [facility] Lidocaine (Xylocaine) 11.8(C) 1.5 - 5.0 mcg/mL LAURA Comment: Repeated on Dilution Testing performed by: [facility], [address] [place]., [address] Blood 07/05/2022 3:00 PM CDT 07/05/2022 5:39 PM CDT Rashaun Benavidez MD LAB BLOOD ORDERABLES F inal Result [facility] [address] [facility] Department [place] [address] * eGFR (07/05/2022 10:15 AM CDT) Pathologist [facility] eGFR 78 mL/min/1. 73 m2 LAURA Comment: [...] ORDERABLES Final R esult Performing Organization Address [facility] Co de Phone Number [facility] [address] [place] [address] * (ABNORMAL) Calcium, ionized (07/05/2022 10:15 AM CDT) Ca, ionized, bld, calc 4.39(L) 4.60 - 5.20 mg/dL [facility] Ca, ionized, bld 4.37(L) 4.60 - 5.20 mg/dL [facility] Blood 07/05/2022 10:1 5 AM CDT 07/05/2022 10:29 AM CDT David WATSON LAB BLOOD ORDERABLES Final R esult Performing Organization Address City/[facility] Co de Phone Number [facility] [address] [employer] [place], [place] [id number] * (ABNORMAL) Phosphorus (07/05/2022 10:15 AM CDT) Phosphorus, pl 1.9(L) 2.3 - 4.5 mg/dL [facility] Blood 07/05/2022 10:1 5 AM CDT 07/05/2022 10:27 AM CDT David Last MS LAB BLOOD ORDERABLES Final R esult Performing Organization Address City/[facility] Co de Phone Number LAURA CHAPARRO [address] [facility] [place] [address] * Magnesium (07/05/2022 10:15 AM CDT) Pathologist [facility] Magnesium 2.0 1.4 - 2.5 mg/dL [facility] Blood 07/05/2022 10:1 5 AM CDT 07/05/2022 10:27 AM CDT [facility] Armandochelo MS LAB BLOOD ORDERABLES Final R esult Performing Organization Address [facility] [[email or web address]] de Phone Number LAURA CHAPARRO [address] [facility] [place] [address] * (ABNORMAL) CBC without differential (07/05/2022 10:15 AM CDT) Pathologist [facility] WBC 13.2(H) 3.8 - 9.9 K/cumm [facility] Hgb 11.9 11.9 - 15.5 g/dL [facility] Hct 36.7 35.6 - 45.5 % [facility] Plt 235 150 - 400 K/cumm [facility] MPV 10.7 9.1 - 12.3 fL [facility] RBC 4.25 3.90 - 5.20 M/cumm [facility] MCV 86.4 81.3 - 96.4 fL [facility] MCH 28.0 27.1 - 33.3 pg [facility] MCHC 32.4 32.3 - 35.7 g/dL [facility] RDW CV 13.0 11.1 - 14.9 % [facility] RDW SD 40.2 35.7 - 48.1 fL [facility] NRBC abs 0.00 0.00 - 0.01 K/cumm [facility] Blood 07/05/2022 10:1 5 AM CDT 07/05/2022 10:27 AM CDT Dvaid WATSON LAB BLOOD ORDERABLES Final R esult Performing Organization Address City/[facility]/ZIP Co de Phone Number LAURA [address] Department [place] [address] * (ABNORMAL) Basic metabolic panel (07/05/2022 10:15 AM CDT) Pathologist [facility] Sodium 138 135 - 145 mmol/L [facility] Potassium, pl 3.4 3.3 - 4.9 mmol/L [facility] Chloride 101 97 - 110 mmol/L [facility] CO2 28 22 - 32 mmol/L [facility] Anion gap 9 2 - 15 mmol/L [facility] BUN 6(L) 8 - 25 mg/dL [facility] Creatinine 0.94 0.60 - 1.10 mg/dL [facility] Glucose 190 70 - 199 mg/dL [facility] Comment: Interpretive Data Fasting glucose >/= [...] 2022. Calcium 8.4(L) 8.5 - 10.3 mg/dL [facility] Blood 07/05/2022 10:1 5 AM CDT 07/05/2022 10:27 AM CDT David WATSON LAB BLOOD ORDERABLES Final R esult Performing Organization Address [facility] Co de Phone Number LAURA CHAPARRO [address] Department [place] [address] * ECG 12 lead (07/05/2022 8:45 AM CDT) 07/05/2022 8:45 AM CDT Narrative [facility] - 07/05/2022 8:56 AM CDT Vent Rate: 112 bpm RR Interval: 533 msec [place] Interval: 154 msec QRS Duration: 93 msec QT Interval: 365 msec QTC Interval: 431 msec P-R-T [place]: 38 - -3 - 10 degrees SINUS TACHYCARDIA MODERATE T-WAVE ABNORMALITY, CONSIDER ANTERIOR ISCHEMIA ??[-0.1+ mV T-WAVE IN V3/V4] ABNORMAL ECG No significant change since previous tracing Electronically Signed By: Ruben Piedra MD, [facility] us Rashaun Benavidez MD ECG ORDERABLES Final Result Performing Organization Address [facility] Co de Phone Number [facility] * POCT glucose (07/05/2022 7:56 AM CDT) Glucose, POC 133 70 - 199 mg/dL [facility] Blood 07/05/2022 7:56 AM CDT 07/05/2022 7:56 AM CDT Alvin Hilario MD LAB POCT ORDERABLES - DEVIC E Final Result Performing Organization Address [facility] [[email or web address]] de Phone Number [facility] [place] [address] Department of Laboratories [place], [place] [address] * (ABNORMAL) Lidocaine level (07/04/2022 8:39 PM CDT) Lidocaine (Xylocaine) 5.7(H) 1.5 - 5.0 mcg/mL [facility] Comment:Testing performed by : [facility], [address] [facility], [place]., [address] Blood 07/04/2022 8:39 PM CDT 07/05/2022 3:34 AM CDT us Kylie Nova MD LAB BLOOD ORDERABLES Fi nal Result Performing Organization Address [facility] Co de Phone Number LAURA CHAPARRO [address] [facility] [place] [address] * POCT glucose (07/04/2022 8:25 PM CDT) Glucose, POC 161 70 - 199 mg/dL [facility] Blood 07/04/2022 8:25 PM CDT 07/04/2022 8:25 PM CDT Alvin Hilario MD LAB POCT ORDERABLES - DEVIC E Final Result Performing Organization Address [facility] Co de Phone Number LAURA CHAPARRO [address] [facility] [place] [address] * POCT glucose (07/04/2022 4:52 PM CDT) Glucose, POC 171 70 - 199 mg/dL [facility] Blood 07/04/2022 4:52 PM CDT 07/04/2022 4:52 PM CDT Alvin Hilario MD LAB POCT ORDERABLES - DEVIC E Final Result Performing Organization Address [facility] [[email or web address]] de Phone Number LAURA CHAPARRO [address] [place] [address] * ECG 12 lead (07/04/2022 12:08 PM CDT) 07/04/2022 12:0 8 PM CDT Narrative [facility] - 07/05/2022 9:30 AM CDT Vent Rate: 105 bpm RR Interval: 568 msec [place] Interval: 164 msec QRS Duration: 94 msec QT Interval: 381 msec QTC Interval: 442 msec P-R-T [place]: 43 - -6 - 27 degrees SINUS TACHYCARDIA POSSIBLE LEFT ATRIAL ENLARGEMENT ??[-0.1mV P-WAVE IN V1/V2] POSSIBLE LEFT VENTRICULAR HYPERTROPHY ??[VOLTAGE CRITERIA PLUS LAE OR QRS WIDENING] MODERATE T-WAVE ABNORMALITY, CONSIDER ANTERIOR ISCHEMIA ??[-0.1+ mV T-WAVE IN V3/V4] ABNORMAL ECG Compared to previous ECG the sinus tachycardia and th LVH are new. Electronically Signed By: Ruben Piedra MD, FACC [facility] Lili Nova MD ECG ORDERABLES Final R esult [facility] * POCT glucose (07/04/2022 11:36 AM CDT) Glucose, POC 115 70 - 199 mg/dL [facility] Blood 07/04/2022 11:3 6 AM CDT 07/04/2022 11:36 AM CDT Alvin Hilario MD LAB POCT ORDERABLES - DEVIC E Final Result Performing Organization Address [facility] Co de Phone Number [facility] [address] [place] [address] * eGFR (07/04/2022 8:35 AM CDT) eGFR 85 mL/min/1. 73 m2 [facility] Comment: Interpretive Data Reference Interval [...] ORDERABL ES Final Result Performing Organization Address [facility] Co de Phone Number [facility] [address] [facility] [employer] [place] [address] * (ABNORMAL) Vancomycin level trough Draw trough 30 minutes prior to dose. (07/04/2022 8:35 AM CDT) Pathologist [facility] Vancomycin trough 9.3(L) 10.0 - 20.0 mcg/mL [facility] Blood 07/04/2022 8:35 AM CDT 07/04/2022 9:36 AM CDT Narrative [facility] - 07/04/2022 10:04 AM CDT Draw trough 30 minutes prior to dose. Srinivasan Lizama MD LAB BLOOD ORDERABLES Final Resu lt Performing Organization Address [facility] [[email or web address]] de Phone Number [facility] [address] [place] [address] * (ABNORMAL) Calcium, ionized (07/04/2022 8:35 AM CDT) Ca, ionized, bld 4.36(L) 4.60 - 5.20 mg/dL [facility] Ca, ionized, bld, calc 4.51(L) 4.60 - 5.20 mg/dL [facility] Blood 07/04/2022 8:35 AM CDT 07/04/2022 8:47 AM CDT David WATSON LAB BLOOD ORDERABLES Final R esult Performing Organization Address [facility] Co de Phone Number [facility] [address] [address] Department [employer] [place] [address] * (ABNORMAL) Phosphorus (07/04/2022 8:35 AM CDT) [facility] Phosphorus, pl 1.0(C) 2.3 - 4.5 mg/dL [facility] Comment:Critical Result call ed to and read back by Lucio Langley, DATE: 2022-07-04 10:29:04 BY: Carmelita Hernandez Blood 07/04/2022 8:35 AM CDT 07/04/2022 9:37 AM CDT David WATSON LAB BLOOD ORDERABLES Final R esult [facility] [address] [address] [facility] [place] [address] * Magnesium (07/04/2022 8:35 AM CDT) [facility] Magnesium 2.0 1.4 - 2.5 mg/dL [facility] Blood 07/04/2022 8:35 AM CDT 07/04/2022 9:37 AM CDT David WATSON LAB BLOOD ORDERABLES Final R esult [facility] [address] [address] [facility] [place] [address] * (ABNORMAL) CBC without differential (07/04/2022 8:35 AM CDT) [facility] WBC 12.9(H) 3.8 - 9.9 K/cumm [facility] Hgb 13.0 11.9 - 15.5 g/dL [facility] Hct 39.3 35.6 - 45.5 % [facility] Plt 293 150 - 400 K/cumm [facility] MPV 10.7 9.1 - 12.3 fL [facility] RBC 4.65 3.90 - 5.20 M/cumm [facility] MCV 84.5 81.3 - 96.4 fL [facility] MCH 28.0 27.1 - 33.3 pg [facility] MCHC 33.1 32.3 - 35.7 g/dL [facility] RDW CV 12.8 11.1 - 14.9 % [facility] RDW SD 39.3 35.7 - 48.1 fL [facility] NRBC abs 0.00 0.00 - 0.01 K/cumm [facility] Blood 07/04/2022 8:35 AM CDT 07/04/2022 9:38 AM CDT us David WATSON LAB BLOOD ORDERABLES Final R esult [facility] [address] [address] Department [place] [address] * (ABNORMAL) Basic metabolic panel [...] ORDERABLES Final R esult Performing Organization Address City/[facility]/ZIP Co de Phone Number [facility] [address] [address] [facility] [place] [address] * POCT glucose (07/04/2022 7:40 AM CDT) Glucose, POC 103 70 - 199 mg/dL [facility] Blood 07/04/2022 7:40 AM CDT 07/04/2022 7:40 AM CDT Alvin Hilario MD LAB POCT ORDERABLES - DEVIC E Final Result Performing Organization Address [facility] Co de Phone Number [facility] [address] [address] [facility] [place] [address] * POCT glucose (07/03/2022 10:15 PM CDT) Glucose, POC 128 70 - 199 mg/dL [facility] Blood 07/03/2022 10:1 5 PM CDT 07/03/2022 10:15 PM CDT Srinivasan Lizama MD LAB POCT ORDERABLES - DEVICE Fi nal Result Performing Organization Address [facility] Co de Phone Number [facility] [address] [address] [place] [address] * Lidocaine level (07/03/2022 12:19 PM CDT) Lidocaine (Xylocaine) 4.3 1.5 - 5.0 mcg/mL [facility] Comment:Testing performed by : [facility], [address] [facility], [place]., [address] Blood 07/03/2022 12:1 9 PM CDT 07/03/2022 2:07 PM CDT Nik Logan APRN LAB BLOOD ORDERABL ES Final Result [facility] [address] [address] Department of Laboratories [place] [id number] * Critical Care (07/03/2022 9:40 AM CDT) [...] plan with the ICU team and other medical/application security consultant staff, making frequent assessments and decisions [...] AM CDT) eGFR 81 mL/min/1. 73 m2 [facility] Comment: Interpretive Data Reference Interval Normal ?>/= [...] APRN LAB BLOOD ORDERABL ES Final Result [facility] [address] [address] Department [place] [address] * (ABNORMAL) Calcium, ionized (07/03/2022 4:47 AM CDT) Ca, ionized, bld 4.49(L) 4.60 - 5.20 mg/dL [facility] Ca, ionized, bld, calc 4.34(L) 4.60 - 5.20 mg/dL [facility] Blood 07/03/2022 4:47 AM CDT 07/03/2022 5:47 AM CDT David Last PA LAB BLOOD ORDERABLES Final R esult Performing Organization Address [facility] Co de Phone Number [facility] [address] [address] [facility] [place] [address] * Phosphorus (07/03/2022 4:47 AM CDT) Phosphorus, pl 2.7 2.3 - 4.5 mg/dL [facility] Blood 07/03/2022 4:47 AM CDT 07/03/2022 5:47 AM CDT Jojolexi Robertschelo WATSON LAB BLOOD ORDERABLES Final R esult Performing Organization Address [facility] [[email or web address]] de Phone Number [facility] [address] [address] [facility] [place] [address] * Magnesium (07/03/2022 4:47 AM CDT) Pathologist [facility] Magnesium 2.3 1.4 - 2.5 mg/dL [facility] Blood 07/03/2022 4:47 AM CDT 07/03/2022 5:47 AM CDT Jojolexi Robertschelo MS LAB BLOOD ORDERABLES Final R esult Performing Organization Address [facility] [[email or web address]] de Phone Number [facility] [address] [address] [facility] [place] [address] * (ABNORMAL) CBC without differential (07/03/2022 4:47 AM CDT) WBC 11.7(H) 3.8 - 9.9 K/cumm [facility] Hgb 12.2 11.9 - 15.5 g/dL [facility] Hct 37.7 35.6 - 45.5 % [facility] Plt 250 150 - 400 K/cumm [facility] MPV 10.2 9.1 - 12.3 fL [facility] RBC 4.26 3.90 - 5.20 M/cumm [facility] MCV 88.5 81.3 - 96.4 fL [facility] MCH 28.6 27.1 - 33.3 pg [facility] MCHC 32.4 32.3 - 35.7 g/dL [facility] RDW CV 13.1 11.1 - 14.9 % [facility] RDW SD 42.7 35.7 - 48.1 fL [facility] NRBC abs 0.00 0.00 - 0.01 K/cumm [facility] Blood 07/03/2022 4:47 AM CDT 07/03/2022 5:49 AM CDT David WATSON LAB BLOOD ORDERABLES Final R esult [facility] [address] [address] Department [place] [address] * (ABNORMAL) Basic metabolic panel (07/03/2022 4:47 AM CDT) Sodium 140 135 - 145 mmol/L [facility] Potassium, pl 4.0 3.3 - 4.9 mmol/L [facility] Chloride 106 97 - 110 mmol/L [facility] CO2 26 22 - 32 mmol/L [facility] Anion gap 8 2 - 15 mmol/L [facility] BUN 16 8 - 25 mg/dL [facility] Creatinine 0.91 0.60 - 1.10 mg/dL [facility] Glucose 90 70 - 199 mg/dL [facility] Comment: Interpretive Data Fasting glucose >/= [...] 2022. Calcium 8.1(L) 8.5 - 10.3 mg/dL [facility] Blood 07/03/2022 4:47 AM CDT 07/03/2022 5:47 AM CDT David WATSON LAB BLOOD ORDERABLES Final R esult Performing Organization Address [facility] [[email or web address]] de Phone Number [facility] CH[facility] [address] [address] Department [place] [address] * ECG 12 lead (07/02/2022 9:59 PM CDT) 07/02/2022 9:59 PM CDT Narrative [facility] - 07/03/2022 8:31 AM CDT Vent Rate: 90 bpm RR Interval: 664 msec [place] Interval: 167 msec QRS Duration: 90 msec QT Interval: 416 msec QTC Interval: 464 msec P-R-T [place]: 29 - -4 - 79 degrees SINUS [...] ORDERABLES Fi nal Result Performing Organization Address [facility] Phone Number [facility] * POCT glucose (07/02/2022 8:26 PM CDT) Glucose, POC 81 70 - 199 mg/dL [facility] Blood 07/02/2022 8:26 PM CDT 07/02/2022 8:26 PM CDT Bridgett Fry MD LAB POCT ORDERABLES - DEVICE Fi nal Result Performing Organization Address [facility] Co de Phone Number [facility] [address] [address] Department [place] [address] * Critical Care (07/02/2022 7:33 PM CDT) [...] plan with the ICU team and other medical/application security consultant staff, making frequent assessments and decisions [...] DEVICE Fi nal Result Performing Organization Address City/[facility]/ZIP Co de Phone Number [facility] CHAP[facility] [address] [address] Department [place] [address] * Lidocaine level (07/02/2022 5:21 PM CDT) Lidocaine (Xylocaine) 2.5 1.5 - 5.0 mcg/mL [facility] Comment:Testing performed by : [facility], [address] [place]., [address] Blood 07/02/2022 5:21 PM CDT 07/03/2022 12:08 AM CDT David WATSON LAB BLOOD ORDERABLES Final R esult Performing Organization Address [facility] Co de Phone Number [facility] CH[facility] [address] [address] Department [place] [address] * Critical Care (07/02/2022 4:53 PM CDT) [...] plan with the ICU team and other medical/application security consultant staff, making frequent assessments and decisions [...] CDT) 07/02/2022 11:1 6 AM CDT Narrative [facility] - 07/02/2022 1:18 PM CDT Vent Rate: 125 bpm RR Interval: 480 msec [place] Interval: 168 msec QRS Duration: 88 msec QT Interval: 316 msec QTC Interval: 390 msec P-R-T [place]: 27 - -16 - 48 degrees SINUS TACHYCARDIA MINIMAL VOLTAGE CRITERIA FOR LVH, CONSIDER NORMAL VARIANT ??[MEETS CRITERIA IN ONE OF: R(aVL), S(V1), R(V5), R(V5/V6)+S(V1)] ANTERIOR MYOCARDIAL INFARCTION , PROBABLY RECENT [40+ ms Q WAVE AND/OR ST/T ABNORMALITY IN V3/V4] No change from prior EKG Electronically Signed By: Néstor Norris MD us David WATSON ECG ORDERABLES Final Result [facility] * TRANSTHORACIC ECHO (TTE) COMPLETE W DOPPLER/CF WO CONTRAST (07/02/2022 10:00 AM CDT) Anatomical Region Laterality Modality Ultrasound 07/02/2022 9:40 AM CDT Narrative 07/02/2022 10:50 AM CDT [address], [place] [address] Echocardiogram Report Patient Name: MARGY SALDANA : 1980 Study Date: 07/02/2022 9:40:23 AM Gender: F Tech: Location: [id number] Ref.Provider: NIK LOGAN Height(Cm): 165 BSA: 1.87 [...] Procedure Note Jason Saez MD - 07/02/2022 [place] [address] Echocardiogram Report Patient Name: Ernesto SALDANA ID: [id number] : [id number] Date: 07/02/2022 9:40:23 AM Gender: FAccession #: [id number] Tech: JCLocation: [id number] Ref.Provider: ALIREZA LOGANeight(Cm): 165 BSA: 1.87Weight(Kg): 76.3 [...] - 100 ] msec MVA5.00 MV Decel Ttpr031 [ 104 - 258 ] msec PV [...] Result * eGFR (07/02/2022 7:34 AM CDT) [facility] eGFR 74 mL/min/1. 73 m2 [facility] [...] ORDERABLES Final Resu lt Performing Organization Address City/[facility]/ZIP Co de Phone Number [facility] CHAPARR[facility] [address] [address] Vas[address] Department [employer] [place] [address] * (ABNORMAL) Troponin T high-sensitivity [...] Res ult - Final Performing Organization Address City/[facility]/ZIP Co de Phone Number [facility] CHAP[facility]O [address] [address] Vas[address] Department [employer] [place] [address] * Phosphorus (07/02/2022 7:34 AM CDT) Phosphorus, pl 2.7 2.3 - 4.5 mg/dL [facility] Blood 07/02/2022 7:34 AM CDT 07/02/2022 7:36 AM CDT Bridgett Fry MD LAB BLOOD ORDERABLES Final Resu lt Performing Organization Address [facility] Co de Phone Number [facility] [address] [address] [facility] [facility] [place] [address] * Magnesium (07/02/2022 7:34 AM CDT) Magnesium 2.0 1.4 - 2.5 mg/dL [facility] Blood 07/02/2022 7:34 AM CDT 07/02/2022 7:36 AM CDT Bridgett Fry MD LAB BLOOD ORDERABLES Final Resu lt Performing Organization Address [facility] [[email or web address]] de Phone Number [facility] CHAP[facility] [address] [address] Department [place] [address] * (ABNORMAL) CRP (acute phase) (07/02/2022 7:34 AM CDT) CRP 19.0(H) <=10.0 mg/L [facility] Blood 07/02/2022 7:34 AM CDT 07/02/2022 7:36 AM CDT Bridgett Fry MD LAB BLOOD ORDERABLES Final Resu lt Performing Organization Address [facility] Co de Phone Number [facility] CHAPARRO [address] [address] [facility] [place] [address] * (ABNORMAL) Basic metabolic panel (07/02/2022 7:34 [...] CH Creatinine 0.98 0.60 - 1.10 mg/dL [facility] Glucose 260(H) 70 - 199 mg/dL [facility] Comment: Interpretive Data Fasting glucose >/= [...] 2022. Calcium 8.5 8.5 - 10.3 mg/dL [facility] Blood 07/02/2022 7:34 AM CDT 07/02/2022 7:36 AM CDT Rakesh Trent Fry MD LAB BLOOD ORDERABLES Final Resu lt [facility] [address] [address] Department [place] [address] * Hepatitis panel, acute (07/02/2022 6:00 AM CDT) Hep A IgM Nonreactive Nonreactive [facility] Comment: Interpretive Data: If Hep A IgM Ab is reported as Equivocal, a new sample should be drawn in two weeks for testing. Current interpretive data was last revised on 19. Hep B core IgM Nonreactive Nonreactive [facility] Comment: Interpretive Data If HepB Core IgM Ab is reported as Equivocal, a new sample should be drawn in two weeks for testing. Current interpretive data was last revised on 19. Hep C Ab Nonreactive Nonreactive [facility] Comment: Interpretive Data Nonreactive: Antibodies to HCV [...] last revised on 2019. HepBsAg Nonreactive Nonreactive [facility] Blood 07/02/2022 6:00 AM CDT 07/02/2022 6:04 AM CDT Nik Logan APRN LAB MICROBIOLOGY - GENERAL ORDERABLES Final Result Performing Organization Address [facility] [[email or web address]] de Phone Number [facility] CHAPARRO [address] [address] Department [place] [address] * (ABNORMAL) Calcium, ionized (07/02/2022 6:00 AM CDT) Pathologist [facility] Ca, ionized, bld, calc 4.32(L) 4.60 - 5.20 mg/dL [facility] Ca, ionized, bld 4.27(L) 4.60 - 5.20 mg/dL [facility] Blood 07/02/2022 6:00 AM CDT 07/02/2022 6:04 AM CDT Nik Logan APRN LAB BLOOD ORDERABL ES Final Result Performing Organization Address [facility] de Phone Number [facility] CHAPARRO [address] [address] Department [place] [address] * (ABNORMAL) CBC without differential (07/02/2022 6:00 AM CDT) WBC 23.8(H) 3.8 - 9.9 K/cumm [facility] Hgb 12.7 11.9 - 15.5 g/dL [facility] Hct 39.7 35.6 - 45.5 % [facility] Plt 368 150 - 400 K/cumm [facility] MPV 10.8 9.1 - 12.3 fL [facility] RBC 4.58 3.90 - 5.20 M/cumm [facility] MCV 86.7 81.3 - 96.4 fL [facility] MCH 27.7 27.1 - 33.3 pg [facility] MCHC 32.0(L) 32.3 - 35.7 g/dL [facility] RDW CV 13.6 11.1 - 14.9 % [facility] RDW SD 41.9 35.7 - 48.1 fL [facility] NRBC abs 0.00 0.00 - 0.01 K/cumm [facility] Blood 07/02/2022 6:00 AM CDT 07/02/2022 6:04 AM CDT us Nik Logan DITCH REPAIRER LAB BLOOD ORDERABL ES Final Result [facility] [address] Department [place] [address] * Pneumonia PCR Sputum (07/02/2022 2:12 AM CDT) C. pneumoniae DNA Not Detected Not Detected [facility] Comment:Testing performed by : [facility], [address] [place] [address]., [address] Legionella pneumophila DNA Not Detected Not Detected [facility] Comment:Testing performed by : [facility], [address] [place] [address]., [address] M. pneumoniae DNA Not Detected Not Detected [facility] Comment:Testing performed by : [facility], [address] [place] [address]., [address] Adenovirus DNA Not Detected Not Detected [facility] Comment:Testing performed by : [facility], [address] [place] [address]., [address] Coronavirus (229E, OC43, HKU1, NL63) RNA Not Detected Not Detected [facility] Comment:Testing performed by : [facility], [address] [place] [address]., [address] Metapneumovirus RNA Not Detected Not Detected [facility] Comment:Testing performed by : [facility], [address] [place] [address]., [address] Rhinovirus/Enterov irus RNA Not Detected Not Detected [facility] Comment:Testing performed by : [facility], [address] [place]., [address] Influenza A RNA Not Detected Not Detected [facility] Comment:Testing performed by : [facility], [address] [place]., [address] Influenza B RNA Not Detected Not Detected [facility] Comment:Testing performed by : [facility], [address] [place]., [address] Parainfluenza virus (1-4) RNA Not Detected Not Detected [facility] Comment:Testing performed by : [facility], [address] [place]., [address] RSV RNA Not Detected Not Detected [facility] Comment:Testing performed by : [facility], [address] [place]., [address] Sputum 07/02/2022 2:12 AM CDT 07/02/2022 5:00 PM CDT Narrative [facility] - 07/02/2022 6:21 PM CDT The [employer] [...] of this assay have been determined by [facility]. Current interpretive data was last revised on 2021. Nik Logan APRN LAB MICROBIOLOGY - GENERAL ORDERABLES Final Result Performing Organization Address [facility]/ZIP Co de Phone Number [facility] [address] [place] [address] * Lactate (07/02/2022 2:12 AM CDT) Pathologist [facility] Lactate 1.2 0.7 - 2.0 mmol/L [facility] Blood 07/02/2022 2:12 AM CDT 07/02/2022 2:25 AM CDT Nik Logan APRN LAB BLOOD ORDERABL ES Final Result Performing Organization Address [facility] [[email or web address]] de Phone Number [facility] [address] [place] [address] * Influenza A/B, RSV, and COVID-19 PCR Nasopharyngeal (07/02/2022 2:12 AM CDT) [facility] COVID-19 RNA Negative Negative [facility] Influenza A RNA Negative Negative [facility] Influenza B RNA Negative Negative [facility] RSV RNA Negative Negative [facility] Comment: Interpretive data: This test is performed using the noodls Xpert Xpress CoV-2/Flu/RSV plus assay. This is [...] AM CDT 07/02/2022 2:25 AM CDT Narrative [facility] - 07/02/2022 3:06 AM CDT Is the Patient experiencing symptoms consistent with COVID?->No Reason for testing?->Patient history unknown Nik Hudson [place] RANJANA LAB MICROBIOLOGY - GENERAL ORDERABLES Final Result [facility] [address] Department [place] [address] * Pneumonia PCR with aerobic culture and Gram stain Sputum (07/02/2022 2:12 AM CDT) Direct Specimen Exam Molecular Analysis: Rapid molecular analysis has NOT detected bacterial targets (for a list of targets evaluated, refer to the interpretive data for this specimen). Correlation of molecular analysis with culture results is recommended. [facility] Comment:Testing performed by : [facility], [address] [place]., [address] Direct Specimen Exam Stain: Abundant polymorphonuclear leukocytes seen. Few squamous epithelial cells seen. Rare mixed bacterial renay seen on Gram stain. [facility] Comment:Testing performed by : [facility], [address] [place]., [address] Report Final Report: Growth indicates upper respiratory renay. [facility] Comment:Testing performed by : [facility], [address] [place]., [address] Organism GROWTH INDICATES UPPER RESPIRATORY RENAY. [facility] Sputum 07/02/2022 2:12 AM CDT 07/02/2022 1:26 PM CDT Narrative [facility] - 07/04/2022 2:24 PM CDT When rapid molecular testing results are reported, testing completed using the [employer] Pneumonia Panel. ??This molecular assay detects: Acinetobacter [...] performance characteristics have been confirmed by the [facility]. ??The performance of the [employer] Pneumonia Panel has not been established for monitoring treatment of infection and bacterial nucleic acids may persist independent of organism viability. Nik Logan APRN LAB MICROBIOLOGY - GENERAL ORDERABLES Final Result [facility] CHAPARRO [address] Department [place] [address] * Blood culture Blood Antecubital, left (07/02/2022 1:31 AM CDT) Report Final Report: No growth [facility] Comment:Testing performed by : [facility], [address] [place] [address] Blood (Antecubital, left) 07/02/2022 1:31 AM CDT [...] organism identification may be performed using the Esp[employer]ene Gram-Positive Blood Culture Assay. This assay detects microbial DNA in positive blood culture broth via hybridization of target DNA to capture oligonucleotides on a microarray. This assay has been cleared by the [place] Food and Drug Administration and its performance characteristics have been verified by the [facility]biology [facility]. 5. ?For questions about this culture, contact the Microbiology Laboratory at [phone]. Interpretive data was last revised on 2019. Nik Logan APRN LAB MICROBIOLOGY - GENERAL ORDERABLES Final Result Performing Organization Address [facility] Co de Phone Number [facility] CHAPARRO [address] [address] [place] [address] * Potassium, whole blood (07/01/2022 11:05 PM CDT) [facility] Potassium, bld 4.3 3.3 - 4.9 [...] ORDERABL ES Final Result Performing Organization Address [facility] Co de Phone Number LAURA [address] [address] Department [employer] [place], [place] [address] * Type and screen (07/01/2022 11:05 PM CDT) Mercedes, indirect Negative [facility] ABO Rh O Positive [facility] Blood 07/01/2022 11:0 5 PM CDT 07/01/2022 11:47 PM CDT Narrative [facility] - 07/02/2022 12:24 AM CDT Has the patient had Daratumumab or Isatuximab in the past 6 months?->Unknown Bridgett Fry MD LAB BLOOD BANK TEST ORDERABLES Final Result Performing Organization Address [facility] Co de Phone Number [facility] [address] [address] [employer] [place] [address] * (ABNORMAL) Protime-INR (07/01/2022 9:22 PM CDT) PT 16.1(H) 9.2 - 13.5 sec [facility] INR 1.5(H) 0.9 - 1.2 [facility] Comment: [...] ORDERABLES Final Resu lt Performing Organization Address City/[facility]/ZIP Co de Phone Number [facility] [address] [address] [employer] [place] [place] [address] * (ABNORMAL) aPTT (07/01/2022 9:22 [...] Resu lt Performing Organization Address City/State/ZIP Co tx Phone Number LAURA [address] [facility] Department of Laboratories [place] [phone] * Critical Care (07/01/2022 9:11 PM CDT) [...] plan with the ICU team and other medical/application security consultant staff, making frequent assessments and decisions [...] 50 ng/mL CERNER Comment:Testing performed by : [facility], [address] [place]., [address] 6- Acetylmorphine Conf, Ur Does Not Confirm CutOff 10 ng/mL CERNER Comment:Testing performed by : [facility], [address] [place]., [address] Hydrocodone Conf, Ur Confirmed Positive CutOff 50 ng/mL CERNER Comment:Testing performed by : [facility], [address] [place]., [address] Morphine Conf, Ur Does Not Confirm CutOff 50 ng/mL CERNER Comment:Testing performed by : [facility], [address] [place]., [address] Hydromorphone Conf, Ur Does Not Confirm CutOff [...] needed. Performance characteristics were determined by the [facility] in a manner consistent with CLIA requirement and has not been cleared or approved by the U.S. Food and Drug Administration. Current interpretive data was last revised 2020. Testing performed by: [facility], [address] [place]., [address] Urine 07/01/2022 8:56 PM CDT 07/02/2022 12:49 PM CDT Nik Logan APRN LAB URINE ORDERABL ES Final Result Performing Organization Address [facility] [[email or web address]] de Phone Number LAURA CHAPARRO [address] [place] [address] * Methadone Confirmation, Urine (07/01/2022 8:56 PM CDT) Methadone Conf, Ur Confirmed Positive CutOff 75 ng/mL LAURA Comment:Testing performed by : [facility], [address] [place] [address]., [address] Methadone Metabolite (EDDP) Conf, Ur Confirmed Positive [...] needed. Performance characteristics were determined by the [facility] in a manner consistent with CLIA requirement and has not been cleared or approved by the U.S. Food and Drug Administration. Current interpretive data was last revised 2020. Testing performed by: [facility], [address] [place] [address]., [address] Urine 07/01/2022 8:56 PM CDT 07/02/2022 12:49 PM CDT Nik Logan APRN LAB URINE ORDERABL ES Final Result Performing Organization Address [facility] Co de Phone Number LAURA CHAPARRO [address] [place] [place] [address] * Fentanyl Confirmation, Urine (07/01/2022 8:56 PM CDT) Fentanyl Conf, Ur Confirmed Positive Cutoff 0.3ng/mL LAURA Comment:Testing performed by : [facility], [address] [place] [address]., [address] Acetylfentanyl Conf, Ur Confirmed Positive Cutoff 1 ng/mL LAURA Comment:Testing performed by : [facility] [address] [place] [address] Acrylfentanyl Conf, Ur Confirmed Positive Cutoff 1 ng/mL CERNER Comment:Testing performed by : [facility], [address] [place]., [address] Furanylfentanyl Conf, Ur Does Not Confirm Cutoff 1 ng/mL CERNER Comment:Testing performed by : [facility], [address] [place]., [address] Fentanyl Metabolite (Norfentanyl) Conf, Ur Confirmed Positive CutOff 5 ng/mL [facility] Comment: Interpretive Data This test detects the presence or absence of drug compounds using LC Tandem mass spectrometry and is not intended to assess compliance with prescribed medications. While this test is highly specific, false positive and false negative results may occur in very rare circumstances. Contact the laboratory for consultation, if needed. Performance characteristics were determined by the [facility] in a manner consistent with CLIA requirement and has not been cleared or approved by the U.S. Food and Drug Administration. Current interpretive data was last revised 2020. Testing performed by: [facility], [address] [place]., [address] Urine 07/01/2022 8:56 PM CDT 07/02/2022 12:49 PM CDT us Nik Logan APRN LAB URINE ORDERABL ES Final Result [facility] [address] Department [place] [address] * (ABNORMAL) Urinalysis, microscopic only (07/01/2022 8:56 PM CDT) WBC, ur 6-10(A) 0 - 5 /HPF [facility] RBC, ur 3-5(A) 0 - 2 /HPF [facility] Epithelial cells, squamous, ur 1-5 0 - 5 /HPF [facility] Bacteria, ur Trace(A) [facility] Mucous, ur Present(A) [facility] Urine 07/01/2022 8:56 PM CDT 07/01/2022 11:28 PM CDT Nik Logan APRN LAB URINE ORDERABL ES Final Result Performing Organization Address [facility] Co de Phone Number LAURA CHAPARRO [address] [place] [address] * (ABNORMAL) Lidocaine level (07/01/2022 8:56 PM CDT) Lidocaine (Xylocaine) 7.9(C) 1.5 - 5.0 mcg/mL LAURA Comment:Testing performed by : [facility], [address] [place] [address]., [id number] Blood 07/01/2022 8:56 PM CDT 07/01/2022 10:23 PM CDT Nik Logan APRN LAB BLOOD ORDERABL ES Final Result Performing Organization Address [facility] [[email or web address]] de Phone Number LAURA [address] [place] [address] * (ABNORMAL) Drugs of Abuse Screen, Urine [...] APRN LAB URINE ORDERABL ES Final Result [facility] [address] Department [place] [address] * (ABNORMAL) Urinalysis reflex to [...] tendency for uric acid stone formation. Source: [employer]. Last revised 04-07-2017 us Nik Hudson Franklin DITCH REPAIRER LAB URINE ORDERABL ES Final Result LAURA CHAPARRO [address] Department [place] [address] * XR Chest 1 View (07/01/2022 8:53 [...] PM CDT) 07/01/2022 8:47 PM CDT Narrative [facility] - 07/02/2022 8:08 AM CDT Vent Rate: 121 bpm RR Interval: 495 msec [place] Interval: 168 msec QRS Duration: 130 msec QT Interval: 284 msec QTC Interval: 356 msec P-R-T [place]: 16 - -34 - 85 degrees SINUS TACHYCARDIA LEFTWARD AXIS VOLTAGE CRITERIA FOR LVH ANTERIOR MYOCARDIAL INFARCTION , OF INDETERMINATE AGE T-WAVE ABNORMALITY, CONSIDER ISCHEMIA Electronically Signed By: Chas Hirsch MD, [facility] Nik Logan APRN ECG ORDERABLES Fi nal Result Performing Organization Address [facility] Co de Phone Number [facility] * Check Sample (07/01/2022 8:42 PM CDT) ABO Rh O Positive [facility] HCLL OTHER 07/01/2022 8:42 PM CDT 07/02/2022 4:21 AM CDT Bridgett Fry MD LAB BLOOD ORDERABLES Final Resu lt Performing Organization Address City/[facility] Co de Phone Number [facility] [address] Department [place] [address] * eGFR (07/01/2022 8:42 PM CDT) eGFR [...] APRN LAB BLOOD ORDERABL ES Final Result [facility] [address] Department of Laboratories [place] [phone] * COVID-19 Coronavirus RNA Nasopharyngeal (07/01/2022 8:42 PM CDT) COVID-19 RNA Negative Negative [facility] Nasopharyngeal 07/01/2022 8: 42 PM CDT 07/01/2022 8:54 PM CDT Narrative [facility] - 07/01/2022 9:36 PM CDT Is the patient experiencing any symptoms consistent with COVID (eg. Fever, cough, shortness of breath)?->Yes What is the reason for testing?->Symptomatic (Rapid) Date of Symptom Onset->07/01/22 ??Interpretive data: Synonyms for this test include: PCR and NAAT . ??This test is performed using the noodls Xpert Xpress plus assay. This is a [...] . ??This test is performed using the noodls Xpert Xpress plus assay. This is a [...] MICROBIOLOGY - GENERAL ORDERABLES Final Result LAURA [address] Department [place] [address] * hCG, blood, quantitative (07/01/2022 8:42 PM [...] ORDERABL ES Final Result Performing Organization Address [facility] Co de Phone Number LAURA CHAPARRO [address] Department of [employer] [place], [place] [id number] * (ABNORMAL) CBC without differential (07/01/2022 8:42 PM CDT) WBC 23.3(H) 3.8 - 9.9 K/cumm [facility] Hgb 13.2 11.9 - 15.5 g/dL [facility] Hct 40.0 35.6 - 45.5 % [facility] Plt 344 150 - 400 K/cumm [facility] MPV 10.3 9.1 - 12.3 fL [facility] RBC 4.62 3.90 - 5.20 M/cumm [facility] MCV 86.6 81.3 - 96.4 fL [facility] MCH 28.6 27.1 - 33.3 pg [facility] MCHC 33.0 32.3 - 35.7 g/dL [facility] RDW CV 13.4 11.1 - 14.9 % [facility] RDW SD 42.3 35.7 - 48.1 fL [facility] NRBC abs 0.00 0.00 - 0.01 K/cumm [facility] Blood 07/01/2022 8:42 PM CDT 07/01/2022 8:51 PM CDT Nik Logan APRN LAB BLOOD ORDERABL ES Final Result Performing Organization Address City/[facility]/ZIP Co de Phone Number LAURA CHAPARRO [address] Department [place] [address] * (ABNORMAL) Troponin T high-sensitivity (07/01/2022 8:42 PM CDT) Trop T hs 77(H) <=14 ng/L [facility] Comment: Slight hemolysis may result in decreased troponin measurement. Consider recollection. Interpretive Data For further hscTnT resources including the diagnostic algorithm and an aid in interpretation, copy and paste this link: https://nrl.testcatalog.org/show/hsTrop Current Interpretive Data last revised 2020. Blood 07/01/2022 8:42 PM CDT 07/01/2022 8:50 PM CDT Nik Logan APRN LAB BLOOD ORDERABL ES Final Result Performing Organization Address [facility] [[email or web address]] de Phone Number LAURA [address] [facility] [place] [address] * (ABNORMAL) Creatine kinase (CK), total (07/01/2022 8:42 PM CDT) CK 327(H) 30 - 200 Units/L [facility] Comment:Hemolysis present. R esults may be affected. Blood 07/01/2022 8:42 PM CDT 07/01/2022 8:50 PM CDT Nik Logan APRN LAB BLOOD ORDERABL ES Final Result Performing Organization Address [facility] de Phone Number DONNATRAVIS [address] [facility] [place] [address] * (ABNORMAL) Calcium, ionized (07/01/2022 8:42 PM CDT) Ca, ionized, bld, calc 4.15(L) 4.60 - 5.20 mg/dL [facility] Ca, ionized, bld 4.15(L) 4.60 - 5.20 mg/dL [facility] Blood 07/01/2022 8:42 PM CDT 07/01/2022 8:56 PM CDT Nik Logan APRN LAB BLOOD ORDERABL ES Final Result Performing Organization Address [facility] [[email or web address]] de Phone Number DONNATRAVIS [address] [place] [address] * Phosphorus (07/01/2022 8:42 PM CDT) Phosphorus, pl 2.4 2.3 - 4.5 mg/dL CERNER Blood 07/01/2022 8:42 PM CDT 07/01/2022 8:50 PM CDT Nik [facility]LOOD ORDERABL ES Final Result Performing Organization Address [facility] [[email or web address]] de Phone Number [facility] [address] [place] [address] * Magnesium (07/01/2022 8:42 PM CDT) Pathologist [facility] Magnesium 2.1 1.4 - 2.5 mg/dL [facility] Blood 07/01/2022 8:42 PM CDT 07/01/2022 8:50 PM CDT Nik Logan [facility] LAB BLOOD ORDERABL ES Final Result Performing Organization Address [facility] [[email or web address]] de Phone Number [facility] [address] Department [place] [place] [address] * (ABNORMAL) Comprehensive metabolic panel (07/01/2022 8:42 PM CDT) Pathologist [facility] Sodium 135 135 - 145 mmol/L [facility] Potassium, pl 5.6(H) 3.3 - 4.9 mmol/L [...] ORDERABL ES Final Result Performing Organization Address [facility]/ZIP Co de Phone Number DONNATRAVIS CHAPARRO [address] [employer] [place] [address] * Infection Prevention MRSA Only (Staphylococcus aureus) PCR Nasal (07/01/2022 8:42 PM CDT) [facility] PCR Scrn, Methicillin resistant Staphylococcus aureus (MRSA) Not Detected Not Detected [facility] Comment: Testing performed using Nucleic Acid Amplification with the noodls Xpert MRSA Assay. This assay detects DNA from SCCmec strains of Staphylococcus aureus using Real- Time PCR and has been cleared by the FDA. Performance characteristics have been verified by the [facility]. Nasal 07/01/2022 8:42 PM CDT 07/01/2022 8:54 PM CDT Nik Logan APRN LAB MICROBIOLOGY - GENERAL ORDERABLES Final Result Performing Organization Address City/[facility]/ZIP Co de Phone Number DONNATRAVIS [address] Department [employer] [place] [address] * POCT glucose (07/01/2022 8:16 PM CDT) Glucose, POC 128 70 - 199 mg/dL LAURA CHAPARRO Blood 07/01/2022 8:16 PM CDT 07/01/2022 8:16 PM CDT us Bridgett Fry MD LAB POCT ORDERABLES - DEVICE Fi nal Result LAURA CHAPARRO [address] Department [place] [address] documented in this encounter Visit Diagnoses Diagnosis [...] parameters not met)1927 (Not Given - Provider: Nitlon Mccann, ZANE - Reason: Patient/family refused) [id number] [...] documented as of this encounter Care Teams Loan Assistant Relationship Specialty Start Date End Date No, Physician PCP - General 01/31/21 Rashaun Benavidez MD [address] [address] Consulting Physician Cardiology 07/08/22 Miscellaneous, Not In File 07/08/22 documented as of this encounter
--- OUTSIDE RECORDS SUMMARY | 2024-03-13 06:46 | XMS_ITS | Encounter Summary ---
Author Organization [facility] Healthcare Address [address] [place] [address] Care Team Providers Care Cfd Engineer Name Role Phone Unavailable Primary Care Provider Unavailabl e Encounter Details Date Type Department Care Team (Late st Contact Info) Description 05/15/2014 3:36 PM READING INTERVENTION TEACHER - 05/18/2014 1:50 PM READING INTERVENTION TEACHER [place] [address] [address] Drug withdrawal (HCC); Opioid type dependence, abuse (HCC); Bipolar affective disorder (HCC) Social History Tobacco Use Types Packs/Day Years Used Date Smoking Tobacco: Never Assessed Comments Unknown Sex and Gender Information Value Date Recorded Sex Assigned at Not on file Legal Sex Female 3:16 AM READING INTERVENTION TEACHER Gender Identity Not on file Sexual Orientation Not on file documented as of this encounter Last Filed Vital Signs Vital Sign Reading Time Taken Comments Blood Pressure 117/79 05/18/2014 12:54 PM READING INTERVENTION TEACHER Pulse 92 05/18/2014 12:54 PM READING INTERVENTION TEACHER Temperature - - Respiratory Rate - - Oxygen Saturation - - Inhaled Oxygen Concentration - - Weight 67.3 kg (148 lb 6.4 oz) 05/15/2014 3:38 P M READING INTERVENTION TEACHER Height 160 cm (5' 2.99 ) 05/15/2014 3:38 PM READING INTERVENTION TEACHER Body Mass Index 26.29 05/15/2014 3:38 PM READING INTERVENTION TEACHER documented in this encounter Discharge Summaries * ProviderJazmin MD - 05/18/2014 12:00 AM CST DISCHARGE SUMMARY Patient: MARGY SALDANA. Account: [id number] Room No: 511-02 : 1980 Patient Type: IP Attend.: Arslan Funes M.D. Admit Date: 05/15/2014 Dict.: Arslan Funes M.D. Disch. Date: Discharge Diagnosis: Acute opiate withdrawal. Chief Complaint/Brief History of Present Illness: Please see History and Physical. Hospital Course: The patient underwent successful medical stabilization on the [facility] Service, and she is now ready for discharge with outpatient followup. Discharge Medications: 1. Bupropion SR 200 mg daily. 2. Thorazine 50 mg daily. 3. Depakote ER 500 mg at bedtime. 4. Clonidine 0.1 mg q.6 hours p.r.n. 5. Diazepam 10 mg t.i.d. p.r.n. Activity: As tolerated. Diet: Diet as at home. Followup Care: As per [facility]. Kaity Cordero/ct TD: 05/18/2014 11:05 Electronically Authenticated by: Arslan Funes MD On 05/19/2014 06:04 AM READING INTERVENTION TEACHER documented in this encounter H&P Notes * ProviderJazmin MD - 05/15/2014 12:00 AM CST HISTORY AND PHYSICAL Patient: MARGY SALDANA Account: [id number] Room No: 511-02 : 1980 Patient Type: IP Attend.: Arslan Funes M.D. Admit Date: 05/15/2014 Dict.: Arslan Funes M.D. Disch. Date: REASON FOR ADMISSION: Acute opiate withdrawal. CHIEF COMPLAINT AND BRIEF HISTORY OF PRESENT ILLNESS: This is a very pleasant 33 year female who was recently at [facility] in the [facility] Program for symptoms of acute opiate withdrawal, [...] withdrawal. PLAN: Continue medical stabilization on the [facility] Service. She remains stable at this time, will monitor her symptoms and also continue her bipolar medications. Further disposition to follow. Arslan Funes M.D. ESSIE/yvette TD: 05/16/2014 08:27 Electronically Authenticated by: Arslan Funes MD On 05/16/2014 03:08 PM READING INTERVENTION TEACHER documented in this encounter Plan of Treatment Not on file documented as of this encounter Procedures Procedure Name Priority Date/Time Associated Diagnosis Comments DISCHARGE LABORATORY CUMULATIVE REPORT 05/18/2014 SERUM ETHANOL Routine 05/15/2014 4:23 PM READING INTERVENTION TEACHER PLASMA PROTHROMBIN TIME (PT) Routine 05/15/2014 4:23 PM READING INTERVENTION TEACHER PLASMA PARTIAL THROMBOPLASTIN TIME (PTT) Routine 05/15/2014 4:23 PM READING INTERVENTION TEACHER PLASMA LIPASE Routine 05/15/2014 4:23 PM READING INTERVENTION TEACHER PLASMA COMPREHENSIVE METABOLIC PANEL Routine 05/15/2014 4:23 PM READING INTERVENTION TEACHER PLASMA AMYLASE Routine 05/15/2014 4:23 PM READING INTERVENTION TEACHER BLOOD CELL COUNT (CBC), MORPHOLOGIC EXAM Routine 05/15/2014 4:23 PM READING INTERVENTION TEACHER URINE DRUG SCREEN Routine 05/15/2014 3:5 1 PM READING INTERVENTION TEACHER URINE CHORIONIC GONADOTROPIN (HCG) Routine 05/15/2014 3:51 PM READING INTERVENTION TEACHER documented in this encounter Results * DISCHARGE LABORATORY CUMULATIVE REPORT (05/18/2014) Narrative 05/18/2014 Ordered by an unspecified provider. us Historical Provider LAB BLOOD ORDERABLES Rachna reina Result * (ABNORMAL) Blood cell count (CBC), morphologic exam (05/15/2014 4:23 PM READING INTERVENTION TEACHER) Rdw 14.8(H) 11.5 - 14.5 % HISTORICAL [...] RESULTS Blood specimen (specimen) 05/15/2014 4:23 PM READING INTERVENTION TEACHER us Arslan Funes MD LAB BLOOD ORDERABLES Final Resu lt HISTORICAL RESULTS * Plasma prothrombin time (PT) (05/15/2014 4:23 PM READING INTERVENTION TEACHER) Prothrombin time (PT) 13.4 11.5 - 15.5 seconds HISTORICAL RESULTS INR 0.98 0.81 - 1.21 HISTORIC AL RESULTS Plasma 05/15/2014 4:23 PM READING INTERVENTION TEACHER Arslan Funes MD LAB BLOOD ORDERABLES Final Resu lt Performing Organization Address [facility] de Phone Number HISTORICAL RESULTS * Plasma partial thromboplastin time (PTT) (05/15/2014 4:23 PM READING INTERVENTION TEACHER) APTT 29.8 21.5 - 39.0 seconds HISTORICAL RESULTS Plasma 05/15/2014 4:23 PM READING INTERVENTION TEACHER Arslan Funes MD LAB BLOOD ORDERABLES Final Resu lt Performing Organization Address [facility] de Phone Number HISTORICAL RESULTS * Serum ethanol (05/15/2014 4:23 PM READING INTERVENTION TEACHER) Ethanol, sr Absent 0 - 0 mg/dl HISTOR ICAL RESULTS Serum 05/15/2014 4:23 PM READING INTERVENTION TEACHER Arslan Funes MD LAB BLOOD ORDERABLES Final Resu lt Performing Organization Address [facility] de Phone Number HISTORICAL RESULTS * (ABNORMAL) Plasma comprehensive metabolic panel (05/15/2014 4:23 PM READING INTERVENTION TEACHER) BUN 9 8 - 24 mg/dl HISTORICAL [...] HISTORICAL RESULTS Comment: If this individual is -Micronesian, multiply result by 1.21 Repeated results of less than 60 is indicative of chronic kidney disease. MDRD formula has not been validated on individuals greater than 70 years old. Plasma 05/15/2014 4:23 PM READING INTERVENTION TEACHER Result [facility] Arslan Funes MD LAB BLOOD ORDERABLES Final Resu lt Performing Organization Address [facility] Phone Number HISTORICAL RESULTS * Plasma lipase (05/15/2014 4:23 PM READING INTERVENTION TEACHER) Lip 21 20 - 50 Units/L HISTORICAL RESULTS Plasma 05/15/2014 4:23 PM READING INTERVENTION TEACHER Result [facility] Arslan Funes MD LAB BLOOD ORDERABLES Final Resu lt Performing Organization Address [facility] Phone Number HISTORICAL RESULTS * Plasma amylase (05/15/2014 4:23 PM READING INTERVENTION TEACHER) Sherri, pl 40 28 - 100 Units/L HISTORICAL RESULTS Plasma 05/15/2014 4:23 PM READING INTERVENTION TEACHER Result [facility] Arslan Funes MD LAB BLOOD ORDERABLES Final Resu lt Performing Organization Address [facility] Phone Number HISTORICAL RESULTS * Urine chorionic gonadotropin (HCG) (05/15/2014 3:51 PM READING INTERVENTION TEACHER) HCG, ur Negative HISTORICAL RESULTS Specific gravity, ur 1.023 HISTORICAL RESULTS Urine 05/15/2014 3:5 1 PM READING INTERVENTION TEACHER Result [facility] Arslan Funes MD LAB BLOOD ORDERABLES Final Resu lt Performing Organization Address [facility] de Phone Number HISTORICAL RESULTS * (ABNORMAL) Urine drug screen (05/15/2014 3:51 PM READING INTERVENTION TEACHER) Amphetamine, ur Negative Negative HISTORICAL RESULTS Barbiturates, [...] Average HISTORICAL RESULTS Urine 05/15/2014 3:51 PM READING INTERVENTION TEACHER us Arslan Funes MD LAB BLOOD ORDERABLES Final Resu lt HISTORICAL RESULTS documented in this encounter Visit Diagnoses Diagnosis Drug withdrawal (HCC) Drug withdrawal Opioid type dependence, abuse (HCC) Opioid type dependence, unspecified abuse Bipolar affective disorder (HCC) Bipolar disorder, unspecified documented in this encounter
--- OUTSIDE RECORDS SUMMARY | 2024-03-13 06:46 | XMS_ITS | Encounter Summary ---
Author Organization [facility] Address [address] [place] [address] Care Team Providers Care Vrt Mechanic Name Role Phone No, Physician Primary Care Provider [phone] Encounter Details Date Type Department Care Team (Late st Contact Info) Description 06/30/2022 Orders Only [facility] Cardiology [address] [place] [address] Ronny Barrientos MD [facility] [place] [id number] Social History Tobacco Use Types Packs/Day Years [...] often do you attend chur ch or mu-ism services? Patient declined 07/05/2022 Do you belong to any clubs o r organizations such as islam groups, unions, fraternal or athletic groups, or [...] slept in a jail (including now)? No 07/05/2022 Comments No Sex and Gender Information Value Date Recorded Sex Assigned at Not on file Legal Sex Female 3:16 AM AUTO AIR CONDITIONING APPRENTICE Gender Identity Not on file Sexual Orientation [...] documented as of this encounter Care Teams Vrt Mechanic Relationship Specialty Start Date End Date No, Physician PCP - General 01/31/21 documented as of this encounter
--- OUTSIDE RECORDS SUMMARY | 2024-03-13 06:46 | XMS_ITS | Encounter Summary ---
Author Organization [facility] Healthcare Address [address] [place] [address] Care Team Providers Care Detasseling Crew Supervisor Name Role Phone Unavailable Primary Care [...] on file Legal Sex Female 3:16 AM ACCOUNTING RECONCILIATION CLERK Gender Identity Not on file Sexual [...]
--- OUTSIDE RECORDS SUMMARY | 2024-03-13 06:46 | XMS_ITS | Encounter Summary ---
Author Organization [facility] Healthcare Address [address] [place] [address] Care Team Providers Care Appraiser Boats And Marine Name Role Phone Unavailable Primary Care Provider [...] on file Legal Sex Female 3:16 AM CONTACT CENTER CONSULTANT Gender Identity Not on file Sexual [...]
--- OUTSIDE RECORDS SUMMARY | 2024-03-13 06:46 | XMS_ITS | Encounter Summary ---
Author Organization [facility] Healthcare Address [address] [place] [address] Care Team Providers Care Sustainable Agriculture Faculty Name Role Phone Unavailable Primary Care Provider Unavailabl e Encounter Details Date Type Department Care Team (Late st Contact Info) Description 06/16/2015 10:25 AM CDT - 06/19/2015 12:33 PM CDT [place] [address] [address] Opioid dependence with withdrawal (CMS/HCC); Major depressive disorder, single episode (CMS/HCC); Allergy status to penicillin; Anxiety disorder Social History Tobacco Use Types Packs/Day Years Used Date Smoking Tobacco: Never Assessed Comments Unknown Sex and Gender Information Value Date Recorded Sex Assigned at Not on file Legal Sex Female 3:16 AM ARBORIST Gender Identity Not on file Sexual Orientation [...] CDT DISCHARGE SUMMARY Patient: MARGY SALDANA Account: [id number] Room No: 503-02 : 1980 Patient Type: [...] Diet: As tolerated. Followup Appointment: As per [facility]. Electronically Authenticated by: Arslan Funes MD On 06/20/2015 06:39 AM CDT Kaity Cordero/ct TD: 06/20/2015 02:24 documented in this encounter H&P Notes * ProviderJazmin MD - 06/16/2015 12:00 AM CDT HISTORY AND PHYSICAL Patient: MARGY SALDANA Account: [id number] Room No: 503-02 : 1980 Patient Type: [...] and then relapsed. She was admitted to [facility] with symptoms of acute opioid withdrawal. She [...] dependence. PLAN Continue medical stabilization on the [facility] Service with a methadone taper and [...] C genotype (06/16/2015 2:38 PM CDT) Pathologist [facility] HCV genotype Undetected Undetected HISTO RICAL RESULTS Comment: Assay failed to detect HCV RNA. This assay is not intended for HCV RNA detection purposes. ADDITIONAL INFORMATION This test was performed using the Stephen RealTime HCV Genotype II assay ([employer] [place], [place]). Serum 06/16/2015 2:38 PM CDT Narrative HISTORICAL RESULTS - 06/18/2015 5:13 PM CDT Test performed at [facility] Dept of Lab Medicine and Pathology, [address] [place] [address], [facility], [address]. Arslan Funes MD LAB BLOOD ORDERABLES Final Resu lt HISTORICAL RESULTS * (ABNORMAL) Plasma comprehensive metabolic panel (06/16/2015 12:17 PM CDT) Pathologist [facility] BUN 11 8 - 24 3939 HISTORICAL [...] HISTORICAL RESULTS Comment: If this individual is -Pakistani, multiply result by 1.21 Repeated results of [...] specimen (specimen) 06/16/2015 12:17 PM CDT Result [facility] Arslan Funes MD LAB BLOOD ORDERABLES Final Resu lt Performing Organization Address [facility] de Phone Number HISTORICAL RESULTS * Serum Human Immunodeficiency virus [HIV] 1and 2 ag/ab (06/16/2015 12:17 PM CDT) HIV 1 and 2, ag/ab Negative Negative HISTORICAL RESULTS Serum 06/16/2015 12:1 7 PM CDT Result [facility] Arslan Funes MD LAB BLOOD ORDERABLES Final Resu lt Performing Organization Address [facility] de Phone Number HISTORICAL RESULTS * Plasma prothrombin time (PT) (06/16/2015 12:17 PM CDT) Prothrombin time (PT) 12.8 9.5 - 13.0 seconds HISTORICAL RESULTS INR 1.18 0.90 - 1.20 HISTORIC AL RESULTS Plasma 06/16/2015 12:1 7 PM CDT Result [facility] Arslan Funes MD LAB BLOOD ORDERABLES Final Resu lt Performing Organization Address [facility] de Phone Number HISTORICAL RESULTS * Plasma partial thromboplastin time (PTT) (06/16/2015 12:17 PM CDT) APTT 28.6 25.0 - 37.0 seconds HISTORICAL RESULTS Plasma 06/16/2015 12:1 7 PM CDT Arslan Funes MD LAB BLOOD ORDERABLES Final Resu lt Performing Organization Address [facility] de Phone Number HISTORICAL RESULTS * Serum [...] ORDERABLES Final Resu lt Performing Organization Address [facility]/ZIP Co de Phone Number HISTORICAL RESULTS * [...] BLOOD ORDERABLES Final Resu Performing Organization Address [facility] de Phone Number HISTORICAL RESULTS * Urine chorionic gonadotropin (HCG) (06/16/2015 11:10 AM CDT) HCG, ur Negative HISTORICAL RESULTS Specific gravity, ur 1.028 HISTORICAL RESULTS Urine 06/16/2015 11:1 0 AM CDT Arslan Funes MD LAB BLOOD ORDERABLES Final Resu Performing Organization Address [facility] de Phone Number HISTORICAL RESULTS * [...]
--- OUTSIDE RECORDS SUMMARY | 2024-03-13 06:46 | XMS_ITS | Encounter Summary ---
Author Organization [facility] Healthcare Address [address] [place] [address] Care Team Providers Care Spaghetti Press Helper Name Role Phone Unavailable Primary Care Provider Unavailabl e Encounter Details Date Type Department Care Team (Late st Contact Info) Description 03/04/2020 Documentation [facility] Case Management [address] [place] [address] Lawrence Irby RN Social History Tobacco Use Types Packs/Day Years Used Date Smoking Tobacco: Never Smokeless Tobacco: Never Alcohol Use Standard Drinks/Week Comments Not Currently 0 (1 standard drink = 0.6 oz pur e alcohol) Comments No Sex and Gender Information Value Date Recorded Sex Assigned at Not on file Legal Sex Female 3:16 AM ANIMAL DOCTOR Gender Identity Not on file Sexual Orientation Not on file documented as of this encounter Plan of Treatment Not on file documented as of this encounter Visit Diagnoses Not on filedocumented in this encounter
--- OUTSIDE RECORDS SUMMARY | 2024-03-13 06:46 | XMS_ITS | Encounter Summary ---
Author Organization [facility] Healthcare Address [address] [place] [address] Care Team Providers Care Solvent Station Attendant Name Role Phone Unavailable Primary Care Provider Unavailabl e Reason for Visit * Reason Comments Multiple Medical Complaints I'm short of breath, heart racing, lump on the bottom of my gum. Encounter Details Date Type Department Care Team (Late st Contact Info) Description 02/28/2020 7:05 PM TEMPERER - 02/29/2020 6:37 AM [facility] Emergency [facility] Emergency Department [address] [place] [address] [place] [id number] [address] Palpitations (Primary Dx); Shortness of breath Discharge [...] on file Legal Sex Female 3:16 AM TEMPERER Gender Identity Not on file Sexual Orientation Not on file documented as of this encounter Last Filed Vital Signs Vital Sign Reading Time Taken Comments Blood Pressure 155/97 02/29/2020 3:40 AM TEMPERER Pulse 93 02/29/2020 6:20 AM TEMPERER Temperature 37.2 ??C (98.9 ??F) 02/28/2020 7:02 PM CS T Respiratory Rate 20 02/29/2020 6:20 AM TEMPERER Oxygen Saturation 96% 02/29/2020 3:52 AM TEMPERER Inhaled Oxygen Concentration - - Weight 72.6 kg (160 lb) 02/28/2020 7:02 PM TEMPERER Height 165.1 cm (5' 5 ) 02/28/2020 7:02 PM TEMPERER Body Mass Index 26.63 02/28/2020 7:02 PM TEMPERER documented in this encounter Discharge Diagnoses Diagnosis Palpitations - PALPITATIONS Shortness of breath - SHORTNESS OF BREATH Essential (primary) hypertension - ESSENTIAL (PRIMARY) HYPERTENSION Unspecified essential hypertension Bipolar disorder, unspecified (HCC) - BIPOLAR DISORDER, UNSPECIFIED Bipolar disorder, unspecified Anxiety disorder, unspecified - ANXIETY DISORDER, UNSPECIFIED documented in this encounter Discharge Instructions * Discharge Instructions* Donna Cabral MD - 02/29/2020 5:51 AM TEMPERER Please follow up with your primary care [...] pain, or other concerns On behalf of [facility] Healthcare, thank you for allowing us to participate in your medical care. ERER * Attachments The following attachments cannot be sent through Care Everywhere. * Heart Palpitations (AfterCare(R) Instructions(ER/ED)) (Cuban) documented in this encounter Medications at Time [...] of breath Donna Cabral MD 02/29/20 0551 ERER documented in this encounter Plan of Treatment Not on file documented as of this encounter Procedures Procedure Name Priority Date/Time Associated Diagnosis Comments CT CHEST PE W CONTRAST ED 0 4:15 AM TEMPERER TROPONIN T, 3 HOUR 5TH GEN Timed 02/29/2020 2:02 AM TEMPERER D-DIMER, QUANTITATIVE STAT 02/29/2020 2:02 AM TEMPERER XR CHEST 1 VIEW ED 02/28/2020 7:36 PM TEMPERER TROPONIN T 5TH GEN SERIES (BASELINE, 3HR, 6HR) STAT 02/28/2020 7:11 PM TEMPERER EGFR STAT 02/28/2020 7:11 PM TEMPERER DIFFERENTIAL AUTO STAT 02/28/2020 7:1 1 PM TEMPERER PRO B-TYPE NATRIURETIC PEPTIDE STAT 02/28/2020 7:11 PM TEMPERER THYROID FUNCTION CASCADE Routine 02/28/2020 7:11 PM TEMPERER CBC WITH AUTO DIFFERENTIAL STAT 02/28/2020 7:11 PM TEMPERER PROTIME-INR STAT 02/28/2020 7:11 PM TEMPERER COMPREHENSIVE METABOLIC PANEL STAT 02/28/2020 7:11 PM TEMPERER ECG 12-LEAD STAT 02/28/2020 6:59 PM TEMPERER documented in this encounter Results * CT Chest PE W Contrast (02/29/2020 4:15 AM TEMPERER) Anatomical Region Laterality Modality Body N/A Computed Tomogra phy 02/29/2020 7:19 AM TEMPERER Impressions 02/29/2020 7:21 AM TEMPERER No evidence of pulmonary emboli. Generalized small airways disease/bronchiolitis. Hepatic steatosis Stat report by [facility] Electronically signed by: Poli Le M.D. Narrative 02/29/2020 7:21 AM TEMPERER EXAMINATION: CT CHEST PE W CONTRAST HISTORY: [...] airways disease/bronchiolitis. Hepatic steatosis Stat report by [facility] Electronically signed by: Poli Le M.D. Donna Cabral MD IM CT PROCEDURES Rachna l Result * (ABNORMAL) D-dimer, quantitative (02/29/2020 2:02 AM TEMPERER) D-Dimer 1,112(H) <=499 ng/mL FEU [facility] Comment: [...] 2019. Blood specimen (specimen) 02/29/2020 2:02 AM TEMPERER 02/29/2020 2:25 AM TEMPERER Donna Cabral MD LAB BLOOD ORDERABLES F inal Result Performing Organization Address [facility] Co de Phone Number [facility] [address] [address] [place] [address] * Troponin T, 3 Hour 5th Gen (02/29/2020 2:02 AM TEMPERER) Troponin T, 3 Hr 5th Gen <6 6 - 14 ng/L [facility] Troponin T, 3 Hr Delta 0 ng/L [facility] Blood specimen (specimen) 02/29/2020 2:02 AM TEMPERER 02/29/2020 2:26 AM TEMPERER Mikael Sy MD LAB BLOOD ORDERABLES Final Result Performing Organization Address [facility] Co de Phone [facility] [place] [address] [address] [place] [address] * XR Chest 1 Vw Portable (02/28/2020 7:36 PM TEMPERER) Anatomical Region Laterality Modality Body, Chest N/A Computed Radiogr aphy 02/28/2020 10:3 2 PM TEMPERER Impressions 02/28/2020 10:32 PM TEMPERER Negative study. Electronically signed by: Cuauhtemoc Leo M.D. Narrative 02/28/2020 10:32 PM TEMPERER EXAMINATION: XR CHEST 1 VIEW HISTORY: The [...] reflex to free T4 (02/28/2020 7:11 PM TEMPERER) TSH 0.36 0.30 - 4.20 mcIUnit/mL [facility] Blood specimen (specimen) 02/28/2020 7:11 PM TEMPERER 02/29/2020 12:28 AM TEMPERER Donna Cabral MD LAB BLOOD ORDERABLES F inal Result Performing Organization Address City/State/[facility] Co de Phone Number [facility] [address] [address] [place] [address] * eGFR (02/28/2020 7:11 PM TEMPERER) eGFR 94 mL/min/1.7 3 m2 [facility] Comment: Interpretive Data Reference Interval Normal ?>/= 90 mL/min/1.73m2 Mildly decreased* ? 60 - 89 mL/min/1.73m2 Mildly to moderately decreased ?45 - 59 mL/min/1.73m2 Moderately to severely decreased ??30 - 44 mL/min/1.73m2 Severely decreased ?15 - 29 mL/min/1.73m2 Kidney Failure ?< 15 ??mL/min/1.73m2 *Relative to young adult level If -English multiply value by 1.16. Estimated glomerular filtration [...] 2015. Blood specimen (specimen) 02/28/2020 7:11 PM TEMPERER 02/28/2020 7:54 PM TEMPERER us Donna Cabral MD LAB BLOOD ORDERABLES F inal Result [facility] [address] [address] Department [place] [address] * (ABNORMAL) Differential, auto (02/28/2020 7:11 PM TEMPERER) Neutrophil abs 13.0(H) 1.7 - 6.5 K/cumm [facility] Imm gran abs 0.1 0.0 - 0.1 K/cumm [facility] Lymphocyte abs 0.9 0.8 - 3.3 K/cumm [facility] Monocyte abs 0.2 0.2 - 0.8 K/cumm [facility] Eosinophil abs 0.0 0.0 - 0.5 K/cumm [facility] Basophil abs 0.0 0.0 - 0.1 K/cumm [facility] Neutrophil pct 91.3 % [facility] Comment: Interpretive Data Percent cell count reference ranges are not reported, since discordance with absolute values may lead to misinterpretation of CBC data. Current Interpretive Data was last revised on 2017. Imm gran pct 0.6 % [facility] Comment: Interpretive Data Percent cell count reference ranges are not reported, since discordance with absolute values may lead to misinterpretation of CBC data. Current Interpretive Data was last revised on 2017. Lymphocyte pct 6.1 % [facility] Comment: Interpretive Data Percent cell count reference [...] 2017. Blood specimen (specimen) 02/28/2020 7:11 PM TEMPERER 02/28/2020 7:51 PM TEMPERER Donna Cabral MD LAB BLOOD ORDERABLES F inal Result [facility] [address] [address] [place] [address] * (ABNORMAL) Protime-INR (02/28/2020 7:11 PM TEMPERER) PT 14.2(H) 9.5 - 13.0 sec [facility] INR 1.2 0.9 - 1.2 [facility] Comment: Interpretive data Oral anticoagulant therapeutic ranges: Venous thromboembolism prophylaxis or treatment: 2.0-3.0 CARDIOLOGY Standard range: 2.0-3.0 High-intensity range: 2.5-3.5 Refer to indication-specific guidelines for appropriate target ranges for prosthetic heart valve replacement. Current interpretive data was last revised on 2019. Blood specimen (specimen) 02/28/2020 7:11 PM TEMPERER 02/28/2020 7:51 PM TEMPERER Donna Cabral MD LAB BLOOD ORDERABLES F inal Result Performing Organization Address City/[facility]/ZIP Co de Phone Number [facility] [address] [address] [address] * Troponin T 5th Gen series (Baseline, 3hr, 6hr) (02/28/2020 7:11 PM TEMPERER) Pathologist [facility] Troponin T, Baseline 5th Gen <6 6 - 14 ng/L [facility] Blood specimen (specimen) 02/28/2020 7:11 PM TEMPERER 02/28/2020 7:51 PM TEMPERER us Donna Cabral MD LAB BLOOD ORDERABLES F inal Result Performing Organization Address [facility] Co de Phone Number [facility] [address] [address] [place] [address] * Pro B-type natriuretic peptide (02/28/2020 7:11 PM TEMPERER) Pathologist [facility] NT-proBNP 146 <=300 pg/mL [facility] Comment: Interpretive Comments: A. Dyspnea in Acute [...] 2017. Blood specimen (specimen) 02/28/2020 7:11 PM TEMPERER 02/28/2020 7:51 PM TEMPERER us Donna Cabral MD LAB BLOOD ORDERABLES F inal Result [facility] [address] [address] [place] [address] * (ABNORMAL) Comprehensive metabolic panel (02/28/2020 7:11 PM TEMPERER) Sodium 139 135 - 145 mmol/L [facility] Potassium, pl 3.8 3.3 - 4.9 mmol/L [facility] Chloride 105 97 - 110 mmol/L [facility] CH CO2 20(L) 22 - 32 mmol/L [facility] CH Anion gap 14 2 - 15 mmol/L [facility] BUN 14 8 - 25 mg/dL [facility] Creatinine 0.79 0.60 - 1.10 mg/dL C[facility] [...] CH Blood specimen (specimen) 02/28/2020 7:11 PM TEMPERER 02/28/2020 7:51 PM TEMPERER us Donna Cabral MD LAB BLOOD ORDERABLES F inal Result [facility] [address] [address] [place] [address] * (ABNORMAL) CBC with auto differential (02/28/2020 7:11 PM TEMPERER) WBC 14.3(H) 3.8 - 9.9 K/cumm [facility] [...] CH Blood specimen (specimen) 02/28/2020 7:11 PM TEMPERER 02/28/2020 7:51 PM TEMPERER Donna Cabral MD LAB BLOOD ORDERABLES F inal Result Performing Organization Address City/[facility]/ZIP Co de Phone Number [facility] [address] [address] [place] [address] * ECG 12 lead (02/28/2020 6:59 PM TEMPERER) 02/28/2020 6:59 PM TEMPERER Narrative [facility] - 02/29/2020 1:06 PM TEMPERER Vent Rate: 119 bpm RR Interval: 503 msec [place] Interval: 146 msec QRS Duration: 88 msec QT Interval: 338 msec QTC Interval: 409 msec P-R-T [place]: 33 - 7 - 47 degrees SINUS TACHYCARDIA ABNORMAL RHYTHM ECG Electronically Signed By: Makenzie Saez MD Donna Cabral MD ECG ORDERABLES Final Result Performing Organization Address [facility] de Phone Number [facility] Structure Vision [facility] documented in this encounter Visit Diagnoses Diagnosis Palpitations- Primary Shortness of breath documented in this encounter Administered Medications Inactive Administered Medications - up to 3 most recent administrations Medication Order MAR Action Action Date Dose Rate Site acetaminophen (TYLENOL) tablet 650 mg 650 mg, oral, Once, On Tue02/29/20 at 0348, For 1 dose Given 02/29/2020 3:50 AM TEMPERER 650 mg ALPRAZolam (XANAX) tablet 0.5 mg 0.5 mg, oral, Once, On Tue02/29/20 at 0020, For 1 dose Given 02/29/2020 2:00 AM TEMPERER 0.5 mg amLODIPine (NORVASC) tablet 10 mg 10 mg, oral, Once, On Tue02/29/20 at 0020, For 1 dose Given 02/29/2020 2:01 AM TEMPERER 10 mg ioversoL (OPTIRAY 350) syringe syringe 100 mL 100 mL, intravenous, Once in imaging, contrast, Starting on Tue02/29/20 at 0359, For 1 dose Given 02/29/2020 4:01 AM TEMPERER 100 mL sodium chloride 0.9% bolus 1,000 mL 1,000 mL, intravenous, Once, On Tue02/29/20 at 0017, For 1 dose New Bag 02/29/2020 2:01 AM TEMPERER 1,000 mL documented in this encounter Active and Recently Administered Medications Times are shown in TEMPERER. Scheduled Medication Order 02/27/2020 02/28/2020 02/29/2020 acetaminophen [...]
--- OUTSIDE RECORDS SUMMARY | 2024-03-13 06:46 | XMS_ITS | Encounter Summary ---
Author Organization [facility] Healthcare Address [address] [place] [address] Care Team Providers Care Dope Worker Name Role Phone Unavailable Primary Care Provider Unavailabl e Encounter Details Date Type Department Care Team (Late st Contact Info) Description 07/26/2013 2:48 PM CDT - 07/29/2013 1:00 PM CDT Hospital Encounter [facility] Oscar Snow MD 1 [facility] [address] [place] [id number] Drug withdrawal (HCC); Opioid type dependence, continuous [...] on file Legal Sex Female 3:16 AM RN CCU Gender Identity Not on file Sexual Orientation [...] 07/29/2013 12:00 AM CDT DISCHARGE SUMMARY - [facility] Patient: MARGY SALDANA Account: [id number] Room No: 3616-01 : 1980 Patient Type: [...] a drug detox and withdrawal program in [place], [place] in April of this year. She [...] currently not employed, is on Medicaid of [place]. Her last drug usage was approximately 36 [...] discharged to home with followup plan at [facility] for which she is to call and [...] 10 to 14 days', as well as [facility] as scheduled. The patient is to call [...] HISTORY AND PHYSICAL Patient: MARGY SALDANA Account: [id number] Room No: 3616-01 : 1980 Patient Type: [...] drug detox/withdrawal program in April 2013 in [place], [place]. She states that she was clean [...] not employed and is on Medicaid of [place]. Her last drug usage was approximately 36 [...] palpitations, edema, shortness of breath, history of NE, dysrhythmia or hypertension. She denies any history [...] is A2. 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 [facility] Patient Name: MARGY SALDANA ? [facility] Healthcare Age: 32 YRS ?: 1980 ?Sex:F ?[address] )[phone] ?? Adm Dt: 07/26/2013 ?[place] ??[id number] Created: 07/30/2013 ??0030 ?? Pt. Type: I ? Discharge Dt: 07/29/2013 ? Pathologists: Noelle Wallace MD Admit Dr. oGrdillo Dr: OSCAR KWON MD ? BLOOD CELL [...] ?? CONTINUED ?Page: ?? 1 Patient No: [id number] ? [facility] Patient Name: MARGY SALDANA ? [facility] Age: 32 YRS ?: 1980 ?Sex:F ?[address] )[phone] ?? Adm Dt: 07/26/2013 ?[place], [place] ??[id number] Created: 07/30/2013 ??0030 ?? Pt. Type: I [...] ?? CONTINUED ?Page: ?? 2 Patient No: [id number] ? [facility] Patient Name: MARGY SALDANA ? [facility] Age: 32 YRS ?: 1980 ?Sex:F ?[address] )[phone] ?? Adm Dt: 07/26/2013 ?[place] ??[id number] Created: 07/30/2013 ??0030 ?? Pt. Type: I ? Discharge Dt: 07/29/2013 ? Pathologists: Noelle Wallace MD Admit Attend Dr: OSCAR KWON MD ? GENERAL CHEMISTRY ?Collection Date: ?07/26/13 ?Collection Time: ?1725 ? Ref Range: ?? Units: [0.60-1.30] ??MG/DL ?CREATININE ?1.05 f ?07/26/13 1725 eGFR:65 ml/min/1.73sq.m if non -Panamanian. eGFR: >70 ml/min/1.73sq.m if -Panamanian. AVE GFR for 30-39 yr. age group: 107 ml/min/1.73sq.m Calculated using MDRD Equation FOOTNOTE ADDED ON ?? 07/26/13 ?? AT 1957 BY 999 ??[25-115] ?? U/L ?AMYLASE ? 36 f ??[70-400] ?? U/L ?LIPASE ?93 Footnotes and Symbols: f = Footnote AMYLASE (02/11/10 -- Current) PLEASE SEE NEW REFERENCE RANGE ?? CONTINUED ?Page: ?? 3 Patient No: [id number] ? [facility] Patient Name: MARGY SALDANA ? [facility] Age: 32 YRS ?: 1980 ?Sex:F ?[address] )[id number] ?? Adm Dt: 07/26/2013 ?[place] ??[id number] Created: 07/30/2013 ??0030 ?? Pt. Type: I ? Discharge Dt: 07/29/2013 ? Pathologists: Noelle Wallcae MD Admit Attend Dr: OSCAR KWON MD [...] ?? CONTINUED ?Page: ?? 4 Patient No: [id number] ? [facility] Patient Name: MARGY SALDANA ? [facility] Age: 32 YRS ?: 1980 ?Sex:F ?[address] ?? Adm Dt: 07/26/2013 ?[place] ??[id number] Created: 07/30/2013 ??0030 ?? Pt. Type: I [...] ?? CONTINUED ?Page: ?? 5 Patient No: [id number] ? [facility] Patient Name: MARGY SALDANA ? [facility] Healthcare Age: 32 YRS ?: 1980 ?Sex:F ?[address] )[phone] ?? Adm Dt: 07/26/2013 ?[place], [place] ??[id number] Created: 07/30/2013 ??0030 ?? Pt. Type: I ? Discharge Dt: 07/29/2013 ? Pathologists: Noelle Wallace MD Admit Attend Dr: OSCAR KWON MD ?SKIN TESTS ?Collection Date: ?07/26/13 ?Collection Time: ?1725 ? Ref Range: ?? Units: ?TB DATE GIVEN ?27HBS40 ?TB TIME GIVEN ? 1730 ?TB ARM ?RT ARM ?TB READ BY ?[id number] ?TB DATE TO READ ?86UMH00 ?TB DATE READ ? 43EPG18 [NEGATIVE] ?TB RESULT ? NEGATIVE ?URINALYSIS ?Collection [...] ?? CONTINUED ?Page: ?? 6 Patient No: [id number] ? [facility] Patient Name: MARGY SALDANA ? [facility] Age: 32 YRS ?: 1980 ?Sex:F ?[address] )[phone] ?? Adm Dt: 07/26/2013 ?[place], [place] ??[id number] Created: 07/30/2013 ??0030 ?? Pt. Type: I [...] ?? CONTINUED ?Page: ?? 7 Patient No: [id number] ? [facility] Patient Name: MARGY SALDANA ? [facility] Age: 32 YRS ?: 1980 ?Sex:F ?[address] )[phone] ?? Adm Dt: 07/26/2013 ?[place], [place] ??[id number] Created: 07/30/2013 ??0030 ?? Pt. Type: I [...] ORDERABLES Rachna l Result Performing Organization Address [facility] de Phone Number HISTORICAL RESULTS * Plasma partial thromboplastin time (PTT) (07/26/2013 8:21 PM CDT) Pathologist [facility] APTT 30.0 -<35. seconds HISTOR ICAL RESULTS Plasma 07/26/2013 8:21 PM CDT Oscar Kwon MD LAB BLOOD ORDERABLES Fin al Result Performing Organization Address [facility] de Phone Number HISTORICAL RESULTS [...] ORDERABLES Fin al Result Performing Organization Address [facility]/ZIP Co de Phone Number HISTORICAL RESULTS * Skin Tuberculosis (07/26/2013 5:25 PM CDT) [facility] Site tested RTARM HISTORIC AL RESULTS Date given HISTORICA L RESULTS Time given 173 HISTORICA L RESULTS Date to be read HIST ORICAL RESULTS Date read HISTORICAL RESULTS Read by [id number] HISTORICAL RESULTS Tuberculin ab interpretation Negative NEGATIVE HISTORICAL RESULTS Skin, NOS 07/26/2013 5:25 PM CDT Oscar Kwon MD LAB BLOOD ORDERABLES Fin al Result Performing Organization Address [facility] de Phone Number HISTORICAL RESULTS * Serum lipase (07/26/2013 5:25 PM CDT) [facility] Lip 93 70 - 400 Units/L HISTORICAL RESULTS Serum 07/26/2013 5:25 PM CDT Oscar Kwon MD LAB BLOOD ORDERABLES Fin al Result Performing Organization Address [facility] de Phone Number HISTORICAL RESULTS [...] ORDERABLES Fin al Result Performing Organization Address [facility] Phone Number HISTORICAL RESULTS * Serum amylase (07/26/2013 5:25 PM CDT) Sherri, sr 36 25 - 115 IUnits/L HISTORICAL RESULTS Comment:PLEASE SEE NEW REFER ENCE RANGE Serum 07/26/2013 5:25 PM CDT Oscar Kwon MD LAB BLOOD ORDERABLES Fin al Result Performing Organization Address [facility] Co de Phone Number HISTORICAL RESULTS * [...] CDT Oscar Kwon MD LAB BLOOD ORDERABLES [facility] al Result HISTORICAL RESULTS * (ABNORMAL) Serum comprehensive metabolic panel (07/26/2013 5:25 PM CDT) Pathologist [facility] BUN 12.0 6.0 - 23.0 mg/dl HISTORICAL [...] HISTORICAL RESULTS Comment: eGFR:65 ml/min/1.73sq.m if non -Panamanian. eGFR: >70 ml/min/1.73sq.m if -Panamanian. AVE GFR for 30-39 yr. age group: [...] ORDERABLES Fin al Result Performing Organization Address [facility] de Phone Number HISTORICAL RESULTS * Urine chorionic gonadotropin (HCG) (07/26/2013 4:10 PM CDT) HCG, ur Negative NEGATIVE HISTORICAL RESULTS Urine 07/26/2013 4:10 PM CDT Oscar Kwon MD LAB BLOOD ORDERABLES Fin al Result Performing Organization Address [facility] de Phone Number HISTORICAL RESULTS [...] ORDERABLES Fin al Result Performing Organization Address [facility] de Phone Number HISTORICAL RESULTS [...] ORDERABLES Fin al Result Performing Organization Address [facility] de Phone Number HISTORICAL RESULTS [...] ORDERABLES Fin al Result Performing Organization Address City/[facility] Co de Phone Number HISTORICAL RESULTS * (ABNORMAL) Serum ethanol (07/26/2013 12:25 PM CDT) Ethanol, sr <10(A) -<10 mg/dl HISTORI ALIN RESULTS Serum 07/26/2013 12:2 5 PM CDT Narrative HISTORICAL RESULTS - 07/26/2013 2:57 PM CDT <10.O mg/dl = NO ETHANOL DETECTED NORMAL: ??NO ETHANOL DETECTED FOR MEDICAL PURPOSES ONLY us Oscar Kwon MD LAB BLOOD ORDERABLES Fin al Result Performing Organization Address [facility] de Phone Number HISTORICAL RESULTS * Microbiology Summary (07/26/2013 12:00 AM CDT) 07/26/2013 Narrative HISTORICAL RESULTS - 07/30/2013 12:32 AM CDT ? [facility] ?CLINICAL LABORATORIES ? MICROBIOLOGY REPORT PATIENT NAME: ??MARGY SALDANA ? MED RECORD#: ??[id number] BIRTHDATE: ??1980 ?? AGE: ??32 YRS SEX: F ?PATIENT#: ? [id number] ADMITTING DR: ??OSCAR KWON MD ? ATTENDING [...]
--- OUTSIDE RECORDS SUMMARY | 2024-03-13 06:46 | XMS_ITS | Encounter Summary ---
Author Organization [facility] Healthcare Address [address] [place] [address] Care Team Providers Care Centrifuge Separator Operator Name Role Phone Unavailable Primary Care Provider Unavailabl e Encounter Details Date Type Department Care Team (Late st Contact Info) Description 03/14/2014 11:53 AM POLICE INSPECTOR - 03/17/2014 3:44 PM POLICE INSPECTOR Hospital [place] [id number] [address] Drug withdrawal (HCC); Opioid abuse (HCC); Bipolar [...] on file Legal Sex Female 3:16 AM POLICE INSPECTOR Gender Identity Not on file Sexual Orientation Not on file documented as of this encounter Last Filed Vital Signs Vital Sign Reading Time Taken Comments Blood Pressure 113/60 03/17/2014 12:05 PM POLICE INSPECTOR Pulse 52 03/17/2014 12:05 PM POLICE INSPECTOR Temperature - - Respiratory Rate - - Oxygen Saturation - - Inhaled Oxygen Concentration - - Weight 69.7 kg (153 lb 10.6 oz) 014 12:16 PM POLICE INSPECTOR Height 162.6 cm (5' 4.02 ) 03/14/2014 1 2:16 PM POLICE INSPECTOR Body Mass Index 26.36 03/14/2014 12:16 PM POLICE INSPECTOR documented in this encounter Discharge Summaries * ProviderJazmin MD - 03/17/2014 12:00 AM CST DISCHARGE SUMMARY Patient: MARGY SALDANA Account: [id number] Room No: 505-02 : 1980 Patient Type: IP Attend.: Arslan Funes M.D. Admit Date: 03/14/2014 Dict.: Arslan Funes M.D. Disch. Date: 03/17/2014 Principal Diagnosis: Acute opiate withdrawal. Chief Complaint and Brief History of Present Illness: Please see History and Physical. Hospital Course: The patient underwent successful medical stabilization on the [facility] service with a methadone taper and other medications for symptomatic withdrawal. She is now stable and ready for discharge home. Discharge Medications: 1. Wellbutrin SR 150 mg daily 2. Diazepam 10 mg t.i.d. p.r.n. for anxiety. 3. Depakote ER 500 mg daily. 4. Clonidine 0.1 mg t.i.d. p.r.n. hot flashes and sweats. Activity and Diet: As tolerated. Followup Care: As per [facility]. Arslan Funes M.D. DLS/ct TD: 03/18/2014 03:50 Electronically Authenticated by: Arslan Funes MD On 03/18/2014 06:40 AM POLICE INSPECTOR documented in this encounter H&P Notes * Provider, MD Jazmin - 03/14/2014 12:00 AM CST HISTORY AND PHYSICAL Patient: MARGY SALDANA Account: [id number] Room No: 505-02 : 1980 Patient Type: IP Attend.: Arslan Funes M.D. Admit Date: 03/14/2014 Dict.: Arslan Funes M.D. Disch. Date: REASON FOR ADMISSION: Acute opiate withdrawal. CHIEF COMPLAINT/HISTORY OF PRESENT ILLNESS: This is a very pleasant 33-year-old female with a several-year history of using IV heroin, last use the day before admission, who is admitted to [facility] with symptoms of acute opiate withdrawal. She [...] withdrawal. PLAN: Continue medical stabilization on the [facility] service with methadone taper and medications for symptomatic relief including sweats and nausea. I will also continue her home medicines of Depakote and Wellbutrin. Further disposition to follow. Arslan Funes M.D. DLS/ms TD: 03/15/2014 16:38 Electronically Authenticated by: Arslan Funes MD On 03/16/2014 06:01 AM POLICE INSPECTOR documented in this encounter Plan of Treatment Not on file documented as of this encounter Procedures Procedure Name Priority Date/Time Associated Diagnosis Comments DISCHARGE LABORATORY CUMULATIVE REPORT 03/17/2014 PLASMA PROTHROMBIN TIME (PT) Routine 03/14/2014 10:47 PM POLICE INSPECTOR PLASMA PARTIAL THROMBOPLASTIN TIME (PTT) Routine 03/14/2014 10:47 PM POLICE INSPECTOR PLASMA LIPASE Routine 03/14/2014 10:47 PM POLICE INSPECTOR PLASMA COMPREHENSIVE METABOLIC PANEL Routine 03/14/2014 10:47 PM POLICE INSPECTOR PLASMA AMYLASE Routine 03/14/2014 10:47 PM POLICE INSPECTOR BLOOD CELL COUNT (CBC), MORPHOLOGIC EXAM Routine 03/14/2014 10:47 PM POLICE INSPECTOR URINE ANALYSIS AND MICROSCOPY Routine 03/14/2014 1:15 PM POLICE INSPECTOR URINE DRUG SCREEN Routine 03/14/2014 1:1 4 PM POLICE INSPECTOR URINE CHORIONIC GONADOTROPIN (HCG) Routine 03/14/2014 1:14 PM POLICE INSPECTOR documented in this encounter Results * DISCHARGE LABORATORY CUMULATIVE REPORT (03/17/2014) Narrative 03/17/2014 Ordered by an unspecified provider. us Historical Provider LAB BLOOD ORDERABLES Rachna l Result * Plasma prothrombin time (PT) (03/14/2014 10:47 PM POLICE INSPECTOR) Prothrombin time (PT) 14.1 11.5 - 15.5 seconds HISTORICAL RESULTS INR 1.05 0.81 - 1.21 HISTORIC AL RESULTS Plasma 03/14/2014 10:4 7 PM POLICE INSPECTOR Arslan Funes MD LAB BLOOD ORDERABLES Final Resu lt Performing Organization Address [facility] de Phone Number HISTORICAL RESULTS * Plasma partial thromboplastin time (PTT) (03/14/2014 10:47 PM POLICE INSPECTOR) APTT 30.1 21.5 - 39.0 seconds HISTORICAL RESULTS Plasma 03/14/2014 10:4 7 PM POLICE INSPECTOR Arslan Funes MD LAB BLOOD ORDERABLES Final Resu lt Performing Organization Address [facility] de Phone Number HISTORICAL RESULTS * (ABNORMAL) Blood cell count (CBC), morphologic exam (03/14/2014 10:47 PM POLICE INSPECTOR) WBC 7.3 3.8 - 9.8 K/cumm HISTORICAL [...] RESULTS Blood specimen (specimen) 03/14/2014 10:47 PM POLICE INSPECTOR Arslan Funes MD LAB BLOOD ORDERABLES Final Resu lt HISTORICAL RESULTS * Plasma comprehensive metabolic panel (03/14/2014 10:47 PM POLICE INSPECTOR) BUN 14 8 - 24 mg/dl HISTORICAL [...] HISTORICAL RESULTS Comment: If this individual is -Spanish, multiply result by 1.21 Repeated results of less than 60 is indicative of chronic kidney disease. MDRD formula has not been validated on individuals greater than 70 years old. Plasma 03/14/2014 10:4 7 PM POLICE INSPECTOR Arslan Funes MD LAB BLOOD ORDERABLES Final Resu lt Performing Organization Address [facility] de Phone Number HISTORICAL RESULTS * Plasma lipase (03/14/2014 10:47 PM POLICE INSPECTOR) Lip 32 20 - 50 Units/L HISTORICAL RESULTS Plasma 03/14/2014 10:4 7 PM POLICE INSPECTOR Arslan Funes MD LAB BLOOD ORDERABLES Final Resu Performing Organization Address [facility] de Phone Number HISTORICAL RESULTS * Plasma amylase (03/14/2014 10:47 PM POLICE INSPECTOR) Sherri, pl 48 28 - 100 Units/L HISTORICAL RESULTS Plasma 03/14/2014 10:4 7 PM POLICE INSPECTOR Arslan Funes MD LAB BLOOD ORDERABLES Final Resu Performing Organization Address [facility] de Phone Number HISTORICAL RESULTS * (ABNORMAL) Urine analysis and microscopy (03/14/2014 1:15 PM POLICE INSPECTOR) Color, ur Yellow HISTORICAL RESULTS Clarity, ur [...] Present HISTORICAL RESULTS Urine 03/14/2014 1:15 PM POLICE INSPECTOR Result [facility] Arslan Funes MD LAB BLOOD ORDERABLES Final Resu lt Performing Organization Address [facility] de Phone Number HISTORICAL RESULTS * Urine chorionic gonadotropin (HCG) (03/14/2014 1:14 PM POLICE INSPECTOR) HCG, ur Negative HISTORICAL RESULTS Specific gravity, ur 1.027 HISTORICAL RESULTS Urine 03/14/2014 1:14 PM POLICE INSPECTOR Result [facility] Arslan Funes MD LAB BLOOD ORDERABLES Final Resu lt Performing Organization Address [facility] de Phone Number HISTORICAL RESULTS * (ABNORMAL) Urine drug screen (03/14/2014 1:14 PM POLICE INSPECTOR) Amphetamine, ur Negative Negative HISTORICAL RESULTS Barbiturates, [...] Average HISTORICAL RESULTS Urine 03/14/2014 1:14 PM POLICE INSPECTOR Result [facility] Arslan Funes MD LAB BLOOD ORDERABLES Final Resu lt Performing Organization Address [facility] de Phone Number HISTORICAL RESULTS documented in [...]
--- OUTSIDE RECORDS SUMMARY | 2024-03-13 06:46 | XMS_ITS | Encounter Summary ---
Author Organization [facility] Healthcare Address [address] [place] [address] Care Team Providers Care Tattooer Name Role Phone Unavailable Primary Care Provider Unavailabl e Encounter Details Date Type Department Care Team (Latest Contact Info) Description 02/28/2020 7:16 PM MACHINE UMBRELLA TIPPER - 02/28/2020 11:59 PM MACHINE UMBRELLA TIPPER Hospital Encounter [facility] [address] [place] [address] [place] [id number] [address] Discharge Disposition: Discharge to home or self care Social History Tobacco Use Types Packs/Day Years Used Date Smoking Tobacco: Never Smokeless Tobacco: Never Alcohol Use Standard Drinks/Week Comments Not Currently 0 (1 standard drink = 0.6 oz pur e alcohol) Comments No Sex and Gender Information Value Date Recorded Sex Assigned at Not on file Legal Sex Female 3:16 AM MACHINE UMBRELLA TIPPER Gender Identity Not on file Sexual Orientation Not on file documented as of this encounter Discharge Disposition Disposition Code Departure Means Destination Discharge to home or self care documented in this encounter Plan of Treatment Not on file documented as of this encounter Procedures Procedure Name Priority Date/Time Associated Diagnosis Comments XR CHEST 1 VIEW ED 02/28/2020 7:36 PM MACHINE UMBRELLA TIPPER documented in this encounter Results * XR Chest 1 Vw Portable (02/28/2020 7:36 PM MACHINE UMBRELLA TIPPER) Anatomical Region Laterality Modality Body, Chest N/A Computed Radiogr aphy 02/28/2020 10:3 2 PM MACHINE UMBRELLA TIPPER Impressions 02/28/2020 10:32 PM MACHINE UMBRELLA TIPPER Negative study. Electronically signed by: Cuauhtemoc Leo M.D. [facility] 02/28/2020 10:32 PM MACHINE UMBRELLA TIPPER EXAMINATION: XR CHEST 1 VIEW HISTORY: The [...]
--- OUTSIDE RECORDS SUMMARY | 2024-03-13 06:46 | XMS_ITS | Encounter Summary ---
Author Organization [facility] Healthcare Address [address] [place] [address] Care Team Providers Care Gourmet Coffee Attendant Name Role Phone No, Physician Primary Care Provider [phone] Reason for Visit * Reason Comments Palpitations feels shaky, heart i s jumping around, dull pain in chest x2 days Encounter Details Date Type Department Care Team (Late st Contact Info) Description 02/02/2021 1:01 AM COMPLAINT COORDINATOR - 02/02/2021 2:10 AM [facility] Emergency Department [address] [place] [address] Discharge Disposition: Left Against Medical Advice Social History Tobacco Use Types Packs/Day Years Used Date Smoking Tobacco: Never Smokeless Tobacco: Never Alcohol Use Standard Drinks/Week Comments Not Currently 0 (1 standard drink = 0.6 oz pur e alcohol) Comments No Sex and Gender Information Value Date Recorded Sex Assigned at Not on file Legal Sex Female 3:16 AM COMPLAINT COORDINATOR Gender Identity Not on file Sexual Orientation Not on file documented as of this encounter Last Filed Vital Signs Vital Sign Reading Time Taken Comments Blood Pressure 189/100 02/01/2021 4:45 PM COMPLAINT COORDINATOR Pulse 100 02/01/2021 4:45 PM COMPLAINT COORDINATOR Temperature 37.2 ??C (98.9 ??F) 02/01/2021 4:45 PM CS T Respiratory Rate 16 02/01/2021 4:45 PM COMPLAINT COORDINATOR Oxygen Saturation 100% 02/01/2021 4:45 PM COMPLAINT COORDINATOR Inhaled Oxygen Concentration - - Weight 77.1 kg (170 lb) 02/01/2021 4:45 PM COMPLAINT COORDINATOR Height 165.1 cm (5' 5 ) 02/01/2021 4:45 PM COMPLAINT COORDINATOR Body Mass Index 28.29 02/01/2021 4:45 PM COMPLAINT COORDINATOR documented in this encounter Discharge Diagnoses Diagnosis [...] Nelida Rudd PA - 02/01/2021 5:04 PM COMPLAINT COORDINATOR 40 yo female presents to the ED [...] to re-assess, review workup and set disposition LAINT COORDINATOR documented in this encounter Plan of Treatment Scheduled Orders Name Type Priority Associated Diagnoses Orde r Schedule Urinalysis reflex to microscopic and culture Urine Microbiology STAT STAT for 1 Occurrences starting 02/01/2021 until 02/01/2021 documented as of this encounter Procedures Procedure Name Priority Date/Time Associated Diagnosis Comments ECG 12-LEAD STAT 02/01/2021 4:44 PM COMPLAINT COORDINATOR documented in this encounter Results * ECG 12 lead (02/01/2021 4:44 PM COMPLAINT COORDINATOR) 02/01/2021 4:44 PM COMPLAINT COORDINATOR Narrative [facility] - 02/01/2021 9:47 PM COMPLAINT COORDINATOR Vent Rate: 88 bpm RR Interval: 676 msec [place] Interval: 152 msec QRS Duration: 96 msec QT Interval: 334 msec QTC Interval: 380 msec P-R-T [place]: 29 - 12 - 57 degrees SINUS RHYTHM NONSPECIFIC T-WAVE ABNORMALITY BORDERLINE ECG Electronically Signed By: Dr. Romelia Kruse [facility] us Lenin Koroma MD ECG ORDERABLES Final R esult [facility] documented in this encounter Visit Diagnoses Not on filedocumented in this encounter Care Teams Gourmet Coffee Attendant Relationship Specialty Start Date End Date No, Physician PCP - General 01/31/21 documented as of this encounter
== END 2024-03-09 21:20 | disposition home or self-care (01) ==
PROVIDERS: Emergency Provider Emergency Medicine
DX: E86.0 Dehydration (principal); R11.2 Nausea with vomiting, unspecified; Z90.710 Acquired absence of both cervix and uterus
CPT/HCPCS: 36415; 71046; 80053; 83690; 84484; 85025; 85610; 85730; 93005; 96361; 96374; 99284; A9270; J2550; J7030

== ENCOUNTER 2024-03-17 21:11 | Emergency (ER) | payer OTHER, SELFPAY ==
--- NOTE | ~2024-03-17 | XR_ITS ---
XR chest 2V DATE: 03/17/2024 21:42 INDICATION: Chest pain, cough TECHNIQUE: 2 views COMPARISON: 03/09/2024 2 view chest FINDINGS: Normal heart size. No hilar or mediastinal enlargement. No pulmonary infiltrate or consolid ation, pleural effusion or pulmonary vascular congestion or pneumothorax is detected. Included skeletal structures are unremarkable. IMPRESSION: No active cardiopulmonary disease Reviewed, dictated and finalized at location [facility]
[2024-03-17 21:19] VITALS: BP 177/102; PULSE 122; RESP 14; TEMP 31.7; O2SAT 100
--- NOTE | 2024-03-17 21:21 | ECG_ITS ---
Test Date: 2024-03-17 21:29:01 Measurements Intervals [place] Rate: 115 P: 22 UT: 159 QRS: 12 QRSD: 82 T: 15 QT: 327 QTc: 453 Interpretive Statements SINUS TACHYCARDIA POSSIBLE LEFT ATRIAL ENLARGEMENT [-0.1mV P-WAVE IN V1/V2] NONSPECIFIC T-WAVE ABNORMALITY ABNORMAL RHYTHM ECG Compared to ECG 03/09/2024 18:59:04 T-wave abnormality now present Sinus rhythm no longer present Electronically Signed On 03-18-2024 10:22:12 UNIT AID by Romelia Kruse M.D.
[2024-03-17] MEDS: ASPIRIN 81 MG CHEWABLE TABLET 324 MG PO (21:25)
--- NOTE | 2024-03-17 21:32 | ED.GENADULT ---
HPI - General Adult General Chief complaint: Chest Pain Stated complaint: chest pain, palpitations ,[id number] fvc 7 Time Seen by Provider: 03/17/24 21:21 History of Present Illness HPI narrative: 43-year-old female presenting to the emergency department for evaluation for chest pain body aches rapid heart rate. Patient does have history of fentanyl abuse and did report using fentanyl approximately 2 days ago. Related Data Home Medications ?Medication ?Instructions ?Recorded ?Confirmed ?Last Taken ?Type methadone 190 mg PO DAILY 02/03/21 06/30/22 02/02/21 History famotidine 20 mg tablet (Pepcid) 20 mg PO BID PRN Stomach Upset 06/30/22 06/30/22 Unknown History Allergies Allergy/AdvReac Type Severity Reaction Status Date / Time methadone Allergy Severe Other Verified 03/17/24 21:12 amoxicillin Allergy Mild Rash Verified 03/17/24 21:12 clindamycin Allergy Mild Rash Verified 03/17/24 21:12 sumatriptan Allergy Mild ANAPHALAXIS, Verified 03/17/24 21:12 WHEEZING Sulfa (Sulfonamide AdvReac Hives Verified 03/17/24 21:12 Antibiotics) [facility] Past Medical History Medical History Bipolar disorder Depression Anxiety Opioid abuse Hypertension Surgical History Surgical History History of tubal ligation History of hysterectomy Family History Family History Mother Atrial fibrillation Social History Social History Social History: Surrogate medical decision maker: Maria L Cuevas, mother. Code status: Full code. Smoking status: Never smoker Alcohol intake: never Substance use: former Substance use type: heroin, opiates, painkillers and IV drugs Other substance usage details: fentanyl Last use: 06/29/22 Lack of Transportation: No Lack of Food: Never True Current Housing: I Have Housing Concerned About Future Housing: No Difficulty Paying Gas/Electric Bills: No Difficulty Paying for Meds: No Currently Unemployed: No Education: Associate Degree Difficulty w/ Childcare or Family Care: No Additional living arrangements comments: Lives in [place]. with 3 children. Spiritual care concerns: No Exam Narrative: APPEARANCE: Uncomfortable appearing HEAD: normocephalic, atraumatic. EYES: PERRLA/EOMI, conjunctivae clear. NOSE: Normal no drainage EARS:TMS clear with good light reflex. THROAT: Pharynx clear, no exudate. NECK: Supple. No adenopathy, no masses. RESPIRATORY: Airway patent, respirations nonlabored. Clear to auscultation bilaterally, no rales, rhonchi, wheezing. CARDIOVASCULAR: Regular rate and rhythm without murmurs rubs or gallops. ABDOMINAL: Soft, nontender, nondistended, normal bowel sounds MUSCULOSKELETAL: Moves all extremities. Strength/ROM intact, No edema, No calf tenderness. NEURO: Alert. Cranial nerves II through XII intact. Grossly intact SKIN: Warm, dry. Normal Color Course Vital Signs Vital signs: Vital Signs Temperature 89.1 F L 03/17/24 21:19 Pulse Rate 122 H 03/17/24 21:19 Respiratory Rate 14 03/17/24 21:19 Blood Pressure 177/102 H 03/17/24 21:19 Pulse Oximetry 100 03/17/24 21:19 Oxygen Delivery Room Air 03/17/24 21:19 Temperature 89.1 F L 03/17/24 21:19 Pulse Rate 104 H 03/18/24 01:12 Respiratory Rate 18 03/18/24 01:12 Blood Pressure 162/106 H 03/18/24 01:12 Pulse Oximetry 98 03/18/24 01:12 Oxygen Delivery Room Air 03/17/24 21:33 Medical Decision Making [facility] Narrative Medical decision making narrative: 43-year-old female presents emergency department for evaluation for chest pain and fatigue that is been going on for the last few days. Patient is afebrile with no leukocytosis but a hemoglobin of 9.8. Patient's INR is 1.2. No significant abnormalities on the patient's CMP patient's troponin was negative patient's lipase was negative patient was positive for COVID. Chest x-ray showed no acute cardiopulmonary abnormality. EKG showed normal sinus rhythm. Suspect patient's symptoms are secondary to her current COVID infection. Low concern for ACS. Patient was updated the results of workup was encouraged of close follow-up with primary care physician. All questions concerns were addressed. Differential Diagnosis Differential Diagnosis: Influenza, COVID RSV, pneumonia, pneumothorax Vital Signs Vital Signs: Vital Signs Temperature 89.1 F L 03/17/24 21:19 Pulse Rate 122 H 03/17/24 21:19 Respiratory Rate 14 03/17/24 21:19 Blood Pressure 177/102 H 03/17/24 21:19 Pulse Oximetry 100 03/17/24 21:19 Oxygen Delivery Room Air 03/17/24 21:19 Temperature 89.1 F L 03/17/24 21:19 Pulse Rate 104 H 03/18/24 01:12 Respiratory Rate 18 03/18/24 01:12 Blood Pressure 162/106 H 03/18/24 01:12 Pulse Oximetry 98 03/18/24 01:12 Oxygen Delivery Room Air 03/17/24 21:33 Lab Data 03/17/24 23:11 03/17/24 23:11 Labs: Lab Results 03/17/24 03/17/24 Range/Units 23:11 23:51 WBC 7.0 (4.5-10.0) K/mm3 RBC 4.07 L (4.2-5.4) M/mm3 Hgb 9.8 L (12.0-15.0) g/dL Hct 30.8 L (37.0-47.0) % MCV 75.7 L (80-100) fl MCH 24.1 L (26-34) pg MCHC 31.8 L (32-36) g/dl RDW 16.1 H (11.5-14.5) % Plt Count 182 (150-375) k/mm3 MPV 10.9 H (7.4-10.4) fl Immature Gran % (Auto) 0.3 (0-0.5) % Neut % (Auto) 76.3 H (45.5-73.1) % Lymph % (Auto) 15.9 L (18.3-44.2) % Foard % (Auto) 7.2 (2.6-8.5) % Eos % (Auto) 0.0 (0-4.4) % Baso % (Auto) 0.3 (0.2-1.2) % Lymph # (Auto) 1.11 (0.9-3.2) K/mm3 Foard # (Auto) 0.5 (0.1-0.6) K/mm3 Eos # (Auto) 0.0 (0-0.3) K/mm3 Baso # (Auto) 0.0 (0.0-0.1) K/mm3 Abs Immat Gran (auto) 0.02 (0.00-0.031) K/mm3 Absolute Neuts (auto) 5.3 (1.3-6.7) K/mm3 Absolute Nucleated RBC 0.000 (0.0-0.012) K/mm3 Nucleated RBC % 0.0 (0.0-0.2) % PT 15.4 H (11.1-14.7) Seconds INR 1.2 APTT 33.4 (22.3-36.8) Seconds Sodium 139 (137-145) mmol/L Potassium 3.2 L (3.4-5.0) mmol/L Chloride 110 H (98-107) mmol/L Carbon Dioxide 20 L (22-30) mmol/L Anion Gap 9 (4-12) mmol/L BUN 16 (7-17) mg/dL Creatinine 1.00 (0.7-1.0) mg/dL Estim Creat Clear Calc 58 ml/min Estimated GFR > 60 (59 - ) Glucose 98 (65-110) mg/dL Calcium 8.6 (8.4-10.2) mg/dL Total Bilirubin 0.8 (0.2-1.3) mg/dL AST 29 (14-36) U/L ALT 13 (6-35) U/L Alkaline Phosphatase 93 (38-126) U/L Troponin I 0.018 (0.000-0.034) ng/mL Total Protein 7.0 (6.3-8.2) g/dL Albumin 3.6 (3.5-5.1) g/dL Lipase 71 (23-300) U/L Influenza A (RT-PCR) Negative (Negative) Influenza B (RT-PCR) Negative (Negative) RSV (RT-PCR) Negative (Negative) SARS-CoV-2 RNA (RT-PCR) Positive A (Negative) Discharge Plan Discharge Clinical Impression: COVID Patient Disposition: Home, Self-Care Condition: Stable Instructions: Antibiotic Form, COVID-19 (Coronavirus Disease 2019) (ED) Additional Instructions: Have close follow-up with your primary care physician. Tylenol and ibuprofen for pain control. Albuterol inhaler for cough and congestion. Tessalon Perles for cough. Plenty of fluids. Patient Language: Polish Prescriptions: New albuterol sulfate 90 mcg/actuation HFA aerosol inhaler 1 inh inhalation QID PRN (Reason: shortness of breath or wheezing) Qty: 6.7 0RF benzonatate 100 mg capsule 100 mg PO TID PRN (Reason: cough) Qty: 14 0RF No Action methadone 190 mg PO DAILY Patient Comments: [facility] NURSE DARIUS CONFIRMED DOSE STATED BY PT [phone] (DME) blood pressure monitor [Blood Pressure Kit] Kit See Rx Instructions .Route Qty: 1 0RF Rx Instructions: As directed famotidine [Pepcid] 20 mg Tablet 20 mg PO BID PRN (Reason: Stomach Upset) promethazine 25 mg tablet 25 mg PO TID PRN (Reason: nausea and vomiting) Qty: 14 0RF doxycycline hyclate 100 mg capsule 100 mg PO BID 7 Days Qty: 14 0RF hydroxyzine pamoate [Vistaril] 25 mg capsule 25 mg PO BID PRN (Reason: nausea and vomiting) Qty: 14 0RF Follow-up/Referrals: UNKNOWN,DOCTOR [Non-Staff] -
[2024-03-17 23:17] LABS: Basophils Percent Auto 0.3 % (0.2-1.2); Hematocrit 30.8 % (37.0-47.0); Hemoglobin 9.8 g/dL (12.0-15.0); Immature Granulocyte Absolute 0.02 K/mm3 (0.00-0.031); Immature Granulocyte Percent A 0.3 % (0-0.5); Lymphocytes Absolute Auto 1.11 K/mm3 (0.9-3.2); Lymphocytes Percent Auto 15.9 % (18.3-44.2); Mean Corpuscular HGB Conc 31.8 g/dl (32-36); Mean Corpuscular Hemoglobin 24.1 pg (26-34); Mean Corpuscular Volume 75.7 fl (80-100); Mean Platelet Volume 10.9 fl (7.4-10.4); Monocytes Absolute Auto 0.5 K/mm3 (0.1-0.6); Monocytes Percent Auto 7.2 % (2.6-8.5); Neutrophils Absolute Auto 5.3 K/mm3 (1.3-6.7); Neutrophils Percent Auto 76.3 % (45.5-73.1); Platelet Count Result 182 k/mm3 (150-375); Red Blood Count 4.07 M/mm3 (4.2-5.4); Red Cell Distribution Width 16.1 % (11.5-14.5)
[2024-03-17 23:26] LABS: Alanine Aminotransferase 13 U/L (6-35); Albumin Level 3.6 g/dL (3.5-5.1); Alkaline Phosphatase 93 U/L (38-126); Anion Gap 9 mmol/L (4-12); Aspartate Amino Transferase 29 U/L (14-36); Bilirubin,Total 0.8 mg/dL (0.2-1.3); Blood Urea Nitrogen 16 mg/dL (7-17); Calcium 8.6 mg/dL (8.4-10.2); Carbon Dioxide 20 mmol/L (22-30); Chloride 110 mmol/L (98-107); Estimated CRCL calculation 58 ml/min; Estimated Glomerular Filt Rate > 60; Glucose 98 mg/dL (65-110); Lipase 71 U/L (23-300); Potassium 3.2 mmol/L (3.4-5.0); Sodium 139 mmol/L (137-145)
[2024-03-17 23:27] LABS: INR 1.2; Prothrombin Time 15.4 Seconds (11.1-14.7)
[2024-03-17 23:28] LABS: Partial Thromboplastin Time 33.4 Seconds (22.3-36.8)
[2024-03-17 23:37] LABS: Troponin I 0.018 ng/mL (0.000-0.034)
[2024-03-18 00:39] LABS: Influenza A QL RT-PCR Negative (Negative); Influenza B QL RT-PCR Negative (Negative); RSV RNA, RT-PCR Negative (Negative); SARS-CoV-2 RNA PCR Positive (Negative)
[2024-03-18 00:50] VITALS: BP 169/110; PULSE 110; RESP 12; O2SAT 98
[2024-03-18 01:12] VITALS: BP 162/106; PULSE 104; RESP 18; O2SAT 98
== END 2024-03-18 01:13 | disposition home or self-care (01) ==
PROVIDERS: Emergency Provider Emergency Medicine; PCP Physician Assistant
DX: U07.1 COVID-19 (principal); F31.9 Bipolar disorder, unspecified; I10 Essential (primary) hypertension
CPT/HCPCS: 36415; 71046; 80053; 83690; 84484; 85025; 85610; 85730; 87637; 93005; 99284; A9270